=== PATIENT | male | born 1930 | race Caucasian/White ===

== ENCOUNTER 2017-07-25 11:03 | Day surgery (SDC) | payer MEDICARE, OTHER ==
[~2017-07-25] VITALS: Ht 175.3 cm; Wt 83.0 kg
[~2017-07-25 11:03] MED LIST: AGGRCAP; ALTA5CAP; ASPI1TAB PO; ATOR1TAB19 PO; AVAN8TAB3; COLA100C5 PO; CYAN1000VL IM; GLUC1000; HYDR25TA6; LIPI10TA; METF10004 PO; OFLOXACIN 0.3 % (OCUFLOX) OPTH SOL 5ML OS ONE; OMEP20CA3 PO; PHENYLEPHRINE 2.5% OPHTH SOL 2ML OS ONE; PRIL20CA; PROPARACAINE 0.5% OPHTH SOL 15ML OS ONE; TRAD5TAB PO; TROPICAMIDE 1% OPHTH SOLN 2ML OS ONE; VITA100066 PO; VITAMIN B 12; [UNRECOGNIZED DRUG - OTHER] PO
[2017-07-25] MEDS ORDERED: MIDAZOLAM INJ 2 MG/2 ML VIAL (J2250) As Ordered ONE (14:28)
[2017-07-25] MEDS ORDERED: fentaNYL 100 MCG/2 ML INJECTION (J3010) As Ordered ONE (14:28)
[2017-07-25] MEDS ORDERED: DUOVISC (0.50ML VISCOAT/0.55ML PROVISC) OPHTH KIT As Ordered ONE (14:44)
[2017-07-25] MEDS ORDERED: BALANCED SALT IRRIGATION SOLUTION 500ML BAG (FOR OR EYE MACHINE) As Ordered ONE (14:44)
[2017-07-25] MEDS ORDERED: ACETYLCHOLINE OPHTH SOLN 1% 2ML (MIOCHOL-E) As Ordered ONE (14:44)
[2017-07-25] MEDS ORDERED: CEFUROXIME 1MG/0.1ML INTRACAMERAL INJ As Ordered ONE (14:44)
[2017-07-25] MEDS ORDERED: POVIDONE-IODINE 5% OPHTH PREP SOL 30ML As Ordered ONE (14:44)
[2017-07-25] MEDS ORDERED: LIDOCAINE 0.75%/EPINEPHRINE 0.025% IN BSS 1ML SYR INTRACAMERAL (OR ONLY) As Ordered ONE (14:44)
[2017-07-25] MEDS ORDERED: LABETALOL HCL 100 MG/20 ML VIAL As Ordered ONE (14:58)
[2017-07-25 15:45] VITALS: BP 238/103
--- NOTE | 2017-07-26 13:11 | RO ---
DATE OF PROCEDURE: 07/25/2017 PREOPERATIVE DIAGNOSIS: Visually significant nuclear sclerotic cataract left eye. POSTOPERATIVE DIAGNOSIS: Visually significant nuclear sclerotic cataract left eye. PROCEDURE: Cataract extraction with use of phacoemulsification and placement of intraocular lens, AU00T0, 25 diopter, left eye. SURGEON: Arnaldo Flores DO SAMPLE HAND: ANESTHESIA: Local with monitored anesthesia care (MAC). COMPLICATIONS: None. POSTOPERATIVE CONDITION: Stable. INDICATION FOR SURGERY: Blurred vision left eye affecting patient's activities of daily living. DESCRIPTION OF PROCEDURE: The patient was seen in the preoperative area and properly identified. The correct operative eye was identified and marked. Attention was turned to that eye. The patient received topical antibiotics in the preoperative area. The patient then received topical dilating drops consisting of tropicamide and phenylephrine. The patient was then transferred to the operating room. The correct side was re-identified. The patient received topical anesthetics and antibiotics on the surface of the eye. The eye was prepped and draped in a sterile fashion. The upper and lower eyelids were isolated with Tegaderm tape, and the lids were held open with an adjustable speculum. Using a sideport blade, a paracentesis incision was made. Intraocular preservative-free lidocaine was then injected into the anterior chamber. Viscoelastic was then injected into the anterior chamber through the paracentesis. Using a 2.65 mm sharp-tipped keratome, the anterior chamber was entered via a temporal clear corneal incision. A continuous curvilinear capsulorrhexis was created with the aid of a 26-gauge cystotome and Utrata forceps. Hydrodissection was performed with balanced salt solution (BSS) on a blunt cannula until the nucleus was freely mobile. The crystalline lens was phacoemulsified and aspirated. Additional cohesive viscoelastic was placed into the capsular bag to deepen it. A AU00T0, 25 diopter lens was placed into the capsular bag and confirmed by visualizing the continuous curvilinear capsulorrhexis. Additional irrigation and aspiration was used to remove cortical material and remaining viscoelastic. The clear corneal incision was hydrated with BSS on a blunt cannula. The lens was well positioned. The incisions were then tested for leaks and found to be negative. The eye was then palpated for appropriate pressure and adjusted accordingly with BSS. The eyelid speculum was carefully removed. TobraDex ointment was placed in the eye. An eye patch and shield were then secured over the eye. The patient tolerated the procedure well and was discharged to the recovery unit in a stable condition.
== END 2017-07-25 16:10 | disposition home or self-care (01) ==
LOC: M SDC 11:03
PROVIDERS: ATTEND Ophthalmology
DX: H25.12 Age-related nuclear cataract, left eye (principal); E11.9 Type 2 diabetes mellitus without complications; Z79.82 Long term (current) use of aspirin; E78.4 Other hyperlipidemia; K21.9 Gastro-esophageal reflux disease without esophagitis; Z87.891 Personal history of nicotine dependence; Z79.899 Other long term (current) drug therapy
CPT/HCPCS: 66984; J2250; J3010; V2632

== ENCOUNTER 2017-08-01 08:48 | Day surgery (SDC) | payer MEDICARE, OTHER ==
[~2017-08-01] VITALS: Ht 175.3 cm; Wt 81.2 kg
[~2017-08-01 08:48] MED LIST changes: +OFLOXACIN 0.3 % (OCUFLOX) OPTH SOL 5ML OD ONE; -OFLOXACIN 0.3 % (OCUFLOX) OPTH SOL 5ML OS ONE; +PHENYLEPHRINE 2.5% OPHTH SOL 2ML OD ONE; -PHENYLEPHRINE 2.5% OPHTH SOL 2ML OS ONE; +PROPARACAINE 0.5% OPHTH SOL 15ML OD ONE; -PROPARACAINE 0.5% OPHTH SOL 15ML OS ONE; +TROPICAMIDE 1% OPHTH SOLN 2ML OD ONE; -TROPICAMIDE 1% OPHTH SOLN 2ML OS ONE
[2017-08-01] MEDS ORDERED: POVIDONE-IODINE 5% OPHTH PREP SOL 30ML As Ordered ONE (10:00)
[2017-08-01] MEDS ORDERED: BALANCED SALT IRRIGATION SOLUTION 500ML BAG (FOR OR EYE MACHINE) As Ordered ONE (10:00)
[2017-08-01] MEDS ORDERED: ACETYLCHOLINE OPHTH SOLN 1% 2ML (MIOCHOL-E) As Ordered ONE (10:00)
[2017-08-01] MEDS ORDERED: LIDOCAINE 0.75%/EPINEPHRINE 0.025% IN BSS 1ML SYR INTRACAMERAL (OR ONLY) As Ordered ONE (10:01)
[2017-08-01] MEDS ORDERED: DUOVISC (0.50ML VISCOAT/0.55ML PROVISC) OPHTH KIT As Ordered ONE (10:01)
[2017-08-01] MEDS ORDERED: CEFUROXIME 1MG/0.1ML INTRACAMERAL INJ As Ordered ONE (10:01)
[2017-08-01] MEDS ORDERED: fentaNYL 100 MCG/2 ML INJECTION (J3010) As Ordered ONE (10:15)
[2017-08-01] MEDS ORDERED: MIDAZOLAM INJ 2 MG/2 ML VIAL (J2250) As Ordered ONE (10:15)
[2017-08-01 11:05] VITALS: BP 181/84
--- NOTE | 2017-08-02 20:06 | RO ---
DATE OF PROCEDURE: 08/01/2017 PREOPERATIVE DIAGNOSES: 1. Visually significant nuclear sclerotic cataract right eye. 2. Small pupil right eye. POSTOPERATIVE DIAGNOSES: 1. Visually significant nuclear sclerotic cataract right eye. 2. Small pupil right eye. PROCEDURE: Complex cataract extraction with insertion of intraocular lens implant right eye with use of iRing. Implant AU00T0, 24.5D, right eye. SURGEON: Arnaldo Flores DO MANAGER CONCRETE: ANESTHESIA: Local with monitored anesthesia care (MAC) COMPLICATIONS: None. POSTOPERATIVE CONDITION: Stable. INDICATION FOR SURGERY: Blurred vision right eye affecting patient's activities of daily living. DESCRIPTION OF PROCEDURE: The patient was seen in the preoperative area and properly identified. The correct operative eye was identified and marked. Attention was turned to that eye. The patient received optical antibiotics in the preoperative area. The patient then received topical dilating drops consisting of tropicamide and phenylephrine. The patient was then transferred to the operating room. The correct side was reidentified. The patient received topical anesthetics and antibiotics on the surface of the eye. The eye was prepped and draped in a sterile fashion. The upper and lower eyelids were isolated with Tegaderm tape, and the lids were held open with an adjustable speculum. Using a sideport blade, a paracentesis incision was made. Lidocaine was then injected into the anterior chamber. Viscoelastic was then injected into the anterior chamber through the paracentesis. Using a 2.4 mm sharp-tipped keratome, the anterior chamber was entered via a temporal clear corneal incision. An iRing was used to expand the pupil. A continuous curvilinear capsulorrhexis was created with the aid of a 26-gauge cystotome and Utrata forceps. Hydrodissection was performed with BSS on a blunt cannula until the nucleus was freely mobile. The crystalline lens was phacoemulsified and aspirated. Additional cohesive viscoelastic was placed into the capsular bag to deepen it. An AU00T0, 24.5 diopters lens was placed into the capsular bag and confirmed by visualizing the anterior capsulorrhexis, the iRing was then removed. Additional irrigation and aspiration was used to remove cortical material. The Malyugin ring was removed from the eye, and irrigation and aspiration was then used removing the remaining viscoelastic. The clear corneal incision was hydrated with BSS on a blunt cannula. The lens was well positioned. The incisions were then tested for leaks and found to be negative. The eye was then palpated for appropriate pressure and adjusted accordingly with BSS. The eyelid speculum was then carefully removed. A shield was placed over the eye. The patient tolerated the procedure well and was discharged to the recovery unit in a stable condition. CLYDE
== END 2017-08-01 11:34 | disposition home or self-care (01) ==
LOC: M SDC 08:48
PROVIDERS: ATTEND Ophthalmology
DX: H25.11 Age-related nuclear cataract, right eye (principal); H57.03 Miosis; I10 Essential (primary) hypertension; E11.9 Type 2 diabetes mellitus without complications; E78.5 Hyperlipidemia, unspecified; N40.0 Benign prostatic hyperplasia without lower urinary tract symptoms; E53.8 Deficiency of other specified B group vitamins; Z79.899 Other long term (current) drug therapy; Z79.82 Long term (current) use of aspirin; Z79.84 Long term (current) use of oral hypoglycemic drugs; Z87.891 Personal history of nicotine dependence; Z86.73 Personal history of transient ischemic attack (TIA), and cerebral infarction without residual deficits
CPT/HCPCS: 66982; J2250; J3010; V2632

== ENCOUNTER → 2019-09-24 | Outpatient (CLI) | payer MEDICARE, OTHER ==
[~2019-09-24] MED LIST changes: +AGGR1CAP; -AGGRCAP; -ASPI1TAB PO; +ASPI81TA26 PO; -OFLOXACIN 0.3 % (OCUFLOX) OPTH SOL 5ML OD ONE; +OMEP1CAP73 PO; -OMEP20CA3 PO; -PHENYLEPHRINE 2.5% OPHTH SOL 2ML OD ONE; -PROPARACAINE 0.5% OPHTH SOL 15ML OD ONE; -TROPICAMIDE 1% OPHTH SOLN 2ML OD ONE
[2019-09-24 11:13] LABS: ALBUMIN 3.2 GM/DL (3.2-5.2); BILIRUBIN,TOTAL 0.6 MG/DL (0.2-1.0); CALCIUM LEVEL 8.2 MG/DL (8.8-10.2); CREATININE FOR GFR 1.92 MG/DL (0.70-1.30); GLOMERULAR FILTRATION RATE 35.5 (>35); POTASSIUM SERUM 4.5 MEQ/L (3.5-5.1); TOTAL PROTEIN 5.9 GM/DL (6.4-8.2)
[2019-09-24 11:54] LABS: HEMOGLOBIN A1c 5.6 %
== END ==
LOC: M LAB 10:04
PROVIDERS: ATTEND Internal Medicine
DX: E11.22 Type 2 diabetes mellitus with diabetic chronic kidney disease (principal); N18.9 Chronic kidney disease, unspecified

== ENCOUNTER → 2020-04-01 | Outpatient (CLI) | payer MEDICARE, OTHER ==
[~2020-04-01] MED LIST changes: +FURO40TA2 PO; +ISOS20TA PO; +ISOS30TA4 PO; +SPIR-10 PO
[2020-04-30 04:28] LABS: BASO % 0.5 % (0.0-1.0); EOS # 0.1 10^3/uL (0.0-0.5); EOS % 2.7 % (0.0-3.0); HEMATOCRIT 36.1 % (42.0-52.0); HEMOGLOBIN 11.6 g/dl (13.5-17.5); LYMPH # 0.7 10^3/uL (1.5-5.0); LYMPH % 16.2 % (24.0-44.0); MEAN CORPUSCULAR HEMOGLOBIN 30.7 pg (27.0-33.0); MEAN CORPUSCULAR HGB CONC 32.1 g/dl (32.0-36.5); MEAN CORPUSCULAR VOLUME 95.5 fl (80.0-96.0); MONO # 0.3 10^3/uL (0.0-0.8); MONO % 6.6 % (0.0-5.0); NEUTROPHILS # 3.2 10^3/uL (1.5-8.5); PLATELET COUNT, AUTOMATED 156 10^3/uL (150-450); RED BLOOD COUNT 3.78 10^6/uL (4.30-6.10); WHITE BLOOD COUNT 4.4 10^3/uL (4.0-10.0)
[2020-05-16 07:59] LABS: HEMOGLOBIN A1c 5.8 %
[2020-05-16 08:00] LABS: ALT/SGPT 21 U/L (12-78); BILIRUBIN,TOTAL 0.6 MG/DL (0.2-1.0); BLOOD UREA NITROGEN 36 MG/DL (7-18); CALCIUM LEVEL 8.2 MG/DL (8.8-10.2); CARBON DIOXIDE LEVEL 27 MEQ/L (21-32); CHLORIDE LEVEL 107 MEQ/L (98-107); CREATININE FOR GFR 2.37 MG/DL (0.70-1.30); GLOMERULAR FILTRATION RATE 27.8 (>35); GLUCOSE, FASTING 89 MG/DL (70-100); POTASSIUM SERUM 4.8 MEQ/L (3.5-5.1); SODIUM LEVEL 140 MEQ/L (136-145); TOTAL 25(OH) VITAMIN D 34.9 NG/ML (30.0-100.0)
== END ==
LOC: M LAB 09:03
PROVIDERS: ATTEND Internal Medicine
DX: E11.22 Type 2 diabetes mellitus with diabetic chronic kidney disease (principal); Z79.84 Long term (current) use of oral hypoglycemic drugs

== ENCOUNTER 2020-05-30 10:29 | Inpatient (IN) | payer MEDICARE, OTHER ==
[~2020-05-30] VITALS: Ht 172.7 cm; Wt 77.5 kg
[~2020-05-30 10:29] MED LIST changes: -FURO40TA2 PO; -ISOS20TA PO; -ISOS30TA4 PO; -SPIR-10 PO
[2020-05-30] MEDS ORDERED: ISOS30TA4 PO (10:44)
[2020-05-30] MEDS ORDERED: OMEP1CAP73 PO (11:15)
[2020-05-30 11:30] LABS: BASO % 0.6 % (0.0-1.0); EOS # 0.1 10^3/uL (0.0-0.5); EOS % 1.7 % (0.0-3.0); HEMATOCRIT 36.6 % (42.0-52.0); HEMOGLOBIN 11.5 g/dl (13.5-17.5); LYMPH # 0.6 10^3/uL (1.5-5.0); LYMPH % 18.4 % (24.0-44.0); MEAN CORPUSCULAR HEMOGLOBIN 30.2 pg (27.0-33.0); MEAN CORPUSCULAR HGB CONC 31.4 g/dl (32.0-36.5); MEAN CORPUSCULAR VOLUME 96.1 fl (80.0-96.0); MONO # 0.2 10^3/uL (0.0-0.8); MONO % 6.3 % (0.0-5.0); NEUTROPHILS # 2.5 10^3/uL (1.5-8.5); NEUTROPHILS % 72.4 % (36.0-66.0); PLATELET COUNT, AUTOMATED 150 10^3/uL (150-450); RED BLOOD COUNT 3.81 10^6/uL (4.30-6.10); WHITE BLOOD COUNT 3.5 10^3/uL (4.0-10.0)
[2020-05-30] MEDS ORDERED: LIDOCAINE 2% 5ML JELLY UROJET TOP ONE (11:30)
[2020-05-30 11:41] LABS: INR 1.15; PROTHROMBIN TIME 14.9 SECONDS (12.5-14.3)
--- NOTE | 2020-05-30 11:47 | REPVR ---
PROCEDURE INFORMATION: Exam: XR Chest, 1 View Exam date and time: 05/30/2020 11:01 AM Age: 89 years old Clinical indication: Shortness of breath; Additional info: Dyspnea/cough TECHNIQUE: Imaging protocol: XR of the chest Views: 1 view. (2 images total) COMPARISON: CR Abdomen,Flat Upright,PA CHEST 06/30/2016 8:47 AM FINDINGS: Lungs: The pulmonary vasculature is newly congested. There is bibasilar atelectasis as well. Pleural space: Very small right and small left pleural effusions have developed. Heart/Mediastinum: The cardiomediastinal silhouette is fairly stable in appearance. Bones/joints: Degenerative changes again involve the spine and shoulders. IMPRESSION: Very small right and small left pleural effusions with bibasilar atelectasis. Electronically signed by: Mike Gant On 05/30/2020 11:47:23 AM
[2020-05-30 12:18] LABS: ALBUMIN 2.9 GM/DL (3.2-5.2); BILIRUBIN,DIRECT 0.2 MG/DL (0.0-0.2); BILIRUBIN,TOTAL 0.6 MG/DL (0.2-1.0); THYROID STIMULATING HORMONE 9.79 uIU/ML (0.358-3.740); THYROXINE (T4) 3.6 UG/DL (4.5-12.0); TOTAL PROTEIN 6.1 GM/DL (6.4-8.2)
[2020-05-30] MEDS ORDERED: ACETAMINOPHEN TAB 650MG DOSE (2X325MG) PO PRN (13:00)
[2020-05-30] MEDS ORDERED: FUROSEMIDE 40MG/4ML VIAL (J1940) IV ONE ×2 (13:00→14:30)
[2020-05-30] MEDS: OMEPRAZOLE 20 MG CAP PO SCH (14:23)
[2020-05-30] MEDS: ASPIRIN 81 MG ENTERIC TAB PO SCH (14:23)
[2020-05-30] MEDS: HEPARIN SOD (PORCINE) 5000UNITS/ML 1ML VIAL/SYRINGE SC SCH (14:28)
[2020-05-30] MEDS ORDERED: DEXTROSE 50% 50 ML SYRINGE IV PRN (15:15)
[2020-05-30] MEDS ORDERED: GLUCAGON INJ 1MG VIAL SC PRN (15:15)
[2020-05-30] MEDS ORDERED: GLUCOSE 4GM CHEW TABLET PO PRN (15:15)
--- NOTE | 2020-05-30 15:42 | HPEPDOC ---
General Date of Admission May 30, 2020 at 12:58 Date of Service: May 30, 2020 Attending Physician: BRENT CUNNINGHAM MD Chief Complaint The patient is a 89-year-old male admitted with a reason for visit of Acute Renal Failure. Source: Patient Exam Limitations: No limitations Timing/Duration: Week(s) (1) Associated Symptoms: Other (LE edema) History of Present Illness 89 yo M with diet controlled DM2, HTN, HLD, GERD, CKD3 who presented from home with heaviness of his legs with severe LE edema and scrotal swelling that has gotten worse over the last 1 week with some associated TYLER and decreased exercise tolerance without any fariba chest pain, palpitations, fever, chills, cough, abdominal pain, nausea, vomiting, diarrhea or change in dietary habits. In the ED, BP was 208/100, HR 89 while he was afebrile and breathing comfortably on room air. He had LE anasarca to the lower abdomen with crackles bilaterally. Workup was notable for CXR with vascular congestion and small bilateral [place] [address], EKG with NSR and 1st degree heart block without acute ST changes, negative troponin,TSH of 9.79, free t4 3.6, LFTs wnl, WBC 3.5, hgb 11.5, platelets 150, na 139, K 4.8, BUN 41, Cr 3.4. He reports no history of congestive heart failure and his only cardiac linked chronic disease is hypertension that has been c/b intolerance to several classes of antihy pertensives which he does not remember but we have documented ACEi allergy. He is now being admitted to medicine for newly noted heart failure, hypertensive urgency and WILLIAM on CKD. Home Medications Scheduled Aspirin (Aspirin EC) 81 Mg Tab, 81 MG PO DAILY, (Reported) Cyanocobalamin (Cyanocobalamin Injection) 1,000 Mcg/1 Ml Inj, 1,000 MCG IM ASDIRECTED, (Reported) RECEIVES EVERY 10 DAYS Isosorbide Mononitrate (Isosorbide Mononitrate ER) 30 Mg Tab.er.24h, 30 MG PO QHS, (Reported) Omeprazole (Omeprazole) 20 Mg Capsule.dr, 20 MG PO DAILY, (Reported) Allergies Coded Allergies: ramipril (Verified Adverse Reaction, Mild, DIZZINESS, 05/30/20) Past Medical History Medical History diet controlled DM2 HTN HLD GERD CKD3 History of pernicious anemia Surgical History Ex-lap for SBO Appendectomy Cataract surgery Family History Significant Family History: No pertinent family hx Social History * Smoker: Denies Alcohol: Denies Drugs: denies Recent Travel/Sick Contacts: Denies: Recent travel, Recent sick contacts Psychosocial History: No pertinent psych hx A-FIB/CHADSVASC A-FIB History Current/History of A-Fib/PAF?: No Current PO Anticoag Therapy: No Age/Risk Factor Scoring CHADSVASC: CHADSVASC Response (Comments) Value Age Risk Factor Age >/= 75 years old 2 Gender Risk Factor Male 0 Hx of CHF Yes 1 Hx of HTN Yes 1 Hx of Stroke/TIA/or VTE No 0 Hx of Diabetes Yes 1 Hx of Vascular Disease No 0 Total 5 Treatment Treatment ordered: NONE Reason Anticoagulant not given: Not indicated/[id number] Review of Systems Constitutional: Reports: Fatigue; Denies: Chills, Fever, Night Sweats, Weakness, Weight Loss, Lethargy Eyes: Denies: Pain, Vision change ENT: Denies: Head Aches, Ear Pain, Dysphagia Skin: Denies: Rash, Lesions, Breakdown Pulmonary: Reports: Dyspnea (TYLER); Denies: Cough, Pleuritic Chest Pain Cardiovascular: Reports: Edema (massive LE edema to lower abdomen); Denies: Chest Pain, Palpitations, Orthopnea, Paroxysmal Noc. Dyspnea, Lt Headedness Gastrointestinal: Denies: Nausea, Vomiting, Abdominal Pain, Diarrhea Genitourinary: Denies: Dysuria, Frequency, Incontinence, Hematuria, Retention Hematologic: Denies: Bruising, Bleeding Excessively Endocrine: Denies: Polydipsia, Polyphagia, Polyuria, Heat Intolerance, Cold Intolerance, Other Endocrine Sx Musculoskeletal: Reports: Other Symptoms (Legs feel heavy); Denies: Neck Pain, Back Pain, Joint Pain, Muscle Pain, Spasms Neurological: Reports: Weakness (generalized); Denies: Incoordination, Change in speech, Confusion, Seizures Psych: Reports: Mood Normal; Denies: Depression, Memory Issues Physical Examination General Exam: Positive: Alert, No Acute Distress Eye Exam: Positive: PERRLA, Conjunctiva & lids normal, EOMI; Negative: Sclera icteric ENT Exam: Positive: Atraumatic, Mucous membr. moist/pink, Pharynx Normal Neck Exam: Positive: Supple, JVD (difficult to assess due to habitus); Negative: thyromegaly, Lymphadenopathy Chest Exam: Positive: Normal air movement, Rales (bibasilar to middle of posterior lung nath ); Negative: Rhonchi, Wheezing Heart Exam: Positive: Rate Normal, Regular Rhythm, Normal S1, Normal S2; Negative: Murmurs, Rubs Telemetry: Positive: No significant arrhythmia Abdomen Exam: Positive: Normal bowel sounds, Soft, Other (obese); Negative: Tenderness, Hepatospenomegaly Extremity Exam: Positive: Edema (LE anasarca with scrotal edema to lower abdomen), Normal pulses; Negative: Clubbing, Cyanosis, Tenderness Skin Exam: Positive: Nl turgor and temperature, Other skin issue (scattered varicosities and spider veins); Negative: Breakdown, Lesion Neuro Exam: Positive: Normal Speech, Strength at 5/5 X4 ext, Normal Tone, Sensation Intact, Cranial Nerves 3-12 NL Psych Exam: Positive: Mental status NL, Oriented x 3 Vital Signs Vital Signs Date Time Temp Pulse Resp B/P (MAP) Pulse Ox O2 Delivery O2 Flow Rate FiO2 05/30/20 12:30 79 185/92 (123) 94 Room Air 05/30/20 11:45 18 05/30/20 10:30 97.7 Laboratory Data Labs 24H Laboratory Tests 2 05/30/20 11:14: Immature Granulocyte % (Auto) 0.6, Neutrophils (%) (Auto) 72.4H, Lymphocytes (%) (Auto) 18.4L, Monocytes (%) (Auto) 6.3H, Eosinophils (%) (Auto) 1.7, Basophils (%) (Auto) 0.6, Neutrophils # (Auto) 2.5, Lymphocytes # (Auto) 0.6L, Monocytes # (Auto) 0.2, Eosinophils # (Auto) 0.1, Basophils # (Auto) 0.0, Nucleated Red Blood Cells % (auto) 0.0, Prothrombin Time 14.9H, Prothromb Time International Ratio 1.15, Total Bilirubin 0.6, Direct Bilirubin 0.2, Aspartate Amino Transf (AST/SGOT) 24, Alanine Aminotransferase (ALT/SGPT) 29, Alkaline Phosphatase 91, RU-Vqf-X-Type Natriuretic Peptide [id number], Total Protein 6.1L, Albumin 2.9L, Albumin/Globulin Ratio 0.9, Thyroid Stimulating Hormone (TSH) 9.790H, Thyroxine (T4) 3.6L CBC/BMP Laboratory Tests 05/30/20 11:14 Microbiology Microbiology 05/30/20 Blood Culture, Received Pending 05/30/20 Blood Culture, Received Pending Assessment/Plan 89 yo M with diet controlled DM2, HTN, HLD, GERD, CKD3 who is being admitted for new onset heart failure without evidence of ACS, WILLIAM on CKD and hypertensive urgency. Congestive heart failure: peripheral edema, crackles, elevated proBNP, CXR with vascular congestion. -Lasix 40mg IV Q8H -strict I/Os -2g sodium diet, with consistent carb -2L/24h fluid restriction -Had glynn placed in ED due to difficulty voiding (may have BPH as well), will keep for 24-48h for critical monitoring -TTE -EKG was NSR with 1st degree heart block -Troponin was negative -TSH was high with a low free T4, will need recheck once acute illness has resolved -Telemetry -Will need cardiology referral at discharge as this is new onset HF WILLIAM on CKD: likely congestive (last documented Cr was 2.4) -diurese as discussed above -daily BMP -urine lytes for FeNa -will hold off on renal imaging, to pursue if no improvement with diuresis HTN urgency: -diuresis with lasix (lasix naive) as noted above -continue home imdur QHS, will likely need uptitration. -Of note has had intolerance to multiple antihypertensives, patient not sure which ones, we have noted ACEi allergy DM2: -SSI AC/HS -FSBG AC/HS -hypoglycemia protocol -consistent carb diet GERD: -continue home omeprazole History of pernicious anemia -continue IM Vit B12 Q10D DVT ppx: heparic SC Q12H Dispo: PCU Plan / VTE VTE Prophylaxis Ordered?: Yes BRENT CUNNINGHAM MD May 30, 2020 15:42
[2020-05-30] MEDS ORDERED: FUROSEMIDE 40MG/4ML VIAL (J1940) IV SCH ×2 (16:00)
[2020-05-30 18:24] VITALS: BP 185/110
[2020-05-30] MEDS: HumaLOG INSULIN (NovoLOG) PER UNIT SC SCH ×2 (18:59→20:57)
[2020-05-30] MEDS ORDERED: SLF 3 ML SYR IV PRN (19:00)
--- NOTE | 2020-05-30 19:45 | ECGEPIP ---
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
[2020-05-30 20:00] VITALS: BP 169/84
[2020-05-30] MEDS ORDERED: LABETALOL 100MG/20ML VIAL IV ONE (20:00)
[2020-05-30] MEDS: ISOSORBIDE MON. (IMDUR) 30 MG XR TAB PO SCH (20:57)
[2020-05-30] MEDS: SLF 3 ML SYR IV SCH (20:58)
[2020-05-30 21:15] VITALS: BP 134/72
[2020-05-31] VITALS: BP 138/64
[2020-05-31] MEDS: HEPARIN SOD (PORCINE) 5000UNITS/ML 1ML VIAL/SYRINGE SC SCH ×2 (00:42→12:44)
[2020-05-31] MEDS: FUROSEMIDE 40MG/4ML VIAL (J1940) IV SCH ×3 (00:42→16:44)
[2020-05-31 04:00] VITALS: BP 140/84
[2020-05-31] MEDS: SLF 3 ML SYR IV SCH ×3 (05:24→21:09)
[2020-05-31 05:39] LABS: HEMATOCRIT 34.2 % (42.0-52.0); HEMOGLOBIN 10.7 g/dl (13.5-17.5); MEAN CORPUSCULAR HEMOGLOBIN 30.1 pg (27.0-33.0); MEAN CORPUSCULAR HGB CONC 31.3 g/dl (32.0-36.5); MEAN CORPUSCULAR VOLUME 96.1 fl (80.0-96.0); PLATELET COUNT, AUTOMATED 156 10^3/uL (150-450); RED BLOOD COUNT 3.56 10^6/uL (4.30-6.10); WHITE BLOOD COUNT 4.6 10^3/uL (4.0-10.0)
[2020-05-31 06:02] LABS: CALCIUM LEVEL 7.8 MG/DL (8.8-10.2); CREATININE FOR GFR 3.11 MG/DL (0.70-1.30); GLOMERULAR FILTRATION RATE 20.3 (>35); MAGNESIUM LEVEL 1.3 MG/DL (1.8-2.4); POTASSIUM SERUM 5.3 MEQ/L (3.5-5.1)
[2020-05-31 08:00] VITALS: BP 160/100
[2020-05-31] MEDS ORDERED: FLUBLOK(EGG FREE)(QUAD)INFLUENZA VACC 0.5ML SYRINGE 18YRS & OLDER IM ONE (09:00)
[2020-05-31] MEDS: ASPIRIN 81 MG ENTERIC TAB PO SCH (09:19)
[2020-05-31] MEDS: MAG SULF 1GM/100ML (MAG RUN) 1 GM in IV 1 EA IV SCH ×2 (09:20→10:46)
[2020-05-31] MEDS: OMEPRAZOLE 20 MG CAP PO SCH (09:21)
[2020-05-31] MEDS: HumaLOG INSULIN (NovoLOG) PER UNIT SC SCH ×4 (09:22→21:00)
--- NOTE | 2020-05-31 11:04 | IPNPDOC ---
Text Note Date of Service The patient was seen on 05/31/20. NOTE Subjective: Patient is a 72-year-old male with a PMHx of Diet controlled DM2, HTN, DLP, CKD, GERD who presented from home with heaviness of his legs with severe LE edema and scrotal swelling that has gotten worse over the last 1 week with some associated TYLER and decreased exercise tolerance without any fariba chest pain, palpitations, fever, chills, cough, abdominal pain, nausea, vomiting, diarrhea or change in dietary habits. Patient was admitted to the hospital service for suspected decompensated heart failure. Patient was seen and examined at the bedside. Patient reports that his breathing is doing fine. Reports that his lower stories have had some improvement. Denies any chest pain, palpitations or cough. Denies any nausea, vomiting, abdominal pain or diarrhea. Patient has been up moving with physical therapy this morning. Objective: Vitals (See below) General: Sitting up in chair, appears to be comfortable, AAOx3 HEENT: NC, AT CVS: +S1S2 Lungs: Fair air entry b/l, mild crackles noted at bases. No wheezing or rhonchi Abdomen: Soft, nondistended and nontender Extremities: 2+ pitting edema bilaterally, - Calf tenderness Assessment and plan: Decompensated CHF - Patient reports that he has experience improvement of his lower survey swelling - Physical reveals diffuse pitting edema bilaterally and mild crackles at lung bases - Troponin negative - EKG reviewed with first-degree AV block; in sinus rhythm - Strict ins/outs, daily weights, fluid restriction - patient is fully catheter present for critical care monitoring; Has remained negative fluid balance - ECHO pending - c/w Furosemide WILLIAM on CKD - likely 2/2 cardiorenal syndrome - Creatinine on admission of 3.4; has trended down this morning - Baseline creatinine of 2.3 - Will avoid nephrotoxic medications - c/w Diuretics HTN urgency - c/w diuretics - c/w Imdur with holding parameters - Patient has an allergy to diego inhibitors NIDDM2 - c/w ISS Pernicious anemia - c/w Vitamin B12 GERD - c/w omeprazole DVT prophylaxis - c/w Heparin VS,Fishbone, I+O VS, Fishbone, I+O Laboratory Tests 05/30/20 11:14 05/31/20 05:21 Vital Signs Date Time Temp Pulse Resp B/P (MAP) Pulse Ox O2 Delivery O2 Flow Rate FiO2 05/31/20 08:00 97.3 83 16 160/100 (120) 93 Room Air I&O- Last 24 Hours up to 6 AM 05/31/20 06:00 Intake Total 460 ml Output Total 3400 ml Balance -[address] MD May 31, 2020 11:04
[2020-05-31 12:00] VITALS: BP 160/70
[2020-05-31 16:00] VITALS: BP 164/78
[2020-05-31 20:00] VITALS: BP 157/83
[2020-05-31] MEDS: ISOSORBIDE MON. (IMDUR) 30 MG XR TAB PO SCH (21:09)
[2020-06-01] VITALS: BP 131/89
[2020-06-01] MEDS: FUROSEMIDE 40MG/4ML VIAL (J1940) IV SCH ×2 (01:16→08:39)
[2020-06-01] MEDS: HEPARIN SOD (PORCINE) 5000UNITS/ML 1ML VIAL/SYRINGE SC SCH ×2 (01:17→12:02)
[2020-06-01 04:00] VITALS: BP 131/83
[2020-06-01 05:38] LABS: HEMATOCRIT 32.3 % (42.0-52.0); HEMOGLOBIN 10.2 g/dl (13.5-17.5); MEAN CORPUSCULAR HEMOGLOBIN 29.4 pg (27.0-33.0); MEAN CORPUSCULAR HGB CONC 31.6 g/dl (32.0-36.5); MEAN CORPUSCULAR VOLUME 93.1 fl (80.0-96.0); PLATELET COUNT, AUTOMATED 133 10^3/uL (150-450); RED BLOOD COUNT 3.47 10^6/uL (4.30-6.10); WHITE BLOOD COUNT 4.1 10^3/uL (4.0-10.0)
[2020-06-01] MEDS: SLF 3 ML SYR IV SCH ×3 (06:06→20:14)
[2020-06-01 06:11] LABS: CALCIUM LEVEL 7.9 MG/DL (8.8-10.2); CREATININE FOR GFR 3.15 MG/DL (0.70-1.30); POTASSIUM SERUM 4.6 MEQ/L (3.5-5.1)
[2020-06-01 08:00] VITALS: BP 150/79
[2020-06-01] MEDS: OMEPRAZOLE 20 MG CAP PO SCH (08:38)
[2020-06-01] MEDS: HumaLOG INSULIN (NovoLOG) PER UNIT SC SCH ×4 (08:38→20:17)
[2020-06-01] MEDS: ASPIRIN 81 MG ENTERIC TAB PO SCH (08:38)
[2020-06-01 08:44] LABS: MAGNESIUM LEVEL 1.7 MG/DL (1.8-2.4)
[2020-06-01] MEDS ORDERED: MAG SULF 1GM/100ML (MAG RUN) 1 GM in IV 1 EA IV ONE (10:15)
[2020-06-01 12:00] VITALS: BP 160/68
--- NOTE | 2020-06-01 12:16 | IPNPDOC ---
Text Note Date of Service The patient was seen on 06/01/20. NOTE Subjective: Patient is a 72-year-old male with a PMHx of Diet controlled DM2, HTN, DLP, CKD, GERD who presented from home with heaviness of his legs with severe LE edema and scrotal swelling that has gotten worse over the last 1 week with some associated TYLER and decreased exercise tolerance without any fariba chest pain, palpitations, fever, chills, cough, abdominal pain, nausea, vomiting, diarrhea or change in dietary habits. Patient was admitted to the hospital service for suspected decompensated heart failure. Patient was seen and examined at the bedside. Currently patient is laying in bed, does not appear to be in any distress. Reports that his breathing is fine, denies a cough, chest pain or palpitations. Has not experience any nausea, vo miting, abdominal pain, diarrhea, or urinary discomfort. He does report that his lower extremity swelling has improved significantly. Objective: Vitals (See below) General: Laying in bed, does not appear to be in any distress, AAOx3 HEENT: NC, AT CVS: +S1S2 Lungs: Air entry is fair bilaterally without evidence of rhonchi, crackles or wheezing Abdomen: Abdomen remains soft without any distention or tenderness Extremities: Lower extremities reveal edema, currently at 1+ improved from yesterday, - Calf tenderness Assessment and plan: Decompensated CHF - Patient reports that his lower extremity swelling has improved - Improvement of lower extremity edema - Troponin negative - EKG reviewed with first-degree AV block; in sinus rhythm - Strict ins/outs, daily weights, fluid restriction - ECHO complete; report pending - c/w Furosemide; will adjust oral WILLIAM on CKD - likely 2/2 cardiorenal syndrome - Creatinine on admission of 3.4; has trended down and remained in the same range - Baseline creatinine of 2.3 on 03/2020 - discussed with primary care provider, no additional creatinine value since that point - Will avoid nephrotoxic medications - Will adjust diuretics today HTN urgency - c/w diuretics - c/w Imdur with holding parameters - Patient has an allergy to diego inhibitors NIDDM2 - c/w ISS Pernicious anemia - c/w Vitamin B12 GERD - c/w omeprazole DVT prophylaxis - c/w Heparin Disposition: - Anticipate discharge within the next 24 hours VS,Fishbone, I+O VS, Fishbone, I+O Laboratory Tests 06/01/20 05:25 Vital Signs Date Time Temp Pulse Resp B/P (MAP) Pulse Ox O2 Delivery O2 Flow Rate FiO2 06/01/20 08:00 97.4 90 16 150/79 (102) 92 Room Air I&O- Last 24 Hours up to 6 AM 06/01/20 06:00 Intake Total 840 ml Output Total 3575 ml Balance -[address] MD Jun 01, 2020 12:16
[2020-06-01 16:00] VITALS: BP 155/83
[2020-06-01] MEDS: FUROSEMIDE 40 MG TAB PO SCH (16:51)
[2020-06-01 20:00] VITALS: BP 156/88
[2020-06-01] MEDS: ISOSORBIDE MON. (IMDUR) 30 MG XR TAB PO SCH (20:15)
[2020-06-02] VITALS: BP 128/70
[2020-06-02] MEDS: HEPARIN SOD (PORCINE) 5000UNITS/ML 1ML VIAL/SYRINGE SC SCH (00:10)
[2020-06-02 04:00] VITALS: BP 159/74
[2020-06-02] MEDS: SLF 3 ML SYR IV SCH (04:22)
[2020-06-02 06:05] LABS: HEMATOCRIT 35.6 % (42.0-52.0); HEMOGLOBIN 11.5 g/dl (13.5-17.5); MEAN CORPUSCULAR HEMOGLOBIN 30.1 pg (27.0-33.0); MEAN CORPUSCULAR HGB CONC 32.3 g/dl (32.0-36.5); MEAN CORPUSCULAR VOLUME 93.2 fl (80.0-96.0); PLATELET COUNT, AUTOMATED 160 10^3/uL (150-450); RED BLOOD COUNT 3.82 10^6/uL (4.30-6.10); WHITE BLOOD COUNT 3.9 10^3/uL (4.0-10.0)
[2020-06-02 06:33] LABS: CALCIUM LEVEL 8.2 MG/DL (8.8-10.2); CREATININE FOR GFR 3.09 MG/DL (0.70-1.30); GLOMERULAR FILTRATION RATE 20.5 (>35); POTASSIUM SERUM 4.3 MEQ/L (3.5-5.1)
[2020-06-02] MEDS: HumaLOG INSULIN (NovoLOG) PER UNIT SC SCH (07:30)
--- NOTE | 2020-06-02 07:47 | ECHO ---
DATE OF PROCEDURE: 05/30/2020 Age: 89 Gender: Male Height: 172 cm Weight: 77 kg REFERRING PHYSICIAN: Dr. Chan INDICATION: Congestive heart failure. MEASUREMENTS: IVS 1.1 LV 5.3 LVPW 1.1 LA 3.8 Aorta 2.9 Mitral E wave velocity 56, A wave 130 E prime septal 2.8 E prime lateral 3.9 FINDINGS: The study is of rather limited technical quality. The patient is in sinus rhythm with frequent ectopic beats. Left ventricle is normal size. There is global severe hypokinesis and I estimate overall left ventricular ejection fraction (LVEF) of approximately 25%. The right ventricle appears to be normal size and systolic function. Both atria appear enlarged. The aortic valve is mildly sclerotic, but has normal mobility. Same applies for mitral valve that has degenerative abnormalities, but mobility is preserved. Tricuspid valve appears normal. Pulmonic valve was not seen. There is approximately a small to moderate size circumferential pericardial effusion without any signs of cardiac compression. Inferior vena cava was not visualized. Aortic root appears normal. Aortic arch and abdominal aorta were not well seen. Doppler interrogation reveals competent aortic valve without significant stenosis or insufficiency. There is approximately moderate mitral insufficiency with slightly eccentric MR jet. There is at least moderate tricuspid insufficiency. Calculated pulmonary artery pressure is at least in 70-75 mmHg corresponding to moderately severe to severe pulmonary hypertension. Mitral inflow pattern and tissue Doppler imaging of mitral annulus reveals grade 1 diastolic dysfunction, but tissue Doppler velocities of mitral annulus are very low indicative of advanced diastolic dysfunction. CONCLUSIONS: 1. The study is of adequate technical quality, the patient is in sinus rhythm. 2. Normal LV size with global left ventricular systolic dysfunction and overall estimated left ventricular ejection fraction (LVEF) around 25%. Grade 1 diastolic dysfunction. 3. Aortic sclerosis, but no significant stenosis. 4. Approximately moderate mitral insufficiency due to degenerative abnormalities in mitral valve. 5. Approximately moderate tricuspid insufficiency. 6. Unable to estimate central venous pressure, but at least moderately severe pulmonary hypertension. 7. Small to moderate size, but non-compressive, pericardial effusion. COMMENTS: Consider ischemic, as well as nonischemic etiology of LV dysfunction. It is possible that pulmonary hypertension is severe enough to cause pericardial effusion. MTDD
[2020-06-02 08:00] VITALS: BP 185/90
[2020-06-02] MEDS: ASPIRIN 81 MG ENTERIC TAB PO SCH (08:32)
[2020-06-02] MEDS: OMEPRAZOLE 20 MG CAP PO SCH (08:32)
[2020-06-02] MEDS: FUROSEMIDE 40 MG TAB PO SCH (08:33)
[2020-06-02] MEDS ORDERED: ISOS20TA PO (08:39)
[2020-06-02] MEDS ORDERED: FURO40TA2 PO (08:39)
[2020-06-02] MEDS ORDERED: ISOSORBIDE MONONITRATE 10MG TABLET PO SCH (09:00)
[2020-06-02] MEDS ORDERED: SPIR-10 PO (09:51)
[2020-06-02 09:52] VITALS: BP 185/90
--- NOTE | 2020-06-02 10:26 | DS.PDOC ---
Discharge Summary General Date of Admission May 30, 2020 at 12:58 Date of Discharge 06/02/2020 Discharge Summary PROCEDURES PERFORMED DURING STAY: [None]. ADMITTING DIAGNOSES / DISCHARGE DIAGNOSES: s/p Decompensated Systolic and Diastolic CHF WILLIAM on CKD - likely 2/2 cardiorenal syndrome, possibly with worsening of underlying renal function HTN urgency NIDDM2 Pernicious anemia GERD DVT prophylaxis COMPLICATIONS/CHIEF COMPLAINT: Leg swelling HISTORY OF PRESENT ILLNESS: Patient is a 72-year-old male with a PMHx of Diet controlled DM2, HTN, DLP, CKD, GERD who presented from home with heaviness of his legs with severe LE edema and scrotal swelling that has gotten worse over the last 1 week with some associated TYLER and decreased exercise tolerance without any fariba chest pain, palpitations, fever, chills, cough, abdominal pain, nausea, vomiting, diarrhea or change in dietary habits. Patient was admitted to the hospital service for suspected decompensated heart failure. HOSPITAL COURSE: s/p Decompensated Systolic and Diastolic CHF - Clinically patient reports that he feels significantly better. Physical does reveal significant improvement of lower extremity swelling - Troponin negative - EKG reviewed with first-degree AV block; in sinus rhythm - Strict ins/outs, daily weights, fluid restriction - ECHO 05/30: 1. The study is of adequate technical quality, the patient is in sinus rhythm. 2. Normal LV size with global left ventricular systolic dysfunction and overall estimated left ventricular ejection fraction (LVEF) around 25%. Grade 1 diastolic dysfunction. 3. Aortic sclerosis, but no significant stenosis. 4. Approximately moderate mitral insufficiency due to degenerative abnormalities in mitral valve. 5. Approximately moderate tricuspid insufficiency. 6. Unable to estimate central venous pressure, but at least moderately severe pulmonary hypertension. 7. Small to moderate size, but noncompressive, pericardial effusion. - c/w Furosemide at current dose - c/w Isosorbide mononitrate; adjusted to BID dosing - Will add spironolactone on discharge - Discussed ECHO results with cardiology and will have outpatient follow-up within the next 7 days WILLIAM on CKD - likely 2/2 cardiorenal syndrome, possibly with worsening of underlying renal function - Creatinine on admission of 3.4; has trended down and remained in the same range - Baseline creatinine of 2.3 on 03/2020 - discussed with primary care provider, no additional creatinine value since that point - Advised patient to avoid nephrotoxic medications - c/w current diuretics - Will have outpatient lab work (BMP) completed 06/04; results that he forwarded nephrology and primary care provider - Will have outpatient follow-up with nephrology within the next 7 days HTN urgency - c/w diuretics - c/w Imdur with holding parameters - Patient has an allergy to diego inhibitors NIDDM2 - c/w ISS Pernicious anemia - c/w Vitamin B12 GERD - c/w omeprazole DVT prophylaxis - c/w Heparin DISCHARGE MEDICATIONS: Please see below. ALLERGIES: Please see below. PHYSICAL EXAMINATION ON DISCHARGE: Vitals (See below) General: Laying in bed, does not appear to be in any distress, is awake, alert and oriented 3 HEENT: NC, AT CVS: +S1S2 Lungs: There appears to be fair air entry bilaterally without evidence of rhonchi, crackles or wheezing Abdomen: Abdomen is soft without any distention or tenderness Extremities: Lower extremities with 1+ pitting edema - improved, - Calf tenderness LABORATORY DATA: Please see below. ACTIVITY: [As tolerated]. DISCHARGE PLAN: Follow-up with Dr. Woody, Dr. Cha and Dr. Miranda within the next 7 days Remain complaint with treatment plan and medications Return to the ER if you experience any problems DISPOSITION: Home with services DISCHARGE CONDITION: [Stable]. TIME SPENT ON DISCHARGE: 35 minutes. Vital Signs/I&Os Vital Signs Date Time Temp Pulse Resp B/P (MAP) Pulse Ox O2 Delivery O2 Flow Rate FiO2 06/02/20 09:52 185/90 06/02/20 08:00 97.7 72 14 95 Room Air I&O- Last 24 Hours up to 6 AM 06/02/20 06:00 Intake Total 1380 ml Output Total 2550 ml Balance -1170 ml Laboratory Data Labs 24H Laboratory Tests 2 06/01/20 11:53: Bedside Glucose (Misc Panel) 145H 06/01/20 17:11: Bedside Glucose (Misc Panel) 59L 06/01/20 17:44: Bedside Glucose (Misc Panel) 55L 06/01/20 18:34: Bedside Glucose (Misc Panel) 97 06/01/20 20:17: Bedside Glucose (Misc Panel) 122H 06/02/20 05:44: Nucleated Red Blood Cells % (auto) 0.0, Anion Gap 7L, Glomerular Filtration Rate 20.5L, Calcium Level 8.2L CBC/BMP Laboratory Tests 06/02/20 05:44 FSBS Laboratory Tests Test 06/01/20 11:53 06/01/20 17:11 06/01/20 17:44 06/01/20 18:34 Range/Units Bedside Glucose (Misc Panel) 145 59 55 97 83-110 MG/DL Test 06/01/20 20:17 Range/Units Bedside Glucose (Misc Panel) 122 83-110 MG/DL Microbiology Microbiology 05/30/20 Blood Culture - Preliminary, Resulted No Growth after 48 hours. All Specime... 05/30/20 Blood Culture - Preliminary, Resulted No Growth after 48 hours. All Specime... Discharge Medications Scheduled Aspirin (Aspirin EC) 81 Mg Tab, 81 MG PO DAILY, (Reported) Cyanocobalamin (Cyanocobalamin Injection) 1,000 Mcg/1 Ml Inj, 1,000 MCG IM ASDIRECTED, (Reported) RECEIVES EVERY 10 DAYS Furosemide (Furosemide) 40 Mg Tablet, 40 MG PO BID@ Isosorbide Mononitrate (Isosorbide Mononitrate) 20 Mg Tablet, 20 MG PO BID Omeprazole (Omeprazole) 20 Mg Capsule.dr, 20 MG PO DAILY, (Reported) Spironolactone (Spironolactone) 25 Mg Tablet, 0.5 TAB PO DAILY Allergies Coded Allergies: ramipril (Verified Adverse Reaction, Mild, DIZZINESS, 05/30/20) BRI WAY MD Jun 02, 2020 10:26
[2020-06-02 12:00] VITALS: BP 160/80
[2020-06-07] MEDS ORDERED: CYANOCOBALAMIN 1,000MCG/ML VIAL (J3420) IM SCH (13:00)
== END 2020-06-02 12:10 | disposition home or self-care (01) | DRG 291 ==
LOC: M ED 10:29 → M ED INP 12:58 → ENRESERV 14:47 → M PCU 18:03
PROVIDERS: ADMIT Internal Medicine; ATTEND Internal Medicine
DX: I13.0 Hypertensive heart and chronic kidney disease with heart failure and stage 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, or unspecified chronic kidney disease (principal); I50.43 Acute on chronic combined systolic (congestive) and diastolic (congestive) heart failure; N17.9 Acute kidney failure, unspecified; N18.30 Chronic kidney disease, stage 3 unspecified; I16.0 Hypertensive urgency; K21.9 Gastro-esophageal reflux disease without esophagitis; E11.9 Type 2 diabetes mellitus without complications; D51.0 Vitamin B12 deficiency anemia due to intrinsic factor deficiency; Z79.899 Other long term (current) drug therapy; Z88.8 Allergy status to other drugs, medicaments and biological substances; Z79.82 Long term (current) use of aspirin

== ENCOUNTER → 2020-06-04 | Outpatient (CLI) | payer MEDICARE, OTHER ==
[~2020-06-04] MED LIST changes: +FURO40TA2 PO; +ISOS20TA PO; +ISOS30TA4 PO; +SPIR-10 PO
[2020-06-04 10:27] LABS: CREATININE FOR GFR 2.97 MG/DL (0.70-1.30); GLOMERULAR FILTRATION RATE 21.4 (>35); POTASSIUM SERUM 4.4 MEQ/L (3.5-5.1)
== END ==
LOC: M LAB 09:15
PROVIDERS: ATTEND Internal Medicine
DX: K70.31 Alcoholic cirrhosis of liver with ascites (principal)

== ENCOUNTER → 2020-06-16 | Outpatient (CLI) | payer MEDICARE, OTHER ==
[2020-06-16 09:34] LABS: BASO % 0.4 % (0.0-1.0); EOS # 0.2 10^3/uL (0.0-0.5); EOS % 4.1 % (0.0-3.0); HEMATOCRIT 37.7 % (42.0-52.0); HEMOGLOBIN 11.6 g/dl (13.5-17.5); LYMPH # 0.9 10^3/uL (1.5-5.0); LYMPH % 19.9 % (24.0-44.0); MEAN CORPUSCULAR HEMOGLOBIN 29.8 pg (27.0-33.0); MEAN CORPUSCULAR HGB CONC 30.8 g/dl (32.0-36.5); MEAN CORPUSCULAR VOLUME 96.9 fl (80.0-96.0); MONO # 0.3 10^3/uL (0.0-0.8); MONO % 6.4 % (0.0-5.0); NEUTROPHILS # 3.2 10^3/uL (1.5-8.5); NEUTROPHILS % 68.6 % (36.0-66.0); PLATELET COUNT, AUTOMATED 149 10^3/uL (150-450); RED BLOOD COUNT 3.89 10^6/uL (4.30-6.10); WHITE BLOOD COUNT 4.7 10^3/uL (4.0-10.0)
[2020-06-16 10:22] LABS: CREATININE FOR GFR 3.05 MG/DL (0.70-1.30); GLOMERULAR FILTRATION RATE 20.8 (>35); POTASSIUM SERUM 4.4 MEQ/L (3.5-5.1)
[2020-06-16 10:23] LABS: ALBUMIN 3.2 GM/DL (3.2-5.2); BILIRUBIN,TOTAL 0.4 MG/DL (0.2-1.0); CALCIUM LEVEL 8.5 MG/DL (8.8-10.2); TOTAL PROTEIN 6.5 GM/DL (6.4-8.2)
== END ==
LOC: M LAB 08:31
PROVIDERS: ATTEND Internal Medicine
DX: 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, or unspecified chronic kidney disease (principal); I50.32 Chronic diastolic (congestive) heart failure

== ENCOUNTER 2020-07-26 12:24 | Emergency (ER) | payer MEDICARE, OTHER ==
[~2020-07-26] VITALS: Ht 172.7 cm; Wt 71.1 kg
[2020-07-26] MEDS ORDERED: ASPIRIN 81 MG CHEW TABLET PO ONE (13:15)
[2020-07-26 13:23] LABS: BASO % 0.4 % (0.0-1.0); EOS # 0.1 10^3/uL (0.0-0.5); EOS % 2.7 % (0.0-3.0); HEMOGLOBIN 11.5 g/dl (13.5-17.5); LYMPH # 0.9 10^3/uL (1.5-5.0); LYMPH % 17.6 % (24.0-44.0); MEAN CORPUSCULAR HGB CONC 31.9 g/dl (32.0-36.5); MONO # 0.3 10^3/uL (0.0-0.8); MONO % 6.6 % (0.0-5.0); NEUTROPHILS # 3.5 10^3/uL (1.5-8.5); NEUTROPHILS % 72.5 % (36.0-66.0); PLATELET COUNT, AUTOMATED 170 10^3/uL (150-450); RED BLOOD COUNT 3.83 10^6/uL (4.30-6.10); WHITE BLOOD COUNT 4.8 10^3/uL (4.0-10.0)
--- NOTE | 2020-07-26 13:23 | REP ---
INDICATION: CHEST PAIN. COMPARISON: Comparison chest x-ray May 30, 2020.. TECHNIQUE: Sitting AP portable radiograph. FINDINGS: Monitoring electrodes are seen. Cardiomediastinal silhouette is unremarkable. Aeration is improved compared with the May 30, 2020 study. Right hemidiaphragm is slightly elevated. No infiltrate is seen in the lung nath. Pleural angles are sharp. Pulmonary vasculature is not increased. IMPRESSION: No active cardiopulmonary disease seen. <Electronically signed by Edmundo Cain > 07/26/20 [id number]
[2020-07-26 13:46] LABS: INR 0.96
[2020-07-26 13:47] LABS: PARTIAL THROMBOPLASTIN TIME 26.5 SECONDS (24.2-38.5)
[2020-07-26 14:04] LABS: ALBUMIN 2.9 GM/DL (3.2-5.2); BILIRUBIN,DIRECT 0.1 MG/DL (0.0-0.2); BILIRUBIN,TOTAL 0.3 MG/DL (0.2-1.0); CALCIUM LEVEL 8.2 MG/DL (8.8-10.2); CK-MB VALUE MASS 5.2 NG/ML (<3.6); CREATININE FOR GFR 3.31 MG/DL (0.70-1.30); GLOMERULAR FILTRATION RATE 18.9 (>35); MB/CK RELATIVE INDEX 3.15 (< OR =4); POTASSIUM SERUM 4.7 MEQ/L (3.5-5.1); THYROID STIMULATING HORMONE 5.18 uIU/ML (0.358-3.740); TROPONIN I 0.03 NG/ML (< 0.10)
[2020-07-26 16:52] LABS: CK-MB VALUE MASS 5.2 NG/ML (<3.6); MB/CK RELATIVE INDEX 3.11 (< OR =4); TROPONIN I 0.04 NG/ML (< 0.10)
--- NOTE | 2020-07-26 17:08 | ECGEPIP ---
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
--- NOTE | 2020-07-26 17:11 | ECGEPIP ---
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
[2020-07-26 17:30] VITALS: BP 166/90
== END 2020-07-26 17:55 | disposition home or self-care (01) ==
LOC: M ED 12:24
DX: I20.9 Angina pectoris, unspecified (principal); I44.0 Atrioventricular block, first degree; R06.02 Shortness of breath; I10 Essential (primary) hypertension; E78.5 Hyperlipidemia, unspecified; Z86.73 Personal history of transient ischemic attack (TIA), and cerebral infarction without residual deficits; N40.0 Benign prostatic hyperplasia without lower urinary tract symptoms; K21.9 Gastro-esophageal reflux disease without esophagitis; Z79.82 Long term (current) use of aspirin; Z79.899 Other long term (current) drug therapy; Z88.8 Allergy status to other drugs, medicaments and biological substances

== ENCOUNTER 2020-09-24 12:55 | Emergency (ER) | payer MEDICARE, OTHER ==
[~2020-09-24] VITALS: Ht 172.7 cm; Wt 72.7 kg
--- OUTSIDE RECORDS SUMMARY | 2020-09-24 13:00 | CCD | Continuity of Care Document ---
Author Author Jose Ramon WOODY MD Organization Unknown Address [address] [place] [address], [address] [place] [address] Phone [phone] Care Team Providers Care Production Weigher Name Role Phone Frantz Woody MD AUTM [phone] Arnaldo Flores MD AUTM Unavailable Dmitriy Umaña MD AUTM [phone] Problems Active Problems Provider Date Vertigo Onset: 03/17/2015 Dizziness Onset: 01/19/2015 Hyperlipidemia Onset: 12/08/2012 Type 2 diabetes mellitus Onset: 12/09/19 13 Note: . Hypertensive disorder Onset: 12/08/2012 Benign prostatic hyperplasia Onset: 11/24 Note: . Cobalamin deficiency Onset: 02/24/2008 Chronic kidney disease stage 3 Frantz Woody MD Onset: Social History Type Date Description Comments Sex Unknown ETOH Use Denies alcohol use Recreational Drug Use Denies Drug Use Tobacco Use Start: Unknown End: Unknown Patient is a former smoker quit in 1983 Exercise Type/Frequency Exercises regularly Allergies, Adverse Reactions, Alerts Active Allergies Reaction Severity Comments Date Ramipril Hyperkalemia made ptoassium level drop Medications Active Medications SIG Qnty Indications Ordering Provide r Date Isosorbide Mononitrate 20mg Tablet s 1 tablet by mouth twice daily 60tabs Frantz Woody MD 05/26 Cyanocobalamin 1000mcg/ML Solution Inject 1ML Intramuscularly Every 10 Days 3units Frantz Woody MD 03/24/2019 Hydrocortisone 2.5% Cream apply by topical route every day to the affected area(s) needed 60gm Frantz Woody MD 07/29/2018 SM Vitamin D3 4,000 Unit SFTGL take 1 capsule by mouth daily 30unit s Frantz Woody MD 04/16/2017 Aspirin EC 81mg Tablets DR 1 by mouth every day Frantz Woody MD 12/01/[address] Take One Capsule By Mouth Every Day 90caps Frantz Woody MD 07/06 3ML Luer-Jose Francisco Syringe 22G X 1" 22G X 1" 3 ML Misc use directed to inject intramuscular b12 9units Frantz Woody MD 10/20/2014 Onetouch Ultra Blue Strips test two times a day directed. 200units E11.22 Frantz Woody MD 01/07/2013 BD Lancet Ultrafine 33G 33G Misc test two times a day directed. 200units Frantz Woody MD 013 Spironolactone 25mg Tablets 1/2 by mouth every day 15tabs Frantz Woody MD Furosemide 40mg Tablets 1 by mouth twice a day 30tabs Frantz Woody MD Hydralazine HCL 10mg Tablets 1 tablet by mouth 3 times daily 90tabs Frantz Woody MD History Medications Isosorbide Dinitrate 20mg Tablets 1 tablet by mouth twice daily 60tabs Frantz Woody MD 06/13/2020 - 06/13/2020 Isosorbide Mononitrate ER 30mg Tablets ER 24HR 1 by mouth daily AT bed time 30tabs Frantz Woody MD 03/31/2020 - 06/13/2020 Medications Administered in Office Medication SIG Qnty Indications Ordering Provider Date Vitamin B-12 (To 1000 mcg) Injection Frantz Woody MD 09/22/2019 Therapeutic, Prophylactic Or Diagnostic Injection Subq/Im Injection Noelle Rojas 09/22/2019 Administer Pneumococcal Vaccine No Physi [place] Fee Sched Same Day Injection Frantz saini MD 07/29/2018 Administer Influenza Virus Vaccine Injection Frantz Woody MD 07/10/2017 Vitamin B-12 (To 1000 mcg) Injection Frantz Woody MD 01/24/2017 Therapeutic, Prophylactic Or Diagnostic Injection Subq/Im Injection Noelle Rojas 01/24/2017 Administer Pneumococcal Vaccine No Physi [place] Fee Sched Same Day Injection Frantz saini MD 03/14/2016 Influenza,Unspecified Injection Unknown 05/28/2014 Influenza,Unspecified Injection Unknown 06/16/2013 Vitamin B-12 (To 1000 mcg) Injection Unknown 11/29/2008 Therapeutic, Prophylactic Or Diagnostic Injection Subq/Im Injection Unknown 11/29/2008 Vitamin B-12 (To 1000 mcg) Injection Unknown 07/29/2008 Vitamin B-12 (To 1000 mcg) Injection Unknown 06/22/2008 Vitamin B-12 (To 1000 mcg) Injection Unknown 05/26/2008 Vitamin B-12 (To 1000 mcg) Injection Unknown 04/27/2008 Vitamin B-12 (To 1000 mcg) Injection Unknown 03/30/2008 Vitamin B-12 (To 1000 mcg) Injection Unknown 02/24/2008 Vitamin B-12 (To 1000 mcg) Injection Unknown 01/27/2008 Vitamin B-12 (To 1000 mcg) Injection Unknown 11/28/2007 Vitamin B-12 (To 1000 mcg) Injection Unknown 10/31/2007 Vitamin B-12 (To 1000 mcg) Injection Unknown 10/02/2007 Vitamin B-12 (To 1000 mcg) Injection Unknown 09/04/2007 Vitamin B-12 (To 1000 mcg) Injection Unknown 08/05/2007 Vitamin B-12 (To 1000 mcg) Injection Unknown 07/08/2007 Vitamin B-12 (To 1000 mcg) Injection Unknown 06/09/2007 Vitamin B-12 (To 1000 mcg) Injection Unknown 05/09/2007 Vitamin B-12 (To 1000 mcg) Injection Unknown 04/07/2007 Vitamin B-12 (To 1000 mcg) Injection Unknown 03/13/2007 Vitamin B-12 (To 1000 mcg) Injection Unknown 02/17/2007 Vitamin B-12 (To 1000 mcg) Injection Unknown 01/14/2007 Vitamin B-12 (To 1000 mcg) Injection Unknown 12/23/2006 Vitamin B-12 (To 1000 mcg) Injection Unknown 11/22/2006 Immunizations CPT Code Status Date Vaccine Lot # [id number] Given 07/29/2018 Pneumococcal (Pneumovax 23) [id number] 71064 Given 07/09/2018 Influenza Vaccin e, High Dose > 65 Years Old (Includes Medicare) 80746 Given 07/10/2017 Influenza Vaccin e, High Dose > 65 Years Old (Includes Medicare) [id number] Given 03/14/2016 Prevnar 13 [id number] 92456 Given 07/06/2015 Influenza Vaccin e, High Dose > 65 Years Old (Includes Medicare) 14701 Given 06/06/2011 Influenza Virus Vaccine, Spl [place] [address] Given 05/23/2010 Influenza Virus Vaccine, Spl [place] [address] Given 05/26/2008 Influenza Virus Vaccine, Spl [place] [address] Given 06/09/2007 Influenza Virus Vaccine, Spl it [place] [address] Given 04/23/2007 Zostavax [id number] Given 06/07/2006 Influenza Virus Vaccine, Spl it 3 Yrs AB Vital Signs Date Vital Result Comment 06/13/2020 1:01pm Weight 179.00 lb BP Systolic 146 mmHg BP Diastolic 70 mmHg Heart Rate 70 /min Body Temperature 98.2 F Body Temperature 36.8 C O2 % BldC Oximetry 98 % 03/31/2020 11:15am Height 67.00 inches 5'7" Weight 171.00 lb BMI (Body Mass Index) 26.8 kg/m2 BP Systolic 230 mmHg Manual taken in both arms, same number x3 BP Diastolic 100 mmHg Manual taken in both arms, same number x3 Heart Rate 87 /min Body Temperature 97.6 F Body Temperature 36.4 C O2 % BldC Oximetry 96 % Results Test Acquired Date Facility Test Result H/L Range Note Cardiac Marker Panel 07/26/2020 [facility] enter [address] [place] [address] [phone] CPK Creatine Phosphokinase 167 U/L Normal 39-30 8 CK-MB Value Mass 5.2 NG/ML High <3.6 MB/CK Relative Index 3.11 Normal < Or =4 1 Troponin I 0.04 NG/ML Significant change down < 0.10 2 CBC With Differential 07/26/2020 [facility] [address] [place], [place] [id number] [phone] White Blood Count 4.8 10 Normal 4.0-10.0 Red Blood Count 3.83 10 Low 4.30-6.10 Hemoglobin 11.5 g/dL Low 13.5-17.5 Hematocrit 36.0 % Low 42.0-52.0 Mean Corpuscular Volume 94.0 fl Normal 80.0-96.0 Mean Corpuscular Hemoglobin 30.0 pg Normal 27.0-33.0 Mean Corpuscular HGB Conc 31.9 g/dL Low 32.0-36.5 Red Cell Distribution Width 14.1 % Normal 11.5-14.5 Platelet Count, Automated 170 10 Normal 150-450 Neutrophils % 72.5 % High 36.0-66.0 Lymph % 17.6 % Low 24.0-44.0 [place] % 6.6 % High 0.0-5.0 Eos % 2.7 % Normal 0.0-3.0 Baso % 0.4 % Normal 0.0-1.0 Immature Granulocyte % 0.2 % Normal 0-3.0 Nucleated Red Blood Cell % 0.0 % Normal 0-0 Neutrophils # 3.5 10 Normal 1.5-8.5 Lymph # 0.9 10 Low 1.5-5.0 [place] # 0.3 10 Normal 0.0-0.8 Eos # 0.1 10 Normal 0.0-0.5 Baso # 0.0 10 Normal 0.0-0.2 Prothrombin Time/Inr 07/26/2020 [facility] enter [address] [place] [address] [phone] Prothrombin Time 13.0 seconds Normal 12.5-14.3 Inr 0.96 Normal 3 Laboratory test finding 07/26/2020 [facility] [address] [place] [address] [phone] Partial Thromboplastin Time 26.5 seconds Normal 24 .2-38.5 Cardiac Marker Panel 07/26/2020 [facility] enter [address] [place] [address] [phone] CPK Creatine Phosphokinase 165 U/L Normal 39-30 8 CK-MB Value Mass 5.2 NG/ML High <3.6 MB/CK Relative Index 3.15 Normal < Or =4 4 Troponin I 0.03 NG/ML Normal < 0.10 5 Liver Profile 07/26/2020 [facility] nter [address] [place] [address] [phone] Ast/Sgot 27 U/L Normal 7-37 Alt/SGPT 29 U/L Normal 12-78 Alkaline Phosphatase 88 U/L Normal 45-117 Bilirubin,Total 0.3 mg/dL Normal 0.2-1.0 Bilirubin,Direct 0.1 mg/dL Normal 0.0-0.2 Total Protein 6.0 GM/DL Low 6.4-8.2 Albumin 2.9 GM/DL Low 3.2-5.2 Albumin/Globulin Ratio 0.9 Normal Basic Metabolic Profile 07/26/[address] [address] [phone] Glucose, Fasting 110 mg/dL High 70-100 Blood Urea Nitrogen 61 mg/dL High 7-18 Creatinine For GFR 3.31 mg/dL High 0.70-1.30 Glomerular Filtration Rate 18.9 Low >35 6 Sodium Level 137 mEq/L Normal 136-145 Potassium Serum 4.7 mEq/L Normal 3.5-5.1 Chloride Level 106 mEq/L Normal 98-107 Carbon Dioxide Level 28 mEq/L Normal 21-32 Anion Gap 3 mEq/L Low 8-16 Calcium Level 8.2 mg/dL Low 8.8-10.2 Laboratory test finding 07/26/[address] [address] [phone] NT-Pro BNP 2213 pg/mL High <450 Lipase 158 U/L Normal 73-393 Thyroid Stimulating Hormone 5.180 uIU/ML High 0.358-3.740 CBC With Differential 06/16/[address] [address] [phone] White Blood Count 4.7 10 Normal 4.0-10.0 Red Blood Count 3.89 10 Low 4.30-6.10 Hemoglobin 11.6 g/dL Low 13.5-17.5 Hematocrit 37.7 % Low 42.0-52.0 Mean Corpuscular Volume 96.9 fl High 80.0-96.0 Mean Corpuscular Hemoglobin 29.8 pg Normal 27.0-33.0 Mean Corpuscular HGB Conc 30.8 g/dL Low 32.0-36.5 Red Cell Distribution Width 13.0 % Normal 11.5-14.5 Platelet Count, Automated 149 10 Low 150-450 Neutrophils % 68.6 % High 36.0-66.0 Lymph % 19.9 % Low 24.0-44.0 [place] % 6.4 % High 0.0-5.0 Eos % 4.1 % High 0.0-3.0 Baso % 0.4 % Normal 0.0-1.0 Immature Granulocyte % 0.6 % Normal 0-3.0 Nucleated Red Blood Cell % 0.0 % Normal 0-0 Neutrophils # 3.2 10 Normal 1.5-8.5 Lymph # 0.9 10 Low 1.5-5.0 [place] # 0.3 10 Normal 0.0-0.8 Eos # 0.2 10 Normal 0.0-0.5 Baso # 0.0 10 Normal 0.0-0.2 Comprehensive Metabolic Profil 06/16/[address] [id number] [phone] Glucose, Fasting 92 mg/dL Normal 70-100 Blood Urea Nitrogen 56 mg/dL High 7-18 Creatinine For GFR 3.05 mg/dL High 0.70-1.30 Glomerular Filtration Rate 20.8 Low >35 7 Sodium Level 138 mEq/L Normal 136-145 Potassium Serum 4.4 mEq/L Normal 3.5-5.1 Chloride Level 102 mEq/L Normal 98-107 Carbon Dioxide Level 30 mEq/L Normal 21-32 Anion Gap 6 mEq/L Low 8-16 Calcium Level 8.5 mg/dL Low 8.8-10.2 Ast/Sgot 22 U/L Normal 7-37 Alt/SGPT 26 U/L Normal 12-78 Alkaline Phosphatase 80 U/L Normal 45-117 Bilirubin,Total 0.4 mg/dL Normal 0.2-1.0 Total Protein 6.5 GM/DL Normal 6.4-8.2 Albumin 3.2 GM/DL Normal 3.2-5.2 Albumin/Globulin Ratio 1.0 Normal Laboratory test finding 06/16/[address] [id number] [phone] NT-Pro BNP 6362 pg/mL High <450 Basic Metabolic Profile 06/04/2020 [place] [address] [place] [address] [phone] Glucose, Fasting 91 mg/dL Normal 70-100 Blood Urea Nitrogen 41 mg/dL High 7-18 Creatinine For GFR 2.97 mg/dL High 0.70-1.30 Glomerular Filtration Rate 21.4 Low >35 8 Sodium Level 137 mEq/L Normal 136-145 Potassium Serum 4.4 mEq/L Normal 3.5-5.1 Chloride Level 100 mEq/L Normal 98-107 Carbon Dioxide Level 32 mEq/L Normal 21-32 Anion Gap 5 mEq/L Low 8-16 Calcium Level 8.0 mg/dL Low 8.8-10.2 CBC With Differential 04/01/2020 [facility] [address] [place] [address] [phone] White Blood Count 4.4 10 Normal 4.0-10.0 Red Blood Count 3.78 10 Low 4.30-6.10 Hemoglobin 11.6 g/dL Low 13.5-17.5 Hematocrit 36.1 % Low 42.0-52.0 Mean Corpuscular Volume 95.5 fl Normal 80.0-96.0 Mean Corpuscular Hemoglobin 30.7 pg Normal 27.0-33.0 Mean Corpuscular HGB Conc 32.1 g/dL Normal 32.0-36.5 Red Cell Distribution Width 13.5 % Normal 11.5-14.5 Platelet Count, Automated 156 10 Normal 150-450 Neutrophils % 74.0 % High 36.0-66.0 Lymph % 16.2 % Low 24.0-44.0 [place] % 6.6 % High 0.0-5.0 Eos % 2.7 % Normal 0.0-3.0 Baso % 0.5 % Normal 0.0-1.0 Immature Granulocyte % 0.0 % Normal 0-3.0 Nucleated Red Blood Cell % 0.0 % Normal 0-0 Neutrophils # 3.2 10 Normal 1.5-8.5 Lymph # 0.7 10 Low 1.5-5.0 [place] # 0.3 10 Normal 0.0-0.8 Eos # 0.1 10 Normal 0.0-0.5 Baso # 0.0 10 Normal 0.0-0.2 Hemoglobin A1c 04/01/2020 [facility] nter [address] [place] [address] [phone] Hemoglobin A1c 5.8 % Normal 9 Estimated Average Glucose 120 mg/dL High 60-110 1 DIAGNOSIS CRITERIA MMB ng/ml Relative Index (RI) NON-AMI < or = 5 N/A WALTON ZONE > 5 < or = 4 AMI > 5 > 4 2 Troponin I Reference Interva l for Siemens [place] LOCI: 99th Percentile= 0.00-0.045 ng/ml Risk Stratification: <= 0.10 ng/ml Decreased Risk for Adverse Clinical Events. 0.10-1.50 ng/ml Increased Risk for Adv erse Clinical Events. Evaluation of additional criterion and/or repeat testing in 2-6 hours is suggested to rule out myocardial damage. >= 1.50 ng/ml Indicative of Myocardial Injury. 3 THERAPUTIC HUMAN INR VALUES INDICATIONS NORMAL RANGES PROPHYLAXIS/TREATMENT OF: VENOUS THROMBOSIS 2.0-3.0 PULMONARY EMBOLISM 2.0-3.0 PREVENTION OF SYSTEMIC EMBOLISM FROM: TISSUE HEART VALVES 2.0-3.0 ACUTE MYOCARDIAL INFARCTION 2.0-3.0 VALVULAR HEART DISEASE 2.0-3.0 ATRIAL FIBRILLATION 2.0-3.0 MECHANICAL VALVES(HIGH RISK) 2.5-3.5 RECURRENT MYOCARDIAL INFARCTION 2.5-3.5 4 DIAGNOSIS CRITERIA MMB ng/ml Relative Index (RI) NON-AMI < or = 5 N/A [place] ZONE > 5 < or = 4 AMI > 5 > 4 5 Troponin I Reference Interva l for [facility] LOCI: 99th Percentile= 0.00-0.045 ng/ml Risk Stratification: <= 0.10 ng/ml Decreased Risk for Adverse Clinical Events. 0.10-1.50 ng/ml Increased Risk for Adv erse Clinical Events. Evaluation of additional criterion and/or repeat testing in 2-6 hours is suggested to rule out myocardial damage. >= 1.50 ng/ml Indicative of Myocardial Injury. 6 Units are mL/min/1.73 m2 Chronic Kidney Disease Staging per NKF: Stage I & II GFR >=60 Normal to Mildly Decreased Stage III GFR 30-59 Moderately Decreased Stage IV GFR 15-29 Severely Decreased Stage V GFR <15 Very Little GFR Left ESRD GFR <15 on CCNA 7 Units are mL/min/1.73 m2 Chronic Kidney Disease Staging per NKF: Stage I & II GFR >=60 Normal to Mildly Decreased Stage III GFR 30-59 Moderately Decreased Stage IV GFR 15-29 Severely Decreased Stage V GFR <15 Very Little GFR Left ESRD GFR <15 on CCNA 8 Units are mL/min/1.73 m2 Chronic Kidney Disease Staging per NKF: Stage I & II GFR >=60 Normal to Mildly Decreased Stage III GFR 30-59 Moderately Decreased Stage IV GFR 15-29 Severely Decreased Stage V GFR <15 Very Little GFR Left ESRD GFR <15 on CCNA 9 REFERENCE RANGES: <=5.6% NORMAL 5.7-6.4% SUGGESTS IMPAIRED GLUCOSE META BOLISM/PREDIABETIC >= 6.5% ABNORMAL Procedures Date Code Description Status 03/31/2020 33995 Electrocardiogram Complete Compl eted Medical Devices Description No Information Available Encounters Type Date Location Provider Dx Diagnosis Office Visit 06/13[facility]2020 [facility] Chronic diastolic (congestive) heart georgina lure I13.0 Hyp hrt & chr kdny dis w hrt fail and stg 1-4/unsp chr kdny E11.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 N18.9 Chronic kidney disease, unsp ecified Office Visit 03/31/2020 11:00a CMP Primary Care AT [facility] Frantz Fraire MD 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 E11.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 N18.3 Chronic kidney disease, stag e 3 (moderate) E78.5 Hyperlipidemia, unspecified D51.9 Vitamin B12 deficiency anemi a, unspecified E55.9 Vitamin D deficiency, unspec ified Z13.6 Encounter for screening for cardiovascular disorders Z79.84 long-term (current) use of o ral hypoglycemic drugs Assessments Date Code Description Provider 06/13/2020 I50.32 Chronic diastolic (congestive) h eart failure Frantz Woody MD 06/13/2020 I13.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 and stage 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, or unspecified chronic kidney disease Frantz Woody MD 06/13/2020 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 Frantz Woody MD 06/13/2020 N18.9 Chronic kidney disease, unspecif ied Frantz Woody MD 03/31/2020 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, or unspecified chronic kidney disease Frantz Woody MD 03/31/2020 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 Frantz Woody MD 03/31/2020 N18.3 Chronic kidney disease, stage 3 (moderate) Frantz Woody MD 03/31/2020 E78.5 Hyperlipidemia, unspecified Frantz Woody MD 03/31/2020 D51.9 Vitamin B12 deficiency anemia, u nspecified Frantz Woody MD 03/31/2020 E55.9 Vitamin D deficiency, unspecifie d Frantz Woody MD 03/31/2020 Z13.6 Encounter for screening for card iovascular disorders Frantz Woody MD 03/31/2020 Z79.84 long term care pharmacist (current) use of oral hypoglycemic drugs Frantz Woody MD Plan of Treatment Future Appointment(s):* 10/06/2020 11:20 am - Frantz Woody MD at [facility] Primary Care AT [place] 06/13/2020 - Frantz Woody MD* I50.32 Chronic diastolic (congestive) heart failure * Follow up:* As scheduled * I13.0 Hypertensive heart and chronic kidney disease with heart failure and stage 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, or unspecified chronic kidney disease * E11.22 Type 2 diabetes mellitus with diabetic chronic kidney diseas * N18.9 Chronic kidney disease, unspecified Functional Status Description No Information Available Mental Status Description No Information Available Referrals Description No Information Available
--- OUTSIDE RECORDS SUMMARY | 2020-09-24 13:00 | CCD ---
Continuity of Care Document (CCD) Created on: 07/03/2020 Jose Ramon Barrientos External Reference #: [id number] : [id number] Sex: Male Author Author Jose Ramon WOODY MD Organization Unknown Address [address] [place] [address], [address] [place] [address] Phone [phone] Care Team Providers Care Nozzle Operator Name Role Phone Frantz Woody MD AUTM [phone] Arnaldo Flores MD AUTM Unavailable Dimtriy Umaña MD AUTM [phone] Problems Active Problems Provider Date Vertigo Onset: [...] CPT Code Status Date Vaccine Lot # [id number] Given 07/29/2018 Pneumococcal (Pneumovax 23) [id number] 45861 Given 07/09/2018 Influenza Vaccin e, High Dose > 65 Years Old (Includes Medicare) 45560 Given 07/10/2017 Influenza Vaccin e, High Dose > 65 Years Old (Includes Medicare) [id number] 97077 Given 03/14/2016 Prevnar 13 [id number] 12459 Given 07/06/2015 Influenza Vaccin e, High Dose > 65 Years Old (Includes Medicare) 73626 Given 06/06/2011 Influenza Virus Vaccine, Spl [place] [address] [place] [address] Given 05/23/2010 Influenza Virus Vaccine, Spl [place] [address] Given 05/26/2008 Influenza Virus Vaccine, Spl [place] [address] Given 06/09/2007 Influenza Virus Vaccine, Spl it [address] [place] [address] Given 04/23/2007 Zostavax 73862 Given 06/07/2006 Influenza Virus Vaccine, Spl it [...] Date Facility Test Result H/L Range Note CBC With Differential 06/16/2020 [place] [id number] [phone] White Blood Count 4.7 10 Normal 4.0-10.0 [...] 36.0-66.0 Lymph % 19.9 % Low 24.0-44.0 [place] % 6.4 % High 0.0-5.0 Eos % 4.1 % High 0.0-3.0 Baso % 0.4 % Normal 0.0-1.0 Immature Granulocyte % 0.6 % Normal 0-3.0 Nucleated Red Blood Cell % 0.0 % Normal 0-0 Neutrophils # 3.2 10 Normal 1.5-8.5 Lymph # 0.9 10 Low 1.5-5.0 [place] # 0.3 10 Normal 0.0-0.8 Eos # 0.2 10 Normal 0.0-0.5 Baso # 0.0 10 Normal 0.0-0.2 Comprehensive Metabolic Profil 06/16/[address] [id number] [phone] Glucose, Fasting 92 mg/dL Normal 70-100 Blood Urea Nitrogen 56 mg/dL High 7-18 Creatinine For GFR 3.05 mg/dL High 0.70-1.30 Glomerular Filtration Rate 20.8 Low >35 1 Sodium Level 138 mEq/L Normal 136-145 Potassium [...] Ratio 1.0 Normal Laboratory test finding 06/16/[address] [id number] [phone] NT-Pro BNP 6362 pg/mL High <450 Basic Metabolic Profile 06/04/[address] [id number] [phone] Glucose, Fasting 91 mg/dL Normal 70-100 Blood Urea Nitrogen 41 mg/dL High 7-18 Creatinine For GFR 2.97 mg/dL High 0.70-1.30 Glomerular Filtration Rate 21.4 Low >35 2 Sodium Level 137 mEq/L Normal 136-145 Potassium Serum 4.4 mEq/L Normal 3.5-5.1 Chloride Level 100 mEq/L Normal 98-107 Carbon Dioxide Level 32 mEq/L Normal 21-32 Anion Gap 5 mEq/L Low 8-16 Calcium Level 8.0 mg/dL Low 8.8-10.2 CBC With Differential 04/01/2020 [facility] [place] [address] [place] [address] [phone] White Blood Count 4.4 10 Normal 4.0-10.0 [...] 36.0-66.0 Lymph % 16.2 % Low 24.0-44.0 [place] % 6.6 % High 0.0-5.0 Eos % 2.7 % Normal 0.0-3.0 Baso % 0.5 % Normal 0.0-1.0 Immature Granulocyte % 0.0 % Normal 0-3.0 Nucleated Red Blood Cell % 0.0 % Normal 0-0 Neutrophils # 3.2 10 Normal 1.5-8.5 Lymph # 0.7 10 Low 1.5-5.0 [place] # 0.3 10 Normal 0.0-0.8 Eos # 0.1 10 Normal 0.0-0.5 Baso # 0.0 10 Normal 0.0-0.2 Hemoglobin A1c 04/01/2020 [facility] nter [address] [place] [address] [phone] Hemoglobin A1c 5.8 % Normal 3 Estimated Average Glucose 120 mg/dL High 60-110 1 Units are mL/min/1.73 m2 Chronic Kidney Disease Staging per NKF: Stage I & II GFR >=60 Normal to Mildly Decreased Stage III GFR 30-59 Moderately Decreased Stage IV GFR 15-29 Severely Decreased Stage V GFR <15 Very Little GFR Left ESRD GFR <15 on HYPERBARIC NURSE 2 Units are mL/min/1.73 m2 Chronic Kidney Disease Staging per NKF: Stage I & II GFR >=60 Normal to Mildly Decreased Stage III GFR 30-59 Moderately Decreased Stage IV GFR 15-29 Severely Decreased Stage V GFR <15 Very Little GFR Left ESRD GFR <15 on HYPERBARIC NURSE 3 REFERENCE RANGES: <=5.6% NORMAL 5.7-6.4% SUGGESTS IMPAIRED GLUCOSE META BOLISM/PREDIABETIC >= 6.5% ABNORMAL Procedures Date Code Description Status 03/31/2020 45631 Electrocardiogram Complete Compl eted Medical Devices Description No Information Available Encounters Type Date Location Provider Dx Diagnosis Office Visit 06/13/2020 1:20p CMP Primary Care AT [place] Franzt Fraire MD I50.32 Chronic diastolic (congestive) heart georgina lure I13.0 Hyp hrt & chr kdny dis w hrt fail and stg 1-4/unsp chr kdny E11.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 N18.9 Chronic kidney disease, unsp ecified Office Visit 03/31/2020 11:00a CMP Primary Care AT [place] Frantz Fraire MD 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 E11.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 N18.3 Chronic kidney disease, stag e 3 (moderate) E78.5 Hyperlipidemia, unspecified D51.9 Vitamin B12 deficiency anemi a, unspecified E55.9 Vitamin D deficiency, unspec ified Z13.6 Encounter for screening for cardiovascular disorders Z79.84 claims vice president (current) use of o ral hypoglycemic drugs Office Visit 01/06/2020 2:20p [facility] Primary Care AT [place] Frantz Fraire MD E11.22 Type 2 diabetes mellitus w diabetic telephone collector jazmine kidney disease E78.5 Hyperlipidemia, unspecified D51.9 Vitamin B12 deficiency anemi a, unspecified N18.3 Chronic kidney disease, stag e 3 (moderate) N40.0 Benign prostatic hyperplasia without lower urinry tract symp Assessments Date Code Description Provider 06/13/2020 I50.32 Chronic diastolic (congestive) h eart failure Frantz Woody MD 06/13/2020 I13.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 and stage 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, or unspecified chronic kidney disease Frantz Wooyd MD 06/13/2020 E11.22 Type 2 diabetes mellitus [...] iovascular disorders Frantz Woody MD 03/31/2020 Z79.84 alf (current) use of oral hypoglycemic drugs Frantz Woody MD 01/06/2020 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 Frantz Woody MD 01/06/2020 E78.5 Hyperlipidemia, unspecified Frantz Woody MD 01/06/2020 D51.9 Vitamin B12 deficiency anemia, u nspecified Frantz Woody MD 01/06/2020 N18.3 Chronic kidney disease, stage 3 (moderate) Frantz Woody MD 01/06/2020 N40.0 Benign prostatic hyperplasia wit hout lower urinary tract sym Frantz Woody MD Plan of Treatment Future Appointment(s):* 10/06/2020 11:20 am - Frantz Woody MD at [facility] Primary Care AT [place] 06/13/2020 - Frantz Woody MD* I50.32 Chronic [...]
--- OUTSIDE RECORDS SUMMARY | 2020-09-24 13:00 | CCD | Continuity of Care Document ---
Author Author Jose Ramon WOODY MD Organization Unknown Address [address] [place] [address], [address] [place] [address] Phone [phone] Care Team Providers Care Skein Spooler Name Role Phone Frantz Woody MD AUTM [phone] Arnaldo Flores MD AUTM Unavailable Dmitriy Umaña MD AUTM [phone] Problems Active Problems Provider Date Vertigo Onset: [...] CPT Code Status Date Vaccine Lot # [id number] Given 07/29/2018 Pneumococcal (Pneumovax 23) [id number] 06809 Given 07/09/2018 Influenza Vaccin e, High Dose > 65 Years Old (Includes Medicare) 12590 Given 07/10/2017 Influenza Vaccin e, High Dose > 65 Years Old (Includes Medicare) [id number] 08534 Given 03/14/2016 Prevnar 13 [id number] 09827 Given 07/06/2015 Influenza Vaccin e, High Dose > 65 Years Old (Includes Medicare) 92746 Given 06/06/2011 Influenza Virus Vaccine, Spl it 3 [place] [id number] Given 05/23/2010 Influenza Virus Vaccine, Spl it 3 [place] [id number] Given 05/26/2008 Influenza Virus Vaccine, Spl it 3 [place] [address] Given 06/09/2007 Influenza Virus Vaccine, Spl it 3 [place] [address] Given 04/23/2007 Zostavax [id number] Given 06/07/2006 Influenza Virus Vaccine, Spl it [...] H/L Range Note Cardiac Marker Panel 07/26/2020 [facility] [address] [place] [address] [phone] CPK Creatine Phosphokinase 167 U/L Normal 39-30 8 CK-MB Value Mass 5.2 NG/ML High <3.6 MB/CK Relative Index 3.11 Normal < Or =4 1 Troponin I 0.04 NG/ML Significant change down < 0.10 2 CBC With Differential 07/26/2020 [facility] [address] [place], [place] [id number] [phone] White Blood Count 4.8 10 Normal 4.0-10.0 [...] 36.0-66.0 Lymph % 17.6 % Low 24.0-44.0 Crowley % 6.6 % High 0.0-5.0 Eos % 2.7 % Normal 0.0-3.0 Baso % 0.4 % Normal 0.0-1.0 Immature Granulocyte % 0.2 % Normal 0-3.0 Nucleated Red Blood Cell % 0.0 % Normal 0-0 Neutrophils # 3.5 10 Normal 1.5-8.5 Lymph # 0.9 10 Low 1.5-5.0 Crowley # 0.3 10 Normal 0.0-0.8 Eos # 0.1 10 Normal 0.0-0.5 Baso # 0.0 10 Normal 0.0-0.2 Prothrombin Time/Inr 07/26/2020 [facility] enter [address] [place] [address] [phone] Prothrombin Time 13.0 seconds Normal 12.5-14.3 Inr 0.96 Normal 3 Laboratory test finding 07/26/2020 [facility] [address] [place] [address] [phone] Partial Thromboplastin Time 26.5 seconds Normal 24 .2-38.5 Cardiac Marker Panel 07/26/2020 [facility] enter [address] [place] [address] [phone] CPK Creatine Phosphokinase 165 U/L Normal 39-30 8 CK-MB Value Mass 5.2 NG/ML High <3.6 MB/CK Relative Index 3.15 Normal < Or =4 4 Troponin I 0.03 NG/ML Normal < 0.10 5 Liver Profile 07/26/2020 [facility]ter [address] [place] [address] [phone] Ast/Sgot 27 U/L Normal 7-37 Alt/SGPT 29 U/L Normal 12-78 Alkaline Phosphatase 88 U/L Normal 45-117 Bilirubin,Total 0.3 mg/dL Normal 0.2-1.0 Bilirubin,Direct 0.1 mg/dL Normal 0.0-0.2 Total Protein 6.0 GM/DL Low 6.4-8.2 Albumin 2.9 GM/DL Low 3.2-5.2 Albumin/Globulin Ratio 0.9 Normal Basic Metabolic Profile 07/26/[address] [address] [phone] Glucose, Fasting 110 mg/dL High 70-100 Blood [...] mg/dL Low 8.8-10.2 Laboratory test finding 07/26/[address] [address] [phone] NT-Pro BNP 2213 pg/mL High <450 Lipase 158 U/L Normal 73-393 Thyroid Stimulating Hormone 5.180 uIU/ML High 0.358-3.740 CBC With Differential 06/16/[address] [address] [phone] White Blood Count 4.7 10 Normal 4.0-10.0 [...] 36.0-66.0 Lymph % 19.9 % Low 24.0-44.0 Crowley % 6.4 % High 0.0-5.0 Eos % 4.1 % High 0.0-3.0 Baso % 0.4 % Normal 0.0-1.0 Immature Granulocyte % 0.6 % Normal 0-3.0 Nucleated Red Blood Cell % 0.0 % Normal 0-0 Neutrophils # 3.2 10 Normal 1.5-8.5 Lymph # 0.9 10 Low 1.5-5.0 Crowley # 0.3 10 Normal 0.0-0.8 Eos # 0.2 10 Normal 0.0-0.5 Baso # 0.0 10 Normal 0.0-0.2 Comprehensive Metabolic Profil 06/16/[address] [id number] [phone] Glucose, Fasting 92 mg/dL Normal 70-100 Blood [...] Ratio 1.0 Normal Laboratory test finding 06/16/[address] [id number] [phone] NT-Pro BNP 6362 pg/mL High <450 Basic Metabolic Profile 06/04/2020 [address] [place] [address] [phone] Glucose, Fasting 91 mg/dL Normal 70-100 Blood [...] mg/dL Low 8.8-10.2 CBC With Differential 04/01/2020 [facility] [address] [place] [address] [phone] White Blood Count 4.4 10 Normal 4.0-10.0 [...] 36.0-66.0 Lymph % 16.2 % Low 24.0-44.0 Crowley % 6.6 % High 0.0-5.0 Eos % 2.7 % Normal 0.0-3.0 Baso % 0.5 % Normal 0.0-1.0 Immature Granulocyte % 0.0 % Normal 0-3.0 Nucleated Red Blood Cell % 0.0 % Normal 0-0 Neutrophils # 3.2 10 Normal 1.5-8.5 Lymph # 0.7 10 Low 1.5-5.0 Crowley # 0.3 10 Normal 0.0-0.8 Eos # 0.1 10 Normal 0.0-0.5 Baso # 0.0 10 Normal 0.0-0.2 Hemoglobin A1c 04/01/2020 [facility] [address]ter [address] [place] [address] [phone] Hemoglobin A1c 5.8 % Normal 9 Estimated Average Glucose 120 mg/dL High 60-110 1 DIAGNOSIS CRITERIA MMB ng/ml Relative Index (RI) NON-AMI < or = 5 N/A [place] ZONE > 5 < or = 4 AMI > 5 > 4 2 Troponin I Reference Interva l for Siemens Arjay LOCI: 99th Percentile= 0.00-0.045 ng/ml Risk Stratification: [...] 5 Troponin I Reference Interva l for Simple Star LOCI: 99th Percentile= 0.00-0.045 ng/ml Risk Stratification: [...] Little GFR Left ESRD GFR <15 on DIE STAMPING PRESS OPERATOR 7 Units are mL/min/1.73 m2 Chronic Kidney Disease Staging per NKF: Stage I & II GFR >=60 Normal to Mildly Decreased Stage III GFR 30-59 Moderately Decreased Stage IV GFR 15-29 Severely Decreased Stage V GFR <15 Very Little GFR Left ESRD GFR <15 on DIE STAMPING PRESS OPERATOR 8 Units are mL/min/1.73 m2 Chronic Kidney Disease Staging per NKF: Stage I & II GFR >=60 Normal to Mildly Decreased Stage III GFR 30-59 Moderately Decreased Stage IV GFR 15-29 Severely Decreased Stage V GFR <15 Very Little GFR Left ESRD GFR <15 on DIE STAMPING PRESS OPERATOR 9 REFERENCE RANGES: <=5.6% NORMAL 5.7-6.4% SUGGESTS IMPAIRED GLUCOSE META BOLISM/PREDIABETIC >= 6.5% ABNORMAL Procedures Date Code Description Status 03/31/2020 73295 Electrocardiogram Complete Compl eted Medical Devices Description No Information Available Encounters Type Date Location Provider Dx Diagnosis Office [facility]2020 [facility] 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
--- OUTSIDE RECORDS SUMMARY | 2020-09-24 13:01 | CCD ---
Author Author [facility] Organization [facility] Address Unknown Phone Unavailable Care Team Providers Care Stock Letterer Name Role Phone Scarlet Miranda MD Unavailable Unavailable Scarlet Miranda MD Unavailable Unavailable Scarlet Miranda MD Unavailable Unavailable Scarlet Miranda MD Unavailable Unavailable Scarlet Miranda MD Unavailable Unavailable Scarlet Miranda MD Unavailable Unavailable Scarlet Miranda MD Unavailable Unavailable Scarlet Miranda MD Unavailable Unavailable Scarlet Miranda MD Unavailable Unavailable Scarlet Miranda MD Unavailable Unavailable Scarlet Miranda MD Unavailable Unavailable Scarlet Miranda MD Unavailable Unavailable Scarlet Miranda MD Unavailable Unavailable Scarlet Miranda MD Unavailable Unavailable Scarlet Miranda MD Unavailable Unavailable Scarlet Miranda MD Unavailable Unavailable Scarlet Miranda MD Unavailable Unavailable Scarlet Miranda MD Unavailable Unavailable Scarlet Miranda MD Unavailable Unavailable Scarlet Miranda MD Unavailable Unavailable Scarlet Mirnada MD Unavailable Unavailable Scarlet Miranda MD Unavailable Unavailable Scarlet Miranda MD Unavailable Unavailable Scarlet Miranda MD Unavailable Unavailable Scarlet Miranda MD Unavailable Unavailable Scarlet Miranda MD Unavailable Unavailable Scarlet Miranda MD Unavailable Unavailable Scarlet Miranda MD Unavailable Unavailable Scarlet Miranda MD Unavailable Unavailable Scarlet Miranda MD Unavailable Unavailable SleScarlet alarcon MD Unavailable Unavailable BitakaAllantech Unavailable Unavailable Scarlet Miranda MD Unavailable Unavailable SleAllan alarcontech Unavailable Unavailable Scarlet Miranda MD Unavailable Unavailable Scarlet Miranda MD Unavailable Unavailable SleScarlet alarcon MD Unavailable Unavailable SleAllan alarcontech Unavailable Unavailable Scarlet Miranda MD Unavailable Unavailable Scarlet Miranda MD Unavailable Unavailable Scarlet Miranda MD Unavailable Unavailable Allan Mirandatech Unavailable Unavailable Allan Mirandatech Unavailable Unavailable BitakaRicojtech Unavailable Unavailable BitakaAllantech Unavailable Unavailable Allan Mirandatech Unavailable Unavailable Allan Mirandatech Unavailable Unavailable Allan Mirandatech Unavailable Unavailable Allan Mirandatech Unavailable Unavailable Allan Mirandatech Unavailable Unavailable Scarlet Miranda MD Unavailable Unavailable Scarlet Miranda MD Unavailable Unavailable Scarlet Miranda MD Unavailable Unavailable Allan Mirandatech Unavailable Unavailable Scarlet Miranda MD Unavailable Unavailable Scarlet Miranda MD Unavailable Unavailable Scarlet Miranda MD Unavailable Unavailable Scarlet Miranda MD Unavailable Unavailable Fons, M Alma BRAIDER SETTER Unavailable Unavailable Fons, M Alma BRAIDER SETTER Unavailable Unavailable Fons, M Alma BRAIDER SETTER Unavailable Unavailable Fons, M Alma BRAIDER SETTER Unavailable Unavailable Fons, M Alma BRAIDER SETTER Unavailable Unavailable Fons, M Alma BRAIDER SETTER Unavailable Unavailable Fons, M Alma BRAIDER SETTER Unavailable Unavailable Fons, M Alma BRAIDER SETTER Unavailable Unavailable Fons, M Alma BRAIDER SETTER Unavailable Unavailable Fons, M Alma BRAIDER SETTER Unavailable Unavailable Fons, M Alma BRAIDER SETTER Unavailable Unavailable Fons, M Alma BRAIDER SETTER Unavailable Unavailable Fons, M Alma BRAIDER SETTER Unavailable Unavailable Fons, M Alma BRAIDER SETTER Unavailable Unavailable Fons, M Alma BRAIDER SETTER Unavailable Unavailable Fons, M Alma BRAIDER SETTER Unavailable Unavailable Fons, M Alma BRAIDER SETTER Unavailable Unavailable Fons, M Alma BRAIDER SETTER Unavailable Unavailable Fons, M Alma BRAIDER SETTER Unavailable Unavailable Fons, M Alma BRAIDER SETTER Unavailable Unavailable Fons, M Alma BRAIDER SETTER Unavailable Unavailable Fons, M Alma BRAIDER SETTER Unavailable Unavailable Fons, M Alma BRAIDER SETTER Unavailable Unavailable Fons, M Alma BRAIDER SETTER Unavailable Unavailable Fons, M Alma BRAIDER SETTER Unavailable Unavailable Fons, M Alma BRAIDER SETTER Unavailable Unavailable Fons, M Alma BRAIDER SETTER Unavailable Unavailable Fons, M Alma BRAIDER SETTER Unavailable Unavailable Fons, M Alma BRAIDER SETTER Unavailable Unavailable Fons, M Alma BRAIDER SETTER Unavailable Unavailable Fons, M Alma BRAIDER SETTER Unavailable Unavailable Fons, M Alma BRAIDER SETTER Unavailable Unavailable Fons, M Alma BRAIDER SETTER Unavailable Unavailable Fons, M Alma BRAIDER SETTER Unavailable Unavailable Fons, M Alma BRAIDER SETTER Unavailable Unavailable Fons, M Alma BRAIDER SETTER Unavailable Unavailable Fons, M Alma BRAIDER SETTER Unavailable Unavailable Fons, M Alma BRAIDER SETTER Unavailable Unavailable Fons, M Alma BRAIDER SETTER Unavailable Unavailable Fons, M Alma BRAIDER SETTER Unavailable Unavailable Fons, M Alma BRAIDER SETTER Unavailable Unavailable Fons, M Alma BRAIDER SETTER Unavailable Unavailable Fons, M Alma BRAIDER SETTER Unavailable Unavailable Fons, M Alma BRAIDER SETTER Unavailable Unavailable Fons, M Alma BRAIDER SETTER Unavailable Unavailable Fons, M Alma BRAIDER SETTER Unavailable Unavailable Fons, M Alma BRAIDER SETTER Unavailable Unavailable Fons, M Alma BRAIDER SETTER Unavailable Unavailable Fons, M Alma BRAIDER SETTER Unavailable Unavailable Fons, M Alma BRAIDER SETTER Unavailable Unavailable Fons, M Alma BRAIDER SETTER Unavailable Unavailable Fons, M Alma BRAIDER SETTER Unavailable Unavailable Fons, M Alma BRAIDER SETTER Unavailable Unavailable Fons, M Alma BRAIDER SETTER Unavailable Unavailable Jose Martin ZARCO MD Unavailable Unavailable Jose Martin ZARCO MD Unavailable Unavailable Jose Martin ZARCO MD Unavailable Unavailable Jose Martin ZARCO MD Unavailable Unavailable Jose Martin ZARCO MD Unavailable Unavailable Jose Martin ZARCO MD Unavailable Unavailable Jose Martin ZARCO MD Unavailable Unavailable Jose Martin ZARCO MD Unavailable Unavailable Jose Martin ZARCO MD Unavailable Unavailable Jose Martin ZARCO MD Unavailable Unavailable Jose Martin ZARCO MD Unavailable Unavailable Jose Martin ZARCO MD Unavailable Unavailable Jose Martin ZARCO MD Unavailable Unavailable Jose Martin ZARCO MD Unavailable Unavailable Jose Martin ZARCO MD Unavailable Unavailable Jose Martin ZARCO MD Unavailable Unavailable Jose Martin ZARCO MD Unavailable Unavailable Jose Martin ZARCO MD Unavailable Unavailable Jose Martin ZARCO MD Unavailable Unavailable Jose Martin ZARCO MD Unavailable Unavailable Jose Martin ZARCO MD Unavailable Unavailable Jose Martin ZARCO MD Unavailable Unavailable Jose Martin ZARCO MD Unavailable Unavailable Jose Martin ZARCO MD Unavailable Unavailable Jose Martin ZARCO MD Unavailable Unavailable Jose Martin ZARCO MD Unavailable Unavailable Jose Martin ZARCO MD Unavailable Unavailable CAROLEE, R BEL MD Unavailable Unavailable CAROLEE, R BEL MD Unavailable Unavailable CAROLEE, R BEL MD Unavailable Unavailable CAROLEE, R BEL MD Unavailable Unavailable CAROLEE, R BEL MD Unavailable Unavailable CAROLEE, R BEL MD Unavailable Unavailable CAROLEE, R BEL MD Unavailable Unavailable CAROLEE, R BEL MD Unavailable Unavailable CAROLEE, R BEL MD Unavailable Unavailable CAROLEE, R BEL MD Unavailable Unavailable CAROLEE, R BEL MD Unavailable Unavailable CAROLEE, R BEL MD Unavailable Unavailable CAROLEE, R BEL MD Unavailable Unavailable CAROLEE, R BEL MD Unavailable Unavailable CAROLEE, R BEL MD Unavailable Unavailable CAROLEE, R BEL MD Unavailable Unavailable CAROLEE, R BEL MD Unavailable Unavailable CAROLEE, R BEL MD Unavailable Unavailable CAROLEE, R BEL MD Unavailable Unavailable CAROLEE, R BEL MD Unavailable Unavailable CAROLEE, R BEL MD Unavailable Unavailable CAROLEE, R BEL MD Unavailable Unavailable CAROLEE, R BEL MD Unavailable Unavailable CAROLEE, R BEL MD Unavailable Unavailable CAROLEE, R BEL MD Unavailable Unavailable CAROLEE, R BEL MD Unavailable Unavailable CAROLEE, R BEL MD Unavailable Unavailable CAROLEE, R BEL MD Unavailable Unavailable CAROLEE, R BEL MD Unavailable Unavailable CAROLEE, R BEL MD Unavailable Unavailable CAROLEE, R BEL MD Unavailable Unavailable CAROLEE, R BEL MD Unavailable Unavailable CAROLEE, R BEL MD Unavailable Unavailable CAROLEE, R BEL MD Unavailable Unavailable CAROLEE, R BEL MD Unavailable Unavailable CAROLEE, R BEL MD Unavailable Unavailable CAROLEE, R BEL MD Unavailable Unavailable CAROLEE, R BEL MD Unavailable Unavailable CAROLEE, R BEL MD Unavailable Unavailable CAROLEE, R BEL MD Unavailable Unavailable CAROLEE, R BEL MD Unavailable Unavailable CAROLEE, R BEL MD Unavailable Unavailable CAROLEE, R BEL MD Unavailable Unavailable CAROLEE, R BEL MD Unavailable Unavailable CAROLEE, R BEL MD Unavailable Unavailable CAROLEE, R BEL MD Unavailable Unavailable CAROLEE, R BEL MD Unavailable Unavailable CAROLEE, R BEL MD Unavailable Unavailable CAROLEE, R BEL MD Unavailable Unavailable CAROLEE, R BEL MD Unavailable Unavailable CAROLEE, R BEL MD Unavailable Unavailable CAROLEE, R BEL MD Unavailable Unavailable CAROLEE, R BEL MD Unavailable Unavailable CAROLEE, R BEL MD Unavailable Unavailable Re-disclosure Warning The records that you are about to access may contain information from federally-assisted alcohol or drug abuse programs. If such information is present, then the following federally mandated warning applies: This information has been disclosed to you from records protected by federal confidentiality rules (42 CFR part 2). The federal rules prohibit you from making any further disclosure of this information unless further disclosure is expressly permitted by the written consent of the person to whom it pertains or as otherwise permitted by 42 CFR part 2. A general authorization for the release of medical or other information is NOT sufficient for this purpose. The Federal rules restrict any use of the information to criminally investigate or prosecute any alcohol or drug abuse patient.The records that you are about to access may contain highly sensitive health information, the redisclosure of which is protected by Article 27-F of the [facility] Public Health law. If you continue you may have access to information: Regarding HIV / AIDS; Provided by facilities licensed or operated by the [facility] Office of Mental Health; or Provided by the [facility] Office for People With Developmental Disabilities. If such information is present, then the following [facility] mandated warning applies: This information has been disclosed to you from confidential records which are protected by state law. State law prohibits you from making any further disclosure of this information without the specific written consent of the person to whom it pertains, or as otherwise permitted by law. Any unauthorized further disclosure in violation of state law may result in a fine or intermediate sentence or both. A general authorization for the release of medical or other information is NOT sufficient authorization for further disc losure. Family History Family Member Name Family Member Gender Family Member Status Date o f Status Description Data Source(s) Unknown Male Problem [facility] ([facility]) Encounters Encounter Providers Location Date Indications Data Source(s ) Outpatient Attender: Alma Sheriff FNPReferrer: [email or web address] [email or web address] 09/01/2020 12:00:00 AM EST - 09/01/2020 02:42:19 PM [facility] Outpatient Referrer: [email or web address] [email or web address] 09/01/2020 12:00:00 AM [facility] Outpatient Attender: Alma [email or web address] 0 10:49:04 AM EST - 06/29/2020 11:46:15 AM [facility] Outpatient Attender: BEL ZARCO MD [facility] 06/13/2020 01:20:00 PM EDT [facility] ([facility]) Outpatient Attender: Scarlet Miranda MD [email or web address] 05/26 12:00:00 AM EDT - 06/07/2020 12:07:41 PM EDT [facility] Outpatient Attender: BEL ZARCO MD [facility] 03/31/2020 11:00:00 AM EDT [facility] ([facility]) Outpatient Attender: BEL ZARCO MD [facility] 01/06/2020 02:20:00 PM EDT [facility] ([facility]) Outpatient Attender: BEL ZARCO MD [facility] 12/07/2019 01:56:00 PM EDT [facility] ([facility]) Outpatient Attender: BEL ZARCO MD [facility] 11/04/2019 12:57:00 PM EDT [facility] ([facility]) Outpatient Attender: BEL ZARCO MD [facility] 10/09/2019 10:44:00 AM EST [facility] ([facility]) Outpatient Attender: BEL ZARCO MD [facility] 09/22/2019 12:20:00 PM EST [facility] ([facility]) Outpatient Attender: BEL ZARCO MD [facility] 09/04/2019 09:35:00 AM EST [facility] ([facility]) Medications Medication Brand Name Start Date Product Form Dose Route Admi nistrative Instructions Pharmacy Instructions Status Indications Reaction Description Data Source(s) Furosemide 40 MG Oral Tablet furosemide (LASIX) 40 MG tablet furosemide (LASIX) 40 MG tablet 09/01/2020 12:00:00 AM EST 40 mg Oral activ e Take 1 tablet (40 mg total) by mouth daily [facility] Hydralazine Hydrochloride 10 MG Oral Tab let hydrALAZINE (APRESOLINE) 10 MG tablet hydrALAZINE (APRESOLINE) 10 MG tablet 09/01/2020 12:00:00 AM EST 10 mg Oral active Take 1 tablet (10 mg total) by mouth 3 (three) times a day [facility] Hydralazine Hydrochloride 10 MG Oral Tab let hydrALAZINE (APRESOLINE) 10 MG tablet hydrALAZINE (APRESOLINE) 10 MG tablet 08/13/2020 12:00:00 AM EST aborted [facility] 10 mg 07/07/2020 12:00:00 AM EST tablet 90 TAKE ONE TABLET BY MOUTH THREE TIMES A DAY TAKE ONE TABLET BY MOUTH THREE TIMES A DAY SOLD: 09/05/2020 [facility] 10 mg 07/07/2020 12:00:00 AM EST tablet 90 TAKE ONE TABLET BY MOUTH THREE TIMES A DAY TAKE ONE TABLET BY MOUTH THREE TIMES A DAY SOLD: 07/18/2020 [facility] 40 mg 07/01/2020 12:00:00 AM EST tablet 30 TAKE ONE TABLET BY MOUTH TWICE A DAY TAKE ONE TABLET BY MOUTH TWICE A DAY SOLD: 07/29/2020 [facility] 25 mg 07/01/2020 12:00:00 AM EST tablet 15 TAKE 1/2 TABLET BY MOUTH EVERY DAY TAKE 1/2 TABLET BY MOUTH EVERY DAY SOLD: 09/06/2020 [facility] 20 mg 07/01/2020 12:00:00 AM EST tablet 60 TAKE ONE TABLET BY MOUTH TWICE A DAY TAKE ONE TABLET BY MOUTH TWICE A DAY SOLD: 09/05/2020 [facility] 40 mg 07/01/2020 12:00:00 AM EST tablet 30 TAKE ONE TABLET BY MOUTH TWICE A DAY TAKE ONE TABLET BY MOUTH TWICE A DAY SOLD: 07/07/2020 [facility] 20 mg 07/01/2020 12:00:00 AM EST tablet 60 TAKE ONE TABLET BY MOUTH TWICE A DAY TAKE ONE TABLET BY MOUTH TWICE A DAY SOLD: 07/07/2020 [facility] 20 mg 07/01/2020 12:00:00 AM EST tablet 60 TAKE ONE TABLET BY MOUTH TWICE A DAY TAKE ONE TABLET BY MOUTH TWICE A DAY SOLD: 08/05/2020 [facility] 25 mg 07/01/2020 12:00:00 AM EST tablet 15 TAKE 1/2 TABLET BY MOUTH EVERY DAY TAKE 1/2 TABLET BY MOUTH EVERY DAY SOLD: 08/05/2020 [facility] 25 mg 07/01/2020 12:00:00 AM EST tablet 15 TAKE 1/2 TABLET BY MOUTH EVERY DAY TAKE 1/2 TABLET BY MOUTH EVERY DAY SOLD: 07/07/2020 [facility] Isosorbide Mononitrate 20 MG Oral Tablet Isosorbide Mononitr ate 06/13/2020 12:00:00 AM EDT ORAL active M [facility] ([facility]) Isosorbide Dinitrate 20 MG Oral Tablet Isosorbide Dinitrate 06/13/2020 12:00:00 AM EDT ORAL completed [facility] ([facility]) 10 mg 06/08/2020 12:00:00 AM EDT tablet 90 TAKE ONE TABLET BY MOUTH THREE TIMES A DAY TAKE ONE TABLET BY MOUTH THREE TIMES A DAY SOLD: 06/10/2020 [facility] Hydralazine Hydrochloride 10 MG Oral Tab let hydrALAZINE (APRESOLINE) 10 MG tablet hydrALAZINE (APRESOLINE) 10 MG tablet 06/07/2020 12:00:00 AM EDT 10 mg Oral active Take 1 tablet (10 mg total) by mouth 3 (three) times a day [facility] 40 mg 06/02/2020 12:00:00 AM EDT tablet 60 TAKE 1 TABLET [40MG] BY MOUTH TWO TIMES A DAY AT 9:00AM AND 5:00PM TAKE 1 TABLET [40MG] BY MOUTH TWO TIMES A DAY AT 9:00AM AND 5:00PM SOLD: 06/03/2020 [facility] 20 mg 06/02/2020 12:00:00 AM EDT tablet 60 TAKE 1 TABLET [20MG] BY MOUTH TWO TIMES A DAY TAKE 1 TABLET [20MG] BY MOUTH TWO TIMES A DAY SOLD: 06/03/2020 [facility] Spironolactone 25 MG Oral Tablet spironolactone (ALDAC TONE) 25 MG tablet spironolactone (ALDACTONE) 25 MG tablet 06/02/2020 12:00:00 AM EDT 0.5 {tbl} Oral active Take 0.5 tablets by mouth daily [facility] Furosemide 40 MG Oral Tablet furosemide (LASIX) 40 MG tablet furosemide (LASIX) 40 MG tablet 06/02/2020 12:00:00 AM EDT 60 mg Oral activ e Take 60 mg by mouth daily [facility] 25 mg 06/02/2020 12:00:00 AM EDT tablet 15 TAKE 1/2 TABLET BY MOUTH DAILY TAKE 1/2 TABLET BY MOUTH DAILY SOLD: 06/03/2020 [facility] Vitamin B 12 1 MG/ML Injectable Solution cyanocobalami n 1000 MCG/ML injection cyanocobalamin 1000 MCG/ML injection 05/06/2020 12:00:00 AM EDT active INJECT 1ML INTRAMUSCULARLY EVERY 10 DAYS [facility] 20 mg 04/11/2020 12:00:00 AM EDT capsule,delayed release (DR/EC) 90 TAKE ONE CAPSULE BY MOUTH EVERY DAY TAKE ONE CAPSULE BY MOUTH EVERY DAY SOLD: 07/18/2020 [facility] 20 mg 04/11/2020 12:00:00 AM EDT capsule,delayed release (DR/EC) 90 TAKE ONE CAPSULE BY MOUTH EVERY DAY TAKE ONE CAPSULE BY MOUTH EVERY DAY SOLD: 04/18/2020 [facility] Omeprazole 20 MG Delayed Release Oral Ca psule omeprazole (PRILOSEC) 20 MG capsule omeprazole (PRILOSEC) 20 MG capsule 04/10/2020 12:00:00 AM EDT active [facility] 24 HR Isosorbide Mononitrate 30 MG Extended Release Or al Tablet Isosorbide Mononitrate ER 03/31/2020 12:00:00 AM EDT ORAL complete d [facility] ([facility]) 24 HR Isosorbide Mononitrate 30 MG Extended Release Or al Tablet ISOSORBIDE MONONITRATE 03/31/2020 12:00:00 AM EDT tablet extended release 24 hr 30 TAKE ONE TABLET BY MOUTH AT BEDTIME TAKE ONE TABLET BY MOUTH AT BEDTIME SOLD: 04/02/2020 [facility] 24 HR Isosorbide Mononitrate 30 MG Extended Release Or al Tablet ISOSORBIDE MONONITRATE 03/31/2020 12:00:00 AM EDT tablet extended release 24 hr 30 TAKE ONE TABLET BY MOUTH AT BEDTIME TAKE ONE TABLET BY MOUTH AT BEDTIME SOLD: 05/06/2020 [facility] 24 HR Isosorbide Mononitrate 30 MG Extended Release Or al Tablet ISOSORBIDE MONONITRATE 03/31/2020 12:00:00 AM EDT tablet extended release 24 hr 30 TAKE ONE TABLET BY MOUTH AT BEDTIME TAKE ONE TABLET BY MOUTH AT BEDTIME SOLD: 06/10/2020 [facility] 1,000 mcg/mL 03/29/2020 12:00:00 AM EDT solution 3 INJECT 1ML INTRAMUSCULARLY EVERY 10 DAYS INJECT 1ML INTRAMUSCULARLY EVERY 10 DAYS SOLD: 06/03/2020 [facility] 1,000 mcg/mL 03/29/2020 12:00:00 AM EDT solution 3 INJECT 1ML INTRAMUSCULARLY EVERY 10 DAYS INJECT 1ML INTRAMUSCULARLY EVERY 10 DAYS SOLD: 08/05/2020 [facility] 1,000 mcg/mL 03/29/2020 12:00:00 AM EDT solution 3 INJECT 1ML INTRAMUSCULARLY EVERY 10 DAYS INJECT 1ML INTRAMUSCULARLY EVERY 10 DAYS SOLD: 09/06/2020 [facility] 1,000 mcg/mL 03/29/2020 12:00:00 AM EDT solution 3 INJECT 1ML INTRAMUSCULARLY EVERY 10 DAYS INJECT 1ML INTRAMUSCULARLY EVERY 10 DAYS SOLD: 07/07/2020 [facility] 1,000 mcg/mL 03/29/2020 12:00:00 AM EDT solution 3 INJECT 1ML INTRAMUSCULARLY EVERY 10 DAYS INJECT 1ML INTRAMUSCULARLY EVERY 10 DAYS SOLD: 05/07/2020 [facility] 1,000 mcg/mL 03/29/2020 12:00:00 AM EDT solution 3 INJECT 1ML INTRAMUSCULARLY EVERY 10 DAYS INJECT 1ML INTRAMUSCULARLY EVERY 10 DAYS SOLD: 04/02/2020 [facility] 5-325 mg 09/30/2019 12:00:00 AM EST tablet 10 TAKE ONE TABLET BY MOUTH EVERY 6 HOURS NEEDED TO REDUCE PAIN MAXIMUM DAILY DOSE = 2 TABLETS TAKE ONE TABLET BY MOUTH EVERY 6 HOURS NEEDED TO REDUCE PAIN MAXIMUM DAILY DOSE = 2 TABLETS SOLD: 09/30/2019 [facility] 600 mg 09/27/2019 12:00:00 AM EST tablet 28 TAKE ONE TABLET BY MOUTH EVERY 6 HOURS NEEDED TO REDUCE PAIN TAKE ONE TABLET BY MOUTH EVERY 6 HOURS A S NEEDED TO REDUCE PAIN SOLD: 09/28/2019 [facility] 500 mg 09/27/2019 12:00:00 AM EST tablet 28 TAKE ONE TABLET BY MOUTH EVERY 6 HOURS UNTIL FINISHED TAKE ONE TABLET BY MOUTH EVERY 6 HOURS UNTIL FINISHED SOLD: 09/28/2019 [facility] 5-325 mg 09/27/2019 12:00:00 AM EST tablet 5 TAKE ONE TABLET BY MOUTH EVERY 6 HOURS NEEDED TO REDUCE PAIN MAXIMUM DAILY DOSE = 2 TABLETS TAKE ONE TABLET BY MOUTH EVERY 6 HOURS NEEDED TO REDUCE PAIN MAXIMUM DAILY DOSE = 2 TABLETS SOLD: 09/28/2019 [facility] Vitamin B-12 (To 1000 mcg) 09/22/2019 12:00:00 AM EST completed [facility] ([facility]) Medication administered onsite Therapeutic, Prophylactic Or Diagnostic Injection Subq/Im 09/22/2019 12:00:00 AM EST completed [facility] ([facility]) Medication administered onsite 1,000 mcg/mL 03/25/2019 12:00:00 AM EDT solution 3 INJECT 1ML INTRAMUSCULARLY EVERY 10 DAYS INJECT 1ML INTRAMUSCULARLY EVERY 10 DAYS SOLD: 02/04/2020 [facility] 1,000 mcg/mL 03/25/2019 12:00:00 AM EDT solution 3 INJECT 1ML INTRAMUSCULARLY EVERY 10 DAYS INJECT 1ML INTRAMUSCULARLY EVERY 10 DAYS SOLD: 09/01/2019 [facility] 1,000 mcg/mL 03/25/2019 12:00:00 AM EDT solution 3 INJECT 1ML INTRAMUSCULARLY EVERY 10 DAYS INJECT 1ML INTRAMUSCULARLY EVERY 10 DAYS SOLD: 12/05/2019 [facility] 1,000 mcg/mL 03/25/2019 12:00:00 AM EDT solution 3 INJECT 1ML INTRAMUSCULARLY EVERY 10 DAYS INJECT 1ML INTRAMUSCULARLY EVERY 10 DAYS SOLD: 11/05/2019 [facility] 1,000 mcg/mL 03/25/2019 12:00:00 AM EDT solution 3 INJECT 1ML INTRAMUSCULARLY EVERY 10 DAYS INJECT 1ML INTRAMUSCULARLY EVERY 10 DAYS SOLD: 10/14/2019 [facility] 1,000 mcg/mL 03/25/2019 12:00:00 AM EDT solution 3 INJECT 1ML INTRAMUSCULARLY EVERY 10 DAYS INJECT 1ML INTRAMUSCULARLY EVERY 10 DAYS SOLD: 01/04/2020 [facility] 1,000 mcg/mL 03/25/2019 12:00:00 AM EDT solution 3 INJECT 1ML INTRAMUSCULARLY EVERY 10 DAYS INJECT 1ML INTRAMUSCULARLY EVERY 10 DAYS SOLD: 03/05/2020 [facility] 20 mg 03/25/2019 12:00:00 AM EDT capsule,delayed release (DR/EC) 90 TAKE ONE CAPSULE BY MOUTH EVERY DAY TAKE ONE CAPSULE BY MOUTH EVERY DAY SOLD: 01/14/2020 [facility] 20 mg 03/25/2019 12:00:00 AM EDT capsule,delayed release (DR/EC) 90 TAKE ONE CAPSULE BY MOUTH EVERY DAY TAKE ONE CAPSULE BY MOUTH EVERY DAY SOLD: 10/14/2019 [facility] Isosorbide Dinitrate 20 MG Oral Tablet i sosorbide dinitrate (ISORDIL) 20 MG tablet isosorbide dinitrate (ISORDIL) 20 MG tablet 20 mg Oral active Take 20 mg by mouth 2 (two) times a day [facility] Insurance Providers Payer name Policy type / Coverage type Policy ID Covered democrat ID Covered democrat's relationship to wright Policy Wright Plan Information MEDICARE [id number] SP [id number] UNITED [employer] GE PARTB [id number] SP [id number] [facility] [id number] MEDICARE [id number] [facility] [id number] Elsa [id number] MEDICARE [id number] Elsa [id number] MEDICARE C [id number] S [id number] UNITED HEALTHCARE GE PAR O [id number] S [id number] [facility] Commercial Medigap Part B [id number] Self [id number] Medicare Railroad Medicare Primary [id number] Self [id number] Medicare Railroad Medicare Primary [id number] Self [id number] Medicare Railroad Medicare Primary [id number] Self [id number] United Healthcare Medigap Part B [id number] Self [id number] Medicare Railroad Medicare Primary [id number] Self [id number] MEDICARE [id number] SP [id number] Medicare Railroad Medicare Primary [id number] Self [id number] Medicare Railroad Medicare Primary [id number] Self [id number] UNITED HEALTHCARE GE PARTB [id number] SP [id number] [employer] MEDICARE C [id number] S A [id number] UNITED [employer]CARE GE PARTB [id number] SP [id number] United Healthcare Medigap Part B Self Medicare Railroad Medicare Primary Self [facility] INDEMNITY O [id number] S [id number] MEDICARE M [id number] S [id number] UNITED HE[employer]CARE O [id number] S [id number] MEDICARE -O/P [id number] Problems, Conditions, and Diagnoses Code Display Name Description Problem Type Effective Dates Data Source(s) I10 Essential hypertension Essential hypertension [id number] 06/07/2020 12:00:00 AM EDT [facility] 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 4 chronic kidney disease [id number] 06/07/2020 12:00:00 AM EDT 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 [id number] Chronic kidney disease stage 3 Chronic kidney disease stage 3 Problem 08/02/2019 12:00:00 AM EST [facility] ([facility]) I10 Essential (primary) hypertension Essential (primary) h ypertension Diagnosis 06/29/2020 10:49:04 AM EST [facility] N18.4 Chronic kidney disease, stage 4 (severe) Chronic kidney disease, stage 4 (severe) Diagnosis 06/29/2020 10:49:04 AM EST [facility] 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 Chronic combined systolic (congestive) a Diagnosis 06/29/2020 10:49:04 AM EST [facility] Surgeries/Procedures Procedure Description Date Indications Data Source(s) POCT AMB EKG POCT AMB EKG Routine 09/01/2020 4:39 PM EST Chronic combined systolic and diastolic congestive heart failure 09/01/2020 09:39:00 PM EST Chronic combined systolic and diastolic congestive heart failure [facility] Chronic combined systolic and diastolic congestive heart failure BLOOD COUNT COMPLETE AUTO&AUTO DIFRNTL WBC COUNT CBC AND DIFFER ENTIAL Routine 07/26/2020 07/26/2020 12:00:00 AM EST [facility] HEPATIC FUNCTION PANEL HEPATIC FUNCTION PANEL Routine 07/26/2020 07/26/2020 12:00:00 AM EST [facility] BASIC METABOLIC PANEL CALCIUM TOTAL BASIC METABOLIC PANEL Routine 07/26/2020 07/26/2020 12:00:00 AM EST [facility] BLOOD COUNT COMPLETE AUTO&AUTO DIFRNTL WBC COUNT CBC AND DIFFER ENTIAL Routine 06/16/2020 06/16/2020 12:00:00 AM EDT [facility] HEPATIC FUNCTION PANEL HEPATIC FUNCTION PANEL Routine 06/16/2020 06/16/2020 12:00:00 AM EDT [facility] BASIC METABOLIC PANEL CALCIUM TOTAL BASIC METABOLIC PANEL Routine 06/16/2020 06/16/2020 12:00:00 AM EDT [facility] Electrocardiogram Complete 03/31/2020 12:00:00 AM EDT [facility] ([facility]) Therapeutic, Prophylactic Or Diagnostic Injection Subq/Im 09/22/2019 12:00:00 AM EST [facility] Results ID Date Data Source [id number] 09/02/2020 05:29:15 PM EST [facility] Name Value Range Interpretation Code Description Data Devi rce(s) Supporting Document(s) &PDF [facility] MAASQr1uGgNCOsUr45/CATfjYPGhn9WpUBdxNQn9XZegLPZkU0ItvIfuNK1MR9ETMRhZLKtQJC2wLFAo oRX [file] AgICAgICAgICAgICAgICAgICAgICAgICAgICAgICAg ICAgICAgICAgICAgICAgICAgICAgICAgICAgICAgICAgICAgICAgICAgICAgICAgICAgICAgICAgICAg ICAgICAgICANCiAgICAgICAgICAgICAgICAgICAgICAgICAgICAgICAgICAgICAgICAgICAgICAgICAg ICAgICAgICAgICAgICAgICAgICAgICAgICAgICAgIC AgICAgICAgICAgICAgICAgICANCiAgICAgICAgICAgICAgICAgICAgICAgICAgICAgICAgICAgICAgIC AgICAgICAgICAgICAgICAgICAgICAgICAgICAgICAgICAgICAgICAgICAgICAgICAgICAgICAgICAgIC ANCiAgICAgICAgICAgICAgICAgICAgICAgICAgICAg ICAgICAgICAgICAgICAgICAgICAgICAgICAgICAgICAgICAgICAgICAgICAgICAgICAgICAgICAgICAg ICAgICAgICAgICANCiAgICAgICAgICAgICAgICAgICAgICAgICAgICAgICAgICAgICAgICAgICAgICAg ICAgICAgICAgICAgICAgICAgICAgICAgICAgICAgIC AgICAgICAgICAgICAgICAgICAgICANCiAgICAgICAgICAgICAgICAgICAgICAgICAgICAgICAgICAgIC AgICAgICAgICAgICAgICAgICAgICAgICAgICAgICAgICAgICAgICAgICAgICAgICAgICAgICAgICAgIC AgICANCiAgICAgICAgICAgICAgICAgICAgICAgICAg ICAgICAgICAgICAgICAgICAgICAgICAgICAgICAgICAgICAgICAgICAgICAgICAgICAgICAgICAgICAg ICAgICAgICAgICAgICANCiAgICAgICAgICAgICAgICAgICAgICAgICAgICAgICAgICAgICAgICAgICAg ICAgICAgICAgICAgICAgICAgICAgICAgICAgICAgIC AgICAgICAgICAgICAgICAgICAgICAgICANCiAgICAgICAgICAgICAgICAgICAgICAgICAgICAgICAgIC AgICAgICAgICAgICAgICAgICAgICAgICAgICAgICAgICAgICAgICAgICAgICAgICAgICAgICAgICAgIC AgICAgICANCiAgICAgICAgICAgICAgICAgICAgICAg ICAgICAgICAgICAgICAgICAgICAgICAgICAgICAgICAgICAgICAgICAgICAgICAgICAgICAgICAgICAg ICAgICAgICAgICAgICAgICANCjw/hMBvY5thgXZsxwJ7E8dyIe1QFc2SBF9at3XfCHUfYTwsjrCuNbcT MeHgEKAeUbwNKrd7HHgxIC6WqENrV0KgQ7KyOOmvYY 2UZAOmEBLhiXYrWRTcQRIkKhX5SMFpQPmnXH1CgRWyIIslULFzGAIpHuHkBDFvJS3TVMUlC292auXaEg 7GAq7HAhMtEW9ivt7VAsHxVPEbDroQKfv1RIezIF6QrWYnH6QquEEiq6bGYjKnY7NOOYQ6XMMcWt5INH BxUlGmWCGkUKjwKN8qHWErJVQJpLkacmV5RI4AMR1s moPfCH1YLjDjMc8pLi7QHhEwV8VzC5EdEMLoQSXKYGkdMO0YOUOoJPT4AVLvQQDpWBRIUwUzD86rDO6U Q7Ztk78kRmT5EYUuHbFjTIpdUH34kBvucmFnsHRljCgoNG6OUw9+DQplbmRvYmoNCnhyZWYNCjAgMjIN SqQpNRCjJWWaACWlYpK9AbYkCf8FUCZxJOQbHJVqXh XyZKJzFOQlVHueRJLnXXM5DrmwOSIhJIYwKC5REhNpVFIzZyU8AlIaEYUlGLHjaa3YPJCzBPEgMJF2BI AwEWZvTLBgYDjpMJCaAHHjTSQ9CQMuGSWtOW8OAcLwPWRcWCM5VERjITQnFUCqcg6TUYAzASHhJVcoBL KnFJRbRUPdASapYJEtUVH9OXQoXBBhDMQsRG3TNuHt WEKeATV4RrToWDVgNFXfzi1JLGNyQKRpAmL8HpHfEUVvUUJkEVrvBYFgOCO1WdS3ZZPgSYKqNE2GNsZy GTLhHAvbFAqfEURnRSEkfd9IADJsKBLnTVBxSFKnEDPaKBBpCZbaHYUaGHI4TOf1ZAYpCRDcRJ0TAlFh DHWbKIk2FLUzQUHuAJBtlj7RISNbGYRbDHs3TnUaMX PaHOZkYBlwPPRmLAH1LETsZRDoTNKvZN8EThYdUQKeYWS0PwRiBFUgNTZhaw9RFCPaXTWqWPD6YVUoEX LxQIUeEQwcTJFeHQN8NCwqUDCuJUIpEZ0XGvWwQIGeWlO7YfReXUQfRZKdfv2WqWZzoDdbzn1VECiROf 5FjBisXMYaVYukEp7khPTtVITyUJQNNg9WlcSzQKGf TKANKAunGKGnQPQ5MDJ9OTSjVuGnAkSsFoV7RfXdDsRaWvXyJDEvCCEjAkH0ZND0GHWhOCMrYUQfEWHk Cwy4D7QlXZZ1GcOoJFV5XWO+AX4qVLa+Xh3Vo0YnsnH3bySsKAmxTGnzOm3GJTSRM9KNXp== ID Date Data Source [id number] 07/26/2020 04:04:00 PM EST [facility] ([facility]) Name Value Range Interpretation Code Description Data Devi rce(s) Supporting Document(s) CPK Creatine Phosphokinase 167 U/L 39-308 Kailee l (applies to non-numeric results) [facility] ([facility]) CK-MB Value Mass 5.2 ng/mL Above high normal [facility]) MB/CK Relative Index 3.11 Normal (applies to non-num jerrod results) [facility] ([facility]) <content>DIAGNOSIS CRITERIA</content>
<content>MMB ng/ml Relative Index (RI)</content>
<content>NON-AMI < or = 5 N/A</content>
<content>WALTON ZONE > 5 < or = 4</content>
<content>AMI > 5 > 4</content>
<content></content> Troponin I 0.04 ng/mL Significant change down [facility]) <content>Troponin I Reference Interval f or Siemens [place] LOCI:</content>
<content></content>
<content>99th Percentile= 0.00-0.045 ng/ml</content>
<content></content>
<content>Risk Stratification:</content>
<content><= 0.10 ng/ml Decreased Risk for Adverse Clinical</content>
<content>Events.</content>
<content>0.10-1.50 ng/ml Increased Risk for Adverse Clinical</content>
<content>Events. Evaluation of additional</content>
<content>criterion and/or repeat testing in 2-6</content>
<content>hours is suggested to rule out myocardial</content>
<content>damage.</content>
<content>>= 1.50 ng/ml Indicative of Myocardial Injury.</content>
<content></content> ID Date Data Source [id number] 07/26/2020 01:12:00 PM EST [facility] ([facility]) Name Value Range Interpretation Code Description Data Devi rce(s) Supporting Document(s) Natriuretic peptide.B prohormone N-Terminal [Mass/volu me] in Serum or Plasma 2213 pg/mL Above high normal [facility] ([facility]) Lipase [Enzymatic activity/volume] in Serum or Plasma 158 U/L 73-393 Normal (applies to non-numeric results) [facility] Thyrotropin [Units/volume] in Serum or Plasma 5.180 uIU/ML 0. 358-3.740 Above high normal [facility] ([facility]) ID Date Data Source [id number] 07/26/2020 01:12:00 PM EST [facility] ([facility]) Name Value Range Interpretation Code Description Data Devi rce(s) Supporting Document(s) Glucose, Fasting 110 mg/dL 70-100 Above high normal [facility] ([facility]) Blood Urea Nitrogen 61 mg/dL 7-18 Above high normal [facility] ([facility]) Creatinine For GFR 3.31 mg/dL 0.70-1.30 Above high normal [facility] ([facility]) Glomerular Filtration Rate 18.9 Below low normal [facility] ([facility]) <content>Units are mL/min/1.73 m2</content>
<content></content>
<content>Chronic Kidney Disease Staging per NKF:</content>
<content></content>
<content>Stage I & II GFR >=60 Normal to Mildly Decreased</content>
<content>Stage III GFR 30- 59 Moderately Decreased</content>
<content>Stage IV GFR 15-29 Severely Decreased</content>
<content>Stage V GFR <15 Very Little GFR Left</content>
<content>ESRD GFR <15 on LIGHTING DESIGNER</content>
<content></content> Sodium Level 137 meq/L 136-145 Normal (applies to non-numeric res ults) [facility] ([facility]) Chloride Level 106 meq/L 98-107 Normal (applies to non-numeric r esults) [facility] ([facility]) Potassium Serum 4.7 meq/L 3.5-5.1 Normal (applies to non-numeric results) [facility] ([facility]) Carbon Dioxide Level 28 meq/L 21-32 Normal (applies to non-num jerrod results) [facility] ([facility]) Calcium Level 8.2 mg/dL 8.8-10.2 Below low normal [facility] ([facility]) Anion Gap 3 meq/L 8-16 Below low normal [facility] ([facility]) ID Date Data Source [id number] 07/26/2020 01:12:00 PM EST [facility] ([facility]) Name Value Range Interpretation Code Description Data Devi rce(s) Supporting Document(s) Ast/Sgot 27 U/L 7-37 Normal (applies to non-numeric resul ts) [facility] ([facility]) Alt/SGPT 29 U/L 12-78 Normal (applies to non-numeric resul ts) [facility] ([facility]) Alkaline Phosphatase 88 U/L 45-117 Normal (applies to non-num jerrod results) [facility] ([facility]) Bilirubin,Total 0.3 mg/dL 0.2-1.0 Normal (applies to non-numeric results) [facility] ([facility]) Bilirubin,Direct 0.1 mg/dL 0.0-0.2 Normal (applies to non-numeric results) [facility]) Albumin 2.9 GM/DL 3.2-5.2 Below low normal [facility] ([facility]) Albumin/Globulin Ratio 0.9 Normal (applies to non-n umeric results) [facility] ([facility]) Total Protein 6.0 GM/DL 6.4-8.2 Below low normal [facility] ([facility]) ID Date Data Source [id number] 07/26/2020 01:12:00 PM EST [facility] ([facility]) Name Value Range Interpretation Code Description Data Devi rce(s) Supporting Document(s) CPK Creatine Phosphokinase 165 U/L 39-308 Kailee l (applies to non-numeric results) [facility] ([facility]) CK-MB Value Mass 5.2 ng/mL Above high normal [facility] MB/CK Relative Index 3.15 Normal (applies to non-num jerrod results) [facility]) <content>DIAGNOSIS CRITERIA</content>
<content>MMB ng/ml Relative Index (RI)</content>
<content>NON-AMI < or = 5 N/A</content>
<content>WALTON ZONE > 5 < or = 4</content>
<content>AMI > 5 > 4</content>
<content></content> Troponin I 0.03 ng/mL Normal (applies to non-numeric resul ts) [facility]) <content>Troponin I Reference Interval f or Siemens [place] LOCI:</content>
<content></content>
<content>99th Percentile= 0.00-0.045 ng/ml</content>
<content></content>
<content>Risk Stratification:</content>
<content><= 0.10 ng/ml Decreased Risk for Adverse Clinical</content>
<content>Events.</content>
<content>0.10-1.50 ng/ml Increased Risk for Adverse Clinical</content>
<content>Events. Evaluation of additional</content>
<content>criterion and/or repeat testing in 2-6</content>
<content>hours is suggested to rule out myocardial</content>
<content>damage.</content>
<content>>= 1.50 ng/ml Indicative of Myocardial Injury.</content>
<content></content> ID Date Data Source [id number] 07/26/2020 01:12:00 PM EST [facility] ([facility]) Name Value Range Interpretation Code Description Data Devi rce(s) Supporting Document(s) aPTT in Platelet poor plasma by Coagulation assay 26.5 s 24.2-38.5 Normal (applies to non-numeric results) [facility] ID Date Data Source [id number] 07/26/2020 01:12:00 PM EST [facility] ([facility]) Name Value Range Interpretation Code Description Data Devi rce(s) Supporting Document(s) Prothrombin Time 13.0 s 12.5-14.3 Normal (applies to non-numeric results) [facility] ([facility]) Inr 0.96 Normal (applies to non-numeric resul ts) [facility] ([facility]) THERAPUTIC HUMAN INR VALUES INDICATIONS NORMAL RANGES PROPHYLAXIS/TREATMENT OF: VENOUS THROMBOSIS 2.0-3.0 PULMONARY EMBOLISM 2.0-3.0 PREVENTION OF SYSTEMIC EMBOLISM FROM: TISSUE HEART VALVES 2.0-3.0 ACUTE MYOCARDIAL INFARCTION 2.0-3.0 VALVULAR HEART DISEASE 2.0-3.0 ATRIAL FIBRILLATION 2.0-3.0 MECHANICAL VALVES(HIGH RISK) 2.5-3.5 RECURRENT MYOCARDIAL INFARCTION 2.5-3.5 ID Date Data Source [id number] 07/26/2020 01:12:00 PM EST [facility] ([facility]) Name Value Range Interpretation Code Description Data Devi rce(s) Supporting Document(s) White Blood Count 4.8 10 4.0-10.0 Normal (applies to non-numeri c results) [facility] ([facility]) Red Blood Count 3.83 10 4.30-6.10 Below low normal [facility] ([facility]) Hemoglobin 11.5 g/dL 13.5-17.5 Below low normal [facility] ( [facility]) Hematocrit 36.0 % 42.0-52.0 Below low normal [facility] ([facility]) Mean Corpuscular Volume 94.0 fl 80.0-96.0 Normal ( applies to non-numeric results) [facility] ([facility]) Mean Corpuscular HGB Conc 31.9 g/dL 32.0-36.5 Below low normal [facility] ([facility]) Mean Corpuscular Hemoglobin 30.0 pg 27.0-33.0 Norm al (applies to non-numeric results) [facility] ([facility]) Red Cell Distribution Width 14.1 % 11.5-14.5 Norm al (applies to non-numeric results) [facility] ([facility]) Platelet Count, Automated 170 10 150-450 Normal (applies to non-numeric results) [facility] ([facility]) Neutrophils % 72.5 % 36.0-66.0 Above high normal [facility] ([facility]) Pepin % 6.6 % 0.0-5.0 Above high normal [facility] ([facility]) Lymph % 17.6 % 24.0-44.0 Below low normal [facility] ([facility]) Eos % 2.7 % 0.0-3.0 Normal (applies to non-numeric resul ts) [facility] ([facility]) Baso % 0.4 % 0.0-1.0 Normal (applies to non-numeric resul ts) [facility] ([facility]) Immature Granulocyte % 0.2 % 0-3.0 Normal (applies to non-n umeric results) [facility] ([facility]) Nucleated Red Blood Cell % 0.0 % 0-0 Normal (applies to n on-numeric results) [facility] ([facility]) Neutrophils # 3.5 10 1.5-8.5 Normal (applies to non-numeric re sults) [facility] ([facility]) Pepin # 0.3 10 0.0-0.8 Normal (applies to non-numeric resul ts) [facility] ([facility]) Lymph # 0.9 10 1.5-5.0 Below low normal [facility] ([facility]) Eos # 0.1 10 0.0-0.5 Normal (applies to non-numeric resul ts) [facility] ([facility]) Baso # 0.0 10 0.0-0.2 Normal (applies to non-numeric resul ts) [facility] ([facility]) ID Date Data Source [id number] 06/16/2020 08:41:00 AM EDT [facility] ([facility]) Name Value Range Interpretation Code Description Data Devi rce(s) Supporting Document(s) Glucose, Fasting 92 mg/dL 70-100 Normal (applies to non-numeric results) [facility] ([facility]) Blood Urea Nitrogen 56 mg/dL 7-18 Above high normal [facility] ([facility]) Glomerular Filtration Rate 20.8 Below low normal [facility] ([facility]) <content>Units are mL/min/1.73 m2</content>
<content></content>
<content>Chronic Kidney Disease Staging per NKF:</content>
<content></content>
<content>Stage I & II GFR >=60 Normal to Mildly Decreased</content>
<content>Stage III GFR 30- 59 Moderately Decreased</content>
<content>Stage IV GFR 15-29 Severely Decreased</content>
<content>Stage V GFR <15 Very Little GFR Left</content>
<content>ESRD GFR <15 on LIGHTING DESIGNER</content>
<content></content> Creatinine For GFR 3.05 mg/dL 0.70-1.30 Above high normal [facility] ([facility]) Sodium Level 138 meq/L 136-145 Normal (applies to non-numeric res ults) [facility] ([facility]) Chloride Level 102 meq/L 98-107 Normal (applies to non-numeric r esults) [facility] ([facility]) Potassium Serum 4.4 meq/L 3.5-5.1 Normal (applies to non-numeric results) [facility] ([facility]) Carbon Dioxide Level 30 meq/L 21-32 Normal (applies to non-num jerrdo results) [facility] ([facility]) Anion Gap 6 meq/L 8-16 Below low normal [facility] ([facility]) Ast/Sgot 22 U/L 7-37 Normal (applies to non-numeric resul ts) [facility] ([facility]) Calcium Level 8.5 mg/dL 8.8-10.2 Below low normal [facility] ([facility]) Alkaline Phosphatase 80 U/L 45-117 Normal (applies to non-num jerrod results) [facility] ([facility]) Alt/SGPT 26 U/L 12-78 Normal (applies to non-numeric resul ts) [facility] ([facility]) Bilirubin,Total 0.4 mg/dL 0.2-1.0 Normal (applies to non-numeric results) [facility] ([facility]) Total Protein 6.5 GM/DL 6.4-8.2 Normal (applies to non-numeric re sults) [facility] ([facility]) Albumin 3.2 GM/DL 3.2-5.2 Normal (applies to non-numeric resul ts) [facility] ([facility]) Albumin/Globulin Ratio 1.0 Normal (applies to non-n umeric results) [facility] ([facility]) ID Date Data Source [id number] 06/16/2020 08:41:00 AM EDT [facility] ([facility]) Name Value Range Interpretation Code Description Data Devi rce(s) Supporting Document(s) White Blood Count 4.7 10 4.0-10.0 Normal (applies to non-numeri c results) [facility] ([facility]) Red Blood Count 3.89 10 4.30-6.10 Below low normal [facility] ([facility]) Hemoglobin 11.6 g/dL 13.5-17.5 Below low normal [facility] ( [facility]) Hematocrit 37.7 % 42.0-52.0 Below low normal [facility] Mean Corpuscular Volume 96.9 fl 80.0-96.0 Above high normal [facility] ([facility]) Mean Corpuscular Hemoglobin 29.8 pg 27.0-33.0 Norm al (applies to non-numeric results) [facility] ([facility]) Mean Corpuscular HGB Conc 30.8 g/dL 32.0-36.5 Below low normal [facility] ([facility]) Red Cell Distribution Width 13.0 % 11.5-14.5 Norm al (applies to non-numeric results) [facility] ([facility]) Neutrophils % 68.6 % 36.0-66.0 Above high normal [facility] ([facility]) Platelet Count, Automated 149 10 150-450 Below low normal [facility] ([facility]) Pepin % 6.4 % 0.0-5.0 Above high normal [facility] ([facility]) Lymph % 19.9 % 24.0-44.0 Below low normal [facility] Eos % 4.1 % 0.0-3.0 Above high normal [facility] ([facility]) Baso % 0.4 % 0.0-1.0 Normal (applies to non-numeric resul ts) [facility] ([facility]) Immature Granulocyte % 0.6 % 0-3.0 Normal (applies to non-n umeric results) [facility] ([facility]) Nucleated Red Blood Cell % 0.0 % 0-0 Normal (applies to n on-numeric results) [facility] ([facility]) Neutrophils # 3.2 10 1.5-8.5 Normal (applies to non-numeric re sults) [facility] ([facility]) Lymph # 0.9 10 1.5-5.0 Below low normal [facility] ([facility]) Pepin # 0.3 10 0.0-0.8 Normal (applies to non-numeric resul ts) [facility] ([facility]) Eos # 0.2 10 0.0-0.5 Normal (applies to non-numeric resul ts) [facility] ([facility]) Baso # 0.0 10 0.0-0.2 Normal (applies to non-numeric resul ts) [facility] ([facility]) ID Date Data Source [id number] 06/16/2020 08:41:00 AM EDT [facility] ([facility]) Name Value Range Interpretation Code Description Data Devi rce(s) Supporting Document(s) Natriuretic peptide.B prohormone N-Terminal [Mass/volu me] in Serum or Plasma 6362 pg/mL Above high normal [facility] ([facility]) ID Date Data Source [id number] 06/04/2020 09:26:00 AM EDT [facility] Name Value Range Interpretation Code Description Data Devi rce(s) Supporting Document(s) Blood Urea Nitrogen 41 mg/dL 7-18 Above high normal [facility] ([facility]) Glucose, Fasting 91 mg/dL 70-100 Normal (applies to non-numeric results) [facility] ([facility]) Glomerular Filtration Rate 21.4 Below low normal [facility] ([facility]) <content>Units are mL/min/1.73 m2</content>
<content></content>
<content>Chronic Kidney Disease Staging per NKF:</content>
<content></content>
<content>Stage I & II GFR >=60 Normal to Mildly Decreased</content>
<content>Stage III GFR 30- 59 Moderately Decreased</content>
<content>Stage IV GFR 15-29 Severely Decreased</content>
<content>Stage V GFR <15 Very Little GFR Left</content>
<content>ESRD GFR <15 on LIGHTING DESIGNER</content>
<content></content> Creatinine For GFR 2.97 mg/dL 0.70-1.30 Above high normal [facility] ([facility]) Sodium Level 137 meq/L 136-145 Normal (applies to non-numeric res ults) [facility] ([facility]) Potassium Serum 4.4 meq/L 3.5-5.1 Normal (applies to non-numeric results) [facility] ([facility]) Chloride Level 100 meq/L 98-107 Normal (applies to non-numeric r esults) [facility] ([facility]) Anion Gap 5 meq/L 8-16 Below low normal [facility] ([facility]) Carbon Dioxide Level 32 meq/L 21-32 Normal (applies to non-num jerrod results) [facility] ([facility]) Calcium Level 8.0 mg/dL 8.8-10.2 Below low normal [facility] ([facility]) ID Date Data Source [id number] 04/01/2020 09:00:00 AM EDT [facility] ([facility]) Name Value Range Interpretation Code Description Data Devi rce(s) Supporting Document(s) Estimated Average Glucose 120 mg/dL 60-110 Above high normal [facility] ([facility]) Hemoglobin A1c 5.8 % Normal (applies to non-numeric r esults) [facility] ([facility]) <content>REFERENCE RANGES:</content><br/ ><content></content>
<content><=5.6% NORMAL</content>
<content>5.7-6.4% SUGGESTS IMPAIRED GLUCOSE METABOLISM/PREDIABETIC</content>
<content>>= 6.5% ABNORMAL</content>
<content></content> ID Date Data Source [id number] 04/01/2020 09:00:00 AM EDT [facility] ([facility]) Name Value Range Interpretation Code Description Data Devi rce(s) Supporting Document(s) White Blood Count 4.4 10 4.0-10.0 Normal (applies to non-numeri c results) [facility] ([facility]) Red Blood Count 3.78 10 4.30-6.10 Below low normal MED [facility] ([facility]) Hemoglobin 11.6 g/dL 13.5-17.5 Below low normal [facility] ( [facility]) Hematocrit 36.1 % 42.0-52.0 Below low normal [facility] ([facility]) Mean Corpuscular Volume 95.5 fl 80.0-96.0 Normal ( applies to non-numeric results) [facility] ([facility]) Mean Corpuscular HGB Conc 32.1 g/dL 32.0-36.5 Normal (applies to non-numeric results) [facility] ([facility]) Mean Corpuscular Hemoglobin 30.7 pg 27.0-33.0 Norm al (applies to non-numeric results) [facility] ([facility]) Red Cell Distribution Width 13.5 % 11.5-14.5 Norm al (applies to non-numeric results) [facility] ([facility]) Platelet Count, Automated 156 10 150-450 Normal (applies to non-numeric results) [facility] ([facility]) Neutrophils % 74.0 % 36.0-66.0 Above high normal MEDE NT ([facility]) Pepin % 6.6 % 0.0-5.0 Above high normal [facility] ([facility]) Lymph % 16.2 % 24.0-44.0 Below low normal [facility] ([facility]) Eos % 2.7 % 0.0-3.0 Normal (applies to non-numeric resul ts) [facility] ([facility]) Baso % 0.5 % 0.0-1.0 Normal (applies to non-numeric resul ts) [facility] ([facility]) Immature Granulocyte % 0.0 % 0-3.0 Normal (applies to non-n umeric results) [facility] ([facility]) Nucleated Red Blood Cell % 0.0 % 0-0 Normal (applies to n on-numeric results) [facility] ([facility]) Neutrophils # 3.2 10 1.5-8.5 Normal (applies to non-numeric re sults) [facility] ([facility]) Lymph # 0.7 10 1.5-5.0 Below low normal [facility] ([facility]) Pepin # 0.3 10 0.0-0.8 Normal (applies to non-numeric resul ts) [facility] ([facility]) Eos # 0.1 10 0.0-0.5 Normal (applies to non-numeric resul ts) [facility] ([facility]) Baso # 0.0 10 0.0-0.2 Normal (applies to non-numeric resul ts) [facility] ([facility]) ID Date Data Source [id number] 09/24/2019 10:19:00 AM EST [facility] ([facility]) Name Value Range Interpretation Code Description Data Devi rce(s) Supporting Document(s) Hemoglobin A1c 5.6 % Normal (applies to non-numeric r esults) [facility] ([facility]) REFERENCE RANGES: 4.5-5.6% NORMAL 5.7-6.4% SUGGESTS IMPAIRED GLUCOSE META BOLISM >= 6.5% ABNORMAL Estimated Average Glucose 114 mg/dL 60-110 Above high normal [facility] ([facility]) ID Date Data Source [id number] 09/24/2019 10:19:00 AM EST [facility] ([facility]) Name Value Range Interpretation Code Description Data Devi rce(s) Supporting Document(s) Creatinine For GFR 1.92 mg/dL 0.70-1.30 Above high normal [facility] ([facility]) Glucose, Fasting 92 mg/dL 70-100 Normal (applies to non-numeric results) [facility] ([facility]) Blood Urea Nitrogen 28 mg/dL 7-18 Above high normal [facility] Sodium Level 140 meq/L 136-145 Normal (applies to non-numeric res ults) [facility] ([facility]) Potassium Serum 4.5 meq/L 3.5-5.1 Normal (applies to non-numeric results) [facility] ([facility]) Glomerular Filtration Rate 35.5 Normal (applies to n on-numeric results) [facility]) <content>Units are mL/min/1.73 m2</content>
<content></content>
<content>Chronic Kidney Disease Staging per NKF:</content>
<content></content>
<content>Stage I & II GFR >=60 Normal to Mildly Decreased</content>
<content>Stage III GFR 30- 59 Moderately Decreased</content>
<content>Stage IV GFR 15-29 Severely Decreased</content>
<content>Stage V GFR <15 Very Little GFR Left</content>
<content>ESRD GFR <15 on LIGHTING DESIGNER</content>
<content></content> Carbon Dioxide Level 29 meq/L 21-32 Normal (applies to non-num jerrod results) [facility] ([facility]) Chloride Level 108 meq/L 98-107 Above high normal [facility] ([facility]) Calcium Level 8.2 mg/dL 8.8-10.2 Below low normal [facility] T ([facility]) Anion Gap 3 meq/L 8-16 Below low normal [facility] ([facility]) Ast/Sgot 17 U/L 7-37 Normal (applies to non-numeric resul ts) [facility] ([facility]) Alkaline Phosphatase 110 U/L 45-117 Normal (applies to non-num jerrod results) [facility] ([facility]) Alt/SGPT 22 U/L 12-78 Normal (applies to non-numeric resul ts) [facility] ([facility]) Bilirubin,Total 0.6 mg/dL 0.2-1.0 Normal (applies to non-numeric results) [facility] ([facility]) Albumin/Globulin Ratio 1.19 1.00-1.93 Normal (applies to non-numeric results) [facility] ([facility]) Albumin 3.2 GM/DL 3.2-5.2 Normal (applies to non-numeric resul ts) [facility] ([facility]) Total Protein 5.9 GM/DL 6.4-8.2 Below low normal [facility] ([facility]) Procedure Social History Code Duration Value Status Description Data Source(s ) Alcohol intake 09/01/2020 12:00:00 AM EST Yes completed [facility] Smoking 09/01/2020 12:00:00 AM EST Former smoker completed Former smoker [facility] Alcohol intake 06/07/2020 12:00:00 AM EDT Yes completed [facility] Smoking 06/07/2020 12:00:00 AM EDT Former smoker completed Former smoker [facility] Vital Signs ID Date Data Source UNK Name Value Range Interpretation Code Description Data Source(s) Oxygen saturation in Arterial blood by Pulse oximetry 98 % 98 % [facility] Body mass index (BMI) [Ratio] 24.33 kg/m2 24.33 kg/m2 [facility] Body weight 72.576 kg 72.576 kg [facility] Body height 172.7 cm 172.7 cm [facility] Heart rate 80 /min 80 /min [facility] Diastolic blood pressure 70 mm[Hg] 70 mm[Hg] [facility] Systolic blood pressure 162 mm[Hg] 162 mm[Hg] [facility] Oxygen saturation in Arterial blood by Pulse oximetry 99 % 99 % [facility] Body mass index (BMI) [Ratio] 23.57 kg/m2 23.57 kg/m2 [facility] Body weight 70.308 kg 70.308 kg [facility] Body height 172.7 cm 172.7 cm [facility] Heart rate 83 /min 83 /min [facility] Diastolic blood pressure 88 mm[Hg] 88 mm[Hg] [facility] Systolic blood pressure 128 mm[Hg] 128 mm[Hg] [facility] Oxygen saturation in Arterial blood by Pulse oximetry 98 % 98 % [facility] ([facility]) Body temperature 36.8 Kemi 36.8 Kemi [facility] ( [facility]) Body temperature 98.2 [degF] 98.2 [degF] [facility] ([facility]) Heart rate 70 /min 70 /min [facility] ([facility]) Diastolic blood pressure 70 mm[Hg] 70 mm[Hg] [facility] ([facility]) Systolic blood pressure 146 mm[Hg] 146 mm[Hg] [facility] ([facility]) Body weight 179.00 [lb_av] 179.00 [lb_av] [facility] ([facility]) Oxygen saturation in Arterial blood by Pulse oximetry 96 % 96 % [facility] ([facility]) Body temperature 36.4 Kemi 36.4 Kemi [facility] ( [facility]) Body temperature 97.6 [degF] 97.6 [degF] [facility] ([facility]) Heart rate 87 /min 87 /min [facility] ([facility]) Diastolic blood pressure 100 mm[Hg] 100 mm[Hg] [facility] ([facility]) Manual taken in both arms, same number x 3 Systolic blood pressure 230 mm[Hg] 230 mm[Hg] [facility] ([facility]) Manual taken in both arms, same number x 3 Body mass index (BMI) [Ratio] 26.8 kg/m2 26.8 k g/m2 [facility] ([facility]) Body weight 171.00 [lb_av] 171.00 [lb_av] [facility] ([facility]) Body height 67.00 [in_i] 67.00 [in_i] [facility] 5'7" Body temperature 36.3 Kemi 36.3 Kemi [facility] ( [facility]) Body temperature 97.4 [degF] 97.4 [degF] [facility] ([facility]) Heart rate 80 /min 80 /min [facility] ([facility]) Diastolic blood pressure 102 mm[Hg] 102 mm[Hg] [facility] ([facility]) Systolic blood pressure 168 mm[Hg] 168 mm[Hg] [facility] ([facility]) Body mass index (BMI) [Ratio] 24.7 kg/m2 24.7 k g/m2 [facility] ([facility]) Body weight 158.00 [lb_av] 158.00 [lb_av] [facility] ([facility]) Body height 67 [in_i] 67 [in_i] [facility] 5'7" Body temperature 97.4 [degF] 97.4 [degF] [facility] ([facility]) Heart rate 80 /min 80 /min [facility] ([facility]) Diastolic blood pressure 102 mm[Hg] 102 mm[Hg] [facility] ([facility]) Systolic blood pressure 168 mm[Hg] 168 mm[Hg] [facility] ([facility]) Body mass index (BMI) [Ratio] 24.7 kg/m2 24.7 k g/m2 [facility] ([facility]) Body weight 158.00 [lb_av] 158.00 [lb_av] [facility] ([facility]) Patient Treatment Plan of Care Planned Activity Planned Date Details Description Data Source (s) Furosemide 40 MG Oral Tablet 09/01/2020 12:00:00 AM [facility] Hydralazine Hydrochloride 10 MG Oral Tablet 09/01/2020 12:00:00 AM EST [facility] Hydralazine Hydrochloride 10 MG Oral Tablet 08/13/2020 12:00:00 AM EST [facility] Hydralazine Hydrochloride 10 MG Oral Tablet 06/07/2020 12:00:00 AM EDT [facility] Spironolactone 25 MG Oral Tablet 06/02/2020 12:00:00 AM EDT [facility] Furosemide 40 MG Oral Tablet 06/02/2020 12:00:00 AM EDT [facility] Vitamin B 12 1 MG/ML Injectable Solution 05/06/2020 12:00:00 AM EDT [facility] Omeprazole 20 MG Delayed Release Oral Capsule 04/10/2020 12:00:00 A M EDT [facility] Isosorbide Dinitrate 20 MG Oral Tablet [facility]
[2020-09-24 13:50] LABS: BASO % 0.3 % (0.0-1.0); EOS # 0.1 10^3/uL (0.0-0.5); HEMATOCRIT 31.9 % (42.0-52.0); HEMOGLOBIN 9.9 g/dl (13.5-17.5); LYMPH # 0.6 10^3/uL (1.5-5.0); LYMPH % 10.4 % (24.0-44.0); MEAN CORPUSCULAR HEMOGLOBIN 30.8 pg (27.0-33.0); MEAN CORPUSCULAR VOLUME 99.4 fl (80.0-96.0); MONO # 0.2 10^3/uL (0.0-0.8); MONO % 3.4 % (0.0-5.0); NEUTROPHILS # 4.9 10^3/uL (1.5-8.5); NEUTROPHILS % 84.6 % (36.0-66.0); PLATELET COUNT, AUTOMATED 158 10^3/uL (150-450); RED BLOOD COUNT 3.21 10^6/uL (4.30-6.10); WHITE BLOOD COUNT 5.9 10^3/uL (4.0-10.0)
--- NOTE | 2020-09-24 14:04 | REP ---
INDICATION: Syncope/near-syncope. COMPARISON: Comparison chest x-ray 26 July 2020. TECHNIQUE: Portable upright AP chest radiograph. FINDINGS: Monitoring electrodes are seen. Interstitial markings are mildly prominent. No focal infiltrate is seen. Right hemidiaphragm remains slightly elevated. Borderline heart size. Pulmonary vasculature is cephalized.. IMPRESSION: Borderline heart size. Cephalization of pulmonary vasculature. Slightly prominent interstitial markings.. <Electronically signed by Edmundo Cain > 09/24/20 1400
--- OUTSIDE RECORDS SUMMARY | 2020-09-24 14:12 | CCD ---
Author Author [facility] Organization [facility] Address Unknown Phone Unavailable Care Team Providers Care Internet Sales Consultant Name Role Phone Scarlet Miranda MD Unavailable [...] Unavailable Unavailable Scarlet Miranda MD Unavailable Unavailable Scralet Miranda MD Unavailable Unavailable Scarlet Miranda MD [...] Miranda MD Unavailable Unavailable Fons, M Alma TUBE LANCER Unavailable Unavailable Fons, M Alam TUBE LANCER Unavailable Unavailable Fons, M Alma TUBE LANCER Unavailable Unavailable Fons, M Alma TUBE LANCER Unavailable Unavailable Fons, M Alma TUBE LANCER Unavailable Unavailable Fons, M Alma TUBE LANCER Unavailable Unavailable Fons, M Alma TUBE LANCER Unavailable Unavailable Fons, M Alma TUBE LANCER Unavailable Unavailable Fons, M Alma TUBE LANCER Unavailable Unavailable Fons, M Alma TUBE LANCER Unavailable Unavailable Fons, M Alma TUBE LANCER Unavailable Unavailable Fons, M Alma TUBE LANCER Unavailable Unavailable Fons, M Alma TUBE LANCER Unavailable Unavailable Fons, M Alma TUBE LANCER Unavailable Unavailable Fons, M Alma TUBE LANCER Unavailable Unavailable Fons, M Alma TUBE LANCER Unavailable Unavailable Fons, M Alma TUBE LANCER Unavailable Unavailable Fons, M Alma TUBE LANCER Unavailable Unavailable Fons, M Alma TUBE LANCER Unavailable Unavailable Fons, M Alma TUBE LANCER Unavailable Unavailable Fons, M Alma TUBE LANCER Unavailable Unavailable Fons, M Alma TUBE LANCER Unavailable Unavailable Fons, M Alma TUBE LANCER Unavailable Unavailable Fons, M Alma TUBE LANCER Unavailable Unavailable Fons, M Alma TUBE LANCER Unavailable Unavailable Fons, M Alma TUBE LANCER Unavailable Unavailable Fons, M Alma TUBE LANCER Unavailable Unavailable Fons, M Alma TUBE LANCER Unavailable Unavailable Fons, M Alma TUBE LANCER Unavailable Unavailable Fons, M Alma TUBE LANCER Unavailable Unavailable Fons, M Alma TUBE LANCER Unavailable Unavailable Fons, M Alma TUBE LANCER Unavailable Unavailable Fons, M Alma TUBE LANCER Unavailable Unavailable Fons, M Alma TUBE LANCER Unavailable Unavailable Fons, M Alma TUBE LANCER Unavailable Unavailable Fons, M Alma TUBE LANCER Unavailable Unavailable Fons, M Alma TUBE LANCER Unavailable Unavailable Fons, M Alma TUBE LANCER Unavailable Unavailable Fons, M Alma TUBE LANCER Unavailable Unavailable Fons, M Alma TUBE LANCER Unavailable Unavailable Fons, M Alma TUBE LANCER Unavailable Unavailable Fons, M Alma TUBE LANCER Unavailable Unavailable Fons, M Alma TUBE LANCER Unavailable Unavailable Fons, M Alma TUBE LANCER Unavailable Unavailable Fons, M Alma TUBE LANCER Unavailable Unavailable Fons, M Alma TUBE LANCER Unavailable Unavailable Fons, M Alma TUBE LANCER Unavailable Unavailable Fons, M Alma TUBE LANCER Unavailable Unavailable Fons, M Alma TUBE LANCER Unavailable Unavailable Fons, M Alma TUBE LANCER Unavailable Unavailable Fons, M Alma TUBE LANCER Unavailable Unavailable Fons, M Alma TUBE LANCER Unavailable Unavailable Fons, M Alma TUBE LANCER Unavailable Unavailable Fons, M Alma TUBE LANCER Unavailable Unavailable Jose Martin ZARCO MD Unavailable [...] is protected by Article 27-F of the [facility] Public Health law. If you continue you may have access to information: Regarding HIV / AIDS; Provided by facilities licensed or operated by the [facility] Office of Mental Health; or Provided by the [facility] Office for People With Developmental Disabilities. If such information is present, then the following [facility] mandated warning applies: This information has [...] law may result in a fine or fci sentence or both. A general authorization for the release of medical or other information is NOT sufficient authorization for further disc losure. Family History Family Member Name Family Member Gender Family Member Status Date o f Status Description Data Source(s) Unknown Male Problem [facility] ([facility]) Encounters Encounter Providers Location Date Indications Data Source(s ) Outpatient Attender: Alma Sheriff FNPReferrer: Alma [email or web address] 09/01/2020 12:00:00 AM EST - 09/01/2020 02:42:[address] [facility] Outpatient Referrer: Alma [email or web address] 09/01/2020 12:00:[address] [facility] Outpatient Attender: Alma [email or web address] 0 10:49:04 AM EST - 06/29/2020 11:46:15 AM [facility] Outpatient Attender: BEL ZARCO MD [facility] Internal Med at [facility] 06/13/2020 01:20:00 PM EDT [facility] Outpatient Attender: Scarlet Miranda MD [email or web address] 05/26 12:00:00 AM EDT - 06/07/2020 12:07:41 PM EDT [facility] Outpatient Attender: BEL ZARCO MD CMP Internal Med at [facility] 03/31/2020 11:00:00 AM EDT [facility] Outpatient Attender: BEL ZARCO MD CMP Internal Med at [facility] 01/06/2020 02:20:00 PM EDT [facility]) Outpatient Attender: BEL ZARCO MD CMP Internal Med at [facility] 12/07/2019 01:56:00 PM EDT [facility] Outpatient Attender: BEL ZARCO MD CMP Internal Med at [facility] 11/04/2019 12:57:00 PM EDT [facility] Outpatient Attender: BEL ZARCO MD CMP Internal Med at [facility] 10/09/2019 10:44:00 AM EST [facility] Outpatient Attender: BEL ZARCO MD CMP Internal Med at [facility] 09/22/2019 12:20:00 PM EST [facility] Outpatient Attender: BEL ZARCO MD CMP Internal Med at [facility] 09/04/2019 09:35:00 AM EST [facility]) Medications Medication Brand Name Start Date Product Form Dose Route Admi nistrative Instructions Pharmacy Instructions Status Indications Reaction Description Data Source(s) Furosemide 40 MG Oral Tablet furosemide (LASIX) 40 MG tablet furosemide (LASIX) 40 MG tablet 09/01/2020 12:00:00 AM EST 40 mg Oral activ e Take 1 tablet (40 mg total) by mouth daily [facility] Hydralazine Hydrochloride 10 MG Oral Tab let hydrALAZINE (APRESOLINE) 10 MG tablet hydrALAZINE (APRESOLINE) 10 MG tablet 09/01/2020 12:00:00 AM EST 10 mg Oral active Take 1 tablet (10 mg total) by mouth 3 (three) times a day [facility] Hydralazine Hydrochloride 10 MG Oral Tab let hydrALAZINE (APRESOLINE) 10 MG tablet hydrALAZINE (APRESOLINE) 10 MG tablet 08/13/2020 12:00:[address] [facility] 10 mg 07/07/2020 12:00:00 AM EST tablet [...] 12:00:00 AM EDT ORAL active M [facility]) Isosorbide Dinitrate 20 MG Oral Tablet Isosorbide Dinitrate 06/13/2020 12:00:00 AM EDT ORAL completed [facility] 10 mg 06/08/2020 12:00:00 AM EDT tablet 90 TAKE ONE TABLET BY MOUTH THREE TIMES A DAY TAKE ONE TABLET BY MOUTH THREE TIMES A DAY SOLD: 06/10/2020 [facility] Hydralazine Hydrochloride 10 MG Oral Tab let hydrALAZINE (APRESOLINE) 10 MG tablet hydrALAZINE (APRESOLINE) 10 MG tablet 06/07/2020 12:00:00 AM EDT 10 mg Oral active Take 1 tablet (10 mg total) by mouth 3 (three) times a day [facility] 40 mg 06/02/2020 12:00:00 AM EDT tablet 60 TAKE 1 TABLET [40MG] BY MOUTH TWO TIMES A DAY AT 9:00AM AND 5:00PM TAKE 1 TABLET [40MG] BY MOUTH TWO TIMES A DAY AT 9:00AM AND 5:00PM SOLD: 06/03/2020 [facility] 20 mg 06/02/2020 12:00:00 AM EDT tablet 60 TAKE 1 TABLET [20MG] BY MOUTH TWO TIMES A DAY TAKE 1 TABLET [20MG] BY MOUTH TWO TIMES A DAY SOLD: 06/03/2020 [facility] Spironolactone 25 MG Oral Tablet spironolactone (ALDAC TONE) 25 MG tablet spironolactone (ALDACTONE) 25 MG tablet 06/02/2020 12:00:00 AM EDT 0.5 {tbl} Oral active Take 0.5 tablets by mouth daily [facility] Furosemide 40 MG Oral Tablet furosemide (LASIX) 40 MG tablet furosemide (LASIX) 40 MG tablet 06/02/2020 12:00:00 AM EDT 60 mg Oral activ e Take 60 mg by mouth daily [facility] 25 mg 06/02/2020 12:00:00 AM EDT tablet 15 TAKE 1/2 TABLET BY MOUTH DAILY TAKE 1/2 TABLET BY MOUTH DAILY SOLD: 06/03/2020 [facility] Vitamin B 12 1 MG/ML Injectable Solution cyanocobalami n 1000 MCG/ML injection cyanocobalamin 1000 MCG/ML injection 05/06/2020 12:00:00 AM EDT active INJECT 1ML INTRAMUSCULARLY EVERY 10 DAYS [facility] 20 mg 04/11/2020 12:00:00 AM EDT capsule,delayed [...] MG capsule 04/10/2020 12:00:[address] [facility] 24 HR Isosorbide Mononitrate 30 MG Extended Release Or al Tablet Isosorbide Mononitrate ER 03/31/2020 12:00:00 AM EDT ORAL complete d [facility] ([facility]) 24 HR Isosorbide Mononitrate 30 [...] 1000 mcg) 09/22/2019 12:00:[address] [facility] ([facility]) Medication administered onsite Therapeutic, Prophylactic Or Diagnostic Injection Subq/Im 09/22/2019 12:00:00 AM EST completed [facility] ([facility]) Medication administered onsite 1,000 mcg/mL 03/25/2019 [...] by mouth 2 (two) times a day [facility] Insurance Providers Payer name Policy type / Coverage type Policy ID Covered constitution party ID Covered constitution party's relationship to wright Policy Wright Plan Information MEDICARE [id number] SP [id number] [employer] GE PARTB [id number] SP [id number] [facility] [id number] MEDICARE [id number] [facility] [id number] Elsa [id number] MEDICARE [id number] Elsa [id number] MEDICARE C [id number] S [id number] UNITED HE[employer]CARE GE PAR O [id number] S [id number] [facility] Commercial Medigap Part B [id number] Self [id number] Medicare Railroad Medicare Primary [id number] Self [id number] Medicare Railroad Medicare Primary [id number] Self [id number] Medicare Railroad Medicare Primary [id number] Self [id number] United [employer] Medigap Part B [id number] Self [id number] Medicare Railroad Medicare Primary [id number] Self [id number] MEDICARE [id number] SP [id number] Medicare [address] Medicare Primary [id number] Self [id number] Medicare Railroad Medicare Primary [id number] Self [id number] UNITED [employer] GE PARTB [id number] SP [id number] [place] MEDICARE C [id number] S [id number] UNITED [employer]CARE GE PARTB [id number] SP [id number] United Healthcare Medigap Part B Self Medicare Railroad Medicare Primary Self [facility] INDEMNITY O [id number] S [id number] MEDICARE M [id number] S [id number] [employer] O [id number] S [id number] MEDICARE -O/P [id number] Problems, Conditions, and Diagnoses Code Display Name Description Problem Type Effective Dates Data Source(s) I10 Essential hypertension Essential hypertension [id number] 06/07/2020 12:00:00 AM EDT [facility] 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 4 chronic kidney disease [id number] 06/07/2020 12:00:00 AM EDT [facility] 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 [id number] 06/07/2020 12:00:00 AM EDT [facility] [id number] Chronic kidney disease stage 3 Chronic kidney disease stage 3 Problem 08/02/2019 12:00:00 AM EST [facility] ([facility]) I10 Essential (primary) hypertension Essential (primary) h ypertension Diagnosis 06/29/2020 10:49:04 AM EST [facility] N18.4 Chronic kidney disease, stage 4 (severe) Chronic kidney disease, stage 4 (severe) Diagnosis 06/29/2020 10:49:04 AM EST [facility] 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 Chronic combined systolic (congestive) a Diagnosis 06/29/2020 10:49:04 AM EST [facility] Surgeries/Procedures Procedure Description Date Indications Data Source(s) POCT AMB EKG POCT AMB EKG Routine 09/01/2020 4:39 PM EST Chronic combined systolic and diastolic congestive heart failure 09/01/2020 09:39:00 PM EST Chronic combined systolic and diastolic congestive heart failure [facility] Chronic combined systolic and diastolic congestive heart failure BLOOD COUNT COMPLETE AUTO&AUTO DIFRNTL WBC COUNT CBC AND DIFFER ENTIAL Routine 07/26/2020 07/26/2020 12:00:[address] [facility] HEPATIC FUNCTION PANEL HEPATIC FUNCTION PANEL Routine 07/26/2020 07/26/2020 12:00:00 AM EST [facility] BASIC METABOLIC PANEL CALCIUM TOTAL BASIC METABOLIC PANEL Routine 07/26/2020 07/26/2020 12:00:00 AM EST [facility] BLOOD COUNT COMPLETE AUTO&AUTO DIFRNTL WBC COUNT CBC AND DIFFER ENTIAL Routine 06/16/2020 06/16/2020 12:00:[address] [facility] HEPATIC FUNCTION PANEL HEPATIC FUNCTION PANEL Routine 06/16/2020 06/16/2020 12:00:00 AM EDT [facility] BASIC METABOLIC PANEL CALCIUM TOTAL BASIC METABOLIC PANEL Routine 06/16/2020 06/16/2020 12:00:00 AM EDT [facility] Electrocardiogram Complete 03/31/2020 12:00:00 AM EDT [facility] ([facility]) Therapeutic, Prophylactic Or Diagnostic Injection Subq/Im 09/22/2019 12:00:00 AM EST [facility]) Results ID Date Data Source [id number] 09/02/2020 05:29:15 PM EST [facility] Name Value Range Interpretation Code Description Data Devi rce(s) Supporting Document(s) &PDF [facility] [id number]/[id number] oRX [file] AgICAgICAgICAgICAgICAgICAgICAgICAgICAgICAg ICAgICAgICAgICAgICAgICAgICAgICAgICAgICAgICAgICAgICAgICAgICAgICAgICAgICAgICAgICAg ICAgICAgICANCiAgICAgICAgICAgICAgICAgICAgICAgICAgICAgICAgICAgICAgICAgICAgICAgICAg ICAgICAgICAgICAgICAgICAgICAgICAgICAgICAgIC AgICAgICAgICAgICAgICAgICANCiAgICAgICAgICAgICAgICAgICAgICAgICAgICAgICAgICAgICAgIC AgICAgICAgICAgICAgICAgICAgICAgICAgICAgICAgICAgICAgICAgICAgICAgICAgICAgICAgICAgIC ANCiAgICAgICAgICAgICAgICAgICAgICAgICAgICAg ICAgICAgICAgICAgICAgICAgICAgICAgICAgICAgICAgICAgICAgICAgICAgICAgICAgICAgICAgICAg ICAgICAgICAgICANCiAgICAgICAgICAgICAgICAgICAgICAgICAgICAgICAgICAgICAgICAgICAgICAg ICAgICAgICAgICAgICAgICAgICAgICAgICAgICAgIC AgICAgICAgICAgICAgICAgICAgICANCiAgICAgICAgICAgICAgICAgICAgICAgICAgICAgICAgICAgIC AgICAgICAgICAgICAgICAgICAgICAgICAgICAgICAgICAgICAgICAgICAgICAgICAgICAgICAgICAgIC AgICANCiAgICAgICAgICAgICAgICAgICAgICAgICAg ICAgICAgICAgICAgICAgICAgICAgICAgICAgICAgICAgICAgICAgICAgICAgICAgICAgICAgICAgICAg ICAgICAgICAgICAgICANCiAgICAgICAgICAgICAgICAgICAgICAgICAgICAgICAgICAgICAgICAgICAg ICAgICAgICAgICAgICAgICAgICAgICAgICAgICAgIC AgICAgICAgICAgICAgICAgICAgICAgICANCiAgICAgICAgICAgICAgICAgICAgICAgICAgICAgICAgIC AgICAgICAgICAgICAgICAgICAgICAgICAgICAgICAgICAgICAgICAgICAgICAgICAgICAgICAgICAgIC AgICAgICANCiAgICAgICAgICAgICAgICAgICAgICAg ICAgICAgICAgICAgICAgICAgICAgICAgICAgICAgICAgICAgICAgICAgICAgICAgICAgICAgICAgICAg ICAgICAgICAgICAgICAgICANCjw/fBSqS0tnnSQxotN8L0ytRp8WOk4VWY1ej2IzTLLhHIocopMeDqhB YmPdTMUcRrqINxx1UEixAQ6KxCAcF5FjG7VpHSgcRY 9AUQHzXXHhgZEsOEPrHKVnDqO1YJFrNPkvWZ8WwIUpQRirZOIwMDGdUvItVTMjHE3RZNGwE573whYyBo 1KYv4HFuWwHJ1hhe7KRqFtHXJmNchJNbs2LRxkDM5YpMBaW0DvkCDkk0iPStXxE4FVGUZ2MBUwUb0SUK GnQiRbUPIhOFtvED3vDSKeYXHTsLhjwrH1HR5XNF7w ozBmIW3QGjUbKk9sRy8QEeNhN5XwF2LrXDQcAFSQQBslCM3PDTOwSXR0HSTfWTOpXPOBRjLyT73gDU0W M8Lwa29mZvD0AFUxMzKfWBcxEX51wFotjjSrkDAgdUzgAZ0VCn7+DQplbmRvYmoNCnhyZWYNCjAgMjIN GrNqXJHpNCOlWNRmIiJ7GpKgCm8WZFSpGASjUZChPp OgHODpCXOvSAvmQBNkXTO5JrzwREEcVIKhPJ8GWuSxECPwTyY2MrHsALPvSWMaab1KZZZyOSHtEXD0IR VaILIqCZCfNOvqJMIhALKkPPW2WTJqRTYxOI3TKtTjXSTyDKN2BYStXVGoTJYxhw1DKKPqOLGmCHttRF YdLYGuYVTbKIcdVZJnFRZ8CSHxAPFyLPQfGN7LZiYa RZCpMUZ4YqUzHGGiEAPmzq9HVCXrUHUxTzM6CqApFEJjQRTbXSebEEWuPQP1YkO8PWAaUMZmQY8AWqAi WJZvBKhwFZpbKLVxLOQqzm5IFCJrRVHaNHXgMTLhBEMuZSCeVFcwTPYtJFK2HKi8UCKlDQFfSJ1KWxAv IJEnNBp6VZPmEVBuHFDiau5YVVIgBLDmMNo2WxVhLC UlTVWuDWguPAXqTBX5WSZdFLOfZUXmRW9RWuPqPKHmECY9WwKnPUApIWNetk9NWPRsOUIlZJA8KKGiMD AiUMYiFFszUHAhVND9ENglELCzDLIkIV7JMsVdRMGuMaN0YtUkRLDtWAEpin9UeFElkPookc5FROzUOd 9YjLsaNMNpCZnkZc6zsBJfSLFlEOQDPq4FbqGlFFGh CUUADCryPRWxBHZ2DSG3RDYsWmJjFpKeUmH2UvLjUwSsFdTbGLFuEBAuPyY9DRM8NZLdWQWnCDNtVZEz Mzz3G1UjZYO7SvLyHEQ5LIO+UC8kFMb+As3Cb6NtwrX0cgWfXObmNZhsCy7JPHPMK2LPNe== ID Date Data Source [id number] 07/26/2020 04:04:00 PM EST [facility] Name Value Range Interpretation Code Description Data Devi rce(s) Supporting Document(s) CPK Creatine Phosphokinase 167 U/L 39-308 Kailee l (applies to non-numeric results) [facility] ([facility]) CK-MB Value Mass 5.2 ng/mL Above high normal [facility] MB/CK Relative Index 3.11 Normal (applies to non-num jerrod results) [facility] ([facility]) <content>DIAGNOSIS CRITERIA</content>
<content>MMB ng/ml Relative Index (RI)</content>
<content>NON-AMI < or = 5 N/A</content>
<content>[place]ONE > 5 < or = 4</content>
<content>AMI > 5 > 4</content>
<content></content> Troponin I 0.04 ng/mL [facility] <content>Troponin I Reference Interval f or Siemens [place] LOCI:</content>
<content></content>
<content>99th Percentile= 0.00-0.045 ng/ml</content>
<content></content>
<content>Risk Stratification:</content>
<content><= 0.10 ng/ml Decreased Risk for Adverse Clinical</content>
<content>Events.</content>
<content>0.10-1.50 ng/ml Increased Risk for Adverse Clinical</content>
<content>Events. Evaluation of additional</content>
<content>criterion and/or repeat testing in 2-6</content>
<content>hours is suggested to rule out myocardial</content>
<content>damage.</content>
<content>>= 1.50 ng/ml Indicative of Myocardial Injury.</content>
<content></content> ID Date Data Source [id number] 07/26/2020 01:12:00 PM EST [facility] ([facility]) Name Value Range Interpretation Code Description Data Devi rce(s) Supporting Document(s) Natriuretic peptide.B prohormone N-Terminal [Mass/volu me] in Serum or Plasma 2213 pg/mL Above high normal [facility] ([facility]) Lipase [Enzymatic activity/volume] in Serum or Plasma 158 U/L 73-393 Normal (applies to non-numeric results) [facility] Thyrotropin [Units/volume] in Serum or Plasma 5.180 uIU/ML 0. 358-3.740 Above high normal [facility] ([facility]) ID Date Data Source [id number] 07/26/2020 01:12:00 PM EST [facility] ([facility]) Name Value Range Interpretation Code Description Data Devi rce(s) Supporting Document(s) Glucose, Fasting 110 mg/dL 70-100 Above high normal [facility] ([facility]) Blood Urea Nitrogen 61 mg/dL 7-18 Above high normal [facility] ([facility]) Creatinine For GFR 3.31 mg/dL 0.70-1.30 Above high normal [facility] ([facility]) Glomerular Filtration Rate 18.9 Below low normal [facility] ([facility]) <content>Units are mL/min/1.73 m2</content>
<content></content>
<content>Chronic Kidney Disease Staging per NKF:</content>
<content></content>
<content>Stage I & II GFR >=60 Normal to Mildly Decreased</content>
<content>Stage III GFR 30- 59 Moderately Decreased</content>
<content>Stage IV GFR 15-29 Severely Decreased</content>
<content>Stage V GFR <15 Very Little GFR Left</content>
<content>ESRD GFR <15 on BICYCLE REPAIRER</content>
<content></content> Sodium Level 137 meq/L 136-145 Normal (applies to non-numeric res ults) [facility] ([facility]) Chloride Level 106 meq/L 98-107 Normal (applies to non-numeric r esults) [facility] ([facility]) Potassium Serum 4.7 meq/L 3.5-5.1 Normal (applies to non-numeric results) [facility] ([facility]) Carbon Dioxide Level 28 meq/L 21-32 Normal (applies to non-num jerrod results) [facility] ([facility]) Calcium Level 8.2 mg/dL 8.8-10.2 Below low normal [facility] ([facility]) Anion Gap 3 meq/L 8-16 Below low normal [facility] ([facility] ID Date Data Source [id number] 07/26/2020 01:12:00 PM EST [facility] ([facility]) Name Value Range Interpretation Code Description Data Devi rce(s) Supporting Document(s) Ast/Sgot 27 U/L 7-37 Normal (applies to non-numeric resul ts) [facility] ([facility]) Alt/SGPT 29 U/L 12-78 Normal (applies to non-numeric resul ts) [facility] ([facility]) Alkaline Phosphatase 88 U/L 45-117 Normal (applies to non-num jerrod results) [facility] ([facility]) Bilirubin,Total 0.3 mg/dL 0.2-1.0 Normal (applies to non-numeric results) [facility] ([facility]) Bilirubin,Direct 0.1 mg/dL 0.0-0.2 Normal (applies to non-numeric results) [facility]) Albumin 2.9 GM/DL 3.2-5.[address] [facility] ([facility]) Albumin/Globulin Ratio 0.9 Normal (applies to non-n umeric results) [facility] ([facility]) Total Protein 6.0 GM/DL 6.4-8.2 Below low normal [facility] ([facility]) ID Date Data Source [id number] 07/26/2020 01:12:[address] [facility] ([facility]) Name Value Range Interpretation Code Description Data Devi rce(s) Supporting Document(s) CPK Creatine Phosphokinase 165 U/L 39-308 Kailee l (applies to non-numeric results) [facility] ([facility]) CK-MB Value Mass 5.2 ng/mL Above high normal [facility] MB/CK Relative Index 3.15 Normal (applies to non-num jerrod results) [facility]) <content>DIAGNOSIS CRITERIA</content>
<content>MMB ng/ml Relative Index (RI)</content>
<content>NON-AMI < or = 5 N/A</content>
<content>[place]ONE > 5 < or = 4</content>
<content>AMI > 5 > 4</content>
<content></content> Troponin I 0.03 ng/mL Normal (applies to non-numeric resul ts) [facility]) <content>Troponin I Reference Interval f or Siemens [place] LOCI:</content>
<content></content>
<content>99th Percentile= 0.00-0.045 ng/ml</content>
<content></content>
<content>Risk Stratification:</content>
<content><= 0.10 ng/ml Decreased Risk for Adverse Clinical</content>
<content>Events.</content>
<content>0.10-1.50 ng/ml Increased Risk for Adverse Clinical</content>
<content>Events. Evaluation of additional</content>
<content>criterion and/or repeat testing in 2-6</content>
<content>hours is suggested to rule out myocardial</content>
<content>damage.</content>
<content>>= 1.50 ng/ml Indicative of Myocardial Injury.</content>
<content></content> ID Date Data Source [id number] 07/26/2020 01:12:00 PM EST [facility] ([facility]) Name Value Range Interpretation Code Description Data Devi rce(s) Supporting Document(s) aPTT in Platelet poor plasma by Coagulation assay 26.5 s 24.2-38.5 Normal (applies to non-numeric results) [facility] ID Date Data Source [id number] 07/26/2020 01:12:00 PM EST [facility] ([facility]) Name Value Range Interpretation Code Description Data Devi rce(s) Supporting Document(s) Prothrombin Time 13.0 s 12.5-14.3 Normal (applies to non-numeric results) [facility] ([facility]) Inr 0.96 Normal (applies to non-numeric resul ts) [facility] ([facility]) THERAPUTIC HUMAN INR VALUES INDICATIONS NORMAL RANGES PROPHYLAXIS/TREATMENT OF: VENOUS THROMBOSIS 2.0-3.0 PULMONARY EMBOLISM 2.0-3.0 PREVENTION OF SYSTEMIC EMBOLISM FROM: TISSUE HEART VALVES 2.0-3.0 ACUTE MYOCARDIAL INFARCTION 2.0-3.0 VALVULAR HEART DISEASE 2.0-3.0 ATRIAL FIBRILLATION 2.0-3.0 MECHANICAL VALVES(HIGH RISK) 2.5-3.5 RECURRENT MYOCARDIAL INFARCTION 2.5-3.5 ID Date Data Source [id number] 07/26/2020 01:12:00 PM EST [facility] ([facility]) Name Value Range Interpretation Code Description Data Devi rce(s) Supporting Document(s) White Blood Count 4.8 10 4.0-10.0 Normal (applies to non-numeri c results) [facility] ([facility]) Red Blood Count 3.83 10 4.30-6.10 Below low normal [facility] E[facility] ([facility]) Hemoglobin 11.5 g/dL 13.5-17.5 Below low normal [facility] ( [facility]) Hematocrit 36.0 % 42.0-52.0 Below low normal [facility] ([facility]) Mean Corpuscular Volume 94.0 fl 80.0-96.0 Normal ( applies to non-numeric results) [facility] ([facility]) Mean Corpuscular HGB Conc 31.9 g/dL 32.0-36.5 Below low normal [facility] ([facility]) Mean Corpuscular Hemoglobin 30.0 pg 27.0-33.0 Norm al (applies to non-numeric results) [facility] ([facility]) Red Cell Distribution Width 14.1 % 11.5-14.5 Norm al (applies to non-numeric results) [facility] ([facility]) Platelet Count, Automated 170 10 150-450 Normal (applies to non-numeric results) [facility] ([facility]) Neutrophils % 72.5 % 36.0-66.0 Above high normal MEDE NT ([facility]) [place] % 6.6 % 0.0-5.0 Above high normal [facility] ([facility]) Lymph % 17.6 % 24.0-44.0 Below low normal [facility] ([facility]) Eos % 2.7 % 0.0-3.0 Normal (applies to non-numeric resul ts) [facility] ([facility]) Baso % 0.4 % 0.0-1.0 Normal (applies to non-numeric resul ts) [facility] ([facility]) Immature Granulocyte % 0.2 % 0-3.0 Normal (applies to non-n umeric results) [facility] ([facility]) Nucleated Red Blood Cell % 0.0 % 0-0 Normal (applies to n on-numeric results) [facility] ([facility]) Neutrophils # 3.5 10 1.5-8.5 Normal (applies to non-numeric re sults) [facility] ([facility]) [place] # 0.3 10 0.0-0.8 Normal (applies to non-numeric resul ts) [facility] ([facility]) Lymph # 0.9 10 1.5-5.0 Below low normal [facility] ([facility]) Eos # 0.1 10 0.0-0.5 Normal (applies to non-numeric resul ts) [facility] Baso # 0.0 10 0.0-0.2 Normal (applies to non-numeric resul ts) [facility] ([facility]) ID Date Data Source [id number] 06/16/2020 08:41:[address] [facility] ([facility]) Name Value Range Interpretation Code Description Data Devi rce(s) Supporting Document(s) Glucose, Fasting 92 mg/dL 70-100 Normal (applies to non-numeric results) [facility] ([facility]) Blood Urea Nitrogen 56 mg/dL 7-[address] [facility] ([facility]) Glomerular Filtration Rate 20.[address] [facility] ([facility]) <content>Units are mL/min/1.73 m2</content>
<content></content>
<content>Chronic Kidney Disease Staging per NKF:</content>
<content></content>
<content>Stage I & II GFR >=60 Normal to Mildly Decreased</content>
<content>Stage III GFR 30- 59 Moderately Decreased</content>
<content>Stage IV GFR 15-29 Severely Decreased</content>
<content>Stage V GFR <15 Very Little GFR Left</content>
<content>ESRD GFR <15 on BICYCLE REPAIRER</content>
<content></content> Creatinine For GFR 3.05 mg/dL 0.70-1.[address] [facility] ([facility]) Sodium Level 138 meq/L 136-145 Normal (applies to non-numeric res ults) [facility] ([facility]) Chloride Level 102 meq/L 98-107 Normal (applies to non-numeric r esults) [facility] ([facility]) Potassium Serum 4.4 meq/L 3.5-5.1 Normal (applies to non-numeric results) [facility] ([facility]) Carbon Dioxide Level 30 meq/L 21-32 Normal (applies to non-num jerrod results) [facility] ([facility]) Anion Gap 6 meq/L 8-[address] [facility] ([facility]) Ast/Sgot 22 U/L 7-37 Normal (applies to non-numeric resul ts) [facility] ([facility]) Calcium Level 8.5 mg/dL 8.8-10.2 Below low normal [facility] T ([facility]) Alkaline Phosphatase 80 U/L 45-117 Normal (applies to non-num jerrod results) [facility] ([facility]) Alt/SGPT 26 U/L 12-78 Normal (applies to non-numeric resul ts) [facility] ([facility]) Bilirubin,Total 0.4 mg/dL 0.2-1.0 Normal (applies to non-numeric results) [facility] ([facility]) Total Protein 6.5 GM/DL 6.4-8.2 Normal (applies to non-numeric re sults) [facility]) Albumin 3.2 GM/DL 3.2-5.2 Normal (applies to non-numeric resul ts) [facility] ([facility]) Albumin/Globulin Ratio 1.0 Normal (applies to non-n umeric results) [facility] ([facility]) ID Date Data Source [id number] 06/16/2020 08:41:[address] [facility] ([facility]) Name Value Range Interpretation Code Description Data Devi rce(s) Supporting Document(s) White Blood Count 4.7 10 4.0-10.0 Normal (applies to non-numeri c results) [facility]) Red Blood Count 3.89 10 4.30-6.10 Below low normal [facility] ([facility]) Hemoglobin 11.6 g/dL 13.5-17.5 Below low normal [facility] ( [facility]) Hematocrit 37.7 % 42.0-52.0 Below low normal [facility] Mean Corpuscular Volume 96.9 fl 80.0-96.0 Above high normal [facility] ([facility]) Mean Corpuscular Hemoglobin 29.8 pg 27.0-33.0 Norm al (applies to non-numeric results) [facility] ([facility]) Mean Corpuscular HGB Conc 30.8 g/dL 32.0-36.5 Below low normal [facility] ([facility]) Red Cell Distribution Width 13.0 % 11.5-14.5 Norm al (applies to non-numeric results) [facility] ([facility]) Neutrophils % 68.6 % 36.0-66.0 Above high normal [facility] NT ([facility]) Platelet Count, Automated 149 10 150-450 Below low normal [facility] ([facility]) [place] % 6.4 % 0.0-5.0 Above high normal [facility] ([facility]) Lymph % 19.9 % 24.0-44.0 Below low normal [facility] ([facility]) Eos % 4.1 % 0.0-3.0 Above high normal [facility] ([facility]) Baso % 0.4 % 0.0-1.0 Normal (applies to non-numeric resul ts) [facility] ([facility]) Immature Granulocyte % 0.6 % 0-3.0 Normal (applies to non-n umeric results) [facility] ([facility]) Nucleated Red Blood Cell % 0.0 % 0-0 Normal (applies to n on-numeric results) [facility] ([facility]) Neutrophils # 3.2 10 1.5-8.5 Normal (applies to non-numeric re sults) [facility] ([facility]) Lymph # 0.9 10 1.5-5.0 Below low normal [facility] ([facility]) [place] # 0.3 10 0.0-0.8 Normal (applies to non-numeric resul ts) [facility] ([facility]) Eos # 0.2 10 0.0-0.5 Normal (applies to non-numeric resul ts) [facility] ([facility]) Baso # 0.0 10 0.0-0.2 Normal (applies to non-numeric resul ts) [facility] ([facility]) ID Date Data Source [id number] 06/16/2020 08:41:00 AM EDT [facility] ([facility]) Name Value Range Interpretation Code Description Data Devi rce(s) Supporting Document(s) Natriuretic peptide.B prohormone N-Terminal [Mass/volu me] in Serum or Plasma 6362 pg/mL Above high normal [facility] ([facility]) ID Date Data Source [id number] 06/04/2020 09:26:00 AM EDT [facility] ([facility]) Name Value Range Interpretation Code Description Data Devi rce(s) Supporting Document(s) Blood Urea Nitrogen 41 mg/dL 7-18 Above high normal [facility] ([facility]) Glucose, Fasting 91 mg/dL 70-100 Normal (applies to non-numeric results) [facility] ([facility]) Glomerular Filtration Rate 21.4 Below low normal [facility] ([facility]) <content>Units are mL/min/1.73 m2</content>
<content></content>
<content>Chronic Kidney Disease Staging per NKF:</content>
<content></content>
<content>Stage I & II GFR >=60 Normal to Mildly Decreased</content>
<content>Stage III GFR 30- 59 Moderately Decreased</content>
<content>Stage IV GFR 15-29 Severely Decreased</content>
<content>Stage V GFR <15 Very Little GFR Left</content>
<content>ESRD GFR <15 on BICYCLE REPAIRER</content>
<content></content> Creatinine For GFR 2.97 mg/dL 0.70-1.30 Above high normal [facility] ([facility]) Sodium Level 137 meq/L 136-145 Normal (applies to non-numeric res ults) [facility]) Potassium Serum 4.4 meq/L 3.5-5.1 Normal (applies to non-numeric results) [facility] ([facility]) Chloride Level 100 meq/L 98-107 Normal (applies to non-numeric r esults) [facility] ([facility]) Anion Gap 5 meq/L 8-16 Below low normal [facility] ([facility]) Carbon Dioxide Level 32 meq/L 21-32 Normal (applies to non-num jerrod results) [facility] ([facility]) Calcium Level 8.0 mg/dL 8.8-10.2 Below low normal [facility] T ([facility]) ID Date Data Source [id number] 04/01/2020 09:00:00 AM EDT [facility] Name Value Range Interpretation Code Description Data Devi rce(s) Supporting Document(s) Estimated Average Glucose 120 mg/dL 60-110 Above high normal [facility] ([facility]) Hemoglobin A1c 5.8 % Normal (applies to non-numeric r esults) [facility] ([facility]) <content>REFERENCE RANGES:</content><br/ ><content></content>
<content><=5.6% NORMAL</content>
<content>5.7-6.4% SUGGESTS IMPAIRED GLUCOSE METABOLISM/PREDIABETIC</content>
<content>>= 6.5% ABNORMAL</content>
<content></content> ID Date Data Source [id number] 04/01/2020 09:00:00 AM EDT [facility] ([facility]) Name Value Range Interpretation Code Description Data Devi rce(s) Supporting Document(s) White Blood Count 4.4 10 4.0-10.0 Normal (applies to non-numeri c results) [facility] ([facility]) Red Blood Count 3.78 10 4.30-6.10 Below low normal [facility] ([facility]) Hemoglobin 11.6 g/dL 13.5-17.5 Below low normal [facility] ( [facility]) Hematocrit 36.1 % 42.0-52.0 Below low normal [facility] ([facility]) Mean Corpuscular Volume 95.5 fl 80.0-96.0 Normal ( applies to non-numeric results) [facility]) Mean Corpuscular HGB Conc 32.1 g/dL 32.0-36.5 Normal (applies to non-numeric results) [facility] ([facility]) Mean Corpuscular Hemoglobin 30.7 pg 27.0-33.0 Norm al (applies to non-numeric results) [facility] ([facility]) Red Cell Distribution Width 13.5 % 11.5-14.5 Norm al (applies to non-numeric results) [facility] ([facility]) Platelet Count, Automated 156 10 150-450 Normal (applies to non-numeric results) [facility] ([facility]) Neutrophils % 74.0 % 36.0-66.0 Above high normal [facility] NT ([facility]) [place] % 6.6 % 0.0-5.0 Above high normal [facility]) Lymph % 16.2 % 24.0-44.0 Below low normal [facility] ([facility]) Eos % 2.7 % 0.0-3.0 Normal (applies to non-numeric resul ts) [facility] ([facility]) Baso % 0.5 % 0.0-1.0 Normal (applies to non-numeric resul ts) [facility] ([facility]) Immature Granulocyte % 0.0 % 0-3.0 Normal (applies to non-n umeric results) [facility] ([facility]) Nucleated Red Blood Cell % 0.0 % 0-0 Normal (applies to n on-numeric results) [facility] ([facility]) Neutrophils # 3.2 10 1.5-8.5 Normal (applies to non-numeric re sults) [facility] ([facility]) Lymph # 0.7 10 1.5-5.0 Below low normal [facility] [place] # 0.3 10 0.0-0.8 Normal (applies to non-numeric resul ts) [facility] ([facility]) Eos # 0.1 10 0.0-0.5 Normal (applies to non-numeric resul ts) [facility] ([facility]) Baso # 0.0 10 0.0-0.2 Normal (applies to non-numeric resul ts) [facility] ([facility]) ID Date Data Source [id number] 09/24/2019 10:19:00 AM EST [facility] ([facility]) Name Value Range Interpretation Code Description Data Devi rce(s) Supporting Document(s) Hemoglobin A1c 5.6 % Normal (applies to non-numeric r esults) [facility] ([facility]) REFERENCE RANGES: 4.5-5.6% NORMAL 5.7-6.4% SUGGESTS IMPAIRED GLUCOSE META BOLISM >= 6.5% ABNORMAL Estimated Average Glucose 114 mg/dL 60-110 Above high normal [facility] ([facility]) ID Date Data Source [id number] 09/24/2019 10:19:00 AM EST [facility] ([facility]) Name Value Range Interpretation Code Description Data Devi rce(s) Supporting Document(s) Creatinine For GFR 1.92 mg/dL 0.70-1.30 Above high normal [facility] ([facility]) Glucose, Fasting 92 mg/dL 70-100 Normal (applies to non-numeric results) [facility] ([facility]) Blood Urea Nitrogen 28 mg/dL 7-18 [facility] Sodium Level 140 meq/L 136-145 Normal (applies to non-numeric res ults) [facility] ([facility]) Potassium Serum 4.5 meq/L 3.5-5.1 Normal (applies to non-numeric results) [facility] ([facility]) Glomerular Filtration Rate 35.5 Normal (applies to n on-numeric results) [facility]) <content>Units are mL/min/1.73 m2</content>
<content></content>
<content>Chronic Kidney Disease Staging per NKF:</content>
<content></content>
<content>Stage I & II GFR >=60 Normal to Mildly Decreased</content>
<content>Stage III GFR 30- 59 Moderately Decreased</content>
<content>Stage IV GFR 15-29 Severely Decreased</content>
<content>Stage V GFR <15 Very Little GFR Left</content>
<content>ESRD GFR <15 on BICYCLE REPAIRER</content>
<content></content> Carbon Dioxide Level 29 meq/L 21-32 Normal (applies to non-num jerrod results) [facility] ([facility]) Chloride Level 108 meq/L 98-107 Above high normal [facility] ([facility]) Calcium Level 8.2 mg/dL 8.8-10.2 Below low normal [facility] ([facility]) Anion Gap 3 meq/L 8-[address] [facility] ([facility]) Ast/Sgot 17 U/L 7-37 Normal (applies to non-numeric resul ts) [facility] ([facility]) Alkaline Phosphatase 110 U/L 45-117 Normal (applies to non-num jerrod results) [facility] ([facility]) Alt/SGPT 22 U/L 12-78 Normal (applies to non-numeric resul ts) [facility] ([facility]) Bilirubin,Total 0.6 mg/dL 0.2-1.0 Normal (applies to non-numeric results) [facility] ([facility]) Albumin/Globulin Ratio 1.19 1.00-1.93 Normal (applies to non-numeric results) [facility] ([facility]) Albumin 3.2 GM/DL 3.2-5.2 Normal (applies to non-numeric resul ts) [facility] ([facility]) Total Protein 5.9 GM/DL 6.4-8.2 Below low normal [facility] ([facility]) Procedure Social History Code Duration Value Status Description Data Source(s ) Alcohol intake 09/01/2020 12:00:00 AM EST Yes completed [facility] Smoking 09/01/2020 12:00:00 AM EST Former smoker completed Former smoker [facility] Alcohol intake 06/07/2020 12:00:00 AM EDT Yes completed [facility] Smoking 06/07/2020 12:00:00 AM EDT Former smoker completed Former smoker [facility] Vital Signs ID Date Data Source [id number] Name Value Range Interpretation Code Description Data Source(s) Oxygen saturation in Arterial blood by Pulse oximetry 98 % 98 % [facility] Body mass index (BMI) [Ratio] 24.33 kg/m2 24.33 kg/m2 [facility] Body weight 72.576 kg 72.576 kg [facility] Body height 172.7 cm 172.7 cm [facility] Heart rate 80 /min 80 /min [facility] Diastolic blood pressure 70 mm[Hg] 70 mm[Hg] [facility] Systolic blood pressure 162 mm[Hg] 162 mm[Hg] [facility] Oxygen saturation in Arterial blood by Pulse oximetry 99 % 99 % [facility] Body mass index (BMI) [Ratio] 23.57 kg/m2 23.57 kg/m2 [facility] Body weight 70.308 kg 70.308 kg [facility] Body height 172.7 cm 172.7 cm [facility] Heart rate 83 /min 83 /min [facility] Diastolic blood pressure 88 mm[Hg] 88 mm[Hg] [facility] Systolic blood pressure 128 mm[Hg] 128 mm[Hg] [facility] Oxygen saturation in Arterial blood by Pulse [...] blood pressure 146 mm[Hg] 146 mm[Hg] [facility] ([facility]) Body weight 179.00 [lb_av] 179.00 [lb_av] [facility] ([facility]) Oxygen saturation in Arterial blood by Pulse oximetry 96 % 96 % [facility] ([facility]) Body temperature 36.4 Kemi 36.4 Kemi [facility] ( [facility]) Body temperature 97.6 [degF] 97.6 [degF] [facility] ([facility]) Heart rate 87 /min 87 /min [facility] ([facility]) Diastolic blood pressure 100 mm[Hg] 100 mm[Hg] [facility] ([facility]) Manual taken in both arms, same number x 3 Systolic blood pressure 230 mm[Hg] 230 mm[Hg] [facility] ([facility]) Manual taken in both arms, same number x 3 Body mass index (BMI) [Ratio] 26.8 kg/m2 26.8 k g/m2 [facility] ([facility]) Body weight 171.00 [lb_av] 171.00 [lb_av] [facility] ([facility]) Body height 67.00 [in_i] 67.00 [in_i] [facility] 5'7" Body temperature 36.3 Kemi 36.3 Kemi [facility] ( [facility]) Body temperature 97.4 [degF] 97.4 [degF] [facility] ([facility]) Heart rate 80 /min 80 /min [facility] ([facility]) Diastolic blood pressure 102 mm[Hg] 102 mm[Hg] [facility] ([facility]) Systolic blood pressure 168 mm[Hg] 168 mm[Hg] [facility] ([facility]) Body mass index (BMI) [Ratio] 24.7 kg/m2 24.7 k g/m2 [facility] ([facility]) Body weight 158.00 [lb_av] 158.00 [lb_av] [facility] ([facility]) Body height 67 [in_i] 67 [in_i] [facility] 5'7" Body temperature 97.4 [degF] 97.4 [degF] [facility] ([facility]) Heart rate 80 /min 80 /min [facility]) Diastolic blood pressure 102 mm[Hg] 102 mm[Hg] [facility] ([facility]) Systolic blood pressure 168 mm[Hg] 168 mm[Hg] [facility]) Body mass index (BMI) [Ratio] 24.7 kg/m2 24.7 k g/m2 [facility] Body weight 158.00 [lb_av] 158.00 [lb_av] [facility] ([facility]) Patient Treatment Plan of Care Planned Activity Planned Date Details Description Data Source (s) Furosemide 40 MG Oral Tablet 09/01/2020 12:00:[address] [facility] Hydralazine Hydrochloride 10 MG Oral Tablet 09/01/2020 12:00:00 AM EST [facility] Hydralazine Hydrochloride 10 MG Oral Tablet 08/13/2020 12:00:00 AM EST [facility] Hydralazine Hydrochloride 10 MG Oral Tablet 06/07/2020 12:00:00 AM EDT [facility] Spironolactone 25 MG Oral Tablet 06/02/2020 12:00:00 AM EDT [facility] Furosemide 40 MG Oral Tablet 06/02/2020 12:00:00 AM EDT [facility] Vitamin B 12 1 MG/ML Injectable Solution 05/06/2020 12:00:00 AM EDT [facility] Omeprazole 20 MG Delayed Release Oral Capsule 04/10/2020 12:00:00 A M EDT [facility] Isosorbide Dinitrate 20 MG Oral Tablet [facility]
[2020-09-24] MEDS ORDERED: HYDR10TAB PO (14:15)
[2020-09-24 14:27] LABS: CALCIUM LEVEL 8.2 MG/DL (8.8-10.2); CREATININE FOR GFR 3.16 MG/DL (0.70-1.30); GLOMERULAR FILTRATION RATE 19.9 (>35); MAGNESIUM LEVEL 1.3 MG/DL (1.8-2.4); MB/CK RELATIVE INDEX 3.35 (< OR =4); POTASSIUM SERUM 6.1 MEQ/L (3.5-5.1); THYROID STIMULATING HORMONE 5.91 uIU/ML (0.358-3.740); TROPONIN I 0.03 NG/ML (< 0.10)
[2020-09-24] MEDS ORDERED: SODIUM BICARBONATE 8.4% INJ 50 ML SYRINGE IV STA (14:28)
[2020-09-24] MEDS ORDERED: CALCIUM GLUCONATE 1,000 MG in D5W MINI-BAG PLUS 100 ML IV ONE (14:30)
[2020-09-24] MEDS ORDERED: DEXTROSE 50% 50 ML SYRINGE IV STA (14:35)
[2020-09-24 14:41] LABS: RSV AMPLIFICATION NEGATIVE (NEGATIVE)
[2020-09-24] MEDS ORDERED: HumuLIN R (REGULAR) INSULIN (NovoLIN R) **100U/ML** PER UNIT IV ONE (14:45)
[2020-09-24 14:55] LABS: INR 1.07; PROTHROMBIN TIME 14.1 SECONDS (12.5-14.3)
[2020-09-24 14:56] LABS: PARTIAL THROMBOPLASTIN TIME 25.9 SECONDS (24.2-38.5)
[2020-09-24] MEDS ORDERED: DOPamine HCL 400 MG in IV 1 EA IV SCH (15:00)
[2020-09-24 15:27] VITALS: BP 199/85
--- NOTE | 2020-09-24 16:44 | ECGEPIP ---
[facility] - ED Test Date: 2020-09-24 Pat Name: LILIAN GARNER Department: Room: - Gender: Male Credit Checker: : [id number] Requested By: ONEAL LOPEZ Order Number: [id number] Reading MD: Marcia Murphy Measurements Intervals [place] Rate: 45 P: -17 W[place]: 334 QRS: 21 QRSD: 141 T: 9 QT: 526 QTc: 458 Interpretive Statements HIGH GRADE AV BLOCK, CLINICAL CORRELATION INDETERMINATE AXIS RIGHT BUNDLE BRANCH BLOCK, new 07/26/20 SEPTAL MYOCARDIAL INFARCTION, OF INDETERMINATE AGE Electronically Signed on 09-24-2020 16:44:24 EST by Marcia Murphy
== END 2020-09-24 15:39 | disposition short-term general hospital (02) ==
LOC: M ED 12:55
DX: R00.1 Bradycardia, unspecified (principal); I44.39 Other atrioventricular block; I45.10 Unspecified right bundle-branch block; I50.9 Heart failure, unspecified; E11.9 Type 2 diabetes mellitus without complications; E78.5 Hyperlipidemia, unspecified; I10 Essential (primary) hypertension; N18.4 Chronic kidney disease, stage 4 (severe); Z79.899 Other long term (current) drug therapy; Z79.82 Long term (current) use of aspirin; Z88.8 Allergy status to other drugs, medicaments and biological substances
CPT/HCPCS: 36415; 71045; 80048; 82550; 82553; 83735; 83880; 84443; 84484; 85025; 85610; 85730; 87631; 93005; 93041; 94760; 96365; 96368; 96375; 99285; J0610; J1265

== ENCOUNTER → 2020-10-09 | Outpatient (CLI) | payer MEDICARE, OTHER ==
[~2020-10-09] MED LIST changes: +HYDR10TAB PO; +ISOS1TAB35 PO; -ISOS30TA4 PO
[2020-10-09 09:48] LABS: BASO % 0.3 % (0.0-1.0); EOS # 0.2 10^3/uL (0.0-0.5); EOS % 3.6 % (0.0-3.0); HEMATOCRIT 28.2 % (42.0-52.0); HEMOGLOBIN 8.8 g/dl (13.5-17.5); LYMPH # 0.8 10^3/uL (1.5-5.0); LYMPH % 12.6 % (24.0-44.0); MEAN CORPUSCULAR HEMOGLOBIN 31.3 pg (27.0-33.0); MEAN CORPUSCULAR HGB CONC 31.2 g/dl (32.0-36.5); MEAN CORPUSCULAR VOLUME 100.4 fl (80.0-96.0); MONO # 0.3 10^3/uL (0.0-0.8); MONO % 3.9 % (2.0-8.0); NEUTROPHILS # 5.1 10^3/uL (1.5-8.5); NEUTROPHILS % 79.3 % (36.0-66.0); PLATELET COUNT, AUTOMATED 233 10^3/uL (150-450); RED BLOOD COUNT 2.81 10^6/uL (4.30-6.10); WHITE BLOOD COUNT 6.5 10^3/uL (4.0-10.0)
[2020-10-09 10:17] LABS: ALBUMIN 2.7 GM/DL (3.2-5.2); BILIRUBIN,TOTAL 0.4 MG/DL (0.2-1.0); CALCIUM LEVEL 7.6 MG/DL (8.8-10.2); CREATININE FOR GFR 3.95 MG/DL (0.70-1.30); GLOMERULAR FILTRATION RATE 15.4 (>35); POTASSIUM SERUM 4.7 MEQ/L (3.5-5.1); TOTAL PROTEIN 5.6 GM/DL (6.4-8.2)
== END ==
LOC: M LAB 09:21
PROVIDERS: ATTEND Internal Medicine
DX: 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, or unspecified chronic kidney disease (principal); I50.32 Chronic diastolic (congestive) heart failure

== ENCOUNTER → 2020-10-30 | Outpatient (CLI) | payer MEDICARE, OTHER ==
[2020-10-30 12:23] LABS: HEMATOCRIT 30.4 % (42.0-52.0); HEMOGLOBIN 9.2 g/dl (13.5-17.5); MEAN CORPUSCULAR HGB CONC 30.3 g/dl (32.0-36.5); MEAN CORPUSCULAR VOLUME 102.4 fl (80.0-96.0); PLATELET COUNT, AUTOMATED 163 10^3/uL (150-450); RED BLOOD COUNT 2.97 10^6/uL (4.30-6.10); WHITE BLOOD COUNT 3.4 10^3/uL (4.0-10.0)
[2020-10-30 12:47] LABS: CALCIUM LEVEL 8.5 MG/DL (8.8-10.2); CREATININE FOR GFR 3.47 MG/DL (0.70-1.30); GLOMERULAR FILTRATION RATE 17.9 (>35); POTASSIUM SERUM 5.3 MEQ/L (3.5-5.1); THYROID STIMULATING HORMONE 8.36 uIU/ML (0.358-3.740)
== END ==
LOC: M LAB 11:25
PROVIDERS: ATTEND Physician Assistant
DX: R79.89 Other specified abnormal findings of blood chemistry (principal); E03.9 Hypothyroidism, unspecified; T81.49XA Infection following a procedure, other surgical site, initial encounter; N18.4 Chronic kidney disease, stage 4 (severe)

== ENCOUNTER → 2021-02-03 | Outpatient (REF) | payer MEDICARE, OTHER ==
[2021-02-03 17:58] LABS: PERCENT SATURATION 23.6 % (19.7-50.0)
== END ==
LOC: M LAB REF 16:44
PROVIDERS: ATTEND Internal Medicine Nephrology
DX: N18.9 Chronic kidney disease, unspecified (principal); D63.1 Anemia in chronic kidney disease

== ENCOUNTER → 2021-02-10 | Outpatient (CLI) | payer MEDICARE, OTHER ==
--- NOTE | 2021-02-10 11:57 | REP ---
INDICATION: CKD 4. COMPARISON: None. TECHNIQUE: Real-time sonographic evaluation of the kidneys is performed. FINDINGS: Renal cortical echogenicity pattern is normal bilaterally and contours are smooth. There is no hydronephrosis bilaterally. There is an extrarenal pelvis on the left. There is a simple anechoic cyst in the lower pole the right kidney 2.2 x 1.6 x 1.8 cm. There is a simple cyst in the upper pole of the left kidney 1.9 cm in maximum diameter and in the mid aspect 2.0 cm in maximum diameter. The right kidney measures 9.0 x 4.0 x 4.9 cm. Left renal dimensions are 9.6 x 4.6 x 5.0 cm. The bladder wall is trabeculated. With Doppler color evaluation a left ureteral jet is visualized, a right ureteral jet is not seen. Prostate measures 4.1 x 3.7 x 3.0 cm, total volume 24 cc. IMPRESSION: No hydronephrosis. Benign bilateral renal cysts. <Electronically signed by Esteban Owen > 02/10/21 [id number]
== END ==
LOC: M RAD 11:06
PROVIDERS: ATTEND Internal Medicine Nephrology
DX: N18.4 Chronic kidney disease, stage 4 (severe) (principal); N28.1 Cyst of kidney, acquired

== ENCOUNTER 2021-04-04 15:08 | Inpatient (IN) | payer MEDICARE, OTHER ==
[~2021-04-04] VITALS: Ht 172.7 cm; Wt 63.1 kg
--- NOTE | 2021-04-04 17:01 | REP ---
INDICATION: SOB; diarrhea. COMPARISON: None. TECHNIQUE: PA view the chest and two views of the abdomen were obtained. FINDINGS: Chest: The lungs are clear. The heart is not enlarged there is no failure. Dual pacing leads are in place. Abdomen: No free intraperitoneal air. Multiple air-fluid levels in the small bowel consistent with partial obstruction or ileus. Normal distribution of gas in the colon. Postoperative changes after right hemicolectomy. No organomegaly. Calcification superimposed over the upper pole of the left kidney could represent a left renal calculus. IMPRESSION: Multiple air-fluid levels in small bowel loops consistent with partial obstruction or ileus. Ileus is most likely. No free intraperitoneal air. Negative chest x-ray. <Electronically signed by Tano Hemphill > 04/04/21 [id number]
[2021-04-04 17:23] LABS: HEMATOCRIT 37.4 % (42.0-52.0); HEMOGLOBIN 12.3 g/dl (13.5-17.5); LYMPH # 0.4 10^3/uL (1.5-5.0); MEAN CORPUSCULAR HEMOGLOBIN 30.1 pg (27.0-33.0); MEAN CORPUSCULAR HGB CONC 32.9 g/dl (32.0-36.5); MEAN CORPUSCULAR VOLUME 91.4 fl (80.0-96.0); MONO # 0.4 10^3/uL (0.0-0.8); MONO % 7.9 % (2.0-8.0); NEUTROPHILS # 3.8 10^3/uL (1.5-8.5); NEUTROPHILS % 82.9 % (36.0-66.0); PLATELET COUNT, AUTOMATED 207 10^3/uL (150-450); RED BLOOD COUNT 4.09 10^6/uL (4.30-6.10); WHITE BLOOD COUNT 4.5 10^3/uL (4.0-10.0)
[2021-04-04 18:02] LABS: ALBUMIN 2.8 GM/DL (3.2-5.2); ALT/SGPT 18 U/L (12-78); BILIRUBIN,DIRECT 0.1 MG/DL (0.0-0.2); BILIRUBIN,TOTAL 0.3 MG/DL (0.2-1.0); BLOOD UREA NITROGEN 130 MG/DL (7-18); CALCIUM LEVEL 8.3 MG/DL (8.8-10.2); CARBON DIOXIDE LEVEL 20 MEQ/L (21-32); CHLORIDE LEVEL 105 MEQ/L (98-107); CK-MB VALUE MASS 3.3 NG/ML (<3.6); CPK CREATINE PHOSPHOKINASE 95 U/L (39-308); GLOMERULAR FILTRATION RATE 6.4 (>35); GLUCOSE, FASTING 95 MG/DL (70-100); MAGNESIUM LEVEL 1.5 MG/DL (1.8-2.4); MB/CK RELATIVE INDEX 3.47 (< OR =4); NT-PRO BNP 8105 PG/ML (<450); POTASSIUM SERUM 4.5 MEQ/L (3.5-5.1); SODIUM LEVEL 135 MEQ/L (136-145); TROPONIN I 0.03 NG/ML (< 0.10)
[2021-04-04] MEDS ORDERED: NS 1,000 ML IV ONE (18:25)
[2021-04-04 20:20] LABS: RSV AMPLIFICATION NEGATIVE (NEGATIVE)
[2021-04-04] MEDS ORDERED: METO1TAB32 PO (20:22)
[2021-04-04] MEDS ORDERED: CALC1CAP31 PO (20:22)
[2021-04-04] MEDS ORDERED: LOKE5PAK PO (20:22)
[2021-04-04] MEDS ORDERED: TORS100T PO (20:22)
[2021-04-04] MEDS ORDERED: HOME MED LIST COMPLETE! XX SCH (20:25)
[2021-04-04] MEDS ORDERED: NS 1,000 ML IV SCH (20:30)
[2021-04-04 21:07] LABS: SALICYLATE LEVEL < 1.7 MG/DL (5.0-30.0)
[2021-04-04] MEDS: metroNIDAZOLE 500 MG in IV 1 EA IV SCH (22:00)
--- NOTE | 2021-04-04 22:09 | HPEPDOC ---
General Date of Admission 04/04/21 Date of Service: Apr 04, 2021 Chief Complaint Shortness Of Breath. Source: Patient Exam Limitations: Hard of hearing Timing/Duration: Day(s) Severity: Moderate Associated Symptoms: Weakness, Mechanical fall History of Present Illness Jose Ramon Barrientos is an 89-year-old male with significant history of cataracts, TIA, migraines, pacemaker, CKD, CHF and pernicious anemia who presents with frequent diarrhea and generalized weakness. Patient oriented x3 but somewhat poor historian and hard of hearing. Patient reports that he started feeling "rotten" Saturday night and it progressed to worsening today. He describes initially having some straining with bowel movements over the weekend and he started taking some ibuprofen for the cramping sensation that he felt which helped the pain, but then he began having some frequent BMs "all the time". He is unable to give a set number, but he reports that he had some urgency and accidents which caused him to go through pack of depends in 3 days. He also endorses associated symptoms of poor p.o. intake, fatigue and weakness. With his description of weakness he then endorses a fall 2 days ago in which he felt his legs were weak and and he slid to the left where he reports that he may have hit his ribs. He denies hitting head, loss of consciousness or dizziness. Patient reports that he does have dry mouth and is requesting something to drink. He denies any abdominal pain or tenderness. Pt denies collazo, sinus congestion, sore throat, productive cough, sob, palpitations, chest pain, n/v, sensory changes or syncope. Of note, patient GI panel + C. difficile, KUB SBO versus ileus. Home Medications Scheduled Aspirin (Aspirin EC) 81 Mg Tab, 81 MG PO DAILY, (Reported) Calcitriol (Calcitriol) 0.25 Mcg Capsule, 0.25 MCG PO 3XW, (Reported) MON, WED, SAT Metoprolol Succinate (Metoprolol Succinate) 25 Mg Tab.er.24h, 25 MG PO DAILY, (Reported) Omeprazole (Omeprazole) 20 Mg Capsule.dr, 20 MG PO DAILY, (Reported) Sodium Zirconium Cyclosilicate (Lokelma) 5 Gm Powd.pack, 5 GM PO QWEEK, (Reported) SUNDAYS Torsemide (Torsemide) 100 Mg Tablet, 50 MG PO DAILY, (Reported) Allergies Coded Allergies: ramipril (Verified Adverse Reaction, Mild, DIZZINESS, 05/30/20) Past Medical History Medical History Cataracts, TIA, migraines, pernicious anemia, CKD, CHF Surgical History Pacemaker, appendectomy at age 16, bowel resection due to small bowel obstruction related to scar tissue adhesions at 76 Family History Significant Family History: Cancer (Colorectal) Social History * Smoker: former Smoker Alcohol: occationally (Monthly 1-2 beers) Drugs: denies Recent Travel/Sick Contacts: Denies: Recent travel, Recent sick contacts Psychosocial History: No pertinent psych hx Patient lives at home with 2 sons; A-FIB/CHADSVASC A-FIB History Current/History of A-Fib/PAF?: No Current PO Anticoag Therapy: No Review of Systems Constitutional: Reports: Weakness, Fatigue; Denies: Chills, Fever, Night Sweats Eyes: Denies: Pain, Vision change ENT: Denies: Head Aches, Ear Pain, Dysphagia Skin: Denies: Rash, Lesions, Breakdown Pulmonary: Denies: Dyspnea, Cough Cardiovascular: Denies: Chest Pain, Palpitations, Orthopnea, Paroxysmal Noc. Dyspnea, Lt Headedness Gastrointestinal: Reports: Diarrhea, Constipation; Denies: Nausea, Vomiting, Abdominal Pain Genitourinary: Denies: Dysuria, Frequency, Incontinence, Retention Hematologic: Denies: Bruising, Bleeding Excessively Musculoskeletal: Denies: Neck Pain, Back Pain, Joint Pain, Muscle Pain, Spasms Neurological: Denies: Weakness, Numbness, Change in speech, Confusion Psych: Reports: Mood Normal; Denies: Depression, Memory Issues Physical Examination General Exam: Positive: Alert, Cooperative, No Acute Distress, Other (10) Eye Exam: Positive: PERRLA, Conjunctiva & lids normal, EOMI; Negative: Sclera icteric ENT Exam: Positive: Atraumatic, Mucous membr. moist/pink, Pharynx Normal, Other ENT (Hard of hearing) Neck Exam: Positive: Supple; Negative: JVD, thyromegaly Chest Exam: Positive: Clear to auscultation, Normal air movement Heart Exam: Positive: Rate Normal, Normal S1, Normal S2, Other (Extrasystoles); Negative: Murmurs, Rubs Telemetry: Positive: No significant arrhythmia Abdomen Exam: Positive: BS Hyperactive, Soft, Other (Notable scar tissue umbilical region); Negative: Tenderness, Hepatospenomegaly Extremity Exam: Positive: Normal pulses; Negative: Clubbing, Cyanosis, Edema Skin Exam: Positive: Other skin issue (Skin tenting); Negative: Breakdown, Lesion Neuro Exam: Positive: Normal Gait, Normal Speech, Cranial Nerves 3-12 NL, Reflexes 2+ Psych Exam: Positive: Mental status NL, Mood NL, Oriented x 3 Vital Signs Vital Signs Date Time Temp Pulse Resp B/P (MAP) Pulse Ox O2 Delivery O2 Flow Rate FiO2 04/04/21 17:13 74 156/79 (104) 130 128/72 (90) 98 140/63 (88) 04/04/21 16:38 98 04/04/21 15:49 Room Air 04/04/21 15:29 96.6 16 Laboratory Data Labs 24H Laboratory Tests 2 04/04/21 17:11: Immature Granulocyte % (Auto) 0.2, Neutrophils (%) (Auto) 82.9H, Lymphocytes (%) (Auto) 9.0L, Monocytes (%) (Auto) 7.9, Eosinophils (%) (Auto) 0.0, Basophils (%) (Auto) 0.0, Neutrophils # (Auto) 3.8, Lymphocytes # (Auto) 0.4L, Monocytes # (Auto) 0.4, Eosinophils # (Auto) 0.0, Basophils # (Auto) 0.0, Nucleated Red Blood Cells % (auto) 0.0, Anion Gap 10, Glomerular Filtration Rate 6.4L, Calcium Level 8.3L, Magnesium Level 1.5L, Total Bilirubin 0.3, Direct Bilirubin 0.1, Aspartate Amino Transf (AST/SGOT) 10, Alanine Aminotransferase (ALT/SGPT) 18, Alkaline Phosphatase 100, Total Creatine Kinase 95, Creatine Kinase MB 3.3, Creatine Kinase MB Relative Index 3.47, Troponin I 0.03, UT-Ree-A-Type Natriuretic Peptide 8105H, Total Protein 6.0L, Albumin 2.8L, Albumin/Globulin Ratio 0.9, Thyroid Stimulating Hormone (TSH) 3.550 04/04/21 19:29: Coronavirus (COVID-19)(PCR) NEGATIVE, Influenza Type A (RT-PCR) NEGATIVE, Influenza Type B (RT-PCR) NEGATIVE, Respiratory Syncytial Virus (PCR) NEGATIVE CBC/BMP Laboratory Tests 04/04/21 17:11 Microbiology Microbiology 04/04/21 Gastrointestinal Tract Panel (PCR), Received Pending Assessment/Plan 1. Diarrhea secondary to C. difficile colitis: No reported recent antibiotic use. No reported history of C. difficile. Concern for ileus versus small bowel given KUB read; Fulminant C. difficile coverage. Monitor patient, monitor for signs of worsening infection. NPO. Hydration. Vanco p.o. and Flagyl. Repeat KUB in a.m. for measurement and pending read consider GI versus ID consult or general surgery consult. A.m. lab work -monitor electrolytes and repletion per protocol 2. WILLIAM on CKD: In setting of GI losses, diuretic and ibuprofen use. Monitor patient, hydration. Nephrology consulted in ED and recommendations made for patient tonight given patient with K4.5 and CO2 20. A.m. lab work. Appreciate further nephrology recommendations in a.m. 3. Chronic Systolic CHF without exacerbation: Echo 2019 reports LVEF 25%. Patient dry in exam. Home diuretics on hold. Plan to monitor patient closely given WILLIAM on CKD and dehydration -will be hydrating patient, but given cardiac functioning high risk for overload appreciate nephrology with fluid balance. 4. Deconditioning and generalized weakness in frail elder: Patient with recent fall prior to admission. Will be obtaining chest x-ray given his reported rib displacement Monitor patient, fall precautions, up with assistance to bedside commode. Plan for PT for therapeutic purposes pending clinical course. DVT: SCDs, hep SQ CODE STATUS: Full code Dispo: Home with sons pending clinical course/patient response. Patient reports that typically he is able to walk without any assistance and carry on such as driving himself to appointments and perform his own ADLs at baseline prior to admission. Plan / VTE VTE Prophylaxis Ordered?: Yes LATRICIA MCKAY NP Apr 04, 2021 20:50 CLARISSA HYLTON MD Apr 09, 2021 03:03
[2021-04-04 22:47] VITALS: BP 159/85
[2021-04-05] MEDS: VANCOMYCIN ORAL SOL 250MG/5ML ORAL SYRINGE PO SCH ×4 (01:53→17:19)
[2021-04-05] MEDS: NS 1,000 ML IV SCH ×2 (01:54→06:34)
[2021-04-05 06:00] VITALS: BP_SYST 121; BP_SYST 132; BP_SYST 139; BP_DIAS 64; BP_DIAS 69; BP_DIAS 71
[2021-04-05 06:20] LABS: BASO % 0.3 % (0.0-1.0); EOS % 0.9 % (0.0-3.0); HEMATOCRIT 36.8 % (42.0-52.0); HEMOGLOBIN 12.2 g/dl (13.5-17.5); LYMPH # 0.4 10^3/uL (1.5-5.0); LYMPH % 10.2 % (24.0-44.0); MEAN CORPUSCULAR HEMOGLOBIN 30.7 pg (27.0-33.0); MEAN CORPUSCULAR HGB CONC 33.2 g/dl (32.0-36.5); MEAN CORPUSCULAR VOLUME 92.5 fl (80.0-96.0); MONO # 0.3 10^3/uL (0.0-0.8); MONO % 9.6 % (2.0-8.0); NEUTROPHILS # 2.7 10^3/uL (1.5-8.5); NEUTROPHILS % 78.7 % (36.0-66.0); PLATELET COUNT, AUTOMATED 161 10^3/uL (150-450); RED BLOOD COUNT 3.98 10^6/uL (4.30-6.10); WHITE BLOOD COUNT 3.4 10^3/uL (4.0-10.0)
[2021-04-05] MEDS: metroNIDAZOLE 500 MG in IV 1 EA IV SCH ×3 (06:33→21:32)
[2021-04-05 06:45] LABS: BLOOD UREA NITROGEN 127 MG/DL (7-18); CALCIUM LEVEL 7.8 MG/DL (8.8-10.2); CARBON DIOXIDE LEVEL 17 MEQ/L (21-32); CHLORIDE LEVEL 110 MEQ/L (98-107); CREATININE FOR GFR 7.97 MG/DL (0.70-1.30); GLOMERULAR FILTRATION RATE 6.8 (>35); GLUCOSE, FASTING 72 MG/DL (70-100); POTASSIUM SERUM 4.5 MEQ/L (3.5-5.1); SODIUM LEVEL 137 MEQ/L (136-145)
--- NOTE | 2021-04-05 07:15 | ECGEPIP ---
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
[2021-04-05] MEDS ORDERED: D5W/0.45% SODIUM CHLORIDE 1,000 ML IV SCH (08:30)
[2021-04-05] MEDS ORDERED: SODIUM BICARBONATE 75 MEQ in NS 0.45% 1,000 ML IV SCH (09:00)
[2021-04-05 09:12] LABS: VITAMIN B12 LEVEL > 2000 PG/ML (247-911)
--- NOTE | 2021-04-05 09:39 | REP ---
INDICATION: pt w c.diff r/o megacolon / query diameter of colon. COMPARISON: 04/04/2021 supine and upright views of the abdomen. TECHNIQUE: Single AP view of the abdomen with the patient supine. FINDINGS: The mildly dilated small bowel loops identified on the comparison supine view of the abdomen have decreased in size. There is no upright view on the current study to evaluate air-fluid levels. There are surgical staple lines in the abdomen on the right than the left, unchanged. The colon is not distended. There is a large bridging osteophyte along the left lateral margin of the L2-3 vertebra, unchanged. IMPRESSION: The mildly distended small bowel loops have decreased in size. The colon is not distended. There are surgical staple lines in the abdomen bilaterally. <Electronically signed by Esteban Elise > 04/05/21 0924
--- NOTE | 2021-04-05 10:10 | REP ---
INDICATION: WILLIAM. COMPARISON: Renal ultrasound dated 02/10/2021. TECHNIQUE: Multiple ultrasonographic images of the kidneys. FINDINGS: The right kidney measures 9.8 x 6.0 x 4.6 cm. The left kidney measures 8.8 x 4.6 x 4.6 cm. The right kidney is in the low normal size range. The left kidney is in the atrophic size range. There is no hydronephrosis on the right or the left. There are no renal calculi. There are no solid renal masses. There is a Bosniak type 1 1.7 cm cortical cyst at the lower pole of the right kidney. There is a 1.7 cm Bosniak type 1 cyst at the upper/midpole of the left kidney. There is a 2.2 cm Bosniak type 1 cyst at the lower pole of the left kidney. Bladder: The bladder is distended. No bladder wall masses or cysts are identified. There is a Boogie catheter, however the tip of the Boogie catheter is in the prostate. The prostate is normal size measuring 3.7 x 3.1 x 4.4 cm for a volume of 25 cc. IMPRESSION: There are benign Bosniak type 1 cysts bilaterally as described. There are no solid renal masses. There is no hydronephrosis. There are no renal calculi. There are no renal solid masses. The Boogie catheter tip is in the prostate. The bladder is distended. <Electronically signed by Esteban Elise > 04/05/21 [id number]
[2021-04-05] MEDS: HEPARIN SOD (PORCINE) 5000UNITS/ML 1ML VIAL/SYRINGE SQ SCH ×2 (10:13→21:32)
[2021-04-05] MEDS: METOPROLOL SUCC *XL* 25MG TAB (TopROL *XL*) PO SCH (10:13)
[2021-04-05 10:55] VITALS: BP 147/67
[2021-04-05] MEDS: SODIUM BICARBONATE 75 MEQ in D5W/0.45% SODIUM CHLORIDE 1,000 ML IV SCH (15:05)
[2021-04-05 16:40] VITALS: BP 143/67
--- NOTE | 2021-04-05 17:13 | IPNPDOC ---
Text Note Date of Service The patient was seen on 04/05/21. NOTE Subjective: Patient reported 2 bowel movements with liquid stool all night. He told me he is hungry and wants to eat Objective: GENERAL APPEARANCE: NAD HEENT: no scleral icterus, no JVD, EOMI CARDIOVASCULAR: S1S2 LUNGS: CTA ABDOMEN: soft & mildly tender w palpation, mildly distended MUSCULOSKELETAL: no cyanosis, no swelling INTEGUMENT: no generalized pallor NEUROLOGICAL: cranial nerve function from 2-12 intact, follows commands, speech not dysarthric Assessment and plan Patient is 89 years old male with past medical history of TIA, migraines, CKD, pacemaker, CHF, pernicious anemia presented to hospital with diarrhea and generalized weakness. Patient was found to have C. difficile colitis Fulminant C. difficile colitis Continue vancomycin p.o. with metronidazole IV Abdominal x-ray showed some improvement:The mildly distended small bowel loops have decreased in size.The colon is not distended Appreciate/agree with surgical consult Acute on chronic CKD/nonanion gap metabolic acidosis Nephrology team on board Continue bicarb as per nephrology team recommendation Continue to monitor Systolic CHF Diuretics on hold due to WILLIAM We will repeat echo. Echo 2019 reports LVEF 25%. Continue beta-andrey Deconditioning PT/OT Pernicious anemia B12 within normal limit VS,Angie, I+O VS, Eileene, I+O Laboratory Tests 04/04/21 17:11 04/05/21 06:04 Vital Signs Date Time Temp Pulse Resp B/P (MAP) Pulse Ox O2 Delivery O2 Flow Rate FiO2 04/05/21 16:40 96.7 60 16 143/67 (92) 99 Room Air I&O- Last 24 Hours up to 6 AM 04/05/21 06:00 Intake Total 1750 ml Output Total 150 ml Balance 1600 ml MED MORTENSEN DO Apr 05, 2021 17:13
[2021-04-05 20:00] VITALS: BP 159/69
--- NOTE | 2021-04-05 21:10 | CR ---
CONSULTATION DATE: 04/05/2021 REASON FOR CONSULTATION: C-diff colitis with possible ileus. BRIEF HISTORY OF PRESENT ILLNESS: The patient is a 89-year-old male who has end-stage renal disease, cataracts, migraines, congestive heart failure, anemia, who presents with frequent diarrhea, generalized weakness and orthostatic hypotension. Essentially he presented, was worked up, and found to have C-diff positive stools. This was on 04/04 and over the last 24 hours they had done an x-ray because of some crampy abdominal pain and diarrhea and abdominal distention and this showed an ileus. I am asked to see the patient for recommendations concerning this. He still has had some bowel movements today. He was started on antibiotics and is feeling much better today with no complaints of abdominal pain. PAST MEDICAL HISTORY: The patient's past medical history is significant for: 1. History of pacemaker. 2. Pacemaker. 3. Appendectomy. 4. Bowel resection. 5. Cataracts. 6. TIA. 7. Migraines. 8. Pernicious anemia. 9. Chronic kidney disease. 10. Congestive heart failure. MEDICATIONS: 1. Aspirin. 2. Calcitriol. 3. Metoprolol. 4. Omeprazole. 5. Lokelma. 6. Torsemide. PHYSICAL EXAMINATION: GENERAL APPEARANCE: An 89-year-old male who looks stated age. HEENT: Unremarkable. NECK: Supple without adenopathy. LUNGS: Clear. HEART: Regular. ABDOMEN: Softly distended, nontender. No guarding, no rebound, no peritoneal signs are appreciated. IMPRESSION AND PLAN: The patient has evidence of C-diff colitis and at this point he seems to be stable from a medical standpoint, slowly improving from a fluid status, but more importantly, he is not feeling hypotensive. His lactic acid has not been elevated and he has not had any tenderness or abdominal pain today, thus he was started on a clear liquid diet as tolerated. Thus, I do feel that tomorrow morning you can start him on a regular diet. If he does not tolerate this, please contact us, and then he would probably need to go slower with his progression of his diet. But I anticipate at this time, given his improvement over a very short time period, that it is most likely that he will be able to tolerate a diet tomorrow.
[2021-04-06] VITALS: BP 162/68
[2021-04-06] MEDS: VANCOMYCIN ORAL SOL 250MG/5ML ORAL SYRINGE PO SCH ×4 (00:17→18:14)
[2021-04-06] MEDS: SODIUM BICARBONATE 75 MEQ in D5W/0.45% SODIUM CHLORIDE 1,000 ML IV SCH (02:26)
[2021-04-06 04:00] VITALS: BP 114/57
[2021-04-06] MEDS: metroNIDAZOLE 500 MG in IV 1 EA IV SCH ×3 (05:13→21:01)
[2021-04-06 05:50] LABS: EOS % 0.4 % (0.0-3.0); HEMATOCRIT 31.6 % (42.0-52.0); HEMOGLOBIN 10.5 g/dl (13.5-17.5); LYMPH # 0.3 10^3/uL (1.5-5.0); LYMPH % 6.1 % (24.0-44.0); MEAN CORPUSCULAR HEMOGLOBIN 30.6 pg (27.0-33.0); MEAN CORPUSCULAR HGB CONC 33.2 g/dl (32.0-36.5); MEAN CORPUSCULAR VOLUME 92.1 fl (80.0-96.0); MONO # 0.5 10^3/uL (0.0-0.8); MONO % 8.5 % (2.0-8.0); NEUTROPHILS # 4.7 10^3/uL (1.5-8.5); NEUTROPHILS % 84.6 % (36.0-66.0); PLATELET COUNT, AUTOMATED 146 10^3/uL (150-450); RED BLOOD COUNT 3.43 10^6/uL (4.30-6.10); WHITE BLOOD COUNT 5.6 10^3/uL (4.0-10.0)
[2021-04-06 06:21] LABS: CALCIUM LEVEL 7.7 MG/DL (8.8-10.2); CREATININE FOR GFR 6.97 MG/DL (0.70-1.30); POTASSIUM SERUM 3.6 MEQ/L (3.5-5.1)
[2021-04-06 08:00] VITALS: BP 135/68
[2021-04-06] MEDS ORDERED: CARVedilol 3.125 MG TAB PO SCH (09:00)
[2021-04-06] MEDS: METOPROLOL SUCC *XL* 25MG TAB (TopROL *XL*) PO SCH (09:42)
[2021-04-06] MEDS: HEPARIN SOD (PORCINE) 5000UNITS/ML 1ML VIAL/SYRINGE SQ SCH ×2 (09:42→21:01)
--- NOTE | 2021-04-06 10:42 | CR ---
CONSULTATION DATE: 04/05/2021 REQUESTING PHYSICIAN: Giovanny Dewitt MD CONSULTING PHYSICIAN: Ajith Blank MD REASON FOR CONSULTATION: Management of acute renal failure superimposed on chronic kidney disease. CHIEF COMPLAINT: The patient presented to the hospital yesterday with progressive weakness and fall. HISTORY OF PRESENT ILLNESS: Jose Ramon Barrientos is an 89-year-old male with past medical history of hypertension, chronic combined systolic and diastolic congestive heart failure, history of AV block, status post pacemaker, baseline chronic kidney disease stage IV, past baseline creatinine of around 3.4 as of January 2011 when he was seen for the first time in nephrology office, multiple other comorbidities as mentioned below. He presented to the hospital yesterday after feeling very weak, tired and fatigued and he was having frequent diarrhea and loose stools at home. He was also having abdominal cramping and he was taking ibuprofen for the cramping. He had decreased appetite and he also fell at home two days ago because his legs gave out. The patient was admitted under the hospitalist service. He was found to have positive Clostridium difficile on the gastrointestinal (GI) panel. X-ray, KUB showed small-bowel obstruction versus ileus. Hospitalist service is in care of him at this time with IV fluid hydration, He was found to have renal failure on top of his chronic kidney disease stage IV. His creatinine was 8.5 on arrival. I saw and evaluated the patient today morning at the bedtime. He was getting ready to be transferred to the progressive care unit when I saw him. He reports that he is feeling hungry now and he was requesting his diet to be changed to regular diet. He reports his diarrhea is slightly better. PAST MEDICAL HISTORY: Past medical history of chronic systolic and diastolic congestive heart failure, transient ischemic attacks (TIAs), pernicious anemia, chronic kidney disease stage IV, baseline creatinine of 3.4, AV block. PAST SURGICAL HISTORY: Status post pacemaker, status post appendectomy at age [age] years old and he had adhesions and he needed bowel surgery when he was 76 years old. ALLERGIES: He is allergic to RAMIPRIL. FAMILY HISTORY: No significant family history of end-stage renal disease requiring hemodialysis. SOCIAL HISTORY: The patient is a ex-smoker. He occasionally drinks alcohol. Denies any drug abuse. He lives at home with is two sons and he is a . CONTINUATION REVIEW OF SYSTEMS: CONSTITUTIONAL: He reports feeling weak and tired and fatigued. EYES: He denies any blurry vision or double vision. ENT: Denies any dysphagia or odynophagia. CARDIOVASCULAR: Denies any chest pain or palpitations. RESPIRATORY: Denies any shortness of breath or cough. GI: Reports persistent diarrhea. GENITOURINARY: He reports decreased urine output. MUSCULOSKELETAL: Denies any muscles aches and pains but he does report muscle weakness and fall at home. SKIN: Denies any rashes or ulcers. HEMATOLOGICAL/ONCOLOGICAL: Denies any easy bleeding or bruising. 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 All other review of systems are negative. PHYSICAL EXAMINATION: GENERAL: Patient is awake, alert and oriented x3 sitting up in the wheelchair. VITAL SIGNS: Temperature is 96.8 and 96.7 degrees Fahrenheit, blood pressure is 143/67, pulse is 60, respiratory rate is 16, saturating 99% on room air. HEAD AND NECK: Extraocular muscles intact. Pupils equally round and reactive to light. Mucous membranes are moist. NECK: Supple. There is no JVD. CARDIOVASCULAR: S1 and S2, regular rate. No significant edema of the bilateral lower extremities. RESPIRATORY: Chest is clear to auscultation bilaterally. There is equal air entry. No rales or rhonchi. ABDOMEN: Soft, slightly distended, decreased bowel sounds and mild tenderness to deep palpation. MUSCULOSKELETAL: No clubbing or cyanosis. Pulses are 2+. RENT[employer]MENT: No focal deficit. Power is 5/5 in all extremities. LABORATORY DATA: CBC showed a WBC of 3.4, hemoglobin 12.2, platelets are 161,000. Urinalysis done today showed 1+ protein, and 1+ blood, 2+ leukocyte esterase, WBC count is 30. BMP done on arrival showed sodium 135, potassium 4.5, chloride 105, bicarbonate 20, BUN 130, creatinine 8.5. Calcium is 8.3, magnesium is 1.5. B12 is more than 2000. TSH is 3.5. Repeat BMP today done in the morning showed a sodium of 137, potassium 4.5, chloride 110, bicarbonate 17, BUN 127, creatinine is 7.9. Lactic acid 1.1. Microbiology: C. Diff toxin is positive. Urine culture is pending. Imaging: A renal ultrasound was done which showed benign Bosniak 1 cyst bilaterally. No solid masses. No hydronephrosis. No renal calculi or solid renal masses. Kidneys are mildly atrophic with right kidney 9.8 cm and left kidney 8.8 cm. CURRENT INPATIENT MEDICATIONS: Patient is getting sodium chloride, I changed IV fluid to D5-1/2 Normal Saline with sodium bicarbonate 75 mEq at 120 ml an hour for a total of 2 liters. He is on IV Flagyl. He was getting Coreg which has been stopped. He is on Heparin sub q. q. hourly, metoprolol XL 25 mg p.o. daily and Vancomycin 500 mg p.o. q. 6 hourly. ASSESSMENT AND PLAN: 1. Acute renal failure superimposed on chronic kidney disease Stage IV, most likely secondary to dehydration, volume depletion and use of Ibuprofen at home. I would try to hydrate the patient first with bicarbonate containing fluids. If renal function does not improve back to baseline, the patient might have to start hemodialysis. 2. Hyperchloremic metabolic acidosis, it is secondary to a combination of diarrhea and renal failure. I have started the patient on D5-1/2 Normal Saline with 75 mEq of bicarbonate, IV Normal Saline has been stopped. 3. Hypomagnesemia, patient will be given IV magnesium today. 4. C. Diff colitis diarrhea, patient is currently on IV Flagyl and oral Vancomycin, the rest of the management is as per the medical team. 5. Secondary hyperparathyroidism and chronic kidney disease. Patient's Calcitriol is on hold at this time because of possible ileus. 6. History of hypertension, blood pressure is acceptable. Metoprolol is on hold. Thank you for involving me in the care of this patient. I shall be happy to follow the patient along with you tomorrow morning.
--- NOTE | 2021-04-06 13:40 | IPN ---
PROGRESS NOTE DATE: 04/06/2021 SUBJECTIVE: Patient was seen and examined at the bedside today morning. He was getting his echocardiogram when I saw him. He reports that he is still having loose stools, but frequency is getting better. He continues to be on bicarb containing I.V. fluid. There is slight improvement in his creatinine from 7.9 to 6.9 today. OBJECTIVE: VITAL SIGNS: Temperature 97.3 degrees Fahrenheit, blood pressure 135/68, pulse 71, respiratory rate 17, saturating 98% on room air. INTAKE/OUTPUT: Urine output is not recorded because he has incontinent voids. Weight in the bed scale is 62.3 kg. PHYSICAL EXAMINATION: GENERAL: Patient is awake, alert and oriented x3, lying in bed, hard of hearing. HEAD/NECK: Extraocular muscles intact. Pupils equally round and reactive to light. Mucous membranes are moist. Neck is supple. There is no JVD. CVS: S1, S2, regular rate. No edema of the bilateral lower extremities. RESPIRATORY: Chest is clear to auscultation bilateral. Bilateral equal air entry. No rales or rhonchi. ABDOMEN: Soft. He has tenderness to deep palpation in the left lower quadrant and right lower quadrant. Old abdominal surgical scar is noted. MUSCULOSKELETAL: No clubbing or cyanosis. Pulses are 2+. 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 LABORATORY REVIEW: CBC showed WBC 5.6, hemoglobin 10.5, platelets 146,000. BMP done today morning showed sodium 140, potassium 3.6, chloride 115, bicarb 17, BUN 110, creatinine 6.9, glucose 126, calcium 7.7. CURRENT INPATIENT MEDICATIONS: Patient's medications were all reviewed by myself. His original bicarbonate fluid has stopped. I have ordered a new bicarb D5W with 100 mEq of bicarb with 20 mEq of KCl at 70 cc an hour for a total of 2 liters. He continues to be on I.V. Flagyl and oral Vancomycin. Coreg has been stopped and he is currently on Metoprolol XL 25 mg p.o. daily. ASSESSMENT AND PLAN: 1. Acute renal failure superimposed on chronic kidney disease stage 4: Patient is being gently hydrated because of C. diff colitis. Creatinine is slightly better today. Although it appears patient has azotemia, however, he does not have any signs or symptoms of uremia. There is no urgent need of hemodialysis at this time. I will continue to monitor him for renal recovery back to his baseline with a GFR between 15 to 20. 2. Normal anion gap metabolic acidosis: Patient is in renal failure and he is having diarrhea. He is getting bicarb containing fluids and fluids were changed as mentioned above in the medication section. 3. Anemia and chronic kidney disease: Hemoglobin level is more than 10; no need of Aranesp administration at this time. 4. C. diff colitis: Patient is on Flagyl and Vancomycin. The rest of the management is as per medical team. 5. Chronic systolic congestive heart failure: Patient was getting echocardiogram. Previous echocardiogram done about a year ago showed an LV ejection fraction of 25%. He continues to be on low-dose beta-andrey, diuretics are on hold, and he is actually getting I.V. fluids because of C. diff colitis and possible ileus associated with colitis.
[2021-04-06 14:00] VITALS: BP 141/57
--- NOTE | 2021-04-06 15:28 | IPNPDOC ---
Text Note Date of Service The patient was seen on 04/06/21. NOTE Subjective: Patient stated that he feels better today. He reported a few bowel movements with liquid stool. Objective: GENERAL APPEARANCE: NAD HEENT: no scleral icterus, no JVD, EOMI CARDIOVASCULAR: S1S2 LUNGS: CTA ABDOMEN: soft & mildly tender w palpation, mildly distended MUSCULOSKELETAL: no cyanosis, no swelling INTEGUMENT: no generalized pallor NEUROLOGICAL: cranial nerve function from 2-12 intact, follows commands, speech not dysarthric Assessment and plan Patient is 89 years old male with past medical history of TIA, migraines, CKD, pacemaker, CHF, pernicious anemia presented to hospital with diarrhea and generalized weakness. Patient was found to have C. difficile colitis Fulminant C. difficile colitis Continue vancomycin p.o. with metronidazole IV Abdominal x-ray showed some improvement:The mildly distended small bowel loops have decreased in size.The colon is not distended surgical team recommended to upgrade his diet due to clinical improvement Acute on chronic CKD/nonanion gap metabolic acidosis Nephrology team on board Creatinine slightly better today Systolic CHF Diuretics on hold due to WILLIAM We will repeat echo. Echo 2019 reports LVEF 25%. Continue beta-andrey Deconditioning PT/OT Pernicious anemia B12 within normal limit VS,Fishbone, I+O VS, Fishbone, I+O Laboratory Tests 04/06/21 05:33 Vital Signs Date Time Temp Pulse Resp B/P (MAP) Pulse Ox O2 Delivery O2 Flow Rate FiO2 04/06/21 14:00 98.0 60 18 141/57 (85) 99 Room Air I&O- Last 24 Hours up to 6 AM 04/06/21 06:00 Intake Total 100 ml Output Total 250 ml Balance -150 ml MED MORTENSEN DO Apr 06, 2021 15:28
[2021-04-06] MEDS: SODIUM BICARBONATE 100 MEQ in KCL 20MEQ IN D5W 1000ML 1,000 ML IV SCH ×2 (15:56)
[2021-04-06 18:00] VITALS: BP 129/58
--- NOTE | 2021-04-06 20:02 | ECHO ---
ECHOCARDIOGRAM DATE OF PROCEDURE: 04/06/2021 Age: Gender: Male Height: 173 cm Weight: 61 kg REFERRING PHYSICIAN: Jana Srinivasan M.D. INDICATION: Congestive heart failure. MEASUREMENTS: IVS 1.1 LV 3.7 LVPW 1.2 LA 3.2 Aorta 3.7 Mitral E wave velocity 71 A wave 101 E prime septal 3.7 E prime lateral 7.0 FINDINGS: This study is of acceptable technical quality. There is underlying sinus rhythm with wide QRS complex and ectopic beats. Left ventricle is normal size. Mild left ventricular hypertrophy is noted. Overall normal left ventricular (LV) systolic function with estimated left ventricular ejection fraction (LVEF) of 60-65%. Normal right ventricular (RV) size and systolic function. Grossly normal atria for patient's age. Aortic valve is sclerotic, but it has three cusps and preserved mobility. Mitral valve exhibits degenerative abnormalities with mild thickening of leaflets and mitral annular calcifications, but mobility is preserved. Tricuspid valve appears normal. Pulmonic valve was not seen. No pericardial effusion is noted. Inferior vena cava was not visualized. Aortic root is normal. Aortic arch and abdominal aorta were not well seen. Doppler interrogation of aortic valve reveals no significant stenosis or insufficiency. There is trace mitral and trace tricuspid insufficiency. Quality of TR jet was not sufficient to estimate pulmonary artery pressure. Mitral inflow pattern and tissue Doppler imaging of mitral annulus revealed grade 1 diastolic dysfunction. CONCLUSIONS: 1. Study is of fair technical quality. Underlying sinus rhythm with wide QRS complex and frequent ectopic beats. 2. Normal left ventricular (LV) size with mild left ventricular hypertrophy (LVH). Preserved LV systolic function and grade 1 diastolic dysfunction. 3. Sclerotic abnormalities of aortic and mitral valves but without significant functional impairment. 4. Unable to estimate central venous pressure and pulmonary artery pressure.
[2021-04-06 22:00] VITALS: BP 158/65
[2021-04-07] MEDS: VANCOMYCIN ORAL SOL 250MG/5ML ORAL SYRINGE PO SCH ×4 (00:44→18:37)
[2021-04-07] MEDS: metroNIDAZOLE 500 MG in IV 1 EA IV SCH ×3 (05:28→21:36)
[2021-04-07 06:00] VITALS: BP 118/62
[2021-04-07 06:04] LABS: BASO % 0.2 % (0.0-1.0); EOS % 0.4 % (0.0-3.0); HEMATOCRIT 28.4 % (42.0-52.0); HEMOGLOBIN 9.7 g/dl (13.5-17.5); LYMPH # 0.5 10^3/uL (1.5-5.0); LYMPH % 8.8 % (24.0-44.0); MEAN CORPUSCULAR HEMOGLOBIN 30.2 pg (27.0-33.0); MEAN CORPUSCULAR HGB CONC 34.2 g/dl (32.0-36.5); MEAN CORPUSCULAR VOLUME 88.5 fl (80.0-96.0); MONO # 0.4 10^3/uL (0.0-0.8); MONO % 6.7 % (2.0-8.0); NEUTROPHILS # 4.8 10^3/uL (1.5-8.5); NEUTROPHILS % 83.4 % (36.0-66.0); PLATELET COUNT, AUTOMATED 128 10^3/uL (150-450); RED BLOOD COUNT 3.21 10^6/uL (4.30-6.10); WHITE BLOOD COUNT 5.7 10^3/uL (4.0-10.0)
[2021-04-07 06:37] LABS: CALCIUM LEVEL 7.2 MG/DL (8.8-10.2); GLOMERULAR FILTRATION RATE 9.5 (>35); POTASSIUM SERUM 3.7 MEQ/L (3.5-5.1)
[2021-04-07] MEDS: HEPARIN SOD (PORCINE) 5000UNITS/ML 1ML VIAL/SYRINGE SQ SCH ×2 (08:47→21:36)
[2021-04-07] MEDS: SODIUM BICARBONATE 100 MEQ in KCL 20MEQ IN D5W 1000ML 1,000 ML IV SCH ×2 (08:47)
[2021-04-07] MEDS: METOPROLOL SUCC *XL* 25MG TAB (TopROL *XL*) PO SCH (08:59)
[2021-04-07 14:00] VITALS: BP 126/53
--- NOTE | 2021-04-07 17:34 | IPNPDOC ---
Text Note Date of Service The patient was seen on 04/07/21. NOTE Subjective: No fever or chills overnight patient reported up to 3 bowel movem ents with liquid stool overnight Objective: GENERAL APPEARANCE: NAD HEENT: no scleral icterus, no JVD, EOMI CARDIOVASCULAR: S1S2 LUNGS: CTA ABDOMEN: soft & mildly tender w palpation, mildly distended MUSCULOSKELETAL: no cyanosis, no swelling INTEGUMENT: no generalized pallor NEUROLOGICAL: cranial nerve function from 2-12 intact, follows commands, speech not dysarthric Assessment and plan Patient is 89 years old male with past medical history of TIA, migraines, CKD, pacemaker, CHF, pernicious anemia presented to hospital with diarrhea and generalized weakness. Patient was found to have C. difficile colitis Fulminant C. difficile colitis Continue vancomycin p.o. with metronidazole IV Abdominal x-ray showed some improvement:The mildly distended small bowel loops have decreased in size.The colon is not distended surgical team recommended to upgrade his diet due to clinical improvement Patient has positive dynamic clinically Acute on chronic CKD/nonanion gap metabolic acidosis Nephrology team on board Creatinine continues to improve. Diastolic CHF Diuretics on hold due to WILLIAM Echo 2019 reports LVEF 25%. Repeated echo showed Normal left ventricular (LV) size with ejection fraction of 60 to 65% with mild left ventricular hypertrophy (LVH). Preserved LV systolic function and grade 1 diastolic dysfunction Continue beta-andrey Deconditioning PT/OT Pernicious anemia B12 within normal limit Asymptomatic bacteriuria UA was positive for pyuria with Klebsiella species However patient did not have symptoms of dysuria Will not treat it with antibiotics especially in the light of C. difficile infection VS,Fishbone, I+O VS, Fishbone, I+O Laboratory Tests 04/07/21 05:45 Vital Signs Date Time Temp Pulse Resp B/P (MAP) Pulse Ox O2 Delivery O2 Flow Rate FiO2 04/07/21 14:00 98.0 60 17 126/53 (77) 99 Room Air I&O- Last 24 Hours up to 6 AM 04/07/21 06:00 Intake Total 2460 ml Output Total 200 ml Balance 2260 ml MED MORTENSEN DO Apr 07, 2021 17:34
[2021-04-07 22:00] VITALS: BP 152/63
--- NOTE | 2021-04-07 23:56 | IPN ---
NEPHROLOGY PROGRESS NOTE DATE: 04/07/2021 SUBJECTIVE: The patient was seen and examined at the bedside today morning. He continues to be on IV fluid hydration. There is slight improvement in the creatinine from 6.9 to 6 today. He still continues to have loose bowel movements. Echocardiogram done yesterday showed preserved left ventricular ejection fraction with grade 1 diastolic dysfunction. Apart from abdominal pain and diarrhea, the patient does not have any active complaints. OBJECTIVE: VITAL SIGNS: Temperature is 98 degrees Fahrenheit, blood pressure 126/53, pulse is 60, respiratory rate of 17, saturating 99% on room air. INTAKE AND OUTPUT: Urine output is not recorded. He has incontinent voids. He has had five bowel movements so far today since overnight. Weight in the bed scale was 63.1 kg yesterday. PHYSICAL EXAMINATION: GENERAL APPEARANCE: The patient is awake, alert, oriented x3, laying in bed in no apparent distress. HEAD AND NECK: Extraocular muscles intact. Pupils are equally round and reactive to light. Mucous membranes are moist. Neck is supple. There is no jugular venous distention. CARDIOVASCULAR: S1, S2, regular rate. EXTREMITIES: No significant edema of the bilateral lower extremities. RESPIRATORY: Chest is clear to auscultation bilaterally. Bilaterally currently no rales or rhonchi. ABDOMEN: Soft, positive bowel sounds. Old surgical scar in the abdomen. Mildly tender to deep palpation in the left lower quadrant and right lower quadrant. MUSCULOSKELETAL: No clubbing, no cyanosis. Pulses are 2+. ENTERPRISE MOBILITY ARCHITECT: No focal deficits. Power is 5/5 in all extremities. LAB REVIEW: CBC showed a WBC of 5.7, hemoglobin 9.7, platelet count 128. BMP showed of 140, potassium 3.7, chloride 110, bicarbonate 22, BUN 96, creatinine is 6. Calcium 7.2. Microbiology urine culture grew Klebsiella oxytoca and ESBL. CURRENT INPATIENT MEDICATIONS: The patient's medications were all reviewed by myself. He continues to be on IV bicarbonate fluids. He is on IV Flagyl and p.o. Vancomycin. No other significant change in the medications today. ASSESSMENT AND PLAN: 1. 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 His renal function is slightly getting better. No urgent need of dialysis. I am hopeful that his renal function should improve back to his baseline. If it does not get better, then the patient will need initiate hemodialysis. 2. Non anion gap metabolic acidosis - The patient is getting bicarbonate in the IV fluid. Bicarbonate level is getting better. 3. C-diff colitis - This patient is on Flagyl and Vancomycin. He continues to have diarrhea. If diarrhea does not get better, he might need to get Dificid. 4. Congestive heart failure - The patient has preserved left ventricular ejection fraction of around 60-65% with grade 1 diastolic dysfunction on the latest echocardiogram. Continue current dose of Metoprolol at this time.
[2021-04-08] MEDS: VANCOMYCIN ORAL SOL 250MG/5ML ORAL SYRINGE PO SCH ×2 (00:22→05:12)
[2021-04-08] MEDS: SODIUM BICARBONATE 100 MEQ in KCL 20MEQ IN D5W 1000ML 1,000 ML IV SCH ×2 (00:23)
[2021-04-08] MEDS: metroNIDAZOLE 500 MG in IV 1 EA IV SCH (05:12)
[2021-04-08 06:00] VITALS: BP_SYST 123; BP_SYST 146; BP_DIAS 64; BP_DIAS 76
[2021-04-08 07:09] LABS: BASO % 0.2 % (0.0-1.0); EOS % 0.5 % (0.0-3.0); HEMATOCRIT 29.8 % (42.0-52.0); HEMOGLOBIN 10.1 g/dl (13.5-17.5); LYMPH # 0.5 10^3/uL (1.5-5.0); LYMPH % 8.8 % (24.0-44.0); MEAN CORPUSCULAR HEMOGLOBIN 30.2 pg (27.0-33.0); MEAN CORPUSCULAR HGB CONC 33.9 g/dl (32.0-36.5); MEAN CORPUSCULAR VOLUME 89.2 fl (80.0-96.0); MONO # 0.3 10^3/uL (0.0-0.8); MONO % 5.4 % (2.0-8.0); NEUTROPHILS # 4.9 10^3/uL (1.5-8.5); NEUTROPHILS % 84.8 % (36.0-66.0); PLATELET COUNT, AUTOMATED 153 10^3/uL (150-450); RED BLOOD COUNT 3.34 10^6/uL (4.30-6.10); WHITE BLOOD COUNT 5.8 10^3/uL (4.0-10.0)
[2021-04-08 07:29] LABS: CALCIUM LEVEL 7.4 MG/DL (8.8-10.2); CREATININE FOR GFR 5.28 MG/DL (0.70-1.30); POTASSIUM SERUM 3.7 MEQ/L (3.5-5.1)
[2021-04-08] MEDS: FIDAXOMICIN 200 MG TAB (DIFICID) PO SCH ×2 (09:31→20:24)
[2021-04-08] MEDS: METOPROLOL SUCC *XL* 25MG TAB (TopROL *XL*) PO SCH (09:32)
[2021-04-08] MEDS: HEPARIN SOD (PORCINE) 5000UNITS/ML 1ML VIAL/SYRINGE SQ SCH ×2 (09:32→20:24)
[2021-04-08] MEDS: SODIUM BICARBONATE 50 MEQ in KCL 20MEQ IN D5W 1000ML 1,000 ML IV SCH ×2 (09:41)
--- NOTE | 2021-04-08 13:28 | IPN ---
PROGRESS NOTE DATE: 04/06/2021 SUBJECTIVE: The patient was seen and examined at the bedside today morning. He continues to be on IV bicarb containing fluids. Renal function is very gradually improving, however, he continues to have abdominal pain and diarrhea so his oral antibiotic has been changed to Dificid now for C. Diff colitis. OBJECTIVE: VITAL SIGNS: Temperature is 97.5 degrees Fahrenheit, blood pressure is 146/64, pulse is 67, respiratory rate is 17, saturating 98% on room air. INTAKE AND OUTPUT: The urine output is not recorded. He has about one void so far since overnight. He has had eight bowel movements since yesterday. Weight on the bed scale is not available. GENERAL: Patient is awake, alert and oriented x3, laying in bed in no apparent distress. HEAD AND NECK: Extraocular muscles intact. Pupils equally round and reactive to light. Mucous membranes are moist. Neck is supple. There is no JVD. CARDIOVASCULAR: S1 and S2, regular rate. No edema of the bilateral lower extremities. RESPIRATORY: Chest is clear to auscultation bilaterally. Bilateral equal air entry. No rales or rhonchi. ABDOMEN: Soft, mildly tender to deep palpation in the left lower quadrant. GRINDER HARDBOARD: No focal deficit. Power is 5/5 in all extremities. LABORATORY DATA: CBC showed a WBC of 5.8, hemoglobin 10.1, platelets are 153,000. BMP showed a sodium of 137, potassium 3.7, chloride 107, bicarbonate 25, BUN 83, creatinine is 5.2, it was 6 yesterday. CURRENT INPATIENT MEDICATIONS: Patient's medications were all reviewed by myself. I changed his IV fluid to KCl to 20 mEq and D5W with 50 mEq of bicarb at 70 ml/hour. His Flagyl and Vancomycin have been stopped and he has been started on oral Dificid 200 mg p.o. twice a day. ASSESSMENT AND PLAN: 1. Acute renal failure superimposed on chronic kidney disease Stage IV. Patient is getting gentle IV fluid hydration. Renal function is gradually improving. No urgent need of hemodialysis at this time. 2. Normal anion gap metabolic acidosis. It is secondary to diarrhea. Patient is getting bicarb in the IV fluids, bicarb level is improved, within the normal range now. 3. C. Diff colitis, did not respond to Flagyl and Vancomycin, he has been started on Dificid now. 4. History of congestive heart failure with preserved ejection fraction and Grade 1 diastolic dysfunction. Patient continues to be on metoprolol, however, diuretics were stopped because of acute renal failure. 5. Positive urine cultures. Patient has Klebsiella Oxytoca in the urine cultures, however he is asymptomatic at this time. He is being treated for C. Diff so no antibiotics are being given at this time.
--- NOTE | 2021-04-08 13:56 | IPNPDOC ---
Text Note Date of Service The patient was seen on 04/08/21. NOTE Subjective: No fever or chills overnight. Patient had 8 bowel movements for past 24 hours Objective: GENERAL APPEARANCE: NAD HEENT: no scleral icterus, no JVD, EOMI CARDIOVASCULAR: S1S2 LUNGS: CTA ABDOMEN: soft & mildly tender w palpation, mildly distended MUSCULOSKELETAL: no cyanosis, no swelling INTEGUMENT: no generalized pallor NEUROLOGICAL: cranial nerve function from 2-12 intact, follows commands, speech not dysarthric Assessment and plan Patient is 89 years old male with past medical history of TIA, migraines, CKD, pacemaker, CHF, pernicious anemia presented to hospital with diarrhea and generalized weakness. Patient was found to have C. difficile colitis Fulminant C. difficile colitis Abdominal x-ray showed some improvement:The mildly distended small bowel loops have decreased in size.The colon is not distended surgical team recommended to upgrade his diet due to clinical improvement Vancomycin and metronidazole have been changed to fidaxomicin due to continuous multiple bowel movements Acute on chronic CKD/nonanion gap metabolic acidosis Nephrology team on board Creatinine continues to improve. Diastolic CHF Diuretics on hold due to WILLIAM Echo 2019 reports LVEF 25%. Repeated echo showed Normal left ventricular (LV) size with ejection fraction of 60 to 65% with mild left ventricular hypertrophy (LVH). Preserved LV systolic function and grade 1 diastolic dysfunction Continue beta-andrey Deconditioning PT/OT Pernicious anemia B12 within normal limit Asymptomatic bacteriuria UA was positive for pyuria with Klebsiella species However patient did not have symptoms of dysuria Will not treat it with antibiotics especially in the light of C. difficile infection VS,Joebone, I+O VS, Fishbone, I+O Laboratory Tests 04/08/21 06:41 Vital Signs Date Time Temp Pulse Resp B/P (MAP) Pulse Ox O2 Delivery O2 Flow Rate FiO2 04/08/21 09:32 68 145/65 04/08/21 06:00 97.5 17 98 Room Air I&O- Last 24 Hours up to 6 AM 04/08/21 06:00 Intake Total 3160 ml Balance 3160 ml MED MORTENSEN DO Apr 08, 2021 13:56
[2021-04-08 14:00] VITALS: BP 139/64
[2021-04-08 22:00] VITALS: BP 149/69
[2021-04-09] MEDS: SODIUM BICARBONATE 50 MEQ in KCL 20MEQ IN D5W 1000ML 1,000 ML IV SCH ×4 (00:35→16:50)
[2021-04-09 05:55] LABS: EOS % 0.4 % (0.0-3.0); HEMATOCRIT 27.9 % (42.0-52.0); HEMOGLOBIN 9.7 g/dl (13.5-17.5); LYMPH # 0.5 10^3/uL (1.5-5.0); LYMPH % 6.7 % (24.0-44.0); MEAN CORPUSCULAR HGB CONC 34.8 g/dl (32.0-36.5); MEAN CORPUSCULAR VOLUME 89.1 fl (80.0-96.0); MONO # 0.4 10^3/uL (0.0-0.8); MONO % 5.2 % (2.0-8.0); NEUTROPHILS # 5.9 10^3/uL (1.5-8.5); NEUTROPHILS % 87.3 % (36.0-66.0); PLATELET COUNT, AUTOMATED 150 10^3/uL (150-450); RED BLOOD COUNT 3.13 10^6/uL (4.30-6.10); WHITE BLOOD COUNT 6.7 10^3/uL (4.0-10.0)
[2021-04-09 06:00] VITALS: BP 146/71
[2021-04-09 06:22] LABS: CALCIUM LEVEL 6.7 MG/DL (8.8-10.2); CREATININE FOR GFR 4.56 MG/DL (0.70-1.30); POTASSIUM SERUM 3.5 MEQ/L (3.5-5.1)
[2021-04-09] MEDS: FIDAXOMICIN 200 MG TAB (DIFICID) PO SCH ×2 (08:16→20:23)
[2021-04-09] MEDS: METOPROLOL SUCC *XL* 25MG TAB (TopROL *XL*) PO SCH (08:17)
[2021-04-09] MEDS: HEPARIN SOD (PORCINE) 5000UNITS/ML 1ML VIAL/SYRINGE SQ SCH ×2 (08:17→20:26)
[2021-04-09] MEDS: ASPIRIN 81MG ENTERIC TABLET PO SCH (10:16)
[2021-04-09 14:00] VITALS: BP_SYST 139; BP_SYST 154; BP_DIAS 66; BP_DIAS 71
--- NOTE | 2021-04-09 14:14 | IPNPDOC ---
Text Note Date of Service The patient was seen on 04/09/21. NOTE Subjective: No fever or chills overnight. No bowel movements overnight Objective: GENERAL APPEARANCE: NAD HEENT: no scleral icterus, no JVD, EOMI CARDIOVASCULAR: S1S2 LUNGS: CTA ABDOMEN: soft & mildly tender w palpation, mildly distended MUSCULOSKELETAL: no cyanosis, no swelling INTEGUMENT: no generalized pallor NEUROLOGICAL: cranial nerve function from 2-12 intact, follows commands, speech not dysarthric Assessment and plan Patient is 89 years old male with past medical history of TIA, migraines, CKD, pacemaker, CHF, pernicious anemia presented to hospital with diarrhea and generalized weakness. Patient was found to have C. difficile colitis Fulminant C. difficile colitis Abdominal x-ray showed some improvement:The mildly distended small bowel loops have decreased in size.The colon is not distended surgical team recommended to upgrade his diet due to clinical improvement Vancomycin and metronidazole have been changed to fidaxomicin due to continuous multiple bowel movements. Patient has improvement in bowel movements today Acute on chronic CKD/nonanion gap metabolic acidosis Nephrology team on board Creatinine continues to improve. Diastolic CHF Diuretics on hold due to WILLIAM Echo 2019 reports LVEF 25%. Repeated echo showed Normal left ventricular (LV) size with ejection fraction of 60 to 65% with mild left ventricular hypertrophy (LVH). Preserved LV systolic function and grade 1 diastolic dysfunction Continue beta-andrey Deconditioning PT/OT Pernicious anemia B12 within normal limit Asymptomatic bacteriuria UA was positive for pyuria with Klebsiella species However patient did not have symptoms of dysuria Will not treat it with antibiotics especially in the light of C. difficile infection Hypertension Blood pressure elevated in the morning Norvasc 10 mg added to medical regimen VS,Fishbone, I+O VS, Fishbone, I+O Laboratory Tests 04/09/21 05:40 Vital Signs Date Time Temp Pulse Resp B/P (MAP) Pulse Ox O2 Delivery O2 Flow Rate FiO2 04/09/21 10:16 77 170/76 04/09/21 06:00 97.3 18 97 Room Air I&O- Last 24 Hours up to 6 AM 04/09/21 05:59 Intake Total 2470 ml Balance 2470 ml MED MORTENSEN DO Apr 09, 2021 14:14
--- NOTE | 2021-04-09 20:13 | IPN ---
PROGRESS NOTE DATE: 04/09/2021 SUBJECTIVE: The patient was seen and examined at the bedside today morning. He is afebrile, hemodynamically stable. He reports his diarrhea is getting better. Stools are more formed now. He is on Dificid. He continues to get IV fluid hydration and renal function is very gradually improving. OBJECTIVE: Vital signs: Temperature is 97.6 degrees Fahrenheit, blood pressure 154/66, pulse is 65, respiratory rate of 18, saturating 98% on room air. Intake and output: Urine output is not recorded. However, he has had three voids so far and he has had two bowel movements since overnight. Says his diarrhea is slowing down. Weight in the bed scale is not available. PHYSICAL EXAMINATION: General: The patient is awake, alert, oriented x 3, lying in bed in no apparent distress. Head and neck examination: Extraocular muscles are intact. Pupils equally round and reactive to light. Mucous membranes are moist. Neck is supple. There is no jugular venous distention (JVD). Cardiovascular: S1, S2 regular. No significant edema of the bilateral lower extremities. Respiratory: Chest is clear to auscultation bilaterally. Bilateral equal air entry. No rales or rhonchi. Abdomen is soft. Very mildly tender to deep palpation in left lower quadrant. BURLAP ROLL COVERER: No focal deficits. Power is 5/5 in all extremities. LABORATORY DATA: Complete blood count (CBC) showed a WBC of 6.7, hemoglobin 9.7, platelets are 150. Basic metabolic panel (BMP) showed sodium 135, potassium 3.5, chloride 105, bicarbonate 24, BUN 80, creatinine is 4.5, it was 5.2 yesterday. CURRENT INPATIENT MEDICATIONS: The patient's medications were all reviewed by myself. He continues to be on IV fluids containing potassium chloride and sodium bicarbonate. I see that he has been started on amlodipine for high blood pressure. He continues to be on Dificid for Clostridium difficile colitis. ASSESSMENT: 1. Acute renal failure superimposed on chronic kidney disease stage IV. The patient's renal function is gradually improving. His electrolytes are getting better. There is no urgent need for hemodialysis at this time. Continue IV fluid hydration. 2. Normal anion gap metabolic acidosis. The patient's diarrhea is resolving. Acidosis is also resolving. The patient is getting last bag of IV fluid containing bicarbonate. 3. Clostridium difficile colitis. He is responding to Dificid now. 4. Congestive heart failure with preserved ejection fraction with grade 1 diastolic dysfunction. The patient is on metoprolol. He has been started on amlodipine for high blood pressure and as mentioned above, fluids will be stopped after he finishes the last bag of bicarbonate fluid. 5. Positive urine cultures. The patient is not being treated at this time because of active Clostridium difficile colitis.
[2021-04-09 22:00] VITALS: BP 138/78
[2021-04-10 06:00] VITALS: BP 148/72
[2021-04-10 06:36] LABS: BASO % 0.1 % (0.0-1.0); EOS % 0.2 % (0.0-3.0); HEMATOCRIT 32.8 % (42.0-52.0); HEMOGLOBIN 11.2 g/dl (13.5-17.5); LYMPH # 0.7 10^3/uL (1.5-5.0); LYMPH % 7.9 % (24.0-44.0); MEAN CORPUSCULAR HEMOGLOBIN 30.9 pg (27.0-33.0); MEAN CORPUSCULAR HGB CONC 34.1 g/dl (32.0-36.5); MEAN CORPUSCULAR VOLUME 90.4 fl (80.0-96.0); MONO # 0.4 10^3/uL (0.0-0.8); MONO % 4.9 % (2.0-8.0); NEUTROPHILS # 7.1 10^3/uL (1.5-8.5); NEUTROPHILS % 86.5 % (36.0-66.0); PLATELET COUNT, AUTOMATED 188 10^3/uL (150-450); RED BLOOD COUNT 3.63 10^6/uL (4.30-6.10); WHITE BLOOD COUNT 8.2 10^3/uL (4.0-10.0)
[2021-04-10 06:52] LABS: CALCIUM LEVEL 7.3 MG/DL (8.8-10.2); CREATININE FOR GFR 4.22 MG/DL (0.70-1.30); GLOMERULAR FILTRATION RATE 14.3 (>35); POTASSIUM SERUM 4.1 MEQ/L (3.5-5.1)
[2021-04-10] MEDS: ASPIRIN 81MG ENTERIC TABLET PO SCH (09:52)
[2021-04-10] MEDS: FIDAXOMICIN 200 MG TAB (DIFICID) PO SCH (09:52)
[2021-04-10 09:53] VITALS: BP 142/69
[2021-04-10] MEDS: HEPARIN SOD (PORCINE) 5000UNITS/ML 1ML VIAL/SYRINGE SQ SCH (09:53)
[2021-04-10] MEDS: METOPROLOL SUCC *XL* 25MG TAB (TopROL *XL*) PO SCH (09:53)
[2021-04-10] MEDS ORDERED: DIFI200T PO (11:34)
--- NOTE | 2021-04-10 13:11 | IPN ---
PROGRESS NOTE DATE: 04/10/2021 SUBJECTIVE: Mr. Barrientos was seen and examined this morning at the bedside. He feels well. He denies any diarrhea. He denies any shortness of breath. He reports he was lightheaded when he first arrived to the hospital and this has completely resolved as well. He is off of IV fluids. He reports his bowel movements have formed. He wants to go home. He inquires about the discharge planning. His renal function improves daily, but is not yet back to baseline. OBJECTIVE: Vital signs: Temperature 97.2, pulse 71, respiratory rate 17, blood pressure 148/72, saturating 99% on room air. Intake yesterday was 1.9 liters. Weight in the bed scale today is not recorded. General: The patient is seen, awake, alert, oriented, lying in bed comfortable, elderly male in no distress. Extraocular muscles are intact. Tongue is moist. Neck is supple. Jugular veins are not elevated. Heart sounds are regular. There is systolic murmur. There is no peripheral edema. Lungs show symmetric air entry. He is comfortable on room air. There is no crackle or rale. Abdomen is soft and nontender. Neurologic: He is oriented x3, interactive and conversational and cooperative with physical examination. Extremities: There is no clubbing or cyanosis or edema. LABORATORY STUDIES: Show white count 8.2, hemoglobin 11.2, platelets 188, sodium 133, potassium 4.1, bicarbonate 27, BUN 68, creatinine 4.2, glucose 94. INPATIENT MEDICATIONS: He is on IV fluid. He is on amlodipine, aspirin, Dificid, metoprolol and heparin subcutaneous tissues. PROBLEMS: 1. Acute kidney injury superimposed on chronic kidney disease (CKD), stage IV. The patient's baseline glomerular filtration rate (GFR) is about 15 to 20 ml per minute with a baseline creatinine of around 3.5. He had an acute kidney injury in the setting of Clostridium difficile colitis. He has done well with IV fluid. His renal function has improved, but not yet back to baseline. There is no indication for dialysis at this time. His Clostridium difficile has also clinically improved and he is now off of IV fluid. His electrolytes and volume status are acceptable. His blood urea nitrogen has come down from 130 down to 68. 2. \Clostridium difficile colitis. The patient is receiving Dificid with good improvement. He reports bowel movements are formed. He is off of IV fluids. He is tolerating oral intake. 3. Hypertension. Systolic is mostly 130s to 150s and the patient is continued on amlodipine and metoprolol. 4. Chronic diastolic congestive heart failure (CHF). Echocardiogram on this admission noted with grade 1 diastolic dysfunction. There is no need for any diuretic at this time. He is also now off of IV fluids. His volume status is acceptable. 5. Normal anion gap metabolic acidosis. It was secondary to Clostridium difficile diarrhea and it has improved. He is off of bicarbonate containing fluids.
[2021-04-10] MEDS ORDERED: RANI15TA PO (13:55)
[2021-04-10 14:00] VITALS: BP 100/68
--- NOTE | 2021-04-10 17:58 | DS.PDOC ---
Discharge Summary General Date of Admission Apr 04, 2021 at 20:28 Date of Discharge 04/10/21 Discharge Summary PROCEDURES PERFORMED DURING STAY: [None]. ADMITTING DIAGNOSES: Fulminant C. difficile colitis Acute on chronic CKD/nonanion gap metabolic acidosis Diastolic CHF Deconditioning Pernicious anemia Asymptomatic bacteriuria Hypertension DISCHARGE DIAGNOSES: Fulminant C. difficile colitis Acute on chronic CKD/nonanion gap metabolic acidosis Diastolic CHF Deconditioning Pernicious anemia Asymptomatic bacteriuria Hypertension COMPLICATIONS/CHIEF COMPLAINT: Shane (Acute Kidney Injury). HISTORY OF PRESENT ILLNESS: Patient is 89 years old male with past medical history of TIA, migraines, CKD, pacemaker, CHF, pernicious anemia presented to hospital with diarrhea and generalized weakness. Patient was found to have C. difficile colitis HOSPITAL COURSE: Fulminant C. difficile colitis Abdominal x-ray showed some improvement:The mildly distended small bowel loops have decreased in size.The colon is not distended surgical team recommended to upgrade his diet due to clinical improvement Vancomycin and metronidazole have been changed to fidaxomicin due to continuous multiple bowel movements. Patient has improvement in bowel movements today Acute on chronic CKD/nonanion gap metabolic acidosis Nephrology team on board Creatinine continues to improve. Diastolic CHF Diuretics on hold due to SHANE Echo 2019 reports LVEF 25%. Repeated echo showed Normal left ventricular (LV) size with ejection fraction of 60 to 65% with mild left ventricular hypertrophy (LVH). Preserved LV systolic function and grade 1 diastolic dysfunction Continue beta-andrey Deconditioning PT/OT Pernicious anemia B12 within normal limit Asymptomatic bacteriuria UA was positive for pyuria with Klebsiella species However patient did not have symptoms of dysuria Will not treat it with antibiotics especially in the light of C. difficile infection Hypertension Blood pressure elevated in the morning Norvasc 10 mg added to medical regimen DISCHARGE MEDICATIONS: Please see below. ALLERGIES: Please see below. PHYSICAL EXAMINATION ON DISCHARGE: VITAL SIGNS: Please see below. GENERAL APPEARANCE: NAD HEENT: no scleral icterus, no JVD, EOMI CARDIOVASCULAR: S1S2 LUNGS: CTA ABDOMEN: soft & mildly tender w palpation, mildly distended MUSCULOSKELETAL: no cyanosis, no swelling INTEGUMENT: no generalized pallor NEUROLOGICAL: cranial nerve function from 2-12 intact, follows commands, speech not dysarthric LABORATORY DATA: Please see below. IMAGING: See above PROGNOSIS: Fair ACTIVITY: [As tolerated]. DIET: Renal DISPOSITION: Home, Self-Care. ITEMS TO FOLLOWUP ON ON OUTPATIENT: Follow-up with PCP Stop taking torsemide until discussion with PCP and finished treatment with fida xomicin DISCHARGE CONDITION: [Stable]. TIME SPENT ON DISCHARGE: 40minutes. Vital Signs/I&Os Vital Signs Date Time Temp Pulse Resp B/P (MAP) Pulse Ox O2 Delivery O2 Flow Rate FiO2 04/10/21 14:00 97.2 74 18 100/68 (79) 97 Room Air I&O- Last 24 Hours up to 6 AM 04/10/21 06:00 Intake Total 2510 ml Output Total 0 ml Balance 2510 ml Laboratory Data Labs 24H Laboratory Tests 2 04/10/21 05:52: Immature Granulocyte % (Auto) 0.4, Neutrophils (%) (Auto) 86.5H, Lymphocytes (%) (Auto) 7.9L, Monocytes (%) (Auto) 4.9, Eosinophils (%) (Auto) 0.2, Basophils (%) (Auto) 0.1, Neutrophils # (Auto) 7.1, Lymphocytes # (Auto) 0.7L, Monocytes # (Auto) 0.4, Eosinophils # (Auto) 0.0, Basophils # (Auto) 0.0, Nucleated Red Blood Cells % (auto) 0.0, Anion Gap 4L, Glomerular Filtration Rate 14.3L, Calcium Level 7.3L CBC/BMP Laboratory Tests 04/10/21 05:52 Microbiology Microbiology 04/05/21 Urine Culture - Final, Complete Klebsiella Oxytoca 04/04/21 Gastrointestinal Tract Panel (PCR) - Final, Complete Clostridium Difficile A/B Discharge Medications Scheduled Aspirin (Aspirin EC) 81 Mg Tab, 81 MG PO DAILY, (Reported) Calcitriol (Calcitriol) 0.25 Mcg Capsule, 0.25 MCG PO 3XW, (Reported) MON, WED, SAT Fidaxomicin (Dificid) 200 Mg Tablet, 200 MG PO BID Metoprolol Succinate (Metoprolol Succinate) 25 Mg Tab.er.24h, 25 MG PO DAILY, (Reported) Ranitidine Hcl (Ranitidine HCl) 150 Mg Tablet, 1 TAB PO BID Sodium Zirconium Cyclosilicate (Lokelma) 5 Gm Powd.pack, 5 GM PO QWEEK, (Reported) SUNDAYS Torsemide (Torsemide) 100 Mg Tablet, 50 MG PO DAILY, (Reported) Allergies Coded Allergies: ramipril (Verified Adverse Reaction, Mild, DIZZINESS, 05/30/20) MED MORTENSEN DO Apr 10, 2021 17:58
== END 2021-04-10 16:25 | disposition home health service (06) | DRG 372 ==
LOC: EDBD 15:08 → M ED 15:08 → M ED INP 20:28 → ENRESERV 21:38 → M MSPAV 22:49 → M PCU 04-05 10:55 → M MSPAV 04-06 13:19
PROVIDERS: ADMIT Internal Medicine; ATTEND Internal Medicine
DX: 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, not specified as recurrent (principal); N17.9 Acute kidney failure, unspecified; K56.7 Ileus, unspecified; E87.2 Acidosis; I50.32 Chronic diastolic (congestive) heart failure; N18.4 Chronic kidney disease, stage 4 (severe); N25.81 Secondary hyperparathyroidism of renal origin; I13.0 Hypertensive heart and chronic kidney disease with heart failure and stage 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, or unspecified chronic kidney disease; E83.42 Hypomagnesemia; D51.0 Vitamin B12 deficiency anemia due to intrinsic factor deficiency; Z86.73 Personal history of transient ischemic attack (TIA), and cerebral infarction without residual deficits; Z95.0 Presence of cardiac pacemaker; Z79.82 Long term (current) use of aspirin; Z79.899 Other long term (current) drug therapy; Z88.8 Allergy status to other drugs, medicaments and biological substances; G43.909 Migraine, unspecified, not intractable, without status migrainosus; Z87.891 Personal history of nicotine dependence

== ENCOUNTER 2021-05-11 10:17 | Inpatient (IN) | payer MEDICARE, OTHER ==
[~2021-05-11] VITALS: Ht 172.7 cm; Wt 59.4 kg
[~2021-05-11 10:17] MED LIST changes: +CALC1CAP31 PO; +DIFI200T PO; +LOKE5PAK PO; +METO1TAB32 PO; +RANI15TA PO; +TORS100T PO
[2021-05-11] MEDS: NS 1,000 ML IV SCH ×2 (11:27→18:53)
[2021-05-11 11:41] LABS: BASO % 0.1 % (0.0-1.0); EOS % 0.1 % (0.0-3.0); HEMATOCRIT 32.8 % (42.0-52.0); HEMOGLOBIN 10.6 g/dl (13.5-17.5); LYMPH # 0.4 10^3/uL (1.5-5.0); MEAN CORPUSCULAR HEMOGLOBIN 30.2 pg (27.0-33.0); MEAN CORPUSCULAR HGB CONC 32.3 g/dl (32.0-36.5); MEAN CORPUSCULAR VOLUME 93.4 fl (80.0-96.0); MONO # 0.5 10^3/uL (0.0-0.8); MONO % 6.4 % (2.0-8.0); NEUTROPHILS # 6.4 10^3/uL (1.5-8.5); PLATELET COUNT, AUTOMATED 296 10^3/uL (150-450); RED BLOOD COUNT 3.51 10^6/uL (4.30-6.10); WHITE BLOOD COUNT 7.4 10^3/uL (4.0-10.0)
[2021-05-11 12:28] LABS: ALBUMIN 2.5 GM/DL (3.2-5.2); BILIRUBIN,DIRECT 0.1 MG/DL (0.0-0.2); BILIRUBIN,TOTAL 0.3 MG/DL (0.2-1.0); MAGNESIUM LEVEL 1.6 MG/DL (1.8-2.4); PHOSPHORUS LEVEL 2.9 MG/DL (2.5-4.9)
[2021-05-11 12:44] LABS: RSV AMPLIFICATION NEGATIVE (NEGATIVE)
--- NOTE | 2021-05-11 13:12 | REP ---
INDICATION: abd pain COMPARISON: 06/27/2016. TECHNIQUE: CT Scan of the abdomen and pelvis was performed without intravenous contrast. Sagittal and coronal reconstruction images performed. FINDINGS: Lung bases: Mild fibrotic changes. Liver: Grossly unremarkable. Gallbladder: Unremarkable. Spleen: There is a subtle 5 cm hypodensity medially in the spleen which appears unchanged compared to the prior study. Adrenals: Normal. Pancreas: Grossly unremarkable.. Kidneys: There is mild right hydronephrosis and hydroureter. There is a calculus in the right renal pelvis which does not appear to be obstructive, measuring approximately 7 mm in diameter. There is a 2 cm cyst in the lower pole of the right kidney. There is moderate left hydroureteronephrosis. No other renal or ureteral calculus is seen bilaterally. Small and large bowel: There is diffuse colonic diverticulosis without evidence for diverticulitis. There is questionable thickening of the proximal duodenum which raises the possibility of duodenitis.. Free fluid: There is a tiny amount of perihepatic ascites. Abdominal aorta: No aneurysm. Adenopathy: None. Appendix: Not inflamed. Osseous structures: Unremarkable. Pelvis: No mass. No bladder calculus seen. There is diffuse thickening of the bladder wall. IMPRESSION: Mild right hydronephrosis and hydroureter, with a 7 mm nonobstructive calculus in the right renal pelvis. There is moderate left hydroureteronephrosis. No other evidence of renal or ureteral calculus bilaterally. There is diffuse bladder wall thickening. This could indicate cystitis. Diffuse colonic diverticulosis without evidence for diverticulitis. There is questionable thickening of the proximal duodenum which may indicate duodenitis. There is a tiny amount of perihepatic free fluid. <Electronically signed by Esteban Owen > 05/11/21 [id number]
[2021-05-11] MEDS ORDERED: TORS100T PO (14:42)
[2021-05-11] MEDS ORDERED: CYAN1000VL IM (14:42)
[2021-05-11] MEDS ORDERED: DIFI200T PO (14:42)
[2021-05-11] MEDS ORDERED: HOME MED LIST COMPLETE! XX SCH (14:45)
--- NOTE | 2021-05-11 16:08 | HPEPDOC ---
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 difficile colitis, ileus and acute renal failure presents to the ER with a 3-day history of recurrent copious diarrhea with approximately 10 watery bowel movements. Patient was last discharged from hospital on 04/10/2021 completed 17-day course of Dificid. He states he felt an improvement until 3 days ago when he has been having copious diarrhea with reduced oral intake of food and water. Patient lives with her 2 sons 1 of whom is blind. He lost his . He has a history of falls most recently 3 weeks ago. He endorses chronic weakness of the right lower extremity after his initial admission in September for AV blockade and transferred to [facility]. He denies any chest pain palpitations shortness of breath nausea vomiting or headaches. He is complaining of subjective fevers and chills. In the ER patient found to have a positive C. difficile on GI panel. His creatinine is 5.5 elevated from baseline of approximately 3.5. PAST MEDICAL HISTORY: AV block s/p pacemaker in 09/2020 at [facility] HFpEF LVEF 60-65 on recent echo 04/05/21. CKD Migraines TIA Type 2 DM, diet controlled. GERD PAST SURGICAL HISTORY: Pacemaker in 09/2020. Small bowel resection 2/2 SBO Appendectomy age 16. SOCIAL HISTORY: Former smoker Seldom drinks etoh, 1-2 beer per month Denies illicit drug use FAMILY HISTORY: Reviewed with patient, states a history of colon cancer in the family unable to specify. ALLERGIES: Please see below. REVIEW OF SYSTEMS: 10 point ROS conducted, relevant findings noted in HPI. HOME MEDICATIONS: Please see below. PHYSICAL EXAMINATION: VITAL SIGNS: please see below General: Older frail ill-appearing male HEENT: PERRLA, EOMI, sclerae clear Neck: supple, normal ROM, no JVD Respiratory: lungs CTAB, no wheeze, no rales, no crackles CVS: RRR, normal S1, S2, no murmurs Abdo: soft, no masses, no hepatosplenomegaly, BS+, no rebound tenderness Extremities: no edema, pulses 2+ MSK: no joint deformities, normal ROM Neuro: no focal neuro deficits, moving all 4 extremities, CN2-12 intact. Strength 5/5 in all 4 extremities. No nystagmus. Psych: calm, cooperative, AAO x 3 LABORATORY DATA: See below. IMAGING: CT abdo pelvis wo contrast (05/11/21): IMPRESSION: Mild right hydronephrosis and hydroureter, with a 7 mm nonobstructive calculus in the right renal pelvis. There is moderate left hydroureteronephrosis. No other evidence of renal or ureteral calculus bilaterally. There is diffuse bladder wall thickening. This could indicate cystitis. Diffuse colonic diverticulosis without evidence for diverticulitis. There is questionable thickening of the proximal duodenum which may indicate duodenitis. There is a tiny amount of perihepatic free fluid. MICROBIOLOGY: Please see below. ASSESSMENT: 89-year-old male with a past medical history of AV block status post pacemaker heart failure with reduced ejection fraction, CKD, migraines, TIA, recent C. difficile infection presented to the ER with 3-day history of copious watery diarrhea. Tested positive for C. difficile in the ER. To have an elevated creatinine as well as BUN in the ER. Will be admitted to hospitalist service for management of C. difficile colitis along with acute renal failure. Dr. Cha from nephrology has been consulted. Dr. Santiago from urology has been consulted given findings of bilateral hydronephrosis on CT imaging. . PLAN: C diff infection: 1st recurrence. S/p 17 days dificid. Resume dificid 200 mg BID. IV NS at 125 cc/hr. Zofran prn for nausea. Acute renal failure on CKD: possibly 2/2 c diff infection, dehydration vs component of hydronephrosis. Started on IV NS 150 cc/hr, c/w 125 cc/hr. inserte glynn. Monitor I and Os. UA ordered. Dr. Cha has been consulted. CT abdo pelvis reviewed. Bilateral hydronephrosis. See below Bilateral hydronephrosis: CT abdo pelvis reviewed. Mild R hydronephrosis and hydoureter, 7 mm non obstructing stone in R renal pelvis. Moderate L hydroureteronephrosis. Dr. Santiago from urology consulted. Recommendations are greatly appreciated. HFpEF: last echo 04/05/21. LVEF 60-65%. G1DD. Aortic and mitral sclerosis w/o functional impairment. Appears dehydrated. Will hold torsemide in setting of renal failure (takes 50 mg daily). Will c/w metoprolol XL 25 mg daily. AV block s/p pacemaker: rate appropriate. c/w Metoprolol as home med. HLD: c/w statin Type 2 DM: not on medication, diet controlled. ISS AC and HS. FSBS AC and HS. Dispo: pending clinical improvement. Vital Signs Vital Signs Date Time Temp Pulse Resp B/P (MAP) Pulse Ox O2 Delivery O2 Flow Rate FiO2 05/11/21 14:18 97.3 69 20 146/73 (97) 99 Room Air Laboratory Data Labs 24H Laboratory Tests 2 05/11/21 10:55: Immature Granulocyte % (Auto) 0.4, Neutrophils (%) (Auto) 87.0H, Lymphocytes (%) (Auto) 6.0L, Monocytes (%) (Auto) 6.4, Eosinophils (%) (Auto) 0.1, Basophils (%) (Auto) 0.1, Neutrophils # (Auto) 6.4, Lymphocytes # (Auto) 0.4L, Monocytes # (Auto) 0.5, Eosinophils # (Auto) 0.0, Basophils # (Auto) 0.0, Nucleated Red Blood Cells % (auto) 0.0, Phosphorus Level 2.9, Magnesium Level 1.6L, Total Bilirubin 0.3, Direct Bilirubin 0.1, Aspartate Amino Transf (AST/SGOT) 16, Alanine Aminotransferase (ALT/SGPT) 19, Alkaline Phosphatase 86, Total Protein 6.0L, Albumin 2.5L, Albumin/Globulin Ratio 0.7 05/11/21 10:56: POC Glucose (Misc Panel) 157H, POC Sodium (Misc Panel) 128L, POC Potassium (Misc Panel) 4.7, POC Chloride (Misc Panel) 89L, POC Total CO2 (Misc Panel) 26.0, POC Blood Urea Nitrogen (Misc Panel 129H, POC Ionized Calcium (Misc Panel) 4.4L, POC Creatinine (Misc Panel) 5.8H, POC Hematocrit (Misc Panel) 33.0L 05/11/21 11:19: Coronavirus (COVID-19)(PCR) NEGATIVE, Influenza Type A (RT-PCR) NEGATIVE, Influenza Type B (RT-PCR) NEGATIVE, Respiratory Syncytial Virus (PCR) NEGATIVE CBC/BMP Laboratory Tests 05/11/21 10:55 Microbiology Microbiology 05/11/21 Gastrointestinal Tract Panel (PCR) - Final, Complete Clostridium Difficile A/B Home Medications Scheduled Aspirin (Aspirin EC) 81 Mg Tab, 81 MG PO DAILY Calcitriol (Calcitriol) 0.25 Mcg Capsule, 0.25 MCG PO 3XW MON, WED, SAT Cyanocobalamin (Cyanocobalamin Injection) 1,000 Mcg/1 Ml Vial, 1,000 MCG IM ASDIRECTED EVERY 10 DAYS Fidaxomicin (Dificid) 200 Mg Tablet, 200 MG PO BID Metoprolol Succinate (Metoprolol Succinate) 25 Mg Tab.er.24h, 25 MG PO DAILY Sodium Zirconium Cyclosilicate (Lokelma) 5 Gm Powd.pack, 5 GM PO QWEEK SUNDAYS Torsemide (Torsemide) 100 Mg Tablet, 50 MG PO DAILY Allergies Coded Allergies: ramipril (Verified Adverse Reaction, Mild, DIZZINESS, 05/30/20) A-FIB/CHADSVASC A-FIB History Current/History of A-Fib/PAF?: No WILLIS ROGER MD May 11, 2021 16:08
[2021-05-11 16:13] LABS: ABG BASE EXCESS 0.3 (-2.0-2.0); ABG HCO3 24.3 MEQ/L (22.0-26.0); ABG PARTIAL PRESSURE CO2 36.5 mmHg (35.0-45.0); ABG PARTIAL PRESSURE O2 104.6 mmHg (75.0-100.0); ABG STANDARD HCO3 24.8 MEQ/L (22.0-26.0); ABG TOTAL CO2 25.4 MEQ/L (23.0-31.0); ABG pH (ARTERIAL) 7.441 UNITS (7.350-7.450)
--- NOTE | 2021-05-11 16:40 | SMCUROLCON ---
Urology Consultation General Date of Consultation 05/11/21 Reason For Consultation asked to see re bl hydroureteronephrosis and right renal stone in setting of elevated creatinine History of Present Illness 89yo fellow admitted with C diff colitis. Was recently in the hospital for the same. When discharged, creatinine was 4.22. Came in with creatinine of 8.5 on 04/04/21. Creatinine was 3.05 in 06/14. Creatinine 5.[address] without iv contrast today shows bl hydroureteronephrosis, left greater than right. Left is mild and right is less than that. Stone in renal pelvis on right but nonobstructing. U/s last month showed no hydronephrosis, by report. I reviewed today's ct. In addition to above, thickened bladder wall. Positive urine cx 04/05/21 Klebsiella. Wasn't treated, as per discharge summary, because of no symptoms. Medications Current Medications Current Medications Medications (Trade) Dose Ordered Sig/Rylan Route PRN Reason Start Time Stop Time Status Last Admin Dose Admin Acetaminophen (Tylenol Tab) 650 mg Q4H PRN PO MILD PAIN or TEMP > 101 05/11/21 15:15 Aspirin (Ecotrin) 81 mg DAILY PO 05/12/21 09:00 Cyanocobalamin (Vitamin B12 Injection) 1,000 mcg Q10D IM 05/14/21 09:00 Fidaxomicin (Dificid) 200 mg BID PO 05/11/21 21:00 Heparin Sodium (Porcine) (Heparin) 5,000 units Q8H SC 05/11/21 22:00 Home Med (Home Med List Complete!) ASDIRECTED XX 05/11/21 14:45 05/11/21 14:45 DC Metoprolol Succinate (TopROL XL) 25 mg DAILY PO 05/11/21 09:00 Sodium Chloride 1,000 ml @ 150 mls/hr Q6H40M IV 05/11/21 11:05 05/11/21 11:27 Allergies Allergies: Coded Allergies: ramipril (Verified Adverse Reaction, Mild, DIZZINESS, 05/30/20) Vital Signs/I&O Vital Signs Date Time Temp Pulse Resp B/P (MAP) Pulse Ox O2 Delivery O2 Flow Rate FiO2 05/11/21 14:18 97.3 69 20 146/73 (97) 99 Room Air Laboratory Data 24H Labs Laboratory Tests 2 05/11/21 10:55: Immature Granulocyte % (Auto) 0.4, Neutrophils (%) (Auto) 87.0H, Lymphocytes (%) (Auto) 6.0L, Monocytes (%) (Auto) 6.4, Eosinophils (%) (Auto) 0.1, Basophils (%) (Auto) 0.1, Neutrophils # (Auto) 6.4, Lymphocytes # (Auto) 0.4L, Monocytes # (Auto) 0.5, Eosinophils # (Auto) 0.0, Basophils # (Auto) 0.0, Nucleated Red Blood Cells % (auto) 0.0, Phosphorus Level 2.9, Magnesium Level 1.6L, Total Bilirubin 0.3, Direct Bilirubin 0.1, Aspartate Amino Transf (AST/SGOT) 16, Alanine Aminotransferase (ALT/SGPT) 19, Alkaline Phosphatase 86, Total Protein 6.0L, Albumin 2.5L, Albumin/Globulin Ratio 0.7 05/11/21 10:56: POC Glucose (Misc Panel) 157H, POC Sodium (Misc Panel) 128L, POC Potassium (Misc Panel) 4.7, POC Chloride (Misc Panel) 89L, POC Total CO2 (Misc Panel) 26.0, POC Blood Urea Nitrogen (Misc Panel 129H, POC Ionized Calcium (Misc Panel) 4.4L, POC Creatinine (Misc Panel) 5.8H, POC Hematocrit (Misc Panel) 33.0L 05/11/21 11:19: Coronavirus (COVID-19)(PCR) NEGATIVE, Influenza Type A (RT-PCR) NEGATIVE, Influenza Type B (RT-PCR) NEGATIVE, Respiratory Syncytial Virus (PCR) NEGATIVE 05/11/21 15:54: Blood Gas Bicarbonate Standard 24.8, Arterial Blood pH 7.441, Arterial Blood Partial Pressure CO2 36.5, Arterial Blood Partial Pressure O2 104.6H, Arterial Blood Total CO2 25.4, Arterial Blood HCO3 24.3, Arterial Blood Base Excess 0.3, Arterial Blood Oxygen Saturation 97.0 CBC/BMP Laboratory Tests 05/11/21 10:55 Microbiology Microbiology 05/11/21 Gastrointestinal Tract Panel (PCR) - Final, Complete Clostridium Difficile A/B Assessment Doubt pt's bl hydroureteronephrosis is contributing much to pt's elevated creatinine. Stone in right kidney is nonobstructing. Dilatation down to bladder on both sides suggests obstruction at level of uvj's. Thickened, trabeculated bladder wall can cause obstruction at uvj's. Bladder not terribly distended on ct. Bladder wall thickening is likely chronic though worsening by acute cystitis is a possibility. Plan Stone requires no intervention. Consider urethral catheter to r/o retention as cause of bl hydroureteronephrosis and elevation of creatinine. Would send urine for ua and cx. Will see pt tomorrow am. Thank you. [phone] ROLF HERNANDEZ MD May 11, 2021 16:40
[2021-05-11] MEDS: METOPROLOL SUCC *XL* 25MG TAB (TopROL *XL*) PO SCH (17:21)
[2021-05-11 18:00] VITALS: BP 153/67
[2021-05-11 19:56] LABS: CALCIUM LEVEL 8.2 MG/DL (8.8-10.2); CREATININE FOR GFR 4.96 MG/DL (0.70-1.30); GLOMERULAR FILTRATION RATE 11.8 (>35); PHOSPHORUS LEVEL 2.8 MG/DL (2.5-4.9); POTASSIUM SERUM 4.7 MEQ/L (3.5-5.1)
[2021-05-11 21:00] VITALS: BP 153/68
[2021-05-11] MEDS: FIDAXOMICIN 200 MG TAB (DIFICID) PO SCH (21:26)
[2021-05-11] MEDS: ACETAMINOPHEN TAB 650MG DOSE (2X325MG) PO PRN (21:26)
[2021-05-11] MEDS: HEPARIN SOD (PORCINE) 5000UNITS/ML 1ML VIAL/SYRINGE SC SCH (21:26)
[2021-05-12] MEDS: NS 1,000 ML IV SCH ×4 (01:33→22:53)
[2021-05-12] MEDS: HEPARIN SOD (PORCINE) 5000UNITS/ML 1ML VIAL/SYRINGE SC SCH ×3 (05:20→21:24)
[2021-05-12 06:00] VITALS: BP 148/62
[2021-05-12] MEDS ORDERED: FLUBLOK(EGG FREE)(QUAD)INFLUENZA VACC 0.5ML SYRINGE 18YRS & OLDER IM ONE (09:00)
[2021-05-12 09:40] LABS: BASO % 0.2 % (0.0-1.0); EOS % 0.2 % (0.0-3.0); HEMATOCRIT 29.1 % (42.0-52.0); HEMOGLOBIN 9.1 g/dl (13.5-17.5); LYMPH # 0.3 10^3/uL (1.5-5.0); LYMPH % 4.7 % (24.0-44.0); MEAN CORPUSCULAR HEMOGLOBIN 30.3 pg (27.0-33.0); MEAN CORPUSCULAR HGB CONC 31.3 g/dl (32.0-36.5); MONO # 0.3 10^3/uL (0.0-0.8); MONO % 5.5 % (2.0-8.0); NEUTROPHILS # 5.3 10^3/uL (1.5-8.5); NEUTROPHILS % 88.9 % (36.0-66.0); PLATELET COUNT, AUTOMATED 271 10^3/uL (150-450)
[2021-05-12 09:57] LABS: BILIRUBIN,TOTAL 0.4 MG/DL (0.2-1.0); CREATININE FOR GFR 4.62 MG/DL (0.70-1.30); GLOMERULAR FILTRATION RATE 12.8 (>35); MAGNESIUM LEVEL 1.5 MG/DL (1.8-2.4); PHOSPHORUS LEVEL 2.9 MG/DL (2.5-4.9); POTASSIUM SERUM 4.4 MEQ/L (3.5-5.1); TOTAL PROTEIN 5.3 GM/DL (6.4-8.2)
--- NOTE | 2021-05-12 10:00 | CR ---
CONSULTATION DATE: 05/11/2021 REQUESTING PHYSICIAN: Torres Carbone MD REASON FOR CONSULTATION: Acute renal failure superimposed on chronic kidney disease. HISTORY OF PRESENT ILLNESS: Mr. Barrientos is an 89-year-old gentleman with known history of chronic kidney disease, history of prior transient ischemic attack (TIA) and migraine headaches, history of AV block, status post pacemaker placement, history of diastolic congestive heart failure and recent hospitalization for Clostridium difficile colitis. The patient was treated and discharged to home. However, he reports that he continue to have loose stools; and over the last three days, he had copious amounts of diarrhea due to which he became very weak and presented to emergency room today. He was noted to have creatinine above 4 and BUN above 100. A nephrology consultation was requested and the patient is seen in the emergency room. MEDICAL HISTORY: Significant for: 1. History of chronic kidney disease. 2. History of diastolic congestive heart failure. 3. History of atrioventricular (AV) block status post pacemaker placement. 4. History of transient ischemic attack (TIA). 5. History of migraine headaches. 6. Type 2 diabetes, diet controlled. 7. History of Clostridium difficile colitis. 8. History of gastroesophageal reflux disease. SURGICAL HISTORY: Significant for pacemaker placement, small bowel resection and appendectomy. PERSONAL AND SOCIAL HISTORY: The patient is a former smoker, seldom drinks a beer or two. Denies any drug use. FAMILY HISTORY: Negative for any history of end-stage renal disease. There is no history of Clostridium difficile colitis in his family. MEDICATIONS: His home medications include aspirin 81 mg daily, calcitriol 0.25 mcg three times a week, vitamin B12 1000 mcg daily, Dificid 200 mg twice a day, metoprolol 25 mg daily, Lokelma 5 gm once a week and torsemide 50 mg daily. ALLERGIES: He has allergy to RAMIPRIL. REVIEW OF SYSTEMS: The patient denies any fevers or chills. He has been feeling very weak and reports copious amounts of diarrhea particularly for the last three days. Ears, nose and throat are unremarkable. Cardiovascular system is significant for diastolic congestive heart failure. He denies any leg edema. He has history of AV block and has a pacemaker in place. Respiratory system is negative for cough or hemoptysis. Gastrointestinal (GI) system as per history of present illness. History of Clostridium difficile colitis and reports to have diarrhea, but no vomiting. Genitourinary () system is negative for dysuria or hematuria. He reports decreased urine output. Endocrine system is significant for type 2 diabetes and secondary hyperparathyroidism. Hematological system significant for anemia and no exterminator helper termite anticoagulation. Psychosocial system: Negative for depression and anxiety. Neurological system is significant for prior transient ischemic attack (TIA) and bilateral lower extremity weakness. Skin is negative for rashes or ulcers. PHYSICAL EXAMINATION: Elderly gentleman lying in the stretcher in the emergency room without any acute distress. Temperature 97 degrees Fahrenheit, heart rate 62 per minute and respiratory rate 20 per minute. Blood pressure 144/68 mmHg. Oxygen saturation 98% on room air. Head is atraumatic. Neck supple and without jugular venous distention (JVD) or thyroid enlargement. Oral mucosa is somewhat dry and there is no thrush or ulcers. Pupils equal and reactive to light and sclerae anicteric. Heart sounds are regular and lungs clear to auscultation. Abdomen soft and nontender. Bowel sounds are normal. Extremities without any cyanosis or clubbing. Skin has no rash or ulcers. Neurologically, he is awake and without any focal deficit. LABORATORY DATA: His labs today showed a pH of 7.44 on the blood gas with pCO2 36.5, pO2 104.6 and bicarbonate 24.8. WBC count 7.4, hemoglobin 10.6 and hematocrit 33. Magnesium was 1.6, total protein 6.0 and albumin 2.5. Glucose 157, sodium 128, potassium 4.7, Co2 26, BUN 129 and creatinine 5.8. PROBLEMS: 1. Acute renal failure superimposed on chronic kidney disease. The patient has known history of stage III to stage IV chronic kidney disease at baseline. He is fairly dehydrated due to ongoing diarrhea over the last several days. I would recommend aggressive hydration with IV normal saline. He does not seem to have any significant metabolic acidosis, so at this point, bicarbonate infusion is not indicated. His renal profile will be repeated in a few hours and further adjustment made if needed. 2. Hyponatremia. Initial sodium level was slightly low; however, repeat sodium just came back 132. I would recommend to continue with IV normal saline. 3. Clostridium difficile colitis with diarrhea. The patient has been on Dificid and have failed. I would recommend infectious disease consultation as the patient is elderly and immunocompromised. He should probably get fecal transplant. 4. Anemia. His hemoglobin was 10.6 on admission while he is very dehydrated. With IV fluid hydration, his anemia is likely to get worse. At this point, there is no emergent need for a transfusion. 5. Protein calorie malnutrition. This is related to ongoing diarrhea. Will have to monitor him closely. Once his diarrhea improves, then he can probably increase his protein intake. 6. Congestive heart failure. Unfortunately, the patient was on diuretic at home and now he is very dehydrated. I agree to stop his diuretic for now. He is being hydrated with IV fluids due to dehydration. Thank you for involving me in the care of Mr. Barrientos. I will follow him along with you.
--- NOTE | 2021-05-12 10:12 | REP ---
INDICATION: vomiting. COMPARISON: CT 05/11/2021. TECHNIQUE: Portable AP supine view abdomen and pelvis. FINDINGS: Mildly dilated small bowel loops is seen in the upper abdomen. Mild scattered air and fecal material seen throughout the colon. There are scattered vascular calcifications. Surgical sutures are seen on the right. There are degenerative changes of the spine. IMPRESSION: Mildly dilated small bowel loops in the abdomen may indicate ileus versus is partial/early small bowel obstruction. Clinical correlation and follow-up recommended. <Electronically signed by Esteban Owen > 05/12/21 [id number]
[2021-05-12] MEDS: METOPROLOL SUCC *XL* 25MG TAB (TopROL *XL*) PO SCH (10:18)
[2021-05-12] MEDS: ASPIRIN 81MG ENTERIC TABLET PO SCH (10:18)
[2021-05-12] MEDS: FIDAXOMICIN 200 MG TAB (DIFICID) PO SCH ×2 (10:18→20:00)
[2021-05-12] MEDS: ACETAMINOPHEN TAB 650MG DOSE (2X325MG) PO PRN (10:20)
--- NOTE | 2021-05-12 11:50 | IPNPDOC ---
Date Seen The patient was seen on 05/12/21. Progress Note SUBJECTIVE: Patient was seen at bedside. Doing well overnight no acute events. He has refused Glynn insertion. RN tells me patient has phimosis and will be have difficult time placing Glynn. Currently has condom cath. Patient states that his diarrhea has improved he had about 3-4 bowel movement since admission versus 10+ bowel movements at home. Denies any chest pain palpitation shortness of breath nausea vomit diarrhea. Produced 550 cc UOP for past 24 hors. OBJECTIVE PHYSICAL EXAMINATION: VITAL SIGNS: please see below General: NAD, comfortable HEENT: PERRLA, EOMI, sclerae clear Neck: supple, normal ROM, no JVD Respiratory: lungs CTAB, no wheeze, no rales, no crackles CVS: RRR, normal S1, S2, no murmurs Abdo: soft, no masses, no hepatosplenomegaly, BS+, no rebound tenderness Extremities: no edema, pulses 2+ MSK: no joint deformities, normal ROM Neuro: no focal neuro deficits, moving all 4 extremities, CN2-12 intact. Strength 5/5 in all 4 extremities. No nystagmus. Psych: calm, cooperative, AAO x 3 LABORATORY DATA, IMAGING STUDIES, MICROBIOLOGY: Please see below. 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 difficile infection presented to the ER with 3-day history of copious watery diarrhea. Tested positive for C. difficile in the ER. To have an elevated creatinine as well as BUN in the ER. Will be admitted to hospitalist service for management of C. difficile colitis along with acute renal failure. Dr. Cha from nephrology has been consulted. Dr. Santiago from urology has been consulted given findings of bilateral hydronephrosis on CT imaging. . PLAN: C diff infection: 1st recurrence. S/p 17 days dificid. Resume dificid 200 mg BID. IV NS at 125 cc/hr. Zofran prn for nausea. Discussed with Dr. Cruz, to continue with dificid. Will need zinplava infusion on discharge. ID consult placed. Acute renal failure on CKD: possibly 2/2 c diff infection, dehydration vs component of hydronephrosis. Started on IV NS 150 cc/hr, c/w 125 cc/hr. Patient declined glynn, presently using condom catheter. Monitor I and Os. UA ordered. Dr. Cha has been consulted. CT abdo pelvis reviewed. Bilateral hy dronephrosis. UA+ LE, asymptomatic. Will hold off on treatment. Has prior hx of asymptomatic bacteruria. Bilateral hydronephrosis: CT abdo pelvis reviewed. Mild R hydronephrosis and hydoureter, 7 mm non obstructing stone in R renal pelvis. Moderate L hydroureteronephrosis. Dr. Santiago from urology consulted, does not recommend surgical intervention for bl hydronephrosis and R renal stone. Recommends to repeat renal US next week. Likely hydronephrosis due to thickened bladder wall. HFpEF: last echo 04/05/21. LVEF 60-65%. G1DD. Aortic and mitral sclerosis w/o functional impairment. Appears dehydrated. Will hold torsemide in setting of renal failure (takes 50 mg daily). Will c/w metoprolol XL 25 mg daily. AV block s/p pacemaker: rate appropriate. c/w Metoprolol as home med. HLD: c/w statin Type 2 DM: not on medication, diet controlled. ISS AC and HS. FSBS AC and HS. Dispo: pending clinical improvement. VS, I&O, 24H, [facility] Vital Signs/I&O Vital Signs Date Time Temp Pulse Resp B/P (MAP) Pulse Ox O2 Delivery O2 Flow Rate FiO2 05/12/21 10:18 62 155/65 05/12/21 06:00 97.9 16 98 Room Air I&O- Last 24 Hours up to 6 AM 05/12/21 06:00 Intake Total 1120 ml Output Total 725 ml Balance 395 ml Laboratory Data 24H LABS Laboratory Tests 2 05/11/21 15:54: Blood Gas Bicarbonate Standard 24.8, Arterial Blood pH 7.441, Arterial Blood Partial Pressure CO2 36.5, Arterial Blood Partial Pressure O2 104.6H, Arterial Blood Total CO2 25.4, Arterial Blood HCO3 24.3, Arterial Blood Base Excess 0.3, Arterial Blood Oxygen Saturation 97.0 05/11/21 17:28: Influenza A Immunofluorescence NEGATIVE, Influenza B Immunofluorescence NEGATIVE, SARS Antigen (LFIA) NEGATIVE 05/11/21 17:31: POC Group A Strep Rapid Screen NEGATIVE 05/11/21 19:17: Anion Gap 5L, Glomerular Filtration Rate 11.8L, Calcium Level 8.2L, Phosphorus Level 2.8, Albumin 2.0L 05/12/21 08:53: Immature Granulocyte % (Auto) 0.5, Neutrophils (%) (Auto) 88.9H, Lymphocytes (%) (Auto) 4.7L, Monocytes (%) (Auto) 5.5, Eosinophils (%) (Auto) 0.2, Basophils (%) (Auto) 0.2, Neutrophils # (Auto) 5.3, Lymphocytes # (Auto) 0.3L, Monocytes # (Auto) 0.3, Eosinophils # (Auto) 0.0, Basophils # (Auto) 0.0, Nucleated Red Blood Cells % (auto) 0.0, Anion Gap 6L, Glomerular Filtration Rate 12.8L, Calcium Level 8.0L, Phosphorus Level 2.9, Magnesium Level 1.5L, Total Bilirubin 0.4, Aspartate Amino Transf (AST/SGOT) 15, Alanine Aminotransferase (ALT/SGPT) 17, Alkaline Phosphatase 76, Total Protein 5.3L, Albumin 2.0L, Albumin/Globulin Ratio 0.6 05/12/21 10:27: Urine Color YELLOW, Urine Appearance CLOUDYH, Urine pH 6.0, Urine Specific [place] 1.009, Urine Protein 1+H, Urine Glucose (UA) NEGATIVE, Urine Ketones NEGATIVE, Urine Blood NEGATIVE, Urine Nitrite NEGATIVE, Urine Bilirubin NEGATIVE, Urine Urobilinogen 0.2, Urine Leukocyte Esterase 3+H, Urine WBC (Auto) TNTCH, Urine RBC (Auto) 7H, Urine Hyaline Casts (Auto) 0, Urine Bacteria (Auto) 1+H, Urine Squamous Epithelial Cells 1, Urine Mucus (Auto) SMALL, Urine Sperm (Auto) CBC/BMP Laboratory Tests 05/11/21 19:17 05/12/21 08:53 Microbiology Microbiology 05/12/21 Urine Culture, Received Pending 05/11/21 Gastrointestinal Tract Panel (PCR) - Final, Complete Clostridium Difficile A/B WILLIS ROGER MD May 12, 2021 11:50
--- NOTE | 2021-05-12 11:50 | IPNPDOC ---
Date Seen The patient was seen on 05/12/21. Progress Note pt seen and examined and chart reviewed avss 550 urine output yesterday creatinine still in 4's no leukocytosis pt using condom catheter no intervention needed for bl hydronephrosis and right renal stone at this time renal u/s next week d/w pt thank you [phone] VS, I&O, 24H, Fishbone Vital Signs/I&O Vital Signs Date Time Temp Pulse Resp B/P (MAP) Pulse Ox O2 Delivery O2 Flow Rate FiO2 05/12/21 10:18 62 155/65 05/12/21 06:00 97.9 16 98 Room Air I&O- Last 24 Hours up to 6 AM 05/12/21 05:59 Intake Total 1060 ml Output Total 600 ml Balance 460 ml Laboratory Data 24H LABS Laboratory Tests 2 05/11/21 15:54: Blood Gas Bicarbonate Standard 24.8, Arterial Blood pH 7.441, Arterial Blood Partial Pressure CO2 36.5, Arterial Blood Partial Pressure O2 104.6H, Arterial Blood Total CO2 25.4, Arterial Blood HCO3 24.3, Arterial Blood Base Excess 0.3, Arterial Blood Oxygen Saturation 97.0 05/11/21 17:28: Influenza A Immunofluorescence NEGATIVE, Influenza B Immunofluorescence NEGATIVE, SARS Antigen (LFIA) NEGATIVE 05/11/21 17:31: POC Group A Strep Rapid Screen NEGATIVE 05/11/21 19:17: Anion Gap 5L, Glomerular Filtration Rate 11.8L, Calcium Level 8.2L, Phosphorus Level 2.8, Albumin 2.0L 05/12/21 08:53: Immature Granulocyte % (Auto) 0.5, Neutrophils (%) (Auto) 88.9H, Lymphocytes (%) (Auto) 4.7L, Monocytes (%) (Auto) 5.5, Eosinophils (%) (Auto) 0.2, Basophils (%) (Auto) 0.2, Neutrophils # (Auto) 5.3, Lymphocytes # (Auto) 0.3L, Monocytes # (Auto) 0.3, Eosinophils # (Auto) 0.0, Basophils # (Auto) 0.0, Nucleated Red Blood Cells % (auto) 0.0, Anion Gap 6L, Glomerular Filtration Rate 12.8L, Calcium Level 8.0L, Phosphorus Level 2.9, Magnesium Level 1.5L, Total Bilirubin 0.4, Aspartate Amino Transf (AST/SGOT) 15, Alanine Aminotransferase (ALT/SGPT) 17, Alkaline Phosphatase 76, Total Protein 5.3L, Albumin 2.0L, Albumin/Globulin Ratio 0.6 05/12/21 10:27: Urine Color YELLOW, Urine Appearance CLOUDYH, Urine pH 6.0, Urine Specific [place] 1.009, Urine Protein 1+H, Urine Glucose (UA) NEGATIVE, Urine Ketones NEGATIVE, Urine Blood NEGATIVE, Urine Nitrite NEGATIVE, Urine Bilirubin NEGATIVE, Urine Urobilinogen 0.2, Urine Leukocyte Esterase 3+H, Urine WBC (Auto) TNTCH, Urine RBC (Auto) 7H, Urine Hyaline Casts (Auto) 0, Urine Bacteria (Auto) 1+H, Urine Squamous Epithelial Cells 1, Urine Mucus (Auto) SMALL, Urine Sperm (Auto) CBC/BMP Laboratory Tests 05/11/21 19:17 05/12/21 08:53 Microbiology Microbiology 05/12/21 Urine Culture, Received Pending 05/11/21 Gastrointestinal Tract Panel (PCR) - Final, Complete Clostridium Difficile A/B ROLF HERNANDEZ MD May 12, 2021 11:50
[2021-05-12 14:00] VITALS: BP 144/63
--- NOTE | 2021-05-12 17:08 | IPN ---
PROGRESS NOTE DATE: 05/12/2021 Mr. Barrientos is seen this morning on his bedside. He is feeling about the same. He now has a Boogie catheter, which is draining clear urine; however, there is only a small amount of urine in the bag. Patient reports that his diarrhea is better compared to last few days, however, still not resolved. He is now on Dificid, which he was taking even at home. He remains on intravenous (IV) fluid at 125 mL per hour. PHYSICAL EXAMINATION: Temperature 97.9 degrees Fahrenheit, heart rate 64 per minute, respiratory rate 16 per minute, blood pressure 148/62 mmHg, and oxygen saturation 98% on room air. Head is atraumatic. Neck supple and without jugular venous distention (JVD) or thyroid enlargement. There is no oral thrush or ulcers. Heart sounds are regular and lungs sound clear to auscultation. Abdomen has tenderness in the right abdomen, and bowel sounds are present. There is no palpable organomegaly. Extremities without any cyanosis or clubbing. Neurologically he is at his baseline mentation. Today's labs show urine with too numerous to count WBC and 7 RBC. He has 3+ leukocyte esterase. Sodium is 138, potassium 4.4, CO2 of 28, BUN 118, and creatinine 4.62. Glucose 103 and calcium 8.0. Total protein 5.3 and albumin 2.0. Hemoglobin 9.1 and hematocrit 29.1. PROBLEMS: 1. Acute kidney injury superimposed chronic kidney disease. Patient was quite dehydrated due to severe diarrhea for several days. He remains on intravenous (IV) normal saline at 125 mL per hour. Kidney function is slightly improved compared with yesterday. Now his urine output seems to be increasing, and I will recommend to continue with current IV fluid and also encourage oral intake of fluids. 2. Recurrent Clostridium (C) difficile colitis. Patient remains on Dificid as per recommendation from infectious disease. His diarrhea is improving. 3. Anemia. At present, anemia is slightly worse, as expected, with IV fluid hydration. We will continue to monitor and recheck his complete blood count (CBC) tomorrow. We will also check his iron studies. 4. Urinary tract infection (UTI). Patient does have urinalysis consistent with UTI. Urine culture is pending. We will wait for the culture report before considering antibiotic recommendation.
[2021-05-12 17:14] LABS: PERCENT SATURATION 24.5 % (19.7-50.0)
[2021-05-12] MEDS: LACTOBACILLUS ACIDOPHILUS CAP (BACID) PO SCH (17:56)
[2021-05-12] MEDS ORDERED: cefTRIAXone SOD 1 GM in D5W MINI-BAG PLUS 50 ML IV SCH (18:00)
[2021-05-12] MEDS: MAG SULF 1GM/100ML (MAG RUN) 1 GM in IV 1 EA IV SCH ×2 (20:00→21:24)
[2021-05-12 22:00] VITALS: BP 168/74
[2021-05-13] MEDS: HEPARIN SOD (PORCINE) 5000UNITS/ML 1ML VIAL/SYRINGE SC SCH ×3 (05:12→21:15)
[2021-05-13] MEDS: NS 1,000 ML IV SCH ×3 (05:21→21:16)
[2021-05-13 06:00] VITALS: BP 157/60
--- NOTE | 2021-05-13 08:53 | IPNPDOC ---
Subjective Review oF Systems Chief Complaint The patient is a 89-year-old male admitted with a reason for visit of Shane, Clostridium Difficile Diarrhea, Diarrhea. Events since Last Encounter Chart reviewed stool is less liquid. No complaints. Objective Physical Examination ABDOMEN EXAM: Normal bowel sounds, Soft; No: BS Hyperactive, BS Hypoactive, Tenderness, Hepatospenomegaly, Mass, Hernia, Other Vital Signs/I&O Vital Signs Date Time Temp Pulse Resp B/P (MAP) Pulse Ox O2 Delivery O2 Flow Rate FiO2 05/13/21 06:00 98.5 76 18 157/60 (92) 98 Room Air I&O- Last 24 Hours up to 6 AM 05/13/21 06:00 Intake Total 1760 ml Output Total 225 ml Balance 1535 ml Laboratory Data Labs 24H Laboratory Tests 2 05/12/21 08:53: Immature Granulocyte % (Auto) 0.5, Neutrophils (%) (Auto) 88.9H, Lymphocytes (%) (Auto) 4.7L, Monocytes (%) (Auto) 5.5, Eosinophils (%) (Auto) 0.2, Basophils (%) (Auto) 0.2, Neutrophils # (Auto) 5.3, Lymphocytes # (Auto) 0.3L, Monocytes # (Auto) 0.3, Eosinophils # (Auto) 0.0, Basophils # (Auto) 0.0, Nucleated Red Bl ood Cells % (auto) 0.0, Anion Gap 6L, Glomerular Filtration Rate 12.8L, Calcium Level 8.0L, Phosphorus Level 2.9, Magnesium Level 1.5L, Iron Level 48L, Total Iron Binding Capacity 196L, Transferrin % Saturation 24.5, Total Bilirubin 0.4, Aspartate Amino Transf (AST/SGOT) 15, Alanine Aminotransferase (ALT/SGPT) 17, Alkaline Phosphatase 76, Total Protein 5.3L, Albumin 2.0L, Albumin/Globulin Ratio 0.6 05/12/21 10:27: Urine Color YELLOW, Urine Appearance CLOUDYH, Urine pH 6.0, Urine Specific [place] 1.009, Urine Protein 1+H, Urine Glucose (UA) NEGATIVE, Urine Ketones NEGATIVE, Urine Blood NEGATIVE, Urine Nitrite NEGATIVE, Urine Bilirubin NEGATIVE, Urine Urobilinogen 0.2, Urine Leukocyte Esterase 3+H, Urine WBC (Auto) TNTCH, Urine RBC (Auto) 7H, Urine Hyaline Casts (Auto) 0, Urine Bacteria (Auto) 1+H, Urine Squamous Epithelial Cells 1, Urine Mucus (Auto) SMALL, Urine Sperm (Auto) CBC/BMP Laboratory Tests 05/12/21 08:53 Microbiology Microbiology 05/12/21 Urine Culture, Received Pending 05/11/21 Gastrointestinal Tract Panel (PCR) - Final, Complete Clostridium Difficile A/B Assessment/Plan Date Seen The patient was seen on 05/13/21. Patient Summary Pt is taking diet without complications. Plan/VTE VTE Prophylaxis Ordered?: Yes VTE Exclusion Mechanical Proph: Low Risk for VTE Plan Per service CLEO HEIN MD May 13, 2021 08:53
[2021-05-13 09:18] LABS: CALCIUM LEVEL 7.5 MG/DL (8.8-10.2); CREATININE FOR GFR 4.23 MG/DL (0.70-1.30); GLOMERULAR FILTRATION RATE 14.2 (>35); POTASSIUM SERUM 4.7 MEQ/L (3.5-5.1)
[2021-05-13] MEDS: LACTOBACILLUS ACIDOPHILUS CAP (BACID) PO SCH ×2 (10:13→18:05)
[2021-05-13] MEDS: ASPIRIN 81MG ENTERIC TABLET PO SCH (10:13)
[2021-05-13] MEDS: METOPROLOL SUCC *XL* 25MG TAB (TopROL *XL*) PO SCH (10:13)
[2021-05-13] MEDS: FIDAXOMICIN 200 MG TAB (DIFICID) PO SCH ×2 (10:13→21:15)
--- NOTE | 2021-05-13 11:19 | IPNPDOC ---
Date Seen The patient was seen on 05/13/21. Progress Note SUBJECTIVE: Patient was seen at bedside. Patient is sitting upright in bed tolerating full liquid diet. States he is having loose bowel movements but to lower frequency than prior to admission. Denies chest pain palpitations from diarrhea. With increased congestion continues to complain of mild right CVA tenderness. Passing gas and having bowel movements. No abdominal discomfort. Wants to advance diet. OBJECTIVE PHYSICAL EXAMINATION: VITAL SIGNS: please see below General: NAD, comfortable HEENT: PERRLA, EOMI, sclerae clear Neck: supple, normal ROM, no JVD Respiratory: lungs CTAB, no wheeze, no rales, no crackles CVS: RRR, normal S1, S2, no murmurs Abdo: soft, no masses, no hepatosplenomegaly, BS+, no rebound tenderness Extremities: no edema, pulses 2+ MSK: no joint deformities, normal ROM Neuro: no focal neuro deficits, moving all 4 extremities, CN2-12 intact. Strength 5/5 in all 4 extremities. No nystagmus. Psych: calm, cooperative, AAO x 3 LABORATORY DATA, IMAGING STUDIES, MICROBIOLOGY: Please see below. 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 difficile infection presented to the ER with 3-day his tory of copious watery diarrhea. Tested positive for C. difficile in the ER. To have an elevated creatinine as well as BUN in the ER. Will be admitted to hospitalist service for management of C. difficile colitis along with acute renal failure. Dr. Cha from nephrology has been consulted. Dr. Santiago from urology has been consulted given findings of bilateral hydronephrosis on CT imaging. . PLAN: C diff infection: 1st recurrence. S/p 17 days dificid. Resume dificid 200 mg BID. IV NS at 125 cc/hr. Zofran prn for nausea. Discussed with Dr. Cruz, to continue with dificid (day 2). Will need zinplava infusion on discharge. ID consult placed. Acute renal failure on CKD: possibly 2/2 c diff infection, dehydration vs component of hydronephrosis. Started on IV NS 150 cc/hr, c/w 125 cc/hr. Patient declined glynn, presently using condom catheter. Monitor I and Os. UA ordered. Dr. Cha has been consulted. CT abdo pelvis reviewed. Bilateral hydronephrosis. Bilateral hydronephrosis: CT abdo pelvis reviewed. Mild R hydronephrosis and hydoureter, 7 mm non obstructing stone in R renal pelvis. Moderate L hydroureteronephrosis. Dr. Santiago from urology consulted, does not recommend surgical intervention for bl hydronephrosis and R renal stone. Recommends to repeat renal US next week. Likely hydronephrosis due to thickened bladder wall. HFpEF: last echo 04/05/21. LVEF 60-65%. G1DD. Aortic and mitral sclerosis w/o functional impairment. Appears dehydrated. Will hold torsemide in setting of renal failure (takes 50 mg daily). Will c/w metoprolol XL 25 mg daily. Urinary tract infection: Last culture positive for Klebsiella 04/05/2021. UA now positive. Culture pending. Complaining of right CVA tenderness. Sensitive to fluoroquinolones. Will start on ciprofloxacin. Has received 1 day of ceftriaxone. Questionable ileus: Patient is passing gas having bowel movements no vomiting no nausea. He is tolerating for liquid diet. Would like us to advance diet. Will advance to regular diet. AV block s/p pacemaker: rate appropriate. c/w Metoprolol as home med. HLD: c/w statin Type 2 DM: not on medication, diet controlled. ISS AC and HS. FSBS AC and HS. Dispo: pending clinical improvement. VS, I&O, 24H, Fishbone Vital Signs/I&O Vital Signs Date Time Temp Pulse Resp B/P (MAP) Pulse Ox O2 Delivery O2 Flow Rate FiO2 05/13/21 10:13 69 121/49 05/13/21 06:00 98.5 18 98 Room Air I&O- Last 24 Hours up to 6 AM 05/13/21 06:00 Intake Total 1760 ml Output Total 225 ml Balance 1535 ml Laboratory Data 24H LABS Laboratory Tests 2 05/13/21 08:35: Anion Gap 7L, Glomerular Filtration Rate 14.2L, Calcium Level 7.5L CBC/BMP Laboratory Tests 05/13/21 08:35 Microbiology Microbiology 05/12/21 Urine Culture, Received Pending 9/16/21 Gastrointestinal Tract Panel (PCR) - Final, Complete Clostridium Difficile A/B WILLIS ROGER MD May 13, 2021 11:19
--- NOTE | 2021-05-13 11:29 | CR ---
CONSULTATION DATE: 05/13/2021 REASON FOR CONSULTATION: I was asked to consult by Torres Carbone MD for recurrent C. difficile colitis. HISTORY OF PRESENT ILLNESS: Mr. Barrientos is an 89-year-old gentleman with a history of C. difficile colitis diagnosed on April 04 with fulminant C. difficile treated with p.o. vancomycin 500 mg every six hours and IV Flagyl until 04/08. The patient was then switched to fidaxomicin and discharged home to finish the course of Dificid. The patient was treated for a total of 14 days for his first course of C. difficile with improvement of his symptoms. Three days prior to admission, he is feeling much worse with worsening diarrhea, decreased oral intake, severe weakness from diarrhea every hour. He had anorexia but no nausea or vomiting. The patient complained of subjective fever and chills. He denied any chest pain, palpitation. PAST MEDICAL HISTORY: 1. Chronic kidney disease stage 4. Creatinine on admission last admission was 8.5 on 04/04 and on discharge was 4.22. 2. Heart failure with preserved ejection fraction of 60-65%. 3. Chronic kidney disease. 4. Migraine. 5. TIA. 6. Type 2 diabetes, diet controlled. 7. Gastroesophageal reflux disease. His omeprazole had been on hold. PAST SURGICAL HISTORY: 1. Pacemaker, 10/15/20. 2. Small bowel resection due to adhesion. 3. Appendectomy at age 16. SOCIAL HISTORY: Former smoker, drinks occasionally 1-2 beers per month. Denies any illicit drug use. He lives with his two sons, one of whom is blind. He is a . FAMILY HISTORY: Colon cancer. ALLERGIES: RAMIPRIL. MEDICATIONS: 1. Rocephin 1 gm every 4 hours. 2. Metoprolol 25 mg p.o. daily. 3. Aspirin 81 mg p.o. daily. 4. Dificid 200 mg p.o. b.i.d. 5. Probiotic one tablet p.o. b.i.d. 6. Vitamin B12 1000 mcg IM every month. LABORATORY DATA: White count 6, hemoglobin 9.1, hematocrit 29.1, platelets 271, 89% neutrophils, 5% lymphocytes, 5% monocytes. Sodium 138, potassium 4.4, chloride 104, bicarb 28, BUN 118, creatinine 4.62, glucose 103, calcium 8, phosphorus 2.9, magnesium 1.5, iron 48, UIBC 196, iron saturation 24%, AST 15, ALT 15, alk phos 76, albumin 2. C. diff was positive initially on 04/04 and 05/11, C. diff positive on a GI panel here and culture on 04/05 was positive for Klebsiella oxytoca resistant to ampicillin, cefazolin, Unasyn and Zosyn. Urine culture this hospitalization is pending. CT, abdomen and pelvis done on 05/11 without IV contrast showed bilateral hydronephrosis, trabeculated bladder suggestive of cystitis, diffuse colonic diverticulosis without evidence of diverticulitis and possible duodenitis. There is also a 7 mm nonobstructive calculus in the right renal pelvis. PHYSICAL EXAMINATION: Vital Signs: Temperature is 98, pulse 76, respirations 18, blood pressure 144/63, O2 sat 98% on room air. Heart: Normal S1, S2, no murmurs, rubs or gallops appreciated. Left upper chest with pacemaker, nontender to touch. Head and ENT: Neck is supple, no JVD, no bruits, no carotid bruits and no thyroid enlargement, no thrush, dry mucosa. Lungs: Clear. No wheezes, rales or rhonchi. Abdomen: Soft, mildly tender in the right upper quadrant. Scar around the umbilical cord from adhesions, well healed. Extremities: No clubbing, cyanosis or edema. Neurologic: Alert and oriented x3. The patient is a good historian. He is slightly hard of hearing. Reviewed Dr. Cha's consultation who was questioning the need for stool transplantation. Due to the fact that he had bilateral hydronephrosis and cystitis, another urine culture has been ordered and the patient has been on IV Rocephin by the hospitalist team. He was also seen by urology in consultation for hydronephrosis and kidney stone. They recommended a Boogie catheter and no intervention for the renal stone. Renal ultrasound was reviewed from 04/05 which did not show any hydronephrosis and no renal calculi. IMPRESSION: This is an 89-year-old gentleman with a history of C. difficile colitis a month ago, treated with a combination of vancomycin, IV Flagyl followed by fidaxomicin for a total of 10 days who improved until three days prior to admission when his diarrhea recurred. The patient is admitted with severe dehydration, BUN over 100, weakness. He does not have any urinary symptoms except for the fact that he does have bilateral hydronephrosis which may be new compared to a renal ultrasound that was done a month ago where there was no evidence of hydronephrosis. The concern is that maybe the trabeculation and cystitis of the bladder may be the cause of his hydronephrosis. The patient's previous urine culture in March was positive for Klebsiella oxytoca and patient now receiving antibiotics as he was asymptomatic which is also the case this admission. He does not have any hematuria, dysuria or urinary symptoms. The patient has a Boogie catheter and doing well. PLAN: Continue Dificid 200 mg p.o. b.i.d. The patient will be treated for a total of 14 day course followed by a tapering schedule of daily for a week, every other day and then every third day. He will receive an infusion of IV bezlotoxumab upon discharge at a dose of 10 mg per kilogram, a total of 600 mg infusion. The patient has a history of heart failure with preserved ejection fraction. She was monitored for side effect of congestive heart failure with infusion. At this point, I would not stool transplantation. This is his first recurrence and stool transplants are not indicated until they fail second or third treatments. I am reluctant about treating for his urinary tract infection as he really does not have symptoms but there is a concern of the bilateral hydronephrosis and we will discuss with nephrology/urology repeating the renal ultrasound. Wait for result of urine culture and if we do treat his urinary tract infection, we will treat for a three day total at most and with the narrowest spectrum of antibiotic.
--- NOTE | 2021-05-13 13:02 | IPN ---
PROGRESS NOTE DATE: 05/13/2021 Mr. Barrientos is seen this morning on his bedside. He is feeling much better and reports that his diarrhea has improved. He denies any nausea or vomiting. He has no dyspnea or chest pain and remains on intravenous (IV) fluid. PHYSICAL EXAMINATION: Temperature 98.5 degrees Fahrenheit, heart rate 76 per minute, respiratory rate 18 per minute, blood pressure 121/49 mmHg, and oxygen saturation 98% on room air. Head is atraumatic. Neck supple and without jugular venous distention (JVD) or thyroid enlargement. Heart sounds are regular and lungs clear to auscultation. Abdomen soft with some tenderness in the right lower quadrant area. Bowel sounds are normal. Extremities without any cyanosis or clubbing. He still has no peripheral edema. Neurologically he is awake, alert, and oriented times three. Today's labs show sodium 137, potassium 4.7, CO2 of 25, BUN 105, and creatinine 4.23. Glucose 141 and calcium 7.5. PROBLEMS: 1. Acute kidney injury superimposed on chronic kidney disease. Patient had worsening kidney function due to dehydration. Now he is being hydrated with IV fluid, and kidney function is improving. At this point I will recommend to continue with current rate of IV fluid of 125 mL per hour. 2. Clostridium (C) difficile colitis. Patient is now being followed by Dr. Cruz, and diarrhea has already improved. 3. Anemia. Patient did have anemia with borderline iron studies. He has received a dose of iron. Anemia can be followed as an outpatient. 4. Urinary tract infection (UTI). Patient remains on ceftriaxone and is being followed by Dr. Cruz. He did have hydronephrosis on his ultrasound and CT scan. I am going to order a nuclear renal scan for Saturday in order to see if there is any obstruction and at what level.
[2021-05-13] MEDS: CIPROFLOXACIN 500MG TABLET PO SCH (13:05)
[2021-05-13 14:00] VITALS: BP 148/71
[2021-05-13 14:45] LABS: CALCIUM LEVEL 7.7 MG/DL (8.8-10.2); CREATININE FOR GFR 4.22 MG/DL (0.70-1.30); GLOMERULAR FILTRATION RATE 14.3 (>35); POTASSIUM SERUM 5.4 MEQ/L (3.5-5.1)
[2021-05-13 22:00] VITALS: BP 150/64
[2021-05-13 22:40] LABS: CALCIUM LEVEL 7.2 MG/DL (8.8-10.2); CREATININE FOR GFR 4.21 MG/DL (0.70-1.30); GLOMERULAR FILTRATION RATE 14.3 (>35); POTASSIUM SERUM 5.1 MEQ/L (3.5-5.1)
[2021-05-14 01:54] LABS: CREATININE FOR GFR 4.16 MG/DL (0.70-1.30); GLOMERULAR FILTRATION RATE 14.5 (>35); POTASSIUM SERUM 4.8 MEQ/L (3.5-5.1)
[2021-05-14] MEDS: HEPARIN SOD (PORCINE) 5000UNITS/ML 1ML VIAL/SYRINGE SC SCH ×3 (05:18→21:05)
[2021-05-14] MEDS: NS 1,000 ML IV SCH (05:18)
[2021-05-14 06:00] VITALS: BP 150/68
[2021-05-14 06:33] LABS: BASO % 0.2 % (0.0-1.0); EOS % 0.2 % (0.0-3.0); HEMATOCRIT 24.8 % (42.0-52.0); HEMOGLOBIN 7.7 g/dl (13.5-17.5); LYMPH # 0.3 10^3/uL (1.5-5.0); LYMPH % 5.2 % (24.0-44.0); MEAN CORPUSCULAR HEMOGLOBIN 30.4 pg (27.0-33.0); MONO # 0.3 10^3/uL (0.0-0.8); MONO % 4.7 % (2.0-8.0); NEUTROPHILS # 5.3 10^3/uL (1.5-8.5); NEUTROPHILS % 89.2 % (36.0-66.0); PLATELET COUNT, AUTOMATED 220 10^3/uL (150-450); RED BLOOD COUNT 2.53 10^6/uL (4.30-6.10)
[2021-05-14 07:09] LABS: CALCIUM LEVEL 7.2 MG/DL (8.8-10.2); CREATININE FOR GFR 4.09 MG/DL (0.70-1.30); GLOMERULAR FILTRATION RATE 14.8 (>35); MAGNESIUM LEVEL 1.7 MG/DL (1.8-2.4); POTASSIUM SERUM 4.8 MEQ/L (3.5-5.1); TROPONIN I 0.02 NG/ML (< 0.10)
[2021-05-14] MEDS ORDERED: CYANOCOBALAMIN 1,000MCG/ML VIAL (J3420) IM SCH (09:00)
[2021-05-14] MEDS: FIDAXOMICIN 200 MG TAB (DIFICID) PO SCH ×2 (09:34→21:04)
[2021-05-14] MEDS: LACTOBACILLUS ACIDOPHILUS CAP (BACID) PO SCH ×2 (09:34→17:33)
[2021-05-14] MEDS: ASPIRIN 81MG ENTERIC TABLET PO SCH (09:34)
[2021-05-14] MEDS: METOPROLOL SUCC *XL* 25MG TAB (TopROL *XL*) PO SCH (09:35)
[2021-05-14] MEDS ORDERED: NS 1,000 ML IV SCH (10:00)
[2021-05-14] MEDS: CIPROFLOXACIN 500MG TABLET PO SCH (11:13)
[2021-05-14] MEDS: MAG SULF 1GM/100ML (MAG RUN) 1 GM in IV 1 EA IV SCH ×2 (11:13→12:22)
--- NOTE | 2021-05-14 11:21 | IPNPDOC ---
Subjective Review oF Systems Chief Complaint The patient is a 89-year-old male admitted with a reason for visit of Shane, Clostridium Difficile Diarrhea, Diarrhea. Events since Last Encounter Patient stable throughout the last 24 hours. Voiding frequently and incontinent. General: Denies: ROS Unobtainable, Chills, Night Sweats, Fatigue, Malaise, Normal Appetite, Other Symptoms Gastrointestinal: Denies: Nausea, Vomiting, Abdominal Pain, Diarrhea, Constipation, Melena, Hematochezia, Other Symptoms Genitourinary: Reports: Dysuria, Frequency, Incontinence, Hematuria, Retention, Other Symptoms Objective Physical Examination General Exam: Alert, Cooperative, No Acute Distress, Mild Distress, Moderate Distress, Severe Distress, Other ABDOMEN EXAM: Normal bowel sounds, Soft; No: Tenderness, Hepatospenomegaly Vital Signs/I&O Vital Signs Date Time Temp Pulse Resp B/P (MAP) Pulse Ox O2 Delivery O2 Flow Rate FiO2 05/14/21 09:35 72 164/79 05/14/21 06:00 98.2 18 99 Room Air I&O- Last 24 Hours up to 6 AM 05/14/21 06:00 Intake Total 2740 ml Output Total 975 ml Balance 1765 ml Laboratory Data Labs 24H Laboratory Tests 2 05/13/21 13:38: Anion Gap 5L, Glomerular Filtration Rate 14.3L, Calcium Level 7.7L 05/13/21 21:58: Anion Gap 7L, Glomerular Filtration Rate 14.3L, Calcium Level 7.2L 05/14/21 01:16: Anion Gap 7L, Glomerular Filtration Rate 14.5L, Calcium Level 7.0L 05/14/21 06:19: Anion Gap 7L, Glomerular Filtration Rate 14.8L, Calcium Level 7.2L, Immature Granulocyte % (Auto) 0.5, Neutrophils (%) (Auto) 89.2H, Lymphocytes (%) (Auto) 5.2L, Monocytes (%) (Auto) 4.7, Eosinophils (%) (Auto) 0.2, Basophils (%) (Auto) 0.2, Neutrophils # (Auto) 5.3, Lymphocytes # (Auto) 0.3L, Monocytes # (Auto) 0.3, Eosinophils # (Auto) 0.0, Basophils # (Auto) 0.0, Nucleated Red Blood Cells % (auto) 0.0, Magnesium Level 1.7L, Troponin I 0.02 CBC/BMP Laboratory Tests 05/13/21 13:38 05/13/21 21:58 05/14/21 01:16 05/14/21 06:19 Microbiology Microbiology 05/12/21 Urine Culture - Final, Complete Klebsiella Oxytoca 05/11/21 Gastrointestinal Tract Panel (PCR) - Final, Complete Clostridium Difficile A/B Assessment/Plan Date Seen The patient was seen on 05/14/21. Patient Summary Pt. stable with incontinence. he has a hx of mild LUTS but have increased while in the hospital with IV 100cc/hr. Plan/VTE VTE Prophylaxis Ordered?: Yes VTE Exclusion Mechanical Proph: Low Risk for VTE Plan Re: Incontinence: Boogie cath placement may be of benefit but will colonize the urine with bacteria and may confuse the picture. However it has the potential of resolving issue of whether the bilat hydro is secondary to bladder outlet obstruction. Continue present care. CLEO HEIN MD May 14, 2021 11:21
[2021-05-14] MEDS ORDERED: LIDOCAINE 2% 5ML JELLY UROJET TOP ONE (12:30)
--- NOTE | 2021-05-14 12:43 | REP ---
INDICATION: sob, chest pain. COMPARISON: PA chest, 04/04/2021. TECHNIQUE: Upright AP portable chest image was obtained. FINDINGS: There is cardiomegaly, pulmonary venous hypertension and minimal pulmonary interstitial edema consistent with congestive heart failure. There is chronic elevation of the right hemidiaphragm. There are no significant pleural effusions identified. There is a dual lead pacemaker. IMPRESSION: Mild congestive heart failure. Dual lead pacemaker. <Electronically signed by Sukhi Corona > 05/14/21 [id number]
[2021-05-14 12:58] LABS: TROPONIN I 0.03 NG/ML (< 0.10)
[2021-05-14 13:54] LABS: CREATININE FOR GFR 3.83 MG/DL (0.70-1.30); GLOMERULAR FILTRATION RATE 15.9 (>35); POTASSIUM SERUM 5.1 MEQ/L (3.5-5.1)
--- NOTE | 2021-05-14 14:05 | IPN ---
NEPHROLOGY PROGRESS NOTE DATE: 05/11/2021 SUBJECTIVE: Mr. Barrientos is seen this morning on his bedside. He is not feeling well and reports that he has to get up frequently to urinate. Apparently, Boogie catheter could not be placed, as his foreskin has been very tight. Patient reports that his diarrhea has improved and he only has small stools with four bowel movements yesterday. He denies any nausea or vomiting. He is being treated for Clostridium (C) difficile colitis and urinary tract infection (UTI) at the same time. PHYSICAL EXAMINATION: VITAL SIGNS: Temperature 98.2 degrees Fahrenheit, heart rate 72 per minute, respiratory rate 18 per minute, blood pressure 150/68 mmHg, oxygen saturation 99% on room air. HEAD: Atraumatic. NECK: Supple and jugular venous distention (JVD) is now 7 cm above sternal angle. HEART SOUNDS: Regular. LUNGS: With a few basilar rales. ABDOMEN: Soft and mild tenderness. Bowel sounds are normal. EXTREMITIES: Without any cyanosis or clubbing. He does have 1+ edema on lower extremities, which is new. NEUROLOGIC: He is awake, alert and oriented times three. LABORATORY DATA: Today's labs show WBC 6.0, hemoglobin 7.7, hematocrit 24.8, platelets 220. Sodium 139, potassium 4.8, CO2 23, BUN 86, creatinine 4.09, glucose 95, calcium 7.2. A BNP level has just come back at 41,281. PROBLEMS: 1. Acute kidney injury superimposed on chronic kidney disease. Kidney function has improved since admission with aggressive intravenous (IV) fluid hydration. Patient seems to have significant underlying chronic kidney disease. His electrolytes are stable. 2. Congestive heart failure. Patient seems to be somewhat volume overloaded now due to IV fluids being given since admission. I am going to stop his IV fluids now and get a chest x-ray today. 3. Urinary retention and frequency. Patient reports frequent urination. We did a bladder scan at the bedside, which showed more than 400 mL postvoid residual. Patient will benefit from a catheter placement. I have been told by nursing staff that his foreskin was very tight and he could not get the catheter placed. I will defer to the hospitalist service for getting urology involved. 4. Anemia. His anemia is most likely multifactorial. He was very dehydrated on admission and has been aggressively hydrated and seems to now be overhydrated. I would recommend to hold off on transfusion at this point until he gets a Boogie catheter placed and gets rid of some of the fluid. 5. Clostridium (C) difficile. Patient remains on Dificid and is improving. 6. Urinary tract infection (UTI). Most likely, this is complicated with chronic urinary retention and he is likely to benefit from Boogie catheter placement. He has been on ceftriaxone and is being followed by infectious disease.
[2021-05-14] MEDS ORDERED: NEOSPORIN TOP OINT 15GM TOP ONE (14:15)
[2021-05-14] MEDS ORDERED: LIDOCAINE W/EPINEPHRINE 1% 20ML VIAL SC ONE (14:15)
--- NOTE | 2021-05-14 15:09 | ECGEPIP ---
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
--- NOTE | 2021-05-14 15:58 | ROOPDOC ---
[facility] Report Of Operation Report of Operation DATE OF PROCEDURE: 05/14/21 PREPROCEDURE DIAGNOSES: complete Phimosis and urinary retention. POSTPROCEDURE DIAGNOSES: Same . PROCEDURE PERFORMED: Bed side Dorsal slit and Boogie cath placement. SURGEON: Ulises Hein MD SKIFF OPERATOR: Kim Roy RN ANESTHESIA: Local (lidocaine with epi. ESTIMATED BLOOD LOSS: Approximately minimal. COMPLICATIONS: none. REMARKS: FINDINGS: SPECIMENS REMOVED: None PROCEDURE NOTE: . DESCRIPTION OF PROCEDURE: Procedure was discussed with the patient including risk and benefits. The options were provided to perform at bedside or in the operating room. Patient elected to have procedure performed at the bedside. Consent form was signed. Bedside time out was performed prior to procedure. Patient was prepped and draped in the standard sterile fashion. Sterile precaution were utilized throughout the procedure. after injecting 1% lidocaine with epi into the foreskin an attempt was made release the phimosis with a clamp. This was unsuccessful. Care was taken to protect the penile glans and urethra from injury throughout the procedure. After additional lido injection for a total of 10cc. A clamp was use on the dorsal aspect of the foreskin to provide pressure and to reduce bleeding risk. The clamp was released. The scissors were used to cut the foreskin along the clamp pressured area. This was repeated until the skin could be retracted and the penis was accessible for cath placement. Additional Betadine was placed on the penis. A Boogie cath was placed through the meatus of the penis and into the bladder. Cloudy urine drained and approx a 300 cc of urine was drained. The skin posterior and anterior layers of foreskin was reapproximated using a 3-0 chromic suture. Triple antibiotic ointment was placed on the suture. A running locked suture technique was used to reduce bleeding risk. This was perform on the right and left sides of slit. At the end of the case the penis was inspected and no injuries were noted to the penis or surrounding area. Patient was washed off after the dressing was removed. Boogie cath was draining and no bleeding at the edges of the incision were noted. ULISES HEIN MD May 14, 2021 15:58
--- NOTE | 2021-05-14 17:02 | IPNPDOC ---
Date Seen The patient was seen on 05/14/21. Progress Note SUBJECTIVE: Patient was seen at bedside. Patient is frustrated and is not feeling well. He states his diarrhea is improving. However he states that he has to get up frequently in order to urinate and has troubles with stream. Patient denies any nausea vomiting. He is having no chest pain. Reports mild shortness of breath which is new. OBJECTIVE PHYSICAL EXAMINATION: VITAL SIGNS: please see below General: NAD, comfortable HEENT: PERRLA, EOMI, sclerae clear Neck: supple, normal ROM, no JVD Respiratory: lungs CTAB, no wheeze, no rales, no crackles CVS: RRR, normal S1, S2, no murmurs Abdo: soft, no masses, no hepatosplenomegaly, BS+, no rebound tenderness Extremities: New 1+ pitting edema bilaterally, pulses 2+ MSK: no joint deformities, normal ROM Neuro: no focal neuro deficits, moving all 4 extremities, CN2-12 intact. Strength 5/5 in all 4 extremities. No nystagmus. Psych: calm, cooperative, AAO x 3 LABORATORY DATA, IMAGING STUDIES, MICROBIOLOGY: Please see below. 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 difficile infection presented to the ER with 3-day history of copious watery diarrhea. Tested positive for C. difficile in the ER. To have an elevated creatinine as well as BUN in the ER. Will be admitted to hospitalist service for management of C. difficile colitis along with acute renal failure. Dr. Cha from nephrology has been consulted. Dr. Santiago from urology has been consulted given findings of bilateral hydronephrosis on CT imaging. . PLAN: C diff infection: 1st recurrence. S/p 17 days dificid. Resume dificid 200 mg BID. IV NS at 125 cc/hr. Zofran prn for nausea. Discussed with Dr. Cruz, to continue with dificid (day 3). Will need zinplava infusion on discharge. ID consult placed. Acute renal failure on CKD: possibly 2/2 c diff infection, dehydration vs component of hydronephrosis.Dr. Cha has been consulted. Stopped IVF today is over hydrated. Due to urinary retention this morning Dr. Larson placed 18F coude cath, after a dorsal slit with sutures due to phimosis. We will repeat ultrasound to evaluate for hydronephrosis improvement Bilateral hydronephrosis: CT abdo pelvis reviewed. Mild R hydronephrosis and hydoureter, 7 mm non obstructing stone in R renal pelvis. Moderate L hydroureteronephrosis. Dr. Santiago from urology consulted, does not recommend surgical intervention for bl hydronephrosis and R renal stone. Repeat renal US next week. Discussed with Dr. Larson today. Patient has been having urinary retention likely from outlet obstruction. Boogie was inserted today. Performed a dorsal slit with sutures and a coud catheter was inserted. Urinary retention: Patient retaining over 4 and 50 cc of urine. Boogie catheter was inserted by Dr. Larson. HFpEF: last echo 04/05/21. LVEF 60-65%. G1DD. Aortic and mitral sclerosis w/o functional impairment. Appears dehydrated. Will hold torsemide in setting of renal failure (takes 50 mg daily). Will c/w metoprolol XL 25 mg daily. Urinary tract infection: Last culture positive for Klebsiella 04/05/2021. UA now positive. Culture pending. Complaining of right CVA tenderness. Sensitive to fluoroquinolones. Status post 1 day of ceftriaxone. Ordered 3D max doses of ciprofloxacin per Dr. Cruz. Questionable ileus: Tolerating diet. No evidence for obstruction or ileus. AV block s/p pacemaker: rate appropriate. c/w Metoprolol as home med. HLD: c/w statin Type 2 DM: not on medication, diet controlled. ISS AC and HS. FSBS AC and HS. Dispo: pending clinical improvement. VS, I&O, 24H, Fishbone Vital Signs/I&O Vital Signs Date Time Temp Pulse Resp B/P (MAP) Pulse Ox O2 Delivery O2 Flow Rate FiO2 05/14/21 09:35 72 164/79 05/14/21 06:00 98.2 18 99 Room Air I&O- Last 24 Hours up to 6 AM 05/14/21 06:00 Intake Total 2740 ml Output Total 975 ml Balance 1765 ml Laboratory Data 24H LABS Laboratory Tests 2 05/13/21 21:58: Anion Gap 7L, Glomerular Filtration Rate 14.3L, Calcium Level 7.2L 05/14/21 01:16: Anion Gap 7L, Glomerular Filtration Rate 14.5L, Calcium Level 7.0L 05/14/21 06:19: Anion Gap 7L, Glomerular Filtration Rate 14.8L, Calcium Level 7.2L, Immature Granulocyte % (Auto) 0.5, Neutrophils (%) (Auto) 89.2H, Lymphocytes (%) (Auto) 5.2L, Monocytes (%) (Auto) 4.7, Eosinophils (%) (Auto) 0.2, Basophils (%) (Auto) 0.2, Neutrophils # (Auto) 5.3, Lymphocytes # (Auto) 0.3L, Monocytes # (Auto) 0.3, Eosinophils # (Auto) 0.0, Basophils # (Auto) 0.0, Nucleated Red Blood Cells % (auto) 0.0, Magnesium Level 1.7L, Troponin I 0.02 05/14/21 11:55: Troponin I 0.03#, [id number]-Type Natriuretic Peptide [id number] 05/14/21 13:17: Anion Gap 7L, Glomerular Filtration Rate 15.9L, Calcium Level 7.0L CBC/BMP Laboratory Tests 05/13/21 21:58 05/14/21 01:16 05/14/21 06:19 05/14/21 13:17 Microbiology Microbiology 05/12/21 Urine Culture - Final, Complete Klebsiella Oxytoca 05/11/21 Gastrointestinal Tract Panel (PCR) - Final, Complete Clostridium Difficile A/B WILLIS ROGER MD May 14, 2021 17:02
[2021-05-14 20:30] LABS: CALCIUM LEVEL 7.2 MG/DL (8.8-10.2); CREATININE FOR GFR 3.69 MG/DL (0.70-1.30); GLOMERULAR FILTRATION RATE 16.6 (>35)
[2021-05-14] MEDS: TAMSULOSIN 0.4 MG CAP PO SCH (21:04)
[2021-05-14] MEDS: FINASTERIDE 5 MG TAB PO SCH (21:05)
[2021-05-14 22:00] VITALS: BP 148/71
[2021-05-15] VITALS (11 sets, daily range): BP systolic 118–162; BP diastolic 63–75
[2021-05-15 02:14] LABS: CALCIUM LEVEL 7.3 MG/DL (8.8-10.2); CREATININE FOR GFR 3.67 MG/DL (0.70-1.30); GLOMERULAR FILTRATION RATE 16.7 (>35); POTASSIUM SERUM 5.6 MEQ/L (3.5-5.1)
[2021-05-15] MEDS: HEPARIN SOD (PORCINE) 5000UNITS/ML 1ML VIAL/SYRINGE SC SCH ×3 (05:06→23:16)
[2021-05-15 06:16] LABS: EOS # 0.1 10^3/uL (0.0-0.5); EOS % 0.8 % (0.0-3.0); HEMATOCRIT 22.6 % (42.0-52.0); LYMPH # 0.4 10^3/uL (1.5-5.0); LYMPH % 5.8 % (24.0-44.0); MEAN CORPUSCULAR HEMOGLOBIN 30.3 pg (27.0-33.0); MEAN CORPUSCULAR VOLUME 97.8 fl (80.0-96.0); MONO # 0.2 10^3/uL (0.0-0.8); NEUTROPHILS # 5.4 10^3/uL (1.5-8.5); NEUTROPHILS % 88.9 % (36.0-66.0); PLATELET COUNT, AUTOMATED 213 10^3/uL (150-450); RED BLOOD COUNT 2.31 10^6/uL (4.30-6.10); WHITE BLOOD COUNT 6.1 10^3/uL (4.0-10.0)
--- NOTE | 2021-05-15 07:12 | REPVR ---
PROCEDURE INFORMATION: Exam: US Retroperitoneal Limited, Kidneys Exam date and time: 05/15/2021 6:39 AM Age: 89 years old Clinical indication: Abnormal findings; Abnormal radiologic finding of the abdomen; Radiologic exam and body structure: CT; Additional info: [place] TECHNIQUE: Imaging protocol: Real-time ultrasound of the retroperitoneum with image documentation. Examination was focused on the kidneys. COMPARISON: CT ABD PELVIS W/O CONTRAST 05/11/2021 12:20 PM FINDINGS: Limitations: Visibility of the kidneys is limited, related to body habitus. Right kidney: The right kidney parenchyma appears thinned and the echogenicity is increased. The right kidney measures 10.4 cm in length. There is relative prominence of the renal sinus fat. No hydronephrosis is seen. No gross masses or stones are identified. Left kidney: The left kidney parenchyma appears thinned and the echogenicity is increased. The left kidney measures 11.3 cm in length. There is relative prominence of the renal sinus fat. No hydronephrosis is seen. An extrarenal pelvis is present. No gross masses or stones are identified. Bladder: There is a Boogie catheter in the bladder. The bladder is collapsed, limiting assessment. IMPRESSION: 1. Limited visibility of the kidneys. Echogenic kidneys with thinning of the renal parenchyma bilaterally. No hydronephrosis. 2. Collapsed bladder with a Boogie catheter in the bladder. Electronically signed by: Judy Perez On 05/15/2021 07:12:06 AM
[2021-05-15] MEDS ORDERED: FUROSEMIDE 20MG/2ML VIAL (J1940) IV ONE (08:05)
[2021-05-15] MEDS: METOPROLOL SUCC *XL* 25MG TAB (TopROL *XL*) PO SCH (08:50)
[2021-05-15] MEDS: ASPIRIN 81MG ENTERIC TABLET PO SCH (08:50)
[2021-05-15] MEDS: FIDAXOMICIN 200 MG TAB (DIFICID) PO SCH ×2 (08:50→20:14)
[2021-05-15] MEDS: LACTOBACILLUS ACIDOPHILUS CAP (BACID) PO SCH ×2 (08:50→16:59)
[2021-05-15] MEDS ORDERED: PATIROMER SORBITEX CALCIUM 8.4 GM POWDER PACKET (VELTASSA) PO ONE (09:00)
[2021-05-15] MEDS ORDERED: NEOSPORIN TOP OINT 15GM TOP SCH (09:00)
--- NOTE | 2021-05-15 09:17 | IPNPDOC ---
Date Seen The patient was seen on 05/15/21. Progress Note pt seen and examined lying in be eating breakfast "feels good" avss bleeding from dorsal slit procedure creatinine down just a bit u/s shows no hydro catheter in uti Klebsiella on Cipro, tamsulosin, finasteride will put in 1 or 2 stitches to stop dorsal slit bleeding catheter to remain for now uti being treated continue bph meds thank you [phone] VS, I&O, 24H, Fishbone Vital Signs/I&O Vital Signs Date Time Temp Pulse Resp B/P (MAP) Pulse Ox O2 Delivery O2 Flow Rate FiO2 05/15/21 08:50 87 130/62 05/15/21 06:00 98.0 18 98 Room Air I&O- Last 24 Hours up to 6 AM 05/15/21 06:00 Intake Total 1665 ml Output Total 750 ml Balance 915 ml Laboratory Data 24H LABS Laboratory Tests 2 05/14/21 11:55: Troponin I 0.03#, TP-Gev-[id number]-Type Natriuretic Peptide [id number] 05/14/21 13:17: Anion Gap 7L, Glomerular Filtration Rate 15.9L, Calcium Level 7.0L 05/14/21 19:37: Anion Gap 6L, Glomerular Filtration Rate 16.6L, Calcium Level 7.2L 05/15/21 01:11: Anion Gap 5L, Glomerular Filtration Rate 16.7L, Calcium Level 7.3L 05/15/21 05:53: Immature Granulocyte % (Auto) 0.5, Neutrophils (%) (Auto) 88.9H, Lymphocytes (%) (Auto) 5.8L, Monocytes (%) (Auto) 4.0, Eosinophils (%) (Auto) 0.8, Basophils (%) (Auto) 0.0, Neutrophils # (Auto) 5.4, Lymphocytes # (Auto) 0.4L, Monocytes # (Auto) 0.2, Eosinophils # (Auto) 0.1, Basophils # (Auto) 0.0, Nucleated Red Blood Cells % (auto) 0.0, Magnesium Level 2.3 CBC/BMP Laboratory Tests 05/14/21 13:17 05/14/21 19:37 05/15/21 01:11 05/15/21 05:53 Microbiology Microbiology 05/12/21 Urine Culture - Final, Complete Klebsiella Oxytoca 05/11/21 Gastrointestinal Tract Panel (PCR) - Final, Complete Clostridium Difficile A/B ROLF HERNANDEZ MD May 15, 2021 09:17
[2021-05-15] MEDS ORDERED: LIDOCAINE 1% MDV 20ML VIAL As Ordered ONE (09:30)
[2021-05-15] MEDS ORDERED: LIDOCAINE 1% MDV 20ML VIAL SC ONE (09:35)
[2021-05-15 09:57] LABS: ALBUMIN 1.6 GM/DL (3.2-5.2); BILIRUBIN,TOTAL 0.2 MG/DL (0.2-1.0); CALCIUM LEVEL 7.6 MG/DL (8.8-10.2); CREATININE FOR GFR 3.77 MG/DL (0.70-1.30); GLOMERULAR FILTRATION RATE 16.2 (>35); MAGNESIUM LEVEL 2.1 MG/DL (1.8-2.4); POTASSIUM SERUM 4.9 MEQ/L (3.5-5.1); TOTAL PROTEIN 4.4 GM/DL (6.4-8.2)
--- NOTE | 2021-05-15 10:14 | IPNPDOC ---
Date Seen The patient was seen on 05/15/21. Progress Note few chromic stitches placed to stop oozing from dorsal slit anastamosis using sterile technique and local 2% lidocaine without epi no complications VS, I&O, 24H, Fishbone Vital Signs/I&O Vital Signs Date Time Temp Pulse Resp B/P (MAP) Pulse Ox O2 Delivery O2 Flow Rate FiO2 05/15/21 08:50 87 130/62 05/15/21 06:00 98.0 18 98 Room Air I&O- Last 24 Hours up to 6 AM 05/15/21 06:00 Intake Total 1665 ml Output Total 750 ml Balance 915 ml Laboratory Data 24H LABS Laboratory Tests 2 05/14/21 11:55: Troponin I 0.03#, VZ-Kzw-[id number]-Type Natriuretic Peptide [id number] 05/14/21 13:17: Anion Gap 7L, Glomerular Filtration Rate 15.9L, Calcium Level 7.0L 05/14/21 19:37: Anion Gap 6L, Glomerular Filtration Rate 16.6L, Calcium Level 7.2L 05/15/21 01:11: Anion Gap 5L, Glomerular Filtration Rate 16.7L, Calcium Level 7.3L 05/15/21 05:53: Immature Granulocyte % (Auto) 0.5, Neutrophils (%) (Auto) 88.9H, Lymphocytes (%) (Auto) 5.8L, Monocytes (%) (Auto) 4.0, Eosinophils (%) (Auto) 0.8, Basophils (%) (Auto) 0.0, Neutrophils # (Auto) 5.4, Lymphocytes # (Auto) 0.4L, Monocytes # (Auto) 0.2, Eosinophils # (Auto) 0.1, Basophils # (Auto) 0.0, Nucleated Red Blood Cells % (auto) 0.0, Magnesium Level 2.3 05/15/21 09:02: Magnesium Level 2.1, Anion Gap 5L, Glomerular Filtration Rate 16.2L, Calcium Level 7.6L, Total Bilirubin 0.2, Aspartate Amino Transf (AST/SGOT) 12, Alanine Aminotransferase (ALT/SGPT) 12, Alkaline Phosphatase 63, Total Protein 4.4L, Albumin 1.6L, Albumin/Globulin Ratio 0.6 CBC/BMP Laboratory Tests 05/14/21 13:17 05/14/21 19:37 05/15/21 01:11 05/15/21 05:53 05/15/21 09:02 Microbiology Microbiology 05/12/21 Urine Culture - Final, Complete Klebsiella Oxytoca 05/11/21 Gastrointestinal Tract Panel (PCR) - Final, Complete Clostridium Difficile A/B ROLF HERNANDEZ MD May 15, 2021 10:14
[2021-05-15] MEDS ORDERED: FUROSEMIDE 40MG/4ML VIAL (J1940) IV ONE (14:00)
[2021-05-15] MEDS: NEOSPORIN TOP OINT 15GM TOP SCH (16:56)
[2021-05-15] MEDS: TAMSULOSIN 0.4 MG CAP PO SCH (20:14)
[2021-05-15] MEDS: FINASTERIDE 5 MG TAB PO SCH (20:14)
--- NOTE | 2021-05-15 20:20 | IPNPDOC ---
Date Seen The patient was seen on 05/15/21. Progress Note SUBJECTIVE: Patient was seen at bedside. Overnight, bleeding from dorsal penile sutures. Hgb 7.0. Denies CP, SOB, n/v/d. Diarrhea improving. OBJECTIVE PHYSICAL EXAMINATION: VITAL SIGNS: please see below General: NAD, comfortable HEENT: PERRLA, EOMI, sclerae clear Neck: supple, normal ROM, no JVD Respiratory: lungs CTAB, no wheeze, no rales, no crackles CVS: RRR, normal S1, S2, no murmurs Abdo: soft, no masses, no hepatosplenomegaly, BS+, no rebound tenderness : bleeding from penile dorsal slit sutures. Extremities: New 1+ pitting edema bilaterally, pulses 2+ MSK: no joint deformities, normal ROM Neuro: no focal neuro deficits, moving all 4 extremities, CN2-12 intact. Strength 5/5 in all 4 extremities. No nystagmus. Psych: calm, cooperative, AAO x 3 LABORATORY DATA, IMAGING STUDIES, MICROBIOLOGY: Please see below. Renal US (05/15/21): IMPRESSION: 1. Limited visibility of the kidneys. Echogenic kidneys with thinning of the renal parenchyma bilaterally. No hydronephrosis. 2. Collapsed bladder with a Boogie catheter in the bladder DVT prophylaxis ordered?: Yes ASSESSMENT AND PLAN: 89-year-old male with a past medical history of AV block status post pacemaker heart failure with reduced ejection fraction, CKD, migraines, TIA, recent C. difficile infection presented to the ER with 3-day history of copious watery diarrhea. Tested positive for C. difficile in the ER. To have an elevated creatinine as well as BUN in the ER. Will be admitted to spitalist service for management of C. difficile colitis along with acute renal failure. Dr. Cha from nephrology has been consulted. Dr. Santiago from urology has been consulted given findings of bilateral hydronephrosis on CT imaging. Boogie cath inserted by Dr. Larson, due to phimosis. Required dorsal slit procedure. . PLAN: C diff infection: 1st recurrence. S/p 17 days dificid. Resume dificid 200 mg BID. IV NS at 125 cc/hr. Zofran prn for nausea. Discussed with Dr. Cruz, to continue with dificid (day 4). Will need zinplava infusion on discharge. ID consult placed. Acute renal failure on CKD: possibly 2/2 c diff infection, dehydration vs component of hydronephrosis.Dr. Cha has been consulted. Stopped IVF today is over hydrated. Due to urinary retention this morning Dr. Larson placed 18F coude cath, after a dorsal slit with sutures due to phimosis. Renal US 05/15 no hydro. Bleeding from foreskin s/p dorsal slit procedure: Dr. Santiago placed additional sutures. Bleeding controlled. Acute anemia: poss dilutional effect, worsened by bleeding from foreskin. Hgb 7.0. Transfuse 2 units pRBC. Bilateral hydronephrosis: CT abdo pelvis reviewed. Mild R hydronephrosis and hydoureter, 7 mm non obstructing stone in R renal pelvis. Moderate L hydroureteronephrosis. Urology consulted, likely hydro from outlet obstruction. Performed a dorsal slit with sutures and a coud catheter was inserted. renal US 05/15 hydro resolved. Urinary retention: Patient retaining over 450 cc of urine. Boogie catheter was inserted by Dr. Larson. HFpEF: last echo 04/05/21. LVEF 60-65%. G1DD. Aortic and mitral sclerosis w/o functional impairment. Appears dehydrated. Will hold torsemide in setting of renal failure (takes 50 mg daily). Will c/w metoprolol XL 25 mg daily. Urinary tract infection: Last culture positive for Klebsiella 04/05/2021. UA now positive. Culture pending. Complaining of right CVA tenderness. Sensitive to fluoroquinolones. Status post 1 day of ceftriaxone. Ordered 3 alexis max doses of ciprofloxacin per Dr. Cruz. Questionable ileus: Tolerating diet. No evidence for obstruction or ileus. AV block s/p pacemaker: rate appropriate. c/w Metoprolol as home med. HLD: c/w statin Type 2 DM: not on medication, diet controlled. ISS AC and HS. FSBS AC and HS. Dispo: pending clinical improvement. VS, I&O, 24H, Fishbone Vital Signs/I&O Vital Signs Date Time Temp Pulse Resp B/P (MAP) Pulse Ox O2 Delivery O2 Flow Rate FiO2 05/15/21 18:50 97.3 70 18 160/75 100 Room Air I&O- Last 24 Hours up to 6 AM 05/15/21 06:00 Intake Total 1665 ml Output Total 750 ml Balance 915 ml Laboratory Data 24H LABS Laboratory Tests 2 05/15/21 01:11: Anion Gap 5L, Glomerular Filtration Rate 16.7L, Calcium Level 7.3L 05/15/21 05:53: Immature Granulocyte % (Auto) 0.5, Neutrophils (%) (Auto) 88.9H, Lymphocytes (%) (Auto) 5.8L, Monocytes (%) (Auto) 4.0, Eosinophils (%) (Auto) 0.8, Basophils (%) (Auto) 0.0, Neutrophils # (Auto) 5.4, Lymphocytes # (Auto) 0.4L, Monocytes # (Auto) 0.2, Eosinophils # (Auto) 0.1, Basophils # (Auto) 0.0, Nucleated Red Blood Cells % (auto) 0.0, Magnesium Level 2.3 05/15/21 09:02: Anion Gap 5L, Glomerular Filtration Rate 16.2L, Calcium Level 7.6L, Magnesium Level 2.1, Total Bilirubin 0.2, Aspartate Amino Transf (AST/SGOT) 12, Alanine Aminotransferase (ALT/SGPT) 12, Alkaline Phosphatase 63, Total Protein 4.4L, Albumin 1.6L, Albumin/Globulin Ratio 0.6 CBC/BMP Laboratory Tests 05/15/21 01:11 05/15/21 05:53 05/15/21 09:02 Microbiology Microbiology 05/12/21 Urine Culture - Final, Complete Klebsiella Oxytoca 05/11/21 Gastrointestinal Tract Panel (PCR) - Final, Complete Clostridium Difficile A/B WILLIS ROGER MD May 15, 2021 20:20
--- NOTE | 2021-05-15 20:59 | IPNPDOC ---
Subjective CC/HPI The patient is a 89-year-old male admitted with a reason for visit of Shane, Clostridium Difficile Diarrhea, Diarrhea. Events since last encounter Pt reports bleeding from penile foreskin. Going to get 2 unit PRBC now. Hyperka lemia noted today. CHF on CXR yesterday. IVF were stopped. Renal function is stable General: Denies: ROS Unobtainable, Chills, Night Sweats, Fatigue, Malaise, Normal Appetite, Other Symptoms Constitutional: Denies: Chills, Fever, Malaise, Night Sweats, Weakness, Fatigue, Weight Loss, Lethargy, Other Eyes: Denies: Pain, Vision change, Conjunctivae inflammation, Eyelid inflammation, Redness, Other ENT: Denies: Head Aches, Ear Pain, Dysphagia, Sinus Congestion, Post Nasal Drip, Sore Throat, Epistaxis, Other Symptoms Skin: Denies: Rash, Lesions, Jaundice, Bruising, Itching, Dry, Breakdown, Nail Changes, Other Pulmonary: Denies: Dyspnea, Cough, Pleuritic Chest Pain, Other Symptoms Cardiovascular: Reports: Orthopnea; Denies: Chest Pain Gastrointestinal: Denies: Nausea, Vomiting, Abdominal Pain, Diarrhea, Constipation, Melena, Hematochezia, Other Symptoms Genitourinary: Reports: Other Symptoms (Urinary retention requiring Boogie and bleeing from foreskin) Hematologic: Denies: Bruising Endocrine: Denies: Polydipsia, Polyphagia, Polyuria, Heat Intolerance, Cold Intolerance, Other Endocrine Sx Musculoskeletal: Denies: Neck Pain, Back Pain, Shoulder Pain, Arm Pain, Hand Pain, Leg Pain, Foot Pain, Joint Pain, Muscle Pain, Spasms, Other Symptoms Neurological: Reports: Weakness Psych: Reports: Mood Normal Objective Physical Examination General Exam: Alert, No Acute Distress EYE EXAM: PERRLA, EOMI ENT EXAM: Atraumatic, Mucous membr. moist/pink Neck Exam: Supple; No: JVD Chest Exam: Clear to auscultation, Normal air movement Heart Exam: Rate Normal, Normal S1, Normal S2 ABDOMEN EXAM: Normal bowel sounds, Soft; No: Tenderness Male Exam: Discharge (bleeding from foreskin. New stitches noted, Indwelling Boogie.) Extremity Exam: No: Clubbing, Cyanosis Skin Exam: Nl turgor and temperature; No: Rash Neuro Exam: Normal Speech, Strength at 5/5 X4 ext Psych Exam: Mental status NL, Mood NL Vital Signs/I&O Vital Signs Date Time Temp Pulse Resp B/P (MAP) Pulse Ox O2 Delivery O2 Flow Rate FiO2 05/15/21 18:50 97.3 70 18 160/75 100 Room Air I&O- Last 24 Hours up to 6 AM 05/15/21 06:00 Intake Total 1665 ml Output Total 750 ml Balance 915 ml Laboratory Data Labs 24H Laboratory Tests 2 05/15/21 01:11: Anion Gap 5L, Glomerular Filtration Rate 16.7L, Calcium Level 7.3L 05/15/21 05:53: Immature Granulocyte % (Auto) 0.5, Neutrophils (%) (Auto) 88.9H, Lymphocytes (%) (Auto) 5.8L, Monocytes (%) (Auto) 4.0, Eosinophils (%) (Auto) 0.8, Basophils (%) (Auto) 0.0, Neutrophils # (Auto) 5.4, Lymphocytes # (Auto) 0.4L, Monocytes # (Auto) 0.2, Eosinophils # (Auto) 0.1, Basophils # (Auto) 0.0, Nucleated Red Blood Cells % (auto) 0.0, Magnesium Level 2.3 05/15/21 09:02: Anion Gap 5L, Glomerular Filtration Rate 16.2L, Calcium Level 7.6L, Magnesium Level 2.1, Total Bilirubin 0.2, Aspartate Amino Transf (AST/SGOT) 12, Alanine Aminotransferase (ALT/SGPT) 12, Alkaline Phosphatase 63, Total Protein 4.4L, Albumin 1.6L, Albumin/Globulin Ratio 0.6 05/15/21 20:32: CBC/BMP Laboratory Tests 05/15/21 01:11 05/15/21 05:53 05/15/21 09:02 Current Medications Current Medications Medications (Trade) Dose Ordered Sig/Rylan Route PRN Reason Start Time Stop Time Status Last Admin Dose Admin Acetaminophen (Tylenol Tab) 650 mg Q4H PRN PO MILD PAIN or TEMP > 101 05/11/21 15:15 05/12/21 10:20 Aspirin (Ecotrin) 81 mg DAILY PO 05/12/21 09:00 05/15/21 08:50 Ceftriaxone Sodium 1 gm/ Dextrose 50 ml @ 100 mls/hr Q24H IV 05/12/21 18:00 05/13/21 11:12 DC 05/12/21 17:56 Ciprofloxacin (Cipro) 500 mg Q24H PO 05/13/21 12:00 05/15/21 11:59 DC 05/14/21 11:13 Cyanocobalamin (Vitamin B12 Injection) 1,000 mcg Q10D IM 05/14/21 09:00 05/14/21 09:35 Fidaxomicin (Dificid) 200 mg BID PO 05/11/21 21:00 05/15/21 20:14 Finasteride (Proscar) 5 mg QHS PO 05/14/21 21:00 05/15/21 20:14 Heparin Sodium (Porcine) (Heparin) 5,000 units Q8H SC 05/11/21 22:00 05/15/21 16:56 Home Med (Home Med List Complete!) ASDIRECTED XX 05/11/21 14:45 05/11/21 14:45 DC Lactobacillus Acidophilus (Bacid) 1 ea BIDWM PO 05/12/21 18:00 05/15/21 16:59 Magnesium Sulfate/ Dextrose 1 gm/IV Miscellaneous Supplies 100 ml @ 100 mls/hr 1900,2000 IV 05/12/21 19:00 05/12/21 20:59 DC 05/12/21 21:24 Magnesium Sulfate/ Dextrose 1 gm/IV Miscellaneous Supplies 100 ml @ 100 mls/hr Q1H IV 05/14/21 11:00 05/14/21 12:59 DC 05/14/21 12:22 Metoprolol Succinate (TopROL XL) 25 mg DAILY PO 05/11/21 09:00 05/15/21 08:50 Neomycin/ Polymyxin/ Bacitracin (Neosporin) 1 dose DAILY TOP 05/15/21 09:00 05/15/21 16:56 Neomycin/ Polymyxin/ Bacitracin (Neosporin) apply to incision on penis DAILY TOP 05/15/21 09:00 05/14/21 15:39 DC Sodium Chloride 1,000 ml @ 100 mls/hr Q10H IV 05/14/21 10:00 05/14/21 11:30 DC 05/14/21 09:35 Sodium Chloride 1,000 ml @ 125 mls/hr Q8H IV 05/11/21 11:05 05/14/21 08:10 DC 05/13/21 21:16 Tamsulosin HCl (Flomax) 0.4 mg QHS PO 05/14/21 21:00 05/15/21 20:14 Allergies Coded Allergies: ramipril (Verified Adverse Reaction, Mild, DIZZINESS, 05/30/20) Assessment/Plan Date Seen The patient was seen on 05/15/21 at 20:53. Plan / VTE VTE Prophylaxis Ordered?: Yes VTE Exclusion Mechanical Proph: Low Risk for VTE Plan Orders past 48 Hours Orders Electrocardiogram Adult (05/14/21 06:45) Ns (Nacl 0.9%) (05/14/21 10:00) Mag Sulf 1gm/100ml (Mag Run) (Mag Sulf 1 (05/14/21 11:00) Bladder Scan (05/14/21 11:30) Tamsulosin Hcl (Flomax) (05/14/21 21:00) Finasteride (Proscar) (05/14/21 21:00) Troponin (05/14/21 11:39) Nt-Probnp (05/14/21 11:39) Portable Chest X-Ray (05/14/21 11:41) Lidocaine 2% Urojet (Lidocaine 2% Urojet (05/14/21 12:30) Urinary Catheter DOCUMENT BID (05/14/21 12:06) Lidocaine 1%/Epinephrine (Lidocaine 1%/E (05/14/21 14:15) Neomycin/Polymyx/Bacitr (Neosporin) (05/14/21 14:15) * Nursing Order * (05/14/21 13:58) Neomycin/Polymyx/Bacitr (Neosporin) (05/15/21 09:00) Neomycin/Polymyx/Bacitr (Neosporin) (05/15/21 09:00) Renal Us (05/15/21 06:00) Packed Cells (05/15/21 08:01) Transfuse Packed Cells (05/15/21 08:01) Type & Screen (05/15/21 08:01) Furosemide Injection (Lasix Injection) (05/15/21 08:05) Complete Comphrensive Metaboli (05/15/21 08:03) Magnesium Level (05/15/21 08:03) Lidocaine 1% Mdv 20ml (Lidocaine 1% Mdv (05/15/21 09:35) Furosemide Injection (Lasix Injection) (05/15/21 14:00) * Nursing Order * (05/15/21 12:47) Cbc With Differential (05/15/21 20:14) Plan Text Acute Renal Failure Klebsiella UTI C Diff colitis Anemia sec to bleeding Urinary Retention CHF Hyperkalemia IVF held. Lasix 40 mg between 2 unit PRBC. Foreskin bleed site stitched by urology. IV Abx finished. Dificid for C diff. Cont Boogie for now. K should improve with diuresis. Renal function gradually improving. DENILSON REED MD May 15, 2021 20:58
[2021-05-15 21:32] LABS: BASO % 0.2 % (0.0-1.0); EOS # 0.1 10^3/uL (0.0-0.5); HEMATOCRIT 33.8 % (42.0-52.0); LYMPH # 0.5 10^3/uL (1.5-5.0); LYMPH % 6.5 % (24.0-44.0); MEAN CORPUSCULAR HGB CONC 33.1 g/dl (32.0-36.5); MEAN CORPUSCULAR VOLUME 93.6 fl (80.0-96.0); MONO # 0.4 10^3/uL (0.0-0.8); MONO % 4.9 % (2.0-8.0); NEUTROPHILS % 86.8 % (36.0-66.0); PLATELET COUNT, AUTOMATED 184 10^3/uL (150-450); RED BLOOD COUNT 3.61 10^6/uL (4.30-6.10); WHITE BLOOD COUNT 8.1 10^3/uL (4.0-10.0)
[2021-05-15 21:51] LABS: HEMOGLOBIN 11.2 g/dl (13.5-17.5)
[2021-05-16 06:00] VITALS: BP 160/77
[2021-05-16 06:29] LABS: BASO % 0.3 % (0.0-1.0); EOS # 0.1 10^3/uL (0.0-0.5); EOS % 1.2 % (0.0-3.0); HEMATOCRIT 26.2 % (42.0-52.0); LYMPH # 0.4 10^3/uL (1.5-5.0); LYMPH % 6.3 % (24.0-44.0); MEAN CORPUSCULAR HEMOGLOBIN 30.7 pg (27.0-33.0); MEAN CORPUSCULAR HGB CONC 33.2 g/dl (32.0-36.5); MEAN CORPUSCULAR VOLUME 92.6 fl (80.0-96.0); MONO # 0.3 10^3/uL (0.0-0.8); MONO % 3.8 % (2.0-8.0); PLATELET COUNT, AUTOMATED 186 10^3/uL (150-450); RED BLOOD COUNT 2.83 10^6/uL (4.30-6.10); WHITE BLOOD COUNT 6.8 10^3/uL (4.0-10.0)
[2021-05-16 06:30] LABS: HEMOGLOBIN 8.7 g/dl (13.5-17.5)
[2021-05-16] MEDS: HEPARIN SOD (PORCINE) 5000UNITS/ML 1ML VIAL/SYRINGE SC SCH ×3 (07:00→21:09)
[2021-05-16] MEDS: LACTOBACILLUS ACIDOPHILUS CAP (BACID) PO SCH ×2 (09:14→18:16)
[2021-05-16] MEDS: ASPIRIN 81MG ENTERIC TABLET PO SCH (09:14)
[2021-05-16] MEDS: FIDAXOMICIN 200 MG TAB (DIFICID) PO SCH ×2 (09:14→21:09)
[2021-05-16] MEDS: NEOSPORIN TOP OINT 15GM TOP SCH (09:15)
[2021-05-16] MEDS: METOPROLOL SUCC *XL* 25MG TAB (TopROL *XL*) PO SCH (09:15)
[2021-05-16] MEDS ORDERED: FINA5TAB2 PO (10:46)
[2021-05-16] MEDS ORDERED: RISATAB3 PO (10:46)
[2021-05-16] MEDS ORDERED: FLOM0.4C39 PO (10:46)
--- NOTE | 2021-05-16 10:49 | IPN ---
PROGRESS NOTE DATE: 05/15/2021 SUBJECTIVE: Mr. Barrientos seems to be doing very well. He denies any fever or chills, no nausea, vomiting or diarrhea. No abdominal pain. He states he did not have a bowel movement today. He was getting a blood transfusion for hemoglobin 7 and hematocrit 22.6. White count 6.1. Platelets 213. Sodium 140, potassium 4.9, chloride 112, bicarb 23, BUN 78, creatinine 3.77, glucose 128, calcium 7.6. AST 12, ALT 12, alk phos 53. Urine culture was positive for Klebsiella oxytoca, resistant to Ampicillin, Cephazolin and Zosyn. The patient was treated with three days of combination IV Rocephin and Ciprofloxacin. He has a Boogie catheter draining clear urine. OBJECTIVE: HEART: Normal S1, S2. LUNGS: Clear, no wheezes, rhonchi or rales. ABDOMEN: Soft, nontender, no hepatosplenomegaly. EXTREMITIES; +1 pitting edema bilaterally. : Boogie catheter. IMPRESSION: 1. C. difficile colitis, first recurrence, status post Fidaxomicin treatment. The patient will continue with Fidaxomicin which has helped this time but the patient will be treated with tapering schedule over 6 weeks. This will be arranged through my office. He will be discharged also with IV Zinplava 10 mg per kg on the day of discharge to prevent risk of recurrence. The patient should be encouraged to eat Yogurt and take probiotics. 2. Urinary tract infection with urinary retention. The patient was treated with three days of appropriate antibiotics. Renal ultrasound showed no evidence of hydronephrosis on 05/15. Reviewed the note from Dr. Santiago. The patient had a dorsal procedure for phimosis and urinary retention at the bedside done by Dr. Larson. The catheter will remain in place until urology decides to give him a trial of voiding. PLAN: 1. Continue Fidaxomicin 200 mg PO twice daily, currently day #4 out of 14. Follow by daily regimen for one week, every other day for one week and then every third day for a couple of weeks. 2. Continue with probiotics with meals. 3. Consult PFS for IV infusion of Zinplava when patient ready for discharge.
[2021-05-16] MEDS ORDERED: TORS10TA3 PO (11:32)
--- NOTE | 2021-05-16 11:51 | DS.PDOC ---
Discharge Summary General Date of Admission May 11, 2021 at 15:12 Date of Discharge 05/17/21 - Patient remained inpatient for an additional day to help ensure that he has the support at home to assist with this Boogie catheter management Discharge Summary PROCEDURES PERFORMED DURING STAY: Surgical correction of Phimosis with Urology on 05/14 ADMITTING DIAGNOSES / DISCHARGE DIAGNOSES: Diarrhea - likely 2/2 C. diff (1st recurrence) WILLIAM on CKD3 - likely 2/2 pre-renal 2/2 Diarrhea, possibly component of hyd ronephrosis s/p Phimosis s/p Acute blood loss - 2/2 bleeding from foreskin Bilateral hydronephrosis - likely 2/2 outlet obstruction Urinary retention HFpEF Urinary tract infection Questionable ileus AV block s/p pacemaker DLP DM2 DVT prophylaxis COMPLICATIONS/CHIEF COMPLAINT: WILLIAM / Diarrhea HISTORY OF PRESENT ILLNESS: Patient is an 89-year-old male with a PMHx of AV block (s/p PM), Systolic CHF, CKD3, Migraines, Hx of TIA, Recent C. diff (on Dificid) who presented to the emergency room with 3 days of watery diarrhea. Patient was admitted to the hospital service for further evaluation and treatment. He was noted to have significant elevation of his creatinine compared to his baseline. Nephrology and infectious disease were called on consultation. Patient was seen and examined at the bedside. Currently denies any nausea, vomiting, chest pain, shortness breath, palpitations. Has not experience any pain. Reports that his diarrhea is doing better. Patient is a Boogie catheter in place with no further bleeding episodes noted around catheter. HOSPITAL COURSE: Diarrhea - likely 2/2 C. diff (1st recurrence) - Clinically patient has had improvement of his diarrhea - Patient remains hemodynamically stable and afebrile - No leukocytosis - c/w Dificid (Day #5) - will complete antibiotic course as an outpatient / Plan for Zinplava infusion on discharge - ID on consultation; appreciate their input WILLIAM on CKD3 - likely 2/2 pre-renal 2/2 Diarrhea, possibly component of hydr onephrosis - Continue the patient has been slowly improving - s/p IV fluids - s/p Boogie catheter placement and dorsal slit with sutures for phimosis - c/w Low dose torsemide for now - Nephrology and Urology on consultation; appreciate their input; will have outpatient follow-up within the next 7 days s/p Phimosis - s/p Surgical correction with Urology on 05/14 s/p Acute blood loss - 2/2 bleeding from foreskin - No further episodes of bleeding noted - s/p 2 units PRBC - Hg improved - Will ensure stability prior to discharge Bilateral hydronephrosis - likely 2/2 outlet obstruction - Imaging noted below - s/p Boogie and Phimosis correction - Urology on consultation; will discharge home with Boogie catheter and instructions to follow-up with urology within the next 7 days Urinary retention - s/p Boogie HFpEF - ECHO 04/05/21. LVEF 60-65%. G1DD. Aortic and mitral sclerosis w/o functional impairment - c/w Metoprolol and adjusted dose of Torsemide on discharge Urinary tract infection - Urine culture: Positive for Klebsiella 04/05/2021 - s/p Antibiotic therapy for UTI - ID on consultation; appreciate their input Questionable ileus - Tolerating oral diet - No evidence for obstruction or ileus= AV block s/p pacemaker - Remains asymptomatic - c/w Metoprolol DLP - c/w Statin DM2 - Diet controlled as an outpatient DVT prophylaxis - c/w TEDs/Sequentials (re: Acute blood loss anemia) DISCHARGE MEDICATIONS: Please see below. ALLERGIES: Please see below. PHYSICAL EXAMINATION ON DISCHARGE: Vitals (See below) General: Lying in bed, appears comfortable, AAOx3 HEENT: NC, AT CVS: +S1S2 Lungs: Fair air entry b/l, -w/r/r Abdomen: Soft, ND, NT Extremities: Trace to 1+ pitting edema, - Calf tenderness LABORATORY DATA: Please see below. IMAGING: CT abdomen / pelvis 05/11: Mild right hydronephrosis and hydroureter, with a 7 mm nonobstructive calculus in the right renal pelvis. There is moderate left hydroureteronephrosis. No other evidence of renal or ureteral calculus bilaterally. There is diffuse bladder wall thickening. This could indicate cystitis. Diffuse colonic diverticulosis without evidence for diverticulitis. There is questionable thickening of the proximal duodenum which may indicate duodenitis. There is a tiny amount of perihepatic free fluid. XR abdomen 05/12: Mildly dilated small bowel loops in the abdomen may indicate ileus versus is partial/early small bowel obstruction. Clinical correlation and follow-up recommended. CXR 05/14: Mild congestive heart failure. Dual lead pacemaker. Renal US (05/15/21): 1. Limited visibility of the kidneys. Echogenic kidneys with thinning of the renal parenchyma bilaterally. No hydronephrosis. 2. Collapsed bladder with a Boogie catheter in the bladder ACTIVITY: [As tolerated]. DISCHARGE PLAN: Follow-up with primary care provider, nephrology and urology within the next 7 days Remain compliant with treatment plan and medications Return to the ER if you experience any problems DISPOSITION: Home with services DISCHARGE CONDITION: [Stable]. TIME SPENT ON DISCHARGE: 35 minutes. Vital Signs/I&Os Vital Signs Date Time Temp Pulse Resp B/P (MAP) Pulse Ox O2 Delivery O2 Flow Rate FiO2 05/16/21 09:15 89 152/73 05/16/21 06:00 98.6 18 97 Room Air I&O- Last 24 Hours up to 6 AM 05/16/21 06:00 Intake Total 1470 ml Output Total 900 ml Balance 570 ml Laboratory Data Labs 24H Laboratory Tests 2 05/15/21 20:32: Immature Granulocyte % (Auto) 0.6, Neutrophils (%) (Auto) 86.8H, Lymphocytes (%) (Auto) 6.5L, Monocytes (%) (Auto) 4.9, Eosinophils (%) (Auto) 1.0, Basophils (%) (Auto) 0.2, Neutrophils # (Auto) 7.0, Lymphocytes # (Auto) 0.5L, Monocytes # (Auto) 0.4, Eosinophils # (Auto) 0.1, Basophils # (Auto) 0.0, Nucleated Red Blood Cells % (auto) 0.0 05/16/21 05:47: Immature Granulocyte % (Auto) 0.4, Neutrophils (%) (Auto) 88.0H, Lymphocytes (%) (Auto) 6.3L, Monocytes (%) (Auto) 3.8, Eosinophils (%) (Auto) 1.2, Basophils (%) (Auto) 0.3, Neutrophils # (Auto) 6.0, Lymphocytes # (Auto) 0.4L, Monocytes # (Auto) 0.3, Eosinophils # (Auto) 0.1, Basophils # (Auto) 0.0, Nucleated Red Blood Cells % (auto) 0.0, Magnesium Level 2.0 CBC/BMP Laboratory Tests 05/15/21 20:32 05/16/21 05:47 Microbiology Microbiology 05/12/21 Urine Culture - Final, Complete Klebsiella Oxytoca 05/11/21 Gastrointestinal Tract Panel (PCR) - Final, Complete Clostridium Difficile A/B Discharge Medications Scheduled Aspirin (Aspirin EC) 81 Mg Tab, 81 MG PO DAILY, (Reported) Calcitriol (Calcitriol) 0.25 Mcg Capsule, 0.25 MCG PO 3XW, (Reported) MON, SAT, SAT Cyanocobalamin (Cyanocobalamin Injection) 1,000 Mcg/1 Ml Vial, 1,000 MCG IM ASDIRECTED, (Reported) EVERY 10 DAYS Fidaxomicin (Dificid) 200 Mg Tablet, 200 MG PO BID, (Reported) Finasteride (Finasteride) 5 Mg Tablet, 5 MG PO QHS L.acidoph/L.bulg/B.bif/S.therm (Vilma-Bid Caplet) 1 Each Tablet, 1 EA PO BIDWM Metoprolol Succinate (Metoprolol Succinate) 25 Mg Tab.er.24h, 25 MG PO DAILY, (Reported) Sodium Zirconium Cyclosilicate (Lokelma) 5 Gm Powd.pack, 5 GM PO QWEEK, (Reported) SUNDAYS Tamsulosin HCl (Flomax) 0.4 Mg Capsule, 0.4 MG PO QHS Torsemide (Torsemide) 10 Mg Tablet, 10 MG PO DAILY Allergies Coded Allergies: ramipril (Verified Adverse Reaction, Mild, DIZZINESS, 05/30/20) BRI WAY MD May 16, 2021 11:51
--- NOTE | 2021-05-16 12:02 | IPNPDOC ---
Subjective CC/HPI The patient is a 89-year-old male admitted with a reason for visit of Shane, Clostridium Difficile Diarrhea, Diarrhea. Events since last encounter He feels better, no more bleed from Foreskin, Still indwelling Boogie. Renal fun ction is stable. s/p 2 unit PRBC yesterday. General: Reports: ROS Unobtainable; Denies: Chills, Night Sweats, Fatigue, Malaise, Normal Appetite, Other Symptoms Constitutional: Denies: Chills, Fever, Malaise, Night Sweats, Weakness, Fatigue, Weight Loss, Lethargy, Other Eyes: Denies: Pain, Vision change, Conjunctivae inflammation, Eyelid inflammation, Redness, Other ENT: Denies: Head Aches, Ear Pain, Dysphagia, Sinus Congestion, Post Nasal Drip, Sore Throat, Epistaxis, Other Symptoms Skin: Denies: Rash, Lesions, Jaundice, Bruising, Itching, Dry, Breakdown, Nail Changes, Other Pulmonary: Denies: Dyspnea, Cough, Pleuritic Chest Pain, Other Symptoms Cardiovascular: Denies: Chest Pain, Palpitations, Orthopnea, Paroxysmal Noc. Dyspnea, Edema, Lt Headedness, Other Symptoms Gastrointestinal: Denies: Nausea, Vomiting, Abdominal Pain, Diarrhea, Constipation, Melena, Hematochezia, Other Symptoms Genitourinary: Reports: Other Symptoms (Retention) Hematologic: Denies: Bruising, Bleeding Excessively, Petecchia, Purpura, Enlarged Lymph Nodes, Other Hematologic Endocrine: Denies: Polydipsia, Polyphagia, Polyuria, Heat Intolerance, Cold Intolerance, Other Endocrine Sx Musculoskeletal: Denies: Neck Pain, Back Pain, Shoulder Pain, Arm Pain, Hand Pain, Leg Pain, Foot Pain, Joint Pain, Muscle Pain, Spasms, Other Symptoms Neurological: Denies: Weakness, Numbness, Incoordination, Change in speech, Confusion, Seizures, Other Symptoms Psych: Reports: Mood Normal Objective Physical Examination General Exam: Alert, No Acute Distress EYE EXAM: PERRLA, EOMI ENT EXAM: Atraumatic, Mucous membr. moist/pink Neck Exam: Supple; No: JVD Chest Exam: Clear to auscultation, Normal air movement Heart Exam: Rate Normal, Normal S1, Normal S2 ABDOMEN EXAM: Normal bowel sounds, Soft; No: Tenderness Male Exam: Discharge (Indwelling Boogie.) Extremity Exam: Edema (1+ in ankles); No: Clubbing, Cyanosis Skin Exam: Nl turgor and temperature; No: Rash Neuro Exam: Normal Speech, Strength at 5/5 X4 ext Psych Exam: Mental status NL, Mood NL Vital Signs/I&O Vital Signs Date Time Temp Pulse Resp B/P (MAP) Pulse Ox O2 Delivery O2 Flow Rate FiO2 05/16/21 09:15 89 152/73 05/16/21 06:00 98.6 18 97 Room Air I&O- Last 24 Hours up to 6 AM 05/16/21 06:00 Intake Total 1470 ml Output Total 900 ml Balance 570 ml Laboratory Data Labs 24H Laboratory Tests 2 05/15/21 20:32: Immature Granulocyte % (Auto) 0.6, Neutrophils (%) (Auto) 86.8H, Lymphocytes (%) (Auto) 6.5L, Monocytes (%) (Auto) 4.9, Eosinophils (%) (Auto) 1.0, Basophils (%) (Auto) 0.2, Neutrophils # (Auto) 7.0, Lymphocytes # (Auto) 0.5L, Monocytes # (Auto) 0.4, Eosinophils # (Auto) 0.1, Basophils # (Auto) 0.0, Nucleated Red Blood Cells % (auto) 0.0 05/16/21 05:47: Immature Granulocyte % (Auto) 0.4, Neutrophils (%) (Auto) 88.0H, Lymphocytes (%) (Auto) 6.3L, Monocytes (%) (Auto) 3.8, Eosinophils (%) (Auto) 1.2, Basophils (%) (Auto) 0.3, Neutrophils # (Auto) 6.0, Lymphocytes # (Auto) 0.4L, Monocytes # (Auto) 0.3, Eosinophils # (Auto) 0.1, Basophils # (Auto) 0.0, Nucleated Red Blood Cells % (auto) 0.0, Magnesium Level 2.0 CBC/BMP Laboratory Tests 05/15/21 20:32 05/16/21 05:47 Current Medications Current Medications Medications (Trade) Dose Ordered Sig/Rylan Route PRN Reason Start Time Stop Time Status Last Admin Dose Admin Acetaminophen (Tylenol Tab) 650 mg Q4H PRN PO MILD PAIN or TEMP > 101 05/11/21 15:15 05/12/21 10:20 Aspirin (Ecotrin) 81 mg DAILY PO 05/12/21 09:00 05/16/21 09:14 Ceftriaxone Sodium 1 gm/ Dextrose 50 ml @ 100 mls/hr Q24H IV 05/12/21 18:00 05/13/21 11:12 DC 05/12/21 17:56 Ciprofloxacin (Cipro) 500 mg Q24H PO 05/13/21 12:00 05/15/21 11:59 DC 05/14/21 11:13 Cyanocobalamin (Vitamin B12 Injection) 1,000 mcg Q10D IM 05/14/21 09:00 05/14/21 09:35 Fidaxomicin (Dificid) 200 mg BID PO 05/11/21 21:00 05/16/21 09:14 Finasteride (Proscar) 5 mg QHS PO 05/14/21 21:00 05/15/21 20:14 Heparin Sodium (Porcine) (Heparin) 5,000 units Q8H SC 05/11/21 22:00 05/16/21 07:00 Home Med (Home Med List Complete!) ASDIRECTED XX 05/11/21 14:45 05/11/21 14:45 DC Lactobacillus Acidophilus (Bacid) 1 ea BIDWM PO 05/12/21 18:00 05/16/21 09:14 Magnesium Sulfate/ Dextrose 1 gm/IV Miscellaneous Supplies 100 ml @ 100 mls/hr 1900,1999 IV 05/12/21 19:00 05/12/21 20:59 DC 05/12/21 21:24 Magnesium Sulfate/ Dextrose 1 gm/IV Miscellaneous Supplies 100 ml @ 100 mls/hr Q1H IV 05/14/21 11:00 05/14/21 12:59 DC 05/14/21 12:22 Metoprolol Succinate (TopROL XL) 25 mg DAILY PO 05/11/21 09:00 05/16/21 09:15 Neomycin/ Polymyxin/ Bacitracin (Neosporin) 1 dose DAILY TOP 05/15/21 09:00 05/16/21 09:15 Neomycin/ Polymyxin/ Bacitracin (Neosporin) apply to incision on penis DAILY TOP 05/15/21 09:00 05/14/21 15:39 DC Sodium Chloride 1,000 ml @ 100 mls/hr Q10H IV 05/14/21 10:00 05/14/21 11:30 DC 05/14/21 09:35 Sodium Chloride 1,000 ml @ 125 mls/hr Q8H IV 05/11/21 11:05 05/14/21 08:10 DC 05/13/21 21:16 Tamsulosin HCl (Flomax) 0.4 mg QHS PO 05/14/21 21:00 05/15/21 20:14 Torsemide (Demadex) 10 mg DAILY PO 05/16/21 11:30 Allergies Coded Allergies: ramipril (Verified Adverse Reaction, Mild, DIZZINESS, 05/30/20) Assessment/Plan Date Seen The patient was seen on 05/16/21 at 12:00. Plan / VTE VTE Prophylaxis Ordered?: Yes VTE Exclusion Mechanical Proph: Low Risk for VTE Plan Orders past 48 Hours Orders Lidocaine 2% Urojet (Lidocaine 2% Urojet (05/14/21 12:30) Urinary Catheter DOCUMENT BID (05/14/21 12:06) Lidocaine 1%/Epinephrine (Lidocaine 1%/E (05/14/21 14:15) Neomycin/Polymyx/Bacitr (Neosporin) (05/14/21 14:15) * Nursing Order * (05/14/21 13:58) Neomycin/Polymyx/Bacitr (Neosporin) (05/15/21 09:00) Neomycin/Polymyx/Bacitr (Neosporin) (05/15/21 09:00) Renal Us (05/15/21 06:00) Packed Cells (05/15/21 08:01) Transfuse Packed Cells (05/15/21 08:01) Type & Screen (05/15/21 08:01) Furosemide Injection (Lasix Injection) (05/15/21 08:05) Complete Comphrensive Metaboli (05/15/21 08:03) Magnesium Level (05/15/21 08:03) Lidocaine 1% Mdv 20ml (Lidocaine 1% Mdv (05/15/21 09:35) Furosemide Injection (Lasix Injection) (05/15/21 14:00) * Nursing Order * (05/15/21 12:47) Cbc With Differential (05/15/21 20:14) Hemoglobin & Hematocrit (05/16/21 12:00) Discharge/Transfer Order (05/16/21 10:47) Patient Discharge Instruction (05/16/21 10:47) Torsemide (Demadex) (05/16/21 11:30) Transfer To Alc Status (05/16/21 11:32) Plan Text Acute Renal Failure C Diff colitis Anemia sec to bleeding Urinary Retention CHF s/p 2 unit PRBC.Hb better. IV Abx finished. Dificid for C diff.Patriciava as outpatient as per ID. Brendan Boogie for now. Renal function gradually improving. start torsemide 10 mg daily for edema DENILSON REED MD May 16, 2021 12:02
[2021-05-16] MEDS: TORSEMIDE 10 MG TABLET PO SCH (12:14)
[2021-05-16 13:54] LABS: HEMATOCRIT 25.1 % (42.0-52.0); HEMOGLOBIN 8.3 g/dl (13.5-17.5)
[2021-05-16 14:00] VITALS: BP 142/66
--- NOTE | 2021-05-16 14:00 | IPNPDOC ---
Date Seen The patient was seen on 05/16/21. Progress Note Patient seen and examined Lying comfortably in bed Afebrile vital signs stable I's and O's and labs noted It may be that creatinine has plateaued No more bleeding from the dorsal slit Patient transfused yesterday Catheter in place Catheter to remain for now Stay on tamsulosin and finasteride Local cystoscopy at some point VS, I&O, 24H, Fishbone Vital Signs/I&O Vital Signs Date Time Temp Pulse Resp B/P (MAP) Pulse Ox O2 Delivery O2 Flow Rate FiO2 05/16/21 09:15 89 152/73 05/16/21 06:00 98.6 18 97 Room Air I&O- Last 24 Hours up to 6 AM 05/16/21 05:59 Intake Total 1520 ml Output Total 950 ml Balance 570 ml Laboratory Data 24H LABS Laboratory Tests 2 05/15/21 20:32: Immature Granulocyte % (Auto) 0.6, Neutrophils (%) (Auto) 86.8H, Lymphocytes (%) (Auto) 6.5L, Monocytes (%) (Auto) 4.9, Eosinophils (%) (Auto) 1.0, Basophils (%) (Auto) 0.2, Neutrophils # (Auto) 7.0, Lymphocytes # (Auto) 0.5L, Monocytes # (Auto) 0.4, Eosinophils # (Auto) 0.1, Basophils # (Auto) 0.0, Nucleated Red Blood Cells % (auto) 0.0 05/16/21 05:47: Immature Granulocyte % (Auto) 0.4, Neutrophils (%) (Auto) 88.0H, Lymphocytes (%) (Auto) 6.3L, Monocytes (%) (Auto) 3.8, Eosinophils (%) (Auto) 1.2, Basophils (%) (Auto) 0.3, Neutrophils # (Auto) 6.0, Lymphocytes # (Auto) 0.4L, Monocytes # (Auto) 0.3, Eosinophils # (Auto) 0.1, Basophils # (Auto) 0.0, Nucleated Red Blood Cells % (auto) 0.0, Magnesium Level 2.0 CBC/BMP Laboratory Tests 05/15/21 20:32 05/16/21 05:47 05/16/21 13:40 Microbiology Microbiology 05/12/21 Urine Culture - Final, Complete Klebsiella Oxytoca 05/11/21 Gastrointestinal Tract Panel (PCR) - Final, Complete Clostridium Difficile A/B ROLF HERNANDEZ MD May 16, 2021 14:00
--- NOTE | 2021-05-16 19:45 | IPN ---
INFECTIOUS DISEASE PROGRESS NOTE DATE: 05/16/2021 SUBJECTIVE: Mr. Barrientos is doing very well. He wants to go home tomorrow. He has had no diarrhea. He has been seen by Urology, who recommended to keep the catheter in place until he is seen as an outpatient. He is on Tamsulosin and Finasteride. No bowel movements today. Yesterday he had two bowel movements. LABORATORY STUDIES: White count 6.8, hemoglobin 8.7, hematocrit 26.2, platelet count 186. Sodium 140, potassium 4.9, chloride 112, bicarbonate 23, BUN 78, creatinine 3.7, glucose 128, calcium 7.6, magnesium 2, AST 12, ALT 12, alkaline phosphatase 63. IMPRESSION: 1. Recurrent C-difficile colitis, on Fidaxomicin 200 mg p.o. twice daily, to be discharged with 28 tablets at home to be taken twice daily until May 25 and then daily until June 01 every other day until June 08 and then every 3rd day until June 22. The patient needs IV Zinplava on discharge, 600 mg dose will be written for tomorrow to be given at the infusion unit. 2. Urinary tract infection with Klebsiella - The patient was treated with 3 days of antibiotics and a Boogie catheter was placed. The patient did not have symptoms of a urinary tract infection except for urinary retention which was probably related to the phimosis. PLAN: 1. The patient is to follow up in my office in 2 weeks for C-difficile. 2. Recommend also probiotics.
[2021-05-16] MEDS: TAMSULOSIN 0.4 MG CAP PO SCH (21:09)
[2021-05-16] MEDS: FINASTERIDE 5 MG TAB PO SCH (21:09)
[2021-05-16 22:00] VITALS: BP 143/67
[2021-05-17 06:19] VITALS: BP_SYST 112; BP_SYST 140; BP_DIAS 64; BP_DIAS 65
[2021-05-17] MEDS: HEPARIN SOD (PORCINE) 5000UNITS/ML 1ML VIAL/SYRINGE SC SCH (06:20)
[2021-05-17 06:27] LABS: EOS # 0.1 10^3/uL (0.0-0.5); EOS % 1.3 % (0.0-3.0); HEMATOCRIT 25.3 % (42.0-52.0); HEMOGLOBIN 8.3 g/dl (13.5-17.5); LYMPH # 0.4 10^3/uL (1.5-5.0); LYMPH % 6.8 % (24.0-44.0); MEAN CORPUSCULAR HEMOGLOBIN 30.9 pg (27.0-33.0); MEAN CORPUSCULAR HGB CONC 32.8 g/dl (32.0-36.5); MEAN CORPUSCULAR VOLUME 94.1 fl (80.0-96.0); MONO # 0.3 10^3/uL (0.0-0.8); MONO % 4.4 % (2.0-8.0); NEUTROPHILS # 5.4 10^3/uL (1.5-8.5); NEUTROPHILS % 87.2 % (36.0-66.0); PLATELET COUNT, AUTOMATED 184 10^3/uL (150-450); RED BLOOD COUNT 2.69 10^6/uL (4.30-6.10); WHITE BLOOD COUNT 6.2 10^3/uL (4.0-10.0)
[2021-05-17 06:45] LABS: ALBUMIN 1.6 GM/DL (3.2-5.2); CALCIUM LEVEL 7.6 MG/DL (8.8-10.2); CREATININE FOR GFR 3.45 MG/DL (0.70-1.30); PHOSPHORUS LEVEL 2.3 MG/DL (2.5-4.9); POTASSIUM SERUM 5.3 MEQ/L (3.5-5.1)
[2021-05-17 06:47] LABS: CALCIUM LEVEL 7.7 MG/DL (8.8-10.2); CREATININE FOR GFR 3.59 MG/DL (0.70-1.30); GLOMERULAR FILTRATION RATE 17.2 (>35); MAGNESIUM LEVEL 1.9 MG/DL (1.8-2.4); POTASSIUM SERUM 5.2 MEQ/L (3.5-5.1)
[2021-05-17] MEDS ORDERED: FUROSEMIDE 20MG/2ML VIAL (J1940) As Ordered ONE (07:40)
[2021-05-17] MEDS: LACTOBACILLUS ACIDOPHILUS CAP (BACID) PO SCH (09:36)
[2021-05-17] MEDS: ASPIRIN 81MG ENTERIC TABLET PO SCH (09:36)
[2021-05-17] MEDS: TORSEMIDE 10 MG TABLET PO SCH (09:36)
[2021-05-17 09:37] VITALS: BP 123/70
[2021-05-17] MEDS: FIDAXOMICIN 200 MG TAB (DIFICID) PO SCH (09:37)
[2021-05-17] MEDS: NEOSPORIN TOP OINT 15GM TOP SCH (09:37)
[2021-05-17] MEDS: METOPROLOL SUCC *XL* 25MG TAB (TopROL *XL*) PO SCH (09:37)
--- NOTE | 2021-05-17 09:48 | IPNPDOC ---
Text Note Date of Service The patient was seen on 05/17/21. NOTE Subjective: Patient is an 89-year-old male with a PMHx of AV block (s/p PM), Systolic CHF, CKD3, Migraines, Hx of TIA, Recent C. diff (on Dificid) who pr esented to the emergency room with 3 days of watery diarrhea. Patient was admitted to the hospital service for further evaluation and treatment. He was noted to have significant elevation of his creatinine compared to his baseline. Nephrology and infectious disease were called on consultation. Patient was seen and examined at the bedside. Currently patient has no new complaints. Denies any nausea, vomiting or abdominal pain. Denies any chest pain, shortness of breath, palpitations. Patient has cleared physical therapy and occupational therapy. Patient's frequency of bowel movements has improved significantly. Patient has a Boogie catheter in place. Patient remained in the hospital for an additional day to help ensure that he has the support at home required to assist with his Boogie catheter management. Objective: Vitals (See below) General: Patient is sitting up at the edge of bed, appears to be compromised in any acute distress, is awake, alert, oriented HEENT: NC, AT CVS: +S1S2 Lungs: Fair air entry b/l, auscultation does not reveal any evidence of wheez ing, crackles, rhonchi Abdomen: Soft, nondistended and nontender Extremities: Lower tremors reveal 1+ pitting edema Assessment: Diarrhea - likely 2/2 C. diff (1st recurrence) WILLIAM on CKD3 - likely 2/2 pre-renal 2/2 Diarrhea, possibly component of hydronephrosis s/p Phimosis s/p Acute blood loss - 2/2 bleeding from foreskin Bilateral hydronephrosis - likely 2/2 outlet obstruction Urinary retention HFpEF Urinary tract infection Questionable ileus AV block s/p pacemaker DLP DM2 DVT prophylaxis Plan: - Patient and cleared physical therapy and occupational therapy yesterday for discharge home with services - Patient was medically cleared for discharge yesterday - However, patient's family required clarification about Boogie catheter management while at home; this was confirmed today - Discussed with PFS; will establish Zimplava infusion on discharge - Please see addendum to discharge summary VS,Eileene, I+O VS, Joebone, I+O Laboratory Tests 05/16/21 13:40 05/17/21 06:14 Vital Signs Date Time Temp Pulse Resp B/P (MAP) Pulse Ox O2 Delivery O2 Flow Rate FiO2 05/17/21 09:37 103 123/70 05/17/21 06:19 98.4 16 99 Room Air I&O- Last 24 Hours up to 6 AM 05/17/21 05:59 Intake Total 1600 ml Output Total 950 ml Balance [address] MD May 17, 2021 09:48
--- NOTE | 2021-05-17 12:29 | REP ---
INDICATION: ARF, Hydronephrosis.. COMPARISON: None. TECHNIQUE/RADIOTRACER AND DOSE: After the intravenous administration of 8.7 mCi of technetium 99 M Mag 3 a renal flow in scan was obtained. FINDINGS: The flow portion of the examination shows markedly delayed visualization of the kidneys. The renal function scintigraphic images show poor nearly absent washout characteristics of each kidney. The pre and post Lasix scintiscans shows no significant change in the renal excretion activity. Evaluation of the functional renogram curves shows the time to peak activity for the left kidney of less than 1 minute and for the right kidney 3 minutes. The T 1/2 value for each kidney is non calculable as it is in excess of 30 minutes. The split differential analysis shows 45.3% of the counts coming from the left kidney and 54.7% of the counts from the right IMPRESSION: Abnormal bilateral renal flow and scan consistent with renal failure. Since the flow portion of the examination shows markedly delayed visualization of each kidney a renovascular component of renal disease cannot be ruled out. <Electronically signed by Gagandeep Davila > 05/17/21 [id number]
--- NOTE | 2021-05-17 13:01 | IPNPDOC ---
Subjective CC/HPI The patient is a 89-year-old male admitted with a reason for visit of Shane, Clostridium Difficile Diarrhea, Diarrhea. Events since last encounter Feels much better, No more bleeding from penile foreskin.Cr improving and he was started on torsemide.He is anxious to go home today. General: Denies: ROS Unobtainable, Chills, Night Sweats, Fatigue, Malaise, Normal Appetite, Other Symptoms Constitutional: Denies: Chills, Fever, Malaise, Night Sweats, Weakness, Fatigue, Weight Loss, Lethargy, Other Eyes: Denies: Pain, Vision change, Conjunctivae inflammation, Eyelid inflammation, Redness, Other ENT: Denies: Head Aches, Ear Pain, Dysphagia, Sinus Congestion, Post Nasal Drip, Sore Throat, Epistaxis, Other Symptoms Skin: Denies: Rash, Lesions, Jaundice, Bruising, Itching, Dry, Breakdown, Nail Changes, Other Pulmonary: Denies: Dyspnea, Cough, Pleuritic Chest Pain, Other Symptoms Cardiovascular: Denies: Chest Pain, Palpitations, Orthopnea, Paroxysmal Noc. Dyspnea, Edema, Lt Headedness, Other Symptoms Gastrointestinal: Denies: Nausea, Vomiting, Abdominal Pain, Diarrhea, Constipation, Melena, Hematochezia, Other Symptoms Genitourinary: Reports: Other Symptoms (Boogie catheter) Hematologic: Denies: Bruising, Bleeding Excessively, Petecchia, Purpura, Enlarged Lymph Nodes, Other Hematologic Musculoskeletal: Denies: Neck Pain, Back Pain, Shoulder Pain, Arm Pain, Hand Pain, Leg Pain, Foot Pain, Joint Pain, Muscle Pain, Spasms, Other Symptoms Neurological: Reports: Weakness Psych: Reports: Mood Normal Objective Physical Examination General Exam: Alert, No Acute Distress EYE EXAM: PERRLA, EOMI ENT EXAM: Atraumatic, Mucous membr. moist/pink Neck Exam: Supple; No: JVD Chest Exam: Clear to auscultation, Normal air movement Heart Exam: Rate Normal, Normal S1, Normal S2 ABDOMEN EXAM: Normal bowel sounds, Soft; No: Tenderness Male Exam: Normal Genital Exam (Indwelling Boogie) Extremity Exam: Edema (1+ in ankles); No: Clubbing, Cyanosis Skin Exam: Nl turgor and temperature; No: Rash Neuro Exam: Normal Speech, Strength at 5/5 X4 ext Psych Exam: Mental status NL, Mood NL Vital Signs/I&O Vital Signs Date Time Temp Pulse Resp B/P (MAP) Pulse Ox O2 Delivery O2 Flow Rate FiO2 05/17/21 09:37 103 123/70 05/17/21 06:19 98.4 16 99 Room Air I&O- Last 24 Hours up to 6 AM 05/17/21 06:00 Intake Total 1500 ml Output Total 650 ml Balance 850 ml Laboratory Data Labs 24H Laboratory Tests 2 05/17/21 06:14: Immature Granulocyte % (Auto) 0.3, Neutrophils (%) (Auto) 87.2H, Lymphocytes (%) (Auto) 6.8L, Monocytes (%) (Auto) 4.4, Eosinophils (%) (Auto) 1.3, Basophils (%) (Auto) 0.0, Neutrophils # (Auto) 5.4, Lymphocytes # (Auto) 0.4L, Monocytes # (Auto) 0.3, Eosinophils # (Auto) 0.1, Basophils # (Auto) 0.0, Nucleated Red Blood Cells % (auto) 0.0, Anion Gap 5L, Glomerular Filtration Rate 18.0L, Calcium Level 7.6L, Phosphorus Level 2.3L, Magnesium Level 1.9, Albumin 1.6L CBC/BMP Laboratory Tests 05/16/21 13:40 05/17/21 06:14 Current Medications Current Medications Medications (Trade) Dose Ordered Sig/Rylan Route PRN Reason Start Time Stop Time Status Last Admin Dose Admin Acetaminophen (Tylenol Tab) 650 mg Q4H PRN PO MILD PAIN or TEMP > 101 05/11/21 15:15 05/12/21 10:20 Aspirin (Ecotrin) 81 mg DAILY PO 05/12/21 09:00 05/17/21 09:36 Ceftriaxone Sodium 1 gm/ Dextrose 50 ml @ 100 mls/hr Q24H IV 05/12/21 18:00 05/13/21 11:12 DC 05/12/21 17:56 Ciprofloxacin (Cipro) 500 mg Q24H PO 05/13/21 12:00 05/15/21 11:59 DC 05/14/21 11:13 Cyanocobalamin (Vitamin B12 Injection) 1,000 mcg Q10D IM 05/14/21 09:00 05/14/21 09:35 Fidaxomicin (Dificid) 200 mg BID PO 05/11/21 21:00 05/17/21 09:37 Finasteride (Proscar) 5 mg QHS PO 05/14/21 21:00 05/16/21 21:09 Heparin Sodium (Porcine) (Heparin) 5,000 units Q8H SC 05/11/21 22:00 05/17/21 06:20 Home Med (Home Med List Complete!) ASDIRECTED XX 05/11/21 14:45 05/11/21 14:45 DC Lactobacillus Acidophilus (Bacid) 1 ea BIDWM PO 05/12/21 18:00 05/17/21 09:36 Magnesium Sulfate/ Dextrose 1 gm/IV Miscellaneous Supplies 100 ml @ 100 mls/hr 1900,2000 IV 05/12/21 19:00 05/12/21 20:59 DC 05/12/21 21:24 Magnesium Sulfate/ Dextrose 1 gm/IV Miscellaneous Supplies 100 ml @ 100 mls/hr Q1H IV 05/14/21 11:00 05/14/21 12:59 DC 05/14/21 12:22 Metoprolol Succinate (TopROL XL) 25 mg DAILY PO 05/11/21 09:00 05/17/21 09:37 Neomycin/ Polymyxin/ Bacitracin (Neosporin) 1 dose DAILY TOP 05/15/21 09:00 05/17/21 09:37 Neomycin/ Polymyxin/ Bacitracin (Neosporin) apply to incision on penis DAILY TOP 05/15/21 09:00 05/14/21 15:39 DC Sodium Chloride 1,000 ml @ 100 mls/hr Q10H IV 05/14/21 10:00 05/14/21 11:30 DC 05/14/21 09:35 Sodium Chloride 1,000 ml @ 125 mls/hr Q8H IV 05/11/21 11:05 05/14/21 08:10 DC 05/13/21 21:16 Tamsulosin HCl (Flomax) 0.4 mg QHS PO 05/14/21 21:00 05/16/21 21:09 Torsemide (Demadex) 10 mg DAILY PO 05/16/21 11:30 05/17/21 09:36 Allergies Coded Allergies: ramipril (Verified Adverse Reaction, Mild, DIZZINESS, 05/30/20) Assessment/Plan Date Seen The patient was seen on 05/17/21 at 12:58. Plan / VTE VTE Prophylaxis Ordered?: Yes VTE Exclusion Mechanical Proph: Low Risk for VTE Plan Orders past 48 Hours Orders Cbc With Differential (05/15/21 20:14) Hemoglobin & Hematocrit (05/16/21 12:00) Discharge/Transfer Order (05/16/21 10:47) Torsemide (Demadex) (05/16/21 11:30) Transfer To Alc Status (05/16/21 11:32) * Nursing Order * (05/16/21 13:07) Social Service Consult (05/16/21 16:41) Basic Metabolic Profile (05/18/21 06:00) Basic Metabolic Profile (05/19/21 06:00) Basic Metabolic Profile (05/20/21 06:00) Basic Metabolic Profile (05/17/21 06:00) Renal Profile (05/17/21 06:00) Patient Discharge Instruction (05/17/21 11:58) Plan Text Acute Renal Failure, Non oliguric. C Diff colitis Anemia sec to bleeding Urinary Retention CHF, leg edema Dificid for C diff. Coco as outpatient as per ID. Brendan Boogie for now. Renal function gradually improving. continue torsemide 10 mg daily on discharge. Follow up with Nephrology after DC DENILSON REED MD May 17, 2021 13:01
== END 2021-05-17 15:36 | disposition home health service (06) | DRG 372 ==
LOC: M ED 10:17 → EDBD 10:17 → M ED INP 15:12 → ENRESERV 17:16 → M MSPAV 18:07
PROVIDERS: ADMIT Family Medicine; ATTEND Internal Medicine
DX: A04.71 Enterocolitis due to Clostridium difficile, recurrent (principal); N17.9 Acute kidney failure, unspecified; N13.30 Unspecified hydronephrosis; I50.32 Chronic diastolic (congestive) heart failure; E87.1 Hypo-osmolality and hyponatremia; N39.0 Urinary tract infection, site not specified; K56.7 Ileus, unspecified; N18.30 Chronic kidney disease, stage 3 unspecified; Z95.0 Presence of cardiac pacemaker; E78.5 Hyperlipidemia, unspecified; E11.9 Type 2 diabetes mellitus without complications; Z20.822 Contact with and (suspected) exposure to COVID-19; Z86.73 Personal history of transient ischemic attack (TIA), and cerebral infarction without residual deficits; G43.909 Migraine, unspecified, not intractable, without status migrainosus; K21.9 Gastro-esophageal reflux disease without esophagitis; Z90.49 Acquired absence of other specified parts of digestive tract; Z87.891 Personal history of nicotine dependence; Z79.82 Long term (current) use of aspirin; Z79.899 Other long term (current) drug therapy; Z88.8 Allergy status to other drugs, medicaments and biological substances; D63.1 Anemia in chronic kidney disease; N47.1 Phimosis; B96.1 Klebsiella pneumoniae [K. pneumoniae] as the cause of diseases classified elsewhere; R33.9 Retention of urine, unspecified; R58 Hemorrhage, not elsewhere classified

== ENCOUNTER 2021-05-18 15:48 | Outpatient (CLI) | payer MEDICARE, OTHER ==
[~2021-05-18] VITALS: Ht 177.8 cm; Wt 59.4 kg
[~2021-05-18 15:48] MED LIST changes: +FINA5TAB2 PO; +FLOM0.4C39 PO; +RISATAB3 PO; +TORS10TA3 PO
[2021-05-18 15:55] VITALS: BP 172/77
[2021-05-18] MEDS ORDERED: BEZLOTOXUMAB 600 MG in NS 100 ML IV ONE (16:15)
[2021-05-18 17:54] VITALS: BP 158/86
== END 2021-05-18 18:00 | disposition home or self-care (01) ==
LOC: M INFU 15:48
PROVIDERS: ATTEND Internal Medicine
DX: A04.71 Enterocolitis due to Clostridium difficile, recurrent (principal); Z88.8 Allergy status to other drugs, medicaments and biological substances
CPT/HCPCS: 96365; J0565

== ENCOUNTER 2021-05-24 14:21 | Emergency (ER) | payer MEDICARE, OTHER ==
[~2021-05-24] VITALS: Ht 172.7 cm; Wt 61.4 kg
[2021-05-24 18:53] LABS: BASO % 0.3 % (0.0-1.0); EOS # 0.1 10^3/uL (0.0-0.5); EOS % 0.7 % (0.0-3.0); HEMATOCRIT 25.1 % (42.0-52.0); HEMOGLOBIN 8.1 g/dl (13.5-17.5); LYMPH # 0.5 10^3/uL (1.5-5.0); LYMPH % 7.1 % (24.0-44.0); MEAN CORPUSCULAR HEMOGLOBIN 31.6 pg (27.0-33.0); MEAN CORPUSCULAR HGB CONC 32.3 g/dl (32.0-36.5); MONO # 0.3 10^3/uL (0.0-0.8); MONO % 4.7 % (2.0-8.0); NEUTROPHILS # 6.1 10^3/uL (1.5-8.5); NEUTROPHILS % 86.6 % (36.0-66.0); PLATELET COUNT, AUTOMATED 226 10^3/uL (150-450); RED BLOOD COUNT 2.56 10^6/uL (4.30-6.10)
[2021-05-24 19:08] LABS: ALBUMIN 2.2 GM/DL (3.2-5.2); BILIRUBIN,TOTAL 0.3 MG/DL (0.2-1.0); CALCIUM LEVEL 7.5 MG/DL (8.8-10.2); CREATININE FOR GFR 3.87 MG/DL (0.70-1.30); GLOMERULAR FILTRATION RATE 15.7 (>35); TOTAL PROTEIN 5.6 GM/DL (6.4-8.2)
[2021-05-24 20:25] VITALS: BP 154/71
== END 2021-05-24 20:47 | disposition home or self-care (01) ==
LOC: M ED 14:21
DX: N48.9 Disorder of penis, unspecified (principal); T81.9XXA Unspecified complication of procedure, initial encounter; Z96.0 Presence of urogenital implants; N18.6 End stage renal disease; Z95.0 Presence of cardiac pacemaker; Z90.49 Acquired absence of other specified parts of digestive tract; Z79.82 Long term (current) use of aspirin; Z79.899 Other long term (current) drug therapy; Z88.8 Allergy status to other drugs, medicaments and biological substances

== ENCOUNTER → 2021-06-01 | Outpatient (REF) | payer MEDICARE, OTHER | LOC: M LAB REF 17:08 | PROVIDERS: ATTEND Internal Medicine Nephrology | DX: E83.42 Hypomagnesemia (principal) ==

== ENCOUNTER → 2021-06-02 | Outpatient (REF) | payer MEDICARE, OTHER | LOC: M LAB REF 11:52 | PROVIDERS: ATTEND Internal Medicine | DX: A49.9 Bacterial infection, unspecified (principal) ==

== ENCOUNTER → 2021-06-04 | Outpatient (CLI) | payer MEDICARE, OTHER | LOC: M LAB 08:10 | PROVIDERS: ATTEND Internal Medicine Nephrology | DX: D64.9 Anemia, unspecified (principal) ==

== ENCOUNTER 2021-06-05 12:01 | Outpatient (CLI) | payer MEDICARE, OTHER ==
[~2021-06-05] VITALS: Ht 172.7 cm; Wt 70.5 kg
[2021-06-05 12:10] VITALS: BP 165/77
[2021-06-05 12:50] VITALS: BP 169/72
[2021-06-05 13:35] VITALS: BP 180/78
[2021-06-05 14:30] VITALS: BP 148/78
[2021-06-05 15:10] VITALS: BP 142/68
== END 2021-06-05 13:10 | disposition home or self-care (01) ==
LOC: M INFU 12:01
PROVIDERS: ATTEND Internal Medicine Nephrology
DX: D64.9 Anemia, unspecified (principal); Z88.8 Allergy status to other drugs, medicaments and biological substances
CPT/HCPCS: 36430; P9016

== ENCOUNTER 2021-06-07 10:00 | Emergency (ER) | payer MEDICARE, OTHER ==
[2021-06-07 11:14] LABS: BASO % 0.2 % (0.0-1.0); EOS % 0.4 % (0.0-3.0); HEMATOCRIT 27.4 % (42.0-52.0); HEMOGLOBIN 8.7 g/dl (13.5-17.5); LYMPH # 0.3 10^3/uL (1.5-5.0); LYMPH % 7.1 % (24.0-44.0); MEAN CORPUSCULAR HGB CONC 31.8 g/dl (32.0-36.5); MEAN CORPUSCULAR VOLUME 97.5 fl (80.0-96.0); MONO # 0.5 10^3/uL (0.0-0.8); MONO % 9.4 % (2.0-8.0); NEUTROPHILS # 3.9 10^3/uL (1.5-8.5); NEUTROPHILS % 82.7 % (36.0-66.0); PLATELET COUNT, AUTOMATED 208 10^3/uL (150-450); RED BLOOD COUNT 2.81 10^6/uL (4.30-6.10); WHITE BLOOD COUNT 4.8 10^3/uL (4.0-10.0)
--- OUTSIDE RECORDS SUMMARY | 2021-06-07 11:26 | CCD | Continuity of Care Document ---
Author Author Jose Ramon Kim Organization Unknown Address [address] [place] [address] Phone [phone] Care Team Providers Care [employer]ified [employer] Specialist Name Role Phone Frantz Woody MD AUTM [phone] [facility]nal[facility] Dmitriy Umaña MD AUTM [phone] [facility] AUTM [phone] [facility] Service - Public Health, Stat e or Local AUTM [phone] Problems Active Problems Provider Date Vertigo Onset: [...] quit in 1983 Exercise Type/Frequency Exercises regularly Allergies and adverse reactions Active Allergies Criticality Reaction | Severity Comments Date Ramipril Unable to assess criticality Hyperkalemia made ptoassi um level drop 05/23/2010 Medications Active Medications SIG Qnty Indications Ordering Provide r Date Torsemide 10mg Tablets 1 tablet by mouth daily 90tabs Frantz Woody MD 05/30/2021 Calcitriol 0.25mcg Capsules 1 by mouth every day 90caps Frantz Woody MD 05/30/2021 Lokelma 5gm Packet 1 packet d aily Frantz Woody MD 05/30/2021 Acidophilus Probiotic Capsules 1 by mouth daily Frantz Woody MD 05/30/2021 Cyanocobalamin 1000mcg/ML Solution Inject 1ML Intramuscularly Every 10 Days 3units Frantz Woody MD 03/24/2019 Aspirin EC 81mg Tablets DR 1 by [...] day directed. 200units Frantz Woody MD 013 Metoprolol Succinate ER 25mg Tablets ER 24HR 1 by mouth every day Unknown 000 Finasteride 5mg Tablets 1 by mouth daily Unknown Tamsulosin HCL 0.4mg Capsules take 1 capsule by mouth one time daily 1/2 hour following the same meal each day Unknown Medications Administered in Office Medication SIG Qnty [...] CPT Code Status Date Vaccine Lot # [id number] Given 05/30/2021 Influenza High Dose 65>,Flua d Quadrivalent [id number] 70383 Given 11/28/2020 Moderna Covid-19 Sars-Cov-2, mRNA, LNP-S, PF, 100 mcg/ 0.5 mL 06477 Given 10/28/2020 Moderna Covid-19 Sars-Cov-2, mRNA, LNP-S, PF, 100 mcg/ 0.5 mL 23463 Given 07/17/2019 Influenza Vaccin e, High Dose > 65 Years Old (Includes Medicare) 84853 Given 07/29/2018 Pneumococcal (Pneumovax 23) [id number] 70834 Given 07/09/2018 Influenza Vaccin e, High Dose > 65 Years Old (Includes Medicare) 13708 Given 07/10/2017 Influenza Vaccin e, High Dose > 65 Years Old (Includes Medicare) [id number] 99522 Given 03/14/2016 Prevnar 13 [id number] 26239 Given 07/06/2015 Influenza Vaccin e, High Dose > 65 Years Old (Includes Medicare) 12652 Given 06/06/2011 Influenza Virus Vaccine, [place] 3 [place] [address] Given 05/23/2010 Influenza Virus Vaccine, Spl [place] 3 [place] [address] Given 05/26/2008 Influenza Virus Vaccine, Spl [place] [address] Given 06/09/2007 Influenza Virus Vaccine, Spl [place] [address] Given 04/23/2007 Zostavax 63327 Given 06/07/2006 Influenza Virus Vaccine, Spl [place] [address] Given 09/24/2003 Tdap Vital Signs Date Vital Result Comment 05/30/2021 10:47am Height 68.00 inches 5'8" Weight 157.12 lb BMI (Body Mass Index) 23.9 kg/m2 BP Systolic 120 mmHg BP Diastolic 70 mmHg Heart Rate 60 /min Body Temperature 98.6 F Body Temperature 37.0 C O2 % BldC Oximetry 99 % 04/19/2021 3:45pm Height 68.00 inches 5'8" BP Systolic 120 mmHg BP Diastolic 78 mmHg Heart Rate 78 /min Body Temperature 98.6 F Body Temperature 37.0 C O2 % BldC Oximetry 97 % Results Test Acquired Date Facility Test Result H/L Range Note Wound Culture 06/02/2021 [facility] nter [address] [place] [address] [phone] Wound Culture FULL REPORT IN L <SEE NOTE> Normal 1 Cbcadp 05/30/2021 [facility] [address] [place] [address] [phone] WBC. 3.80 x10E3/uL Low 4.2-12.0 RBC 2.64 x10E6/uL Low 4.4-6.0 HGB 8.3 g/dL Low 13.8-18.0 HCT 26.9 % Low 39-52 MCV 102.0 fL High 80-98 MCH 31.5 pg 27-33 MCHC 30.9 g/dL Low 32-36 RDW 16.5 % High 11.2-15.2 PLT 283 x10E3/uL 135-420 MPV 8.9 fL 7.0-12.3 % Indra 79.8 % 41.0-80.0 %Lym 15.4 % 10.0-45.2 %Grant 3.6 % 2.0-13.0 %Eos 1.0 % 0.0-8.0 %Baso 0.2 % 0.0-3.0 Neut 3.0 x10E3/uL 2.0-8.1 Lymp 0.6 x10E3/uL 0.6-3.1 Grant 0.1 x10E3/uL 0.0-1.0 Eos 0.0 x10E3/uL 0.0-0.6 Baso 0.0 x10E3/uL 0.0-0.2 Laboratory test finding 05/30/2021 [facility] [address] [place], [place] [id number] [phone] B12 8765 pg/mL High 211-911 2 CMP-Male 05/30/2021 [facility] [address] [place], [place] [id number] [phone] Glucose 102 mg/dL 74-106 3 BUN 78 mg/dL 6-20 4 Creatinine 4.6 mg/dL High 0.5-1.3 Sodium 137 mmol/L 136-145 Potassium 4.5 mmol/L 3.5-5.3 Chloride 108 mmol/L High 98-107 Co2 18 mEq/L Low 20-31 Anion Gap 11 mmol/L 7-16 eGFR-male 12 mL/m/1.73m - eGFR-Aa male 15 mL/m/1.73m - 5 Alk. Phos. 64 U/L 46-116 Alt 16 U/L 4-36 6 Ast 16 U/L 8-33 Total Bilirubin 0.2 mg/dL Low 0.3-1.2 Total Protein 5.9 g/dL Low 6.4-8.3 7 Albumin 3.6 g/dL 3.6-5.1 A/G Ratio 1.6 Ratio 1.0-2.0 Globulin 2.3 g/dL 1.9-3.7 Calcium 8.0 mg/dL Low 8.9-10.5 LPPM 05/30/2021 [facility] [address] [place] [address] [phone] Cholesterol 154 mg/dL 0-200 Triglycerides 58 mg/dL 0-249 8 HDL 68 mg/dL High 40-60 LDL-Calculated 74 mg/dL 0-130 VLDL 12 mg/dL 0-28 Cardiac Risk 2.26 Ratio Low 3.7-5.3 Laboratory test finding 05/30/2021 [facility] [address] [place] [address] [phone] Hgb A1c 5.7 % 3.6-6.9 9 TSH3 9.514 mIU/ml High 0.350-5.500 10 Uric Acid 10.7 mg/dL High 2.6-7.2 11 Vitamin D, 25(Oh). 23.68 ng/ml Low 30-100 12 Est. Average Glucose 117 mg/dL - 13 Venipuncture DONE - 14 CBC With Differential 05/24/[address] [address] [phone] White Blood Count 7.0 10 Normal 4.0-10.0 Red Blood Count 2.56 10 Low 4.30-6.10 Hemoglobin 8.1 g/dL Low 13.5-17.5 Hematocrit 25.1 % Low 42.0-52.0 Mean Corpuscular Volume 98.0 fl High 80.0-96.0 Mean Corpuscular Hemoglobin 31.6 pg Normal 27.0-33.0 Mean Corpuscular HGB Conc 32.3 g/dL Normal 32.0-36.5 Red Cell Distribution Width 15.8 % High 11.5-14.5 Platelet Count, Automated 226 10 Normal 150-450 Neutrophils % 86.6 % High 36.0-66.0 Lymph % 7.1 % Low 24.0-44.0 Grant % 4.7 % Normal 2.0-8.0 Eos % 0.7 % Normal 0.0-3.0 Baso % 0.3 % Normal 0.0-1.0 Immature Granulocyte % 0.6 % Normal 0-3.0 Nucleated Red Blood Cell % 0.0 % Normal 0-0 Neutrophils # 6.1 10 Normal 1.5-8.5 Lymph # 0.5 10 Low 1.5-5.0 Grant # 0.3 10 Normal 0.0-0.8 Eos # 0.1 10 Normal 0.0-0.5 Baso # 0.0 10 Normal 0.0-0.2 Comprehensive Metabolic Profil 05/24/[address] [id number] [phone] Glucose, Fasting 89 mg/dL Normal 70-100 Blood Urea Nitrogen 63 mg/dL High 7-18 Creatinine For GFR 3.87 mg/dL High 0.70-1.30 Glomerular Filtration Rate 15.7 Low >35 1 5 Sodium Level 139 mEq/L Normal 136-145 Potassium Serum 5.0 mEq/L Normal 3.5-5.1 Chloride Level 110 mEq/L High 98-107 Carbon Dioxide Level 19 mEq/L Low 21-32 Anion Gap 10 mEq/L Normal 8-16 Calcium Level 7.5 mg/dL Low 8.8-10.2 Ast/Sgot 14 U/L Normal 7-37 Alt/SGPT 19 U/L Normal 12-78 Alkaline Phosphatase 74 U/L Normal 45-117 Bilirubin,Total 0.3 mg/dL Normal 0.2-1.0 Total Protein 5.6 GM/DL Low 6.4-8.2 Albumin 2.2 GM/DL Low 3.2-5.2 Albumin/Globulin Ratio 0.6 Normal Laboratory test finding 04/19/2021 [facility] [address] [place] [address] [phone] Venipuncture DONE - Manual Diff 04/19/2021 [facility] [address] [place] [address] [phone] Segs 89 % High 40-60 Band 0 % Low 3-5 Lymph 8 % Low 21-45 Monos 2 % Low 6-12 Eosinophils 0 % Low 1-5 Basophils 0 % Low 1-3 Atyp Lymph 1 % - Laboratory test finding 04/19/2021 [facility] [address] [place] [address] [phone] BNP 1015.8 pg/mL High 0-100 Cbcadp 04/19/2021 [facility] [address] [place] [address] [phone] WBC. 8.30 x10E3/uL 4.2-12.0 RBC 3.61 x10E6/uL Low 4.4-6.0 16 HGB 11.0 g/dL Low 13.8-18.0 HCT 34.8 % Low 39-52 MCV 96.4 fL 80-98 MCH 30.6 pg 27-33 MCHC 31.7 g/dL Low 32-36 RDW 14.8 % 11.2-15.2 PLT 247 x10E3/uL 135-420 MPV 8.1 fL 7.0-12.3 % Indra 93.0 % High 41.0-80.0 %Lym 4.6 % Low 10.0-45.2 %Grant 2.1 % 2.0-13.0 %Eos 0.1 % 0.0-8.0 %Baso 0.1 % 0.0-3.0 Neut 7.7 x10E3/uL 2.0-8.1 Lymp 0.4 x10E3/uL Low 0.6-3.1 Grant 0.2 x10E3/uL 0.0-1.0 Eos 0.0 x10E3/uL 0.0-0.6 Baso 0.0 x10E3/uL 0.0-0.2 CMP-Male 04/19/2021 [facility] [address] [place] [address] [phone] Glucose 94 mg/dL 74-106 17 BUN 85 mg/dL 6-20 18 Creatinine 5.6 mg/dL 0.5-1.3 19 Sodium 132 mmol/L Low 136-145 20 Potassium 3.6 mmol/L 3.5-5.3 Chloride 96 mmol/L Low 98-107 Co2 23 mEq/L 20-31 Anion Gap 13 mmol/L 7-16 eGFR-male 10 mL/m/1.73m - eGFR-Aa male 12 mL/m/1.73m - 21 Alk. Phos. 74 U/L 46-116 Alt 19 U/L 4-36 22 Ast 26 U/L 8-33 Total Bilirubin 0.3 mg/dL 0.3-1.2 Total Protein 5.4 g/dL Low 6.4-8.3 23 Albumin 3.0 g/dL Low 3.6-5.1 A/G Ratio 1.3 Ratio 1.0-2.0 Globulin 2.4 g/dL 1.9-3.7 Calcium 7.8 mg/dL Low 8.9-10.5 Influenza A/B RSV Covid Amp 04/04/2021 [facility] [address] [place] [address] [phone] Influenza A Amplification NEGATIVE Normal Negati ve 24 Influenza B Amplification NEGATIVE Normal Negative 25 RSV Amplification NEGATIVE Normal Negative 26 Sars Covid-19 Amplification NEGATIVE Normal Negative 27 CBC With Differential 04/04/[address] [address] [phone] White Blood Count 4.5 10 Normal 4.0-10.0 Red Blood Count 4.09 10 Low 4.30-6.10 Hemoglobin 12.3 g/dL Low 13.5-17.5 Hematocrit 37.4 % Low 42.0-52.0 Mean Corpuscular Volume 91.4 fl Normal 80.0-96.0 Mean Corpuscular Hemoglobin 30.1 pg Normal 27.0-33.0 Mean Corpuscular HGB Conc 32.9 g/dL Normal 32.0-36.5 Red Cell Distribution Width 14.7 % High 11.5-14.5 Platelet Count, Automated 207 10 Normal 150-450 Neutrophils % 82.9 % High 36.0-66.0 Lymph % 9.0 % Low 24.0-44.0 Grant % 7.9 % Normal 2.0-8.0 Eos % 0.0 % Normal 0.0-3.0 Baso % 0.0 % Normal 0.0-1.0 Immature Granulocyte % 0.2 % Normal 0-3.0 Nucleated Red Blood Cell % 0.0 % Normal 0-0 Neutrophils # 3.8 10 Normal 1.5-8.5 Lymph # 0.4 10 Low 1.5-5.0 Grant # 0.4 10 Normal 0.0-0.8 Eos # 0.0 10 Normal 0.0-0.5 Baso # 0.0 10 Normal 0.0-0.2 Cardiac Marker Panel 04/04/2021 [facility] enter [address] [place] [address] [phone] CPK Creatine Phosphokinase 95 U/L Normal 39-30 8 CK-MB Value Mass 3.3 NG/ML Normal <3.6 MB/CK Relative Index 3.47 Normal < Or =4 28 Troponin I 0.03 NG/ML Normal < 0.10 29 Liver Profile 04/04/2021 [facility] nter [address] [place] [address] [phone] Ast/Sgot 10 U/L Normal 7-37 Alt/SGPT 18 U/L Normal 12-78 Alkaline Phosphatase 100 U/L Normal 45-117 Bilirubin,Total 0.3 mg/dL Normal 0.2-1.0 Bilirubin,Direct 0.1 mg/dL Normal 0.0-0.2 Total Protein 6.0 GM/DL Low 6.4-8.2 Albumin 2.8 GM/DL Low 3.2-5.2 Albumin/Globulin Ratio 0.9 Normal Basic Metabolic Profile 04/04/2021 [facility] [address] [place] [address] [phone] Glucose, Fasting 95 mg/dL Normal 70-100 Blood Urea Nitrogen 130 mg/dL High 7-18 Creatinine For GFR 8.50 mg/dL Critical high 0.70-1.30 Glomerular Filtration Rate 6.4 Low >35 3 0 Sodium Level 135 mEq/L Low 136-145 Potassium Serum 4.5 mEq/L Normal 3.5-5.1 Chloride Level 105 mEq/L Normal 98-107 Carbon Dioxide Level 20 mEq/L Low 21-32 Anion Gap 10 mEq/L Normal 8-16 Calcium Level 8.3 mg/dL Low 8.8-10.2 Laboratory test finding 04/04/2021 [facility] [address] [place] [address] [phone] Magnesium Level 1.5 mg/dL Low 1.8-2.4 NT-Pro BNP 8105 pg/mL High <450 Thyroid Stimulating Hormone 3.550 uIU/ML Normal 0.358-3.740 Cbcadp 12/19/2020 [facility] [address] [place], [place] [address] [phone] WBC. 5.30 x10E3/uL 4.2-12.0 RBC 3.94 x10E6/uL Low 4.4-6.0 HGB 12.1 g/dL Low 13.8-18.0 HCT 38.7 % Low 39-52 MCV 98.0 fL 80-98 MCH 30.7 pg 27-33 MCHC 31.3 g/dL Low 32-36 RDW 13.7 % 11.2-15.2 PLT 162 x10E3/uL 135-420 MPV 9.0 fL 7.0-12.3 % Indra 73.6 % 41.0-80.0 %Lym 19.7 % 10.0-45.2 %Grant 4.2 % 2.0-13.0 %Eos 2.1 % 0.0-8.0 %Baso 0.4 % 0.0-3.0 Neut 3.9 x10E3/uL 2.0-8.1 Lymp 1.0 x10E3/uL 0.6-3.1 Grant 0.2 x10E3/uL 0.0-1.0 Eos 0.1 x10E3/uL 0.0-0.6 Baso 0.0 x10E3/uL 0.0-0.2 Iron Panel Office 12/19/2020 [facility] [address] [place] [address] [phone] Iron 77 g/dL 50-175 31 Tibc 379 g/dL 250-450 32 Ferritin 19 ng/ml Low 22.0-322.0 33 % Saturation 20 % 13-48 34 Laboratory test finding 12/19/2020 [facility] [address] [place] [address] [phone] B12 5251 pg/mL High 211-911 35 CMP-Male 12/19/2020 [facility] [address] [place] [address] [phone] Glucose 110 mg/dL High 74-106 36 BUN 86 mg/dL 6-20 37 Creatinine 3.4 mg/dL High 0.5-1.3 Sodium 138 mmol/L 136-145 Potassium 4.8 mmol/L 3.5-5.3 Chloride 103 mmol/L 98-107 Co2 26 mEq/L 20-31 Anion Gap 9 mmol/L 7-16 eGFR-male 17 mL/m/1.73m - eGFR-Aa male 21 mL/m/1.73m - 38 Alk. Phos. 81 U/L 46-116 Alt 18 U/L 4-36 39 Ast 27 U/L 8-33 Total Bilirubin 0.4 mg/dL 0.3-1.2 Total Protein 6.6 g/dL 6.4-8.3 40 Albumin 4.5 g/dL 3.6-5.1 A/G Ratio 2.1 Ratio High 1.0-2.0 Globulin 2.1 g/dL 1.9-3.7 Calcium 9.0 mg/dL 8.9-10.5 LPPM 12/19/2020 [facility] [address] [place] [address] [phone] Cholesterol 146 mg/dL 0-200 Triglycerides 84 mg/dL 0-249 41 HDL 59 mg/dL 40-60 LDL-Calculated 70 mg/dL 0-130 VLDL 17 mg/dL 0-28 Cardiac Risk 2.47 Ratio Low 3.7-5.3 Laboratory test finding 12/19/2020 [facility] [address] [place] [address] [phone] Venipuncture DONE - 42 1 FULL REPORT IN LAB NOTES (eC W and [facility]). ORGANISM 1: KLEBSIELLA OXYTOCA QUANTITY OF GROWTH MODERATE ORGANISM 2: STREP AGALACTIAE GROUP B QUANTITY OF GROWTH MODERATE ORGANISM 1: KLEBSIELLA OXYTOCA ORGANISM 2: STREP AGALACTIAE GROUP B KLEBSIELLA OXYTOCA: REACTION TRIMETHOPRIM/SULFAMETHOXAZOLE IV 160mg TMP & 800mg SMXq6h <=20 S TRIMETHOPRIM/SULFAMETHOXAZOLE PO Bactrim DS Bid <=20 S AMPICILLIN IV 500mg q6h >=32 R AMPICILLIN PO 500mg q6h fasting >=32 R GENTAMICIN IV 80mg q8h <=1 S CEFAZOLIN IV 1gm q8h >=64 R LEVOFLOXACIN IV 500mg qd <=0.12 S LEVOFLOXACIN PO 250mg qd <=0.12 S LEVOFLOXACIN PO 500mg qd <=0.12 S TOBRAMYCIN IV 80mg q8h <=1 S CEFTRIAXONE IV 1gm q24h 8 S CEFTAZIDIME IV 1gm q8h <=1 S AMPICILLIN/SULBACTAM IV 1.5g q6h >=32 R PIPERACILLIN/TAZOBACTAM IV 2.25 gm q6h >=128 R AZTREONAM IV 1gm q8h 16 I ERTAPENEM IV 1gm qd <=0.5 S MEROPENEM IV 1 gm q8h <=0.25 S MEROPENEM IV 500 mg q8h <=0.25 S TIGECYCLINE IV 50mg q12h <=0.5 S CEFEPIME IV 1 gm q12h <=1 S CEFEPIME IV 2 gm q12h <=1 S EXTD BRD SPCTRM BETA LACTAMASE IV NEGATIVE FOR ESBL 2 Results Confirmed on Dilutio n. 3 [place] Diabetes [employer] n (ADA) Recommended Range is 65-99 mg/dL 4 Results Confirmed by Repeat Analysis. Tried to call no answer 0861 lori Consistent with previous results [facility] and transmitted 1217 lori 05/30/2021 5 Normal Kidney Function or Mi ld Disease GFR >59 mL/min/1.73m2 Chronic Kidney Disease GFR 15-59 mL/min/1.73m2 Renal Failure GFR <15 mL/min/1.73m2 6 Effective 02/23/2017: [employer] has indicated interference with the drugs sulfasalazine and sulfapyridine. They suggest collection should occur prior to drug administration due to falsely depressed results. 7 Results may reflect a potent ial interference in Total Protein results in patients receiving dextran as blood volume expanders. 8 National Cholesterol Educati on Program (NCEP) Guidelines: Recommended Range <150 mg/dL 9 Hgb A1c Interpretation: <5.8% - Non-diabetic >6.5% - Diabetic <7.0% - ADA diabetic treatment goal 10 not fasting 11 not fasting 12 Recommended Levels for Circu lating 25-hydroxy Vitamin D: Vitamin D Status 25-OH Vitamin D Test Result Deficient <10ng/mL Insufficient 10-29ng/mL Sufficient 30-100ng/mL Potential Intoxication >100ng/mL A pediatric reference range has not been established using this method. 13 The Estimated Average Glucos e is a calculation of the average glucose over the last 120 days including non-fasting as well as fasting levels. 14 not fasting 15 Units are mL/min/1.73 m2 Chronic Kidney Disease Staging per NKF: Stage I & II GFR >=60 Normal to Mildly Decreased Stage III GFR 30-59 Moderately Decreased Stage IV GFR 15-29 Severely Decreased Stage V GFR <15 Very Little GFR Left ESRD GFR <15 on DIRECTOR STAGE 16 1+ Ovalocytes 2+ Anisocytosis 1+ Hypochromasia 17 [place] Diabetes Associ[employer] n (ADA) Recommended Range is 65-99 mg/dL 18 Results Confirmed by Repeat Analysis. Results faxed at 1053 04/20/21 kk Called to Lauren at 1053 04/20/21 kk 19 Results Confirmed by Repeat Analysis. Results faxed at 1053 04/20/ kk Called to Lauren at 1053 04/20/21 kk 20 Results Confirmed by Repeat Analysis. 21 Normal Kidney Function or Mi ld Disease GFR >59 mL/min/1.73m2 Chronic Kidney Disease GFR 15-59 mL/min/1.73m2 Renal Failure GFR <15 mL/min/1.73m2 22 Effective 02/23/2017: [employer] has indicated interference with the drugs sulfasalazine and sulfapyridine. They suggest collection should occur prior to drug administration due to falsely depressed results. 23 Results may reflect a potent ial interference in Total Protein results in patients receiving dextran as blood volume expanders. 24 Negative results do not prec lude influenza or RSV virus infection and should not be used as the sole basis for treatment or other patient management decisions. 25 Negative results do not prec lude influenza or RSV virus infection and should not be used as the sole basis for treatment or other patient management decisions. 26 Negative results do not prec lude influenza or RSV virus infection and should not be used as the sole basis for treatment or other patient management decisions. 27 A false negative result may occur if a specimen is improperly collected, transported or handled. False negative results may also occur if inadequate numbers of organisms are present in the specimen. As with any molecular test, mutations within the target regions of Xpert Xpress SARS-CoV-2 could affect primer and/or probe binding resulting in failure to detect the presence of virus. This test cannot rule out diseases caused by other bacterial or viral pathogens. DISCLAIMER: Testing was performed using the [employer] SARS-CoV-2 test. This test was developed and its performance characteristics determined by [employer]. This test has not been FDA cleared or approved. This test has been authorized by FDA under an Emergency Use Authorization (EUA). This test is only authorized for the duration of time the declaration that circumstances exist justifying the authorization of the emergency use of in vitro diagnostic tests for detection of SARS-CoV-2 virus and/or diagnosis of COVID-19 infection under section 564(b)(1) of the Act, 21 U.S.C. 360bbb-3(b)(1), unless the authorization is terminated or revoked sooner. 28 DIAGNOSIS CRITERIA MMB ng/ml Relative Index (RI) NON-AMI < or = 5 N/A WALTON ZONE > 5 < or = 4 AMI > 5 > 4 29 Troponin I Reference Interva l for L4 Mobile LOCI: 99th Percentile= 0.00-0.045 ng/ml Risk Stratification: <= 0.10 ng/ml Decreased Risk for Adverse Clinical Events. 0.10-1.50 ng/ml Increased Risk for Adv erse Clinical Events. Evaluation of additional criterion and/or repeat testing in 2-6 hours is suggested to rule out myocardial damage. >= 1.50 ng/ml Indicative of Myocardial Injury. 30 Units are mL/min/1.73 m2 Chronic Kidney Disease Staging per NKF: Stage I & II GFR >=60 Normal to Mildly Decreased Stage III GFR 30-59 Moderately Decreased Stage IV GFR 15-29 Severely Decreased Stage V GFR <15 Very Little GFR Left ESRD GFR <15 on DIRECTOR STAGE 31 not fasting 32 not fasting 33 not fasting 34 not fasting 35 Results Confirmed on Dilutio n. 36 [place] Diabetes Associ[employer] n (ADA) Recommended Range is 65-99 mg/dL 37 Results Confirmed by Repeat Analysis. Results faxed at 437 12/19/20 kk Called to Lauren at 437 12/19/20 kk 38 Normal Kidney Function or Mi ld Disease GFR >59 mL/min/1.73m2 Chronic Kidney Disease GFR 15-59 mL/min/1.73m2 Renal Failure GFR <15 mL/min/1.73m2 39 Effective 02/23/2017: [employer] has indicated interference with the drugs sulfasalazine and sulfapyridine. They suggest collection should occur prior to drug administration due to falsely depressed results. 40 Results may reflect a potent ial interference in Total Protein results in patients receiving dextran as blood volume expanders. 41 National Cholesterol Educati on Program (NCEP) Guidelines: Recommended Range <150 mg/dL 42 not fasting Procedures Date Code Description Status 04/19/2021 55683 TCM-Mod Completed 12/19/2020 41669 Office/Outpatient Established Mo d MDM 30-39 Min Completed Medical Devices Description No Information Available Encounters Type Date Location Provider Dx Diagnosis Office Visit 04/19/2021 4:00p CMP Primary Care AT Stephen Fraire MD N18.9 Chronic kidney disease, unspecified A04.72 Enterocolitis d/t Clostridiu m difficile, not spcf recur I50.32 Chronic diastolic (congestiv e) heart failure S41.112A Laceration w/o foreign body of left upper arm, init encntr Office Visit 12/19/2020 1:20p CMP Primary Care AT Stephen Fraire MD N18.9 Chronic kidney disease, unspecified I12.9 Hypertensive chronic kidney disease w stg 1-4/unsp chr kdny E78.5 Hyperlipidemia, unspecified D51.9 Vitamin B12 deficiency anemi a, unspecified D64.9 Anemia, unspecified Z00.00 Encntr for general adult med ical exam w/o abnormal findings Z13.31 Encounter for screening for depression Assessments Date Code Description Provider 05/30/2021 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, 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 Frantz Woody MD 05/30/2021 N39.0 Urinary tract infection, site no t specified Frantz Woody MD 05/30/2021 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 retention of urine Frantz Fraire MD 05/30/2021 N18.9 Chronic kidney disease, unspecif ied Frantz Woody MD 05/30/2021 E78.5 Hyperlipidemia, unspecified Frantz Woody MD 05/30/2021 D51.9 Vitamin B12 deficiency anemia, u nspecified Frantz Woody MD 05/30/2021 D64.9 Anemia, unspecified Frantz Woody MD 05/30/2021 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 Frantz Wooyd MD 05/30/2021 E55.9 Vitamin D deficiency, unspecifie d Frantz Woody MD 05/30/2021 Z23 Encounter for immunization Frantz Wooyd MD 05/30/2021 D51.9 Vitamin B12 deficiency anemia, u nspecified [facility] 05/30/2021 D64.9 Anemia, unspecified [facility] 05/30/2021 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 [facility] 05/30/2021 E55.9 Vitamin D deficiency, unspecifie d [facility] 05/30/2021 E78.5 Hyperlipidemia, unspecified [facility] 05/30/2021 N18.9 Chronic kidney disease, unspecif ied [facility] 05/30/2021 D51.9 Vitamin B12 deficiency anemia, u nspecified [facility] 05/30/2021 D64.9 Anemia, unspecified [facility] 05/30/2021 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 [facility] 05/30/2021 E55.9 Vitamin D deficiency, unspecifie d [facility] 05/30/2021 E78.5 Hyperlipidemia, unspecified [facility] 05/30/2021 N18.9 Chronic kidney disease, unspecif ied [facility] 04/19/2021 N18.9 Chronic kidney disease, unspecif ied Frantz Woody MD 04/19/2021 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, 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 Frantz Woody MD 04/19/2021 I50.32 Chronic diastolic (congestive) h eart failure Frantz Woody MD 04/19/2021 S41.112A Laceration without f oreign body of left upper arm, initial encounter Frantz Woody MD 04/19/2021 I50.32 Chronic diastolic (congestive) h eart failure [facility] 04/19/2021 N18.9 Chronic kidney disease, unspecif ied [facility] 12/19/2020 N18.9 Chronic kidney disease, unspecif ied Frantz Woody MD 12/19/2020 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, or unspecified chronic kidney disease Frantz Woody MD 12/19/2020 E78.5 Hyperlipidemia, unspecified Frantz Woody MD 12/19/2020 D51.9 Vitamin B12 deficiency anemia, u nspecified Frantz Woody MD 12/19/2020 D64.9 Anemia, unspecified Frantz Woody MD 12/19/2020 Z00.00 Encounter for genera l adult medical examination without abnormal findings Frantz Woody MD 12/19/2020 Z13.31 Encounter for screening for depr ession Frantz Woody MD 12/19/2020 D51.9 Vitamin B12 deficiency anemia, u nspecified [facility] 12/19/2020 D64.9 Anemia, unspecified [facility] 12/19/2020 E78.5 Hyperlipidemia, unspecified [facility] 12/19/2020 N18.9 Chronic kidney disease, unspecif ied [facility] Plan of Treatment Future Appointment(s):* 12/05/2021 12:20 pm - Frantz Woody MD at [facility] Primary Care AT [place] 05/30/2021 - Frantz Woody MD* 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, 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
--- OUTSIDE RECORDS SUMMARY | 2021-06-07 11:26 | CCD | Continuity of Care Document ---
Author Author Jose Ramon Kim Organization Unknown Address [address] [place] [address] Phone [phone] Care Team Providers Care Distribution Lead Name Role Phone Frantz Woody MD [facility] [phone] [facility] Dmitriy Umaña MD [facility] [phone] [facility] [phone] [facility] Service - Public Health, Stat e or Local AUTM [phone] Problems Active Problems Provider Date Vertigo Onset: [...] 07/29/2018 Administer Influenza Virus Vaccine Injection Frantz Wooyd MD 07/10/2017 Vitamin B-12 (To 1000 mcg) [...] CPT Code Status Date Vaccine Lot # [id number] Given 05/30/2021 Influenza High Dose 65>,Flua d Quadrivalent [id number] 41866 Given 11/28/2020 Moderna Covid-19 Sars-Cov-2, mRNA, LNP-S, PF, 100 mcg/ 0.5 mL 36023 Given 10/28/2020 Moderna Covid-19 Sars-Cov-2, mRNA, LNP-S, PF, 100 mcg/ 0.5 mL 53278 Given 07/17/2019 Influenza Vaccin e, High Dose > 65 Years Old (Includes Medicare) 96563 Given 07/29/2018 Pneumococcal (Pneumovax 23) [id number] 06019 Given 07/09/2018 Influenza Vaccin e, High Dose > 65 Years Old (Includes Medicare) 71930 Given 07/10/2017 Influenza Vaccin e, High Dose > 65 Years Old (Includes Medicare) [id number] 42415 Given 03/14/2016 Prevnar 13 [id number] 07575 Given 07/06/2015 Influenza Vaccin e, High Dose > 65 Years Old (Includes Medicare) 20945 Given 06/06/2011 Influenza Virus Vaccine, Spl [place] 3 [place] [address] Given 05/23/2010 Influenza Virus Vaccine, Spl [place] [address] Given 05/26/2008 Influenza Virus Vaccine, Spl [place] [address] Given 06/09/2007 Influenza Virus Vaccine, Spl [place] [address] Given 04/23/2007 Zostavax 20009 Given 06/07/2006 Influenza Virus Vaccine, Spl it [address] [place] [address] Given 09/24/2003 Tdap Vital Signs Date Vital [...] Result H/L Range Note Wound Culture 06/02/2021 [facility] [address]ter [address] [place] [address] [phone] Wound Culture FULL REPORT IN L <SEE NOTE> Normal 1 Cbcadp 05/30/2021 [facility] [address] [place] [address] [phone] WBC. 3.80 x10E3/uL Low 4.2-12.0 RBC 2.64 x10E6/uL Low 4.4-6.0 HGB 8.3 g/dL Low 13.8-18.0 HCT 26.9 % Low 39-52 MCV 102.0 fL High 80-98 MCH 31.5 pg 27-33 MCHC 30.9 g/dL Low 32-36 RDW 16.5 % High 11.2-15.2 PLT 283 x10E3/uL 135-420 MPV 8.9 fL 7.0-12.3 % Indra 79.8 % 41.0-80.0 %Lym 15.4 % 10.0-45.2 %[place] 3.6 % 2.0-13.0 %Eos 1.0 % 0.0-8.0 %Baso 0.2 % 0.0-3.0 Neut 3.0 x10E3/uL 2.0-8.1 Lymp 0.6 x10E3/uL 0.6-3.1 [place] 0.1 x10E3/uL 0.0-1.0 Eos 0.0 x10E3/uL 0.0-0.6 Baso 0.0 x10E3/uL 0.0-0.2 Laboratory test finding 05/30/2021 [facility] [address] [place], [place] [id number] [phone] B12 8765 pg/mL High 211-911 2 CMP-Male 05/30/2021 [facility] [address] [place], [place] [id number] [phone] Glucose 102 mg/dL 74-106 3 BUN 78 [...] Calcium 8.0 mg/dL Low 8.9-10.5 LPPM 05/30/2021 [facility] [address] [place] [address] [phone] Cholesterol 154 mg/dL 0-200 Triglycerides 58 mg/dL 0-249 8 HDL 68 mg/dL High 40-60 LDL-Calculated 74 mg/dL 0-130 VLDL 12 mg/dL 0-28 Cardiac Risk 2.26 Ratio Low 3.7-5.3 Laboratory test finding 05/30/2021 [facility] [address] [place] [address] [phone] Hgb A1c 5.7 % 3.6-6.9 9 TSH3 9.514 mIU/ml High 0.350-5.500 10 Uric Acid 10.7 mg/dL High 2.6-7.2 11 Vitamin D, 25(Oh). 23.68 ng/ml Low 30-100 12 Est. Average Glucose 117 mg/dL - 13 Venipuncture DONE - 14 CBC With Differential 05/24/[address] [address] [phone] White Blood Count 7.0 10 Normal 4.0-10.0 [...] 36.0-66.0 Lymph % 7.1 % Low 24.0-44.0 [place] % 4.7 % Normal 2.0-8.0 Eos % 0.7 % Normal 0.0-3.0 Baso % 0.3 % Normal 0.0-1.0 Immature Granulocyte % 0.6 % Normal 0-3.0 Nucleated Red Blood Cell % 0.0 % Normal 0-0 Neutrophils # 6.1 10 Normal 1.5-8.5 Lymph # 0.5 10 Low 1.5-5.0 [place] # 0.3 10 Normal 0.0-0.8 Eos # 0.1 10 Normal 0.0-0.5 Baso # 0.0 10 Normal 0.0-0.2 Comprehensive Metabolic Profil 05/24/[address] [address]255 [phone] Glucose, Fasting 89 mg/dL Normal 70-100 Blood [...] Ratio 0.6 Normal Laboratory test finding 04/19/2021 [facility] [address] [place] [address] [phone] Venipuncture DONE - Manual Diff 04/19/2021 [facility] [address] [place] [address] [phone] Segs 89 % High 40-60 Band 0 % Low 3-5 Lymph 8 % Low 21-45 Monos 2 % Low 6-12 Eosinophils 0 % Low 1-5 Basophils 0 % Low 1-3 Atyp Lymph 1 % - Laboratory test finding 04/19/2021 [facility] [address] [place] [address] [phone] BNP 1015.8 pg/mL High 0-100 Cbcadp 04/19/2021 [facility] [address] [place] [address] [phone] WBC. 8.30 x10E3/uL 4.2-12.0 RBC 3.61 x10E6/uL Low 4.4-6.0 16 HGB 11.0 g/dL Low 13.8-18.0 HCT 34.8 % Low 39-52 MCV 96.4 fL 80-98 MCH 30.6 pg 27-33 MCHC 31.7 g/dL Low 32-36 RDW 14.8 % 11.2-15.2 PLT 247 x10E3/uL 135-420 MPV 8.1 fL 7.0-12.3 % Indra 93.0 % High 41.0-80.0 %Lym 4.6 % Low 10.0-45.2 %B[place] 2.1 % 2.0-13.0 %Eos 0.1 % 0.0-8.0 %Baso 0.1 % 0.0-3.0 Neut 7.7 x10E3/uL 2.0-8.1 Lymp 0.4 x10E3/uL Low 0.6-3.1 [place] 0.2 x10E3/uL 0.0-1.0 Eos 0.0 x10E3/uL 0.0-0.6 Baso 0.0 x10E3/uL 0.0-0.2 CMP-Male 04/19/2021 [facility] [address] [place] [address] [phone] Glucose 94 mg/dL 74-106 17 BUN 85 [...] 8.9-10.5 Influenza A/B RSV Covid Amp 04/04/2021 [facility] [address] [place] [address] [phone] Influenza A Amplification NEGATIVE Normal Negati ve 24 Influenza B Amplification NEGATIVE Normal Negative 25 RSV Amplification NEGATIVE Normal Negative 26 Sars Covid-19 Amplification NEGATIVE Normal Negative 27 CBC With Differential 04/04/[address] [address] [phone] White Blood Count 4.5 10 Normal 4.0-10.0 [...] 36.0-66.0 Lymph % 9.0 % Low 24.0-44.0 [place] % 7.9 % Normal 2.0-8.0 Eos % 0.0 % Normal 0.0-3.0 Baso % 0.0 % Normal 0.0-1.0 Immature Granulocyte % 0.2 % Normal 0-3.0 Nucleated Red Blood Cell % 0.0 % Normal 0-0 Neutrophils # 3.8 10 Normal 1.5-8.5 Lymph # 0.4 10 Low 1.5-5.0 [place] # 0.4 10 Normal 0.0-0.8 Eos # 0.0 10 Normal 0.0-0.5 Baso # 0.0 10 Normal 0.0-0.2 Cardiac Marker Panel 04/04/2021 [facility] enter [address] [place] [address] [phone] CPK Creatine Phosphokinase 95 U/L Normal 39-30 8 CK-MB Value Mass 3.3 NG/ML Normal <3.6 MB/CK Relative Index 3.47 Normal < Or =4 28 Troponin I 0.03 NG/ML Normal < 0.10 29 Liver Profile 04/04/2021 [facility] nter [address] [place] [address] [phone] Ast/Sgot 10 U/L Normal 7-37 Alt/SGPT 18 U/L Normal 12-78 Alkaline Phosphatase 100 U/L Normal 45-117 Bilirubin,Total 0.3 mg/dL Normal 0.2-1.0 Bilirubin,Direct 0.1 mg/dL Normal 0.0-0.2 Total Protein 6.0 GM/DL Low 6.4-8.2 Albumin 2.8 GM/DL Low 3.2-5.2 Albumin/Globulin Ratio 0.9 Normal Basic Metabolic Profile 04/04/2021 [facility] [address] [place] [address] [phone] Glucose, Fasting 95 mg/dL Normal 70-100 Blood [...] mg/dL Low 8.8-10.2 Laboratory test finding 04/04/2021 [facility] [address] [place] [address] [phone] Magnesium Level 1.5 mg/dL Low 1.8-2.4 NT-Pro BNP 8105 pg/mL High <450 Thyroid Stimulating Hormone 3.550 uIU/ML Normal 0.358-3.740 Cbcadp 12/19/2020 [facility] [address] [place], [place] [address] [phone] WBC. 5.30 x10E3/uL 4.2-12.0 RBC 3.94 x10E6/uL Low 4.4-6.0 HGB 12.1 g/dL Low 13.8-18.0 HCT 38.7 % Low 39-52 MCV 98.0 fL 80-98 MCH 30.7 pg 27-33 MCHC 31.3 g/dL Low 32-36 RDW 13.7 % 11.2-15.2 PLT 162 x10E3/uL 135-420 MPV 9.0 fL 7.0-12.3 % Indra 73.6 % 41.0-80.0 %Lym 19.7 % 10.0-45.2 %B[place] 4.2 % 2.0-13.0 %Eos 2.1 % 0.0-8.0 %Baso 0.4 % 0.0-3.0 Neut 3.9 x10E3/uL 2.0-8.1 Lymp 1.0 x10E3/uL 0.6-3.1 [place] 0.2 x10E3/uL 0.0-1.0 Eos 0.1 x10E3/uL 0.0-0.6 Baso 0.0 x10E3/uL 0.0-0.2 Iron Panel Office 12/19/2020 [facility] [address] [place] [address] [phone] Iron 77 g/dL 50-175 31 Tibc 379 g/dL 250-450 32 Ferritin 19 ng/ml Low 22.0-322.0 33 % Saturation 20 % 13-48 34 Laboratory test finding 12/19/2020 [facility] [address] [place] [address] [phone] B12 5251 pg/mL High 211-911 35 CMP-Male 12/19/2020 [facility] [address] [place] [address] [phone] Glucose 110 mg/dL High 74-106 36 BUN [...] 1.9-3.7 Calcium 9.0 mg/dL 8.9-10.5 LPPM 12/19/2020 [facility] [address] [place] [address] [phone] Cholesterol 146 mg/dL 0-200 Triglycerides 84 mg/dL 0-249 41 HDL 59 mg/dL 40-60 LDL-Calculated 70 mg/dL 0-130 VLDL 17 mg/dL 0-28 Cardiac Risk 2.47 Ratio Low 3.7-5.3 Laboratory test finding 12/19/2020 [facility] [address] [place] [address] [phone] Venipuncture DONE - 42 1 FULL REPORT [...] 2 Results Confirmed on Dilutio n. 3 [place] [employer] n (ADA) Recommended Range is 65-99 mg/dL 4 Results Confirmed by Repeat Analysis. Tried to call no answer 0669 lori Consistent with previous results [facility] and transmitted 1955 lori 05/30/2021 5 Normal Kidney Function or Mi ld Disease GFR >59 mL/min/1.73m2 Chronic Kidney Disease GFR 15-59 mL/min/1.73m2 Renal Failure GFR <15 mL/min/1.73m2 6 Effective 02/23/2017: [employer] has indicated interference with the drugs sulfasalazine [...] Little GFR Left ESRD GFR <15 on CHICKEN CATCHER 16 1+ Ovalocytes 2+ Anisocytosis 1+ Hypochromasia 17 [place] Diabetes [employer] n (ADA) Recommended Range is [...] Failure GFR <15 mL/min/1.73m2 22 Effective 02/23/2017: [employer] has indicated interference with the drugs sulfasalazine [...] pathogens. DISCLAIMER: Testing was performed using the [employer] SARS-CoV-2 test. This test was developed and its performance characteristics determined by [employer]. This test has not been FDA cleared [...] 29 Troponin I Reference Interva l for [facility] LOCI: 99th Percentile= 0.00-0.045 ng/ml Risk Stratification: [...] Little GFR Left ESRD GFR <15 on CHICKEN CATCHER 31 not fasting 32 not fasting 33 not fasting 34 not fasting 35 Results Confirmed on Dilutio n. 36 [place] Diabetes [employer] n (ADA) Recommended Range is 65-99 mg/dL 37 Results Confirmed by Repeat Analysis. Results faxed at 437 12/19/20 kk Called to Lauren at 437 12/19/20 kk 38 Normal Kidney Function or Mi ld Disease GFR >59 mL/min/1.73m2 Chronic Kidney Disease GFR 15-59 mL/min/1.73m2 Renal Failure GFR <15 mL/min/1.73m2 39 Effective 02/23/2017: [employer] has indicated interference with the drugs sulfasalazine [...] fasting Procedures Date Code Description Status 04/19/2021 64270 TCM-Mod Completed 12/19/2020 08052 Office/Outpatient Established Mo d MDM 30-39 Min [...] abetic chronic kidney diseas Frantz Woody MD 05/30/2021 E55.9 Vitamin D deficiency, unspecifie d Frantz Woody MD 05/30/2021 Z23 Encounter for immunization Frantz Woody MD 05/30/2021 D51.9 Vitamin B12 [...] 12:20 pm - Frantz Woody MD at [facility] Primary Care AT [place] 05/30/2021 - Frantz Woody MD* A04.72 Enterocolitis [...]
--- OUTSIDE RECORDS SUMMARY | 2021-06-07 11:27 | CCD | Continuity of Care Document ---
Author Author Jose Ramon WOODY MD Organization Unknown Address [address] [place] [address], [address] [place] [address] Phone [phone] Care Team Providers Care Last Puller Name Role Phone Frantz Woody MD AUTM [phone] Arnaldo Flores MD AUTM [facility] Dmitriy Umaña MD AUTM [phone] [facility] AUTM [phone] [facility] Service - Public Health, Stat e or Local AUTM [phone] Problems Active Problems Provider Date Vertigo Onset: [...] 05/30/2021 Lokelma 5gm Packet 1 packet d collin Woody MD 05/30/2021 Acidophilus Probiotic Capsules 1 [...] CPT Code Status Date Vaccine Lot # [id number] Given 05/30/2021 Influenza High Dose 67>,Flua d Quadrivalent [id number] 43868 Given 11/28/2020 Moderna Covid-19 Sars-Cov-2, mRNA, LNP-S, PF, 100 mcg/ 0.5 mL 23673 Given 10/28/2020 Moderna Covid-19 Sars-Cov-2, mRNA, LNP-S, PF, 100 mcg/ 0.5 mL 16244 Given 07/17/2019 Influenza Vaccin e, High Dose > 65 Years Old (Includes Medicare) 19479 Given 07/29/2018 Pneumococcal (Pneumovax 23) [id number] 05352 Given 07/09/2018 Influenza Vaccin e, High Dose > 65 Years Old (Includes Medicare) 66694 Given 07/10/2017 Influenza Vaccin e, High Dose > 65 Years Old (Includes Medicare) [id number] 88853 Given 03/14/2016 Prevnar 13 [id number] 70450 Given 07/06/2015 Influenza Vaccin e, High Dose > 65 Years Old (Includes Medicare) 16075 Given 06/06/2011 Influenza Virus Vaccine, Spl it 3 [place] [address] Given 05/23/2010 Influenza Virus Vaccine, Spl it [place] [address] Given 05/26/2008 Influenza Virus Vaccine, Spl [place] [address] Given 06/09/2007 Influenza Virus Vaccine, Spl it [address] [place] [address] Given 04/23/2007 Zostavax 30127 Given 06/07/2006 Influenza Virus Vaccine, Spl it [address] [place] [address] Given 09/24/2003 Tdap Vital Signs Date Vital [...] Date Facility Test Result H/L Range Note Laboratory test finding 05/30/2021 [facility] [address] [place] [address] [phone] B12 8765 pg/mL High 211-911 1 CMP-Male 05/30/2021 [facility] [address] [place] [address] [phone] Glucose 102 mg/dL 74-106 2 BUN 78 mg/dL 6-20 3 Creatinine 4.6 mg/dL High 0.5-1.3 Sodium 137 mmol/L 136-145 Potassium 4.5 mmol/L 3.5-5.3 Chloride 108 mmol/L High 98-107 Co2 18 mEq/L Low 20-31 Anion Gap 11 mmol/L 7-16 eGFR-male 12 mL/m/1.73m - eGFR-Aa male 15 mL/m/1.73m - 4 Alk. Phos. 64 U/L 46-116 Alt 16 U/L 4-36 5 Ast 16 U/L 8-33 Total Bilirubin 0.2 mg/dL Low 0.3-1.2 Total Protein 5.9 g/dL Low 6.4-8.3 6 Albumin 3.6 g/dL 3.6-5.1 A/G Ratio 1.6 Ratio 1.0-2.0 Globulin 2.3 g/dL 1.9-3.7 Calcium 8.0 mg/dL Low 8.9-10.5 LPPM 05/30/2021 [facility] [address] [place] [address] [phone] Cholesterol 154 mg/dL 0-200 Triglycerides 58 mg/dL 0-249 7 HDL 68 mg/dL High 40-60 LDL-Calculated 74 mg/dL 0-130 VLDL 12 mg/dL 0-28 Cardiac Risk 2.26 Ratio Low 3.7-5.3 Laboratory test finding 05/30/2021 [facility] [address] [place] [address] [phone] HGB A1c <pending> TSH3 9.514 mIU/ml High 0.350-5.500 8 Uric Acid 10.7 mg/dL High 2.6-7.2 9 Vitamin D, 25(Oh). 23.68 ng/ml Low 30-100 10 CBC With Differential 05/24/[address] [id number] [phone] White Blood Count 7.0 10 Normal 4.0-10.0 [...] 36.0-66.0 Lymph % 7.1 % Low 24.0-44.0 [place] % 4.7 % Normal 2.0-8.0 Eos % 0.7 % Normal 0.0-3.0 Baso % 0.3 % Normal 0.0-1.0 Immature Granulocyte % 0.6 % Normal 0-3.0 Nucleated Red Blood Cell % 0.0 % Normal 0-0 Neutrophils # 6.1 10 Normal 1.5-8.5 Lymph # 0.5 10 Low 1.5-5.0 [place] # 0.3 10 Normal 0.0-0.8 Eos # 0.1 10 Normal 0.0-0.5 Baso # 0.0 10 Normal 0.0-0.2 Comprehensive Metabolic Profil 05/24/[address] [id number] [phone] Glucose, Fasting 89 mg/dL Normal 70-100 Blood Urea Nitrogen 63 mg/dL High 7-18 Creatinine For GFR 3.87 mg/dL High 0.70-1.30 Glomerular Filtration Rate 15.7 Low >35 1 1 Sodium Level 139 mEq/L Normal 136-145 Potassium [...] GM/DL Low 3.2-5.2 Albumin/Globulin Ratio 0.6 Normal CMP-Male 04/19/2021 [facility] [address] [place], [place] [address] [phone] Glucose 94 mg/dL 74-106 12 BUN 85 mg/dL 6-20 13 Creatinine 5.6 mg/dL 0.5-1.3 14 Sodium 132 mmol/L Low 136-145 15 Potassium 3.6 mmol/L 3.5-5.3 Chloride 96 mmol/L Low 98-107 Co2 23 mEq/L 20-31 Anion Gap 13 mmol/L 7-16 eGFR-male 10 mL/m/1.73m - eGFR-Aa male 12 mL/m/1.73m - 16 Alk. Phos. 74 U/L 46-116 Alt 19 U/L 4-36 17 Ast 26 U/L 8-33 Total Bilirubin 0.3 mg/dL 0.3-1.2 Total Protein 5.4 g/dL Low 6.4-8.3 18 Albumin 3.0 g/dL Low 3.6-5.1 A/G Ratio 1.3 Ratio 1.0-2.0 Globulin 2.4 g/dL 1.9-3.7 Calcium 7.8 mg/dL Low 8.9-10.5 Cbcadp 04/19/2021 [facility] [address] [place] [id number] [phone] WBC. 8.30 x10E3/uL 4.2-12.0 RBC 3.61 x10E6/uL Low 4.4-6.0 19 HGB 11.0 g/dL Low 13.8-18.0 HCT 34.8 % Low 39-52 MCV 96.4 fL 80-98 MCH 30.6 pg 27-33 MCHC 31.7 g/dL Low 32-36 RDW 14.8 % 11.2-15.2 PLT 247 x10E3/uL 135-420 MPV 8.1 fL 7.0-12.3 % Indra 93.0 % High 41.0-80.0 %Lym 4.6 % Low 10.0-45.2 %[place] 2.1 % 2.0-13.0 %Eos 0.1 % 0.0-8.0 %Baso 0.1 % 0.0-3.0 Neut 7.7 x10E3/uL 2.0-8.1 Lymp 0.4 x10E3/uL Low 0.6-3.1 [place] 0.2 x10E3/uL 0.0-1.0 Eos 0.0 x10E3/uL 0.0-0.6 Baso 0.0 x10E3/uL 0.0-0.2 Laboratory test finding 04/19/2021 [facility] [address] [place] [address] [phone] BNP 1015.8 pg/mL High 0-100 Manual Diff 04/19/2021 [facility] [address] [place] [address] [phone] Segs 89 % High 40-60 Band 0 % Low 3-5 Lymph 8 % Low 21-45 Monos 2 % Low 6-12 Eosinophils 0 % Low 1-5 Basophils 0 % Low 1-3 Atyp Lymph 1 % - Laboratory test finding 04/19/2021 [facility] [address] [place] [address] [phone] Venipuncture DONE - Influenza A/B RSV Covid Amp 04/04/[address] [address] [phone] Influenza A Amplification NEGATIVE Normal Negati ve 20 Influenza B Amplification NEGATIVE Normal Negative 21 RSV Amplification NEGATIVE Normal Negative 22 Sars Covid-19 Amplification NEGATIVE Normal Negative 23 Laboratory test finding 04/04/[address] [address] [phone] Magnesium Level 1.5 mg/dL Low 1.8-2.4 NT-Pro BNP 8105 pg/mL High <450 Thyroid Stimulating Hormone 3.550 uIU/ML Normal 0.358-3.740 Basic Metabolic Profile 04/04/[address] [address] [phone] Glucose, Fasting 95 mg/dL Normal 70-100 Blood Urea Nitrogen 130 mg/dL High 7-18 Creatinine For GFR 8.50 mg/dL Critical high 0.70-1.30 Glomerular Filtration Rate 6.4 Low >35 2 4 Sodium Level 135 mEq/L Low 136-145 Potassium Serum 4.5 mEq/L Normal 3.5-5.1 Chloride Level 105 mEq/L Normal 98-107 Carbon Dioxide Level 20 mEq/L Low 21-32 Anion Gap 10 mEq/L Normal 8-16 Calcium Level 8.3 mg/dL Low 8.8-10.2 Liver Profile 04/04/2021 [facility] nter [address] [place] [address] [phone] Ast/Sgot 10 U/L Normal 7-37 Alt/SGPT 18 U/L Normal 12-78 Alkaline Phosphatase 100 U/L Normal 45-117 Bilirubin,Total 0.3 mg/dL Normal 0.2-1.0 Bilirubin,Direct 0.1 mg/dL Normal 0.0-0.2 Total Protein 6.0 GM/DL Low 6.4-8.2 Albumin 2.8 GM/DL Low 3.2-5.2 Albumin/Globulin Ratio 0.9 Normal Cardiac Marker Panel 04/04/2021 [facility] [address] [place] [address] [phone] CPK Creatine Phosphokinase 95 U/L Normal 39-30 8 CK-MB Value Mass 3.3 NG/ML Normal <3.6 MB/CK Relative Index 3.47 Normal < Or =4 25 Troponin I 0.03 NG/ML Normal < 0.10 26 CBC With Differential 04/04/2021 [facility] [address] [place] [address] [phone] White Blood Count 4.5 10 Normal 4.0-10.0 [...] 36.0-66.0 Lymph % 9.0 % Low 24.0-44.0 [place] % 7.9 % Normal 2.0-8.0 Eos % 0.0 % Normal 0.0-3.0 Baso % 0.0 % Normal 0.0-1.0 Immature Granulocyte % 0.2 % Normal 0-3.0 Nucleated Red Blood Cell % 0.0 % Normal 0-0 Neutrophils # 3.8 10 Normal 1.5-8.5 Lymph # 0.4 10 Low 1.5-5.0 [place] # 0.4 10 Normal 0.0-0.8 Eos # 0.0 10 Normal 0.0-0.5 Baso # 0.0 10 Normal 0.0-0.2 Cbcadp 12/19/2020 [facility] [address] [facility] [address] [phone] WBC. 5.30 x10E3/uL 4.2-12.0 RBC 3.94 x10E6/uL Low 4.4-6.0 HGB 12.1 g/dL Low 13.8-18.0 HCT 38.7 % Low 39-52 MCV 98.0 fL 80-98 MCH 30.7 pg 27-33 MCHC 31.3 g/dL Low 32-36 RDW 13.7 % 11.2-15.2 PLT 162 x10E3/uL 135-420 MPV 9.0 fL 7.0-12.3 % Indra 73.6 % 41.0-80.0 %Lym 19.7 % 10.0-45.2 %[place] 4.2 % 2.0-13.0 %Eos 2.1 % 0.0-8.0 %Baso 0.4 % 0.0-3.0 Neut 3.9 x10E3/uL 2.0-8.1 Lymp 1.0 x10E3/uL 0.6-3.1 [place] 0.2 x10E3/uL 0.0-1.0 Eos 0.1 x10E3/uL 0.0-0.6 Baso 0.0 x10E3/uL 0.0-0.2 Iron Panel Office 12/19/2020 [facility] [address] [place] [address] [phone] Iron 77 g/dL 50-175 27 Tibc 379 g/dL 250-450 28 Ferritin 19 ng/ml Low 22.0-322.0 29 % Saturation 20 % 13-48 30 Laboratory test finding 12/19/2020 [facility] [address] [place] [address] [phone] B12 5251 pg/mL High 211-911 31 CMP-Male 12/19/2020 [facility] [address] [place] [address] [phone] Glucose 110 mg/dL High 74-106 32 BUN 86 mg/dL 6-20 33 Creatinine 3.4 mg/dL High 0.5-1.3 Sodium 138 mmol/L 136-145 Potassium 4.8 mmol/L 3.5-5.3 Chloride 103 mmol/L 98-107 Co2 26 mEq/L 20-31 Anion Gap 9 mmol/L 7-16 eGFR-male 17 mL/m/1.73m - eGFR-Aa male 21 mL/m/1.73m - 34 Alk. Phos. 81 U/L 46-116 Alt 18 U/L 4-36 35 Ast 27 U/L 8-33 Total Bilirubin 0.4 mg/dL 0.3-1.2 Total Protein 6.6 g/dL 6.4-8.3 36 Albumin 4.5 g/dL 3.6-5.1 A/G Ratio 2.1 Ratio High 1.0-2.0 Globulin 2.1 g/dL 1.9-3.7 Calcium 9.0 mg/dL 8.9-10.5 LPPM 12/19/2020 [facility] [address] [place] [address] [phone] Cholesterol 146 mg/dL 0-200 Triglycerides 84 mg/dL 0-249 37 HDL 59 mg/dL 40-60 LDL-Calculated 70 mg/dL 0-130 VLDL 17 mg/dL 0-28 Cardiac Risk 2.47 Ratio Low 3.7-5.3 Laboratory test finding 12/19/2020 [facility] [address] [place] [address] [phone] Venipuncture DONE - 38 1 Results Confirmed on Dilutio n. 2 [place] Diabetes Associatio n (ADA) Recommended Range is 65-99 mg/dL 3 Results Confirmed by Repeat Analysis. Tried to call no answer 1913 lori Consistent with previous results [facility] and transmitted [id number] lori 05/30/2021 4 Normal Kidney Function or Mi ld Disease GFR >59 mL/min/1.73m2 Chronic Kidney Disease GFR 15-59 mL/min/1.73m2 Renal Failure GFR <15 mL/min/1.73m2 5 Effective 02/23/2017: [employer] has indicated interference with the drugs sulfasalazine and sulfapyridine. They suggest collection should occur prior to drug administration due to falsely depressed results. 6 Results may reflect a potent ial interference in Total Protein results in patients receiving dextran as blood volume expanders. 7 National Cholesterol Educati on Program (NCEP) Guidelines: Recommended Range <150 mg/dL 8 not fasting 9 not fasting 10 Recommended Levels for Circu lating 25-hydroxy Vitamin D: Vitamin D Status 25-OH Vitamin D Test Result Deficient <10ng/mL Insufficient 10-29ng/mL Sufficient 30-100ng/mL Potential Intoxication >100ng/mL A pediatric reference range has not been established using this method. 11 Units are mL/min/1.73 m2 Chronic Kidney Disease Staging per NKF: Stage I & II GFR >=60 Normal to Mildly Decreased Stage III GFR 30-59 Moderately Decreased Stage IV GFR 15-29 Severely Decreased Stage V GFR <15 Very Little GFR Left ESRD GFR <15 on [employer]ICAL 12 [place] Diabetes Associatio n (ADA) Recommended Range is 65-99 mg/dL 13 Results Confirmed by Repeat Analysis. Results faxed at 1053 04/20/21 kk Called to Lauren at [phone] kk 14 Results Confirmed by Repeat Analysis. Results faxed at 1053 8/ kk Called to Lauren at 1053 04/20/21 kk 15 Results Confirmed by Repeat Analysis. 16 Normal Kidney Function or Mi ld Disease GFR >59 mL/min/1.73m2 Chronic Kidney Disease GFR 15-59 mL/min/1.73m2 Renal Failure GFR <15 mL/min/1.73m2 17 Effective 02/23/2017: [employer] has indicated interference with the drugs sulfasalazine and sulfapyridine. They suggest collection should occur prior to drug administration due to falsely depressed results. 18 Results may reflect a potent ial interference in Total Protein results in patients receiving dextran as blood volume expanders. 19 1+ Ovalocytes 2+ Anisocytosis 1+ Hypochromasia 20 Negative results do not prec lude influenza or RSV virus infection and should not be used as the sole basis for treatment or other patient management decisions. 21 Negative results do not prec lude influenza or RSV virus infection and should not be used as the sole basis for treatment or other patient management decisions. 22 Negative results do not prec lude influenza or RSV virus infection and should not be used as the sole basis for treatment or other patient management decisions. 23 A false negative result may occur if [...] pathogens. DISCLAIMER: Testing was performed using the [employer] SARS-CoV-2 test. This test was developed and its performance characteristics determined by [employer]. This test has not been FDA cleared [...] the authorization is terminated or revoked sooner. 24 Units are mL/min/1.73 m2 Chronic Kidney Disease Staging per NKF: Stage I & II GFR >=60 Normal to Mildly Decreased Stage III GFR 30-59 Moderately Decreased Stage IV GFR 15-29 Severely Decreased Stage V GFR <15 Very Little GFR Left ESRD GFR <15 on [employer] 25 DIAGNOSIS CRITERIA MMB ng/ml Relative Index (RI) NON-AMI < or = 5 N/A [place]ONE > 5 < or = 4 AMI > 5 > 4 26 Troponin I Reference Interva l for THE MELT LOCI: 99th Percentile= 0.00-0.045 ng/ml Risk Stratification: <= 0.10 ng/ml Decreased Risk for Adverse Clinical Events. 0.10-1.50 ng/ml Increased Risk for Adv erse Clinical Events. Evaluation of additional criterion and/or repeat testing in 2-6 hours is suggested to rule out myocardial damage. >= 1.50 ng/ml Indicative of Myocardial Injury. 27 not fasting 28 not fasting 29 not fasting 30 not fasting 31 Results Confirmed on Dilutio n. 32 [place] Diabetes Associatio n (ADA) Recommended Range is 65-99 mg/dL 33 Results Confirmed by Repeat Analysis. Results faxed at 437 12/19/20 kk Called to Lauren at 437 12/19/20 kk 34 Normal Kidney Function or Mi ld Disease GFR >59 mL/min/1.73m2 Chronic Kidney Disease GFR 15-59 mL/min/1.73m2 Renal Failure GFR <15 mL/min/1.73m2 35 Effective 02/23/2017: [employer] has indicated interference with the drugs sulfasalazine and sulfapyridine. They suggest collection should occur prior to drug administration due to falsely depressed results. 36 Results may reflect a potent ial interference in Total Protein results in patients receiving dextran as blood volume expanders. 37 National Cholesterol Educati on Program (NCEP) Guidelines: Recommended Range <150 mg/dL 38 not fasting Procedures Date Code Description Status 04/19/2021 03418 TCM-Mod Completed 12/19/2020 95271 Office/Outpatient Established Mo d MDM 30-39 Min [...] I50.32 Chronic diastolic (congestive) h eart failure [facility] 04/19/2021 N18.9 Chronic kidney disease, [...] 12:20 pm - Frantz Woody MD at [facility] [place] 05/30/2021 - Frantz Woody MD* A04.72 Enterocolitis [...]
--- OUTSIDE RECORDS SUMMARY | 2021-06-07 11:27 | CCD | Continuity of Care Document ---
Author Author Jose Ramon WOODY MD Organization Unknown Address [address] [place] [address], [address] [place] [address] Phone [phone] Care Team Providers Care Single End Sewer Name Role Phone Frantz Woody MD AUTM [phone] Arnaldo Flores MD AUTM [facility] Dmitriy Umaña MD AUTM [phone] [facility] AUTM [phone] [facility] Service - Public Health, Stat e or Local AUTM [phone] Problems Active Problems Provider Date Vertigo Onset: [...] CPT Code Status Date Vaccine Lot # [id number] Given 05/30/2021 Influenza High Dose 67>,Flua d Quadrivalent [id number] 24243 Given 11/28/2020 Moderna Covid-19 Sars-Cov-2, mRNA, LNP-S, PF, 100 mcg/ 0.5 mL 11696 Given 10/28/2020 Moderna Covid-19 Sars-Cov-2, mRNA, LNP-S, PF, 100 mcg/ 0.5 mL 60715 Given 07/17/2019 Influenza Vaccin e, High Dose > 65 Years Old (Includes Medicare) 11467 Given 07/29/2018 Pneumococcal (Pneumovax 23) [id number] 88663 Given 07/09/2018 Influenza Vaccin e, High Dose > 65 Years Old (Includes Medicare) 81739 Given 07/10/2017 Influenza Vaccin e, High Dose > 65 Years Old (Includes Medicare) [id number] 03728 Given 03/14/2016 Prevnar 13 [id number] 38922 Given 07/06/2015 Influenza Vaccin e, High Dose > 65 Years Old (Includes Medicare) 01448 Given 06/06/2011 Influenza Virus Vaccine, Spl [place] 3 [place] [address] Given 05/23/2010 Influenza Virus Vaccine, Spl [place] 3 [place] [address] Given 05/26/2008 Influenza Virus Vaccine, Spl it [place] [address] Given 06/09/2007 Influenza Virus Vaccine, Spl [place] [address] Given 04/23/2007 Zostavax 37968 Given 06/07/2006 Influenza Virus Vaccine, Spl it 3 [place] [address] Given 09/24/2003 Tdap Vital Signs Date Vital [...] H/L Range Note Laboratory test finding 05/30/2021 [facility] [address] [place] [address] [phone] B12 8765 pg/mL High 211-911 1 CMP-Male 05/30/2021 [facility] [address] [place] [address] [phone] Glucose 102 mg/dL 74-106 2 BUN 78 [...] Calcium 8.0 mg/dL Low 8.9-10.5 LPPM 05/30/2021 [facility] [address] [place] [address] [phone] Cholesterol 154 mg/dL 0-200 Triglycerides 58 mg/dL 0-249 7 HDL 68 mg/dL High 40-60 LDL-Calculated 74 mg/dL 0-130 VLDL 12 mg/dL 0-28 Cardiac Risk 2.26 Ratio Low 3.7-5.3 Laboratory test finding 05/30/2021 [facility] [address] [place] [address] [phone] HGB A1c <pending> TSH3 9.514 mIU/ml High 0.350-5.500 8 Uric Acid 10.7 mg/dL High 2.6-7.2 9 Vitamin D, 25(Oh). 23.68 ng/ml Low 30-100 10 CBC With Differential 05/24/[address] [id number] [phone] White Blood Count 7.0 10 Normal 4.0-10.0 [...] 36.0-66.0 Lymph % 7.1 % Low 24.0-44.0 [place] % 4.7 % Normal 2.0-8.0 Eos % 0.7 % Normal 0.0-3.0 Baso % 0.3 % Normal 0.0-1.0 Immature Granulocyte % 0.6 % Normal 0-3.0 Nucleated Red Blood Cell % 0.0 % Normal 0-0 Neutrophils # 6.1 10 Normal 1.5-8.5 Lymph # 0.5 10 Low 1.5-5.0 [facility] # 0.3 10 Normal 0.0-0.8 Eos # 0.1 10 Normal 0.0-0.5 Baso # 0.0 10 Normal 0.0-0.2 Comprehensive Metabolic Profil 05/24/[address] [id number] [phone] Glucose, Fasting 89 mg/dL Normal 70-100 Blood [...] 3.2-5.2 Albumin/Globulin Ratio 0.6 Normal CMP-Male 04/19/2021 [facility] [address] [place], [place] [id number] [phone] Glucose 94 mg/dL 74-106 12 BUN 85 [...] Calcium 7.8 mg/dL Low 8.9-10.5 Cbcadp 04/19/2021 [facility] [address] [place] [address] [phone] WBC. 8.30 x10E3/uL 4.2-12.0 RBC 3.61 x10E6/uL Low 4.4-6.0 19 HGB 11.0 g/dL Low 13.8-18.0 HCT 34.8 % Low 39-52 MCV 96.4 fL 80-98 MCH 30.6 pg 27-33 MCHC 31.7 g/dL Low 32-36 RDW 14.8 % 11.2-15.2 PLT 247 x10E3/uL 135-420 MPV 8.1 fL 7.0-12.3 % Indra 93.0 % High 41.0-80.0 %Lym 4.6 % Low 10.0-45.2 %[place] 2.1 % 2.0-13.0 %Eos 0.1 % 0.0-8.0 %Baso 0.1 % 0.0-3.0 Neut 7.7 x10E3/uL 2.0-8.1 Lymp 0.4 x10E3/uL Low 0.6-3.1 [facility] 0.2 x10E3/uL 0.0-1.0 Eos 0.0 x10E3/uL 0.0-0.6 Baso 0.0 x10E3/uL 0.0-0.2 Laboratory test finding 04/19/2021 [facility] [address] [place] [address] [phone] BNP 1015.8 pg/mL High 0-100 Manual Diff 04/19/2021 [facility] [address] [place] [address] [phone] Segs 89 % High 40-60 Band 0 % Low 3-5 Lymph 8 % Low 21-45 Monos 2 % Low 6-12 Eosinophils 0 % Low 1-5 Basophils 0 % Low 1-3 Atyp Lymph 1 % - Laboratory test finding 04/19/2021 [facility] [address] [place] [address] [phone] Venipuncture DONE - Influenza A/B RSV Covid Amp 04/04/[address] [address] [phone] Influenza A Amplification NEGATIVE Normal Negati ve 20 Influenza B Amplification NEGATIVE Normal Negative 21 RSV Amplification NEGATIVE Normal Negative 22 Sars Covid-19 Amplification NEGATIVE Normal Negative 23 Laboratory test finding 04/04/[address] [address] [phone] Magnesium Level 1.5 mg/dL Low 1.8-2.4 NT-Pro BNP 8105 pg/mL High <450 Thyroid Stimulating Hormone 3.550 uIU/ML Normal 0.358-3.740 Basic Metabolic Profile 04/04/[address] [address] [phone] Glucose, Fasting 95 mg/dL Normal 70-100 Blood [...] 8.3 mg/dL Low 8.8-10.2 Liver Profile 04/04/2021 [facility] [address] [place] [address] [phone] Ast/Sgot 10 U/L Normal 7-37 Alt/SGPT 18 U/L Normal 12-78 Alkaline Phosphatase 100 U/L Normal 45-117 Bilirubin,Total 0.3 mg/dL Normal 0.2-1.0 Bilirubin,Direct 0.1 mg/dL Normal 0.0-0.2 Total Protein 6.0 GM/DL Low 6.4-8.2 Albumin 2.8 GM/DL Low 3.2-5.2 Albumin/Globulin Ratio 0.9 Normal Cardiac Marker Panel 04/04/2021 [facility] enter [address] [place] [address] [phone] CPK Creatine Phosphokinase 95 U/L Normal 39-30 8 CK-MB Value Mass 3.3 NG/ML Normal <3.6 MB/CK Relative Index 3.47 Normal < Or =4 25 Troponin I 0.03 NG/ML Normal < 0.10 26 CBC With Differential 04/04/2021 [facility] [address] [place] [address] [phone] White Blood Count 4.5 10 Normal 4.0-10.0 [...] 36.0-66.0 Lymph % 9.0 % Low 24.0-44.0 [place] % 7.9 % Normal 2.0-8.0 Eos % 0.0 % Normal 0.0-3.0 Baso % 0.0 % Normal 0.0-1.0 Immature Granulocyte % 0.2 % Normal 0-3.0 Nucleated Red Blood Cell % 0.0 % Normal 0-0 Neutrophils # 3.8 10 Normal 1.5-8.5 Lymph # 0.4 10 Low 1.5-5.0 [place] # 0.4 10 Normal 0.0-0.8 Eos # 0.0 10 Normal 0.0-0.5 Baso # 0.0 10 Normal 0.0-0.2 Cbcadp 12/19/2020 [facility] [address] [facility] [place] [address] [phone] WBC. 5.30 x10E3/uL 4.2-12.0 RBC 3.94 x10E6/uL Low 4.4-6.0 HGB 12.1 g/dL Low 13.8-18.0 HCT 38.7 % Low 39-52 MCV 98.0 fL 80-98 MCH 30.7 pg 27-33 MCHC 31.3 g/dL Low 32-36 RDW 13.7 % 11.2-15.2 PLT 162 x10E3/uL 135-420 MPV 9.0 fL 7.0-12.3 % Indra 73.6 % 41.0-80.0 %Lym 19.7 % 10.0-45.2 %[place] 4.2 % 2.0-13.0 %Eos 2.1 % 0.0-8.0 %Baso 0.4 % 0.0-3.0 Neut 3.9 x10E3/uL 2.0-8.1 Lymp 1.0 x10E3/uL 0.6-3.1 [facility] 0.2 x10E3/uL 0.0-1.0 Eos 0.1 x10E3/uL 0.0-0.6 Baso 0.0 x10E3/uL 0.0-0.2 Iron Panel Office 12/19/2020 [facility] [address] [place] [address] [phone] Iron 77 g/dL 50-175 27 Tibc 379 g/dL 250-450 28 Ferritin 19 ng/ml Low 22.0-322.0 29 % Saturation 20 % 13-48 30 Laboratory test finding 12/19/2020 [facility] [address] [place] [address] [phone] B12 5251 pg/mL High 211-911 31 CMP-Male 12/19/2020 [facility] [address] [place] [address] [phone] Glucose 110 mg/dL High 74-106 32 BUN [...] 1.9-3.7 Calcium 9.0 mg/dL 8.9-10.5 LPPM 12/19/2020 [facility] [address] [place] [address] [phone] Cholesterol 146 mg/dL 0-200 Triglycerides 84 mg/dL 0-249 37 HDL 59 mg/dL 40-60 LDL-Calculated 70 mg/dL 0-130 VLDL 17 mg/dL 0-28 Cardiac Risk 2.47 Ratio Low 3.7-5.3 Laboratory test finding 12/19/2020 [facility] [address] [place] [address] [phone] Venipuncture DONE - 38 1 Results Confirmed on Dilutio n. 2 [place] Diabetes Associ[place] n (ADA) Recommended Range is 65-99 mg/dL 3 Results Confirmed by Repeat Analysis. Tried to call no answer 8467 lori Consistent with previous results [facility] and transmitted 0912 lori 05/30/2021 4 Normal Kidney Function or Mi ld Disease GFR >59 mL/min/1.73m2 Chronic Kidney Disease GFR 15-59 mL/min/1.73m2 Renal Failure GFR <15 mL/min/1.73m2 5 Effective 02/23/2017: [facility] has indicated interference with the drugs sulfasalazine [...] Little GFR Left ESRD GFR <15 on MANAGER FILE 12 [place] Diabetes Associatio n (ADA) Recommended Range is [...] Failure GFR <15 mL/min/1.73m2 17 Effective 02/23/2017: [facility] has indicated interference with the drugs sulfasalazine [...] pathogens. DISCLAIMER: Testing was performed using the [employer] SARS-CoV-2 test. This test was developed and its performance characteristics determined by [employer]. This test has not been FDA cleared [...] Little GFR Left ESRD GFR <15 on MANAGER FILE 25 DIAGNOSIS CRITERIA MMB ng/ml Relative Index (RI) NON-AMI < or = 5 N/A [place] ZONE > 5 < or = 4 AMI > 5 > 4 26 Troponin I Reference Interva l for Disability Care Givers LOCI: 99th Percentile= 0.00-0.045 ng/ml Risk Stratification: [...] 31 Results Confirmed on Dilutio n. 32 [place] Diabetes Associatio n (ADA) Recommended Range is 65-99 mg/dL 33 Results Confirmed by Repeat Analysis. Results faxed at 437 12/19/20 kk Called to Lauren at 437 12/19/20 kk 34 Normal Kidney Function or Mi ld Disease GFR >59 mL/min/1.73m2 Chronic Kidney Disease GFR 15-59 mL/min/1.73m2 Renal Failure GFR <15 mL/min/1.73m2 35 Effective 02/23/2017: [facility] has indicated interference with the drugs sulfasalazine [...] fasting Procedures Date Code Description Status 04/19/2021 88778 TCM-Mod Completed 12/19/2020 85247 Office/Outpatient Established Mo d MDM 30-39 Min [...] 12:20 pm - Frantz Woody MD at [facility] [place] 05/30/2021 - Frantz Woody MD* A04.72 Enterocolitis [...]
--- OUTSIDE RECORDS SUMMARY | 2021-06-07 11:27 | CCD | Continuity of Care Document ---
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) 10-Apr-2021 Status: Active Personal history of nicotine dependence (Z87.891) 16-Apr-2021 Status: Active Personal history of transient ischemic attack (TIA), 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) 16-Apr-2021 Status: Active care home (current) use of aspirin (Z79.82) 16-Apr-2021 Status: Active History of falling (Z91.81) 16-Apr-2021 Status: Active 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) 16-Apr-2021 Status: Active Migraine, unspecifi ed, not intractable, without status migrainosus (G43.909) 16-Apr-2021 Status: Active 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) 16-Apr-2021 Status: Active 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) 16-Apr-2021 Status: Active Acute kidney failur e, unspecified (N17.9) 16-Apr-2021 Status: Active Acidosis ( E87.2) 16-Apr-2021 Status: Active Chronic kidney dise ase, 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) 16-Apr-2021 Status: Active 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) 16-Apr-2021 Status: Active Hypertensive heart and chronic kidney disease with heart failure and stage 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, or unspecified chronic kidney disease (I13.0) 16-Apr-2021 Status: Active Dehydration (E86.0) 16-Apr-2021 Status: Active Acquired absence of other specified parts of digestive tract (Z90.49) 16-Apr-2021 Status: Active Medications Name Dates Details Tylenol Extra Strength 500 MG take PRN for pain 3/10 or greater, MDD 6 tablets Frantz Woody Active Torsemide 100 MG Frantz Woody* Start : 17-Apr-2021 End : 17-Apr-2021 Inactive Torsemide 100 MG Frantz Woody* Start : 16-Apr-2021 Active Dificid 200 MG Frantz Woody* Start : 16-Apr-2021 End : 17-Apr-2021 Inactive raNITIdine HCl 150 MG Frantz Woody* Start : 16-Apr-2021 Active Aspirin 81 81 MG Frantz Woody* Start : 16-Apr-2021 Active Calcitriol 0.25 MCG Take Saturday, Saturday, Saturday Frantz Woody* Start : 16-Apr-2021 Active Metoprolol Succinate ER 25 MG Frantz Woody* Start : 16-Apr-2021 Active Lokelma 5 GM Mix in 1/3 cup water and take once a week on Sundays Frantz Woody* Start : 16-Apr-2021 Active Allergies and Adverse Reactions Name Dates Details Ramipril (Allergy) Onset: 16-Apr-2021 Status: Active Results Date Description Value Details No Known Results Plan of Care Name Dates Details Instructions Diet:Regular Diet Ins truction Type: Nutrition education Payers * Medicare - [facility] * [facility]
--- OUTSIDE RECORDS SUMMARY | 2021-06-07 11:27 | CCD ---
Author Author [facility] Organization [facility] Address Unknown Phone Unavailable Care Team Providers Care Real Estate Analyst Name Role Phone Oh Santiago Unavailable PROBLEMS No Information ALLERGIES No Known Allergies ENCOUNTERS from 1930 to 2021-06-03 Encounter Location Date Provider Diagnosis [facility] [address] [phone] [place] [address] May, Oh Santiago Hydronephrosis, unspecified hydronephros is type N13.30 IMMUNIZATIONS No Information SOCIAL HISTORY Tobacco Use: Social History Observation Description Date Details (start date - stop date) Former Smoker Sex Assigned At : Social History Observation Description Sex Assigned At Unknown Language: Question Answer Notes Languages spoken: Lao Catholic: Question Answer Notes Catholic No orthodoxy beliefs that would impact health care. Alcohol Screening: Question Answer Notes Did you have a drink containing alcohol in the past year? No Points 0 Interpretation Negative Tobacco Use: Question Answer Notes Are you a: former smoker quit 1983 REASON FOR REFERRAL No Information VITAL SIGNS Weight 157 lbs May, Height 68 in May, BMI 23.87 kg/m2 May, Heart Rate 120 /min May, Respiratory Rate 18 /min May, Temperature 96.6 degrees Fahrenheit May, Oximetry 84 May, Blood pressure systolic 136 mm Hg May, Blood pressure diastolic 78 mm Hg May, MEDICATIONS Medication SIG (Take, Route, Frequency, Duration) Notes Start Da te End Date Status Tamsulosin HCl 0.4 MG 1 capsule 30 minutes after t he same meal each day Orally Once a day for 30 day(s) Active Acidophilus 500 MG as directed Orally Active Metoprolol Succinate 25 MG 1 capsule Orally Once a day for 30 day(s) Active Calcitriol 0.25 MCG 1 capsule Orally Once a day for 30 day(s) Active Finasteride 5 MG 1 tablet Orally Once a day for 30 day(s) Active Sodium Zirconium Cyclosilicate 5 GM 1 packet dissolved in water Orally for 30 day(s) Active Torsemide 10 MG 1 tablet Orally Once a day for 30 day(s) Active Aspirin 81 81 MG 1 tablet Orally Once a day for 30 day(s) Active Fidaxomicin 200 MG 1 tablet Orally Twice a day for 10 day(s) Active Cyanocobalamin 1000 MCG as directed Orally Active PROCEDURES from 1932 to 2021-06-03 Procedure Date Ordered Result Body Site Med: Lidocaine Jelly 2% 6ml Intravesically (Glydo) 2021-05-31 N/A RESULTS No Results REASON FOR VISIT cystoscopy, penile infection? MEDICAL (GENERAL) HISTORY Type Description Date Medical History small bowel obstruction Medical History CHF Medical History Acute renal failure Medical History stable angina Medical History brdycardia Medical History high degree atrioventricular block Medical History dehydration Medical History diarrhea Medical History WILLIAM Medical History hydronephrosis Medical History c-diff Medical History penile abnormality Medical History anemia Medical History CKD Medical History heart attacks Medical History pacemaker Surgical History colonoscopy Surgical History appendectomy Surgical History partial intestine removed Surgical History pacemaker Surgical History cysto 05/31/21 Surgical History colostomy Hospitalization History surgery related Goals Section No Information Health Concerns No Information MEDICAL EQUIPMENT No Information MENTAL STATUS No Information FUNCTIONAL STATUS No Information ASSESSMENTS Encounter Date Diagnosis Assessment Notes Treatment Notes Treatm ent Clinical Notes May, Hydronephrosis, unspecified hydronephros is type (ICD-10 - N13.30) PLAN OF TREATMENT Treatment Notes Test Name Order Date [facility] RENAL US 2021-05-31 Next Appt Details 4 to 6 weeks with kidney ultrasound Reas on:Bilateral hydro- Provider Name:Oh Santiago, 2021-06-26 7 09:15:00 AM, [address], , [place], [address], Follow Up:4 to 6 weeks with kidney ultrasoundBilateral hydro- Insurance Providers Payer Name Payer Address Payer Phone Insured Name Patient Relati onship to Insured Coverage Start Date Coverage End Date [facility] RR RETIRED RAILROAD [address] [address] [facility] [id number] LILIAN GARNER self MEDICARE RR [address] [address] [facility] [id number] LILIAN GARNER self
--- OUTSIDE RECORDS SUMMARY | 2021-06-07 11:27 | CCD | Continuity of Care Document ---
Author Author Jose Ramon WOODY MD Organization Unknown Address [address] [place] [address], [address] [place] [address] Phone [phone] Care Team Providers Care [employer] Sports Coach Name Role Phone Frantz Woody MD AUTM [phone] Arnaldo Flores MD AUTM [facility] Dmitriy Umaña MD AUTM [phone] [facility] AUTM [phone] [facility] Service - Public Health, Stat e or Local AUTM [phone] Problems Active Problems Provider Date Vertigo Onset: [...] CPT Code Status Date Vaccine Lot # [id number] Given 05/30/2021 Influenza High Dose 67>,Flua d Quadrivalent [id number] 50916 Given 11/28/2020 Moderna Covid-19 Sars-Cov-2, mRNA, LNP-S, PF, 100 mcg/ 0.5 mL 04347 Given 10/28/2020 Moderna Covid-19 Sars-Cov-2, mRNA, LNP-S, PF, 100 mcg/ 0.5 mL 27712 Given 07/17/2019 Influenza Vaccin e, High Dose > 65 Years Old (Includes Medicare) 02450 Given 07/29/2018 Pneumococcal (Pneumovax 23) [id number] 74667 Given 07/09/2018 Influenza Vaccin e, High Dose > 65 Years Old (Includes Medicare) 07042 Given 07/10/2017 Influenza Vaccin e, High Dose > 65 Years Old (Includes Medicare) [id number] 30928 Given 03/14/2016 Prevnar 13 [id number] 66136 Given 07/06/2015 Influenza Vaccin e, High Dose > 65 Years Old (Includes Medicare) 00472 Given 06/06/2011 Influenza Virus Vaccine, Spl [place] 3 [place] [address] Given 05/23/2010 Influenza Virus Vaccine, Spl [place] 3 [place] [address] Given 05/26/2008 Influenza Virus Vaccine, Spl [place] [address] Given 06/09/2007 Influenza Virus Vaccine, Spl [place] [address] Given 04/23/2007 Zostavax 53613 Given 06/07/2006 Influenza Virus Vaccine, Spl it [address] [place] [address] Given 09/24/2003 Tdap Vital Signs Date Vital [...] H/L Range Note Laboratory test finding 05/30/2021 [facility] [address] [place] [address] [phone] B12 8765 pg/mL High 211-911 1 CMP-Male 05/30/2021 [facility] [address] [place] [address] [phone] Glucose 102 mg/dL 74-106 2 BUN 78 [...] Calcium 8.0 mg/dL Low 8.9-10.5 LPPM 05/30/2021 [facility] [address] [place] [address] [phone] Cholesterol 154 mg/dL 0-200 Triglycerides 58 mg/dL 0-249 7 HDL 68 mg/dL High 40-60 LDL-Calculated 74 mg/dL 0-130 VLDL 12 mg/dL 0-28 Cardiac Risk 2.26 Ratio Low 3.7-5.3 Laboratory test finding 05/30/2021 [facility] [address] [place] [address] [phone] HGB A1c <pending> TSH3 9.514 mIU/ml High 0.350-5.500 8 Uric Acid 10.7 mg/dL High 2.6-7.2 9 Vitamin D, 25(Oh). 23.68 ng/ml Low 30-100 10 CBC With Differential 05/24/[address] [id number] [phone] White Blood Count 7.0 10 Normal 4.0-10.0 [...] 36.0-66.0 Lymph % 7.1 % Low 24.0-44.0 [place] % 4.7 % Normal 2.0-8.0 Eos % 0.7 % Normal 0.0-3.0 Baso % 0.3 % Normal 0.0-1.0 Immature Granulocyte % 0.6 % Normal 0-3.0 Nucleated Red Blood Cell % 0.0 % Normal 0-0 Neutrophils # 6.1 10 Normal 1.5-8.5 Lymph # 0.5 10 Low 1.5-5.0 [place] # 0.3 10 Normal 0.0-0.8 Eos # 0.1 10 Normal 0.0-0.5 Baso # 0.0 10 Normal 0.0-0.2 Comprehensive Metabolic Profil 05/24/[address] [id number] [phone] Glucose, Fasting 89 mg/dL Normal 70-100 Blood [...] 3.2-5.2 Albumin/Globulin Ratio 0.6 Normal CMP-Male 04/19/2021 [facility] [address] [place], [place] [id number] [phone] Glucose 94 mg/dL 74-106 12 BUN 85 [...] Calcium 7.8 mg/dL Low 8.9-10.5 Cbcadp 04/19/2021 [facility] [address] [place] [address] [phone] WBC. 8.30 x10E3/uL 4.2-12.0 RBC 3.61 x10E6/uL Low 4.4-6.0 19 HGB 11.0 g/dL Low 13.8-18.0 HCT 34.8 % Low 39-52 MCV 96.4 fL 80-98 MCH 30.6 pg 27-33 MCHC 31.7 g/dL Low 32-36 RDW 14.8 % 11.2-15.2 PLT 247 x10E3/uL 135-420 MPV 8.1 fL 7.0-12.3 % Indra 93.0 % High 41.0-80.0 %Lym 4.6 % Low 10.0-45.2 %[place] 2.1 % 2.0-13.0 %Eos 0.1 % 0.0-8.0 %Baso 0.1 % 0.0-3.0 Neut 7.7 x10E3/uL 2.0-8.1 Lymp 0.4 x10E3/uL Low 0.6-3.1 [place] 0.2 x10E3/uL 0.0-1.0 Eos 0.0 x10E3/uL 0.0-0.6 Baso 0.0 x10E3/uL 0.0-0.2 Laboratory test finding 04/19/2021 [facility] [address] [place] [address] [phone] BNP 1015.8 pg/mL High 0-100 Manual Diff 04/19/2021 [facility] [address] [place] [address] [phone] Segs 89 % High 40-60 Band 0 % Low 3-5 Lymph 8 % Low 21-45 Monos 2 % Low 6-12 Eosinophils 0 % Low 1-5 Basophils 0 % Low 1-3 Atyp Lymph 1 % - Laboratory test finding 04/19/2021 [facility] [address] [place] [address] [phone] Venipuncture DONE - Influenza A/B RSV Covid Amp 04/04/[address] [address] [phone] Influenza A Amplification NEGATIVE Normal Negati ve 20 Influenza B Amplification NEGATIVE Normal Negative 21 RSV Amplification NEGATIVE Normal Negative 22 Sars Covid-19 Amplification NEGATIVE Normal Negative 23 Laboratory test finding 04/04/[address] [address] [phone] Magnesium Level 1.5 mg/dL Low 1.8-2.4 NT-Pro BNP 8105 pg/mL High <450 Thyroid Stimulating Hormone 3.550 uIU/ML Normal 0.358-3.740 Basic Metabolic Profile 04/04/[address] [address] [phone] Glucose, Fasting 95 mg/dL Normal 70-100 Blood [...] 8.3 mg/dL Low 8.8-10.2 Liver Profile 04/04/2021 [facility] [address] [place] [address] [phone] Ast/Sgot 10 U/L Normal 7-37 Alt/SGPT 18 U/L Normal 12-78 Alkaline Phosphatase 100 U/L Normal 45-117 Bilirubin,Total 0.3 mg/dL Normal 0.2-1.0 Bilirubin,Direct 0.1 mg/dL Normal 0.0-0.2 Total Protein 6.0 GM/DL Low 6.4-8.2 Albumin 2.8 GM/DL Low 3.2-5.2 Albumin/Globulin Ratio 0.9 Normal Cardiac Marker Panel 04/04/2021 [facility] enter [address] [place] [address] [phone] CPK Creatine Phosphokinase 95 U/L Normal 39-30 8 CK-MB Value Mass 3.3 NG/ML Normal <3.6 MB/CK Relative Index 3.47 Normal < Or =4 25 Troponin I 0.03 NG/ML Normal < 0.10 26 CBC With Differential 04/04/2021 [facility] [address] [place] [address] [phone] White Blood Count 4.5 10 Normal 4.0-10.0 [...] 36.0-66.0 Lymph % 9.0 % Low 24.0-44.0 [place] % 7.9 % Normal 2.0-8.0 Eos % 0.0 % Normal 0.0-3.0 Baso % 0.0 % Normal 0.0-1.0 Immature Granulocyte % 0.2 % Normal 0-3.0 Nucleated Red Blood Cell % 0.0 % Normal 0-0 Neutrophils # 3.8 10 Normal 1.5-8.5 Lymph # 0.4 10 Low 1.5-5.0 [place] # 0.4 10 Normal 0.0-0.8 Eos # 0.0 10 Normal 0.0-0.5 Baso # 0.0 10 Normal 0.0-0.2 Cbcadp 12/19/2020 [facility] [address] [facility] [place] [address] [phone] WBC. 5.30 x10E3/uL 4.2-12.0 RBC 3.94 x10E6/uL Low 4.4-6.0 HGB 12.1 g/dL Low 13.8-18.0 HCT 38.7 % Low 39-52 MCV 98.0 fL 80-98 MCH 30.7 pg 27-33 MCHC 31.3 g/dL Low 32-36 RDW 13.7 % 11.2-15.2 PLT 162 x10E3/uL 135-420 MPV 9.0 fL 7.0-12.3 % Indra 73.6 % 41.0-80.0 %Lym 19.7 % 10.0-45.2 %[place] 4.2 % 2.0-13.0 %Eos 2.1 % 0.0-8.0 %Baso 0.4 % 0.0-3.0 Neut 3.9 x10E3/uL 2.0-8.1 Lymp 1.0 x10E3/uL 0.6-3.1 [place] 0.2 x10E3/uL 0.0-1.0 Eos 0.1 x10E3/uL 0.0-0.6 Baso 0.0 x10E3/uL 0.0-0.2 Iron Panel Office 12/19/2020 [facility] [address] [place] [address] [phone] Iron 77 g/dL 50-175 27 Tibc 379 g/dL 250-450 28 Ferritin 19 ng/ml Low 22.0-322.0 29 % Saturation 20 % 13-48 30 Laboratory test finding 12/19/2020 [facility] [address] [place] [address] [phone] B12 5251 pg/mL High 211-911 31 CMP-Male 12/19/2020 [facility] [address] [place] [address] [phone] Glucose 110 mg/dL High 74-106 32 BUN [...] 1.9-3.7 Calcium 9.0 mg/dL 8.9-10.5 LPPM 12/19/2020 [facility] [address] [place] [address] [phone] Cholesterol 146 mg/dL 0-200 Triglycerides 84 mg/dL 0-249 37 HDL 59 mg/dL 40-60 LDL-Calculated 70 mg/dL 0-130 VLDL 17 mg/dL 0-28 Cardiac Risk 2.47 Ratio Low 3.7-5.3 Laboratory test finding 12/19/2020 [facility] [address] [place] [address] [phone] Venipuncture DONE - 38 1 Results Confirmed on Dilutio n. 2 [place] Diabetes Associatio n (ADA) Recommended Range is 65-99 mg/dL 3 Results Confirmed by Repeat Analysis. Tried to call no answer 5446 lori Consistent with previous results Labprint and transmitted 9848 lori 05/30/2021 4 Normal Kidney Function or Mi ld Disease GFR >59 mL/min/1.73m2 Chronic Kidney Disease GFR 15-59 mL/min/1.73m2 Renal Failure GFR <15 mL/min/1.73m2 5 Effective 02/23/2017: [employer] has indicated interference with the drugs sulfasalazine [...] Little GFR Left ESRD GFR <15 on REPAIRER HELPER 12 [place] Diabetes Associatio n (ADA) Recommended Range is [...] Failure GFR <15 mL/min/1.73m2 17 Effective 02/23/2017: [employer] has indicated interference with the drugs sulfasalazine [...] pathogens. DISCLAIMER: Testing was performed using the [employer] SARS-CoV-2 test. This test was developed and its performance characteristics determined by [employer]. This test has not been FDA cleared [...] Little GFR Left ESRD GFR <15 on REPAIRER HELPER 25 DIAGNOSIS CRITERIA MMB ng/ml Relative Index (RI) NON-AMI < or = 5 N/A WALTON ZONE > 5 < or = 4 AMI > 5 > 4 26 Troponin I Reference Interva l for [employer] LOCI: 99th Percentile= 0.00-0.045 ng/ml Risk Stratification: [...] 31 Results Confirmed on Dilutio n. 32 [place] Diabetes Associatio n (ADA) Recommended Range is 65-99 mg/dL 33 Results Confirmed by Repeat Analysis. Results faxed at 437 12/19/20 kk Called to Lauren at 437 12/19/20 kk 34 Normal Kidney Function or Mi ld Disease GFR >59 mL/min/1.73m2 Chronic Kidney Disease GFR 15-59 mL/min/1.73m2 Renal Failure GFR <15 mL/min/1.73m2 35 Effective 02/23/2017: [employer] has indicated interference with the drugs sulfasalazine [...] fasting Procedures Date Code Description Status 04/19/2021 95479 TCM-Mod Completed 12/19/2020 60869 Office/Outpatient Established Mo d MDM 30-39 Min [...] 12:20 pm - Frantz Woody MD at [facility] Primary Care AT [place] 05/30/2021 - Frantz Woody MD* A04.72 Enterocolitis [...]
--- OUTSIDE RECORDS SUMMARY | 2021-06-07 11:27 | CCD ---
Author Author [facility] Organization [facility] Address Unknown Phone Unavailable Care Team Providers Care Town Planner Name Role Phone ArlinehenryOh Unavailable PROBLEMS No Information ALLERGIES No Known Allergies ENCOUNTERS from 1930 to 2021-06-01 Encounter Location Date Provider Diagnosis [facility] [address] [phone] [place] [address] May, Oh Santiago IMMUNIZATIONS No Information SOCIAL HISTORY Tobacco Use: Social History Observation Description Date Details (start date - stop date) Former Smoker Sex Assigned At : Social History Observation Description Sex Assigned At Unknown Language: Question Answer Notes Languages spoken: Vietnamese Judaism: Question Answer Notes Judaism No alevism beliefs that would impact health care. Alcohol Screening: Question Answer Notes Did you have a drink containing alcohol in the past year? No Points 0 Interpretation Negative Tobacco Use: Question Answer Notes Are you a: former smoker quit 1983 REASON FOR REFERRAL No Information VITAL SIGNS No information MEDICATIONS Medication SIG (Take, Route, Frequency, Duration) [...] 1000 MCG as directed Orally Active PROCEDURES No Information RESULTS No Results REASON FOR VISIT No Information MEDICAL (GENERAL) HISTORY Type Description Date Medical [...] No Information FUNCTIONAL STATUS No Information ASSESSMENTS No Information PLAN OF TREATMENT Next Appt Details Provider Name:Oh Santiago, 2020-11-1 7 09:15:00 AM, [address], , [place], [address], Insurance Providers Payer Name Payer Address Payer Phone Insured Name Patient Relati onship to Insured Coverage Start Date Coverage End Date [facility] RET RR RETIRED RAILROAD [address] [address] [facility] [id number] LILIAN GARNER self MEDICARE RR [address] [address] [facility] [id number] LILIAN GARNER self
--- OUTSIDE RECORDS SUMMARY | 2021-06-07 11:27 | CCD | Continuity of Care Document ---
Author Author Jose Ramon WOODY MD Organization Unknown Address [address] [place] [address], [address] [place] [address] Phone [phone] Care Team Providers Care Women Nurse Name Role Phone Frantz Woody MD AUTM [phone] Arnaldo Flores MD AUTM [facility] Dmitriy Umaña MD AUTM [phone] [facility] AUTM [phone] [facility] Service - Public Health, Stat e or Local AUTM [phone] Problems Active Problems Provider Date Vertigo Onset: [...] CPT Code Status Date Vaccine Lot # [id number] Given 05/30/2021 Influenza High Dose 67>,Flua d Quadrivalent [id number] 12317 Given 11/28/2020 Moderna Covid-19 Sars-Cov-2, mRNA, LNP-S, PF, 100 mcg/ 0.5 mL 29950 Given 10/28/2020 Moderna Covid-19 Sars-Cov-2, mRNA, LNP-S, PF, 100 mcg/ 0.5 mL 81782 Given 07/17/2019 Influenza Vaccin e, High Dose > 65 Years Old (Includes Medicare) 65334 Given 07/29/2018 Pneumococcal (Pneumovax 23) [id number] 27993 Given 07/09/2018 Influenza Vaccin e, High Dose > 65 Years Old (Includes Medicare) 55473 Given 07/10/2017 Influenza Vaccin e, High Dose > 65 Years Old (Includes Medicare) [id number] 86419 Given 03/14/2016 Prevnar 13 [id number] 61977 Given 07/06/2015 Influenza Vaccin e, High Dose > 65 Years Old (Includes Medicare) 19456 Given 06/06/2011 Influenza Virus Vaccine, Spl it 3 [place] [address] Given 05/23/2010 Influenza Virus Vaccine, Spl [place] [address] Given 05/26/2008 Influenza Virus Vaccine, Spl [place] [address] Given 06/09/2007 Influenza Virus Vaccine, Spl [place] [address] Given 04/23/2007 Zostavax 52774 Given 06/07/2006 Influenza Virus Vaccine, Spl it [address] [place] [address] Given 09/24/2003 Tdap Vital Signs Date Vital [...] H/L Range Note Laboratory test finding 05/30/[address] [facility] [address] [place] [address] [phone] B12 8765 pg/mL High 211-911 1 CMP-Male 05/30/[address] [facility] [address] [place] [address] [phone] Glucose 102 mg/dL 74-106 2 BUN 78 [...] Calcium 8.0 mg/dL Low 8.9-10.5 LPPM 05/30/[address] [facility] [address] [place] [address] [phone] Cholesterol 154 mg/dL 0-200 Triglycerides 58 mg/dL 0-249 7 HDL 68 mg/dL High 40-60 LDL-Calculated 74 mg/dL 0-130 VLDL 12 mg/dL 0-28 Cardiac Risk 2.26 Ratio Low 3.7-5.3 Laboratory test finding 05/30/[address] [facility] [address] [place] [address] [phone] HGB A1c <pending> TSH3 9.514 mIU/ml High 0.350-5.500 8 Uric Acid 10.7 mg/dL High 2.6-7.2 9 Vitamin D, 25(Oh). 23.68 ng/ml Low 30-100 10 CBC With Differential 05/24/[address] [id number] [phone] White Blood Count 7.0 10 Normal 4.0-10.0 [...] 36.0-66.0 Lymph % 7.1 % Low 24.0-44.0 [place] % 4.7 % Normal 2.0-8.0 Eos % 0.7 % Normal 0.0-3.0 Baso % 0.3 % Normal 0.0-1.0 Immature Granulocyte % 0.6 % Normal 0-3.0 Nucleated Red Blood Cell % 0.0 % Normal 0-0 Neutrophils # 6.1 10 Normal 1.5-8.5 Lymph # 0.5 10 Low 1.5-5.0 [place] # 0.3 10 Normal 0.0-0.8 Eos # 0.1 10 Normal 0.0-0.5 Baso # 0.0 10 Normal 0.0-0.2 Comprehensive Metabolic Profil 05/24/[address] 2890168 [phone] Glucose, Fasting 89 mg/dL Normal 70-100 Blood [...] 3.2-5.2 Albumin/Globulin Ratio 0.6 Normal CMP-Male 04/19/[address] [facility] [address] [place], [place] 3[address]279 [phone] Glucose 94 mg/dL 74-106 12 BUN 85 [...] Calcium 7.8 mg/dL Low 8.9-10.5 Cbcadp 04/19/[address] [facility] [address] [place] [address] [phone] WBC. 8.30 x10E3/uL 4.2-12.0 RBC 3.61 x10E6/uL Low 4.4-6.0 19 HGB 11.0 g/dL Low 13.8-18.0 HCT 34.8 % Low 39-52 MCV 96.4 fL 80-98 MCH 30.6 pg 27-33 MCHC 31.7 g/dL Low 32-36 RDW 14.8 % 11.2-15.2 PLT 247 x10E3/uL 135-420 MPV 8.1 fL 7.0-12.3 % Indra 93.0 % High 41.0-80.0 %Lym 4.6 % Low 10.0-45.2 %[place] 2.1 % 2.0-13.0 %Eos 0.1 % 0.0-8.0 %Baso 0.1 % 0.0-3.0 Neut 7.7 x10E3/uL 2.0-8.1 Lymp 0.4 x10E3/uL Low 0.6-3.1 [place] 0.2 x10E3/uL 0.0-1.0 Eos 0.0 x10E3/uL 0.0-0.6 Baso 0.0 x10E3/uL 0.0-0.2 Laboratory test finding 04/19/[address] [facility] [address] [place] [address] [phone] BNP 1015.8 pg/mL High 0-100 Manual Diff 04/19/[address] [facility] [address] [place] [address] [phone] Segs 89 % High 40-60 Band 0 % Low 3-5 Lymph 8 % Low 21-45 Monos 2 % Low 6-12 Eosinophils 0 % Low 1-5 Basophils 0 % Low 1-3 Atyp Lymph 1 % - Laboratory test finding 04/19/[address] [facility] [address] [place] [address] [phone] Venipuncture DONE - Influenza A/B RSV Covid Amp 04/04/[address] [address] [phone] Influenza A Amplification NEGATIVE Normal Negati ve 20 Influenza B Amplification NEGATIVE Normal Negative 21 RSV Amplification NEGATIVE Normal Negative 22 Sars Covid-19 Amplification NEGATIVE Normal Negative 23 Laboratory test finding 04/04/[address] [address] [phone] Magnesium Level 1.5 mg/dL Low 1.8-2.4 NT-Pro BNP 8105 pg/mL High <450 Thyroid Stimulating Hormone 3.550 uIU/ML Normal 0.358-3.740 Basic Metabolic Profile 04/04/[address] [address] [phone] Glucose, Fasting 95 mg/dL Normal 70-100 Blood [...] 8.3 mg/dL Low 8.8-10.2 Liver Profile 04/04/2021 [facility] nter [address] [place] [address] [phone] Ast/Sgot 10 U/L Normal 7-37 Alt/SGPT 18 U/L Normal 12-78 Alkaline Phosphatase 100 U/L Normal 45-117 Bilirubin,Total 0.3 mg/dL Normal 0.2-1.0 Bilirubin,Direct 0.1 mg/dL Normal 0.0-0.2 Total Protein 6.0 GM/DL Low 6.4-8.2 Albumin 2.8 GM/DL Low 3.2-5.2 Albumin/Globulin Ratio 0.9 Normal Cardiac Marker Panel 04/04/2021 [facility] enter [address] [place] [address] [phone] CPK Creatine Phosphokinase 95 U/L Normal 39-30 8 CK-MB Value Mass 3.3 NG/ML Normal <3.6 MB/CK Relative Index 3.47 Normal < Or =4 25 Troponin I 0.03 NG/ML Normal < 0.10 26 CBC With Differential 04/04/2021 [facility] [address] [place] [address] [phone] White Blood Count 4.5 10 Normal 4.0-10.0 [...] 36.0-66.0 Lymph % 9.0 % Low 24.0-44.0 [place] % 7.9 % Normal 2.0-8.0 Eos % 0.0 % Normal 0.0-3.0 Baso % 0.0 % Normal 0.0-1.0 Immature Granulocyte % 0.2 % Normal 0-3.0 Nucleated Red Blood Cell % 0.0 % Normal 0-0 Neutrophils # 3.8 10 Normal 1.5-8.5 Lymph # 0.4 10 Low 1.5-5.0 [place] # 0.4 10 Normal 0.0-0.8 Eos # 0.0 10 Normal 0.0-0.5 Baso # 0.0 10 Normal 0.0-0.2 Cbcadp 12/19/[address] [facility] [address] [facility] [place] [address] [phone] WBC. 5.30 x10E3/uL 4.2-12.0 RBC 3.94 x10E6/uL Low 4.4-6.0 HGB 12.1 g/dL Low 13.8-18.0 HCT 38.7 % Low 39-52 MCV 98.0 fL 80-98 MCH 30.7 pg 27-33 MCHC 31.3 g/dL Low 32-36 RDW 13.7 % 11.2-15.2 PLT 162 x10E3/uL 135-420 MPV 9.0 fL 7.0-12.3 % Indra 73.6 % 41.0-80.0 %Lym 19.7 % 10.0-45.2 %[place] 4.2 % 2.0-13.0 %Eos 2.1 % 0.0-8.0 %Baso 0.4 % 0.0-3.0 Neut 3.9 x10E3/uL 2.0-8.1 Lymp 1.0 x10E3/uL 0.6-3.1 [place] 0.2 x10E3/uL 0.0-1.0 Eos 0.1 x10E3/uL 0.0-0.6 Baso 0.0 x10E3/uL 0.0-0.2 Iron Panel Office 12/19/[address] [facility] [address] [place] [address] [phone] Iron 77 g/dL 50-175 27 Tibc 379 g/dL 250-450 28 Ferritin 19 ng/ml Low 22.0-322.0 29 % Saturation 20 % 13-48 30 Laboratory test finding 12/19/[address] [facility] [address] [place] [address] [phone] B12 5251 pg/mL High 211-911 31 CMP-Male 12/19/[address] [facility] [address] [place] [address] [phone] Glucose 110 mg/dL High 74-106 32 BUN [...] 1.9-3.7 Calcium 9.0 mg/dL 8.9-10.5 LPPM 12/19/[address] [facility] [address] [place] [address] [phone] Cholesterol 146 mg/dL 0-200 Triglycerides 84 mg/dL 0-249 37 HDL 59 mg/dL 40-60 LDL-Calculated 70 mg/dL 0-130 VLDL 17 mg/dL 0-28 Cardiac Risk 2.47 Ratio Low 3.7-5.3 Laboratory test finding 12/19/[address] [facility] [address] [place] [address] [phone] Venipuncture DONE - 38 1 Results Confirmed on Dilutio n. 2 [place] Diabetes Associatio n (ADA) Recommended Range is 65-99 mg/dL 3 Results Confirmed by Repeat Analysis. Tried to call no answer 7104 lori Consistent with previous results Labprint and transmitted 0332 lori 05/30/2021 4 Normal Kidney Function or Mi ld Disease GFR >59 mL/min/1.73m2 Chronic Kidney Disease GFR 15-59 mL/min/1.73m2 Renal Failure GFR <15 mL/min/1.73m2 5 Effective 02/23/2017: [employer] has indicated interference with the drugs sulfasalazine [...] Little GFR Left ESRD GFR <15 on CHIEF ENGINEER'S HELPER 12 [place] Diabetes Associatio n (ADA) Recommended Range is [...] Failure GFR <15 mL/min/1.73m2 17 Effective 02/23/2017: [employer] has indicated interference with the drugs sulfasalazine [...] pathogens. DISCLAIMER: Testing was performed using the [employer] SARS-CoV-2 test. This test was developed and its performance characteristics determined by [employer]. This test has not been FDA cleared [...] Little GFR Left ESRD GFR <15 on CHIEF ENGINEER'S HELPER 25 DIAGNOSIS CRITERIA MMB ng/ml Relative Index (RI) NON-AMI < or = 5 N/A WALTON ZONE > 5 < or = 4 AMI > 5 > 4 26 Troponin I Reference Interva l for [employer] LOCI: 99th Percentile= 0.00-0.045 ng/ml Risk Stratification: [...] 31 Results Confirmed on Dilutio n. 32 [place] Diabetes Associatio n (ADA) Recommended Range is 65-99 mg/dL 33 Results Confirmed by Repeat Analysis. Results faxed at 437 12/19/20 kk Called to Lauren at 437 12/19/20 kk 34 Normal Kidney Function or Mi ld Disease GFR >59 mL/min/1.73m2 Chronic Kidney Disease GFR 15-59 mL/min/1.73m2 Renal Failure GFR <15 mL/min/1.73m2 35 Effective 02/23/2017: [employer] has indicated interference with the drugs sulfasalazine [...] fasting Procedures Date Code Description Status 04/19/2021 06540 TCM-Mod Completed 12/19/2020 66904 Office/Outpatient Established Mo d MDM 30-39 Min [...] Woody MD 12/19/2020 E78.5 Hyperlipidemia, unspecified Frantz Wooyd MD 12/19/2020 D51.9 Vitamin B12 deficiency anemia, [...] 12:20 pm - Frantz Woody MD at [facility] Primary Care AT [place] 05/30/2021 - Frantz Woody MD* A04.72 Enterocolitis [...]
--- OUTSIDE RECORDS SUMMARY | 2021-06-07 11:28 | CCD | Continuity of Care Document ---
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) 10-Apr-2021 Status: Active Medications Name Dates Details Torsemide 100 MG Frantz Woody Active Lokelma 5 GM Mix in 1/3 cup water and take once a week on Sundays Frantz Woody* Start : 16-Apr-2021 Active Metoprolol Succinate ER 25 MG Frantz Woody* Start : 16-Apr-2021 Active Calcitriol 0.25 MCG Take Saturday, Saturday, Saturday Frantz Woody* Start : 16-Apr-2021 Active Aspirin 81 81 MG Frantz Woody* Start : 16-Apr-2021 Active raNITIdine HCl 150 MG Frantz Woody* Start : 16-Apr-2021 Active Dificid 200 MG Frantz Woody* Start : 16-Apr-2021 End : 17-Apr-2021 Inactive Allergies and Adverse Reactions Name Dates Details Ramipril (Allergy) Onset: 16-Apr-2021 Status: Active Results Date Description Value Details No Known Results Plan of Care Name Dates Details Instructions Diet:Regular Diet Ins truction Type: Nutrition education Payers * Medicare - [facility] * [facility]
--- OUTSIDE RECORDS SUMMARY | 2021-06-07 11:28 | CCD | Continuity of Care Document ---
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) 10-Apr-2021 Status: Active Personal history of nicotine dependence (Z87.891) 16-Apr-2021 Status: Active Personal history of transient ischemic attack (TIA), 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) 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) 16-Apr-2021 Status: [...] Status: Active Dehydration (E86.0) 16-Apr-2021 Status: Active Medications Name Dates Details Torsemide 100 MG Frantz Woody Inactive Lokelma 5 GM Mix in 1/3 cup [...] Start : 16-Apr-2021 End : 17-Apr-2021 Inactive Torsemide 100 MG Frantz Woody* Start : 16-Apr-2021 Active Allergies and Adverse Reactions Name Dates Details Ramipril (Allergy) Onset: 16-Apr-2021 Status: Active Results Date Description Value Details No Known Results Plan of Care Name Dates Details Instructions Diet:Regular Diet Ins truction Type: Nutrition education Payers * Medicare - [facility] * [facility]
--- OUTSIDE RECORDS SUMMARY | 2021-06-07 11:28 | CCD | Continuity of Care Document ---
Author Author Jose Ramon May Automated Organization Unknown Address Unknown Phone Unavailable Care Team Providers Care Teacher Preschool Name Role Phone Frantz Woody Unavailable Unavailable Unavailable [facility] Unavailable Unavailable Unavailable Magjorge Angella Unavailable IbanezShyann Unavailable Tanya Valadez Unavailable [...] Type: Nutrition education Payers * Medicare - [facility] * [facility]
--- OUTSIDE RECORDS SUMMARY | 2021-06-07 11:28 | CCD | Continuity of Care Document ---
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
--- OUTSIDE RECORDS SUMMARY | 2021-06-07 11:28 | CCD | Continuity of Care Document ---
Author Author Jose Ramon WOODY MD Organization Unknown Address [address] [place] [address], [address] [place] [address] Phone [phone] Care Team Providers Care Outside Sales Consultant Name Role Phone Frantz Woody MD AUTM [phone] Arnaldo Flores [facility] Dmitriy Umaña MD AUTM [phone] [facility] AUT [phone] Problems Active Problems Provider Date Vertigo Onset: [...] regularly Allergies, Adverse Reactions, Alerts Active Allergies Criticality Reaction | Severity Comments Date Ramipril Unable to assess criticality Hyperkalemia made ptoassi um level drop 05/23/2010 Medications Active Medications SIG Qnty Indications Ordering Provide r Date Cyanocobalamin 1000mcg/ML Solution Inject 1ML Intramuscularly Every [...] day directed. 200units Frantz Woody MD 013 Torsemide 100mg Tablets 1/2 tablet by mouth daily Unknown Metoprolol Succinate ER 25mg Tablets ER 24HR 1 by mouth every day Unknown /0 000 Medications Administered in Office Medication SIG Qnty [...] CPT Code Status Date Vaccine Lot # [id number] Given 11/28/2020 Moderna Covid-19 Sars-Cov-2, mRNA, LNP-S, PF, 100 mcg/ 0.5 mL 63474 Given 10/28/2020 Moderna Covid-19 Sars-Cov-2, mRNA, LNP-S, PF, 100 mcg/ 0.5 mL 58945 Given 07/17/2019 Influenza Vaccin e, High Dose > 65 Years Old (Includes Medicare) 41030 Given 07/29/2018 Pneumococcal (Pneumovax 23) [id number] 50051 Given 07/09/2018 Influenza Vaccin e, High Dose > 65 Years Old (Includes Medicare) 63363 Given 07/10/2017 Influenza Vaccin e, High Dose > 65 Years Old (Includes Medicare) [id number] 32544 Given 03/14/2016 Prevnar 13 [id number] 27639 Given 07/06/2015 Influenza Vaccin e, High Dose > 65 Years Old (Includes Medicare) 02312 Given 06/06/2011 Influenza Virus Vaccine, Spl it 3 [place] [address] Given 05/23/2010 Influenza Virus Vaccine, [place] 3 [place] [address] Given 05/26/2008 Influenza Virus Vaccine, Spl [place] 3 [place] [address] Given 06/09/2007 Influenza Virus Vaccine, Spl it 3 [place] [address] Given 04/23/2007 Zostavax 65659 Given 06/07/2006 Influenza Virus Vaccine, Spl it 3 Yrs AB Vital Signs Date Vital Result Comment 04/19/2021 3:45pm Height 68.00 inches 5'8" BP Systolic 120 mmHg BP Diastolic 78 mmHg Heart Rate 78 /min Body Temperature 98.6 F Body Temperature 37.0 C O2 % BldC Oximetry 97 % 12/19/2020 1:17pm Height 68.00 inches 5'8" Weight 154.50 lb BMI (Body Mass Index) 23.5 kg/m2 BP Systolic 130 mmHg BP Diastolic 70 mmHg Heart Rate 66 /min Body Temperature 97.8 F Body Temperature 36.6 C O2 % BldC Oximetry 98 % Results Test Acquired Date Facility Test Result H/L Range Note Cbcadp 04/19/2021 [facility] [address] [place] [address] [phone] WBC. 8.30 x10E3/uL 4.2-12.0 RBC 3.61 x10E6/uL Low 4.4-6.0 1 HGB 11.0 g/dL Low 13.8-18.0 HCT 34.8 % Low 39-52 MCV 96.4 fL 80-98 MCH 30.6 pg 27-33 MCHC 31.7 g/dL Low 32-36 RDW 14.8 % 11.2-15.2 PLT 247 x10E3/uL 135-420 MPV 8.1 fL 7.0-12.3 % Indra 93.0 % High 41.0-80.0 %Lym 4.6 % Low 10.0-45.2 %[place] 2.1 % 2.0-13.0 %Eos 0.1 % 0.0-8.0 %Baso 0.1 % 0.0-3.0 Neut 7.7 x10E3/uL 2.0-8.1 Lymp 0.4 x10E3/uL Low 0.6-3.1 [place] 0.2 x10E3/uL 0.0-1.0 Eos 0.0 x10E3/uL 0.0-0.6 Baso 0.0 x10E3/uL 0.0-0.2 Laboratory test finding 04/19/2021 [facility] [address] [place] [address] [phone] BNP 1015.8 pg/mL High 0-100 Manual Diff 04/19/2021 [facility] [address] [place] [address] [phone] Segs 89 % High 40-60 Band 0 % Low 3-5 Lymph 8 % Low 21-45 Monos 2 % Low 6-12 Eosinophils 0 % Low 1-5 Basophils 0 % Low 1-3 Atyp Lymph 1 % - Laboratory test finding 04/19/2021 [facility] [address] [place] [address] [phone] Venipuncture DONE - CMP-Male 04/19/2021 [facility] [address] [place] [address] [phone] Glucose 94 mg/dL 74-106 2 BUN 85 mg/dL 6-20 3 Creatinine 5.6 mg/dL 0.5-1.3 4 Sodium 132 mmol/L Low 136-145 5 Potassium 3.6 mmol/L 3.5-5.3 Chloride 96 mmol/L Low 98-107 Co2 23 mEq/L 20-31 Anion Gap 13 mmol/L 7-16 eGFR-male 10 mL/m/1.73m - eGFR-Aa male 12 mL/m/1.73m - 6 Alk. Phos. 74 U/L 46-116 Alt 19 U/L 4-36 7 Ast 26 U/L 8-33 Total Bilirubin 0.3 mg/dL 0.3-1.2 Total Protein 5.4 g/dL Low 6.4-8.3 8 Albumin 3.0 g/dL Low 3.6-5.1 A/G Ratio 1.3 Ratio 1.0-2.0 Globulin 2.4 g/dL 1.9-3.7 Calcium 7.8 mg/dL Low 8.9-10.5 Laboratory test finding 04/04/2021 [facility] [address] [place] [address] [phone] Magnesium Level 1.5 mg/dL Low 1.8-2.4 NT-Pro BNP 8105 pg/mL High <450 Thyroid Stimulating Hormone 3.550 uIU/ML Normal 0.358-3.740 Basic Metabolic Profile 04/04/2021 [facility] [address] [place] [address] [phone] Glucose, Fasting 95 mg/dL Normal 70-100 Blood Urea Nitrogen 130 mg/dL High 7-18 Creatinine For GFR 8.50 mg/dL Critical high 0.70-1.30 Glomerular Filtration Rate 6.4 Low >35 9 Sodium Level 135 mEq/L Low 136-145 Potassium Serum 4.5 mEq/L Normal 3.5-5.1 Chloride Level 105 mEq/L Normal 98-107 Carbon Dioxide Level 20 mEq/L Low 21-32 Anion Gap 10 mEq/L Normal 8-16 Calcium Level 8.3 mg/dL Low 8.8-10.2 Liver Profile 04/04/2021 [facility] [address] [place] [address] [phone] Ast/Sgot 10 U/L Normal 7-37 Alt/SGPT 18 U/L Normal 12-78 Alkaline Phosphatase 100 U/L Normal 45-117 Bilirubin,Total 0.3 mg/dL Normal 0.2-1.0 Bilirubin,Direct 0.1 mg/dL Normal 0.0-0.2 Total Protein 6.0 GM/DL Low 6.4-8.2 Albumin 2.8 GM/DL Low 3.2-5.2 Albumin/Globulin Ratio 0.9 Normal Cardiac Marker Panel 04/04/2021 [facility] enter [address] [place] [address] [phone] CPK Creatine Phosphokinase 95 U/L Normal 39-30 8 CK-MB Value Mass 3.3 NG/ML Normal <3.6 MB/CK Relative Index 3.47 Normal < Or =4 10 Troponin I 0.03 NG/ML Normal < 0.10 11 CBC With Differential 04/04/[address] [address] [phone] White Blood Count 4.5 10 Normal 4.0-10.0 [...] 36.0-66.0 Lymph % 9.0 % Low 24.0-44.0 [place] % 7.9 % Normal 2.0-8.0 Eos % 0.0 % Normal 0.0-3.0 Baso % 0.0 % Normal 0.0-1.0 Immature Granulocyte % 0.2 % Normal 0-3.0 Nucleated Red Blood Cell % 0.0 % Normal 0-0 Neutrophils # 3.8 10 Normal 1.5-8.5 Lymph # 0.4 10 Low 1.5-5.0 [place] # 0.4 10 Normal 0.0-0.8 Eos # 0.0 10 Normal 0.0-0.5 Baso # 0.0 10 Normal 0.0-0.2 Influenza A/B RSV Covid Amp 04/04/2021 [facility] [address] [place] [address] [phone] Influenza A Amplification NEGATIVE Normal Negati ve 12 Influenza B Amplification NEGATIVE Normal Negative 13 RSV Amplification NEGATIVE Normal Negative 14 Sars Covid-19 Amplification NEGATIVE Normal Negative 15 Cbcadp 12/19/2020 [facility] [address] [place] [address] [phone] WBC. 5.30 x10E3/uL 4.2-12.0 RBC 3.94 x10E6/uL Low 4.4-6.0 HGB 12.1 g/dL Low 13.8-18.0 HCT 38.7 % Low 39-52 MCV 98.0 fL 80-98 MCH 30.7 pg 27-33 MCHC 31.3 g/dL Low 32-36 RDW 13.7 % 11.2-15.2 PLT 162 x10E3/uL 135-420 MPV 9.0 fL 7.0-12.3 % Indra 73.6 % 41.0-80.0 %Lym 19.7 % 10.0-45.2 %[place] 4.2 % 2.0-13.0 %Eos 2.1 % 0.0-8.0 %Baso 0.4 % 0.0-3.0 Neut 3.9 x10E3/uL 2.0-8.1 Lymp 1.0 x10E3/uL 0.6-3.1 [place] 0.2 x10E3/uL 0.0-1.0 Eos 0.1 x10E3/uL 0.0-0.6 Baso 0.0 x10E3/uL 0.0-0.2 Iron Panel Office 12/19/2020 [facility] [address] [place], [place] [address] [phone] Iron 77 g/dL 50-175 16 Tibc 379 g/dL 250-450 17 Ferritin 19 ng/ml Low 22.0-322.0 18 % Saturation 20 % 13-48 19 Laboratory test finding 12/19/2020 [facility] [address] [place], [place] [address] [phone] B12 5251 pg/mL High 211-911 20 CMP-Male 12/19/2020 [facility] [address] [place], [place] [address] [phone] Glucose 110 mg/dL High 74-106 21 BUN 86 mg/dL 6-20 22 Creatinine 3.4 mg/dL High 0.5-1.3 Sodium 138 mmol/L 136-145 Potassium 4.8 mmol/L 3.5-5.3 Chloride 103 mmol/L 98-107 Co2 26 mEq/L 20-31 Anion Gap 9 mmol/L 7-16 eGFR-male 17 mL/m/1.73m - eGFR-Aa male 21 mL/m/1.73m - 23 Alk. Phos. 81 U/L 46-116 Alt 18 U/L 4-36 24 Ast 27 U/L 8-33 Total Bilirubin 0.4 mg/dL 0.3-1.2 Total Protein 6.6 g/dL 6.4-8.3 25 Albumin 4.5 g/dL 3.6-5.1 A/G Ratio 2.1 Ratio High 1.0-2.0 Globulin 2.1 g/dL 1.9-3.7 Calcium 9.0 mg/dL 8.9-10.5 LPPM 12/19/2020 [facility] [address] [place] [address] [phone] Cholesterol 146 mg/dL 0-200 Triglycerides 84 mg/dL 0-249 26 HDL 59 mg/dL 40-60 LDL-Calculated 70 mg/dL 0-130 VLDL 17 mg/dL 0-28 Cardiac Risk 2.47 Ratio Low 3.7-5.3 Laboratory test finding 12/19/2020 [facility] [address] [place] [address] [phone] Venipuncture DONE - 27 Complete Blood Count 10/30/[address] [address] [phone] White Blood Count 3.4 10 Low 4.0-10.0 Red Blood Count 2.97 10 Low 4.30-6.10 Hemoglobin 9.2 g/dL Low 13.5-17.5 Hematocrit 30.4 % Low 42.0-52.0 Mean Corpuscular Volume 102.4 fl High 80.0-96.0 Mean Corpuscular Hemoglobin 31.0 pg Normal 27.0-33.0 Mean Corpuscular HGB Conc 30.3 g/dL Low 32.0-36.5 Red Cell Distribution Width 13.7 % Normal 11.5-14.5 Platelet Count, Automated 163 10 Normal 150-450 Nucleated Red Blood Cell % 0.0 % Normal 0-0 Basic Metabolic Profile 10/30/2020 [facility] [address] [place] [address] [phone] Glucose, Fasting 91 mg/dL Normal 70-100 Blood Urea Nitrogen 71 mg/dL High 7-18 Creatinine For GFR 3.47 mg/dL High 0.70-1.30 Glomerular Filtration Rate 17.9 Low >35 2 8 Sodium Level 140 mEq/L Normal 136-145 Potassium Serum 5.3 mEq/L High 3.5-5.1 Chloride Level 107 mEq/L Normal 98-107 Carbon Dioxide Level 28 mEq/L Normal 21-32 Anion Gap 5 mEq/L Low 8-16 Calcium Level 8.5 mg/dL Low 8.8-10.2 Laboratory test finding 10/30/2020 [facility] [address] [place] [address] [phone] Thyroid Stimulating Hormone 8.360 uIU/ML High 0. 358-3.740 Free T4 By Dialysis Direct 0.90 ng/dL Normal . 2 9 1 1+ Ovalocytes 2+ Anisocytosis 1+ Hypochromasia 2 [place] Diabetes Associ[employer] n (ADA) Recommended Range is 65-99 mg/dL 3 Results Confirmed by Repeat Analysis. Results faxed at 1053 04/20/21 kk Called to Lauren at 1053 04/20/21 kk 4 Results Confirmed by Repeat Analysis. Results faxed at 1053 04/20/21 kk Called to Lauren at 1053 04/20/21 kk 5 Results Confirmed by Repeat Analysis. 6 Normal Kidney Function or Mi ld Disease GFR >59 mL/min/1.73m2 Chronic Kidney Disease GFR 15-59 mL/min/1.73m2 Renal Failure GFR <15 mL/min/1.73m2 7 Effective 02/23/2017: [employer] has indicated interference with the drugs sulfasalazine and sulfapyridine. They suggest collection should occur prior to drug administration due to falsely depressed results. 8 Results may reflect a potent ial interference in Total Protein results in patients receiving dextran as blood volume expanders. 9 Units are mL/min/1.73 m2 Chronic Kidney Disease Staging per NKF: Stage I & II GFR >=60 Normal to Mildly Decreased Stage III GFR 30-59 Moderately Decreased Stage IV GFR 15-29 Severely Decreased Stage V GFR <15 Very Little GFR Left ESRD GFR <15 on SEASONAL RETAIL MERCHANDISER 10 DIAGNOSIS CRITERIA MMB ng/ml Relative Index (RI) NON-AMI < or = 5 N/A WALTON ZONE > 5 < or = 4 AMI > 5 > 4 11 Troponin I Reference Interva l for Siemens Egr Renovation LOCI: 99th Percentile= 0.00-0.045 ng/ml Risk Stratification: <= 0.10 ng/ml Decreased Risk for Adverse Clinical Events. 0.10-1.50 ng/ml Increased Risk for Adv erse Clinical Events. Evaluation of additional criterion and/or repeat testing in 2-6 hours is suggested to rule out myocardial damage. >= 1.50 ng/ml Indicative of Myocardial Injury. 12 Negative results do not prec lude influenza or RSV virus infection and should not be used as the sole basis for treatment or other patient management decisions. 13 Negative results do not prec lude influenza or RSV virus infection and should not be used as the sole basis for treatment or other patient management decisions. 14 Negative results do not prec lude influenza or RSV virus infection and should not be used as the sole basis for treatment or other patient management decisions. 15 A false negative result may occur if [...] pathogens. DISCLAIMER: Testing was performed using the [employer] SARS-CoV-2 test. This test was developed and its performance characteristics determined by [employer]. This test has not been FDA cleared [...] the authorization is terminated or revoked sooner. 16 not fasting 17 not fasting 18 not fasting 19 not fasting 20 Results Confirmed on Dilutio n. 21 [place] Diabetes Associ[employer] n (ADA) Recommended Range is 65-99 mg/dL 22 Results Confirmed by Repeat Analysis. Results faxed at 437 12/19/20 kk Called to Lauren at 437 12/19/20 kk 23 Normal Kidney Function or Mi ld Disease GFR >59 mL/min/1.73m2 Chronic Kidney Disease GFR 15-59 mL/min/1.73m2 Renal Failure GFR <15 mL/min/1.73m2 24 Effective 02/23/2017: [employer] has indicated interference with the drugs sulfasalazine and sulfapyridine. They suggest collection should occur prior to drug administration due to falsely depressed results. 25 Results may reflect a potent ial interference in Total Protein results in patients receiving dextran as blood volume expanders. 26 National Cholesterol Educati on Program (NCEP) Guidelines: Recommended Range <150 mg/dL 27 not fasting 28 Units are mL/min/1.73 m2 Chronic Kidney Disease Staging per NKF: Stage I & II GFR >=60 Normal to Mildly Decreased Stage III GFR 30-59 Moderately Decreased Stage IV GFR 15-29 Severely Decreased Stage V GFR <15 Very Little GFR Left ESRD GFR <15 on SEASONAL RETAIL MERCHANDISER 29 This test was developed and its performance characteristics determined by [facility]. It has not been cleared or approved by the Food and Drug Administration. Reference Range: Pubertal Children and Adults: 0.8 - 1.7 Performed at: [facility] [address] [place] [address] [id number] Development Mgr: Dmitriy Swenson MD, Phone: [phone] Procedures Date Code Description Status 04/19/2021 48340 TCM-Mod Completed 12/19/2020 65025 Office/Outpatient Established Mo d MDM 30-39 Min [...] for depression Assessments Date Code Description Provider 04/19/2021 N18.9 Chronic kidney disease, unspecif ied [...] Clinical Labs Plan of Treatment Future Appointment(s):* 05/30/2021 10:40 am - Frantz Woody MD at [facility] [place] 04/19/2021 - Frantz Woody MD* N18.9 Chronic kidney disease, unspecified * 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
--- OUTSIDE RECORDS SUMMARY | 2021-06-07 11:28 | CCD | Continuity of Care Document ---
Author Author Jose Ramon May Automated Organization Unknown Address Unknown Phone Unavailable Care Team Providers Care Veterinary Receptionist Name Role Phone Frantz Woody Unavailable Unavailable Unavailable [facility] Unavailable Unavailable Unavailable Magjorge Angella Unavailable IabnezShyann Unavailable Tanya Valadez Unavailable Unavailable Sherry Gustafson [...] 16-Apr-2021 Active Aspirin 81 81 MG Frantz Wodoy* Start : 16-Apr-2021 Active raNITIdine HCl 150 MG Frantz Woody* Start : 16-Apr-2021 Active Dificid 200 MG Frantz Woody* Start : 16-Apr-2021 End : 17-Apr-2021 Inactive Allergies and Adverse Reactions Name Dates Details Ramipril (Allergy) Onset: 16-Apr-2021 Status: Active Results Date Description Value Details No Known Results Plan of Care Name Dates Details Instructions Diet: Ins truction Type: Nutrition education Payers * Medicare - [facility] * [facility]
--- OUTSIDE RECORDS SUMMARY | 2021-06-07 11:28 | CCD | Continuity of Care Document ---
Author Author Britni Clinical Jose Ramon Martinez Organization Unknown Address [address] [place] [address] Phone [phone] Care Team Providers Care Starcher And Tenter Range Feeder Name Role Phone Frantz Woody MD [facility] [phone] [facility]naldo Flores [facility] Dmitriy Umaña MD AUTM [phone] [facility] AUT [phone] Problems Active Problems Provider Date Vertigo Onset: [...] 24HR 1 by mouth every day Unknown 0 000 Medications Administered in Office Medication SIG [...] CPT Code Status Date Vaccine Lot # [id number] Given 11/28/2020 Moderna Covid-19 Sars-Cov-2, mRNA, LNP-S, PF, 100 mcg/ 0.5 mL 04793 Given 10/28/2020 Moderna Covid-19 Sars-Cov-2, mRNA, LNP-S, PF, 100 mcg/ 0.5 mL 45565 Given 07/17/2019 Influenza Vaccin e, High Dose > 65 Years Old (Includes Medicare) 62029 Given 07/29/2018 Pneumococcal (Pneumovax 23) [id number] 23584 Given 07/09/2018 Influenza Vaccin e, High Dose > 65 Years Old (Includes Medicare) 25054 Given 07/10/2017 Influenza Vaccin e, High Dose > 65 Years Old (Includes Medicare) [id number] 60281 Given 03/14/2016 Prevnar 13 [id number] 26331 Given 07/06/2015 Influenza Vaccin e, High Dose > 65 Years Old (Includes Medicare) 99229 Given 06/06/2011 Influenza Virus Vaccine, Spl it 3 [place] [address] Given 05/23/2010 Influenza Virus Vaccine, Spl it 3 [place] [address] Given 05/26/2008 Influenza Virus Vaccine, Spl it [place] [address] Given 06/09/2007 Influenza Virus Vaccine, Spl it [place] [address] Given 04/23/2007 Zostavax 63673 Given 06/07/2006 Influenza Virus Vaccine, Spl it [...] Test Result H/L Range Note Cbcadp 04/19/2021 [facility] [address] [place] [address] [phone] WBC. 8.30 x10E3/uL 4.2-12.0 RBC 3.61 x10E6/uL Low 4.4-6.0 1 HGB 11.0 g/dL Low 13.8-18.0 HCT 34.8 % Low 39-52 MCV 96.4 fL 80-98 MCH 30.6 pg 27-33 MCHC 31.7 g/dL Low 32-36 RDW 14.8 % 11.2-15.2 PLT 247 x10E3/uL 135-420 MPV 8.1 fL 7.0-12.3 % Indra 93.0 % High 41.0-80.0 %Lym 4.6 % Low 10.0-45.2 %Lamoure 2.1 % 2.0-13.0 %Eos 0.1 % 0.0-8.0 %Baso 0.1 % 0.0-3.0 Neut 7.7 x10E3/uL 2.0-8.1 Lymp 0.4 x10E3/uL Low 0.6-3.1 [place]oure 0.2 x10E3/uL 0.0-1.0 Eos 0.0 x10E3/uL 0.0-0.6 Baso 0.0 x10E3/uL 0.0-0.2 Laboratory test finding 04/19/2021 [facility] [address] [place] [address] [phone] BNP 1015.8 pg/mL High 0-100 Manual Diff 04/19/2021 [facility] [address] [place] [address] [phone] Segs 89 % High 40-60 Band 0 % Low 3-5 Lymph 8 % Low 21-45 Monos 2 % Low 6-12 Eosinophils 0 % Low 1-5 Basophils 0 % Low 1-3 Atyp Lymph 1 % - Laboratory test finding 04/19/2021 [facility] [address] [facility] [place] [address] [phone] Venipuncture DONE - CMP-Male 04/19/2021 [facility] [address] [place] [address] [phone] Glucose 94 mg/dL 74-106 2 BUN 85 [...] mg/dL Low 8.9-10.5 Laboratory test finding 04/04/[address] [address] [phone] Magnesium Level 1.5 mg/dL Low 1.8-2.4 NT-Pro BNP 8105 pg/mL High <450 Thyroid Stimulating Hormone 3.550 uIU/ML Normal 0.358-3.740 Basic Metabolic Profile 04/04/[address] [place] [address] [phone] Glucose, Fasting 95 mg/dL Normal 70-100 Blood [...] 8.3 mg/dL Low 8.8-10.2 Liver Profile 04/04/2021 [facility] nter [address] [place] [address] [phone] Ast/Sgot 10 U/L Normal 7-37 Alt/SGPT 18 U/L Normal 12-78 Alkaline Phosphatase 100 U/L Normal 45-117 Bilirubin,Total 0.3 mg/dL Normal 0.2-1.0 Bilirubin,Direct 0.1 mg/dL Normal 0.0-0.2 Total Protein 6.0 GM/DL Low 6.4-8.2 Albumin 2.8 GM/DL Low 3.2-5.2 Albumin/Globulin Ratio 0.9 Normal Cardiac Marker Panel 04/04/2021 [facility] enter [address] [place] [address] [phone] CPK Creatine Phosphokinase 95 U/L Normal 39-30 8 CK-MB Value Mass 3.3 NG/ML Normal <3.6 MB/CK Relative Index 3.47 Normal < Or =4 10 Troponin I 0.03 NG/ML Normal < 0.10 11 CBC With Differential 04/04/[address] [address] [phone] White Blood Count 4.5 10 Normal 4.0-10.0 [...] 36.0-66.0 Lymph % 9.0 % Low 24.0-44.0 Lamoure % 7.9 % Normal 2.0-8.0 Eos % 0.0 % Normal 0.0-3.0 Baso % 0.0 % Normal 0.0-1.0 Immature Granulocyte % 0.2 % Normal 0-3.0 Nucleated Red Blood Cell % 0.0 % Normal 0-0 Neutrophils # 3.8 10 Normal 1.5-8.5 Lymph # 0.4 10 Low 1.5-5.0 Lamoure # 0.4 10 Normal 0.0-0.8 Eos # 0.0 10 Normal 0.0-0.5 Baso # 0.0 10 Normal 0.0-0.2 Influenza A/B RSV Covid Amp 04/04/[address] [address] [phone] Influenza A Amplification NEGATIVE Normal Negati ve 12 Influenza B Amplification NEGATIVE Normal Negative 13 RSV Amplification NEGATIVE Normal Negative 14 Sars Covid-19 Amplification NEGATIVE Normal Negative 15 Cbcadp 12/19/2020 [facility] [address] [place] [address] [phone] WBC. 5.30 x10E3/uL 4.2-12.0 RBC 3.94 x10E6/uL Low 4.4-6.0 HGB 12.1 g/dL Low 13.8-18.0 HCT 38.7 % Low 39-52 MCV 98.0 fL 80-98 MCH 30.7 pg 27-33 MCHC 31.3 g/dL Low 32-36 RDW 13.7 % 11.2-15.2 PLT 162 x10E3/uL 135-420 MPV 9.0 fL 7.0-12.3 % Indra 73.6 % 41.0-80.0 %Lym 19.7 % 10.0-45.2 %Lamoure 4.2 % 2.0-13.0 %Eos 2.1 % 0.0-8.0 %Baso 0.4 % 0.0-3.0 Neut 3.9 x10E3/uL 2.0-8.1 Lymp 1.0 x10E3/uL 0.6-3.1 Lamoure 0.2 x10E3/uL 0.0-1.0 Eos 0.1 x10E3/uL 0.0-0.6 Baso 0.0 x10E3/uL 0.0-0.2 Iron Panel Office 12/19/2020 [facility] [address] [place] [address] [phone] Iron 77 g/dL 50-175 16 Tibc 379 g/dL 250-450 17 Ferritin 19 ng/ml Low 22.0-322.0 18 % Saturation 20 % 13-48 19 Laboratory test finding 12/19/2020 [facility] [address] [place] [address] [phone] B12 5251 pg/mL High 211-911 20 CMP-Male 12/19/2020 [facility] [address] [place], [place] [id number] [phone] Glucose 110 mg/dL High 74-106 21 BUN [...] 1.9-3.7 Calcium 9.0 mg/dL 8.9-10.5 LPPM 12/19/2020 [facility] [address] [place] [address] [phone] Cholesterol 146 mg/dL 0-200 Triglycerides 84 mg/dL 0-249 26 HDL 59 mg/dL 40-60 LDL-Calculated 70 mg/dL 0-130 VLDL 17 mg/dL 0-28 Cardiac Risk 2.47 Ratio Low 3.7-5.3 Laboratory test finding 12/19/2020 [facility] [address] [place] [address] [phone] Venipuncture DONE - 27 Complete Blood Count 10/30/2020 [facility] enter [address] [place] [address] [phone] White Blood Count 3.4 10 Low 4.0-10.0 [...] % Normal 0-0 Basic Metabolic Profile 10/30/[address] [address] [phone] Glucose, Fasting 91 mg/dL Normal 70-100 Blood [...] mg/dL Low 8.8-10.2 Laboratory test finding 10/30/2020 [facility] [address] [place] [address] [phone] Thyroid Stimulating Hormone 8.360 uIU/ML High 0. 358-3.740 Free T4 By Dialysis Direct 0.90 ng/dL Normal . 2 9 1 1+ Ovalocytes 2+ Anisocytosis 1+ Hypochromasia 2 [place] [employer] n (ADA) Recommended Range is [...] Failure GFR <15 mL/min/1.73m2 7 Effective 02/23/2017: [employer]4 [employer] has indicated interference with the drugs sulfasalazine [...] Little GFR Left ESRD GFR <15 on SQUAD BOSS 10 DIAGNOSIS CRITERIA MMB ng/ml Relative Index (RI) NON-AMI < or = 5 N/A W[place] ZONE > 5 < or = 4 AMI > 5 > 4 11 Troponin I Reference Interva l for Siemens [place] LOCI: 99th Percentile= 0.00-0.045 ng/ml Risk Stratification: [...] pathogens. DISCLAIMER: Testing was performed using the [employer] SARS-CoV-2 test. This test was developed and its performance characteristics determined by [facility]. This test has not been FDA cleared [...] 20 Results Confirmed on Dilutio n. 21 [place] Diabetes [employer] n (ADA) Recommended Range is 65-99 mg/dL 22 Results Confirmed by Repeat Analysis. Results faxed at 437 12/19/20 kk Called to Lauren at 437 12/19/20 kk 23 Normal Kidney Function or Mi ld Disease GFR >59 mL/min/1.73m2 Chronic Kidney Disease GFR 15-59 mL/min/1.73m2 Renal Failure GFR <15 mL/min/1.73m2 24 Effective 02/23/2017: L4 [employer] has indicated interference with the drugs sulfasalazine [...] Little GFR Left ESRD GFR <15 on SQUAD BOSS 29 This test was developed and its performance characteristics determined by [facility]. It has not been cleared or approved by the Food and Drug Administration. 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
--- OUTSIDE RECORDS SUMMARY | 2021-06-07 11:28 | CCD | Continuity of Care Document ---
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
--- OUTSIDE RECORDS SUMMARY | 2021-06-07 11:28 | CCD | Continuity of Care Document ---
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
--- OUTSIDE RECORDS SUMMARY | 2021-06-07 11:28 | CCD | Continuity of Care Document ---
Author Author Jose Ramon May Automated Organization Unknown Address Unknown Phone Unavailable Care Team Providers Care Segment Producer Name Role Phone Frantz Woody Unavailable Unavailable Unavailable [facility] Unavailable Unavailable Unavailable Magjorge Angella Unavailable IbanezShyann [...] Nutrition education Payers * Medicare - [facility] * [facility]
--- OUTSIDE RECORDS SUMMARY | 2021-06-07 11:30 | CCD ---
Author Author [facility] Organization [facility] Address Unknown Phone Unavailable Care Team Providers Care Central Sterile Technician Name Role Phone Jose Martin ZARCO MD Unavailable Unavailable Jose [...] R BEL MD Unavailable Unavailable CAROLEE, R BLE MD Unavailable Unavailable CAROLEE, R BEL MD [...] BEL MD Unavailable Unavailable CAROLEE, R BEL OSHEA Unavailable Unavailable CAROLEE, R BEL OSHEA Unavailable Unavailable CAROLEE, R BEL OSHEA Unavailable Unavailable CAROLEE, R BEL MD Unavailable Unavailable CAROLEE, R BEL MD Unavailable Unavailable CAROLEE, R BEL MD Unavailable Unavailable CAROLEE, R BEL Unavailable Unavailable CAROLEE, R BEL OSHEA Unavailable Unavailable JENNIE WANG MD Unavailable Unavailable JENNIE WANG MD Unavailable Unavailable JENNIE WANG MD Unavailable Unavailable JENNIE WANG MD Unavailable Unavailable Velazquez, L Nikki PA Unavailable Unavailable Velazquez, L Nikki PA Unavailable Unavailable Velazquez, L Nikki PA Unavailable Unavailable Velazquez, L Nikki PA Unavailable Unavailable Velazquez, L Nikki PA Unavailable Unavailable Velazquez, L Nikki PA Unavailable Unavailable Velazquez, L Nikki PA Unavailable Unavailable Velazquez, L Nikki PA Unavailable Unavailable Velazquez, L Nikki PA Unavailable Unavailable Velazquez, L Nikki PA Unavailable Unavailable Velazquez, L Nikki PA Unavailable Unavailable Velazquez, L Nikki PA Unavailable Unavailable Velazquez, L Nikki PA Unavailable Unavailable Velazquez, L Nikki PA Unavailable Unavailable Velazquez, L Nikki PA Unavailable Unavailable Velazquez, L Nikki PA Unavailable Unavailable Velazquez, L Nikki PA Unavailable Unavailable Velazquez, L Nikki PA Unavailable Unavailable Velazquez, L Nikki PA Unavailable Unavailable Velazquez, L Nikki PA Unavailable Unavailable Velazquez, L Nikki PA Unavailable Unavailable Velazquez, L Nikki PA Unavailable Unavailable Velazquez, L Nikki PA Unavailable Unavailable Velazquez, L Nikki PA Unavailable Unavailable Velazquez, L Nikki PA Unavailable Unavailable Velazquez, L Nikki PA Unavailable Unavailable Velazquez, L Nikki PA Unavailable Unavailable Velazquez, L Nikki PA Unavailable Unavailable Velazquez, L Nikki PA Unavailable Unavailable Velazquez, L Nikki PA Unavailable Unavailable Velazquez, L Nikki PA Unavailable Unavailable Velazquez, L Nikki PA Unavailable Unavailable Velazquez, L Nikki PA Unavailable Unavailable Velazquez, L Nikki PA Unavailable Unavailable Velazquez, L Nikki PA Unavailable Unavailable Velazquez, L Nikki PA Unavailable Unavailable Velazquez, L Nikki PA Unavailable Unavailable Velazquez, L Nikki PA Unavailable Unavailable Velazquez, L Nikki PA Unavailable Unavailable Whitehall, V DADA PA-C Unavailable Unavailable [place]hall, V DADA PA-C Unavailable Unavailable Candice, V DADA PA-C Unavailable Unavailable Candice, V DADA PA-C Unavailable Unavailable Candice, V DADA PA-C Unavailable Unavailable [place]hall, V DADA PA-C Unavailable Unavailable Candice, V DADA PA-C Unavailable Unavailable [place]hall, V DADA PA-C Unavailable Unavailable [place], V DADA PA-C Unavailable Unavailable [place], V DADA PA-C Unavailable Unavailable Candice, V DADA PA-C Unavailable Unavailable [place]hall, V DADA PA-C Unavailable Unavailable Candice, V DADA PA-C Unavailable Unavailable [place]hall, V DADA PA-C Unavailable Unavailable Fons, M Alma BACK OFFICE MEDICAL ASSISTANT Unavailable Unavailable Fons, M Alma BACK OFFICE MEDICAL ASSISTANT Unavailable Unavailable Fons, M Alma BACK OFFICE MEDICAL ASSISTANT Unavailable Unavailable Fons, M Alma BACK OFFICE MEDICAL ASSISTANT Unavailable Unavailable Fons, M Alma BACK OFFICE MEDICAL ASSISTANT Unavailable Unavailable Fons, M Alma BACK OFFICE MEDICAL ASSISTANT Unavailable Unavailable Fons, M Alma BACK OFFICE MEDICAL ASSISTANT Unavailable Unavailable Fons, M Alma BACK OFFICE MEDICAL ASSISTANT Unavailable Unavailable Fons, M Alma BACK OFFICE MEDICAL ASSISTANT Unavailable Unavailable Fons, M Alma BACK OFFICE MEDICAL ASSISTANT Unavailable Unavailable Fons, M Alma BACK OFFICE MEDICAL ASSISTANT Unavailable Unavailable Fons, M Alma BACK OFFICE MEDICAL ASSISTANT Unavailable Unavailable Fons, M Alma BACK OFFICE MEDICAL ASSISTANT Unavailable Unavailable Fons, M Alma BACK OFFICE MEDICAL ASSISTANT Unavailable Unavailable Fons, M Alma BACK OFFICE MEDICAL ASSISTANT Unavailable Unavailable Fons, M Alma BACK OFFICE MEDICAL ASSISTANT Unavailable Unavailable Fons, M Alma BACK OFFICE MEDICAL ASSISTANT Unavailable Unavailable Fons, M Alma BACK OFFICE MEDICAL ASSISTANT Unavailable Unavailable Fons, M Alma BACK OFFICE MEDICAL ASSISTANT Unavailable Unavailable Fons, M Alma BACK OFFICE MEDICAL ASSISTANT Unavailable Unavailable Fons, M Alma BACK OFFICE MEDICAL ASSISTANT Unavailable Unavailable Fons, M Alma BACK OFFICE MEDICAL ASSISTANT Unavailable Unavailable Fons, M Alma BACK OFFICE MEDICAL ASSISTANT Unavailable Unavailable Fons, M Alma BACK OFFICE MEDICAL ASSISTANT Unavailable Unavailable Fons, M Alma BACK OFFICE MEDICAL ASSISTANT Unavailable Unavailable Fons, M Alma BACK OFFICE MEDICAL ASSISTANT Unavailable Unavailable Fons, M Alma BACK OFFICE MEDICAL ASSISTANT Unavailable Unavailable Fons, M Alma BACK OFFICE MEDICAL ASSISTANT Unavailable Unavailable Fons, M Alma BACK OFFICE MEDICAL ASSISTANT Unavailable Unavailable Fons, M Alma BACK OFFICE MEDICAL ASSISTANT Unavailable Unavailable Fons, M Alma BACK OFFICE MEDICAL ASSISTANT Unavailable Unavailable Fons, M Alma BACK OFFICE MEDICAL ASSISTANT Unavailable Unavailable Fons, M Alma BACK OFFICE MEDICAL ASSISTANT Unavailable Unavailable Fons, M Alma BACK OFFICE MEDICAL ASSISTANT Unavailable Unavailable Fons, M Alma BACK OFFICE MEDICAL ASSISTANT Unavailable Unavailable Fons, M Alma BACK OFFICE MEDICAL ASSISTANT Unavailable Unavailable Fons, M Alma BACK OFFICE MEDICAL ASSISTANT Unavailable Unavailable Fons, M Alma BACK OFFICE MEDICAL ASSISTANT Unavailable Unavailable Fons, M Alma BACK OFFICE MEDICAL ASSISTANT Unavailable Unavailable Fons, M Alma BACK OFFICE MEDICAL ASSISTANT Unavailable Unavailable Fons, M Alma BACK OFFICE MEDICAL ASSISTANT Unavailable Unavailable Fons, M Alma BACK OFFICE MEDICAL ASSISTANT Unavailable Unavailable Fons, M Alma BACK OFFICE MEDICAL ASSISTANT Unavailable Unavailable Fons, M Alma BACK OFFICE MEDICAL ASSISTANT Unavailable Unavailable Fons, M Alma BACK OFFICE MEDICAL ASSISTANT Unavailable Unavailable Fons, M Alma BACK OFFICE MEDICAL ASSISTANT Unavailable Unavailable Fons, M Alma BACK OFFICE MEDICAL ASSISTANT Unavailable Unavailable Fons, M Alma BACK OFFICE MEDICAL ASSISTANT Unavailable Unavailable Fons, M Alma BACK OFFICE MEDICAL ASSISTANT Unavailable Unavailable Fons, M Alma BACK OFFICE MEDICAL ASSISTANT Unavailable Unavailable Fons, M Alma BACK OFFICE MEDICAL ASSISTANT Unavailable Unavailable Fons, M Alma BACK OFFICE MEDICAL ASSISTANT Unavailable Unavailable Fons, M Alma BACK OFFICE MEDICAL ASSISTANT Unavailable Unavailable GARCIA, COLTEN MBBS Unavailable Unavailable GARCIA, COLTEN MBBS Unavailable Unavailable GARCIA, COLTEN MBBS Unavailable Unavailable GARCIA, COLTEN MBBS Unavailable Unavailable GARCIA, COLTEN MBBS Unavailable Unavailable GARCIA, COLTEN MBBS Unavailable Unavailable GARCIA, COLTEN MBBS Unavailable Unavailable GARCIA, COLTEN MBBS Unavailable Unavailable GARCIA, COLTEN MBBS Unavailable Unavailable GARCIA, COLTEN MBBS Unavailable Unavailable GARCIA, COLTEN MBBS Unavailable Unavailable GARCIA, COLTEN MBBS Unavailable Unavailable GARCIA, COLTEN MBBS Unavailable Unavailable GARCIA, COLTEN MBBS Unavailable Unavailable GARCIA, COLTEN MBBS Unavailable Unavailable GARCIA, COLTEN MBBS Unavailable Unavailable GARCIA, COLTEN MBBS Unavailable Unavailable GARCIA, COLTEN MBBS Unavailable Unavailable GARCIA, COLTEN MBBS Unavailable Unavailable GARCIA, COLTEN MBBS Unavailable Unavailable GARCIA, COLTEN MBBS Unavailable Unavailable GARCIA, COLTEN MBBS Unavailable Unavailable GARCIA, COLTEN MBBS Unavailable Unavailable GARCIA, COLTEN MBBS Unavailable Unavailable GARCIA, COLTEN MBBS Unavailable Unavailable GARCIA, COLTEN MBBS Unavailable Unavailable GARCIA, COLTEN MBBS Unavailable Unavailable GARCIA, COLTEN MBBS Unavailable Unavailable GARCIA, COLTEN MBBS Unavailable Unavailable GARCIA, COLTEN MBBS Unavailable Unavailable GARCIA, COLTEN MBBS Unavailable Unavailable GARCIA, COLTEN MBBS Unavailable Unavailable GARCIA, COLTEN MBBS Unavailable Unavailable GARCIA, COLTEN MBBS Unavailable Unavailable GARCIA, COLTEN MBBS Unavailable Unavailable GARCIA, COLTEN MBBS Unavailable Unavailable GARCIA, COLTEN MBBS Unavailable Unavailable GARCIA, COLTEN MBBS Unavailable Unavailable Rico Mirandajtech Unavailable Unavailable Rico Mirandajtech Unavailable Unavailable Rico Mirandajtech Unavailable Unavailable Rico Mirandajtech Unavailable Unavailable Rico Mirandajtech Unavailable Unavailable Rico Mirandajtech Unavailable Unavailable Rico Mirandajtech Unavailable Unavailable Rico Mirandajtech Unavailable Unavailable Rico Mirandajtech Unavailable Unavailable Rico Mirandajtech Unavailable Unavailable Rico Mirandajtech Unavailable Unavailable Rico Mirandajtech Unavailable Unavailable SleRico alarconjtech Unavailable Unavailable Rico Mirandajtech Unavailable Unavailable Rico Mirandajtech Unavailable Unavailable Rico Mirandacisco OSHEA Unavailable Unavailable Slezka Vojtech Unavailable Unavailable SlezkaRicojtech Unavailable Unavailable SlezkaRicojtech Unavailable Unavailable Slezka Vojtech Unavailable Unavailable Slezka, Vojtech Unavailable Unavailable SlezkaRicojtech Unavailable Unavailable SlezkaRicojtech Unavailable Unavailable Slezka Vojtech Unavailable Unavailable SlezkaRicojtech Unavailable Unavailable SlezkaRicojtech Unavailable Unavailable SlezkaRicojtech Unavailable Unavailable SlezkaRicojtech Unavailable Unavailable SlezkaRicojtech Unavailable Unavailable SlezkaRicojtech Unavailable Unavailable Slezka, Vojtech Unavailable Unavailable Slezka, Vojtech Unavailable Unavailable Slezka, Ricojtech Unavailable Unavailable Slezka, Ricojtech Unavailable Unavailable Slezka, Ricojtech Unavailable Unavailable SlezkaRicojtech Unavailable Unavailable SlezkaRicojtech Unavailable Unavailable SlezkaRicojtech Unavailable Unavailable SlezkaRicojtech Unavailable Unavailable SlezkaRicojtech Unavailable Unavailable SlezkaRicojtech Unavailable Unavailable SlezkaRicojtech Unavailable Unavailable SlezkaRicojtech Unavailable Unavailable SlezkaRicojtech Unavailable Unavailable SlezkaRicojtech Unavailable Unavailable SlezkaRicojtech Unavailable Unavailable SlezkaRicojtech Unavailable Unavailable SlezkaRicojtech Unavailable Unavailable SlezkaRicojtech Unavailable Unavailable SlezkaRicojtech Unavailable Unavailable SlezkaRicojtech Unavailable Unavailable SlezkaRicojtech Unavailable Unavailable SlezkaRicojtech Unavailable Unavailable Slezka Vojtech Unavailable Unavailable SlezkaRicojtech Unavailable Unavailable SlezkaRicojtech Unavailable Unavailable SlezkaRicojtech Unavailable Unavailable Slezka Vojtech Unavailable Unavailable Re-disclosure Warning The records that [...] is protected by Article 27-F of the [facility] Public Health law. If you continue you may have access to information: Regarding HIV / AIDS; Provided by facilities licensed or operated by the [facility] Office of Mental Health; or Provided by the [facility] Office for People With Developmental Disabilities. If such information is present, then the following [facility] mandated warning applies: This information [...] law may result in a fine or assisted sentence or both. A general authorization for the release of medical or other information is NOT sufficient authorization for further disc losure. Allergies and Adverse Reactions Type Description Substance Reaction Status Data Source(s ) Ramipril Ramipril Ramipril active NETSMART ([facility]) Propensity to adverse reactions NO KNOWN ALLERGIES NO KNOWN ALLERGIES [facility] Family History Family Member Name Family Member Gender Family Member Status Date o f Status Description Data Source(s) Unknown Male Problem [facility] ([facility]) Encounters Encounter Providers Location Date Indications Data Source(s ) Unknown [address] [facility] [id number] 06/01/2021 12:00:00 AM EDT eCW1 ([facility]) (Cysto1) Urology [address] [place] [address] 05/31/2021 12:00:00 AM EDT eCW1 ([facility]) Outpatient [email or web address]-[email or web address].CHERISE 05/11/2021 10:14:09 AM EDT [facility] Outpatient Attender: BEL ZARCO MD [facility] Internal Med at [facility] 04/19/2021 04:00:00 PM EDT [facility] 04/16/2021 01:00:00 AM EDT - 04:16:16 PM [facility] Outpatient SJPBertoCT-SJP.SYR 02/02/2021 11:11:26 AM EDT [facility] Outpatient Attender: DADA ALANISCHUN-SJP 07/2021 12:00:00 AM EDT - 01/04/2021 12:09:03 PM EDT [facility] Outpatient Attender: BEL ZARCO MD [facility] Internal Med at [facility] 12/19/2020 01:20:00 PM EDT [facility] Outpatient Attender: Nikki ALANISCHUN-PHAMP.CHUN 02/2021 10:11:54 AM EDT - 11/30/2020 11:14:25 AM EDT [facility] Outpatient CHUN-PHAMP 10/28/2020 03:32:20 PM EST [facility] Outpatient Attender: Nikki VANG-ANT.CHUN 11/2020 12:00:00 AM EST - 10/27/2020 04:07:13 PM EST [facility] Outpatient CHUN-ANT.CHUN 10/27/2020 12:00:00 AM EST [facility] Outpatient Attender: Nikki VANG-ANT.CHUN 12:00:00 AM EST - 10/20/2020 10:04:52 AM EST [facility] Outpatient Attender: Nikki VANG-CHUN 12:00:00 AM EST - 10/14/2020 11:38:34 AM EST [facility] Outpatient Attender: DADA ALANISCHUN-PHAMPBertoCHUN 12:00:00 AM EST - 10/10/2020 10:58:07 AM EST [facility] Outpatient Attender: Alma VANG-SJP.CHUN 12:00:00 AM EST - 10/06/2020 09:27:49 AM [facility] Inpatient Attender: COLTEN MISHRAA ttender: JENNIE LOCONYSilver MDAdmitter: JENNIE WANG MDReferrer: JENNIE WANG MDConsultant: COLTEN MISHRA [id number] 09/24/2020 12:00:00 AM EST - 09/28/2020 02:10:00 PM EST Atrioventricular block, complete [facility] Atrioventricular block, complete Patient discharged. Outpatient Attender: Alma Sheriff FNPReferrer: Alma CLARK-SJP.CHUN 09/01/2020 12:00:00 AM EST - 09/01/2020 02:42:19 PM EST [facility] Outpatient Referrer: Alma VANG-SJP.CHUN 09/01/2020 12:00:00 AM [facility] Outpatient Attender: Alma VANG-SJP.CHUN 10:49:04 AM EST - 06/29/2020 11:46:15 AM EST [facility] Outpatient Attender: BEL ZARCO MD [facility] Internal Med at [facility] 06/13/2020 01:20:00 PM EDT [facility] ([facility]) Outpatient Attender: Scarlet ALANISCHUN-SJP.CHUN 05/26 12:00:00 AM EDT - 06/07/2020 12:07:41 PM EDT [facility] Immunizations Vaccine Date Status Description Data Source(s) Influenza High Dose 65>,Fluad Quadrivalent 05/30/2021 11:44:00 A M EDT completed [facility] ([facility]) Moderna Covid-19 Sars-Cov-2, mRNA, LNP-S, PF, 100 mcg/ 0.5 mL 11/28/2020 12:00:00 AM EDT completed [facility] ([facility]) COVID-19 VACCINE Moderna 11/28/2020 12:00:00 AM EDT completed [facility] Vaccine Series Complete: YESThis Data wa s Submitted to [facility]. COVID-19 VACCINE, MRNA-1273, LNP-S (MODERNA)/PF 11/28/2020 1 2:00:00 AM EDT completed [facility] COVID-19 VACCINE Moderna 10/28/2020 12:00:00 AM EST completed [facility] Vaccine Series Complete: NOThis Data was Submitted to [facility]. COVID-19 VACCINE, MRNA-1273, LNP-S (MODERNA)/PF 10/28/2020 1 2:00:00 AM EST completed [facility] Moderna Covid-19 Sars-Cov-2, mRNA, LNP-S, PF, 100 mcg/ 0.5 mL 10/27/2020 11:00:00 PM EST completed [facility] ([facility]) Medications Medication Brand Name Start Date Product Form Dose Route Admi nistrative Instructions Pharmacy Instructions Status Indications Reaction Description Data Source(s) 400 mg (241.3 mg magnesium) 06/02/2021 12:00:00 AM EDT table t 90 TAKE ONE TABLET BY MOUTH EVERY DAY TAKE ONE TABLET BY MOUTH EVERY DAY SOLD: 06/04/2021 [facility] Calcitriol 0.01548 MG Oral Capsule Calcitriol 05/30/2021 12:00:00 AM EDT ORAL active [facility] torsemide 10 MG Oral Tablet Torsemide 05/30/2021 12:00:00 AM EDT ORAL active [facility] ([facility]) Lactobacillus acidophilus [id number] UNT Oral Tablet Acidoph ilus Probiotic 05/30/2021 12:00:00 AM EDT ORAL active [facility] ([facility]) Lokelma Lokelma 05/30/2021 12:00:00 AM EDT active [facility] ([facility]) Finasteride 5 MG Oral Tablet FINASTERIDE 05/16/2021 12:00:00 AM EDT ta blet 30 TAKE ONE TABLET BY MOUTH DAILY AT BEDTIME TAKE ONE TABLET BY MOUTH DAILY AT BEDTIME SOLD: 05/17/2021 [facility] 10 mg 05/16/2021 12:00:00 AM EDT tablet 30 TAKE 1 TABLET [10MG] BY MOUTH DAILY TAKE 1 TABLET [10MG] BY MOUTH DAILY SOLD: 05/17/2021 [facility] 1 billion cell- 250 mg 05/16/2021 12:00:00 AM EDT tablet 60 TAKE ONE TABLET BY MOUTH TWICE A DAY WITH MEALS TAKE ONE TABLET BY MOUTH TWICE A DAY WITH MEALS SOLD: 05/17/2021 [facility] 0.4 mg 05/16/2021 12:00:00 AM EDT capsule 30 TAKE ONE CAPSULE BY MOUTH DAILY AT BEDTIME TAKE ONE CAPSULE BY MOUTH DAILY AT BEDTIME SOLD: 05/17/2021 [facility] 25 mg 05/11/2021 12:00:00 AM EDT tablet extended release 24 hr 30 TAKE ONE TABLET BY MOUTH EVERY DAY TAKE ONE TABLET BY MOUTH EVERY DAY SOLD: 05/17/2021 [facility] Tylenol Extra Strength 500 MG Tylenol Extra Strength 04/25/2021 01:00:00 AM EDT completed NETSMA RT ([facility]) Torsemide 100 MG Torsemide 04/17/2021 01:00:00 AM EDT completed NETSMART ([facility]) Calcitriol 0.25 MCG Calcitriol 04/16/2021 01:00:00 AM EDT completed NETSMART ([facility]) Metoprolol Succinate ER 25 MG Metoprolol Succinate ER 2020 01:00:00 AM EDT completed NETSMAR T ([facility]) Lokelma 5 GM Lokelma 04/16/2021 01:00:00 AM EDT co mpleted NETSMART ([facility]) Dificid 200 MG Dificid 04/16/2021 01:00:00 AM EDT completed [facility] ([facility]) raNITIdine HCl 150 MG raNITIdine HCl 04/16/2021 01:00:00 AM EDT completed NETSMART ([facility]) Aspirin 81 81 MG Aspirin 81 04/16/2021 01:00:00 AM EDT completed NETSMART ([facility] ) Torsemide 100 MG Torsemide 04/16/2021 01:00:00 AM EDT 50.0 {mg} completed NETSMART ([facility]) 200 mg 04/10/2021 12:00:00 AM EDT tablet 8 TAKE 1 TABLET [200MG] BY MOUTH TWO TIMES A DAY TAKE 1 TABLET [200MG] BY MOUTH TWO TIMES A DAY SOLD: [facility] 1,000 mcg/mL 04/03/2021 12:00:00 AM EDT solution 3 INJECT 1ML INTRAMUSCULARLY EVERY 10 DAYS INJECT 1ML INTRAMUSCULARLY EVERY 10 DAYS SOLD: 05/09/2021 [facility] 1,000 mcg/mL 04/03/2021 12:00:00 AM EDT solution 3 INJECT 1ML INTRAMUSCULARLY EVERY 10 DAYS INJECT 1ML INTRAMUSCULARLY EVERY 10 DAYS SOLD: 04/03/2021 [facility] 20 mg 03/25/2021 12:00:00 AM EDT capsule,delayed release (DR/EC) 90 TAKE ONE CAPSULE BY MOUTH EVERY DAY TAKE ONE CAPSULE BY MOUTH EVERY DAY SOLD: 03/30/2021 [facility] 25 mg 02/07/2021 12:00:00 AM EDT tablet extended release 24 hr 30 TAKE ONE TABLET BY MOUTH EVERY DAY TAKE ONE TABLET BY MOUTH EVERY DAY SOLD: 03/30/2021 [facility] 25 mg 02/07/2021 12:00:00 AM EDT tablet extended release 24 hr 30 TAKE ONE TABLET BY MOUTH EVERY DAY TAKE ONE TABLET BY MOUTH EVERY DAY SOLD: 02/21/2021 [facility] sodium zirconium cyclosilicate 5000 MG Powder for Oral Suspension [Lokelma] SODIUM ZIRCONIUM CYCLOSILICATE 02/04/2021 12:00:00 AM EDT powder in packet 11 DISSOLVE 1 PACKET IN 1/3 CUP OF WATER, TAKE ON SUNDAYS DISSOLVE 1 PACKET IN 1/3 CUP OF WATER, TAKE ON SUNDAYS SOLD: 06/05/2021 [facility] 0.25 mcg 02/04/2021 12:00:00 AM EDT capsule 30 TAKE ONE CAPSULE BY MOUTH 3 TIMES A WEEK (SATURDAY, SATURDAY, SATURDAY) TAKE ONE CAPSULE BY MOUTH 3 TIMES A WEEK (SATURDAY, SATURDAY, SATURDAY) SOLD: 02/06/2021 [facility] Calcitriol 0.94981 MG Oral Capsule 0.25 mcg CALCITRIOL 02/04/2021 12:00:00 AM EDT capsule 30 TAKE ONE CAPSULE BY MOUTH 3 TIMES A WEEK (SATURDAY, SATURDAY, SATURDAY) TAKE ONE CAPSULE BY MOUTH 3 TIMES A WEEK (SATURDAY, , SATURDAY) SOLD: 04/22/2021 [facility] sodium zirconium cyclosilicate 5000 MG Powder for Oral Suspension [Lokelma] SODIUM ZIRCONIUM CYCLOSILICATE 02/04/2021 12:00:00 AM EDT powder in packet 11 DISSOLVE 1 PACKET IN 1/3 CUP OF WATER, TAKE ON SUNDAYS DISSOLVE 1 PACKET IN 1/3 CUP OF WATER, TAKE ON SUNDAYS SOLD: 02/06/2021 [facility] 100 mg 01/30/2021 12:00:00 AM EDT tablet 45 TAKE ONE-HALF TABLET(50MG) BY MOUTH EVERY DAY TAKE ONE-HALF TABLET(50MG) BY MOUTH EVERY DAY SOLD: 02/02/20 21 [facility] 100 mg 01/30/2021 12:00:00 AM EDT tablet 45 TAKE ONE-HALF TABLET(50MG) BY MOUTH EVERY DAY TAKE ONE-HALF TABLET(50MG) BY MOUTH EVERY DAY SOLD: 05/09/20 21 [facility] torsemide 100 MG Oral Tablet torsemide (DEMADEX) 100 M G tablet torsemide (DEMADEX) 100 MG tablet 01/04/2021 12:00:00 AM EDT 50 mg Oral active Take 0.5 tablets (50 mg total) by mouth daily [facility] 24 HR metoprolol succinate 25 MG Extende d Release Oral Tablet metoprolol succinate (TOPROL-XL) 25 MG 24 hr tablet metoprolol succinate (TOPROL-XL) 25 MG 24 hr tablet 01/04/2021 12:00:00 AM EDT 25 mg Oral active Chronic combined systolic and diastolic congestive heart failure Take 1 tablet (25 mg total) by mouth daily [facility] Chronic combined systolic and diastolic congestive heart failure 25 mg 12/01/2020 12:00:00 AM EDT tablet extended release 24 hr 30 TAKE ONE TABLET BY MOUTH EVERY DAY TAKE ONE TABLET BY MOUTH EVERY DAY SOLD: 12/02/2020 [facility] 25 mg 12/01/2020 12:00:00 AM EDT tablet extended release 24 hr 30 TAKE ONE TABLET BY MOUTH EVERY DAY TAKE ONE TABLET BY MOUTH EVERY DAY SOLD: 01/09/2021 [facility] 24 HR metoprolol succinate 25 MG Extende d Release Oral Tablet metoprolol succinate (TOPROL-XL) 25 MG 24 hr tablet metoprolol succinate (TOPROL-XL) 25 MG 24 hr tablet 11/30/2020 12:00:00 AM EDT 25 mg Oral aborted Chronic combined systolic and diastolic congestive heart failure Take 1 tablet (25 mg total) by mouth daily [facility] Chronic combined systolic and diastolic congestive heart failure 100 mg 11/05/2020 12:00:00 AM EST tablet 45 TAEK 1/2 TABLET BY MOUTH ONCE DAILY TAEK 1/2 TABLET BY MOUTH ONCE DAILY SOLD: 11/06/2020 [email or web address] 20 mg 11/05/2020 12:00:00 AM EST tablet 180 TAKE ONE TABLET BY MOUTH THREE TIMES A DAY TAKE ONE TABLET BY MOUTH THREE TIMES A DAY SOLD: 11/06/2020 [email or web address] carvedilol 6.25 MG Oral Tablet CARVEDILOL 11/05/2020 12:00:00 AM EST tablet 180 TAKE ONE TABLET BY MOUTH TWICE A DAY TAKE ONE TABLET BY MOUT H TWICE A DAY SOLD: 11/06/2020 [email or web address] carvedilol 6.25 MG Oral Tablet carvedilol (COREG) 6.25 MG tablet carvedilol (COREG) 6.25 MG tablet 11/04/2020 12:00:00 AM EST 6.25 mg Oral aborted Take 1 tablet (6.25 mg total) by mouth 2 (two) times a day [facility] torsemide 100 MG Oral Tablet torsemide (DEMADEX) 100 M G tablet torsemide (DEMADEX) 100 MG tablet 11/04/2020 12:00:00 AM EST 50 mg Oral aborted Take 0.5 tablets (50 mg total) by mouth daily [facility] Isosorbide Dinitrate 20 MG Oral Tablet i sosorbide dinitrate (ISORDIL) 20 MG tablet isosorbide dinitrate (ISORDIL) 20 MG tablet 11/04/2020 12:00:00 AM EST 20 mg Oral aborted Take 1 tab let (20 mg total) by mouth 3 (three) times a day [facility] Hydralazine Hydrochloride 50 MG Oral Tablet HYDRALAZINE HCL 10/15/2020 12:00:00 AM EST tablet 270 TAKE ONE TABLET BY MOUTH THR EE TIMES A DAY TAKE ONE TABLET BY MOUTH THREE TIMES A DAY SOLD: 10/15/2020 [facility] Hydralazine Hydrochloride 50 MG Oral Tab let hydrALAZINE (APRESOLINE) 50 MG tablet hydrALAZINE (APRESOLINE) 50 MG tablet 10/14/2020 12:00:00 AM EST 50 mg Oral aborted Chronic combined systolic and diastolic congestive heart failure Take 1 tablet (50 mg total) by mouth 3 ( three) times a day [facility] Chronic combined systolic and diastolic congestive heart failure 325 mg 10/07/2020 12:00:00 AM EST tablet 30 TAKE TWO TABLETS BY MOUTH EVERY 6 HOURS NEEDED FOR PAIN TAKE TWO TABLETS BY MOUTH EVERY 6 HOURS NEEDED FOR PAIN SOLD: 10/15/2020 [facility] Acetaminophen 325 MG Oral Tablet acetaminophen (TYLENO L) 325 MG tablet acetaminophen (TYLENOL) 325 MG tablet 10/07/2020 12:00:00 AM EST 65 0 mg Oral active Take 2 tablets (650 mg total) by mouth every 6 (six) hours as needed for pain [facility] 100 mg 10/06/2020 12:00:00 AM EST tablet 30 TAKE ONE TABLET BY MOUTH EVERY DAY TAKE ONE TABLET BY MOUTH EVERY DAY SOLD: 10/06/2020 [facility] torsemide 100 MG Oral Tablet torsemide (DEMADEX) 100 M G tablet torsemide (DEMADEX) 100 MG tablet 10/06/2020 12:00:00 AM EST 100 mg Oral aborted Take 1 tablet (100 mg total) by mouth daily [facility] Cephalexin 500 MG Oral Capsule cephalexin (KEFLEX) 500 MG capsule cephalexin (KEFLEX) 500 MG capsule 10/06/2020 12:00:00 AM EST 500 mg Oral active Take 1 capsule (500 mg total) by mouth 2 (two) times a day for 10 days [facility] Cephalexin 500 MG Oral Capsule CEPHALEXIN 10/06/2020 12:00:00 AM EST capsule 20 TAKE ONE CAPSULE BY MOUTH TWICE A DAY FOR 10 DAYS TAKE ONE CAPSULE BY MOUTH TWICE A DAY FOR 10 DAYS SOLD: 10/06/2020 [facility] [employer] [facility] Limited magnesium sulfate in dextrose 5 % infusion (premix) 1 g [id number] [phone] 09/28/2020 08:00:00 AM EST 1 g Intravenous completed 1 g, Intravenous, Administer over 60 Minutes, Every 1 hour, First dose on Sat09/28/20 at 0800, For 2 doses [facility] Medication administered onsite Furosemide 40 MG Oral Tablet Furosemide 40 MG Oral Tab let (LASIX) Furosemide 40 MG Oral Tablet (LASIX) 09/28/2020 12:00:00 AM EST 20 mg Oral active Take 0.5 tablets by mouth daily [facility] Acetaminophen 325 MG Oral Tablet acetaminophen (TYLENO L) tablet 650 mg acetaminophen (TYLENOL) tablet 650 mg 09/27/2020 08:15:00 PM EST 65 0 mg Oral completed 650 mg, Oral, O nce, Sat09/27/20 at 2015, For 1 dose
Maximum daily dose of acetaminophen is 3,000 mg from all sources in 24 hours.
[facility] Medication administered onsite magnesium sulfate in dextrose 5 % infusion (premix) 1 g [id number] [phone] 09/27/2020 06:15:00 AM EST 1 g Intravenous completed 1 g, Intravenous, Administer over 60 Minutes, Once, Sat09/27/20 at 0615, For 1 dose [facility] Medication administered onsite Magnesium Oxide 400 MG Oral Tablet Magnesium Oxide (MA G-OX) tablet 400 mg Magnesium Oxide (MAG-OX) tablet 400 mg 09/27/2020 12:45:00 AM EST 4 00 mg Oral completed 400 mg, Oral, Once, Sat at 0045, For 1 dose [facility] Medication administered onsite Acetaminophen 325 MG Oral Tablet Acetaminophen 325 MG Oral T ablet 09/27/2020 12:00:00 AM EST 650 mg Oral active Take 2 tablets by mouth every 6 (six) hours as needed for up to 10 days [facility] carvedilol 6.25 MG Oral Tablet Carvedilol 6.25 MG Oral Tablet (COREG) Carvedilol 6.25 MG Oral Tablet (COREG) 09/27/2020 12:00:00 AM EST 6.25 mg Oral active Take 1 tablet by mouth Two Times Daily [facility] Hydralazine Hydrochloride 25 MG Oral Tab let hydrALAZINE HCl 25 MG Oral Tablet (APRESOLINE) hydrALAZINE HCl 25 MG Oral Tablet (APRESOLINE) 02/02/2 021 12:00:00 AM EST 25 mg Oral active Take 1 tablet by mouth every 8 (eight) hours [facility] Isosorbide Dinitrate 20 MG Oral Tablet I sosorbide Dinitrate 20 MG Oral Tablet (ISORDIL) Isosorbide Dinitrate 20 MG Oral Tablet (ISORDIL) 09/27 12:00:00 AM EST 20 mg Oral active Take 1 tablet by mouth Three times daily [facility] Furosemide 40 MG Oral Tablet Furosemide 40 MG Oral Tab let (LASIX) Furosemide 40 MG Oral Tablet (LASIX) 09/27/2020 12:00:00 AM EST 40 mg Oral aborted Take 1 tablet by mouth daily [facility] Hydralazine Hydrochloride 25 MG Oral Tab let hydrALAZINE (APRESOLINE) 25 MG tablet hydrALAZINE (APRESOLINE) 25 MG tablet 09/27/2020 12:00:00 AM EST 25 mg Oral active Take 25 mg by mouth 3 (three) times a day [facility] Isosorbide Dinitrate 20 MG Oral Tablet i sosorbide dinitrate (ISORDIL) 20 MG tablet isosorbide dinitrate (ISORDIL) 20 MG tablet 09/27/2020 12:00:00 AM EST 20 mg Oral active Take 20 mg by mouth 3 (t hree) times a day [facility] carvedilol 6.25 MG Oral Tablet carvedilol (COREG) 6.25 MG tablet carvedilol (COREG) 6.25 MG tablet 09/27/2020 12:00:00 AM EST 6.25 mg Oral active Take 6.25 mg by mouth 2 (two) times a day [facility] carvedilol 6.25 MG Oral Tablet carvedilol (COREG) 6.25 MG tablet carvedilol (COREG) 6.25 MG tablet 09/27/2020 12:00:00 AM EST 1 {tbl} Oral aborted Take 1 tablet by mouth 2 (two) times a day [facility] Isosorbide Dinitrate 20 MG Oral Tablet i sosorbide dinitrate (ISORDIL) 20 MG tablet isosorbide dinitrate (ISORDIL) 20 MG tablet 09/27/2020 12:00:00 AM EST 1 {tbl} Oral aborted Take 1 tablet by mouth 3 (three) times a day [facility] sodium polystyrene (KAYEXALATE) powder 15 g [id number] 09/26/2020 11:45:00 PM EST 15 g Oral completed 15 g, Oral, Once, Sat09/26/20 at 2345, For 1 dose
Mix with 60 mL water and shake well.
[facility] Medication administered onsite carvedilol 6.25 MG Oral Tablet carvedilol (COREG) tabl et 6.25 mg carvedilol (COREG) tablet 6.25 mg 09/26/2020 09:00:00 PM EST 6.25 mg Oral active 6.25 mg, Oral, 2 Times Daily, First dose on Sat09/26/20 at 2100, For 30 days
Check vital signs before administering
[facility] Medication administered onsite Acetaminophen 325 MG Oral Tablet acetaminophen (TYLENO L) tablet 650 mg acetaminophen (TYLENOL) tablet 650 mg 09/26/2020 06:29:55 PM EST 65 0 mg Oral active 650 mg, Oral, E very 6 hours PRN, Mild Pain (Pain Scale Score 1- 3), Moderate Pain (Pain Scale Score 4-6), Starting Sat09/26/20 at 1829, For 30 days
Maximum daily dose of acetaminophen is 3,000 mg from all sources in 24 hours.
[facility] Medication administered onsite Hydralazine Hydrochloride 25 MG Oral Tab let hydrALAZINE (APRESOLINE) tablet 25 mg hydrALAZINE (APRESOLINE) tablet 25 mg 09/26/2020 05:00:00 PM EST 25 mg Oral active 25 mg, Oral, E very 8 hours Standard (3 times per day), First dose on Sat09/26/20 at 1700, For 30 days
Check vital signs before administering
[facility] Medication administered onsite Magnesium Oxide 400 MG Oral Tablet Magnesium Oxide (MA G-OX) tablet 400 mg Magnesium Oxide (MAG-OX) tablet 400 mg 09/26/2020 04:15:00 AM EST 4 00 mg Oral completed 400 mg, Oral, Once, Sat at 0415, For 1 dose [facility] Medication administered onsite Isosorbide Dinitrate 20 MG Oral Tablet i sosorbide dinitrate (ISORDIL) tablet 20 mg isosorbide dinitrate (ISORDIL) tablet 20 mg 09/25/2020 05:00:00 PM EST 20 mg Oral active 20 mg, Ora l, Three Times Daily Standard, First dose on 09/25/20 at 1700, For 30 days
Hazardous pharmaceutical waste - Black bin disposal.
[facility] Medication administered onsite Hydralazine Hydrochloride 20 MG/ML Injec table Solution hydrALAZINE (APRESOLINE) injection 10 mg hydrALAZINE (APRESOLINE) injection 10 mg 09/25/2020 01 :15:00 PM EST 10 mg Intravenous completed 10 mg, Intravenous, Once, 09/25/20 at 1315, For 1 dose
Dilute in 25-50 ml normal saline. Administer over 30 minutes.
[facility] Medication administered onsite Aspirin 81 MG Chewable Tablet aspirin chewable tablet 81 mg aspirin chewable tablet 81 mg 09/25/2020 09:00:00 AM EST 81 mg Oral activ e 81 mg, Oral, Daily Standard, First dose on 09/25/20 at 0900, For 30 days
Chew tablet before swallowing.
[facility] Medication administered onsite 10 ML Atropine Sulfate 0.1 MG/ML Prefilled Syringe atr opine injection 0.5 mg atropine injection 0.5 mg 09/25/2020 02:30:00 AM EST 0.5 mg Intrave nous completed 0.5 mg, Intravenous, Once, Sun at 0230, For 1 dose [facility] Medication administered onsite furosemide (LASIX) injection 20 mg [id number] 09/25/2020 02:30:00 AM EST 20 mg Intravenous completed 20 mg, I ntravenous, Once, 09/25/20 at 0230, For 1 dose
Notify provider if systolic blood pressure less than: 90 [facility] Medication administered onsite 10 ML Atropine Sulfate 0.1 MG/ML Prefilled Syringe atr opine 1 MG/10ML injection atropine 1 MG/10ML injection 09/25/2020 01:45:43 AM EST completed Starting 09/25/20 at 0145, For 1 dose
Esteban Page: cabinet override
[facility] Medication administered onsite Albuterol 1 MG/ML Inhalant Solution albu terol (PROVENTIL) CONCENTRATED 0.5 % nebulizer solution 20 mg albuterol (PROVENTIL) CONCENTRATED 0 .5 % nebulizer solution 20 mg 09/25/2020 01:30:00 AM EST 20 mg Nebulization completed 20 mg, Nebulization, Once, 09/25/20 at 0130, For 1 dose [facility] Medication administered onsite furosemide (LASIX) injection 20 mg [id number] 09/25/2020 01:30:00 AM EST 20 mg Intravenous completed 20 mg, I ntravenous, Once, 09/25/20 at 0130, For 1 dose
Notify provider if systolic blood pressure less than: 90 [facility] Medication administered onsite sodium phosphate infusion 6 mmol/100 mL (premix) 09/25 01:30:00 AM EST 6 mmol Intravenous completed 6 mmol, Intravenous, at 25 mL/hr, Once, 09/25/20 at 0130, For 1 dose
Slower infusion rate (e.g. over 4 to 6 hours) are recommended in patients with renal impairment and/or less severe hypophosp hatemia.
[facility] Medication administered onsite sennosides, INTERMEDIATE 8.6 MG Oral Tablet senna tablet 2 tablet sen na tablet 2 tablet 09/25/2020 01:30:00 AM EST 2 {tbl} Oral completed 2 tablet, Oral, Once, 09/25/20 at 0130, For 1 dose [facility] Medication administered onsite magnesium sulfate in dextrose 5 % infusion (premix) 1 g 0409 -6727-23 09/25/2020 01:30:00 AM EST 1 g Intravenous completed 1 g, Intravenous, Administer over 60 Minutes, Once, 09/25/20 at 0130, For 1 dose [facility] Medication administered onsite sodium polystyrene (KAYEXALATE) powder 15 g [id number] 09/25/2020 01:30:00 AM EST 15 g Oral completed 15 g, Oral, Once, 09/25/20 at 0130, For 1 dose
Mix with 60 mL water and shake well.
[facility] Medication administered onsite heparin (porcine) 5000 UNIT/ML injection 5,000 Units [id number] 09/24/2020 09:00:00 PM EST 5000 U Subcutaneous active 5,000 Units, Subcutaneous, 2 Times Daily, First dose on 09/24/20 at 2100, For 30 days [facility] Medication administered onsite 50 ML Magnesium Sulfate 40 MG/ML Injecti on magnesium sulfate infusion 2 g/50 mL (premix) magnesium sulfate infusion 2 g/50 mL (premix) 09/24/19 08:30:00 PM EST 2 g Intravenous completed 2 g, Intravenous, Administer over 60 Minutes, Once, 09/24/20 at 2030, For 1 dose [facility] Medication administered onsite sodium polystyrene (KAYEXALATE) powder 15 g [id number] 09/24/2020 08:15:00 PM EST 15 g Oral completed 15 g, Oral, Once, 09/24/20 at 2015, For 1 dose
Mix with 60 mL water and shake well.
[facility] Medication administered onsite Hydralazine Hydrochloride 10 MG Oral Tab let hydrALAZINE (APRESOLINE) tablet 10 mg hydrALAZINE (APRESOLINE) tablet 10 mg 09/24/2020 06:30:00 PM EST 10 mg Oral aborted 10 mg, Oral, E very 8 hours, First dose (after last modification) on 09/24/20 at 1830, For 30 days
Check vital signs before administering
[facility] Medication administered onsite furosemide (LASIX) injection 20 mg [id number] 09/24/2020 06:30:00 PM EST 20 mg Intravenous completed 20 mg, I ntravenous, Daily Standard, First dose on 09/24/20 at 1830, For 5 days
Notify provider if systolic blood pressure less than: 90 [facility] Medication administered onsite insulin lispro (HumaLOG) injection LOW DOSE EATING INS ULIN patients 1-8 Units [id number] 09/24/2020 06:15:00 PM EST U Subcutaneous aborted 1-8 Units, Subcutaneous, Three Times Daily-With Meals, First dose on 09/24/20 at 1815, For 30 days
Nursing MUST open the 'SQ Insulin Dosing Charts' Sidebar Report, or, the Patient Summary or Summary Report within the ED.
[facility] Medication administered onsite Glucose 0.417 MG/MG Oral Gel glucose (GLUTOSE) 40 % or al gel 15 g glucose (GLUTOSE) 40 % oral gel 15 g 09/24/2020 05:54:12 PM EST 15 g Oral active 15 g, Oral, PRN, Low blood s ugar, for gluose 55-69 mg/dl and able to take PO, Starting 09/24/20 at 1754, For 30 days [facility] Medication administered onsite Glucagon 1 MG Injection glucagon (human recombinant) ( GLUCAGEN) injection 1 mg glucagon (human recombinant) (GLUCAGEN) injection 1 mg 09/24/2020 05:54:12 PM EST 1 mg Intramuscular active 1 mg, Intramuscular, PRN, for glucose <55 without IV access, Starting 09/24/20 at 1754, For 30 days [facility] Medication administered onsite isoproterenol (ISUPREL) 1 mg in dextrose 5 % 250 mL (0.004 m g/mL) infusion 09/24/2020 05:45:00 PM EST 2 ug/min Intravenous aborted 2 mcg/min (30 mL/hr), Intravenous, at 30 mL/hr, Continuous, Starting 09/24/20 at 1745, For 30 days
Starting dose = 2 mcg/min Titrate to maintain HR > 60 Increase by 1-2 mcg/min Max Dose = 10 mcg/min
[facility] Medication administered onsite Hydralazine Hydrochloride 10 MG Oral Tab let hydrALAZINE (APRESOLINE) 10 MG tablet hydrALAZINE (APRESOLINE) 10 MG tablet 09/01/2020 12:00:00 AM EST 10 mg Oral active Take 1 tablet (10 mg total) by mouth 3 (three) times a day [facility] Furosemide 40 MG Oral Tablet furosemide (LASIX) 40 MG tablet furosemide (LASIX) 40 MG tablet 09/01/2020 12:00:00 AM EST 40 mg Oral activ e Take 1 tablet (40 mg total) by mouth daily [facility] Hydralazine Hydrochloride 10 MG Oral Tab let hydrALAZINE (APRESOLINE) 10 MG tablet hydrALAZINE (APRESOLINE) 10 MG tablet 08/13/2020 12:00:00 AM EST aborted [facility] 10 mg 07/07/2020 12:00:00 AM EST tablet 90 TAKE ONE TABLET BY MOUTH THREE TIMES A DAY TAKE ONE TABLET BY MOUTH THREE TIMES A DAY SOLD: 07/18/2020 [facility] 10 mg 07/07/2020 12:00:00 AM EST tablet 90 TAKE ONE TABLET BY MOUTH THREE TIMES A DAY TAKE ONE TABLET BY MOUTH THREE TIMES A DAY SOLD: 09/05/2020 [facility] 40 mg 07/01/2020 12:00:00 AM EST tablet 30 TAKE ONE TABLET BY MOUTH TWICE A DAY TAKE ONE TABLET BY MOUTH TWICE A DAY SOLD: 07/29/2020 [facility] 20 mg 07/01/2020 12:00:00 AM EST tablet 60 TAKE ONE TABLET BY MOUTH TWICE A DAY TAKE ONE TABLET BY MOUTH TWICE A DAY SOLD: 07/07/2020 [facility] 25 mg 07/01/2020 12:00:00 AM EST tablet 15 TAKE 1/2 TABLET BY MOUTH EVERY DAY TAKE 1/2 TABLET BY MOUTH EVERY DAY SOLD: 07/07/2020 [facility] 40 mg 07/01/2020 12:00:00 AM EST tablet 30 TAKE ONE TABLET BY MOUTH TWICE A DAY TAKE ONE TABLET BY MOUTH TWICE A DAY SOLD: 07/07/2020 [facility] 25 mg 07/01/2020 12:00:00 AM EST tablet 15 TAKE 1/2 TABLET BY MOUTH EVERY DAY TAKE 1/2 TABLET BY MOUTH EVERY DAY SOLD: 08/05/2020 [facility] 20 mg 07/01/2020 12:00:00 AM EST tablet 60 TAKE ONE TABLET BY MOUTH TWICE A DAY TAKE ONE TABLET BY MOUTH TWICE A DAY SOLD: 09/05/2020 [facility] 25 mg 07/01/2020 12:00:00 AM EST tablet 15 TAKE 1/2 TABLET BY MOUTH EVERY DAY TAKE 1/2 TABLET BY MOUTH EVERY DAY SOLD: 11/06/2020 [facility] 25 mg 07/01/2020 12:00:00 AM EST tablet 15 TAKE 1/2 TABLET BY MOUTH EVERY DAY TAKE 1/2 TABLET BY MOUTH EVERY DAY SOLD: 10/05/2020 [facility] 20 mg 07/01/2020 12:00:00 AM EST tablet 60 TAKE ONE TABLET BY MOUTH TWICE A DAY TAKE ONE TABLET BY MOUTH TWICE A DAY SOLD: 08/05/2020 [facility] 25 mg 07/01/2020 12:00:00 AM EST tablet 15 TAKE 1/2 TABLET BY MOUTH EVERY DAY TAKE 1/2 TABLET BY MOUTH EVERY DAY SOLD: 09/06/2020 [facility] Isosorbide Dinitrate 20 MG Oral Tablet Isosorbide Dinitrate 06/13/2020 12:00:00 AM EDT ORAL completed [facility] ([facility]) Isosorbide Mononitrate 20 MG Oral Tablet Isosorbide Mononitr ate 06/13/2020 12:00:00 AM EDT ORAL active M [facility] ([facility]) 10 mg 06/08/2020 12:00:00 AM EDT tablet 90 TAKE ONE TABLET BY MOUTH THREE TIMES A DAY TAKE ONE TABLET BY MOUTH THREE TIMES A DAY SOLD: 06/10/2020 [facility] Hydralazine Hydrochloride 10 MG Oral Tab let hydrALAZINE (APRESOLINE) 10 MG tablet hydrALAZINE (APRESOLINE) 10 MG tablet 06/07/2020 12:00:00 AM EDT 10 mg Oral active Take 1 tablet (10 mg total) by mouth 3 (three) times a day [facility] 40 mg 06/02/2020 12:00:00 AM EDT tablet 60 TAKE 1 TABLET [40MG] BY MOUTH TWO TIMES A DAY AT 9:00AM AND 5:00PM TAKE 1 TABLET [40MG] BY MOUTH TWO TIMES A DAY AT 9:00AM AND 5:00PM SOLD: 06/03/2020 [facility] 20 mg 06/02/2020 12:00:00 AM EDT tablet 60 TAKE 1 TABLET [20MG] BY MOUTH TWO TIMES A DAY TAKE 1 TABLET [20MG] BY MOUTH TWO TIMES A DAY SOLD: 06/03/2020 [facility] Spironolactone 25 MG Oral Tablet spironolactone (ALDAC TONE) 25 MG tablet spironolactone (ALDACTONE) 25 MG tablet 06/02/2020 12:00:00 AM EDT 0.5 {tbl} Oral active Take 0.5 tablets by mouth daily [facility] Furosemide 40 MG Oral Tablet furosemide (LASIX) 40 MG tablet furosemide (LASIX) 40 MG tablet 06/02/2020 12:00:00 AM EDT 60 mg Oral activ e Take 60 mg by mouth daily [facility] 25 mg 06/02/2020 12:00:00 AM EDT tablet 15 TAKE 1/2 TABLET BY MOUTH DAILY TAKE 1/2 TABLET BY MOUTH DAILY SOLD: 06/03/2020 [facility] Vitamin B 12 1 MG/ML Injectable Solution cyanocobalami n 1000 MCG/ML injection cyanocobalamin 1000 MCG/ML injection 05/06/2020 12:00:00 AM EDT active INJECT 1ML INTRAMUSCULARLY EVERY 10 DAYS [facility] 20 mg 04/11/2020 12:00:00 AM EDT capsule,delayed release (DR/EC) 90 TAKE ONE CAPSULE BY MOUTH EVERY DAY TAKE ONE CAPSULE BY MOUTH EVERY DAY SOLD: 04/18/2020 [facility] 20 mg 04/11/2020 12:00:00 AM EDT capsule,delayed release (DR/EC) 90 TAKE ONE CAPSULE BY MOUTH EVERY DAY TAKE ONE CAPSULE BY MOUTH EVERY DAY SOLD: 10/15/2020 [facility] 20 mg 04/11/2020 12:00:00 AM EDT capsule,delayed release (DR/EC) 90 TAKE ONE CAPSULE BY MOUTH EVERY DAY TAKE ONE CAPSULE BY MOUTH EVERY DAY SOLD: 07/18/2020 [facility] 20 mg 04/11/2020 12:00:00 AM EDT capsule,delayed release (DR/EC) 90 TAKE ONE CAPSULE BY MOUTH EVERY DAY TAKE ONE CAPSULE BY MOUTH EVERY DAY SOLD: 12/28/2020 [facility] Omeprazole 20 MG Delayed Release Oral Ca psule omeprazole (PRILOSEC) 20 MG capsule omeprazole (PRILOSEC) 20 MG capsule 04/10/2020 12:00:00 AM EDT active as needed [facility] 24 HR Isosorbide Mononitrate 30 MG Extended Release Or al Tablet ISOSORBIDE MONONITRATE 03/31/2020 12:00:00 AM EDT tablet extended release 24 hr 30 TAKE ONE TABLET BY MOUTH AT BEDTIME TAKE ONE TABLET BY MOUTH AT BEDTIME SOLD: 06/10/2020 [facility] 24 HR Isosorbide Mononitrate 30 MG Extended Release Or al Tablet Isosorbide Mononitrate ER 03/31/2020 12:00:00 AM EDT ORAL complete d [facility] ([facility]) 24 HR Isosorbide Mononitrate 30 MG Extended Release Or al Tablet ISOSORBIDE MONONITRATE 03/31/2020 12:00:00 AM EDT tablet extended release 24 hr 30 TAKE ONE TABLET BY MOUTH AT BEDTIME TAKE ONE TABLET BY MOUTH AT BEDTIME SOLD: 05/06/2020 [facility] 1,000 mcg/mL 03/29/2020 12:00:00 AM EDT solution 3 INJECT 1ML INTRAMUSCULARLY EVERY 10 DAYS INJECT 1ML INTRAMUSCULARLY EVERY 10 DAYS SOLD: 03/04/2021 [facility] 1,000 mcg/mL 03/29/2020 12:00:00 AM EDT solution 3 INJECT 1ML INTRAMUSCULARLY EVERY 10 DAYS INJECT 1ML INTRAMUSCULARLY EVERY 10 DAYS SOLD: 11/07/2020 [facility] 1,000 mcg/mL 03/29/2020 12:00:00 AM EDT solution 3 INJECT 1ML INTRAMUSCULARLY EVERY 10 DAYS INJECT 1ML INTRAMUSCULARLY EVERY 10 DAYS SOLD: 08/05/2020 [facility] 1,000 mcg/mL 03/29/2020 12:00:00 AM EDT solution 3 INJECT 1ML INTRAMUSCULARLY EVERY 10 DAYS INJECT 1ML INTRAMUSCULARLY EVERY 10 DAYS SOLD: 12/02/2020 [facility] 1,000 mcg/mL 03/29/2020 12:00:00 AM [...] INJECT 1ML INTRAMUSCULARLY EVERY 10 DAYS SOLD: 12/28/2020 [facility] 1,000 mcg/mL 03/29/2020 12:00:00 AM EDT solution 3 INJECT 1ML INTRAMUSCULARLY EVERY 10 DAYS INJECT 1ML INTRAMUSCULARLY EVERY 10 DAYS SOLD: 09/06/2020 [facility] 1,000 mcg/mL 03/29/2020 12:00:00 AM EDT solution 3 INJECT 1ML INTRAMUSCULARLY EVERY 10 DAYS INJECT 1ML INTRAMUSCULARLY EVERY 10 DAYS SOLD: 02/01/2021 [facility] 1,000 mcg/mL 03/29/2020 12:00:00 AM EDT solution 3 INJECT 1ML INTRAMUSCULARLY EVERY 10 DAYS INJECT 1ML INTRAMUSCULARLY EVERY 10 DAYS SOLD: 09/30/2020 [facility] 1,000 mcg/mL 03/29/2020 12:00:00 AM EDT solution 3 INJECT 1ML INTRAMUSCULARLY EVERY 10 DAYS INJECT 1ML INTRAMUSCULARLY EVERY 10 DAYS SOLD: 05/07/2020 [facility] Isosorbide Dinitrate 20 MG Oral Tablet i sosorbide dinitrate (ISORDIL) 20 MG tablet isosorbide dinitrate (ISORDIL) 20 MG tablet 20 mg Oral active Take 20 mg by mouth 2 (two) times a day [facility] Spironolactone 25 MG Oral Tablet Spironolactone 25 MG Oral Tablet (ALDACTONE) Spironolactone 25 MG Oral Tablet (ALDACTONE) 12.5 mg Oral aborted Take 12.5 mg by mouth daily [facility] Isosorbide Mononitrate 20 MG Oral Tablet Isosorbide Mononitrate 20 MG Oral Tablet (ISMO) Isosorbide Mononitrate 20 MG Oral Tablet (ISMO) 20 mg Oral aborted Take 20 mg by mouth Two Time s Daily [facility] Insurance Providers Payer name Policy type / Coverage type Policy ID Covered libertarian ID Covered libertarian's relationship to mejia Policy Mejia Plan Information MEDICARE [id number] xxxxxxxxxxx [id number] MEDICARE [id number] SP [id number] Medicare Primary [id number] Self [id number] MEDICARE [id number] SP [id number] MEDICARE [id number] SP [id number] MEDICARE [id number] S [id number] [employer] Medicare Primary [id number] Self [id number] Medicare [employer] Medicare Primary [id number] Self [id number] Medicare [employer] Medicare Primary [id number] Self [id number] MEDICARE A [id number] Self [id number] MEDICARE [id number] Elsa [id number] [facility] GE PARTB [id number] SP [id number] [facility] [id number] xxxxxxxxx [id number] [facility] [id number] Elsa [id number] [facility] U [id number] Self [id number] [facility] Medigap Part B [id number] Self Medicare [address] Medicare Primary [id number] Self [facility] INDEMNITY O [id number] S [id number] [employer] O [id number] S [id number] MEDICARE -O/P [id number] [employer] RET RR [id number] SP [id number] MEDICARE [id number] SP [id number] [employer] RET RR [id number] SP [id number] MEDICARE [id number] SP [id number] [employer] RET RR [id number] SP [id number] [employer] MEDICARE C [id number] S [id number] [facility] GE PAR O [id number] S [id number] MEDICARE C [id number] S [id number] [facility] Commercial Medigap Part B [id number] Self [id number] Medicare [employer] Medicare Primary [id number] Self [id number] [facility] Medigap Part B [id number] Self [id number] Medicare [employer] Medicare Primary [id number] Self [id number] [facility] GE PARTB [id number] SP [id number] [employer] MEDICARE C [id number] S [id number] [facility] GE PARTB [id number] SP [id number] Problems, Conditions, and Diagnoses Code Display Name Description Problem Type Effective Dates Data Source(s) 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 Chronic combined systolic (congestive) a Diagnosis 01/04/2021 10:54:41 AM EDT [facility] R79.89 Other specified abnormal findings of blo od chemistry Other specified abnormal findings of blo Diagnosis 11/30/2020 10:11:54 AM EDT [facility] T81.49XA Infection following a proced ure, other surgical site, initial encounter Infection following a procedure, other s Diagnosis 021 10:11:54 AM EDT [facility] R07.89 Other chest pain Other chest pain Diagnosis 11/30/2020 10 :11:54 AM EDT [facility] Z95.0 Presence of cardiac pacemaker Presence of cardiac pace maker Diagnosis 11/30/2020 10:11:54 AM EDT [facility] N18.4 Chronic kidney disease, stage 4 (severe) Chronic kidney disease, stage 4 (severe) Diagnosis 11/30/2020 10:11:54 AM EDT [facility] I44.2 Atrioventricular block, complete Atrioventricula r block, complete Diagnosis 11/30/2020 10:11:54 AM EDT [facility] [place] E03.9 Hypothyroidism, unspecified Hypothyroidism, unspecifie d Diagnosis 10/27/2020 02:16:53 PM EST [facility] R94.6 Abnormal results of thyroid function [place] dies Abnormal results of thyroid function [place] Diagnosis 10/20/2020 08:35:06 AM [facility] R06.00 Dyspnea, unspecified Dyspnea, unspecified Diagnosis 10/06/2020 08:25:42 AM [facility] I10 Essential (primary) hypertension Essential (primary) h ypertension Diagnosis 10/06/2020 08:25:42 AM [facility] D64.9 Anemia, unspecified Anemia, unspecified Diagnosis 0 10/06/2020 08:25:42 AM [facility] I44.2 Atrioventricular block, complete Atrioventricula r block, complete Diagnosis 09/24/2020 06:36:49 PM [facility] 3rd degree AV block, 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, needs biventricular pacer placed Diagnosis 09/24/2020 05:25:00 PM [facility] 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 Acquired absence of other specified parts of digestive tract Problem 01:00:00 AM EDT [facility] ([facility] ) E86.0 Dehydration Dehydration Problem 04/16/2021 01:00:00 AM EDT [facility] ([facility]) 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, or unspecified chronic kidney disease Hypertensive heart and chronic kidney di sease with heart failure and stage 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, or unspecified chronic kidney disease Problem 04/16/2021 01:00:00 AM EDT [facility] ([facility]) I50.22 Chronic systolic (congestive) heart fail ure Chronic systolic (congestive) heart failure Problem 04/16/2021 01:00:00 AM EDT [facility] ([facility]) N18.4 Chronic kidney disease, stage 4 (severe) Chronic kidney disease, stage 4 (severe) Problem 04/16/2021 01:00:00 AM EDT [facility] ([facility]) E87.2 Acidosis Acidosis Problem 04/16/2021 01:00:00 AM ED T [facility] ([facility]) N17.9 Acute kidney failure, unspecified Acute kidney f ailure, unspecified Problem 04/16/2021 01:00:00 AM EDT [facility] ([facility]) D51.0 Vitamin B12 deficiency anemia due to int rinsic factor deficiency Vitamin B12 deficiency anemia due to intrinsic factor deficiency Problem 04/16/2021 01:00:00 AM EDT [facility] ([facility] ) 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 myocardial infarction Pr oblem 04/16/2021 01:00:00 AM EDT [facility] ([facility] ) G43.909 Migraine, unspecified, not intractable, without status migrainosus Migraine, unspecified, not intractable, without status migrainosus Problem 04/16/2021 01:00:00 AM EDT [facility] ([facility] ) Z95.0 Presence of cardiac pacemaker Presence of cardiac pace maker Problem 04/16/2021 01:00:00 AM EDT [facility] ([facility] ) Z91.81 History of falling History of falling Problem 01:00:00 AM EDT [facility] ([facility]) Z79.82 skilled nursing (current) use of aspirin skilled nursing (cu rrent) use of aspirin Problem 04/16/2021 01:00:00 AM EDT [facility] ([facility]) 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), 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 transient ischemic attack (TIA), and cerebral infarction without residual deficits Problem 04/16/2021 01:00:00 AM EDT [facility] ([facility] ) Z87.891 Personal history of nicotine dependence Personal history of nicotine dependence Problem 04/16/2021 01:00:00 AM EDT [facility] ([facility]) 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, 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, recurrent Problem 04/10/2021 01:00:00 AM E DT [facility] ([facility]) R79.89 Abnormal thyroid blood test Abnormal thyroid blood lalita t [id number] 10/20/2020 12:00:00 AM [facility] R07.89 Other chest pain Other chest pain [id number] 10/14/2020 12 :00:00 AM [facility] R06.00 TYLER (dyspnea on exertion) TYLER (dyspnea on exertion) 64 [id number] 10/06/2020 12:00:00 AM [facility] T81.49XA Incisional infection Incisional infection [id number] 10/06/2020 12:00:00 AM EST [facility] Z95.0 Pacemaker Pacemaker [id number] 10/06/2020 12:00:00 AM ES T [facility] 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 Third degree AV block [id number] 10/06/2020 12:00:00 AM EST [facility] I10 Essential hypertension Essential hypertension [id number] 06/07/2020 12:00:00 AM EDT [facility] 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 4 chronic kidney disease [id number] 06/07/2020 12:00:00 AM EDT [facility] 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 [id number] 06/07/2020 12:00:00 AM EDT [facility] Surgeries/Procedures Procedure Description Date Indications Data Source(s) Med: Lidocaine Jelly 2% 6ml Intravesically (Glydo) 05/31/2021 12:00:00 AM EDT [facility] ([facility]) TCM-Mod 04/19/2021 12:00:00 AM EDT Noelle KRAUS ([facility]) OFFICE OUTPATIENT VISIT 25 MINUTES 12/19/2020 12:00:00 AM EDT [place] ([facility]) ECG ROUTINE ECG W/LEAST 12 LDS W/I&R <td>POCT AMB EKG</td><td>Routine</td><td>10/20/2020 11:27 AM EST</td><td> Other chest pain</td><td> </td> 10/20/2020 04:27:00 PM EST Other chest pain [facility] Other chest pain BLOOD COUNT COMPLETE AUTO&AUTO DIFRNTL WBC COUNT <td>C BC AND DIFFERENTIAL</td><td>Routine</td><td>10/09/2020</td><td></td><td> </td> 10/09/2020 12:00:00 AM EST [facility] HEPATIC FUNCTION PANEL <td>HEPATIC FUNCTION PANEL</td><td>Routine</td><td>10/09/2020</td><td></td><td> </td> 10/09/2020 12:00:00 AM EST [facility] BASIC METABOLIC PANEL CALCIUM TOTAL <td>BASIC METABOLI C PANEL</td><td>Routine</td><td>10/09/2020</td><td></td><td> </td> 10/09/2020 12:00:00 AM EST [facility] POCT GLUCOSE, DOCKED <td>POCT GLUCOSE, DOCKED</td ><td>Routine</td><td>09/28/2020 11:33 AM EST</td><td></td><td> </td> 09/28/2020 11:33:00 AM [facility] POCT GLUCOSE, DOCKED <td>POCT GLUCOSE, DOCKED</td ><td>Routine</td><td>09/28/2020 7:50 AM EST</td><td></td><td> </td> 09/28/2020 07:50:00 AM [facility] BLOOD COUNT COMPLETE AUTOMATED <td>CBC</td><td>Routine </td><td>09/28/2020 5:18 AM EST</td><td></td><td> </td> 09/28/2020 05:18:00 AM [facility] PHOSPHORUS INORGANIC <td>PHOSPHORUS LEVEL</td><td >Routine</td><td>09/28/2020 5:18 AM EST</td><td></td><td> </td> 09/28/2020 05:18:00 AM [facility] MAGNESIUM <td>MAGNESIUM LEVEL</td><td> Routine</td><td>09/28/2020 5:18 AM EST</td><td></td><td> </td> 09/28/2020 05:18:00 AM [facility] BASIC METABOLIC PANEL CALCIUM TOTAL <td>BASIC METABOLI C PANEL</td><td>Routine</td><td>09/28/2020 5:18 AM EST</td><td></td><td> </td> 09/28/2020 05:18:00 AM [facility] XR CHEST FRONTAL ONLY [id number] <td>XR CHEST FRONTAL ONLY [id number]</td><td>Routine</td><td>09/27/2020 10:46 PM EST</td><td></td><td> </td> 09/27/2020 10:46:50 PM [facility] GLUCOSE QUANTITATIVE BLOOD XCPT REAGENT STRIP <td>POCT GLUCOSE, DOCKED</td><td>Routine</td><td>09/27/2020 9:53 PM EST</td><td></td><td> </td> 09/27/2020 09:53:00 PM [facility] TROPONIN QUANTITATIVE <td>TROPONIN T</td><td>Routi ne</td><td>09/27/2020 8:36 PM EST</td><td></td><td> </td> 09/27/2020 08:36:00 PM [facility] EKG 12-LEAD - [facility] REPORT <td>EKG 12-LEAD - CMAXX REPORT</td><td></td><td>09/27/2020 7:38 PM EST</td><td></td><td></td> 09/27/2020 07:38:26 PM [facility] EKG 12-LEAD - CMAXX REPORT <td>EKG 12-LEAD - CMAXX REPORT</td><td></td><td>09/27/2020 7:38 PM EST</td><td></td><td></td> 09/27/2020 07:38:26 PM [facility] EKG 12-LEAD <td>EKG 12-LEAD</td><td>Rout ine</td><td>09/27/2020 7:38 PM EST</td><td></td><td></td> 09/27/2020 07:38:26 PM EST [facility] EKG 12-LEAD <td>EKG 12-LEAD</td><td>Rout ine</td><td>09/27/2020 7:38 PM EST</td><td></td><td> </td> 09/27/2020 07:38:26 PM [facility] GLUCOSE QUANTITATIVE BLOOD XCPT REAGENT STRIP <td>POCT GLUCOSE, DOCKED</td><td>Routine</td><td>09/27/2020 5:05 PM EST</td><td></td><td> </td> 09/27/2020 05:05:00 PM [facility] CARDIAC DEVICE (IMPLANT) CHECK <td>CARDIAC DEVICE (IMP LANT) CHECK</td><td>Routine</td><td>09/27/2020 12:33 PM EST</td><td></td><td></td> 09/27/2020 12:33:11 PM [facility] GLUCOSE QUANTITATIVE BLOOD XCPT REAGENT STRIP <td>POCT GLUCOSE, DOCKED</td><td>Routine</td><td>09/27/2020 12:15 PM EST</td><td></td><td> </td> 09/27/2020 12:15:00 PM [facility] RADIOLOGY REPORT <td>RADIOLOGY REPORT</td><td ></td><td>09/27/2020 10:53 AM EST</td><td></td><td></td> 09/27/2020 10:53:55 AM [facility] CARDIAC REPORT <td>CARDIAC REPORT</td><td>< /td><td>09/27/2020 10:53 AM EST</td><td></td><td></td> 09/27/2020 10:53:54 AM [facility] CARDIAC REPORT <td>CARDIAC REPORT</td><td>< /td><td>09/27/2020 10:53 AM EST</td><td></td><td></td> 09/27/2020 10:53:54 AM [facility] CARDIAC REPORT <td>CARDIAC REPORT</td><td>< /td><td>09/27/2020 10:53 AM EST</td><td></td><td></td> 09/27/2020 10:53:53 AM [facility] GLUCOSE QUANTITATIVE BLOOD XCPT REAGENT STRIP <td>POCT GLUCOSE, DOCKED</td><td>Routine</td><td>09/27/2020 8:52 AM EST</td><td></td><td> </td> 09/27/2020 08:52:00 AM [facility] BLOOD COUNT COMPLETE AUTOMATED <td>CBC</td><td>Routine </td><td>09/27/2020 5:01 AM EST</td><td></td><td> </td> 09/27/2020 05:01:00 AM [facility] PHOSPHORUS INORGANIC <td>PHOSPHORUS LEVEL</td><td >Routine</td><td>09/27/2020 5:01 AM EST</td><td></td><td> </td> 09/27/2020 05:01:00 AM [facility] MAGNESIUM <td>MAGNESIUM LEVEL</td><td> Routine</td><td>09/27/2020 5:01 AM EST</td><td></td><td> </td> 09/27/2020 05:01:00 AM [facility] BASIC METABOLIC PANEL CALCIUM TOTAL <td>BASIC METABOLI C PANEL</td><td>Routine</td><td>09/27/2020 5:01 AM EST</td><td></td><td> </td> 09/27/2020 05:01:00 AM [facility] EKG 12-LEAD - CMAXX REPORT <td>EKG 12-LEAD - CMAXX REPORT</td><td></td><td>09/27/2020 12:29 AM EST</td><td></td><td></td> 09/27/2020 12:29:01 AM [facility] EKG 12-LEAD - CMAXX REPORT <td>EKG 12-LEAD - CMAXX REPORT</td><td></td><td>09/27/2020 12:29 AM EST</td><td></td><td></td> 09/27/2020 12:29:01 AM [facility] EKG 12-LEAD <td>EKG 12-LEAD</td><td>Rout ine</td><td>09/27/2020 12:29 AM EST</td><td></td><td> </td> 09/27/2020 12:29:01 AM [facility] MAGNESIUM <td>MAGNESIUM LEVEL</td><td> Routine</td><td>09/26/2020 10:03 PM EST</td><td></td><td> </td> 09/26/2020 10:03:00 PM [facility] BASIC METABOLIC PANEL CALCIUM TOTAL <td>BASIC METABOLI C PANEL</td><td>Routine</td><td>09/26/2020 10:03 PM EST</td><td></td><td> </td> 09/26/2020 10:03:00 PM [facility] GLUCOSE QUANTITATIVE BLOOD XCPT REAGENT STRIP <td>POCT GLUCOSE, DOCKED</td><td>Routine</td><td>09/26/2020 8:30 PM EST</td><td></td><td> </td> 09/26/2020 08:30:00 PM [facility] PHOSPHORUS INORGANIC <td>PHOSPHORUS LEVEL</td><td >Routine</td><td>09/26/2020 8:30 PM EST</td><td></td><td> </td> 09/26/2020 08:30:00 PM [facility] MAGNESIUM <td>MAGNESIUM LEVEL</td><td> Routine</td><td>09/26/2020 8:30 PM EST</td><td></td><td> </td> 09/26/2020 08:30:00 PM [facility] BASIC METABOLIC PANEL CALCIUM TOTAL <td>BASIC METABOLI C PANEL</td><td>Routine</td><td>09/26/2020 8:30 PM EST</td><td></td><td> </td> 09/26/2020 08:30:00 PM [facility] GLUCOSE QUANTITATIVE BLOOD XCPT REAGENT STRIP <td>POCT GLUCOSE, DOCKED</td><td>Routine</td><td>09/26/2020 5:19 PM EST</td><td></td><td> </td> 09/26/2020 05:19:00 PM [facility] XR CHEST FRONTAL ONLY [id number] <td>XR CHEST FRONTAL ONLY [id number]</td><td>STAT</td><td>09/26/2020 2:47 PM EST</td><td></td><td> </td> 09/26/2020 02:47:00 PM EST [facility] INSERTION/REPLACEMENT, PERMANENT PACEMAK ER W/TRANSVENOUS ELECTRODE(S) ATRIAL AND VENTRICULAR <td>INSERTION/REPLACEMENT, PERMANENT PAC EMAKER W/TRANSVENOUS ELECTRODE(S) ATRIAL AND VENTRICULAR</td><td></td><td>09/26/2020 12:10 PM EST</td><td> CHB (complete heart block)</td><td></td> 09/26/2020 12:10:00 PM EST - 09/26/2020 02:36:00 PM EST CHB (complete heart block) [facility] CHB (complete heart block) TCAT INSJ/RPL PERM LEADLESS PACEMAKER RV W/IMG <td>TCA T INSJ/RPL PERM LEADLESS PACEMAKER RV W/IMG</td><td></td><td>09/26/2020 12:10 PM EST</td><td> CHB (complete heart block)</td><td></td> 09/26/2020 12:10:00 PM EST - 09/26/2020 02:36:00 PM EST CHB (complete heart block) [facility] CHB (complete heart block) EP LAB PROCEDURE LOG <td>EP LAB PROCEDURE LOG</td ><td></td><td>09/26/2020 11:24 AM EST</td><td></td><td></td> 09/26/2020 11:24:40 AM EST [facility] EP LAB PROCEDURE <td>EP LAB PROCEDURE</td><td >Routine</td><td>09/26/2020 11:24 AM EST</td><td></td><td></td> 09/26/2020 11:24:15 AM EST [facility] ECHO TTHRC R-T 2D W/WOM-MODE COMPL SPEC&COLR DOP <td>E CHOCARDIOGRAM 2D COMPLETE</td><td>Routine</td><td>09/26/2020 9:54 AM EST</td><td></td><td> </td> 09/26/2020 09:54:35 AM [facility] GLUCOSE QUANTITATIVE BLOOD XCPT REAGENT STRIP <td>POCT GLUCOSE, DOCKED</td><td>Routine</td><td>09/26/2020 6:06 AM EST</td><td></td><td> </td> 09/26/2020 06:06:00 AM [facility] BLOOD COUNT COMPLETE AUTOMATED <td>CBC</td><td>Routine </td><td>09/26/2020 3:18 AM EST</td><td></td><td> </td> 09/26/2020 03:18:00 AM [facility] PHOSPHORUS INORGANIC <td>PHOSPHORUS LEVEL</td><td >Routine</td><td>09/26/2020 3:18 AM EST</td><td></td><td> </td> 09/26/2020 03:18:00 AM [facility] MAGNESIUM <td>MAGNESIUM LEVEL</td><td> Routine</td><td>09/26/2020 3:18 AM EST</td><td></td><td> </td> 09/26/2020 03:18:00 AM [facility] BASIC METABOLIC PANEL CALCIUM TOTAL <td>BASIC METABOLI C PANEL</td><td>Routine</td><td>09/26/2020 3:18 AM EST</td><td></td><td> </td> 09/26/2020 03:18:00 AM [facility] GLUCOSE QUANTITATIVE BLOOD XCPT REAGENT STRIP <td>POCT GLUCOSE, DOCKED</td><td>Routine</td><td>09/25/2020 9:57 PM EST</td><td></td><td> </td> 09/25/2020 09:57:00 PM [facility] GLUCOSE QUANTITATIVE BLOOD XCPT REAGENT STRIP <td>POCT GLUCOSE, DOCKED</td><td>Routine</td><td>09/25/2020 6:14 PM EST</td><td></td><td> </td> 09/25/2020 06:14:00 PM [facility] GLUCOSE QUANTITATIVE BLOOD XCPT REAGENT STRIP <td>POCT GLUCOSE, DOCKED</td><td>Routine</td><td>09/25/2020 5:33 PM EST</td><td></td><td> </td> 09/25/2020 05:33:00 PM [facility] GLUCOSE QUANTITATIVE BLOOD XCPT REAGENT STRIP <td>POCT GLUCOSE, DOCKED</td><td>Routine</td><td>09/25/2020 5:11 PM EST</td><td></td><td> </td> 09/25/2020 05:11:00 PM [facility] GLUCOSE QUANTITATIVE BLOOD XCPT REAGENT STRIP <td>POCT GLUCOSE, DOCKED</td><td>Routine</td><td>09/25/2020 5:08 PM EST</td><td></td><td> </td> 09/25/2020 05:08:00 PM [facility] TROPONIN QUANTITATIVE <td>TROPONIN T</td><td>Routi ne</td><td>09/25/2020 3:29 PM EST</td><td></td><td> </td> 09/25/2020 03:29:00 PM [facility] GLUCOSE QUANTITATIVE BLOOD XCPT REAGENT STRIP <td>POCT GLUCOSE, DOCKED</td><td>Routine</td><td>09/25/2020 12:26 PM EST</td><td></td><td> </td> 09/25/2020 12:26:00 PM [facility] GLUCOSE QUANTITATIVE BLOOD XCPT REAGENT STRIP <td>POCT GLUCOSE, DOCKED</td><td>Routine</td><td>09/25/2020 8:39 AM EST</td><td></td><td> </td> 09/25/2020 08:39:00 AM [facility] GLUCOSE QUANTITATIVE BLOOD XCPT REAGENT STRIP <td>POCT GLUCOSE, DOCKED</td><td>Routine</td><td>09/25/2020 5:20 AM EST</td><td></td><td> </td> 09/25/2020 05:20:00 AM [facility] BLOOD COUNT COMPLETE AUTOMATED <td>CBC</td><td>Routine </td><td>09/25/2020 5:20 AM EST</td><td></td><td> </td> 09/25/2020 05:20:00 AM [facility] PHOSPHORUS INORGANIC <td>PHOSPHORUS LEVEL</td><td >Routine</td><td>09/25/2020 5:20 AM EST</td><td></td><td> </td> 09/25/2020 05:20:00 AM [facility] MAGNESIUM <td>MAGNESIUM LEVEL</td><td> Routine</td><td>09/25/2020 5:20 AM EST</td><td></td><td> </td> 09/25/2020 05:20:00 AM [facility] BASIC METABOLIC PANEL CALCIUM TOTAL <td>BASIC METABOLI C PANEL</td><td>Routine</td><td>09/25/2020 5:20 AM EST</td><td></td><td> </td> 09/25/2020 05:20:00 AM [facility] GLUCOSE QUANTITATIVE BLOOD XCPT REAGENT STRIP <td>POCT GLUCOSE, DOCKED</td><td>Routine</td><td>09/25/2020 4:27 AM EST</td><td></td><td> </td> 09/25/2020 04:27:00 AM [facility] GLUCOSE QUANTITATIVE BLOOD XCPT REAGENT STRIP <td>POCT GLUCOSE, DOCKED</td><td>Routine</td><td>09/25/2020 3:48 AM EST</td><td></td><td> </td> 09/25/2020 03:48:00 AM [facility] GLUCOSE QUANTITATIVE BLOOD XCPT REAGENT STRIP <td>POCT GLUCOSE, DOCKED</td><td>Routine</td><td>09/25/2020 3:17 AM EST</td><td></td><td> </td> 09/25/2020 03:17:00 AM [facility] GLUCOSE QUANTITATIVE BLOOD XCPT REAGENT STRIP <td>POCT GLUCOSE, DOCKED</td><td>Routine</td><td>09/25/2020 2:56 AM EST</td><td></td><td> </td> 09/25/2020 02:56:00 AM [facility] EKG 12-LEAD - CMAXX REPORT <td>EKG 12-LEAD - CMAXX REPORT</td><td></td><td>09/25/2020 2:00 AM EST</td><td></td><td></td> 09/25/2020 02:00:09 AM [facility] EKG 12-LEAD - CMAXX REPORT <td>EKG 12-LEAD - CMAXX REPORT</td><td></td><td>09/25/2020 2:00 AM EST</td><td></td><td></td> 09/25/2020 02:00:09 AM [facility] EKG 12-LEAD <td>EKG 12-LEAD</td><td>Rout ine</td><td>09/25/2020 2:00 AM EST</td><td></td><td> </td> 09/25/2020 02:00:09 AM [facility] BLOOD COUNT COMPLETE AUTOMATED <td>CBC</td><td>Routine </td><td>09/25/2020 12:35 AM EST</td><td></td><td> </td> 09/25/2020 12:35:00 AM [facility] PHOSPHORUS INORGANIC <td>PHOSPHORUS LEVEL</td><td >Routine</td><td>09/25/2020 12:35 AM EST</td><td></td><td> </td> 09/25/2020 12:35:00 AM [facility] MAGNESIUM <td>MAGNESIUM LEVEL</td><td> Routine</td><td>09/25/2020 12:35 AM EST</td><td></td><td> </td> 09/25/2020 12:35:00 AM [facility] BASIC METABOLIC PANEL CALCIUM TOTAL <td>BASIC METABOLI C PANEL</td><td>Routine</td><td>09/25/2020 12:35 AM EST</td><td></td><td> </td> 09/25/2020 12:35:00 AM [facility] GLUCOSE QUANTITATIVE BLOOD XCPT REAGENT STRIP <td>POCT GLUCOSE, DOCKED</td><td>Routine</td><td>09/25/2020 12:29 AM EST</td><td></td><td> </td> 09/25/2020 12:29:00 AM [facility] GLUCOSE QUANTITATIVE BLOOD XCPT REAGENT STRIP <td>POCT GLUCOSE, DOCKED</td><td>Routine</td><td>09/24/2020 11:12 PM EST</td><td></td><td> </td> 09/24/2020 11:12:00 PM [facility] COVID-19 PCR <td>COVID-19 PCR</td><td>Rou natanael</td><td>09/24/2020 10:27 PM EST</td><td></td><td> </td> 09/24/2020 10:27:00 PM [facility] GLUCOSE QUANTITATIVE BLOOD XCPT REAGENT STRIP <td>POCT GLUCOSE, DOCKED</td><td>Routine</td><td>09/24/2020 10:24 PM EST</td><td></td><td> </td> 09/24/2020 10:24:00 PM [facility] GLUCOSE QUANTITATIVE BLOOD XCPT REAGENT STRIP <td>POCT GLUCOSE, DOCKED</td><td>Routine</td><td>09/24/2020 9:49 PM EST</td><td></td><td> </td> 09/24/2020 09:49:00 PM [facility] GLUCOSE QUANTITATIVE BLOOD XCPT REAGENT STRIP <td>POCT GLUCOSE, DOCKED</td><td>Routine</td><td>09/24/2020 9:05 PM EST</td><td></td><td> </td> 09/24/2020 09:05:00 PM [facility] GLUCOSE QUANTITATIVE BLOOD XCPT REAGENT STRIP <td>POCT GLUCOSE, DOCKED</td><td>Routine</td><td>09/24/2020 8:26 PM EST</td><td></td><td> </td> 09/24/2020 08:26:00 PM [facility] NATRIURETIC PEPTIDE <td>PROBNP</td><td>Routine</ td><td>09/24/2020 7:02 PM EST</td><td></td><td> </td> 09/24/2020 07:02:00 PM [facility] BLOOD COUNT COMPLETE AUTOMATED <td>CBC</td><td>Routine </td><td>09/24/2020 7:02 PM EST</td><td></td><td> </td> 09/24/2020 07:02:00 PM [facility] TRIIODOTHYRONINE T3 FREE <td>T3, FREE</td><td>Routine </td><td>09/24/2020 7:02 PM EST</td><td></td><td> </td> 09/24/2020 07:02:00 PM [facility] THYROXINE FREE <td>T4, FREE</td><td>Routine </td><td>09/24/2020 7:02 PM EST</td><td></td><td> </td> 09/24/2020 07:02:00 PM [facility] PHOSPHORUS INORGANIC <td>PHOSPHORUS LEVEL</td><td >Routine</td><td>09/24/2020 7:02 PM EST</td><td></td><td> </td> 09/24/2020 07:02:00 PM [facility] MAGNESIUM <td>MAGNESIUM LEVEL</td><td> Routine</td><td>09/24/2020 7:02 PM EST</td><td></td><td> </td> 09/24/2020 07:02:00 PM [facility] HEMOGLOBIN GLYCOSYLATED A1C <td>HEMOGLOBIN A1C</td><td>Routine</td><td>09/24/2020 7:02 PM EST</td><td></td><td> </td> 09/24/2020 07:02:00 PM [facility] BASIC METABOLIC PANEL CALCIUM TOTAL <td>BASIC METABOLI C PANEL</td><td>Routine</td><td>09/24/2020 7:02 PM EST</td><td></td><td> </td> 09/24/2020 07:02:00 PM [facility] GLUCOSE QUANTITATIVE BLOOD XCPT REAGENT STRIP <td>POCT GLUCOSE, DOCKED</td><td>Routine</td><td>09/24/2020 6:49 PM EST</td><td></td><td> </td> 09/24/2020 06:49:00 PM [facility] EKG 12-LEAD - [facility]MA[facility] REPORT <td>EKG 12-LEAD - CMAXX REPORT</td><td></td><td>09/24/2020 5:55 PM EST</td><td></td><td></td> 09/24/2020 05:55:51 PM [facility] EKG 12-LEAD - CMAXX REPORT <td>EKG 12-LEAD - CMAXX REPORT</td><td></td><td>09/24/2020 5:55 PM EST</td><td></td><td></td> 09/24/2020 05:55:51 PM [facility] EKG 12-LEAD <td>EKG 12-LEAD</td><td>Rout ine</td><td>09/24/2020 5:55 PM EST</td><td></td><td> </td> 09/24/2020 05:55:51 PM [facility] POCT AMB EKG <td>POCT AMB EKG</td><td>[place] nat[place]el</td><td>09/01/2020 4:39 PM EST</td><td> Chronic combined systolic and diastolic congestive heart failure</td><td> </td> 09/01/2020 09:39:00 PM EST Chronic combined systolic and diastolic congestive hea rt failure [facility] Chronic combined systolic and diastolic congestive heart failure BLOOD COUNT COMPLETE AUTO&AUTO DIFRNTL WBC COUNT <td>C BC AND DIFFERENTIAL</td><td>Routine</td><td>07/26/2020</td><td></td><td> </td> 07/26/2020 12:00:00 AM EST [facility] HEPATIC FUNCTION PANEL <td>HEPATIC FUNCTION PANEL</td><td>Routine</td><td>07/26/2020</td><td></td><td> </td> 07/26/2020 12:00:00 AM EST [facility] BASIC METABOLIC PANEL CALCIUM TOTAL <td>BASIC METABOLI C PANEL</td><td>Routine</td><td>07/26/2020</td><td></td><td> </td> 07/26/2020 12:00:00 AM EST [facility] BLOOD COUNT COMPLETE AUTO&AUTO DIFRNTL WBC COUNT <td>C BC AND DIFFERENTIAL</td><td>Routine</td><td>06/16/2020</td><td></td><td> </td> 06/16/2020 12:00:00 AM EDT [facility] HEPATIC FUNCTION PANEL <td>HEPATIC FUNCTION PANEL</td><td>Routine</td><td>06/16/2020</td><td></td><td> </td> 06/16/2020 12:00:00 AM EDT [facility] BASIC METABOLIC PANEL CALCIUM TOTAL <td>BASIC METABOLI C PANEL</td><td>Routine</td><td>06/16/2020</td><td></td><td> </td> 06/16/2020 12:00:00 AM EDT [facility] Results ID Date Data Source [id number] 06/02/2021 11:22:00 AM EDT [facility] Name Value Range Interpretation Code Description Data Devi rce(s) Supporting Document(s) Laboratory test finding (navigational concept) Laboratory test r esult Normal (applies to non-numeric results) [facility] <content>FULL REPORT IN LAB NOTES ([facility]).</content>
<content></content>
<content>ORGANISM 1: KLEBSIELLA OXYTOCA</content>
<content></content>
<content>QUANTITY OF GROWTH MODERATE</content>
<content></content>
<content>ORGANISM 2: STREP AGALACTIAE GROUP B</content>
<content></content>
<content>QUANTITY OF GROWTH MODERATE</content>
<content></content>
<content></content>
<content> ORGANISM 1: KLEBSIELLA OXYTOCA</content>
<content>ORGANISM 2: STREP AGALACTIAE GROUP B</content>
<content></content>
<content>KLEBSIELLA OXYTOCA: REACTION</content>
<content> TRIMETHOPRIM/SULFAMETHOXAZOLE IV 160mg TMP & 800mg SMXq6h <=20 S</content>
<content>TRIMETHOPRIM/SULFAMETHOXAZOLE PO Bactrim DS Bid <=20 S</content>
<content>AMPICILLIN IV 500mg q6h >=32 R</content>
<content>AMPICILLIN PO 500mg q6h fasting >=32 R</content>
<content> GENTAMICIN IV 80mg q8h <=1 S</content>
<content>CEFAZOLIN IV 1gm q8h >=64 R</content>
<content>LEVOFLOXACIN IV 500mg qd <=0.12 S</content>
<content>LEVOFLOXACIN PO 250mg qd <=0.12 S</content>
<content>LEVOFLOXACIN PO 500mg qd <=0.12 S</content>
<content>TOBRAMYCIN IV 80mg q8h <=1 S</content>
<content>CEFTRIAXONE IV 1gm q24h 8 S</content>
<content>CEFTAZIDIME IV 1gm q8h <=1 S</content>
<content>AMPICILLIN/SULBACTAM IV 1.5g q6h >=32 R</content>
<content>PIPERACILLIN/TAZOBACTAM IV 2.25 gm q6h >=128 R</content>
<content>AZTREONAM IV 1gm q8h 16 I</content>
<content>ERTAPENEM IV 1gm qd <=0.5 S</content>
<content>MEROPENEM IV 1 gm q8h <=0.25 S</content>
<content>MEROPENEM IV 500 mg q8h <=0.25 S</content>
<content>TIGECYCLINE IV 50mg q12h <=0.5 S</content>
<content>CEFEPIME IV 1 gm q12h <=1 S</content>
<content>CEFEPIME IV 2 gm q12h <=1 S</content>
<content>EXTD BRD SPCTRM BETA LACTAMASE IV NEGATIVE FOR ESBL</content>
<content></content> ID Date Data Source [id number] 05/30/2021 12:01:00 PM EDT [facility]) Name Value Range Interpretation Code Description Data Devi rce(s) Supporting Document(s) Hemoglobin A1c/Hemoglobin.total in Blood 5.7 % 3.6-6.9 [facility] ([facility]) <content>Hgb A1c Interpretation:</conten t>
<content><5.8% - Non- diabetic</content>
<content>>6.5% - Diabetic</content>
<content><7.0% - ADA diabetic treatment goal</content>
<content></content> Thyrotropin [Units/volume] in Serum or Plasma 9.514 mIU/ml 0. 350-5.500 Above high normal [facility] ([facility]) not fasting Urate [Mass/volume] in Serum or Plasma 10.7 mg/dL 2.6-7.2 Above hi gh normal [facility] ([facility]) not fasting Venipuncture Laboratory test result [facility] ([facility]) not fasting Glucose mean value [Mass/volume] in Blood Estimated fr om glycated hemoglobin 117 mg/dL [facility]) The Estimated Average Glucose is a calcu lation of the average glucose over the last 120 days including non-fasting as well as fasting levels. Vitamin D+Metabolites [Mass/volume] in Serum or Plasma 23.68 ng/ mL 30-100 Below low normal [facility] ([facility]) <content>Recommended Levels for Circulat ing 25-hydroxy Vitamin D:</content>
<content>Vitamin D Status 25-OH Vitamin D Test Result</content>
<content>Deficient <10ng/mL</content>
<content>Insufficient 10- 29ng/mL</content>
<content>Sufficient 30-100ng/mL</content>
<content>Potential Intoxication >100ng/mL</content>
<content>A pediatric reference range has not been established using this method.</content>
<content></content> ID Date Data Source [id number] 05/30/2021 12:01:00 PM EDT [facility] ([facility]) Name Value Range Interpretation Code Description Data Devi rce(s) Supporting Document(s) Cholesterol [Mass/volume] in Serum or Plasma 154 mg/dL 0-200 [facility] ([facility]) Cholesterol in HDL [Mass/volume] in Serum or Plasma 68 mg/dL 40-60 Above high normal [facility] ([facility]) Triglyceride [Mass/volume] in Serum or Plasma 58 mg/dL 0-249 [facility] ([facility]) <content>National Cholesterol Education Program (NCEP) Guidelines:</content>
<content>Recommended Range <150 mg/dL</content>
<content></content> Cholesterol in LDL [Mass/volume] in Serum or Plasma by calcu lation 74 mg/dL 0-130 [facility] ([facility]) VLDL 12 mg/dL 0-28 [facility] Cardiac Risk 2.26 Ratio 3.7-5.3 Below low normal [facility] ([facility]) ID Date Data Source [id number] 05/30/2021 12:01:00 PM EDT [facility]) Name Value Range Interpretation Code Description Data Devi rce(s) Supporting Document(s) Urea nitrogen [Moles/volume] in Serum or Plasma 78 mg/dL 6-20 Record coming over is a correction and thus replaces a final result [facility] NT ([facility]) Results Confirmed by Repeat Analysis. Tried to call no answer [phone] lori Consistent with previous results [facility] and transmitted [id number] lori 05/30/2021 Glucose [Mass/volume] in Serum or Plasma 102 mg/dL 74-106 [facility] ([facility]) [place] [employer] (ADA) Recommended Range is 65-99 mg/dL Sodium [Moles/volume] in Serum or Plasma 137 mmol/L 136-145 [facility] ([facility]) Potassium [Moles/volume] in Serum or Plasma 4.5 mmol/L 3.5-5.3 [facility] ([facility]) Creatinine [Mass/volume] in Serum or Plasma 4.6 mg/dL 0.5-1.3 Above high normal [facility] ([facility]) Carbon dioxide, total [Moles/volume] in Serum or Plasma 18 meq/L 20-31 Below low normal [facility] ([facility]) Chloride [Moles/volume] in Serum or Plasma 108 mmol/L 98-107 Above high normal [facility] ([facility]) eGFR-male 12 mL/m/1.73m [facility]) Anion Gap 11 mmol/L 7-16 [facility]) eGFR-Aa male 15 mL/m/1.73m [facility] <content>Normal Kidney Function or Mild Disease GFR >59 mL/min/1.73m2</content>
<content>Chronic Kidney Disease GFR 15-59 mL/min/1.73m2</content>
<content>Renal Failure GFR <15 mL/min/1.73m2</content>
<content></content> Alkaline phosphatase [Enzymatic activity/volume] in Serum or Plasma 64 U/L 46-116 [facility] ([facility]) Alanine aminotransferase [Enzymatic activity/volume] in Seru m or Plasma 16 U/L 4-36 [facility] ([facility]) Effective 02/23/2017: [employer] has indicated interference with the drugs sulfasalazine and sulfapyridine. They suggest collection should occur prior to drug administration due to falsely depressed results. Aspartate aminotransferase [Enzymatic activity/volume] in Serum or Plasma 16 U/L 8-33 [facility]) Albumin [Mass/volume] in Serum or Plasma 3.6 g/dL 3.6-5.1 [facility] ([facility]) Bilirubin.total [Mass/volume] in Serum or Plasma 0.2 mg/dL 0.3-1.2 Below low normal [facility] ([facility]) Protein [Mass/volume] in Serum or Plasma 5.9 g/dL 6.4-8.3 Below low normal [facility] ([facility]) Results may reflect a potential interfer ence in Total Protein results in patients receiving dextran as blood volume expanders. Albumin/Globulin [Mass Ratio] in Serum or Plasma 1.6 Ratio 1.0-2.0 [facility] ([facility]) Globulin [Mass/volume] in Serum by calculation 2.3 g/dL 1.9-3.7 [facility] ([facility]) Calcium [Mass/volume] in Serum or Plasma 8.0 mg/dL 8.9-10.5 Below low normal [facility] ([facility]) ID Date Data Source [id number] 05/30/2021 12:01:00 PM EDT [facility] ([facility]) Name Value Range Interpretation Code Description Data Devi rce(s) Supporting Document(s) Cobalamin (Vitamin B12) [Mass/volume] in Serum or Plasma 8765 pg /mL 211-911 Above high normal [facility] ([facility]) Results Confirmed on Dilution. ID Date Data Source [id number] 05/30/2021 12:01:00 PM EDT [facility] ([facility]) Name Value Range Interpretation Code Description Data Devi rce(s) Supporting Document(s) WBC. 3.80 x10E3/uL 4.2-12.0 Below low normal [facility]) Erythrocytes [#/volume] in Blood by Automated count 2.64 x10E6/u L 4.4-6.0 Below low normal [facility] ([facility]) Hemoglobin [Mass/volume] in Blood 8.3 g/dL 13.8-18.0 Below low nor mal [facility] ([facility]) MCH 31.5 pg 27-33 [facility]) Hematocrit [Volume Fraction] of Blood by Automated count 26.9 % 39-52 Below low normal [facility] ([facility]) MCV 102.0 fL 80-98 Above high normal [facility]) Platelets [#/volume] in Blood by Automated count 283 x10E3/uL 135-420 [facility] ([facility]) MCHC 30.9 g/dL 32-36 Below low normal [facility] ([facility]) RDW 16.5 % 11.2-15.2 Above high normal [facility]) % Indra 79.8 % 41.0-80.0 [facility] %Lym 15.4 % 10.0-45.2 [facility]) MPV 8.9 fL 7.0-12.3 [facility] Eosinophils [#/volume] in Blood by Automated count 1.0 % 0.0-8.0 [facility] ([facility]) %Luna 3.6 % 2.0-13.0 [facility] %Baso 0.2 % 0.0-3.0 [facility]) Luna 0.1 x10E3/uL 0.0-1.0 [facility] Neut 3.0 x10E3/uL 2.0-8.1 [facility] Lymp 0.6 x10E3/uL 0.6-3.1 [facility] Baso 0.0 x10E3/uL 0.0-0.2 [facility] Eos 0.0 x10E3/uL 0.0-0.6 [facility] ID Date Data Source [id number] 05/24/2021 06:24:00 PM EDT [facility] ([facility]) Name Value Range Interpretation Code Description Data Devi rce(s) Supporting Document(s) Blood Urea Nitrogen 63 mg/dL 7-18 Above high normal [facility] ([facility]) Glucose, Fasting 89 mg/dL 70-100 Normal (applies to non-numeric results) [facility] ([facility]) Creatinine For GFR 3.87 mg/dL 0.70-1.30 Above high normal [facility] ([facility]) Glomerular Filtration Rate 15.7 Below low normal [facility] ([facility]) <content>Units are mL/min/1.73 m2</content>
<content></content>
<content>Chronic Kidney Disease Staging per NKF:</content>
<content></content>
<content>Stage I & II GFR >=60 Normal to Mildly Decreased</content>
<content>Stage III GFR 30- 59 Moderately Decreased</content>
<content>Stage IV GFR 15-29 Severely Decreased</content>
<content>Stage V GFR <15 Very Little GFR Left</content>
<content>ESRD GFR <15 on GREETING CARD EDITOR</content>
<content></content> Potassium Serum 5.0 meq/L 3.5-5.1 Normal (applies to non-numeric results) [facility] ([facility]) Chloride Level 110 meq/L 98-107 Above high normal [facility] ([facility]) Sodium Level 139 meq/L 136-145 Normal (applies to non-numeric res ults) [facility] ([facility]) Anion Gap 10 meq/L 8-16 Normal (applies to non-numeric resul ts) [facility] ([facility]) Calcium Level 7.5 mg/dL 8.8-10.2 Below low normal [facility] T ([facility]) Carbon Dioxide Level 19 meq/L 21-32 Below low normal [facility] ([facility]) Alt/SGPT 19 U/L 12-78 Normal (applies to non-numeric resul ts) [facility] ([facility]) Alkaline Phosphatase 74 U/L 45-117 Normal (applies to non-num jerrod results) [facility] ([facility]) Ast/Sgot 14 U/L 7-37 Normal (applies to non-numeric resul ts) [facility] ([facility]) Albumin 2.2 GM/DL 3.2-5.2 Below low normal [facility] Total Protein 5.6 GM/DL 6.4-8.2 Below low normal [facility] T ([facility]) Bilirubin,Total 0.3 mg/dL 0.2-1.0 Normal (applies to non-numeric results) [facility] ([facility]) Albumin/Globulin Ratio 0.6 Normal (applies to non-n umeric results) [facility] ([facility]) ID Date Data Source [id number] 05/24/2021 06:24:00 PM EDT [facility] ([facility]) Name Value Range Interpretation Code Description Data Devi rce(s) Supporting Document(s) White Blood Count 7.0 10 4.0-10.0 Normal (applies to non-numeri c results) [facility] ([facility]) Red Blood Count 2.56 10 4.30-6.10 Below low normal [facility] ([facility]) Hematocrit 25.1 % 42.0-52.0 Below low normal [facility] Hemoglobin 8.1 g/dL 13.5-17.5 Below low normal [facility] ( [facility]) Mean Corpuscular Hemoglobin 31.6 pg 27.0-33.0 Norm al (applies to non-numeric results) [facility] ([facility]) Mean Corpuscular HGB Conc 32.3 g/dL 32.0-36.5 Normal (applies to non-numeric results) [facility] ([facility]) Mean Corpuscular Volume 98.0 fl 80.0-96.0 Above high normal [facility] ([facility]) Neutrophils % 86.6 % 36.0-66.0 Above high normal [facility] NT ([facility]) Platelet Count, Automated 226 10 150-450 Normal (applies to non-numeric results) [facility] ([facility]) Red Cell Distribution Width 15.8 % 11.5-14.5 Above high normal [facility] ([facility]) Lymph % 7.1 % 24.0-44.0 Below low normal [facility] Luna % 4.7 % 2.0-8.0 Normal (applies to non-numeric resul ts) [facility] ([facility]) Eos % 0.7 % 0.0-3.0 Normal (applies to non-numeric resul ts) [facility] ([facility]) Immature Granulocyte % 0.6 % 0-3.0 Normal (applies to non-n umeric results) [facility] ([facility]) Baso % 0.3 % 0.0-1.0 Normal (applies to non-numeric resul ts) [facility] ([facility]) Nucleated Red Blood Cell % 0.0 % 0-0 Normal (applies to n on-numeric results) [facility] ([facility]) Lymph # 0.5 10 1.5-5.0 Below low normal [facility] Neutrophils # 6.1 10 1.5-8.5 Normal (applies to non-numeric re sults) [facility] ([facility]) Luna # 0.3 10 0.0-0.8 Normal (applies to non-numeric resul ts) [facility] ([facility]) Eos # 0.1 10 0.0-0.5 Normal (applies to non-numeric resul ts) [facility] ([facility]) Baso # 0.0 10 0.0-0.2 Normal (applies to non-numeric resul ts) [facility] ([facility]) ID Date Data Source [id number] 05/11/2021 05:28:00 PM EDT [facility] Name Value Range Interpretation Code Description Data Devi rce(s) Supporting Document(s) SARS COVID ANTIGEN NEGATIVE [facility] This lab was ordered by [facility] a nd reported by [facility]. ID Date Data Source [id number] 05/11/2021 11:19:00 AM EDT [facility] Name Value Range Interpretation Code Description Data Devi rce(s) Supporting Document(s) SARS coronavirus 2 RNA [Presence] in Res piratory specimen by BEKA with probe detection NEGATIVE [facility] This lab was ordered by [facility] a nd reported by [facility]. ID Date Data Source [id number] 04/19/2021 04:35:00 PM EDT [facility] ([facility]) Name Value Range Interpretation Code Description Data Devi rce(s) Supporting Document(s) Urea nitrogen [Moles/volume] in Serum or Plasma 85 mg/dL 6-20 Record coming over is a correction and thus replaces a final result [facility] ([facility]) Results Confirmed by Repeat Analysis. Results faxed at 1053 04/20/21 kk Called to Lauren at 1053 04/20/21 kk Glucose [Mass/volume] in Serum or Plasma 94 mg/dL 74-106 [facility] ([facility]) [place] [employer] (ADA) Recommended Range is 65-99 mg/dL Creatinine [Mass/volume] in Serum or Plasma 5.6 mg/dL 0.5- 1.3 Record coming over is a correction and thus replaces a final result [facility] ([facility]) Results Confirmed by Repeat Analysis. Results faxed at 1053 04/20/21 kk Called to Lauren at 1053 04/20/21 kk Potassium [Moles/volume] in Serum or Plasma 3.6 mmol/L 3.5-5.3 [facility] ([facility]) Sodium [Moles/volume] in Serum or Plasma 132 mmol/L 136-145 Below low normal [facility] ([facility]) Results Confirmed by Repeat Analysis. Carbon dioxide, total [Moles/volume] in Serum or Plasma 23 meq/L 20 -31 [facility] ([facility]) Anion Gap 13 mmol/L 7-16 [facility] Chloride [Moles/volume] in Serum or Plasma 96 mmol/L 98-107 [place] w low normal [facility] ([facility]) Alkaline phosphatase [Enzymatic activity/volume] in Serum or Plasma 74 U/L 46-116 [facility] ([facility]) eGFR-male 10 mL/m/1.73m [facility] ([facility]) eGFR-Aa male 12 mL/m/1.73m [facility] ([facility]) <content>Normal Kidney Function or Mild Disease GFR >59 mL/min/1.73m2</content>
<content>Chronic Kidney Disease GFR 15-59 mL/min/1.73m2</content>
<content>Renal Failure GFR <15 mL/min/1.73m2</content>
<content></content> Alanine aminotransferase [Enzymatic activity/volume] in Seru m or Plasma 19 U/L 4-36 [facility] ([facility]) Effective 02/23/2017: [employer] has indicated interference with the drugs sulfasalazine and sulfapyridine. They suggest collection should occur prior to drug administration due to falsely depressed results. Aspartate aminotransferase [Enzymatic activity/volume] in Serum or Plasma 26 U/L 8-33 [facility] Bilirubin.total [Mass/volume] in Serum or Plasma 0.3 mg/dL 0.3-1.2 [facility] ([facility]) Protein [Mass/volume] in Serum or Plasma 5.4 g/dL 6.4-8.3 Below low normal [facility] ([facility]) Results may reflect a potential interfer ence in Total Protein results in patients receiving dextran as blood volume expanders. Albumin [Mass/volume] in Serum or Plasma 3.0 g/dL 3.6-5.1 Below low normal [facility] ([facility]) Globulin [Mass/volume] in Serum by calculation 2.4 g/dL 1.9-3.7 [facility] ([facility]) Albumin/Globulin [Mass Ratio] in Serum or Plasma 1.3 Ratio 1.0-2.0 [facility] ([facility]) Calcium [Mass/volume] in Serum or Plasma 7.8 mg/dL 8.9-10.5 Below low normal [facility] ([facility]) ID Date Data Source [id number] 04/19/2021 04:35:00 PM EDT [facility] ([facility] Name Value Range Interpretation Code Description Data Devi rce(s) Supporting Document(s) Hemoglobin [Mass/volume] in Blood 11.0 g/dL 13.8-18.0 Below low nor mal [facility] ([facility]) WBC. 8.30 x10E3/uL 4.2-12.0 [facility] Erythrocytes [#/volume] in Blood by Automated count 3.61 x10E6/u L 4.4-6.0 Below low normal [facility] ([facility]) 1+ Ovalocytes 2+ Anisocytosis 1+ Hypochromasia Hematocrit [Volume Fraction] of Blood by Automated count 34.8 % 39-52 Below low normal [facility] ([facility]) MCV 96.4 fL 80-98 [facility] MCH 30.6 pg 27-33 [facility]) Platelets [#/volume] in Blood by Automated count 247 x10E3/uL 135-420 [facility] ([facility]) RDW 14.8 % 11.2-15.2 [facility] MCHC 31.7 g/dL 32-36 Below low normal [facility] ([facility]) MPV 8.1 fL 7.0-12.3 [facility]) %Lym 4.6 % 10.0-45.2 Below low normal [facility] ([facility]) % Indra 93.0 % 41.0-80.0 Above high normal [facility]) %Luna 2.1 % 2.0-13.0 [facility] Eosinophils [#/volume] in Blood by Automated count 0.1 % 0.0-8.0 [facility] ([facility]) %Baso 0.1 % 0.0-3.0 [facility]) Neut 7.7 x10E3/uL 2.0-8.1 [facility] Luna 0.2 x10E3/uL 0.0-1.0 [facility] Lymp 0.4 x10E3/uL 0.6-3.1 Below low normal [facility]) Baso 0.0 x10E3/uL 0.0-0.2 [facility] Eos 0.0 x10E3/uL 0.0-0.6 [facility] ID Date Data Source [id number] 04/19/2021 04:35:00 PM EDT [facility]) Name Value Range Interpretation Code Description Data Devi rce(s) Supporting Document(s) Natriuretic peptide B [Mass/volume] in Serum or Plasma 1015.8 pg /mL 0-100 Above high normal [facility] ([facility]) ID Date Data Source [id number] 04/19/2021 04:35:00 PM EDT [facility]) Name Value Range Interpretation Code Description Data Devi rce(s) Supporting Document(s) Band 0 % 3-5 Below low normal [facility] ([facility]) Segs 89 % 40-60 Above high normal [facility] Monos 2 % 6-12 Below low normal [facility] ([facility]) Lymph 8 % 21-45 Below low normal [facility]) Eosinophils 0 % 1-5 Below low normal [facility] Basophils 0 % 1-3 Below low normal [facility] ([facility]) Atyp Lymph 1 % [facility] ID Date Data Source [id number] 04/19/2021 04:35:00 PM EDT [facility] Name Value Range Interpretation Code Description Data Devi rce(s) Supporting Document(s) Venipuncture Laboratory test result [facility] ([facility]) ID Date Data Source [id number] 04/04/2021 07:29:00 PM EDT [facility] Name Value Range Interpretation Code Description Data Devi rce(s) Supporting Document(s) Laboratory test finding (navigational concept) Laboratory test r esult Normal (applies to non-numeric results) [facility] Negative results do not preclude influen za or RSV virus infection and should not be used as the sole basis for treatment or other patient management decisions. Laboratory test finding (navigational concept) Laboratory test r esult Normal (applies to non-numeric results) [facility] Negative results do not preclude influen za or RSV virus infection and should not be used as the sole basis for treatment or other patient management decisions. Laboratory test finding (navigational concept) Laboratory test r esult Normal (applies to non-numeric results) [facility] Negative results do not preclude influen za or RSV virus infection and should not be used as the sole basis for treatment or other patient management decisions. Laboratory test finding (navigational concept) Laboratory test r esult Normal (applies to non-numeric results) [facility] A false negative result may occur if a s pecimen is improperly collected, transported or handled. False [...] pathogens. DISCLAIMER: Testing was performed using the VEASYT SARS-CoV-2 test. This test was developed and its performance characteristics determined by VEASYT. This test has not been FDA cleared [...] the authorization is terminated or revoked sooner. ID Date Data Source [id number] 04/04/2021 07:29:00 PM EDT [facility] Name Value Range Interpretation Code Description Data Devi rce(s) Supporting Document(s) SARS coronavirus 2 RNA [Presence] in Res piratory specimen by BEKA with probe detection NEGATIVE [facility] This lab was ordered by [facility] a nd reported by [facility]. ID Date Data Source [id number] 04/04/2021 05:11:00 PM EDT [facility] ([facility]) Name Value Range Interpretation Code Description Data Devi rce(s) Supporting Document(s) Magnesium [Mass/volume] in Serum or Plasma 1.5 mg/dL 1.8-2.4 Belo w low normal [facility] ([facility]) Natriuretic peptide.B prohormone N-Terminal [Mass/volu me] in Serum or Plasma 8105 pg/mL Above high normal [facility] ([facility]) Thyrotropin [Units/volume] in Serum or Plasma 3.550 uIU/ML 0. 358-3.740 Normal (applies to non-numeric results) [facility] ID Date Data Source [id number] 04/04/2021 05:11:00 PM EDT [facility] ([facility]) Name Value Range Interpretation Code Description Data Dvei rce(s) Supporting Document(s) Glucose, Fasting 95 mg/dL 70-100 Normal (applies to non-numeric results) [facility] ([facility]) Blood Urea Nitrogen 130 mg/dL 7-18 Above high normal [facility] ([facility]) Creatinine For GFR 8.50 mg/dL 0.70-1.30 Above upper panic limits [facility] ([facility]) Glomerular Filtration Rate 6.4 Below low normal [facility] ([facility]) <content>Units are mL/min/1.73 m2</content>
<content></content>
<content>Chronic Kidney Disease Staging per NKF:</content>
<content></content>
<content>Stage I & II GFR >=60 Normal to Mildly Decreased</content>
<content>Stage III GFR 30- 59 Moderately Decreased</content>
<content>Stage IV GFR 15-29 Severely Decreased</content>
<content>Stage V GFR <15 Very Little GFR Left</content>
<content>ESRD GFR <15 on GREETING CARD EDITOR</content>
<content></content> Potassium Serum 4.5 meq/L 3.5-5.1 Normal (applies to non-numeric results) [facility] ([facility]) Sodium Level 135 meq/L 136-145 Below low normal [facility] ([facility]) Anion Gap 10 meq/L 8-16 Normal (applies to non-numeric resul ts) [facility] ([facility]) Carbon Dioxide Level 20 meq/L 21-32 Below low normal [facility] ([facility]) Chloride Level 105 meq/L 98-107 Normal (applies to non-numeric r esults) [facility] ([facility]) Calcium Level 8.3 mg/dL 8.8-10.2 Below low normal [facility] ([facility]) ID Date Data Source [id number] 04/04/2021 05:11:00 PM EDT [facility] ([facility]) Name Value Range Interpretation Code Description Data Devi rce(s) Supporting Document(s) Alt/SGPT 18 U/L 12-78 Normal (applies to non-numeric resul ts) [facility] ([facility]) Ast/Sgot 10 U/L 7-37 Normal (applies to non-numeric resul ts) [facility] ([facility]) Alkaline Phosphatase 100 U/L 45-117 Normal (applies to non-num jerrod results) [facility]) Bilirubin,Total 0.3 mg/dL 0.2-1.0 Normal (applies to non-numeric results) [facility] ([facility]) Bilirubin,Direct 0.1 mg/dL 0.0-0.2 Normal (applies to non-numeric results) [facility]) Albumin 2.8 GM/DL 3.2-5.2 Below low normal [facility] ([facility]) Total Protein 6.0 GM/DL 6.4-8.2 Below low normal [facility] Albumin/Globulin Ratio 0.9 Normal (applies to non-n umeric results) [facility]) ID Date Data Source [id number] 04/04/2021 05:11:00 PM EDT [facility] ([facility]) Name Value Range Interpretation Code Description Data Devi rce(s) Supporting Document(s) CPK Creatine Phosphokinase 95 U/L 39-308 Kailee l (applies to non-numeric results) [facility] ([facility]) CK-MB Value Mass 3.3 ng/mL Normal (applies to non-numeric results) [facility] ([facility]) MB/CK Relative Index 3.47 Normal (applies to non-num jerrod results) [facility] ([facility]) <content>DIAGNOSIS CRITERIA</content>
<content>MMB ng/ml Relative Index (RI)</content>
<content>NON-AMI < or = 5 N/A</content>
<content>WAL[place] ZONE > 5 < or = 4</content>
<content>AMI > 5 > 4</content>
<content></content> Troponin I 0.03 ng/mL Normal (applies to non-numeric resul ts) [facility] ([facility]) <content>Troponin I Reference Interval f or Siemens [place] LOCI:</content>
<content></content>
<content>99th Percentile= 0.00-0.045 ng/ml</content>
<content></content>
<content>Risk Stratification:</content>
<content><= 0.10 ng/ml Decreased Risk for Adverse Clinical</content>
<content>Events.</content>
<content>0.10-1.50 ng/ml Increased Risk for Adverse Clinical</content>
<content>Events. Evaluation of additional</content>
<content>criterion and/or repeat testing in 2-6</content>
<content>hours is suggested to rule out myocardial</content>
<content>damage.</content>
<content>>= 1.50 ng/ml Indicative of Myocardial Injury.</content>
<content></content> ID Date Data Source [id number] 04/04/2021 05:11:00 PM EDT [facility] ([facility]) Name Value Range Interpretation Code Description Data Devi rce(s) Supporting Document(s) Red Blood Count 4.09 10 4.30-6.10 Below low normal [facility] ([facility]) White Blood Count 4.5 10 4.0-10.0 Normal (applies to non-numeri c results) [facility]) Hemoglobin 12.3 g/dL 13.5-17.5 Below low normal [facility] ( [facility]) Mean Corpuscular Volume 91.4 fl 80.0-96.0 Normal ( applies to non-numeric results) [facility] ([facility]) Hematocrit 37.4 % 42.0-52.0 Below low normal [facility] ([facility]) Mean Corpuscular HGB Conc 32.9 g/dL 32.0-36.5 Normal (applies to non-numeric results) [facility] ([facility]) Mean Corpuscular Hemoglobin 30.1 pg 27.0-33.0 Norm al (applies to non-numeric results) [facility] ([facility]) Red Cell Distribution Width 14.7 % 11.5-14.5 Above high normal [facility] ([facility]) Neutrophils % 82.9 % 36.0-66.0 Above high normal [facility] ([facility]) Platelet Count, Automated 207 10 150-450 Normal (applies to non-numeric results) [facility] ([facility]) Lymph % 9.0 % 24.0-44.0 Below low normal [facility] Luna % 7.9 % 2.0-8.0 Normal (applies to non-numeric resul ts) [facility] ([facility]) Baso % 0.0 % 0.0-1.0 Normal (applies to non-numeric resul ts) [facility] ([facility]) Immature Granulocyte % 0.2 % 0-3.0 Normal (applies to non-n umeric results) [facility] ([facility]) Eos % 0.0 % 0.0-3.0 Normal (applies to non-numeric resul ts) [facility] ([facility]) Neutrophils # 3.8 10 1.5-8.5 Normal (applies to non-numeric re sults) [facility] ([facility]) Nucleated Red Blood Cell % 0.0 % 0-0 Normal (applies to n on-numeric results) [facility] ([facility]) Luna # 0.4 10 0.0-0.8 Normal (applies to non-numeric resul ts) [facility] ([facility]) Lymph # 0.4 10 1.5-5.0 Below low normal [facility] Eos # 0.0 10 0.0-0.5 Normal (applies to non-numeric resul ts) [facility] ([facility]) Baso # 0.0 10 0.0-0.2 Normal (applies to non-numeric resul ts) [facility] ([facility]) ID Date Data Source [id number] 01/10/2021 10:36:54 AM EDT [facility] INFORMATIONPatient MRN Name Date of Age Gend*PT [id number] Lilian Garner 1930 89 years M ---PT Location Admission Date/Time Visit ID Attending Provider --- --- --- --- EPI ID CSN Admitting Provider [id number] ---Addended by: DADA SULLIVAN on: 01/10/2021 10:36 AM Modules accepted: Level of Service Name Value Range Interpretation Code Description Data Devi rce(s) Supporting Document(s) ID Date Data Source [id number] 12/19/2020 02:04:00 PM EDT [facility] ([facility]) Name Value Range Interpretation Code Description Data Devi rce(s) Supporting Document(s) Venipuncture Laboratory test result [facility] ([facility]) not fasting ID Date Data Source [id number] 12/19/2020 02:04:00 PM EDT [facility] ([facility]) Name Value Range Interpretation Code Description Data Devi rce(s) Supporting Document(s) Cholesterol [Mass/volume] in Serum or Plasma 146 mg/dL 0-200 [facility] ([facility]) Cholesterol in LDL [Mass/volume] in Serum or Plasma by calcu lation 70 mg/dL 0-130 [facility] ([facility]) Cholesterol in HDL [Mass/volume] in Serum or Plasma 59 mg/dL 40-60 [facility] ([facility]) Triglyceride [Mass/volume] in Serum or Plasma 84 mg/dL 0-249 [facility] ([facility]) <content>National Cholesterol Education Program (NCEP) Guidelines:</content>
<content>Recommended Range <150 mg/dL</content>
<content></content> Cardiac Risk 2.47 Ratio 3.7-5.3 Below low normal [facility] ([facility]) VLDL 17 mg/dL 0-28 [facility] ID Date Data Source [id number] 12/19/2020 02:04:00 PM EDT [facility] ([facility]) Name Value Range Interpretation Code Description Data Devi rce(s) Supporting Document(s) Glucose [Mass/volume] in Serum or Plasma 110 mg/dL 74-106 Above high normal [facility] ([facility]) [place] Diabetes Association (ADA) Recommended Range is 65-99 mg/dL Urea nitrogen [Moles/volume] in Serum or Plasma 86 mg/dL 6-20 Record coming over is a correction and thus replaces a final result [facility] ([facility]) Results Confirmed by Repeat Analysis. Results faxed at 437 12/19/20 kk Called to Lauren at 437 12/19/20 kk Potassium [Moles/volume] in Serum or Plasma 4.8 mmol/L 3.5-5.3 [facility] ([facility]) Creatinine [Mass/volume] in Serum or Plasma 3.4 mg/dL 0.5-1.3 Above high normal [facility] ([facility]) Sodium [Moles/volume] in Serum or Plasma 138 mmol/L 136-145 [facility] ([facility]) Anion Gap 9 mmol/L 7-16 [facility] Carbon dioxide, total [Moles/volume] in Serum or Plasma 26 meq/L 20 -31 [facility] ([facility]) Chloride [Moles/volume] in Serum or Plasma 103 mmol/L 98-107 [facility] ([facility]) eGFR-male 17 mL/m/1.73m [facility] eGFR-Aa male 21 mL/m/1.73m [facility] ([facility]) <content>Normal Kidney Function or Mild Disease GFR >59 mL/min/1.73m2</content>
<content>Chronic Kidney Disease GFR 15-59 mL/min/1.73m2</content>
<content>Renal Failure GFR <15 mL/min/1.73m2</content>
<content></content> Alkaline phosphatase [Enzymatic activity/volume] in Serum or Plasma 81 U/L 46-116 [facility] ([facility]) Bilirubin.total [Mass/volume] in Serum or Plasma 0.4 mg/dL 0.3-1.2 [facility] ([facility]) Alanine aminotransferase [Enzymatic activity/volume] in Seru m or Plasma 18 U/L 4-36 [facility] ([facility]) Effective 02/23/2017: [employer] has indicated interference with the drugs sulfasalazine and sulfapyridine. They suggest collection should occur prior to drug administration due to falsely depressed results. Aspartate aminotransferase [Enzymatic activity/volume] in Serum or Plasma 27 U/L 8-33 [facility] Albumin/Globulin [Mass Ratio] in Serum or Plasma 2.1 Ratio 1.0-2.0 Above high normal [facility] ([facility]) Albumin [Mass/volume] in Serum or Plasma 4.5 g/dL 3.6-5.1 [facility] ([facility]) Protein [Mass/volume] in Serum or Plasma 6.6 g/dL 6.4-8.3 [facility] ([facility]) Results may reflect a potential interfer ence in Total Protein results in patients receiving dextran as blood volume expanders. Globulin [Mass/volume] in Serum by calculation 2.1 g/dL 1.9-3.7 [facility] ([facility]) Calcium [Mass/volume] in Serum or Plasma 9.0 mg/dL 8.9-10.5 [facility] ([facility]) ID Date Data Source [id number] 12/19/2020 02:04:00 PM EDT [facility] ([facility]) Name Value Range Interpretation Code Description Data Devi rce(s) Supporting Document(s) Cobalamin (Vitamin B12) [Mass/volume] in Serum or Plasma 5251 pg /mL 211-911 Above high normal [facility] ([facility]) Results Confirmed on Dilution. ID Date Data Source [id number] 12/19/2020 02:04:00 PM EDT [facility] ([facility]) Name Value Range Interpretation Code Description Data Devi rce(s) Supporting Document(s) Iron [Mass/volume] in Serum or Plasma 77 ug/dL 50-175 [facility] ([facility]) not fasting Iron binding capacity [Mass/volume] in Serum or Plasma 379 ug/dL 250 -450 [facility] ([facility]) not fasting % Saturation 20 % 13-48 [facility] not fasting Ferritin [Mass/volume] in Serum or Plasma 19 ng/mL 22.0-322.0 Below low normal [facility] ([facility]) not fasting ID Date Data Source [id number] 12/19/2020 02:04:00 PM EDT [facility] ([facility]) Name Value Range Interpretation Code Description Data Devi rce(s) Supporting Document(s) Hemoglobin [Mass/volume] in Blood 12.1 g/dL 13.8-18.0 Below low nor mal [facility] ([facility]) WBC. 5.30 x10E3/uL 4.2-12.0 [facility] Erythrocytes [#/volume] in Blood by Automated count 3.94 x10E6/u L 4.4-6.0 Below low normal [facility] ([facility]) MCV 98.0 fL 80-98 [facility] MCH 30.7 pg 27-33 [facility]) Hematocrit [Volume Fraction] of Blood by Automated count 38.7 % 39-52 Below low normal [facility] ([facility]) RDW 13.7 % 11.2-15.2 [facility]) MCHC 31.3 g/dL 32-36 Below low normal [facility] ([facility]) Platelets [#/volume] in Blood by Automated count 162 x10E3/uL 135-420 [facility] ([facility]) MPV 9.0 fL 7.0-12.3 [facility]) % Indra 73.6 % 41.0-80.0 [facility]) %Lym 19.7 % 10.0-45.2 [facility] ([facility]) Eosinophils [#/volume] in Blood by Automated count 2.1 % 0.0-8.0 [facility] ([facility]) %Baso 0.4 % 0.0-3.0 [facility]) %Luna 4.2 % 2.0-13.0 [facility]) Lymp 1.0 x10E3/uL 0.6-3.1 [facility]) Luna 0.2 x10E3/uL 0.0-1.0 [facility] Neut 3.9 x10E3/uL 2.0-8.1 [facility] Baso 0.0 x10E3/uL 0.0-0.2 [facility]) Eos 0.1 x10E3/uL 0.0-0.6 [facility] ID Date Data Source [id number] 10/30/2020 11:39:00 AM EST [facility] ([facility]) Name Value Range Interpretation Code Description Data Devi rce(s) Supporting Document(s) Thyroxine (T4) free [Mass/volume] in Serum or Plasma by Dialysis 0.90 ng/dL Normal (applies to non-numeric results) [facility] ([facility]) This test was developed and its performa nce characteristics determined by [facility]. It has not been cleared or approved by the Food and Drug Administration. Reference Range: Pubertal Children and Adults: 0.8 - 1.7 Performed at: [facility] [address] [place] [address] [id number] Microbiology Lab Assistant: Dmitriy Swenson MD, Phone: [phone] Thyrotropin [Units/volume] in Serum or Plasma 8.360 uIU/ML 0. 358-3.740 Above high normal [facility] ([facility]) ID Date Data Source [id number] 10/30/2020 11:39:00 AM EST [facility] ([facility]) Name Value Range Interpretation Code Description Data Devi rce(s) Supporting Document(s) Glucose, Fasting 91 mg/dL 70-100 Normal (applies to non-numeric results) [facility] ([facility]) Blood Urea Nitrogen 71 mg/dL 7-18 Above high normal [facility] ([facility]) Creatinine For GFR 3.47 mg/dL 0.70-1.30 Above high normal [facility] ([facility]) Glomerular Filtration Rate 17.9 Below low normal [facility] ([facility]) <content>Units are mL/min/1.73 m2</content>
<content></content>
<content>Chronic Kidney Disease Staging per NKF:</content>
<content></content>
<content>Stage I & II GFR >=60 Normal to Mildly Decreased</content>
<content>Stage III GFR 30- 59 Moderately Decreased</content>
<content>Stage IV GFR 15-29 Severely Decreased</content>
<content>Stage V GFR <15 Very Little GFR Left</content>
<content>ESRD GFR <15 on GREETING CARD EDITOR</content>
<content></content> Sodium Level 140 meq/L 136-145 Normal (applies to non-numeric res ults) [facility] ([facility]) Chloride Level 107 meq/L 98-107 Normal (applies to non-numeric r esults) [facility] ([facility]) Potassium Serum 5.3 meq/L 3.5-5.1 Above high normal [facility] ([facility]) Carbon Dioxide Level 28 meq/L 21-32 Normal (applies to non-num jerrod results) [facility] ([facility]) Anion Gap 5 meq/L 8-16 Below low normal [facility] ([facility]) Calcium Level 8.5 mg/dL 8.8-10.2 Below low normal [facility] T ([facility]) ID Date Data Source [id number] 10/30/2020 11:39:00 AM EST [facility] Name Value Range Interpretation Code Description Data Devi rce(s) Supporting Document(s) White Blood Count 3.4 10 4.0-10.0 Below low normal [facility] ([facility]) Red Blood Count 2.97 10 4.30-6.10 Below low normal [facility] ([facility]) Hemoglobin 9.2 g/dL 13.5-17.5 Below low normal [facility] ( [facility]) Hematocrit 30.4 % 42.0-52.0 Below low normal [facility]) Mean Corpuscular Hemoglobin 31.0 pg 27.0-33.0 Norm al (applies to non-numeric results) [facility] ([facility]) Mean Corpuscular Volume 102.4 fl 80.0-96.0 Above high normal [facility] ([facility]) Mean Corpuscular HGB Conc 30.3 g/dL 32.0-36.5 Below low normal [facility] ([facility]) Red Cell Distribution Width 13.7 % 11.5-14.5 Norm al (applies to non-numeric results) [facility] ([facility]) Nucleated Red Blood Cell % 0.0 % 0-0 Normal (applies to n on-numeric results) [facility] ([facility]) Platelet Count, Automated 163 10 150-450 Normal (applies to non-numeric results) [facility] ([facility]) ID Date Data Source [id number] 10/28/2020 03:30:30 PM EST [facility] Name Value Range Interpretation Code Description Data Devi rce(s) Supporting Document(s) &PDF [facility] KJTOZq6wIaTSNsWx54/QKWayPYQmu0JdRYujVQi1WMfoRQHjU3KwzRauJC6EU5UPTBdFZXbXPX6eOPQk oRX [file] [facility]+dEV3UcPPTPStqWXkBUrKA/87V959+ZnI7akvV uo4st4Lcy39/e0OyH5uPGQKKr/fH2rF/ayvRvwl9pdA6qGsG8Annel5/Fl3/3mlaKfwgosIkuFOdq29j HG3fFFHilF3Qeh7Z7cR2AsRV/W5ngpw41+HyooMl14kGtKMMCnF/PDOr0BZN6nrjY740xR+O3VO8LpyN p+x3E+HI2n5+Ly4vrD+IL3kB5HkK5Bz3ycR1KQ8Nn9 ocxBR1Gyhi0Ls8R55tXmCeEgMeoi9wxE3wZ+QthnWmqsq8/sE4NB7DzCwhQldSzyKS1MfwGPef0x4lAa bbgbiwkB55F0+GP/YVEMTy/ykfijvzsritnkTf/k+tVwIk8Qu9NtUjT/cPW2KP/c7JjZ8NWhwpR5f4/W /E2ZUxRdQmQmGh2QRT/vmQdHIO2xqaKDj2BG+yCmPo S7RRVBz0rYRpS9N3susmfYKN0ALWmjY5yFLcHoc2Vlf1mqccoyw3e7Qp1wIXWyVomTE5K/1bW6sCAEEN KTYF2QVbMIoT/P+P5D+uFdbD0WwAnGQHu8sZzzUM5HBrEMqubYRgiGUMA4T9UEzdB44pGRRlE7qHhpIg 6FMh+gXf6pN7HJeoRtQF1YWjZ3kHkZYe5Pl3kb3sI8 KlVZlyzY+8IP5dt1hcw5xKrfhQQEkOa8Esj0457X9VEs+qu/3dyntW/ltSsyrORcKjDlVGID12CBLdw0 Z9WDzV3siTtteqDI0xBr7SX1R2UfpU1nXQOvukTCZjAA/4u3/cPVUusl+nSjgQ8MGA4MFI7hs3NtOZIg DQplbmRvYmoNCjUgMCBvYmoNCiAgPDwNCiAgICAvVH [file] G3lNDwRd7DATy9FiTBCcBcQM9VUOc= ID Date Data Source [id number] 10/13/2020 11:11:53 PM EST [facility] Name Value Range Interpretation Code Description Data Devi rce(s) Supporting Document(s) Discharge Summary [facility] NJPKMf7dAwCXJuYq21/NSSmiLFAvc7NxFStgTNb4ACsyFOBqB7HqRNA6qI0mUAU8JAcJIaDvHmAyGvQ5 lbm [file] ICAgICAgICAgICAgICAgICAgICAgICAgICAgICAgICAgICAgICAgICAgICAgICAgICAgICAgICAgICAg ICAgICAgICAgICAgICAgICAgICAgICAgICAgICAgICAgICANCiAgICAgICAgICAgICAgICAgICAgICAg ICAgICAgICAgICAgICAgICAgICAgICAgICAgICAgIC AgICAgICAgICAgICAgICAgICAgICAgICAgICAgICAgICAgICAgICAgICAgICANCiAgICAgICAgICAgIC AgICAgICAgICAgICAgICAgICAgICAgICAgICAgICAgICAgICAgICAgICAgICAgICAgICAgICAgICAgIC AgICAgICAgICAgICAgICAgICAgICAgICAgICANCiAg ICAgICAgICAgICAgICAgICAgICAgICAgICAgICAgICAgICAgICAgICAgICAgICAgICAgICAgICAgICAg ICAgICAgICAgICAgICAgICAgICAgICAgICAgICAgICAgICAgICANCiAgICAgICAgICAgICAgICAgICAg ICAgICAgICAgICAgICAgICAgICAgICAgICAgICAgIC AgICAgICAgICAgICAgICAgICAgICAgICAgICAgICAgICAgICAgICAgICAgICAgICANCiAgICAgICAgIC AgICAgICAgICAgICAgICAgICAgICAgICAgICAgICAgICAgICAgICAgICAgICAgICAgICAgICAgICAgIC AgICAgICAgICAgICAgICAgICAgICAgICAgICAgICAN CiAgICAgICAgICAgICAgICAgICAgICAgICAgICAgICAgICAgICAgICAgICAgICAgICAgICAgICAgICAg ICAgICAgICAgICAgICAgICAgICAgICAgICAgICAgICAgICAgICAgICANCiAgICAgICAgICAgICAgICAg ICAgICAgICAgICAgICAgICAgICAgICAgICAgICAgIC AgICAgICAgICAgICAgICAgICAgICAgICAgICAgICAgICAgICAgICAgICAgICAgICAgICANCiAgICAgIC AgICAgICAgICAgICAgICAgICAgICAgICAgICAgICAgICAgICAgICAgICAgICAgICAgICAgICAgICAgIC AgICAgICAgICAgICAgICAgICAgICAgICAgICAgICAg ICANCiAgICAgICAgICAgICAgICAgICAgICAgICAgICAgICAgICAgICAgICAgICAgICAgICAgICAgICAg ICAgICAgICAgICAgICAgICAgICAgICAgICAgICAgICAgICAgICAgICAgICANCjw/gUIuA5rgkERhovL5 E0pjNc6TYp2EWI7mn0AcWVRqZTetswRlKxtJAlQmGZ AvBkoATia6MCucQD3GpHAqW5QzL2VcPXlmQE9LZCNeHFBgaTTeAJSpGCVmCiE8PSIuRZcwCD5TvDFhDL qePOOxVAUsZgGmTEFvFYKaKAYjKOVfYJVIIW1FLxJsX4AnqE08LGVQLf9+DQplbmRvYmoNCjMxIDAgb2 FzOZx3PB0BRYJmMwtzg0YmIfSrSZDVNBvcJX9PHTM8 WLTfWORqHs3MCVYfE205moZnXN3CEz1ZFoYyFN2diq0ATaTjMZRcFioRQjd7BPaxSJ3PqZWtORkKnIGi rBMoE1ShJ7MoeBStwAFggNBEUWViaHQSMKS7rIckzehwECExPKLaCb3qMiGdKnTbHHW2UGCqQL1zINsr KY3NBTA3IOsqWQGqBVCqH1gRYdZdUWXvAjGgzBxpIP 7FRiOkG0CafuEzsAXqZPPtMPXGSc0+LJhxkzBrIjzXIwRoZAEny8KyXWa7DX8TIPUmKTrtKQ7TXRMhaU 8cPYlaYD3KWoXnEXVpXDBREbEgQ06hvSXgPPm6R7RuCoRnLALbInsnVEYsSMojNqTbTTHcTzMpOHhhBH 4+ID4+FEvlLY5DQHfefvImNBGgIe6MORUdHMNcVK2s FPNrKZGkT8G5bIvhELITPiUgY2thioeeRF3gWZPnL979vMbtugLhWROmJKFaIj6RDMDlWYQ2EGHoiJUd HySnFYHRRQbxPE3PcUUjFAT9bK2eTVdzLTBgWYNfH5cJNzZmhSssMU00xPytivLnbLUgHUw+Mx3SYG1c h7TsULz3myEnOXruGEU3WYstOSEfTNUiECOyNNX2SW K8RAIABaDjMHTvFQThOGmlOOBmMANtqd7TTAQnSUZeWTL9YHJuMNLxSKQvVIleKNRuJNN3IoF5HZBrFN DsOK6DTiKmQGMdQTXlFNqtCRCzOZLfcx2HGURcJWTvAYF9JsJvHXLfTOTsZQppIDHhKSI9IexdHGObZG GwTK1HWjGgEWFsMAj8DBGhBLMoYNOwbx3FPMBeBVWb KCOcXDKsJZEyPVTzUAagNHHoJLPiYOSiCYRmDOWwHZ7AHkRlXHYfTTS6RYScDAFbOOIqed6DNSWvTBJg KdT6WRWuRYXrACKzELpkGQRpMYDpSbx4WIWsPWBzWX7XKcMeARNhTPKdUlerUGMdZYIqkh9RHTGbJBRp QOFeNTVbMVSbBBOjCRavRWCxTCE6YsW2UZDwTXAuPM 8MYbXbDWWwWMD6WrDdQVJzXOSypn7RPYFoJARqVGb7HQTvDPWrCXZdXCtyIONmXBB4PCP7VCPsQMXbZQ 4MYjBlMXMhZTK9SaIwLTUdUCOjxq9OVQIvWFWqNiShVcYdJBMkOTLyPUnhWQXpLFW5DyP8TCXqIIBtVZ 0FCnAiINWbPKoaLmUgBWYrUQChsq8LFYAsHCFbRYH5 ALXoEGDjDKNhQHqeZBJqIRS2CbIeWSWzLJQiDH1NSlLrAVFmJbF3GUXeDXNsJDZsjw7KSXCbBTDwYywj XDAyGDDbFKUhDSsaVTLtCQJ3CIS2NCPsBBYpOL3VEaWeSXRfQjGlNAVlKIEtLLBzgs6JLYVyCAAdRONg DvRiIPFyDBUfIRuxGSEiUYT7RRD0RYMaJSIaWT3WHd IaKZNpRyGwXnXyFNEbEYGzld7ZYRLjNPMuQgC8MCBwYOLiIVTgYKqcFBChKIK3RXQ9KCHgAUIeXH1TBl VuMLabVVKWOdc1HTknN3z5JQQfLY8WJ4Rts8KjYnZuJIWTTKfsKM4ugwUjGRTcKr3RY1iGRvjxAlLvCT RmKUGkTML3FzNuTUs6WbZ8RxW4WWFrZlJcBi5jBPWx ExFhVXW1VFL7KSMsZQXnUYGcNVotKVF3A6MlIjYpUuIzIT9INw2MHaL2BND5sCPnKq7XCtZ1YLwAYaVu WB3LCLm= ID Date Data Source [id number] 10/09/2020 09:31:00 AM EST [facility] ([facility]) Name Value Range Interpretation Code Description Data Devi rce(s) Supporting Document(s) Red Blood Count 2.81 10 4.30-6.10 Below low normal [facility] ([facility]) White Blood Count 6.5 10 4.0-10.0 Normal (applies to non-numeri c results) [facility] ([facility]) Hemoglobin 8.8 g/dL 13.5-17.5 Below low normal [facility] ( [facility]) Hematocrit 28.2 % 42.0-52.0 Below low normal [facility]) Mean Corpuscular Hemoglobin 31.3 pg 27.0-33.0 Norm al (applies to non-numeric results) [facility] ([facility]) Mean Corpuscular Volume 100.4 fl 80.0-96.0 Above high normal [facility] ([facility]) Mean Corpuscular HGB Conc 31.2 g/dL 32.0-36.5 Below low normal [facility] ([facility]) Red Cell Distribution Width 14.6 % 11.5-14.5 Above high normal [facility] ([facility]) Platelet Count, Automated 233 10 150-450 Normal (applies to non-numeric results) [facility] ([facility]) Lymph % 12.6 % 24.0-44.0 Below low normal [facility] ([facility] Neutrophils % 79.3 % 36.0-66.0 Above high normal [facility] ([facility]) Baso % 0.3 % 0.0-1.0 Normal (applies to non-numeric resul ts) [facility] ([facility]) Eos % 3.6 % 0.0-3.0 Above high normal [facility] ([facility]) Luna % 3.9 % 2.0-8.0 Normal (applies to non-numeric resul ts) [facility] ([facility]) Nucleated Red Blood Cell % 0.0 % 0-0 Normal (applies to n on-numeric results) [facility] ([facility]) Immature Granulocyte % 0.3 % 0-3.0 Normal (applies to non-n umeric results) [facility] ([facility]) Neutrophils # 5.1 10 1.5-8.5 Normal (applies to non-numeric re sults) [facility] ([facility]) Lymph # 0.8 10 1.5-5.0 Below low normal [facility] ([facility]) Luna # 0.3 10 0.0-0.8 Normal (applies to non-numeric resul ts) [facility] ([facility]) Eos # 0.2 10 0.0-0.5 Normal (applies to non-numeric resul ts) [facility] ([facility]) Baso # 0.0 10 0.0-0.2 Normal (applies to non-numeric resul ts) [facility] ([facility]) ID Date Data Source [id number] 10/09/2020 09:31:00 AM EST [facility] ([facility]) Name Value Range Interpretation Code Description Data Devi rce(s) Supporting Document(s) Natriuretic peptide.B prohormone N-Terminal [Mass/volu me] in Serum or Plasma 95709 pg/mL Above high normal [facility] ([facility]) ID Date Data Source [id number] 10/09/2020 09:31:00 AM EST [facility] ([facility]) Name Value Range Interpretation Code Description Data Devi rce(s) Supporting Document(s) Glucose, Fasting 97 mg/dL 70-100 Normal (applies to non-numeric results) [facility] ([facility]) Creatinine For GFR 3.95 mg/dL 0.70-1.30 Above high normal [facility] ([facility]) Blood Urea Nitrogen 65 mg/dL 7-18 Above high normal [facility] ([facility]) Sodium Level 141 meq/L 136-145 Normal (applies to non-numeric res ults) [facility]) Glomerular Filtration Rate 15.4 Below low normal [facility] ([facility]) <content>Units are mL/min/1.73 m2</content>
<content></content>
<content>Chronic Kidney Disease Staging per NKF:</content>
<content></content>
<content>Stage I & II GFR >=60 Normal to Mildly Decreased</content>
<content>Stage III GFR 30- 59 Moderately Decreased</content>
<content>Stage IV GFR 15-29 Severely Decreased</content>
<content>Stage V GFR <15 Very Little GFR Left</content>
<content>ESRD GFR <15 on GREETING CARD EDITOR</content>
<content></content> Carbon Dioxide Level 27 meq/L 21-32 Normal (applies to non-num jerrod results) [facility] ([facility]) Potassium Serum 4.7 meq/L 3.5-5.1 Normal (applies to non-numeric results) [facility] ([facility]) Chloride Level 106 meq/L 98-107 Normal (applies to non-numeric r esults) [facility]) Calcium Level 7.6 mg/dL 8.8-10.2 Below low normal [facility] ([facility]) Anion Gap 8 meq/L 8-16 Normal (applies to non-numeric resul ts) [facility] ([facility]) Alt/SGPT 18 U/L 12-78 Normal (applies to non-numeric resul ts) [facility] ([facility]) Ast/Sgot 13 U/L 7-37 Normal (applies to non-numeric resul ts) [facility] ([facility]) Bilirubin,Total 0.4 mg/dL 0.2-1.0 Normal (applies to non-numeric results) [facility] ([facility]) Total Protein 5.6 GM/DL 6.4-8.2 Below low normal [facility] ([facility]) Alkaline Phosphatase 71 U/L 45-117 Normal (applies to non-num jerrod results) [facility] ([facility]) Albumin 2.7 GM/DL 3.2-5.2 Below low normal [facility] ([facility]) Albumin/Globulin Ratio 0.9 Normal (applies to non-n umeric results) [facility] ([facility]) ID Date Data Source [id number] 09/29/2020 09:18:03 AM EST [facility] Name Value Range Interpretation Code Description Data Devi rce(s) Supporting Document(s) History and Physical [facility] BTFXGa5vPmWFExOk77/CHTxbUREwp8CnTNfhZZz9MWyfPQOtH2BbHRP9iN2lQQG7UMxYDgLaIaUzKuP9 lbm QiVlnXArOxJRUkTqzKEoKrCRmpWodvkCOlOM6ZtCF2ZFFvH39wJCStUAQtP2TmELE0WWR+Yt1XYJTckD KkKT9BWzjM3O2oe4lP0GpJ/oxKsh6MGRU0k+wAANBByp9VlU7m5fGu+zQiZ5bAjB619Swe++t2S22uRX TG0lI+f9uTLLyUYPI0PKibALVVfH6+L3fc3LrfgN/r s0ONIfaDw/hMnE7uLM3l9aYyQI4HJiWK2LFbdz+/ybF9gvk34HuFQUgqi7hDHxrHvxK8KHtFifrO3lo8 nt0eKVfTae/Evxra2Yx6IRIOC4B47etKwtVqpVur4w6NYQuIWJuuV6HXVGJkgeHyx+TNT9EMO4DD2Zel 72RMUD3RIbsb/HuF1LHrKjv6SoOFUxhdeQ4DcBauzo JbNMNI9r3lWIlZZpCT2r0mjMhxaiq7ozKigAWsnkSFgmcl8QDM98d30gaSigQwkfQ20vwZlSH8yD8sCP K2KaJM8qNAR3lWK0XUFxscxHjyt+cnZmT1+N6n/+WxlvOxNLyvtHEi45BCERhYSITm8+w5Z1Pi4EXTVm C2eETHR8IuzufxuY3jceGRMrk2X4jw1VwPXD32Tykv xUgGX52r3Px7Q9DCpRZ0oJOgX13w8GGGbN+U7ZrCWm8M5VNvXO3WTOa8+feHRETWKNYA2cLxH2ggJUz/ LybUa6uU7YrSBpsMNEPxS8JwVwG9cbSXagn78Tx7hui9RDRwIS5Ni+HMkWGw3n7w27j0XLtTco74zimf VSI5N2ihPMxLBnuqZlx7U6x14nC6lF8nms6RA3utMn 6AcVJCi/KbMJ4vN2MFsJ4Or3P1RliEO939oyx3QetZz5+Pardo/ACGJe2g8KfClzSzdw8bzZawKAdddjiPu 9nDqNuN5t+IoRIbwRf4EyiZP6jrHl6oRt4bxwHXK4ucJ9/fXwo/j3pFxvXf7IrOFbMefAKLXorKTNAlO Y1NxekgyboT7fIcQMLDsncsicw2g/hRbQITSGiTxCc 88EeEw82DvuCNFACGy9ZzLKQU8ugyS1WpvGxs+sbxNLTujGXpO6UFjSCKzEDQtpncOmWzZojhbJZqgiu 6t3B26N+k7r1T0Uz5C+f5B8n+CXvk1Ldg/hfxe2GmqUbEWRVPBYwHl2f0aP+nGL6vJ3Ew2+yhNHW8pY4 X86pRjJzly4a20CS7TSGBO+WUbpwogZREfOPZi8gTf ecmqIDGTdEjq/uKDqY0ww4yw3sR8ftNolkfdvqvENIiN1PQQK0UYkeH2kxFTTUxTbWYIihfsHULwg7Li g81YqjKb3yuprJCefW/SOzG6vVLSMEyK6aoDGEoX83q26x1c3y+oLxp8+VqgAuHq17yyqcMaSAJk/eep 4s6ntaRcicCijmi5OijolmaBjb9Y+M5gbAe6Wv0iPq IRMA/uVdxjrw6ObAmQnmadTqyO+tHVwDNewrN5ZvBsH8DurAETgHDaxj0Gwwp34SNKUB8R+wsZl4vQvIjw [file] A6KqbCZqLjLK8MHWi= ID Date Data Source [id number] 09/28/2020 11:48:44 AM [facility] Name Value Range Interpretation Code Description Data Devi rce(s) Supporting Document(s) Glucose [Mass/volume] in Capillary blood by Glucometer 132 mg/dL 70- 140 [facility] ID Date Data Source [id number] 09/28/2020 09:34:20 AM EST [facility] Name Value Range Interpretation Code Description Data Devi rce(s) Supporting Document(s) Consultation [facility] RVKMIf1mBbRAGwIw63/BHZroPIWtr3RoQAhcUTp0BPigLJWhZ8PwEWP3dC0kPFH3TQbGWqIyQdPzClTy [facility] [file] T0YNCg== ID Date Data Source [id number] 09/28/2020 09:25:06 AM [facility] Name Value Range Interpretation Code Description Data Devi rce(s) Supporting Document(s) Glucose [Mass/volume] in Capillary blood by Glucometer 86 mg/dL 70- 140 [facility] ID Date Data Source [id number] 09/28/2020 07:48:16 AM [facility] Name Value Range Interpretation Code Description Data Devi rce(s) Supporting Document(s) EKG [facility] OIIRGq2bAmNOAkExn9IhJmMgGZUbSM7nkrg1K0I9tBZhP0WujCVof1abE7IbM7HhMBTeJKWOAD3BzDGu jb2 [file] over short and damage clerk+W+1pq1lCVmYzKTvYrRr8ahpkzACZVbG5PvrgPf2 [file] plant worker/5HKzc+KiXHvBm6yeKjpIE6hYy6Y+iTblv8EQbxnI [file] C28znZ9SlivGkF+24eFDvaAvTZMkDvwlFk6pujSdQDdAY7cR+[facility] [place] [place] [place]+cRKgcPX5DWAGmBkQSpF [file] MCBSCgo+GrjppBRqrOvpWDPEGdS1LBSKYCSPJ0C= ID Date Data Source [id number] 09/28/2020 06:13:06 AM [facility] Name Value Range Interpretation Code Description Data Devi rce(s) Supporting Document(s) Leukocytes [#/volume] in Blood by Automated count 3.7 10*3/uL 4-10 L [facility] Erythrocytes [#/volume] in Blood by Automated count 2.71 10*6/uL 4.6- 6.1 L [facility] Hemoglobin [Mass/volume] in Blood 8.5 g/dL 13.5-18 L [facility] Hematocrit [Volume Fraction] of Blood by Automated count 25.4 % 4 1-53 L [facility] Erythrocyte mean corpuscular volume [Entitic volume] by Auto mated count 93.9 fL 80-96 [facility] Erythrocyte mean corpuscular hemoglobin [Entitic mass] by Automated count 31.2 pg 27-33 [facility] Erythrocyte mean corpuscular hemoglobin concentration [Mass/volume] by Automated count 33.2 g/dL 32.0-36.0 [facility] distribution width [Ratio] by Automated count 15.6 % 11.5-14.5 H [facility] Platelets [#/volume] in Blood by Automated count 126 10*3/uL 150-400 L [facility] ID Date Data Source [id number] 09/28/2020 06:25:11 AM [facility] Name Value Range Interpretation Code Description Data Devi rce(s) Supporting Document(s) Bicarbonate [Moles/volume] in Serum 23 mmol/L 22-29 [facility] Chloride [Moles/volume] in Serum or Plasma 103 mmol/L 98-107 [facility] Creatinine [Mass/volume] in Serum or Plasma 3.02 mg/dL 0.70-1.20 H [facility] Glucose [Mass/volume] in Serum or Plasma 96 mg/dL 70-140 [facility] Potassium [Moles/volume] in Serum or Plasma 4.5 mmol/L 3.4-5.1 [facility] Sodium [Moles/volume] in Serum or Plasma 133 mmol/L 136-145 L [facility] Urea nitrogen [Mass/volume] in Serum or Plasma 45 mg/dL 8-23 H [facility] Anion gap 3 in Serum or Plasma 7 mmol/L 8-15 L [facility] Osmolality of Serum or Plasma by calculation 287 mosm/kg 275-300 [facility] Creatinine/Urea nitrogen [Mass Ratio] in Serum or Plasma 15 [facility] Calcium [Mass/volume] in Serum or Plasma 7.6 mg/dL 8.8-10.2 L [facility] Glomerular filtration rate/1.73 sq M pre dicted among non-blacks [Volume Rate/Area] in Serum or Plasma by Creatinine-based formula (MDRD) >6 0 [facility] Glomerular filtration rate/1.73 sq M pre dicted among blacks [Volume Rate/Area] in Serum or Plasma by Creatinine-based formula (MDRD) >60 [facility] ID Date Data Source [id number] 09/28/2020 06:25:11 AM [facility] Name Value Range Interpretation Code Description Data Devi rce(s) Supporting Document(s) Magnesium [Mass/volume] in Serum or Plasma 1.5 mg/dL 1.6-2.4 L [facility] ID Date Data Source [id number] 09/28/2020 06:25:[address] [facility] Value Range Interpretation Code Description Data Devi rce(s) Supporting Document(s) Phosphate [Mass/volume] in Serum or Plasma 4.3 mg/dL 2.5-4.5 [facility] ID Date Data Source [id number] 09/27/2020 11:02:43 PM [facility] XR CHEST FRONTAL ONLY [id number] RESULTI nterpreted by:SOLE JamesROCEDURE INFORMATION: Exam: XR Chest, 1 View Exam date and time: 09/27/2020 10:46 PM Age: 89 years old Clinical indication: Atrioventricular block, complete; Other: Chest pain, evaluate for pacemaker lead placement TECHNIQUE: Imaging protocol: XR of the chest Views: 1 view. COMPARISON: CR XR CHEST FRONTAL ONLY [id number] PORTABLE 09/26/2020 2:47 PM FINDINGS: Tubes, catheters and devices: Dual-chamber pacemaker on left. Lungs: No consolidation. Pleural spaces: Small left pleural effusion. No pneumothorax. Heart/Mediastinum: Unremarkable. No cardiomegaly. Bones/joints: Unremarkable. IMPRESSION: No significant interval change.THIS DOCUMENT HAS BEEN ELECTRONICALLY SIGNED BY LANRE DOTY MDThis document has been electronically signed by Lanre Doty MD on 09/27/2020 11:02 PM Name Value Range Interpretation Code Description Data Devi rce(s) Supporting Document(s) ID Date Data Source [id number] 09/27/2020 09:56:[address] [facility] Value Range Interpretation Code Description Data Devi rce(s) Supporting Document(s) Glucose [Mass/volume] in Capillary blood by Glucometer 141 mg/dL 70- 140 H [facility] ID Date Data Source [id number] 09/27/2020 09:25:[address] [facility] Value Range Interpretation Code Description Data Devi rce(s) Supporting Document(s) Troponin T.cardiac [Mass/volume] in Serum or Plasma 0.07 ng/mL <0.01 H [facility] ID Date Data Source [id number] 09/27/2020 05:08:[address] [facility] Value Range Interpretation Code Description Data Devi rce(s) Supporting Document(s) Glucose [Mass/volume] in Capillary blood by Glucometer 137 mg/dL 70- 140 [facility] ID Date Data Source [id number] 09/27/2020 12:17:[address] [facility] Value Range Interpretation Code Description Data Devi rce(s) Supporting Document(s) Glucose [Mass/volume] in Capillary blood by Glucometer 164 mg/dL 70- 140 [facility] ID Date Data Source [id number] 09/27/2020 08:53:[address] [facility] Value Range Interpretation Code Description Data Devi rce(s) Supporting Document(s) Glucose [Mass/volume] in Capillary blood by Glucometer 86 mg/dL 70- 140 [facility] ID Date Data Source [id number] 09/27/2020 08:29:[address] [facility] Value Range Interpretation Code Description Data Devi rce(s) Supporting Document(s) [facility] BNTEQt9pNlJFVnQbb3ToPkZqOZCkNI0rsck7T0L0uILrO9EuaBPmv5okY6MyK5ZoCOHpZLAKBN7LiHZu jb2 [file] 7+V7dvCw5hkA8UrtkzjuwRfk5arETaB/Hzzu+pTnzHada7i4wclmulT2JezaTIkZb/Danish+H5bQ25N45c9 +t2ZT+yX6NfJJ6AnY8gdCZ+/r9h77FkNpiF8g0sR3tJ7eT/t0Aq0dglBRiRkio45s7G+kHay2HP15DOA mYUueLvP0+8iQxA/s/N1iuoNCEQls45d93nlM2w1Jv Q5FT5O60eqFvvL4lSXS6aa2Kodi3B0KvdmY3UG5/5GmTxe+x4f3EcDs+pLHdP4x3yv2vc3UlzHG5h92z HjR6qyomTdE1hlM59j7y8ZYU157lr1h4mR5X2KxugxvpTKg9UJ/MvjTTLyb+6qig9awGBkeb/pzRp5+l 6kgJg9JoYqsa27tlh5e1S32Yi44TOtnyrh3XaR6Wa9 SCLzGN2c7z26oq9vCD9+66eUOOOIc4GAhi915cK+OfNbz9N2IjD+5/u0Oz8f+eLnI1/7rYPHchuogpt4 hN/F8ZaML/D9VGN87ZtI81aoOCMTuhLhA53C54oKhXMdqWjUd2kEBKyTTZ0CD7+LqAvrwkSXPYRNYVOY MANAGER CONCRETE+0k55rZ9PrDRnAFkRdNv3aX1hB6ni5rg+942EdW [file] P2byBf5fLnAmWZCOV6Ret0QeHCYoTIIFAr1+XlV3ZFH4eYZqFej3LJF6RzudRGUIXj== ID Date Data Source [id number] 09/27/2020 05:47:17 AM [facility] Name Value Range Interpretation Code Description Data Devi rce(s) Supporting Document(s) Leukocytes [#/volume] in Blood by Automated count 4.3 10*3/uL 4-10 [facility] Erythrocytes [#/volume] in Blood by Automated count 2.84 10*6/uL 4.6- 6.1 L [facility] Hemoglobin [Mass/volume] in Blood 9.0 g/dL 13.5-18 L [facility] Hematocrit [Volume Fraction] of Blood by Automated count 27.0 % 4 1-53 L [facility] Erythrocyte mean corpuscular volume [Entitic volume] by Auto mated count 94.9 fL 80-96 [facility] Erythrocyte mean corpuscular hemoglobin [Entitic mass] by Automated count 31.8 pg 27-33 [facility] Erythrocyte mean corpuscular hemoglobin concentration [Mass/volume] by Automated count 33.5 g/dL 32.0-36.0 [facility] E[facility] distribution width [Ratio] by Automated count 15.9 % 11.5-14.5 H [facility] Platelets [#/volume] in Blood by Automated count 130 10*3/uL 150-400 L [facility] ID Date Data Source [id number] 09/27/2020 06:06:23 AM [facility] Name Value Range Interpretation Code Description Data Devi rce(s) Supporting Document(s) Bicarbonate [Moles/volume] in Serum 22 mmol/L 22-29 [facility] Chloride [Moles/volume] in Serum or Plasma 106 mmol/L 98-107 [facility] Creatinine [Mass/volume] in Serum or Plasma 3.01 mg/dL 0.70-1.20 H [facility] Glucose [Mass/volume] in Serum or Plasma 73 mg/dL 70-140 [facility] Potassium [Moles/volume] in Serum or Plasma 5.2 mmol/L 3.4-5.1 H [facility] Sodium [Moles/volume] in Serum or Plasma 136 mmol/L 136-145 [facility] Urea nitrogen [Mass/volume] in Serum or Plasma 41 mg/dL 8-23 H [facility] Anion gap 3 in Serum or Plasma 9 mmol/L 8-15 [facility] Osmolality of Serum or Plasma by calculation 291 mosm/kg 275-300 [facility] Creatinine/Urea nitrogen [Mass Ratio] in Serum or Plasma 14 [facility] Calcium [Mass/volume] in Serum or Plasma 7.8 mg/dL 8.8-10.2 L [facility] Glomerular filtration rate/1.73 sq M pre dicted among non-blacks [Volume Rate/Area] in Serum or Plasma by Creatinine-based formula (MDRD) >6 0 [facility] Glomerular filtration rate/1.73 sq M pre dicted among blacks [Volume Rate/Area] in Serum or Plasma by Creatinine-based formula (MDRD) >60 [facility] ID Date Data Source [id number] 09/27/2020 06:06:23 AM [facility] Name Value Range Interpretation Code Description Data Devi rce(s) Supporting Document(s) Magnesium [Mass/volume] in Serum or Plasma 1.5 mg/dL 1.6-2.4 L [facility] ID Date Data Source [id number] 09/27/2020 06:06:23 AM [facility] Name Value Range Interpretation Code Description Data Devi rce(s) Supporting Document(s) Phosphate [Mass/volume] in Serum or Plasma 4.3 mg/dL 2.5-4.5 [facility] ID Date Data Source [id number] 09/26/2020 10:58:[address] [facility] Value Range Interpretation Code Description Data Devi rce(s) Supporting Document(s) Magnesium [Mass/volume] in Serum or Plasma 1.5 mg/dL 1.6-2.4 L [facility] ID Date Data Source [id number] 09/26/2020 10:58:19 PM [facility] Name Value Range Interpretation Code Description Data Devi rce(s) Supporting Document(s) Bicarbonate [Moles/volume] in Serum 22 mmol/L 22-29 [facility] Chloride [Moles/volume] in Serum or Plasma 107 mmol/L 98-107 [facility] Creatinine [Mass/volume] in Serum or Plasma 3.11 mg/dL 0.70-1.20 H [facility] Glucose [Mass/volume] in Serum or Plasma 150 mg/dL 70-140 H [facility] Potassium [Moles/volume] in Serum or Plasma 5.8 mmol/L 3.4-5.1 H [facility] Sodium [Moles/volume] in Serum or Plasma 138 mmol/L 136-145 [facility] Urea nitrogen [Mass/volume] in Serum or Plasma 42 mg/dL 8-23 H [facility] Anion gap 3 in Serum or Plasma 8 mmol/L 8-15 [facility] Osmolality of Serum or Plasma by calculation 299 mosm/kg 275-300 [facility] Creatinine/Urea nitrogen [Mass Ratio] in Serum or Plasma 14 [facility] Calcium [Mass/volume] in Serum or Plasma 7.8 mg/dL 8.8-10.2 L [facility] Glomerular filtration rate/1.73 sq M pre dicted among non-blacks [Volume Rate/Area] in Serum or Plasma by Creatinine-based formula (MDRD) >6 0 [facility] Glomerular filtration rate/1.73 sq M pre dicted among blacks [Volume Rate/Area] in Serum or Plasma by Creatinine-based formula (MDRD) >60 [facility] ID Date Data Source [id number] 09/26/2020 09:57:40 PM [facility] Name Value Range Interpretation Code Description Data Devi rce(s) Supporting Document(s) Bicarbonate [Moles/volume] in Serum 22 mmol/L 22-29 [facility] Chloride [Moles/volume] in Serum or Plasma 107 mmol/L 98-107 [facility] Creatinine [Mass/volume] in Serum or Plasma 3.18 mg/dL 0.70-1.20 H [facility] Glucose [Mass/volume] in Serum or Plasma 159 mg/dL 70-140 H [facility] Potassium [Moles/volume] in Serum or Plasma 6.1 mmol/L 3.4-5.1 [facility] HemolyzedResults called to and read back by KEYONNA OTOOLE RN ON 8F AT [phone] BY [phone] Sodium [Moles/volume] in Serum or Plasma 137 mmol/L 136-145 [facility] Urea nitrogen [Mass/volume] in Serum or Plasma 41 mg/dL 8-23 H [facility] Anion gap 3 in Serum or Plasma 7 mmol/L 8-15 L [facility] Osmolality of Serum or Plasma by calculation 297 mosm/kg 275-300 [facility] Creatinine/Urea nitrogen [Mass Ratio] in Serum or Plasma 13 [facility] Calcium [Mass/volume] in Serum or Plasma 7.9 mg/dL 8.8-10.2 L [facility] Glomerular filtration rate/1.73 sq M pre dicted among non-blacks [Volume Rate/Area] in Serum or Plasma by Creatinine-based formula (MDRD) >6 0 [facility] Glomerular filtration rate/1.73 sq M pre dicted among blacks [Volume Rate/Area] in Serum or Plasma by Creatinine-based formula (MDRD) >60 [facility] ID Date Data Source [id number] 09/26/2020 09:57:40 PM [facility] Name Value Range Interpretation Code Description Data Devi rce(s) Supporting Document(s) Magnesium [Mass/volume] in Serum or Plasma 1.6 mg/dL 1.6-2.4 [facility] ID Date Data Source [id number] 09/26/2020 09:57:[address] [facility] Value Range Interpretation Code Description Data Devi rce(s) Supporting Document(s) Phosphate [Mass/volume] in Serum or Plasma 4.4 mg/dL 2.5-4.5 [facility] ID Date Data Source [id number] 09/26/2020 08:42:[address] [facility] Value Range Interpretation Code Description Data Devi rce(s) Supporting Document(s) Glucose [Mass/volume] in Capillary blood by Glucometer 159 mg/dL 70- 140 H [facility] ID Date Data Source [id number] 09/26/2020 05:33:[address] [facility] Value Range Interpretation Code Description Data Devi rce(s) Supporting Document(s) Glucose [Mass/volume] in Capillary blood by Glucometer 86 mg/dL 70- 140 [facility] ID Date Data Source [id number] 09/26/2020 03:33:55 PM [facility] XR CHEST FRONTAL ONLY [id number] RESULTI nterpreted by:Guillermina Rose MDINDICATION: 89-year-old male presenting for initial radiographic evaluation following pacemaker placement.TECHNIQUE: AP views of the chest were obtained with the patient positioned at 30 degrees.Comparison: Chest radiograph dated 04/23/2006.FINDINGS: Lines, Devices, Tubes: Dual lead cardiac pacemaker with the leads overlying the right atrium and right ventricle.Heart: The cardiomediastinal silhouette is grossly normal.Lungs: Low lung volumes with bibasilar atelectasis.Pleura: Persistent elevation of the right hemidiaphragm. Small left pleural effusion. No other evidence of pleural disease.Bones: Moderate to advanced degenerative changes of the acromioclavicular joints and the visualized spine.IMPRESSION: 1. Dual lead cardiac pacemaker with the leads overlying the right atrium and right ventricle.2. Low lung volumes with bibasilar atelectasis.3. Small left pleural effusion.This document has been electronically signed by Cyrus Meadows MD on 09/26/2020 3:31 PM Name Value Range Interpretation Code Description Data Devi rce(s) Supporting Document(s) ID Date Data Source [id number] 09/26/2020 06:08:[address] [facility] Value Range Interpretation Code Description Data Devi rce(s) Supporting Document(s) Glucose [Mass/volume] in Capillary blood by Glucometer 84 mg/dL 70- 140 [facility] ID Date Data Source [id number] 09/26/2020 03:57:[address] [facility] Value Range Interpretation Code Description Data Devi rce(s) Supporting Document(s) Magnesium [Mass/volume] in Serum or Plasma 1.6 mg/dL 1.6-2.4 [facility] ID Date Data Source [id number] 09/26/2020 03:57:[address] [facility] Value Range Interpretation Code Description Data Devi rce(s) Supporting Document(s) Phosphate [Mass/volume] in Serum or Plasma 3.5 mg/dL 2.5-4.5 [facility] ID Date Data Source [id number] 09/26/2020 03:57:14 AM [facility] Name Value Range Interpretation Code Description Data Devi rce(s) Supporting Document(s) Bicarbonate [Moles/volume] in Serum 21 mmol/L 22-29 L [facility] Chloride [Moles/volume] in Serum or Plasma 107 mmol/L 98-107 [facility] Creatinine [Mass/volume] in Serum or Plasma 3.16 mg/dL 0.70-1.20 H [facility] Glucose [Mass/volume] in Serum or Plasma 97 mg/dL 70-140 [facility] Potassium [Moles/volume] in Serum or Plasma 5.0 mmol/L 3.4-5.1 [facility] Sodium [Moles/volume] in Serum or Plasma 135 mmol/L 136-145 L [facility] Urea nitrogen [Mass/volume] in Serum or Plasma 39 mg/dL 8-23 H [facility] Anion gap 3 in Serum or Plasma 7 mmol/L 8-15 L [facility] Osmolality of Serum or Plasma by calculation 289 mosm/kg 275-300 [facility] Creatinine/Urea nitrogen [Mass Ratio] in Serum or Plasma 12 [facility] Calcium [Mass/volume] in Serum or Plasma 8.0 mg/dL 8.8-10.2 L [facility] Glomerular filtration rate/1.73 sq M pre dicted among non-blacks [Volume Rate/Area] in Serum or Plasma by Creatinine-based formula (MDRD) >6 0 [facility] Glomerular filtration rate/1.73 sq M pre dicted among blacks [Volume Rate/Area] in Serum or Plasma by Creatinine-based formula (MDRD) >60 [facility] ID Date Data Source [id number] 09/26/2020 04:11:43 AM [facility] Name Value Range Interpretation Code Description Data Devi rce(s) Supporting Document(s) Leukocytes [#/volume] in Blood by Automated count 6.0 10*3/uL 4-10 [facility] Erythrocytes [#/volume] in Blood by Automated count 3.05 10*6/uL 4.6- 6.1 [facility] Hemoglobin [Mass/volume] in Blood 9.6 g/dL 13.5-18 L [facility] Hematocrit [Volume Fraction] of Blood by Automated count 29.1 % 4 1-53 [facility] Erythrocyte mean corpuscular volume [Entitic volume] by Auto mated count 95.3 fL 80-96 [facility] Erythrocyte mean corpuscular hemoglobin [Entitic mass] by Automated count 31.6 pg 27-33 [facility] Erythrocyte mean corpuscular hemoglobin concentration [Mass/volume] by Automated count 33.2 g/dL 32.0-36.0 [facility] Erythrocyte distribution width [Ratio] by Automated count 16.4 % 11.5-14.5 H [facility] Platelets [#/volume] in Blood by Automated count 124 10*3/uL 150-400 L [facility] Confirmed ID Date Data Source [id number] 09/25/2020 10:19:[address] [facility] Value Range Interpretation Code Description Data Devi rce(s) Supporting Document(s) Glucose [Mass/volume] in Capillary blood by Glucometer 89 mg/dL 70- 140 [facility] ID Date Data Source [id number] 09/25/2020 06:18:[address] [facility] Value Range Interpretation Code Description Data Devi rce(s) Supporting Document(s) Glucose [Mass/volume] in Capillary blood by Glucometer 136 mg/dL 70- 140 [facility] ID Date Data Source [id number] 09/25/2020 06:18:[address] [facility] Value Range Interpretation Code Description Data Devi rce(s) Supporting Document(s) Glucose [Mass/volume] in Capillary blood by Glucometer 53 mg/dL 70- 140 [facility] ID Date Data Source [id number] 09/25/2020 05:13:[address] [facility] Value Range Interpretation Code Description Data Devi rce(s) Supporting Document(s) Glucose [Mass/volume] in Capillary blood by Glucometer 50 mg/dL 70- 140 [facility] ID Date Data Source [id number] 09/25/2020 05:13:[address] [facility] Value Range Interpretation Code Description Data Devi rce(s) Supporting Document(s) Glucose [Mass/volume] in Capillary blood by Glucometer 58 mg/dL 70- 140 [facility] ID Date Data Source [id number] 09/25/2020 04:05:[address] [facility] Value Range Interpretation Code Description Data Devi rce(s) Supporting Document(s) Troponin T.cardiac [Mass/volume] in Serum or Plasma 0.09 ng/mL <0.01 [facility] ID Date Data Source [id number] 09/25/2020 12:32:25 PM [facility] Name Value Range Interpretation Code Description Data Devi rce(s) Supporting Document(s) Glucose [Mass/volume] in Capillary blood by Glucometer 161 mg/dL 70- 140 [facility] ID Date Data Source [id number] 09/25/2020 11:43:20 AM [facility] Name Value Range Interpretation Code Description Data Devi rce(s) Supporting Document(s) [facility] RUUPOz6zVaHPHlIhb8GfJuElVIXaSI3txml5L8A5fEGgE5SxwQQqh9tjF9HuG4WvTCIcUYWNPM5RrTGs jb2 [file] sYpZ85x1/Y0N72Gtl5WUPG9+P7a0tnJTSkcb/RdlGp1yjszAjDAck7sYa/Jose Ramon+Ux6ZCs31Wr7aE2G1Zb [file] Il3RgyCrmwcBgUd8/0aRzanAVN70VoWR/олег/0OK3XEq9Sr8i3uH9gbT+stJQen8fI97Tc5Lity5V4V1 0v472tMKOovrhPB21ush2bjwx92eoTJks7E4g4nJPb q339/P9VPf9/VlTHRfr94ev993rWwrViskBp/kA5A/UZqGfi/hhiczrzc80W9lP380bjc2l1qWNsz0dJ LhPEj8mbD6GvbpF9kirOEa8YSQ+dxbp12f8s6pr1aVY22xB37NqVdE+5eZMn94WrTrTrT5dTircGgjVl eXC78u4/4mjlp5aYVikLkXB3jnG7nb85C2O46otTLa PHV/ea27p+3Zyv6L0h9Opdoq8lmSM5vb+3l7be1i5a0i6qBv92mjAnwDarl+fanre28b/U043w7zEd3Y U+B2bf+aXavST4F52lre4he1hFH12r80PPq6vbgQR+0z1ohW0M+ny/gz2TxQ97jsw5Nvy2BFF9wkCU2J 6vtp/M+CnUASt5oh5cgHp+EbTM+Oqq8m9/vqqe05/r PpRo962Eqb/7+f+zvp5hxY//R9rP/yPtF/Tn/5H28/4JZ8vjiQ42UCg/NkJQYSy71F6s/bej/822ra1E 7FoUO5tNy886fypp8yrFemNDgpTEAH/p8vkZX+me54huwZZSFL/l5roKP234+QVzIL5OrXD+2tcN+ga9 QW/Q+6nPjK/2s/j32wS3C2fvqzjhsOA9G9jlRAB5FF mP8X9z88J5m8p4XdSV4nCkSQ3BiqPd8Ce8Qx1mTgz3SvzRPcRCvhpeS3YxjIi/78rsKrd23UXic3zqfO awlb77Vf4Ys2U13J1d45qmjprzB/tz89rZuW+epAPwA3D5tl5e1YTYfGd3uPjizlEybj45iA47em/cX/ KC757q3+4z25tsQ8ntcC65BtHu/Y777xx1y+ap22yv Lg3ifj36tQ5lJ+iUad6194yk+tw/46sqR+SUP+Xgnk1k6klpZMm6gR63hG79uf5tPpMOTtonfR3rPxL4 nE0Pj2kx2o8ijll5+wawFlvxvRP3K5sKlixi3KTAfAI+QW/QG/R+8AspH95/c+eGmdefpZ/treuAPqAf 0A/oE/o8+hlfPdfQC/XFtHRmj86k/qrqP+sg8uDGa7 Nu8i0lDwcGewvaO+dr9s3HaosHV1DFcyg24jEKf/6uYqq2yO+mx3/m/FX5xpy/mu6Hz5xcBaT0vwspn8 6o4Dm5RSk3q4WlEa8GFm8Ov87kL2Qi/Lpw/YzDc/vLuYZeoVfo2+mnjvHKz//fue+eRpH82oUuZ0+h79 AL4UPrtWUiS/QJ/fl/BTz78Kl079xfWrPV8J/nuSu+ rxZ407mV4253PniaadA0U0/meb2baw7hn+Reixrk6SXp5ds+Ehwf5zjOXFq12+jX/NW+hl6gF+gVeoW+ Qo6AGsQRz5A85tptcux+W/NXdX2+vkidb1fy52QL41dxbBbtAyldN/ix999X+k6q56CxsHumNSdNxzO/ 4da0EhpuywUq6Q/07beotU5t+tne+U0O3fzReSCbK8 Lk6R4gt3E02iwUSwt1n872d18RmMSv7Vn5D35m7TqesYgRV9umy4Wpt+2VpZ/tvZbeoe+7b4d8rzU7ON vha273vRR4a1xur8O1ub4CruIctTfnNfqFzNVksCixXLjWvg6+u9bF74T4b7IvvL/Qn/kNuxLlnPkrkz Vgj9Xxc22Q/LPJ+S46TxI9WsnlbR2Z8reoY4ycWA7/ H2DXQjXzNTfB4JW0o82f3m6yjqAky/iujZ216wqU56Kfr89Cbp+bnvUjw/dLFA4JxO9jhR9dfN5r2osT 11HP9BSA+qBh/rzho8GFOvOiYytUH71cnL3+2ESNDq8i4I0C25by/Br0n5M6Up5iaL1Aaphi14MpvgR5 dAdioE0mzbWbMi0p84H2+jjBdt308s5M81HB1SKK+q WjtdHtSgb9UxxbXLoT/pj9F6BTccrrRC35apRiqpETE0TX3+tn/df8rP+jf85xiUk5Bb40xYrRXxf6Aa 77sFjT2oG+uK+hD+gD+mV5uP4eF+k06zTlHw/G+qB1+HOHP2P+yrA+aFgftA5/eejMpqnwkp07+HPH++ 33us2ya+G6gkdbqqnr7V0W/XlN5oJ4X+0NtDfQXqwP Bds1QCvl5w0C3xR26ID+W1yjbG0benbfveosjQ94ze5TjwNt9pmd/7Wt+GrGCTbO+r6NE2/YgD8P+POA Pw/484A/D/jzgD8P+DPiKxvovwPtHSeetIH/RwP/k4hKFtLQgZsXpX/E/6NE/8T1YCSgPc2Ah0qZA/sa eoPeoHfoHfoOfYc+rIf1HPctI03z82X+5G/4dfI3/L qgF+gFeoVeoW/QN+gNeoPeoXfoO/Qd+uy83W3YC/p1/IxWsOWLUq2lV5/s4r8YOmMD2ZZ7ysuXm/hKln 2736c48r1u6Nt45/bAkw6mrzA63gWi+KqehfbKeb++9bgfv804V5/8q6U//xcTi5ix0JO7eI7hT+gb9A 58n64kl+gd+k88hx8hC+vP8UV33ZklizGHX320kgOn VzOuR7dgvJ2d0LSfxxEZJ121huUhAjAiO5uumY1h0EAnagJJR492pnwe44McC+v7bic/x+2s/7vP1Fv5 Ze64N0wtqN899quLtLV2ithm+VeO/CtHfOWIrxzxlSO+csRXzjxexFfuaK+ljE84LocjyQ+gkJ83Fp5s 4/063q/j/Lfg3z647Ujcbp5qW/yg0ztjqG5pwwK25o u5203pY34brIT8IA/QK/SKctDeiq+W/tTbGmLrH2jisT1d7WHbhkNkNOc9//V+/v62J9pa7rl5zlUaWf QmS4uijV9m8EGfcvGXx7W/5ci/8kB7A+5KjAtVHcHYMoVnhU375n1a58hK+SvH/JVj/soxf+JOg3ONQt mqvrfuI920Un1e05E1T5h72G1Z6iE+8nG+F3zFV+v/ zsD/I8xf+RjQJ/SINzB/5Ql/hgNa86p6SzqruK+ycNn5KpqrwQ+iaHw7Wb5w0e3q+XjmO8zw+E1mjI18 JvTn+6hfp//264JeoBfoFXqF/mtpjCcoubaycvtdehuhvynv2enM51J//bdj/qpj/qpfA/qE/nzvdznj c0d+e0f+PUs2D306To/hAE074Ph9Oi5dGXv0tD+gvY J7AyAp2P/oB/SJ8vF+kd/ekd/eMX/Vkd/aPj3O45bgP/BMinDj9E0x7xVBbgr268eym7igG/cHyhkof0 Ew7QT7Fi1ErgsBcpbpbF3QqhwdadvpFs796z6p+ee+3cl6sxtt48/91i8D1sp4ZsY3kx9arM6N+pzvhb 7iq/XcFV/TuWUxaZ8OkMerwgzFO9dCUo1Y8Y+R394R O7LGGh8fDZa62IWiydXVXyDPU7iIAM46Z/+PuqP/+uac5cOcdhHW5MZ2dowxQgP+6n7yn/uKr+q3Jx+p +5di5UntcnG5vnDD+Cfj6S2OB91Z7t54Nb8ve7T7a5607P/3fvKBez/7q9912R92a96JupO6cnZu+oAe 8pMmb42wIsmAzx3zh1b52K1D7JD68im7b2kx40Ffp8 WicIHzyggUrbpcy752qsB+8tof4BP9Yz+0A4nuksdmqgOaxwWOeeJ4DmL9wC7T2Q9e06P1h9Lc5FaDA0 rH8in5nx1Zugg3fLcIb/YOvN+B95tn/ajnWT/qedaPOvLbO/LbO/Hpm5RaM/684qsqH/5L4UJPzNNLI9 IGWv6R3vK1V/030X+xPtixPhjIb4/r+DUcmq4L5a6C bw/hmbwg0gA71DMGkvu994D9MS3E4shUmBRJAM/QD+uX2Qe36xr50nI4VLXXZ/QKvULfoG/QG/Ror6C9 tN8T6AMmigzLT9N5LxN+AQN9NcG6e3wz27OhZvQs/SK/PRTvF/IDxul7bFqkyAPt0rD2INL+KjB/FZi/ LjdzWvoaWnYCnvytIT78QSrrA83/8xpwt8yl+aOd8S oa3i/mr6Kd+L5oSus94KHUnjK08T67Yd0rj/hseDuLYV1zEL1YcI+FnzR6sl61Fbe/GBVfybp+6dcx/D Jgp7UXh0t14ba1LfGx68KNxbW6Q88/aBj3emgPaXf8mVOmQ583Fq5uN016wC1dw36WHiO/ueb4qzfxCS ul8636viB571gd66/yZz5/4B0k6815kJg76byq/Zj5 5p2wDDCkqlq3x2mhE6r+PaEeN200aZs4tEyxC8/y0t2FcNvmR2n/Rw12aNdf3MwXc84kj4450mmlq1/u 6bh/9wGszqrL87/tveOr+6O3uQ0139Xtg/58J6i26vEztntVc4yf9Q9x7CS4Z00c7wkr5zyQSF7mb5n2 bguI5bl+fpwqi4rbeY/P/Ro91/P5us1CNh4eEP/pOr Os0hjO27DuoulOxBcl2inaUmRF3+M/V55siaDcjlvgC3bV+Too1F8h1JK8J+tl0c/8RmD+KhBfBfYPRu 0fnM+t/Ctb17d+0BbDI2y0r/6le8k68sV/+FAi8yh9gi5idRq16nb4zxr22dC5+u2WR576Go34ufB+5T +y6685qfc05bpXU6+4wqL3tK1sO+lf8C81W/UfJx84 Kr+2vm1dYbeQo37Bb/MOFfT4Bj5NwgDvUZfs9obH9n0Z2ohuf6erub2Z6mKROXz/MlZ+cg0W4w932yFI yX+Old++f0FT7OF+k4I0rvkm6iKkJ17TFmumC7oT/uRPjpXfvq+gp5C2kVUhd5I/7R3Ibx/Ibx/Ibx9X QB/QD+iC0Oz0xY7fjhE8a3F6jjdy/Hr8LeafRGudY9 +L575Duc8bZ0/GELQX+e0D+e0D+o6Agc3AWXEI7lwV+Yny8+x61EXBQppFpc36A1QCRj/Qk88/FO3Vk8 8/oWD8kr0tVgXQCLe9K1Q65oR/b1Vidht/6z3DtsmynRd4hZ/6bTv5/KOd/PnJ4Z2jUS/329DehvfbTr 73WPnt+xp6P/Vf+e2r/iu/ejVq2foI/++jnXz+sfLb +2YndA598xMBre/Sn/n0khk1jwz6vfk5cuIv13vcE/n8Y+W3r2et/MPB41Q1mh2T7s1f3y63z6/9V377 em04x2XRGlhII2uqS/tTxspvX/Y0vN+V376vz/5S7d965rAolf++j4DCa5w+e10b7j/1U2gVf4/X0M/2 Cq2ee4635ekTeDBe/+9w9F9H/7G8516ijtEwcc2+Os arld++r8/43DE+9wa9QW/QO/QOfYe+Qx/QB/QD+gF9Qp/P/91c4guh3ghlYsNa0jYPd4jjx/mNuoa+Qd +gN+Katrin+Wgw9honLkdGnRt+UM5Z/n7u5x4QNYh1Fs4X09/8apL6q5T9b2Hh2T01vvj4c+avfF0/33cD64 YO41TI65PJ37gZ10cA35vY67dF03ioLKeI5Xp6RIav rlXzgW4ZaI6Y1B+NFOgVeoX+pD1J1W7U2Q+VXH939+rHmr/a17i/t9d8H7111BB8HTEgV6qc6GqnA/Mb pS97aiR6NVk80jbDkezhiQAwe09A02ehDw14s/2Gchzln/pabZ3NqP1t9m9I50z9lziiYA48Ja41FF+V sY1YaD7h3l9R27gcT88mufycUpr+sUUeK9chMAjprl vZLd5rZR+GeZ0JaK8r3bjP89PC/PZE/Jose A/vjT04987bCQ3S2bt7WLn1siWzWnacYlR7w6a0X2HWB+Kj F/lWv+jr575bDY81HI5lFK+uPfcOJ6wQoqwd/EtcG4gRkuR9v4t7S+VSL/KpF/lZi/oogd83HBR+3r44 mSb8pVAcJleoUrH8a0u2I3MGL+KpF/lYb3a/Bn5Len dr2Z3paqb/yxBKBF65AO1sBY+xNbnPMySthAW2wtHzrWH2CGaT3ppO+G37iowW3/37Ibmo3e64pMUpc9 He1F/jZqjGFiBamVu7rHt8/mE27wj9dsQ/03/vWMbtm8C/oBfUJ/1dOta0zMMB0MvbKI+e2J/PZEfnsi /hiH5550pdX3mDm/wW00n49Nf/7b0X87+m/H++14vx [file] XYieTQ5vmsJlHOWdCmnmHl9bdRH4ECRjFpgMIy0Lw3SsytX1ecJvIjFyPHb6NpOkGK7M ID Date Data Source [id number] 09/25/2020 11:40:10 AM EST [facility] Name Value Range Interpretation Code Description Data Devi rce(s) Supporting Document(s) [facility] YZLVVv0aHiCZUeJkq0VyExIeBZGxLE9gqwj6Z5Z3fRPlU2CzzEDyo1zaX4VqQ9ZaVXZoVJSUTJ3QcZHu jb2 [file] ZZoJAcMLUENeEu2lkVWFJP9SCXkkWUSIGI2YefLGX1wDOzLUMGOVsKgbylkmCafSY8VzWVFOgJJBTIYS VIOYkXRAOL1H58D4PqJqPKkQvIVZqeTFsrVbCMFKT+Z8GD3B5ClSlsWwJAZEL+Q1XY2J6MoAxpDgNUpK bgRsE3hRaFmcEERmyJXGmGRJYgRDecebJRceoAth80 N9QNFHiNJtDZFXXuYrp7mdUvNWtPKlfGtek3yLdUAByRej45do13wh79nk05yo62gd76ui80jt69od75 lm55fp35nn39ro80ji15wh90jj87bq66qp26qj06gw92ko07um84hd62ak65oh46hi85dw88xi09aq43 bc11ni06zAG1ohz50kx16ta29bu27kh13qn12dg63j l64KaygA+RNlIn+nIHXAsL3Z1gaXqVfRnVJzKvRlwZXPVoI27DMezkFkA9/rY0g8zhw2hS/W1UtgjVr1 zNIj5GGGmIDOIihQXaubuTNjIiiCMjJEiPCXjCgGDMZY4ICKNYLTSBbTMdEfSZtMttB562c828d620z6 64g370c561d225v453q246h765u651h1W+O+s3Hf2b pevJp1Wl75P/hxyv8CqnLX8aCH0EfW+IYDMkzalZpTS35hDgWJUVYvBDJcmjrWyQgqoBkJB47eIsDsUm DDuyWOonbUE7bmJG6RIZ1flM56lyr5TNTPKNGDQtyA6EPKq3HZO2aQCgyBxVJV3qXLfbVxg9Ajp0FwH2 8S2GJXTEYPvRPTXplGqOlal5fWTKGFuAGpczNoVgsf 5UROTrbo5GQYtdiSrdNAIn/bP92ohU9G4Fc9XUI+7LuqySrQVFEbOtLGmwSAsadJW3pfGQ2SJS4byA87 fhhd8cPR0CnA+CJlzQJcFeQUf0sRTkLDYqkuA06qsR9EeT2GCG/mREiQZSBiwLuw7RXiNUhwKKtxZSpu HIvvO38Q43cuqO+D74NrOmPAD5e0eKbzILoJ55ptmT 86f+MkNAqOJvSMXJTsCa5Vg3NsKYnvnfyMvJIiaMDJJK3EqbYMVOWIUZG2c4D5RO9LhYVuWfJMrAXetK wiTsSJkIOFMxxdj+XJVI5kM/jhLnSpbUN2vgYlHM+uL4FeCbzb0dL7fk3vko3uwOd0eYuvA48nc/7S9c nBUwh3SW+gP1zY1zKouJAM5Cn6l7NzVYeKRIQTk8G9 cjFVpRP8dQuz5/GyF0uBJ/vLcfwz7Aaa8U/pqimGYHOPch3KrVEoS8Y5cr61q5ujEAQF1Mr2J80oaZwS h07n9mSOzkxZ4RHl3dEE+2qvcTCtb/C7Vya8NtuP1/rshjXC55EDA7RKR+IAhq1K2GAeE5MskSA5Usg8 SD+aRq8lBnxaXZqF81R94DaYn8HjHm6W2y7E9QS7RH 5W76Z7U0h3mqjYYLhA0JfmBhDSIQquiDWDP7Zu22Z2lQebstYJq6gFpYj0vktVHmU8Cs2JWWe+N64LZ/ jPsy052HuuRhibhls9PB9ewN3FGvRidZNNA/ck6bYVdBILA/r+r372+R2RtjYP5Me/uojuhg6au/32+f 9++/x0bn2uOtGE90N80wckR0k6/PVv/ubtv3/39bf4 WCY4PZ/24melOwmPxca8OvC5+fmQXj/57x++/hrsDUVd18afmY8de58f/n6P5/Pf/+ib67t52kdfe/7w +ePbLz5+3t3BX69+9qtvv/n1x0/ff/P5Nz/xv3t7e/v03a8+f/Nlb6qJOx7/+ubjrz/8/Se4rNrA7+V+ rHvijFDWKeEdvsi2L3+/ffr6N5+//jVsM29d+es3+W P3niaEg11+9vPvvvyHv/GAavri4t8/fqA1H15++9xgbz1s0y/zkzfyo9wmgv5/+khu8krg3txWv0542e PbN9/+1NiQI80+++f/0yS3ud5+9fbdt2/v2p99/ZwiLv61G4o//Nc/blwe5Xvz1usgoj1+lx+//Obvvv md3paBpp++/ert89s/wjp5l5qDJ/v2u0+/+PDzd67+ wt+/PIe8m/7U28cv//1slYshO1v+9k9ff/b56vacyiMDB1/t1tR4qx+Dt+/+7n1e/MmHX/66E65P7y/G e5fa3/u6FrevQtefz95//+7ei1iWwa6h+3gxNa531lGS44+v+AAljB304V/98hd/3t6iwuk/jw59j84/ +/t4i1v27atZ195/w1+7nLdIbD9aV7/08fyU62h80D efvV/iy68/fPv3H9/88q1jM8+/fZjwwegfS39/Drv02qhzV/0e12x75x5/fPX9j6+ahRVeV/3yT3/8t9 //+Q+/+9e3/+N/vf369//+/99t//3o4p845r8//7t/fe3j4P//125/++DZ+quOn+ZyA9nB9bg jn5cMv/rxLNhdQiv2aUi/9D35v+DvevJ0lW/wauPr7 7Pjg8/r6/tTQHbmsAX10+ls+hBiv5Izxxo22p7GKM9Xco3q4/XCx57xt4fbP4+kk0hcKqKrUsO+/+7ff dDB0ImrBu4v/+KcP//Process Stripper+++/viLj9/+AEkyHfJfH6cos49+tDw1mJMG56x/ecB/PTqrP75P0jTM3vfn w69/98f//Nu3P//2P3/3g6u/isuunXzs7jO/sItSez XE54hFq4Uoaxt2/R//83d//n/+w03G1S07/3Nnj85Fe0E4X4i/+v7tX//H+83//k9//RM5M2rfr88lx8 iwf/z803/8/C/s6bgE+Lsn/4P71LqKZ8Trk3xkuz+I+CoM5vddriLl/bhXHuyXP/q1b27cd/2fv/uP// dfOT3s4gZEv/k5r3jSjujc8/39/7/+/XVm9Opt1Tpx /vsPOjh+gH752//xL7/9j9//9o8/+vub6eW//cE2cABjA8/8tyaav5omu/SR26Cf/+hp4hxHQcKEYiGX 4fWBz7/7l//rj7//l/d7+PEq0RePbZ29Crxh7Gc/4z/fx9W/fvE+Q371m//6nelSpVXf/mI9wbx9/Rd8 rb9chf/9R14/XTFh61apu5/9P3/3Nt7+2Q0sY5hIP5 kkx9sB9iNRh9Z+9zqKD0D61+1UETuub37nbnv6/kQ//3348svvfvXt+4t3dzD3dr7R1C8GS/WRBQplbm RiaOAwLX7YAT4av1CaQhS6NIZva5DyGKtyBCg1bCVsZKuygvOqt1EmrocdK1Vlh3ZsTfKzHHGoQxHeCd l0DTYxWmS7fXTxMvZtHKKxH9GbDXVfNzW5CeRwQZMU BW9PBXWpnqMiGaObJAH+TxQuEH8iakjkIPBon6QsEFyuAQjiNWXgV0L7fSzkBTSqM0AcvF22QNNcK8Px sjA7WVD4SAHdZdNzZZGvgYUbQNJaBJW+DaYdZH6hvbpdQVQgh2PvODluIQI0nA6uZMwCBPCHFJtCZWna OqZ7q72ewyDIHGCsHCDdQP2YccQaqRzucgXbfGXyGZ B5CnIjQEJbFqUwOYVoRAFFBICmPAMxHYMvOIFqN6RvoXenILuDNMJRUHxEAMruTfTiz1E4MVUxneRJY7 JOFvLIBWaaOy8BLuHyWcEyWDW2EGPyZ6HcrnSgmWXoJMRNJNyjSmxpMDCuqW0ikDctD4WgXXW2i7KsRZ 9BC5IyNCPwZBRBQJE0s6IpABJuqpusvtsdKoSrJUGf KCZxJROjHR1Uzz0pvJRlmjWsITORZDgxBwnpLM9vvRxkhodtM6QwoGKzOVF+FoTuOE8sfb9+CjEgMCBv Ypg2KTUuPCcsCYQgUGHaCIIwF4xpQAAwWtSdYBTvXzIlNL8Ev4LhxVNbJo1yfxHeTnqZwDAzPbzbUTWg ASScXADrQkODWZTfTPYmTNIsBYP2KBCeOSRwDKaxZN GsKLNyXTI6ITPaTVPnQS1nVsCpGSYgNhM3WbJyCFFdXKEscxYUWEHzYUB5ASLnVEXgMETpDNBtYMxuEV DwFPFgPAPfIEL2XIT7IIGqUoWpWVLfXAUdNFEqFFJmSVOvuuDRGOJuZRIpBNX6RVYeNCFiRRXbQYznZK MdTGHwVPtuDYVaWDPtKK1pQqNdORXmGZQrAWzeTHCd LGBtrqAXMNHkPBAkDPFpASYrABWbVADmEYgqHUEpQKGmPVOtOSMtQCTeVH3kSqUfPHScEOL4LOPdNKZw CLJsyoZNLQMuDUSqTYe0FPDlPLTxBVAwYIykTUPmMOGiJFZ9ASAbPHPzVG0oUsBzUHNqOKY2ByGsYQGo XAGxnvKNSNFjUOAeQJQ5SfTiRICoWZVjZYdfTCQeER QoFUlkJFCwENImZJ1wMiRwRBWyCIElSPqtBUYnWMHdkjAMKIRjBPYwBYWtYmMmHJXnYWTyZWagIOOeZW UuMWAlTCXkSEInFF5yPeBuBSGuLEP9ARzrONUfKQFgoeYXKWEiIMElYKksPRVpPOTgUNNmVZugVHHaGU YvFFG2FSSbEVHtZQ7rHyNuTHSrLEVkJMYmWiO5TePu HaGQbHGrbXsixxl0WIruS8g5ZRVwJZfwEQ3dngVkPKLmVedbJd6svJV3CKTdHlzSEr3Wr2DjmsK3jwQe JaXdXECpCbAfBS6Y ID Date Data Source [id number] 09/25/2020 08:42:44 AM [facility] Name Value Range Interpretation Code Description Data Devi rce(s) Supporting Document(s) Glucose [Mass/volume] in Capillary blood by Glucometer 115 mg/dL 70- 140 [facility] ID Date Data Source [id number] 09/25/2020 07:37:42 AM [facility] Name Value Range Interpretation Code Description Data Devi rce(s) Supporting Document(s) History and Physical [facility] NBEBYe6yYtFAGcLy37/RWQavJUSyv0RiWVglBAd1TBrlFIQuC7NwLKN3aB6dCSZ2IFwNHbMuOkBnVJFx lbm [file] ICAgICAgICAgICAgICAgICAgICAgICAgICAgICAgICAgICAgICAgICAgICAgICANCiAgICAgICAgICAg ICAgICAgICAgICAgICAgICAgICAgICAgICAgICAgIC AgICAgICAgICAgICAgICAgICAgICAgICAgICAgICAgICAgICAgICAgICAgICAgICAgICAgICAgICANCi AgICAgICAgICAgICAgICAgICAgICAgICAgICAgICAgICAgICAgICAgICAgICAgICAgICAgICAgICAgIC AgICAgICAgICAgICAgICAgICAgICAgICAgICAgICAg ICAgICAgICANCiAgICAgICAgICAgICAgICAgICAgICAgICAgICAgICAgICAgICAgICAgICAgICAgICAg ICAgICAgICAgICAgICAgICAgICAgICAgICAgICAgICAgICAgICAgICAgICAgICAgICANCiAgICAgICAg ICAgICAgICAgICAgICAgICAgICAgICAgICAgICAgIC AgICAgICAgICAgICAgICAgICAgICAgICAgICAgICAgICAgICAgICAgICAgICAgICAgICAgICAgICAgIC ANCiAgICAgICAgICAgICAgICAgICAgICAgICAgICAgICAgICAgICAgICAgICAgICAgICAgICAgICAgIC AgICAgICAgICAgICAgICAgICAgICAgICAgICAgICAg ICAgICAgICAgICANCiAgICAgICAgICAgICAgICAgICAgICAgICAgICAgICAgICAgICAgICAgICAgICAg ICAgICAgICAgICAgICAgICAgICAgICAgICAgICAgICAgICAgICAgICAgICAgICAgICAgICANCiAgICAg ICAgICAgICAgICAgICAgICAgICAgICAgICAgICAgIC AgICAgICAgICAgICAgICAgICAgICAgICAgICAgICAgICAgICAgICAgICAgICAgICAgICAgICAgICAgIC AgICANCiAgICAgICAgICAgICAgICAgICAgICAgICAgICAgICAgICAgICAgICAgICAgICAgICAgICAgIC AgICAgICAgICAgICAgICAgICAgICAgICAgICAgICAg ICAgICAgICAgICAgICANCiAgICAgICAgICAgICAgICAgICAgICAgICAgICAgICAgICAgICAgICAgICAg ICAgICAgICAgICAgICAgICAgICAgICAgICAgICAgICAgICAgICAgICAgICAgICAgICAgICAgICANCjw/ kQDmX2jarOZxhrB4J2xuUg3SHp2LTY5nt4IaQKItRS nkfqCdOumTZiFbLYUiCsgJGhu4BXfyWC0IhTRhS5RiT0LnHKzfWP0KUSKaRGJldTUmEKNsPWPaNlS1CA GrACmnVP2HpSWrINzvWWNrZGUxQpXuEHZuJRYwAEOaKEElAXJKTUXzWVZuRwIgPUvkAN2Tx2AxpWX2JU o+Qv0PQP7rs3MlHUihJoRyFJ0jkm7SDXcPElKbE7Yj qgH3RDN6NVJgHf2CIFNoRNXhcBShUHNoCXYNVsPwQ0XdyO07ECRZPl4+EDekqgSpLeiPFuG7XQVbe6Yf OZe5RR6VKVMsOSx1eYGjWLHFJZZ7CLk2LRj6YYfnY5hphVPlBujmDFSmKCDwGB5ySJ4fFFMtVSD9NbMe QVCZOK8RJPZkQDTveKMbEQYxBYSWGX6VDRymBPZ3PS QsuyDreJVySCkbRV5YFAIrezOgDwGzIJLZPCn+Zi1UDJ1tp0XeGUqmEJAkBS7zvc8MDKiYYwMjX9P6tJ RkG7G0ZVzoHn8NHCLeKFCkUdVjXSWUVIagMV0SZD2afwH2EB1JpQOhHPZeBZEcaYGxCXo0K33piUKlJH tbDU5WYVJ+Marga+Wn7SWUKjIGUtGBToSpSsWIVLEfNy C0KlY3KMn6NiT5PpCO89fXycmuHcROexOI3VFQ6eAUOcCWWFQA5FgUKwzW1vhlBfVeXcTPHQSfHxT03n hLNwTVXtZGRuDAZxJs3NBQOeK8UowcCfrTfxmeHmTOZiBMJRFA8NMAcqpjLvaGKyoRbhQD09xQpaMK5H Am4QQwByQY9iid3NtFZxHe2EQRKbIx5WJMNzXAIpVD AgKVY9EOCwNdWgZRlsFZCcVXNrSYL1JWBcUWYmML3PMvBmMYWwBcX8WwZiGBRrSFOqoh0BDMNaECMbPR QbLPNbDKQfASTsQEjpVFFvIXXqVXI7YKOjQCHxEU1ZZcGtFHQqBTE2TBBvKRBjUPPgdx8BIRFtLHYdPo meOHQmFTEmNTZzDZdiWVDaJTF4XyU5DLLvTLXnKT6P GmLcEFVfAVe5ZPmoSNRwYVCrol1OUMKcUMWcMRO9VtXcUDLjYJNuZZxvHFSkSVNtXEX7RZZjMMLhZI6W AiCbIVMoRUJ3QiMhDTHqHJMlou5VKMHmAWTtITrnXDHcHFYmPZWkKBntZGSdDUC0RUg0HFMvSZDaXJ2H JxDiUSQpDHRzFZKwCIAbOHTlvh7CXPXdKCTdWbV1Us DeXRSiOPJvOBueSIGpUZX0OeV4TXEyVPWoNR7GYgFuNYPcPRe7JQFaILSzFOLecq3BBMOvHDTuJFOvUB GmSWRxJMPxMSfjHYPsECZ6EhDlJREfVJTpSP1LFaIhNYTxJLg6HQQdVDMsWMIcss6COLQfDMOzQOf8SH BjLCJcNSGuPCwfBXVvXJKyRPM2JZSeVBPqVZ3ZQbCc UXZkVdDrOxFrZAHeKCJsmt1MXKRbHZFsQSKkSvFvUNHuJWBkZXgkOQDsHJMzWIT7MDCpJHDxUV1NQoDm SZXhYvHaQTLmBLGtTTGcec0ZCOFyJDVgBiN5WgReONCvJFLyWQxmJIZnYZVpKST1HRWfHXQoAS2DBqRk LFBqVxC7NsPbLYFfZOIgck0OPYLeWYEtRsF6XRIqNM SqATSjWTaxKLBaKHScXCY3JIClZWDeGH5FAsOkFXHaSdImGhBsUAEfIPBsfq9WAYHtETJaAZmtYHZkPN MiSDMpLYleKYOjILE0IHZ5FGIlZBIzPO0VUoJaWRYtGwD4MLIyXNGlCUVfqt0XgXXncFxahg8RGKyNBx 0GlMczOAN8VXfeNd0bxVCiSYWdDXMDBk2UpaBiVLNb CZYGTToaAPBtSVN7PZN5PNnlKpI6CTYzAJY5PCQrYwZ5BOW1NHVaUZIzCkZ7GTe5ElC3AUHpZQjjKBY6 AjXgEkKqDoj5HTHoMNRtRfF+KS3bJUz+Gp1[id number]== ID Date Data Source [id number] 09/25/2020 05:56:18 AM EST [facility] Name Value Range Interpretation Code Description Data Devi rce(s) Supporting Document(s) Leukocytes [#/volume] in Blood by Automated count 6.8 10*3/uL 4-10 [facility] Erythrocytes [#/volume] in Blood by Automated count 3.04 10*6/uL 4.6- 6.1 L [facility] Hemoglobin [Mass/volume] in Blood 9.6 g/dL 13.5-18 L [facility] Hematocrit [Volume Fraction] of Blood by Automated count 29.2 % 4 1-53 L [facility] Erythrocyte mean corpuscular volume [Entitic volume] by Auto mated count 95.9 fL 80-96 [facility] Erythrocyte mean corpuscular hemoglobin [Entitic mass] by Automated count 31.5 pg 27-33 [facility] Erythrocyte mean corpuscular hemoglobin concentration [Mass/volume] by Automated count 32.9 g/dL 32.0-[facility] width [Ratio] by Automated count 16.9 % 11.5-14.5 H [facility] Platelets [#/volume] in Blood by Automated count 143 10*3/uL 150-400 L [facility] ID Date Data Source [id number] 09/25/2020 06:12:26 AM [facility] Name Value Range Interpretation Code Description Data Devi rce(s) Supporting Document(s) Magnesium [Mass/volume] in Serum or Plasma 2.0 mg/dL 1.6-2.4 [facility] ID Date Data Source [id number] 09/25/2020 06:12:26 AM [facility] Name Value Range Interpretation Code Description Data Devi rce(s) Supporting Document(s) Phosphate [Mass/volume] in Serum or Plasma 3.2 mg/dL 2.5-4.5 [facility] ID Date Data Source [id number] 09/25/2020 06:12:26 AM [facility] Name Value Range Interpretation Code Description Data Devi rce(s) Supporting Document(s) Bicarbonate [Moles/volume] in Serum 18 mmol/L 22-29 [facility] Chloride [Moles/volume] in Serum or Plasma 110 mmol/L 98-107 [facility] Creatinine [Mass/volume] in Serum or Plasma 3.12 mg/dL 0.70-1.20 [facility] Glucose [Mass/volume] in Serum or Plasma 164 mg/dL 70-140 [facility] Potassium [Moles/volume] in Serum or Plasma 5.0 mmol/L 3.4-5.1 [facility] Sodium [Moles/volume] in Serum or Plasma 139 mmol/L 136-145 [facility] Urea nitrogen [Mass/volume] in Serum or Plasma 39 mg/dL 8-23 [facility] Anion gap 3 in Serum or Plasma 11 mmol/L 8-15 [facility] Osmolality of Serum or Plasma by calculation 301 mosm/kg 275-300 [facility] Creatinine/Urea nitrogen [Mass Ratio] in Serum or Plasma 13 [facility] Calcium [Mass/volume] in Serum or Plasma 8.0 mg/dL 8.8-10.2 L [facility] Glomerular filtration rate/1.73 sq M pre dicted among non-blacks [Volume Rate/Area] in Serum or Plasma by Creatinine-based formula (MDRD) >6 0 [facility] Glomerular filtration rate/1.73 sq M pre dicted among blacks [Volume Rate/Area] in Serum or Plasma by Creatinine-based formula (MDRD) >60 [facility] ID Date Data Source [id number] 09/25/2020 05:21:[address] [facility] Value Range Interpretation Code Description Data Devi rce(s) Supporting Document(s) Glucose [Mass/volume] in Capillary blood by Glucometer 162 mg/dL 70- 140 H [facility] ID Date Data Source [id number] 09/25/2020 04:29:[address] [facility] Value Range Interpretation Code Description Data Devi rce(s) Supporting Document(s) Glucose [Mass/volume] in Capillary blood by Glucometer 181 mg/dL 70- 140 H [facility] ID Date Data Source [id number] 09/25/2020 03:50:[address] [facility] Value Range Interpretation Code Description Data Devi rce(s) Supporting Document(s) Glucose [Mass/volume] in Capillary blood by Glucometer 177 mg/dL 70- 140 H [facility] ID Date Data Source [id number] 09/25/2020 03:19:[address] [facility] Value Range Interpretation Code Description Data Devi rce(s) Supporting Document(s) Glucose [Mass/volume] in Capillary blood by Glucometer 197 mg/dL 70- 140 H [facility] ID Date Data Source [id number] 09/25/2020 02:58:[address] [facility] Value Range Interpretation Code Description Data Devi rce(s) Supporting Document(s) Glucose [Mass/volume] in Capillary blood by Glucometer 213 mg/dL 70- 140 H [facility] ID Date Data Source [id number] 09/25/2020 12:52:[address] [facility] Value Range Interpretation Code Description Data Devi rce(s) Supporting Document(s) Leukocytes [#/volume] in Blood by Automated count 6.8 10*3/uL 4-10 [facility] Erythrocytes [#/volume] in Blood by Automated count 3.21 10*6/uL 4.6- 6.1 [facility] Hemoglobin [Mass/volume] in Blood 10.1 g/dL 13.5-18 [facility] Hematocrit [Volume Fraction] of Blood by Automated count 31.3 % 4 1-53 [facility] Erythrocyte mean corpuscular volume [Entitic volume] by Auto mated count 97.5 fL 80-96 [facility] Erythrocyte mean corpuscular hemoglobin [Entitic mass] by Automated count 31.4 pg 27-33 [facility] Erythrocyte mean corpuscular hemoglobin concentration [Mass/volume] by Automated count 32.2 g/dL 32.0-36.0 [facility] distribution width [Ratio] by Automated count 17.0 % 11.5-14.5 [facility] Platelets [#/volume] in Blood by Automated count 137 10*3/uL 150-400 [facility] ID Date Data Source [id number] 09/25/2020 01:14:57 AM [facility] Name Value Range Interpretation Code Description Data Devi rce(s) Supporting Document(s) Bicarbonate [Moles/volume] in Serum 19 mmol/L 22-29 L [facility] Chloride [Moles/volume] in Serum or Plasma 111 mmol/L 98-107 H [facility] Creatinine [Mass/volume] in Serum or Plasma 3.02 mg/dL 0.70-1.20 H [facility] Glucose [Mass/volume] in Serum or Plasma 291 mg/dL 70-140 H [facility] Potassium [Moles/volume] in Serum or Plasma 5.7 mmol/L 3.4-5.1 [facility] Sodium [Moles/volume] in Serum or Plasma 137 mmol/L 136-145 [facility] Urea nitrogen [Mass/volume] in Serum or Plasma 38 mg/dL 8-23 H [facility] Anion gap 3 in Serum or Plasma 7 mmol/L 8-15 L [facility] Osmolality of Serum or Plasma by calculation 304 mosm/kg 275-300 H [facility] Creatinine/Urea nitrogen [Mass Ratio] in Serum or Plasma 13 [facility] Calcium [Mass/volume] in Serum or Plasma 7.8 mg/dL 8.8-10.2 L [facility] Glomerular filtration rate/1.73 sq M pre dicted among non-blacks [Volume Rate/Area] in Serum or Plasma by Creatinine-based formula (MDRD) >6 0 [facility] Glomerular filtration rate/1.73 sq M pre dicted among blacks [Volume Rate/Area] in Serum or Plasma by Creatinine-based formula (MDRD) >60 [facility] ID Date Data Source [id number] 09/25/2020 01:14:[address] [facility] Value Range Interpretation Code Description Data Devi rce(s) Supporting Document(s) Magnesium [Mass/volume] in Serum or Plasma 1.7 mg/dL 1.6-2.4 [facility] ID Date Data Source [id number] 09/25/2020 01:14:[address] [facility] Value Range Interpretation Code Description Data Devi rce(s) Supporting Document(s) Phosphate [Mass/volume] in Serum or Plasma 2.9 mg/dL 2.5-4.5 [facility] ID Date Data Source [id number] 09/25/2020 12:31:[address] [facility] Value Range Interpretation Code Description Data Devi rce(s) Supporting Document(s) Glucose [Mass/volume] in Capillary blood by Glucometer 210 mg/dL 70- 140 H [facility] ID Date Data Source [id number] 09/24/2020 11:15:[address] [facility] Value Range Interpretation Code Description Data Devi rce(s) Supporting Document(s) Glucose [Mass/volume] in Capillary blood by Glucometer 223 mg/dL 70- 140 H [facility] ID Date Data Source [id number] 09/24/2020 10:27:00 PM EST [facility] Name Value Range Interpretation Code Description Data Devi rce(s) Supporting Document(s) SARS-CoV-2 RNA 2019 nCoV Real-Time RT-PCR: NOT DETECTED [facility] This lab was ordered by [facility] and reported by [facility]. ID Date Data Source [id number] 09/25/2020 11:51:[address] [facility] Value Range Interpretation Code Description Data Devi rce(s) Supporting Document(s) Specimen source [Identifier] of Unspecified specimen [facility] SARS-CoV-2 RNA 2019 nCoV Real-Time RT-PCR: NOT DETECTED [facility] Assay Performed [facility] Patients first test for [facility] Patient employed in healthcare setting [facility] Patient has symptoms related to [facility] When did you start to experience these symptoms [Date and time] [Phen X] [facility] Patient was hospitalized because of this [facility] patient was admitted to ICU for [facility] Patient resides in a congregate care setting [facility] status [facility] ID Date Data Source [id number] 09/24/2020 10:25:[address] [facility] Value Range Interpretation Code Description Data Devi rce(s) Supporting Document(s) Glucose [Mass/volume] in Capillary blood by Glucometer 158 mg/dL 70- 140 H [facility] ID Date Data Source [id number] 09/24/2020 09:50:[address] [facility] Value Range Interpretation Code Description Data Devi rce(s) Supporting Document(s) Glucose [Mass/volume] in Capillary blood by Glucometer 126 mg/dL 70- 140 [facility] ID Date Data Source [id number] 09/24/2020 09:08:[address] [facility] Value Range Interpretation Code Description Data Devi rce(s) Supporting Document(s) Glucose [Mass/volume] in Capillary blood by Glucometer 122 mg/dL 70- 140 [facility] ID Date Data Source [id number] 09/24/2020 08:28:[address] [facility] Value Range Interpretation Code Description Data Devi rce(s) Supporting Document(s) Glucose [Mass/volume] in Capillary blood by Glucometer 113 mg/dL 70- 140 [facility] ID Date Data Source [id number] 09/24/2020 07:27:05 PM [facility] Name Value Range Interpretation Code Description Data Devi rce(s) Supporting Document(s) Leukocytes [#/volume] in Blood by Automated count 5.5 10*3/uL 4-10 [facility] Erythrocytes [#/volume] in Blood by Automated count 3.47 10*6/uL 4.6- 6.1 L [facility] Hemoglobin [Mass/volume] in Blood 11.0 g/dL 13.5-18 L [facility] Hematocrit [Volume Fraction] of Blood by Automated count 33.4 % 4 1-53 L [facility] Erythrocyte mean corpuscular volume [Entitic volume] by Auto mated count 96.1 fL 80-96 [facility] Erythrocyte mean corpuscular hemoglobin [Entitic mass] by Automated count 31.5 pg 27-33 [facility] Erythrocyte mean corpuscular hemoglobin concentration [Mass/volume] by Automated count 32.8 g/dL 32.0-36.0 [facility] Erythrocyte distribution width [Ratio] by Automated count 16.9 % 11.5-14.5 [facility] Platelets [#/volume] in Blood by Automated count 138 10*3/uL 150-400 L [facility] ID Date Data Source [id number] 09/24/2020 07:58:[address] [facility] Value Range Interpretation Code Description Data Devi rce(s) Supporting Document(s) Thyroxine (T4) free [Mass/volume] in Serum or Plasma 1.11 ng/dL 0.93- 1.70 [facility] ID Date Data Source [id number] 09/24/2020 07:58:[address] [facility] Value Range Interpretation Code Description Data Devi rce(s) Supporting Document(s) Bicarbonate [Moles/volume] in Serum 18 mmol/L 22-29 L [facility] Chloride [Moles/volume] in Serum or Plasma 113 mmol/L 98-107 H [facility] Creatinine [Mass/volume] in Serum or Plasma 2.97 mg/dL 0.70-1.20 H [facility] Glucose [Mass/volume] in Serum or Plasma 92 mg/dL 70-140 [facility] Potassium [Moles/volume] in Serum or Plasma 5.7 mmol/L 3.4-5.1 H [facility] Sodium [Moles/volume] in Serum or Plasma 142 mmol/L 136-145 [facility] Urea nitrogen [Mass/volume] in Serum or Plasma 39 mg/dL 8-23 H [facility] Anion gap 3 in Serum or Plasma 11 mmol/L 8-15 [facility] Osmolality of Serum or Plasma by calculation 303 mosm/kg 275-300 H [facility] Creatinine/Urea nitrogen [Mass Ratio] in Serum or Plasma 13 [facility] Calcium [Mass/volume] in Serum or Plasma 8.6 mg/dL 8.8-10.2 L [facility] Glomerular filtration rate/1.73 sq M pre dicted among non-blacks [Volume Rate/Area] in Serum or Plasma by Creatinine-based formula (MDRD) >6 0 [facility] Glomerular filtration rate/1.73 sq M pre dicted among blacks [Volume Rate/Area] in Serum or Plasma by Creatinine-based formula (MDRD) >60 [facility] ID Date Data Source [id number] 09/24/2020 07:58:22 PM [facility] Name Value Range Interpretation Code Description Data Devi rce(s) Supporting Document(s) Phosphate [Mass/volume] in Serum or Plasma 3.2 mg/dL 2.5-4.5 [facility] ID Date Data Source [id number] 09/24/2020 07:58:[address] [facility] Value Range Interpretation Code Description Data Devi rce(s) Supporting Document(s) Magnesium [Mass/volume] in Serum or Plasma 1.3 mg/dL 1.6-2.4 [facility] ID Date Data Source [id number] 09/24/2020 07:58:[address] [facility] Value Range Interpretation Code Description Data Devi rce(s) Supporting Document(s) Triiodothyronine (T3) Free [Mass/volume] in Serum or Plasma 1.67 pg/mL 2.00-4.40 [facility] ID Date Data Source [id number] 09/24/2020 07:58:[address] [facility] Value Range Interpretation Code Description Data Devi rce(s) Supporting Document(s) Natriuretic peptide.B prohormone N-Terminal [Mass/volume] in Serum or Plasma <450 H [facility] ID Date Data Source [id number] 09/24/2020 07:52:55 PM EST [facility] Name Value Range Interpretation Code Description Data Devi rce(s) Supporting Document(s) Hemoglobin A1c/Hemoglobin.total in Blood by HPLC 5.1 % 4.0-6.0 [facility] (NOTE)<5.7% Average risk of diabetes (ADA)5.7-6.4% Increased risk of diabetes(ADA)>/= 6.5% Diagnostic for diabetes(ADA) Glucose mean value [Mass/volume] in Blood Estimated fr om glycated hemoglobin 99 mg/dL <126 [facility] ID Date Data Source [id number] 09/24/2020 06:53:20 PM EST [facility] Name Value Range Interpretation Code Description Data Devi rce(s) Supporting Document(s) Glucose [Mass/volume] in Capillary blood by Glucometer 83 mg/dL 70- 140 [facility] ID Date Data Source [id number] 09/24/2020 01:36:00 PM [facility] Name Value Range Interpretation Code Description Data Devi rce(s) Supporting Document(s) SARS coronavirus 2 RNA [Presence] in Res piratory specimen by BEKA with probe detection NEGATIVE [facility] This lab was ordered by [facility] a nd reported by [facility]. ID Date Data Source [id number] 09/02/2020 05:29:15 PM EST [facility] Name Value Range Interpretation Code Description Data Devi rce(s) Supporting Document(s) &PDF [facility] IQRCAr2yAiCSFxFs77/LDLnrJFNpg0DoITwxYMa1BRvlWVSlR2RqsDbaLB6MJ8DAWMwTCUnFUS9zLEBd oRX [file] AgICAgICAgICAgICAgICAgICAgICAgICAgICAgICAg ICAgICAgICAgICAgICAgICAgICAgICAgICAgICAgICAgICAgICAgICAgICAgICAgICAgICAgICAgICAg ICAgICAgICANCiAgICAgICAgICAgICAgICAgICAgICAgICAgICAgICAgICAgICAgICAgICAgICAgICAg ICAgICAgICAgICAgICAgICAgICAgICAgICAgICAgIC AgICAgICAgICAgICAgICAgICANCiAgICAgICAgICAgICAgICAgICAgICAgICAgICAgICAgICAgICAgIC AgICAgICAgICAgICAgICAgICAgICAgICAgICAgICAgICAgICAgICAgICAgICAgICAgICAgICAgICAgIC ANCiAgICAgICAgICAgICAgICAgICAgICAgICAgICAg ICAgICAgICAgICAgICAgICAgICAgICAgICAgICAgICAgICAgICAgICAgICAgICAgICAgICAgICAgICAg ICAgICAgICAgICANCiAgICAgICAgICAgICAgICAgICAgICAgICAgICAgICAgICAgICAgICAgICAgICAg ICAgICAgICAgICAgICAgICAgICAgICAgICAgICAgIC AgICAgICAgICAgICAgICAgICAgICANCiAgICAgICAgICAgICAgICAgICAgICAgICAgICAgICAgICAgIC AgICAgICAgICAgICAgICAgICAgICAgICAgICAgICAgICAgICAgICAgICAgICAgICAgICAgICAgICAgIC AgICANCiAgICAgICAgICAgICAgICAgICAgICAgICAg ICAgICAgICAgICAgICAgICAgICAgICAgICAgICAgICAgICAgICAgICAgICAgICAgICAgICAgICAgICAg ICAgICAgICAgICAgICANCiAgICAgICAgICAgICAgICAgICAgICAgICAgICAgICAgICAgICAgICAgICAg ICAgICAgICAgICAgICAgICAgICAgICAgICAgICAgIC AgICAgICAgICAgICAgICAgICAgICAgICANCiAgICAgICAgICAgICAgICAgICAgICAgICAgICAgICAgIC AgICAgICAgICAgICAgICAgICAgICAgICAgICAgICAgICAgICAgICAgICAgICAgICAgICAgICAgICAgIC AgICAgICANCiAgICAgICAgICAgICAgICAgICAgICAg ICAgICAgICAgICAgICAgICAgICAgICAgICAgICAgICAgICAgICAgICAgICAgICAgICAgICAgICAgICAg ICAgICAgICAgICAgICAgICANCjw/kCLnT9wzeSSrdmI4B9diVf1EEc7DSX9cy8TyRKWcTQjjguVzGmpS ThUdXVVyJahBVgb2TOirZM8DtRVmT0TlT0AiLZkrWA 5TIMKtSWIveWHtSZAcMZFeBmG1EUEzVJolRB7VfNXnAFkgIHZpYFNoIzWaNEPfNY4WPYLeU823epYtYt 7WJb5KYmJeEL3uto7DTxXiWUCzRgoXLxb3LGfeEH4MyMAaY8WbfLWpz6aCUkBcJ4ZHXWX3OMPsBh5BUD ZzFzPfMFOiSKbbBR7zVLMkGPXUfPnyppA3CO2QSK6f heJqIJ8HMpDxOz7kUo0MGxKbQ0OjJ5OxNMCzKNNOHWwjNO8FWPEwCYL9LFYpPSGjWJPZEfGxV26vRN9H J7Jbw68kMcM2ZHJgQlRgKGswPZ97qOscmlGmhRVvhFttRA8HLw4+DQplbmRvYmoNCnhyZWYNCjAgMjIN RkCgYXAnAOZjHVZePyC8VlWqZu4RYQBqSJAeYVWeYc YgLCCiXZVlESxlIKHoOMI9DyrdBFFdSFYwAW2VInTpWTZoSvO0YnAyZYPdBINaai1SRMVxGFMgPYR3RQ QpRXRvSXZkBAntIFSbIKPbHKR6EATqNDZjKB9EUpExOVBpLKN4SHYoDSUxEOGpwl2WTAKcVPYqWNisJJ EvRTDfHYKgAAlfGBGkIGY8SSWpZKCqZJXdVI0CBcUb NRKkDGA2NhOkAINhJNZfzr4DBXNwBWAdEzG6BpWaZIEmBJUsTMrkUDBnLJU4MoM9LBEvABJcHA9RVxEt SMQjFHebJDdlCPBuRLXagf3SONNeOBCsUNQkEIVhSKQaLKBlACmeZVUtTER3GBw1UFFlMQJgVR5FCbCk RJMaMMm8JESwAUCyJDPjzh3TCZHuOHScXYs8UeXuPP AhUCRcKAhpMAQhUOZ1TJRpJYQyWYEkQK8YIcXuOYQyZKD7KsJbEGVdQTRcxx8ADIAtQHDhUHK0QFSjXD VfCTCoZRplQZNhCLE0GBapNZIyOMJyGN8BDhTcZEVkLnU5ZaIyNJDgKCQsub5OpZDqwHwlet5GRZvOSu 1HfYogIKYjBAskWh1crVNcFHVkCGVEFi3SkdUwBKXs FPAVCBgjVVGmTOU3JPY0GEIeRnIaJzJdHjB2XaKhRzTeWgXlMRWhDJSkAcJ7YPO1PMJhMJWqCCNzVSXp Hww3F7MzPSK3WfZfURK0EIV+OO4sNZq+Fe6Cz2GbdlP4iwUaMMwiVNrzZt2XAMTLR6NRLc== ID Date Data Source [id number] 07/26/2020 04:04:00 PM EST [facility] ([facility]) Name Value Range Interpretation Code Description Data Devi rce(s) Supporting Document(s) CPK Creatine Phosphokinase 167 U/L 39-308 Kailee l (applies to non-numeric results) [facility] ([facility]) MB/CK Relative Index 3.11 Normal (applies to non-num jerrod results) [facility] ([facility]) <content>DIAGNOSIS CRITERIA</content>
<content>MMB ng/ml Relative Index (RI)</content>
<content>NON-AMI < or = 5 N/A</content>
<content>WALTON ZONE > 5 < or = 4</content>
<content>AMI > 5 > 4</content>
<content></content> CK-MB Value Mass 5.2 ng/mL Above high normal [facility]) Troponin I 0.04 ng/mL Significant change down [facility] ([facility]) <content>Troponin I Reference Interval f or Siemens [place] LOCI:</content>
<content></content>
<content>99th Percentile= 0.00-0.045 ng/ml</content>
<content></content>
<content>Risk Stratification:</content>
<content><= 0.10 ng/ml Decreased Risk for Adverse Clinical</content>
<content>Events.</content>
<content>0.10-1.50 ng/ml Increased Risk for Adverse Clinical</content>
<content>Events. Evaluation of additional</content>
<content>criterion and/or repeat testing in 2-6</content>
<content>hours is suggested to rule out myocardial</content>
<content>damage.</content>
<content>>= 1.50 ng/ml Indicative of Myocardial Injury.</content>
<content></content> ID Date Data Source [id number] 07/26/2020 01:12:00 PM EST [facility] ([facility]) Name Value Range Interpretation Code Description Data Devi rce(s) Supporting Document(s) Lipase [Enzymatic activity/volume] in Serum or Plasma 158 U/L 73-393 Normal (applies to non-numeric results) [facility] Natriuretic peptide.B prohormone N-Terminal [Mass/volu me] in Serum or Plasma 2213 pg/mL Above high normal [facility] ([facility]) Thyrotropin [Units/volume] in Serum or Plasma 5.180 uIU/ML 0. 358-3.740 Above high normal [facility] ([facility]) ID Date Data Source [id number] 07/26/2020 01:12:00 PM EST [facility] ([facility]) Name Value Range Interpretation Code Description Data Devi rce(s) Supporting Document(s) Glucose, Fasting 110 mg/dL 70-100 Above high normal [facility]) Blood Urea Nitrogen 61 mg/dL 7-18 Above high normal [facility] ([facility]) Creatinine For GFR 3.31 mg/dL 0.70-1.30 Above high normal [facility] ([facility]) Glomerular Filtration Rate 18.9 Below low normal [facility] ([facility]) <content>Units are mL/min/1.73 m2</content>
<content></content>
<content>Chronic Kidney Disease Staging per NKF:</content>
<content></content>
<content>Stage I & II GFR >=60 Normal to Mildly Decreased</content>
<content>Stage III GFR 30- 59 Moderately Decreased</content>
<content>Stage IV GFR 15-29 Severely Decreased</content>
<content>Stage V GFR <15 Very Little GFR Left</content>
<content>ESRD GFR <15 on GREETING CARD EDITOR</content>
<content></content> Sodium Level 137 meq/L 136-145 Normal (applies to non-numeric res ults) [facility] ([facility]) Chloride Level 106 meq/L 98-107 Normal (applies to non-numeric r esults) [facility] ([facility]) Potassium Serum 4.7 meq/L 3.5-5.1 Normal (applies to non-numeric results) [facility] ([facility]) Carbon Dioxide Level 28 meq/L 21-32 Normal (applies to non-num jerrod results) [facility] ([facility]) Anion Gap 3 meq/L 8-16 Below low normal [facility] Calcium Level 8.2 mg/dL 8.8-10.2 Below low normal [facility] ([facility]) ID Date Data Source [id number] 07/26/2020 01:12:00 PM EST [facility] ([facility]) Name Value Range Interpretation Code Description Data Devi rce(s) Supporting Document(s) Ast/Sgot 27 U/L 7-37 Normal (applies to non-numeric resul ts) [facility] ([facility]) Alt/SGPT 29 U/L 12-78 Normal (applies to non-numeric resul ts) [facility] ([facility]) Bilirubin,Total 0.3 mg/dL 0.2-1.0 Normal (applies to non-numeric results) [facility] ([facility]) Alkaline Phosphatase 88 U/L 45-117 Normal (applies to non-num jerrod results) [facility] ([facility]) Total Protein 6.0 GM/DL 6.4-8.2 Below low normal [facility] ([facility]) Bilirubin,Direct 0.1 mg/dL 0.0-0.2 Normal (applies to non-numeric results) [facility] ([facility]) Albumin 2.9 GM/DL 3.2-5.2 Below low normal [facility] ([facility]) Albumin/Globulin Ratio 0.9 Normal (applies to non-n umeric results) [facility] ([facility]) ID Date Data Source [id number] 07/26/2020 01:12:00 PM EST [facility] ([facility]) Name Value Range Interpretation Code Description Data Devi rce(s) Supporting Document(s) CK-MB Value Mass 5.2 ng/mL Above high normal [facility] ([facility]) CPK Creatine Phosphokinase 165 U/L 39-308 Kailee l (applies to non-numeric results) [facility] ([facility]) Troponin I 0.03 ng/mL Normal (applies to non-numeric resul ts) [facility] ([facility]) <content>Troponin I Reference Interval f or Siemens [place] LOCI:</content>
<content></content>
<content>99th Percentile= 0.00-0.045 ng/ml</content>
<content></content>
<content>Risk Stratification:</content>
<content><= 0.10 ng/ml Decreased Risk for Adverse Clinical</content>
<content>Events.</content>
<content>0.10-1.50 ng/ml Increased Risk for Adverse Clinical</content>
<content>Events. Evaluation of additional</content>
<content>criterion and/or repeat testing in 2-6</content>
<content>hours is suggested to rule out myocardial</content>
<content>damage.</content>
<content>>= 1.50 ng/ml Indicative of Myocardial Injury.</content>
<content></content> MB/CK Relative Index 3.15 Normal (applies to non-num jerrod results) [facility]) <content>DIAGNOSIS CRITERIA</content>
<content>MMB ng/ml Relative Index (RI)</content>
<content>NON-AMI < or = 5 N/A</content>
<content>WAL[place] ZONE > 5 < or = 4</content>
<content>AMI > 5 > 4</content>
<content></content> ID Date Data Source [id number] 07/26/2020 01:12:00 PM EST [facility] ([facility]) Name Value Range Interpretation Code Description Data Devi rce(s) Supporting Document(s) aPTT in Platelet poor plasma by Coagulation assay 26.5 s 24.2-38.5 Normal (applies to non-numeric results) [facility]) ID Date Data Source [id number] 07/26/2020 01:12:00 PM EST [facility] ([facility]) Name Value Range Interpretation Code Description Data Devi rce(s) Supporting Document(s) Prothrombin Time 13.0 s 12.5-14.3 Normal (applies to non-numeric results) [facility]) Inr 0.96 Normal (applies to non-numeric resul ts) [facility]) THERAPUTIC HUMAN INR VALUES INDICATIONS NORMAL RANGES PROPHYLAXIS/TREATMENT OF: VENOUS THROMBOSIS 2.0-3.0 PULMONARY EMBOLISM 2.0-3.0 PREVENTION OF SYSTEMIC EMBOLISM FROM: TISSUE HEART VALVES 2.0-3.0 ACUTE MYOCARDIAL INFARCTION 2.0-3.0 VALVULAR HEART DISEASE 2.0-3.0 ATRIAL FIBRILLATION 2.0-3.0 MECHANICAL VALVES(HIGH RISK) 2.5-3.5 RECURRENT MYOCARDIAL INFARCTION 2.5-3.5 ID Date Data Source [id number] 07/26/2020 01:12:00 PM EST [facility] ([facility]) Name Value Range Interpretation Code Description Data Devi rce(s) Supporting Document(s) White Blood Count 4.8 10 4.0-10.0 Normal (applies to non-numeri c results) [facility] ([facility]) Hemoglobin 11.5 g/dL 13.5-17.5 Below low normal [facility] ( [facility]) Red Blood Count 3.83 10 4.30-6.10 Below low normal MED ENT ([facility]) Hematocrit 36.0 % 42.0-52.0 Below low normal MED[facility] ([facility]) Mean Corpuscular Volume 94.0 fl 80.0-96.0 Normal ( applies to non-numeric results) [facility] ([facility]) Mean Corpuscular HGB Conc 31.9 g/dL 32.0-36.5 Below low normal [facility] ([facility]) Mean Corpuscular Hemoglobin 30.0 pg 27.0-33.0 Norm al (applies to non-numeric results) [facility] ([facility]) Red Cell Distribution Width 14.1 % 11.5-14.5 Norm al (applies to non-numeric results) [facility] ([facility]) Platelet Count, Automated 170 10 150-450 Normal (applies to non-numeric results) [facility] ([facility]) Neutrophils % 72.5 % 36.0-66.0 Above high normal MEDE NT ([facility]) Lymph % 17.6 % 24.0-44.0 Below low normal [facility] ([facility] Eos % 2.7 % 0.0-3.0 Normal (applies to non-numeric resul ts) [facility] ([facility]) Luna % 6.6 % 0.0-5.0 Above high normal [facility] ([facility]) Baso % 0.4 % 0.0-1.0 Normal (applies to non-numeric resul ts) [facility] ([facility]) Nucleated Red Blood Cell % 0.0 % 0-0 Normal (applies to n on-numeric results) [facility] ([facility]) Immature Granulocyte % 0.2 % 0-3.0 Normal (applies to non-n umeric results) [facility] ([facility]) Neutrophils # 3.5 10 1.5-8.5 Normal (applies to non-numeric re sults) [facility] ([facility]) Lymph # 0.9 10 1.5-5.0 Below low normal [facility] ([facility]) Luna # 0.3 10 0.0-0.8 Normal (applies to non-numeric resul ts) [facility] ([facility]) Eos # 0.1 10 0.0-0.5 Normal (applies to non-numeric resul ts) [facility] ([facility]) Baso # 0.0 10 0.0-0.2 Normal (applies to non-numeric resul ts) [facility] ([facility]) ID Date Data Source [id number] 06/16/2020 08:41:00 AM EDT [facility] ([facility]) Name Value Range Interpretation Code Description Data Devi rce(s) Supporting Document(s) Natriuretic peptide.B prohormone N-Terminal [Mass/volu me] in Serum or Plasma 6362 pg/mL Above high normal [facility] ([facility]) ID Date Data Source [id number] 06/16/2020 08:41:00 AM EDT [facility] ([facility]) Name Value Range Interpretation Code Description Data Devi rce(s) Supporting Document(s) Glucose, Fasting 92 mg/dL 70-100 Normal (applies to non-numeric results) [facility] ([facility]) Blood Urea Nitrogen 56 mg/dL 7-18 Above high normal [facility] ([facility]) Creatinine For GFR 3.05 mg/dL 0.70-1.30 Above high normal [facility] ([facility]) Sodium Level 138 meq/L 136-145 Normal (applies to non-numeric res ults) [facility] ([facility]) Glomerular Filtration Rate 20.8 Below low normal [facility] ([facility]) <content>Units are mL/min/1.73 m2</content>
<content></content>
<content>Chronic Kidney Disease Staging per NKF:</content>
<content></content>
<content>Stage I & II GFR >=60 Normal to Mildly Decreased</content>
<content>Stage III GFR 30- 59 Moderately Decreased</content>
<content>Stage IV GFR 15-29 Severely Decreased</content>
<content>Stage V GFR <15 Very Little GFR Left</content>
<content>ESRD GFR <15 on GREETING CARD EDITOR</content>
<content></content> Chloride Level 102 meq/L 98-107 Normal (applies to non-numeric r esults) [facility] ([facility]) Carbon Dioxide Level 30 meq/L 21-32 Normal (applies to non-num jerrod results) [facility] ([facility]) Potassium Serum 4.4 meq/L 3.5-5.1 Normal (applies to non-numeric results) [facility] ([facility]) Anion Gap 6 meq/L 8-16 Below low normal [facility] Calcium Level 8.5 mg/dL 8.8-10.2 Below low normal MEDEN T ([facility]) Alt/SGPT 26 U/L 12-78 Normal (applies to non-numeric resul ts) [facility] ([facility]) Ast/Sgot 22 U/L 7-37 Normal (applies to non-numeric resul ts) [facility] ([facility]) Alkaline Phosphatase 80 U/L 45-117 Normal (applies to non-num jerrod results) [facility] ([facility]) Bilirubin,Total 0.4 mg/dL 0.2-1.0 Normal (applies to non-numeric results) [facility] ([facility]) Total Protein 6.5 GM/DL 6.4-8.2 Normal (applies to non-numeric re sults) [facility] ([facility]) Albumin 3.2 GM/DL 3.2-5.2 Normal (applies to non-numeric resul ts) [facility] ([facility]) Albumin/Globulin Ratio 1.0 Normal (applies to non-n umeric results) [facility] ([facility]) ID Date Data Source [id number] 06/16/2020 08:41:00 AM EDT [facility] ([facility]) Name Value Range Interpretation Code Description Data Devi rce(s) Supporting Document(s) White Blood Count 4.7 10 4.0-10.0 Normal (applies to non-numeri c results) [facility] ([facility]) Red Blood Count 3.89 10 4.30-6.10 Below low normal [facility] ENT ([facility]) Hemoglobin 11.6 g/dL 13.5-17.5 Below low normal [facility] ( [facility]) Mean Corpuscular Volume 96.9 fl 80.0-96.0 Above high normal [facility] ([facility]) Hematocrit 37.7 % 42.0-52.0 Below low normal [facility] ([facility]) Mean Corpuscular HGB Conc 30.8 g/dL 32.0-36.5 Below low normal [facility] ([facility]) Mean Corpuscular Hemoglobin 29.8 pg 27.0-33.0 Norm al (applies to non-numeric results) [facility] ([facility]) Platelet Count, Automated 149 10 150-450 Below low normal [facility] ([facility]) Red Cell Distribution Width 13.0 % 11.5-14.5 Norm al (applies to non-numeric results) [facility] ([facility]) Lymph % 19.9 % 24.0-44.0 Below low normal [facility] ([facility]) Neutrophils % 68.6 % 36.0-66.0 Above high normal MEDE NT ([facility]) Luna % 6.4 % 0.0-5.0 Above high normal [facility] ([facility]) Eos % 4.1 % 0.0-3.0 Above high normal [facility] ([facility]) Baso % 0.4 % 0.0-1.0 Normal (applies to non-numeric resul ts) [facility] ([facility]) Immature Granulocyte % 0.6 % 0-3.0 Normal (applies to non-n umeric results) [facility] ([facility]) Nucleated Red Blood Cell % 0.0 % 0-0 Normal (applies to n on-numeric results) [facility] ([facility]) Lymph # 0.9 10 1.5-5.0 Below low normal [facility] ([facility]) Neutrophils # 3.2 10 1.5-8.5 Normal (applies to non-numeric re sults) [facility] ([facility]) Eos # 0.2 10 0.0-0.5 Normal (applies to non-numeric resul ts) [facility] ([facility]) Luna # 0.3 10 0.0-0.8 Normal (applies to non-numeric resul ts) [facility] ([facility]) Baso # 0.0 10 0.0-0.2 Normal (applies to non-numeric resul ts) [facility] ([facility]) ID Date Data Source [id number] 06/04/2020 09:26:00 AM EDT [facility] ([facility]) Name Value Range Interpretation Code Description Data Devi rce(s) Supporting Document(s) Blood Urea Nitrogen 41 mg/dL 7-18 Above high normal [facility] ([facility]) Glucose, Fasting 91 mg/dL 70-100 Normal (applies to non-numeric results) [facility] ([facility]) Glomerular Filtration Rate 21.4 Below low normal [facility] ([facility]) <content>Units are mL/min/1.73 m2</content>
<content></content>
<content>Chronic Kidney Disease Staging per NKF:</content>
<content></content>
<content>Stage I & II GFR >=60 Normal to Mildly Decreased</content>
<content>Stage III GFR 30- 59 Moderately Decreased</content>
<content>Stage IV GFR 15-29 Severely Decreased</content>
<content>Stage V GFR <15 Very Little GFR Left</content>
<content>ESRD GFR <15 on GREETING CARD EDITOR</content>
<content></content> Sodium Level 137 meq/L 136-145 Normal (applies to non-numeric res ults) [facility] ([facility]) Creatinine For GFR 2.97 mg/dL 0.70-1.30 Above high normal [facility] ([facility]) Potassium Serum 4.4 meq/L 3.5-5.1 Normal (applies to non-numeric results) [facility] ([facility]) Chloride Level 100 meq/L 98-107 Normal (applies to non-numeric r esults) [facility] ([facility]) Anion Gap 5 meq/L 8-16 Below low normal [facility]) Calcium Level 8.0 mg/dL 8.8-10.2 Below low normal MEDEN T ([facility]) Carbon Dioxide Level 32 meq/L 21-32 Normal (applies to non-num jerrod results) [facility] ([facility]) Procedure Social History Code Duration Value Status Description Data Source(s ) Smoking 05/31/2021 12:00:00 AM EDT Former Smoker completed Former Smoker eCW1 ([facility]) Smoking 05/31/2021 12:00:00 AM EDT Former Smoker completed Former Smoker eC1 ([facility]) Alcohol intake 01/04/2021 12:00:00 AM EDT Current drinker of al cohol (finding) completed Current drinker of alcohol (finding) [facility] Alcohol intake 11/30/2020 12:00:00 AM EDT Yes completed [facility] Smoking 11/30/2020 12:00:00 AM EDT Former smoker completed Former smoker [facility] Alcohol intake 10/20/2020 12:00:00 AM EST Yes completed [facility] Smoking 10/20/2020 12:00:00 AM EST Former smoker completed Former smoker [facility] Alcohol intake 10/14/2020 12:00:00 AM EST Yes completed [facility] Smoking 10/14/2020 12:00:00 AM EST Former smoker completed Former smoker [facility] Alcohol intake 10/10/2020 12:00:00 AM EST Yes completed [facility] Smoking 10/10/2020 12:00:00 AM EST Former smoker completed Former smoker [facility] Smoking 09/27/2020 12:00:00 AM EST Unknown if ever smoked comp leted Unknown if ever smoked [facility] Alcohol intake 09/01/2020 12:00:00 AM EST Yes completed [facility] Smoking 09/01/2020 12:00:00 AM EST Former smoker completed Former smoker [facility] Tobacco use and exposure 06/07/2020 12:00:00 AM EDT Never used co mpleted Never used [facility] Smoking 06/07/2020 12:00:00 AM EDT Former smoker completed Former smoker [facility] Alcohol intake 06/07/2020 12:00:00 AM EDT Yes completed [facility] Smoking 06/07/2020 12:00:00 AM EDT Former smoker completed Former smoker [facility] Vital Signs ID Date Data Source [id number] Name Value Range Interpretation Code Description Data Source(s) Body weight 157 [lb_av] 157 [lb_av] W1 ([facility]) Body height 68 [in_i] 68 [in_i] eCW1 ([facility]) Body mass index (BMI) [Ratio] 23.87 kg/m2 23.87 kg/m2 W1 ([facility]) Heart rate 120 /min 120 /min W1 ([facility]) Respiratory rate 18 /min 18 /min W1 ([facility]) Body temperature 96.6 [degF] 96.6 [degF] eCW1 ( [facility]) Systolic blood pressure 136 mm[Hg] 136 mm[Hg] e CW1 ([facility]) Diastolic blood pressure 78 mm[Hg] 78 mm[Hg] eCW1 ([facility]) Body height 68.00 [in_i] 68.00 [in_i] [facility] 5'8" Body weight 157.12 [lb_av] 157.12 [lb_av] MEDEN T ([facility]) Body mass index (BMI) [Ratio] 23.9 kg/m2 23.9 k g/m2 [facility] ([facility]) Systolic blood pressure 120 mm[Hg] 120 mm[Hg] M EDENT ([facility]) Diastolic blood pressure 70 mm[Hg] 70 mm[Hg] [facility] ([facility]) Heart rate 60 /min 60 /min [facility] ([facility]) Body temperature 98.6 [degF] 98.6 [degF] [facility] ([facility]) Body temperature 37.0 Kemi 37.0 Kemi [facility] ( [facility]) Oxygen saturation in Arterial blood by Pulse oximetry 99 % 99 % [facility] ([facility]) Oxygen saturation in Arterial blood by Pulse oximetry 97 % 97 % [facility] ([facility]) Body temperature 37.0 Kemi 37.0 Kemi [facility] ( [facility]) Body height 68.00 [in_i] 68.00 [in_i] [facility] ([facility] 5'8" Systolic blood pressure 120 mm[Hg] 120 mm[Hg] [facility] Diastolic blood pressure 78 mm[Hg] 78 mm[Hg] [facility] ([facility]) Heart rate 78 /min 78 /min [facility] ([facility]) Body temperature 98.6 [degF] 98.6 [degF] [facility] ([facility]) Systolic blood pressure 130 mm[Hg] 130 mm[Hg] [facility] Diastolic blood pressure 70 mm[Hg] 70 mm[Hg] [facility] Heart rate 61 /min 61 /min [facility] Body height 172.7 cm 172.7 cm [facility] Body weight 68.947 kg 68.947 kg [facility] Body mass index (BMI) [Ratio] 23.11 kg/m2 23.11 kg/m2 [facility] Oxygen saturation in Arterial blood by Pulse oximetry 96 % 96 % [facility] Systolic blood pressure 130 mm[Hg] 130 mm[Hg] [facility] Heart rate 66 /min 66 /min [facility] ([facility]) Body height 68.00 [in_i] 68.00 [in_i] [facility] ([facility] 5'8" Body weight 154.50 [lb_av] 154.50 [lb_av] MEDEN T ([facility]) Body mass index (BMI) [Ratio] 23.5 kg/m2 23.5 k g/m2 [facility] ([facility]) Diastolic blood pressure 70 mm[Hg] 70 mm[Hg] [facility] ([facility]) Body temperature 97.8 [degF] 97.8 [degF] [facility] ([facility]) Body temperature 36.6 Kemi 36.6 Kemi [facility] ( [facility]) Oxygen saturation in Arterial blood by Pulse oximetry 98 % 98 % [facility] ([facility]) Systolic blood pressure 170 mm[Hg] 170 mm[Hg] [facility] Diastolic blood pressure 70 mm[Hg] 70 mm[Hg] [facility] Heart rate 71 /min 71 /min [facility] Body height 172.7 cm 172.7 cm [facility] Body weight 70.308 kg 70.308 kg [facility] Body mass index (BMI) [Ratio] 23.57 kg/m2 23.57 kg/m2 [facility] Oxygen saturation in Arterial blood by Pulse oximetry 98 % 98 % [facility] Systolic blood pressure 124 mm[Hg] 124 mm[Hg] [facility] Diastolic blood pressure 76 mm[Hg] 76 mm[Hg] [facility] Heart rate 62 /min 62 /min [facility] Body height 172.7 cm 172.7 cm [facility] Body weight 72.122 kg 72.122 kg [facility] Body mass index (BMI) [Ratio] 24.18 kg/m2 24.18 kg/m2 [facility] Oxygen saturation in Arterial blood by Pulse oximetry 98 % 98 % [facility] Systolic blood pressure 122 mm[Hg] 122 mm[Hg] [facility] Diastolic blood pressure 70 mm[Hg] 70 mm[Hg] [facility] Heart rate 60 /min 60 /min [facility] Body height 172.7 cm 172.7 cm [facility] Body weight 71.668 kg 71.668 kg [facility] Body mass index (BMI) [Ratio] 24.02 kg/m2 24.02 kg/m2 [facility] Oxygen saturation in Arterial blood by Pulse oximetry 99 % 99 % [facility] Systolic blood pressure 152 mm[Hg] 152 mm[Hg] [facility] Diastolic blood pressure 70 mm[Hg] 70 mm[Hg] [facility] Heart rate 60 /min 60 /min [facility] Body height 172.7 cm 172.7 cm [facility] Body weight 73.029 kg 73.029 kg [facility] Body mass index (BMI) [Ratio] 24.48 kg/m2 24.48 kg/m2 [facility] Oxygen saturation in Arterial blood by Pulse oximetry 98 % 98 % [facility] Systolic blood pressure 148 mm[Hg] 148 mm[Hg] [facility] Diastolic blood pressure 70 mm[Hg] 70 mm[Hg] [facility] Heart rate 61 /min 61 /min [facility] Body height 172.7 cm 172.7 cm [facility] Body weight 74.844 kg 74.844 kg [facility] Body mass index (BMI) [Ratio] 25.09 kg/m2 25.09 kg/m2 [facility] Oxygen saturation in Arterial blood by Pulse oximetry 98 % 98 % [facility] Systolic blood pressure 162 mm[Hg] 162 mm[Hg] [facility] Diastolic blood pressure 70 mm[Hg] 70 mm[Hg] [facility] Heart rate 80 /min 80 /min [facility] Body height 172.7 cm 172.7 cm [facility] Body weight 72.576 kg 72.576 kg [facility] Body mass index (BMI) [Ratio] 24.33 kg/m2 24.33 kg/m2 [facility] Oxygen saturation in Arterial blood by Pulse oximetry 98 % 98 % [facility] Systolic blood pressure 128 mm[Hg] 128 mm[Hg] [facility] Diastolic blood pressure 88 mm[Hg] 88 mm[Hg] [facility] Heart rate 83 /min 83 /min [facility] Body height 172.7 cm 172.7 cm [facility] Body weight 70.308 kg 70.308 kg [facility] Body mass index (BMI) [Ratio] 23.57 kg/m2 23.57 kg/m2 [facility] Oxygen saturation in Arterial blood by Pulse oximetry 99 % 99 % [facility] Oxygen saturation in Arterial blood by Pulse oximetry 98 % 98 % [facility] ([facility]) Systolic blood pressure 146 mm[Hg] 146 mm[Hg] M EDENT ([facility]) Body weight 179.00 [lb_av] 179.00 [lb_av] MEDEN T ([facility]) Diastolic blood pressure 70 mm[Hg] 70 mm[Hg] [facility] ([facility]) Heart rate 70 /min 70 /min [facility] ([facility]) Body temperature 98.2 [degF] 98.2 [degF] [facility] ([facility]) Body temperature 36.8 Kemi 36.8 Kemi [facility] ( [facility]) ID Date Data Source [id number] 10/13/2020 11:11:53 PM [facility] Name Value Range Interpretation Code Description Data Source(s) WEIGHT RECORDED 167.77 lb 167.77 lb [facility] WEIGHT RECORDED 168.9 lb 168.9 lb [facility] WEIGHT RECORDED 167.55 lb 167.55 lb [facility] WEIGHT RECORDED 166.89 lb 166.89 lb [facility] Body height Measured 68 in 68 in [facility] TRANSFER FROM [facility] Patient Treatment Plan of Care Planned Activity Planned Date Details Description Data Source (s) Tylenol Extra Strength 500 MG 04/25/2021 01:00:00 AM EDT [facility] ([facility]) Torsemide 100 MG 04/17/2021 01:00:00 AM EDT [facility] ([facility]) Lokelma 5 GM 04/16/2021 [place]:00[place] Metoprolol Succinate ER 25 MG 04/16/2021 01:00:00 AM EDT [facility] ([facility]) Calcitriol 0.25 MCG 04/16/2021 01:00:00 AM EDT [facility] ([facility]) Aspirin 81 81 MG 04/16/2021 01:00:00 AM EDT [facility]) raNITIdine HCl 150 MG 04/16/2021 01:00:00 AM EDT [facility] ([facility]) Dificid 200 MG 04/16/2021 01:00:00 AM EDT [facility] ([facility]) Torsemide 100 MG 04/16/2021 01:00:00 AM EDT [facility] ([facility]) torsemide 100 MG Oral Tablet 01/04/2021 12:00:00 AM EDT [facility] 24 HR metoprolol succinate 25 MG Extended Release Oral Tablet 01/04/2021 12:00:00 AM EDT [facility] 24 HR metoprolol succinate 25 MG Extended Release Oral Tablet 11/30/2020 12:00:00 AM EDT [facility] torsemide 100 MG Oral Tablet 11/04/2020 12:00:00 AM [facility] Isosorbide Dinitrate 20 MG Oral Tablet 11/04/2020 12:00:00 AM [facility] carvedilol 6.25 MG Oral Tablet 11/04/2020 12:00:00 AM [facility] Hydralazine Hydrochloride 50 MG Oral Tablet 10/14/2020 12:00:00 AM [facility] Acetaminophen 325 MG Oral Tablet 10/07/2020 12:00:00 AM [facility] Cephalexin 500 MG Oral Capsule 10/06/2020 12:00:00 AM [facility] torsemide 100 MG Oral Tablet 10/06/2020 12:00:00 AM [facility] Furosemide 40 MG Oral Tablet 09/28/2020 12:00:00 AM [facility] Isosorbide Dinitrate 20 MG Oral Tablet 09/27/2020 12:00:00 AM [facility] carvedilol 6.25 MG Oral Tablet 09/27/2020 12:00:00 AM [facility] carvedilol 6.25 MG Oral Tablet 09/27/2020 12:00:00 AM [facility] Isosorbide Dinitrate 20 MG Oral Tablet 09/27/2020 12:00:00 AM [facility] Hydralazine Hydrochloride 25 MG Oral Tablet 09/27/2020 12:00:00 AM [facility] Furosemide 40 MG Oral Tablet 09/27/2020 12:00:00 AM [facility] Isosorbide Dinitrate 20 MG Oral Tablet 09/27/2020 12:00:00 AM [facility] Hydralazine Hydrochloride 25 MG Oral Tablet 09/27/2020 12:00:00 AM [facility] carvedilol 6.25 MG Oral Tablet 09/27/2020 12:00:00 AM [facility] Acetaminophen 325 MG Oral Tablet 09/27/2020 12:00:00 AM [facility] 10 ML Atropine Sulfate 0.1 MG/ML Prefilled Syringe 09/25/2020 01 :45:43 AM [facility] Glucagon 1 MG Injection 09/24/2020 05:54:12 PM [facility] Glucose 0.417 MG/MG Oral Gel 09/24/2020 05:54:12 PM [facility] Furosemide 40 MG Oral Tablet 09/01/2020 12:00:00 AM [facility] Hydralazine Hydrochloride 10 MG Oral Tablet 09/01/2020 12:00:00 AM [facility] Hydralazine Hydrochloride 10 MG Oral Tablet 08/13/2020 12:00:00 AM [facility] Hydralazine Hydrochloride 10 MG Oral Tablet 06/07/2020 12:00:00 AM EDT [facility] Spironolactone 25 MG Oral Tablet 06/02/2020 12:00:00 AM EDT [facility] Furosemide 40 MG Oral Tablet 06/02/2020 12:00:00 AM EDT [facility] Vitamin B 12 1 MG/ML Injectable Solution 05/06/2020 12:00:00 AM EDT [facility] Omeprazole 20 MG Delayed Release Oral Capsule 04/10/2020 12:00:00 A M EDT [facility] Spironolactone 25 MG Oral Tablet [facility] Isosorbide Mononitrate 20 MG Oral Tablet [facility] Isosorbide Dinitrate 20 MG Oral Tablet [facility]
[2021-06-07 11:45] LABS: ALBUMIN 2.3 GM/DL (3.2-5.2); ALT/SGPT 15 U/L (12-78); AMYLASE 40 U/L (25-115); BILIRUBIN,TOTAL 0.3 MG/DL (0.2-1.0); BLOOD UREA NITROGEN 96 MG/DL (7-18); CALCIUM LEVEL 7.7 MG/DL (8.8-10.2); CARBON DIOXIDE LEVEL 22 MEQ/L (21-32); CHLORIDE LEVEL 106 MEQ/L (98-107); CREATININE FOR GFR 5.77 MG/DL (0.70-1.30); GLOMERULAR FILTRATION RATE 9.9 (>35); GLUCOSE, FASTING 117 MG/DL (70-100); LIPASE 163 U/L (73-393); POTASSIUM SERUM 4.7 MEQ/L (3.5-5.1); SODIUM LEVEL 135 MEQ/L (136-145); TOTAL PROTEIN 6.5 GM/DL (6.4-8.2)
[2021-06-07 12:33] LABS: CK-MB VALUE MASS 3.4 NG/ML (<3.6); CPK CREATINE PHOSPHOKINASE 49 U/L (39-308); MB/CK RELATIVE INDEX 6.94 (< OR =4); NT-PRO BNP 58896 PG/ML (<450); TROPONIN I < 0.02 NG/ML (< 0.10)
--- NOTE | 2021-06-07 13:04 | REP ---
INDICATION: abdominal distention; SOB COMPARISON: None. TECHNIQUE: Cross-table lateral view of the abdomen with supine views of the chest and abdomen/pelvis. FINDINGS: Frontal view of the chest demonstrates chronic appearing changes and chronic elevation of the right hemidiaphragm similar to 05/14/2021. Supine and cross-table lateral views of the abdomen and pelvis demonstrate nonspecific bowel gas pattern. Surgical suture material noted in the right mid abdomen. Skeletal structures demonstrate osteopenia and degenerative changes. IMPRESSION: Nonspecific bowel gas pattern <Electronically signed by Braden Pelaez > 06/07/21 1300
[2021-06-07 14:28] VITALS: BP 151/74
== END 2021-06-07 14:30 | disposition home or self-care (01) ==
LOC: M ED 10:00
DX: N18.9 Chronic kidney disease, unspecified (principal); I50.9 Heart failure, unspecified; E11.9 Type 2 diabetes mellitus without complications; I10 Essential (primary) hypertension; Z86.73 Personal history of transient ischemic attack (TIA), and cerebral infarction without residual deficits; E78.5 Hyperlipidemia, unspecified; Z95.0 Presence of cardiac pacemaker; Z90.49 Acquired absence of other specified parts of digestive tract; Z79.82 Long term (current) use of aspirin; Z79.899 Other long term (current) drug therapy; Z88.8 Allergy status to other drugs, medicaments and biological substances

== ENCOUNTER → 2021-06-12 | Outpatient (CLI) | payer MEDICARE, OTHER ==
--- NOTE | 2021-06-12 13:31 | REP ---
INDICATION: HYDRONEPHROSIS, UNSPECIFIED HYDRONEPHROSIS TYPE. COMPARISON: 05/15/2021. TECHNIQUE: Real-time sonographic evaluation of the kidneys is performed. FINDINGS: There is diffuse increased echotexture of the renal cortex bilaterally, suggesting medical renal disease. There is mild right hydroureteronephrosis. There is no left hydronephrosis. There is a cyst in the lower pole the right kidney medially 2.4 x 1.4 x 2.3 cm. There is a cyst in the medial upper left kidney measuring 1.8 x 1.3 x 2.2 cm and another more laterally 1.3 x 1.0 x 1.5 cm. The right kidney measures 10.5 x 5.5 x 4.4 cm. Left renal dimensions are 10.7 x 5.9 x 4.5 cm. Urinary bladder wall appears thickened and trabeculated. Ureteral jets are visualized bilaterally within the urinary bladder with Doppler color evaluation. IMPRESSION: Mild right hydroureteronephrosis. No left hydronephrosis. Bilateral renal cysts. Diffusely thickened trabeculated bladder wall. Ureteral jets are visualized in the urinary bladder bilaterally with Doppler color evaluation. <Electronically signed by Esteban Owen > 06/12/21 [id number]
== END ==
LOC: M RAD 12:27
PROVIDERS: ATTEND Urology
DX: N13.30 Unspecified hydronephrosis (principal); N28.1 Cyst of kidney, acquired; N32.9 Bladder disorder, unspecified

== ENCOUNTER → 2021-06-22 | Outpatient (REF) | payer MEDICARE, OTHER | LOC: M LAB REF 13:10 | PROVIDERS: ATTEND Internal Medicine Nephrology | DX: E83.42 Hypomagnesemia (principal) ==

== ENCOUNTER 2021-07-14 15:45 | Emergency (ER) | payer MEDICARE, OTHER ==
--- OUTSIDE RECORDS SUMMARY | 2021-07-14 15:54 | CCD ---
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 Name Role Phone Jose Martin ZARCO MD [...] Unavailable CAROLEE, R BEL MD Unavailable Unavailable CRAOLEE, R BEL MD Unavailable Unavailable CAROLEE, R [...] Unavailable CAROLEE, R BEL MD Unavailable Unavailable Rylan Velazquez Unavailable Unavailable Rylan Velazquez Unavailable Unavailable Velazquez, L Nikki PA Unavailable [...] L Nikki PA Unavailable Unavailable Velazquez, L Nkiki PA Unavailable Unavailable Velazquez, L Nikki PA Unavailable Unavailable Velazquez, L Nikki PA Unavailable Unavailable Velazquez, L Nikki PA Unavailable Unavailable Velazquez, L Nikki PA Unavailable Unavailable Velazquez, L Nikki PA Unavailable Unavailable Velazquez, L Nikki PA Unavailable Unavailable Velazquez, L Nikki PA Unavailable Unavailable Velazquez, L Nikki PA Unavailable Unavailable Velazquez, L Nikki PA Unavailable Unavailable Velazquez, L Nikki PA Unavailable Unavailable Andreas, V DADA PA-C Unavailable Unavailable Candice, V DADA PA-C Unavailable Unavailable Cadnice, V DADA PA-C Unavailable Unavailable Candice, V DADA PA-C Unavailable Unavailable Andreas, V DADA PA-C Unavailable Unavailable Andreas, V DADA PA-C Unavailable Unavailable Andreas, V DADA PA-C Unavailable Unavailable Andreas, V DADA PA-C Unavailable Unavailable Andreas, V DADA PA-C Unavailable Unavailable Andreas, V DADA PA-C Unavailable Unavailable Andreas, V DADA PA-C Unavailable Unavailable Andreas, V DADA PA-C Unavailable Unavailable Candice, V DADA PA-C Unavailable Unavailable Andreas, V DADA PA-C Unavailable Unavailable Fons, M Alma ARCHITECTURAL SUPERINTENDENT Unavailable Unavailable Fons, M Alma ARCHITECTURAL SUPERINTENDENT Unavailable Unavailable Fons, M Alma ARCHITECTURAL SUPERINTENDENT Unavailable Unavailable Fons, M Alma ARCHITECTURAL SUPERINTENDENT Unavailable Unavailable Fons, M Alma ARCHITECTURAL SUPERINTENDENT Unavailable Unavailable Fons, M Alma ARCHITECTURAL SUPERINTENDENT Unavailable Unavailable Fons, M Alma ARCHITECTURAL SUPERINTENDENT Unavailable Unavailable Fons, M Alma ARCHITECTURAL SUPERINTENDENT Unavailable Unavailable Fons, M Alma ARCHITECTURAL SUPERINTENDENT Unavailable Unavailable Fons, M Alma ARCHITECTURAL SUPERINTENDENT Unavailable Unavailable Fons, M Alma ARCHITECTURAL SUPERINTENDENT Unavailable Unavailable Fons, M Alma ARCHITECTURAL SUPERINTENDENT Unavailable Unavailable Fons, M Alma ARCHITECTURAL SUPERINTENDENT Unavailable Unavailable Fons, M Alma ARCHITECTURAL SUPERINTENDENT Unavailable Unavailable Fons, M Alma ARCHITECTURAL SUPERINTENDENT Unavailable Unavailable Fons, M Alma ARCHITECTURAL SUPERINTENDENT Unavailable Unavailable Fons, M Alma ARCHITECTURAL SUPERINTENDENT Unavailable Unavailable Fons, M Alma ARCHITECTURAL SUPERINTENDENT Unavailable Unavailable Fons, M Alma ARCHITECTURAL SUPERINTENDENT Unavailable Unavailable Fons, M Alma ARCHITECTURAL SUPERINTENDENT Unavailable Unavailable Fons, M Alma ARCHITECTURAL SUPERINTENDENT Unavailable Unavailable Fons, M Alma ARCHITECTURAL SUPERINTENDENT Unavailable Unavailable Fons, M Alma ARCHITECTURAL SUPERINTENDENT Unavailable Unavailable Fons, M Alma ARCHITECTURAL SUPERINTENDENT Unavailable Unavailable Fons, M Alma ARCHITECTURAL SUPERINTENDENT Unavailable Unavailable Fons, M Alma ARCHITECTURAL SUPERINTENDENT Unavailable Unavailable Fons, M Alma ARCHITECTURAL SUPERINTENDENT Unavailable Unavailable Fons, M Alma ARCHITECTURAL SUPERINTENDENT Unavailable Unavailable Fons, M Alma ARCHITECTURAL SUPERINTENDENT Unavailable Unavailable Fons, M Alma ARCHITECTURAL SUPERINTENDENT Unavailable Unavailable Fons, M Alma ARCHITECTURAL SUPERINTENDENT Unavailable Unavailable Fons, M Alma ARCHITECTURAL SUPERINTENDENT Unavailable Unavailable Fons, M Alma ARCHITECTURAL SUPERINTENDENT Unavailable Unavailable Fons, M Alma ARCHITECTURAL SUPERINTENDENT Unavailable Unavailable Fons, M Alma ARCHITECTURAL SUPERINTENDENT Unavailable Unavailable Fons, M Alma ARCHITECTURAL SUPERINTENDENT Unavailable Unavailable Fons, M Alma ARCHITECTURAL SUPERINTENDENT Unavailable Unavailable Fons, M Alma ARCHITECTURAL SUPERINTENDENT Unavailable Unavailable Fons, M Alma ARCHITECTURAL SUPERINTENDENT Unavailable Unavailable Fons, M Alma ARCHITECTURAL SUPERINTENDENT Unavailable Unavailable Fons, M Alma ARCHITECTURAL SUPERINTENDENT Unavailable Unavailable Fons, M Alma ARCHITECTURAL SUPERINTENDENT Unavailable Unavailable Fons, M Alma ARCHITECTURAL SUPERINTENDENT Unavailable Unavailable Fons, M Alma ARCHITECTURAL SUPERINTENDENT Unavailable Unavailable Fons, M Alma ARCHITECTURAL SUPERINTENDENT Unavailable Unavailable Fons, M Alma ARCHITECTURAL SUPERINTENDENT Unavailable Unavailable Fons, M Alma ARCHITECTURAL SUPERINTENDENT Unavailable Unavailable Fons, M Alma ARCHITECTURAL SUPERINTENDENT Unavailable Unavailable Fons, M Alma ARCHITECTURAL SUPERINTENDENT Unavailable Unavailable Fons, M Alma ARCHITECTURAL SUPERINTENDENT Unavailable Unavailable Fons, M Alma ARCHITECTURAL SUPERINTENDENT Unavailable Unavailable Fons, M Alma ARCHITECTURAL SUPERINTENDENT Unavailable Unavailable Fons, M Alma ARCHITECTURAL SUPERINTENDENT Unavailable Unavailable JENNIE WANG MD Unavailable Unavailable JENNIE WANG MD Unavailable Unavailable JENNIE WANG MD Unavailable Unavailable ALEKSIEJUK, JENNIE MD Unavailable Unavailable GARCIA, COLTEN MBBS Unavailable Unavailable [...] Mirandajtech Unavailable Unavailable Rico Mirandajtech Unavailable Unavailable Ruben Vojtech Unavailable Unavailable Rico Mirandajtech Unavailable Unavailable Rico Mirandajtech Unavailable Unavailable Rico Mirandajtech Unavailable Unavailable Rico Mirandajtech Unavailable Unavailable Rico Mirandajtech Unavailable Unavailable Rico Mirandajtech Unavailable Unavailable Rico Mirandajtech Unavailable Unavailable SleRico alarconjtech Unavailable Unavailable Slezka Vojtech Unavailable Unavailable Rico Mirandajtech Unavailable Unavailable Rico Mirandajtech Unavailable Unavailable Rico Mirandajovi OSHEA Unavailable Unavailable Slezka Vojtech Unavailable Unavailable Slezka Vojtech Unavailable Unavailable Slezka Vojtech Unavailable Unavailable Slezka Vojtech Unavailable Unavailable Slezka Vojtech Unavailable Unavailable Slezka Vojtech Unavailable Unavailable Slezka Vojtech Unavailable Unavailable Slezka Vojtech Unavailable Unavailable Slezka Vojtech Unavailable Unavailable SlezkaRicojtech Unavailable Unavailable SlezkaRicojtech Unavailable Unavailable Slezka Vojtech Unavailable Unavailable SlezkaRicojtech Unavailable Unavailable SlezkaRicojtech Unavailable Unavailable Slezka Vojtech Unavailable Unavailable Slezka Vojtech Unavailable Unavailable Slezka Vojtech Unavailable Unavailable SlezkaRicojtech Unavailable Unavailable SlezkaRicojtech Unavailable Unavailable SlezkaRicojtech Unavailable Unavailable SlezkaRicojtech Unavailable Unavailable SlezkaRicojtech Unavailable Unavailable Slezka Vojtech Unavailable Unavailable SlezkaRicojtech Unavailable Unavailable SlezkaRicojtech Unavailable Unavailable Slezka Vojtech Unavailable Unavailable Slezka Vojtech Unavailable Unavailable Slezka Vojtech Unavailable Unavailable Slezka Vojtech Unavailable Unavailable Slezka Vojtech Unavailable Unavailable Slezka Vojtech Unavailable Unavailable Slezka Vojtech Unavailable Unavailable Slezka Vojtech Unavailable Unavailable SlezkaRicojtech Unavailable Unavailable SlezkaRicojtech Unavailable Unavailable Slezka Vojtech Unavailable Unavailable SlezkaRicojtech Unavailable Unavailable Slezka Vojtech Unavailable Unavailable Slezka Vojtech Unavailable Unavailable SlezkaRicojtech Unavailable Unavailable SlezkaRicojtech Unavailable Unavailable Slezka Vojtech Unavailable Unavailable Slezka Vojtech Unavailable Unavailable Slezka Vojtech Unavailable Unavailable Re-disclosure [...] is protected by Article 27-F of the [facility] Public Health law. If you continue you may have access to information: Regarding HIV / AIDS; Provided by facilities licensed or operated by the [facility] Office of Mental Health; or Provided by the [facility] Office for People With Developmental Disabilities. If such information is present, then the following [facility] mandated warning applies: This information [...] law may result in a fine or group home sentence or both. A general authorization for the release of medical or other information is NOT sufficient authorization for further disc losure. Allergies and Adverse Reactions Type Description Substance Reaction Status Data Source(s ) Ramipril Ramipril Ramipril active NETSMART ([facility]) Propensity to adverse reactions NO KNOWN ALLERGIES NO KNOWN ALLERGIES [facility] Family History Family Member Name Family Member Gender Family Member Status Date o f Status Description Data Source(s) Unknown Male Problem MEDENT ([facility]) Encounters Encounter Providers Location Date Indications Data Source(s ) Unknown [address] [facility], [facility] [id number] 06/01/2021 12:00:00 AM EDT eCW1 ([facility]) (Cysto1) Urology [address] [place] [address] 05/31/2021 12:00:00 AM EDT eCW1 ([facility]) Outpatient SJP.CT-SJP.CHERISE 05/11/2021 10:14:09 AM EDT [facility] Outpatient Attender: BEL ZARCO MD CMP Internal Med at [facility] 04/19/2021 04:00:00 PM EDT [facility] ([facility]) 04/16/2021 01:00:00 AM EDT - 04:16:16 PM EDT [facility] ([facility]) Outpatient SJPBertoCT-SJP.SYR 02/02/2021 11:11:26 AM EDT [facility] Outpatient Attender: DADA ALANISCHUN-SJP 07/2021 12:00:00 AM EDT - 01/04/2021 12:09:03 PM EDT [facility] Outpatient Attender: BEL ZARCO MD CMP Internal Med at [facility] 12/19/2020 01:20:00 PM EDT [facility] ([facility]) Outpatient Attender: Nikki ALANISCHUN-PHAMP.CHUN 02/2021 10:11:54 AM EDT - 11/30/2020 11:14:25 AM EDT [facility] Outpatient CHUN-PHAMP 10/28/2020 03:32:20 PM EST [facility] Outpatient Attender: Nikki VANG-ANT.CHUN 11/2020 12:00:00 AM EST - 10/27/2020 04:07:13 PM EST [facility] Outpatient CHUN-ANT.CHUN 10/27/2020 12:00:00 AM [facility] Outpatient Attender: Nikki VANG-ANT.CHUN 12:00:00 AM EST - 10/20/2020 10:04:52 AM [facility] Outpatient Attender: Nikki VANG-ANT.CHUN 12:00:00 AM EST - 10/14/2020 11:38:34 AM EST [facility] Outpatient Attender: DADA GOODCHUN 12:00:00 AM EST - 10/10/2020 10:58:07 AM EST [facility] Outpatient Attender: Alma VANG-SJPBertoCHUN 12:00:00 AM EST - 10/06/2020 09:27:49 AM EST [facility] Inpatient Attender: COLTEN MISHRAA ttender: JENNIE WANG MDAdmitter: JENNIE WANG MDReferrer: JENNIE WANG MDConsultant: COLTEN MISHRA [id number] 09/24/2020 12:00:00 AM EST - 09/28/2020 02:10:00 PM EST Atrioventricular block, complete [facility] Atrioventricular block, complete Patient discharged. Outpatient Attender: Alma Sheriff FNPReferrer: Alma CLARK-SJPBertoCHUN 09/01/2020 12:00:00 AM EST - 09/01/2020 02:42:19 PM EST [facility] Outpatient Referrer: Alma VANG-SJPBertoCHUN 09/01/2020 12:00:00 AM [facility] Outpatient Attender: Alma VANG-SJP.CHUN 10:49:04 AM EST - 06/29/2020 11:46:15 AM EST [facility] Outpatient Attender: BEL ZARCO MD [facility] Internal Med at [facility] 06/13/2020 01:20:00 PM EDT [facility] ([facility]) Outpatient Attender: Scarlet VANG-SJP.CHUN 05/26 12:00:00 AM EDT - 06/07/2020 12:07:41 PM EDT [facility] Immunizations Vaccine Date Status Description Data Source(s) Influenza High Dose 65>,Fluad Quadrivalent 05/30/2021 11:44:00 A M EDT completed MEDENT ([facility]) Moderna Covid-19 Sars-Cov-2, mRNA, LNP-S, PF, 100 mcg/ 0.5 mL 11/28/2020 12:00:00 AM EDT completed [facility] ([facility]) COVID-19 VACCINE Moderna 11/28/2020 12:00:00 AM EDT completed [facility] Vaccine Series Complete: YESThis Data wa s Submitted to [facility] [employer]. COVID-19 VACCINE, MRNA-1273, LNP-S (MODERNA)/PF 11/28/2020 1 2:00:00 AM EDT completed [facility] COVID-19 VACCINE Moderna 10/28/2020 12:00:00 AM EST completed [facility] Vaccine Series Complete: NOThis Data was Submitted to [facility] [employer]. COVID-19 VACCINE, MRNA-1273, LNP-S (MODERNA)/PF 10/28/2020 1 2:00:00 AM EST completed [facility] Moderna Covid-19 Sars-Cov-2, mRNA, LNP-S, PF, 100 mcg/ 0.5 mL 10/27/2020 11:00:00 PM EST completed [facility] ([facility]) Medications Medication Brand Name Start Date Product Form Dose Route Admi nistrative Instructions Pharmacy Instructions Status Indications Reaction Description Data Source(s) sodium zirconium cyclosilicate 5000 MG Powder for Oral Suspension [Lokelil] SODIUM ZIRCONIUM CYCLOSILICATE 06/29/2021 12:00:00 AM EDT powder in packet 11 DISSOLVE 1 PACKET IN 1/3CUP WATER TAKE ON SUNDAYS DIRECTED DISSOLVE 1 PACKET IN 1/3CUP WATER TAKE ON SUNDAYS DIRECTED SOLD: 07/02/2021 [facility] 324 mg (38 mg iron) 06/23/2021 12:00:00 AM EDT tablet 90 TAKE ONE TABLET BY MOUTH EVERY DAY TAKE ONE TABLET BY MOUTH EVERY DAY SOLD: 06/25/2021 [facility] 500 mg 06/07/2021 12:00:00 AM EDT tablet 7 TAKE ONE TABLET BY MOUTH EVERY OTHER DAY FOR 14 DAYS TAKE ONE TABLET BY MOUTH EVERY OTHER DAY FOR 14 DAYS S OLD: 06/09/2021 [facility] 400 mg (241.3 mg magnesium) 06/02/2021 12:00:00 AM EDT table t 90 TAKE ONE TABLET BY MOUTH EVERY DAY TAKE ONE TABLET BY MOUTH EVERY DAY SOLD: 06/04/2021 [facility] Calcitriol 0.32545 MG Oral Capsule Calcitriol 05/30/2021 12:00:00 AM EDT ORAL active [facility] torsemide 10 MG Oral Tablet Torsemide 05/30/2021 12:00:00 AM EDT ORAL active [facility] Lactobacillus acidophilus [id number] UNT Oral Tablet Acidoph ilus Probiotic 05/30/2021 12:00:00 AM EDT ORAL active MEDENT ([facility]) Lokelma Lokelma 05/30/2021 12:00:00 AM EDT active [facility] ([facility]) Finasteride 5 MG Oral Tablet FINASTERIDE 05/16/2021 [...] MOUTH EVERY DAY SOLD: 05/17/2021 [facility] 25 mg 05/11/2021 12:00:00 AM EDT tablet extended release 24 hr 30 TAKE ONE TABLET BY MOUTH EVERY DAY TAKE ONE TABLET BY MOUTH EVERY DAY SOLD: 06/17/2021 [facility] Tylenol Extra Strength 500 MG Tylenol Extra Strength 04/25/2021 01:00:00 AM EDT completed [facility] ([facility]) Torsemide 100 MG Torsemide 04/17/2021 01:00:00 AM EDT completed [facility]SM[facility] ([facility]) Calcitriol 0.25 MCG Calcitriol 04/16/2021 01:00:00 AM EDT completed [facility] ([facility]) Metoprolol Succinate ER 25 MG Metoprolol Succinate ER 2020 01:00:00 AM EDT completed NETSMAR T ([facility]) Lokelma 5 GM Lokelma 04/16/2021 01:00:00 AM EDT co mpleted NETSMART ([facility]) Dificid 200 MG Dificid 04/16/2021 01:00:00 AM EDT completed [facility] ([facility]) raNITIdine HCl 150 MG raNITIdine HCl 04/16/2021 01:00:00 AM EDT completed [facility] ([facility]) Aspirin 81 81 MG Aspirin 81 04/16/2021 01:00:00 AM EDT completed [facility] ([facility] ) Torsemide 100 MG Torsemide 04/16/2021 01:00:00 AM EDT 50.0 {mg} completed [facility] ([facility]) 200 mg 04/10/2021 12:00:00 AM EDT tablet 8 TAKE 1 TABLET [200MG] BY MOUTH TWO TIMES A DAY TAKE 1 TABLET [200MG] BY MOUTH TWO TIMES A DAY SOLD: 021 [facility] 1,000 mcg/mL 04/03/2021 12:00:00 AM EDT solution 3 INJECT 1ML INTRAMUSCULARLY EVERY 10 DAYS INJECT 1ML INTRAMUSCULARLY EVERY 10 DAYS SOLD: 06/18/2021 [facility] 1,000 mcg/mL 04/03/2021 12:00:00 AM [...] MOUTH EVERY DAY SOLD: 02/21/2021 [facility] Calcitriol 0.50678 MG Oral Capsule 0.25 mcg CALCITRIOL 02/04/2021 12:00:00 AM EDT capsule 30 TAKE ONE CAPSULE BY MOUTH 3 TIMES A WEEK (SATURDAY, SATURDAY, SATURDAY) TAKE ONE CAPSULE BY MOUTH 3 TIMES A WEEK (SATURDAY, , SATURDAY) SOLD: 07/02/2021 [facility] sodium zirconium cyclosilicate 5000 MG [...] SATURDAY, SATURDAY) SOLD: 02/06/2021 [facility] Calcitriol 0.09997 MG Oral Capsule 0.25 mcg CALCITRIOL 02/04/2021 [...] tablets (50 mg total) by mouth daily [facility] 24 HR metoprolol succinate 25 MG Extende d Release Oral Tablet metoprolol succinate (TOPROL-XL) 25 MG 24 hr tablet metoprolol succinate (TOPROL-XL) 25 MG 24 hr tablet 01/04/2021 12:00:00 AM EDT 25 mg Oral active Chronic combined systolic and diastolic congestive heart failure Take 1 tablet (25 mg total) by mouth daily [facility] Chronic combined systolic and diastolic congestive heart [...] tablet (25 mg total) by mouth daily [facility] Chronic combined systolic and diastolic congestive heart failure 100 mg 11/05/2020 12:00:00 AM EST tablet 45 TAEK 1/2 TABLET BY MOUTH ONCE DAILY TAEK 1/2 TABLET BY MOUTH ONCE DAILY SOLD: 11/06/2020 [facility] 20 mg 11/05/2020 12:00:00 AM EST tablet 180 TAKE ONE TABLET BY MOUTH THREE TIMES A DAY TAKE ONE TABLET BY MOUTH THREE TIMES A DAY SOLD: 11/06/2020 [facility] carvedilol 6.25 MG Oral Tablet CARVEDILOL 11/05/2020 12:00:00 AM EST tablet 180 TAKE ONE TABLET BY MOUTH TWICE A DAY TAKE ONE TABLET BY MOUT H TWICE A DAY SOLD: 11/06/2020 [facility] carvedilol 6.25 MG Oral Tablet carvedilol (COREG) 6.25 MG tablet carvedilol (COREG) 6.25 MG tablet 11/04/2020 12:00:00 AM EST 6.25 mg Oral aborted Take 1 tablet (6.25 mg total) by mouth 2 (two) times a day [facility] torsemide 100 MG Oral Tablet torsemide (DEMADEX) 100 M G tablet torsemide (DEMADEX) 100 MG tablet 11/04/2020 12:00:00 AM EST 50 mg Oral aborted Take 0.5 tablets (50 mg total) by mouth daily [facility] Isosorbide Dinitrate 20 MG Oral Tablet i sosorbide dinitrate (ISORDIL) 20 MG tablet isosorbide dinitrate (ISORDIL) 20 MG tablet 11/04/2020 12:00:00 AM EST 20 mg Oral aborted Take 1 tab let (20 mg total) by mouth 3 (three) times a day [facility] Hydralazine Hydrochloride 50 MG Oral Tablet HYDRALAZINE HCL 10/15/2020 12:00:00 AM EST tablet 270 TAKE ONE TABLET BY MOUTH THR EE TIMES A DAY TAKE ONE TABLET BY MOUTH THREE TIMES A DAY SOLD: 10/15/2020 [facility] Hydral[facility] Hydrochloride 50 MG Oral Tab let hydrALAZINE (APRESOLINE) 50 MG tablet hydrALAZINE (APRESOLINE) 50 MG tablet 10/14/2020 12:00:00 AM EST 50 mg Oral aborted Chronic combined systolic and diastolic congestive heart failure Take 1 tablet (50 mg total) by mouth 3 ( three) times a day [facility] Chronic combined systolic and diastolic congestive heart [...] 6 (six) hours as needed for pain [facility] 100 mg 10/06/2020 12:00:00 AM EST tablet 30 TAKE ONE TABLET BY MOUTH EVERY DAY TAKE ONE TABLET BY MOUTH EVERY DAY SOLD: 10/06/2020 [facility] torsemide 100 MG Oral Tablet torsemide (DEMADEX) 100 M G tablet torsemide (DEMADEX) 100 MG tablet 10/06/2020 12:00:00 AM EST 100 mg Oral aborted Take 1 tablet (100 mg total) by mouth daily [facility] Cephalexin 500 MG Oral Capsule cephalexin (KEFLEX) 500 MG capsule cephalexin (KEFLEX) 500 MG capsule 10/06/2020 12:00:00 AM EST 500 mg Oral active Take 1 capsule (500 mg total) by mouth 2 (two) times a day for 10 days [facility] Cephalexin 500 MG Oral Capsule CEPHALEXIN 10/06/2020 12:00:00 AM EST capsule 20 TAKE ONE CAPSULE BY MOUTH TWICE A DAY FOR 10 DAYS TAKE ONE CAPSULE BY MOUTH TWICE A DAY FOR 10 DAYS SOLD: 10/06/2020 [facility] magnesium sulfate in dextrose 5 % infusion (premix) 1 g [id number] [phone] 09/28/2020 08:00:00 AM EST 1 g Intravenous completed 1 g, Intravenous, Administer over 60 Minutes, Every 1 hour, First dose on Sat09/28/20 at 0800, For 2 doses [facility] Medication administered onsite Furosemide 40 MG Oral Tablet Furosemide 40 MG Oral Tab let (LASIX) Furosemide 40 MG Oral Tablet (LASIX) 09/28/2020 12:00:00 AM EST 20 mg Oral active Take 0.5 tablets by mouth daily [facility] Acetaminophen 325 MG Oral Tablet acetaminophen (TYLENO L) tablet 650 mg acetaminophen (TYLENOL) tablet 650 mg 09/27/2020 08:15:00 PM EST 65 0 mg Oral completed 650 mg, Oral, O nce, Sat09/27/20 at 2015, For 1 dose
Maximum daily dose of acetaminophen is 3,000 mg from all sources in 24 hours.
[facility] Medication administered onsite magnesium sulfate in dextrose 5 % infusion (premix) 1 g [id number] [phone] 09/27/2020 06:15:00 AM EST 1 g Intravenous completed 1 g, Intravenous, Administer over 60 Minutes, Once, Sat09/27/20 at 0615, For 1 dose [facility] Medication administered onsite Magnesium Oxide 400 MG Oral Tablet Magnesium Oxide (MA G-OX) tablet 400 mg Magnesium Oxide (MAG-OX) tablet 400 mg 09/27/2020 12:45:00 AM EST 4 00 mg Oral completed 400 mg, Oral, Once, Sat at 0045, For 1 dose [facility] Medication administered onsite Acetaminophen 325 MG Oral Tablet Acetaminophen 325 MG Oral T ablet 09/27/2020 12:00:00 AM EST 650 mg Oral active Take 2 tablets by mouth every 6 (six) hours as needed for up to 10 days [facility] carvedilol 6.25 MG Oral Tablet Carvedilol 6.25 MG Oral Tablet (COREG) Carvedilol 6.25 MG Oral Tablet (COREG) 09/27/2020 12:00:00 AM EST 6.25 mg Oral active Take 1 tablet by mouth Two Times Daily [facility] Hydralazine Hydrochloride 25 MG Oral Tab let hydrALAZINE HCl 25 MG Oral Tablet (APRESOLINE) hydrALAZINE HCl 25 MG Oral Tablet (APRESOLINE) 12:00:00 AM EST 25 mg Oral active Take 1 tablet by mouth every 8 (eight) hours [facility] Isosorbide Dinitrate 20 MG Oral Tablet I sosorbide Dinitrate 20 MG Oral Tablet (ISORDIL) Isosorbide Dinitrate 20 MG Oral Tablet (ISORDIL) 09/27 12:00:00 AM EST 20 mg Oral active Take 1 tablet by mouth Three times daily [facility] Furosemide 40 MG Oral Tablet Furosemide 40 MG Oral Tab let (LASIX) Furosemide 40 MG Oral Tablet (LASIX) 09/27/2020 12:00:00 AM EST 40 mg Oral aborted Take 1 tablet by mouth daily [facility] Hydralazine Hydrochloride 25 MG Oral Tab let hydrALAZINE (APRESOLINE) 25 MG tablet hydrALAZINE (APRESOLINE) 25 MG tablet 09/27/2020 12:00:00 AM EST 25 mg Oral active Take 25 mg by mouth 3 (three) times a day [facility] Isosorbide Dinitrate 20 MG Oral Tablet i sosorbide dinitrate (ISORDIL) 20 MG tablet isosorbide dinitrate (ISORDIL) 20 MG tablet 09/27/2020 12:00:00 AM EST 20 mg Oral active Take 20 mg by mouth 3 (t hree) times a day [facility] carvedilol 6.25 MG Oral Tablet carvedilol (COREG) 6.25 MG tablet carvedilol (COREG) 6.25 MG tablet 09/27/2020 12:00:00 AM EST 6.25 mg Oral active Take 6.25 mg by mouth 2 (two) times a day [facility] carvedilol 6.25 MG Oral Tablet carvedilol (COREG) 6.25 MG tablet carvedilol (COREG) 6.25 MG tablet 09/27/2020 12:00:00 AM EST 1 {tbl} Oral aborted Take 1 tablet by mouth 2 (two) times a day [facility] Isosorbide Dinitrate 20 MG Oral Tablet i sosorbide dinitrate (ISORDIL) 20 MG tablet isosorbide dinitrate (ISORDIL) 20 MG tablet 09/27/2020 12:00:00 AM EST 1 {tbl} Oral aborted Take 1 tablet by mouth 3 (three) times a day [facility] sodium polystyrene (KAYEXALATE) powder 15 g [id number] 09/26/2020 11:45:00 PM EST 15 g Oral completed 15 g, Oral, Once, 09/26/20 at 2345, For 1 dose
Mix with 60 mL water and shake well.
[facility] Medication administered onsite carvedilol 6.25 MG Oral Tablet carvedilol (COREG) tabl et 6.25 mg carvedilol (COREG) tablet 6.25 mg 09/26/2020 09:00:00 PM EST 6.25 mg Oral active 6.25 mg, Oral, 2 Times Daily, First dose on Sat09/26/20 at 2100, For 30 days
Check vital signs before administering
[facility] Medication administered onsite Acetaminophen 325 MG [...] mg from all sources in 24 hours.
[facility] Medication administered onsite Hydralazine Hydrochloride 25 MG Oral Tab let hydrALAZINE (APRESOLINE) tablet 25 mg hydrALAZINE (APRESOLINE) tablet 25 mg 09/26/2020 05:00:00 PM EST 25 mg Oral active 25 mg, Oral, E very 8 hours Standard (3 times per day), First dose on Sat09/26/20 at 1700, For 30 days
Check vital signs before administering
[facility] Medication administered onsite Magnesium Oxide 400 MG Oral Tablet Magnesium Oxide (MA G-OX) tablet 400 mg Magnesium Oxide (MAG-OX) tablet 400 mg 09/26/2020 04:15:00 AM EST 4 00 mg Oral completed 400 mg, Oral, Once, Sat at 0415, For 1 dose [facility] Medication administered onsite Isosorbide Dinitrate 20 MG Oral Tablet i sosorbide dinitrate (ISORDIL) tablet 20 mg isosorbide dinitrate (ISORDIL) tablet 20 mg 09/25/2020 05:00:00 PM EST 20 mg Oral active 20 mg, Ora l, Three Times Daily Standard, First dose on Sat09/25/20 at 1700, For 30 days
Hazardous pharmaceutical waste - Black bin disposal.
[facility] Medication administered onsite Hydralazine Hydrochloride 20 MG/ML Injec table Solution hydrALAZINE (APRESOLINE) injection 10 mg hydrALAZINE (APRESOLINE) injection 10 mg 09/25/2020 01 :15:00 PM EST 10 mg Intravenous completed 10 mg, Intravenous, Once, 09/25/20 at 1315, For 1 dose
Dilute in 25-50 ml normal saline. Administer over 30 minutes.
[facility] Medication administered onsite Aspirin 81 MG Chewable Tablet aspirin chewable tablet 81 mg aspirin chewable tablet 81 mg 09/25/2020 09:00:00 AM EST 81 mg Oral activ e 81 mg, Oral, Daily Standard, First dose on 09/25/20 at 0900, For 30 days
Chew tablet before swallowing.
[facility] Medication administered onsite 10 ML Atropine Sulfate 0.1 MG/ML Prefilled Syringe atr opine injection 0.5 mg atropine injection 0.5 mg 09/25/2020 02:30:00 AM EST 0.5 mg Intrave nous completed 0.5 mg, Intravenous, Once, Sun at 0230, For 1 dose [facility] Medication administered onsite furosemide (LASIX) injection 20 mg [id number] 09/25/2020 02:30:00 AM EST 20 mg Intravenous completed 20 mg, I ntravenous, Once, 09/25/20 at 0230, For 1 dose
Notify provider if systolic blood pressure less than: 90 [facility] Medication administered onsite 10 ML Atropine Sulfate 0.1 MG/ML Prefilled Syringe atr opine 1 MG/10ML injection atropine 1 MG/10ML injection 09/25/2020 01:45:43 AM EST completed Starting 09/25/20 at 0145, For 1 dose
Esteban Page: cabinet override
[facility] Medication administered onsite Albuterol 1 MG/ML Inhalant Solution albu terol (PROVENTIL) CONCENTRATED 0.5 % nebulizer solution 20 mg albuterol (PROVENTIL) CONCENTRATED 0 .5 % nebulizer solution 20 mg 09/25/2020 01:30:00 AM EST 20 mg Nebulization completed 20 mg, Nebulization, Once, 09/25/20 at 0130, For 1 dose [facility] Medication administered onsite furosemide (LASIX) injection 20 mg [id number] 09/25/2020 01:30:00 AM EST 20 mg Intravenous completed 20 mg, I ntravenous, Once, 09/25/20 at 0130, For 1 dose
Notify provider if systolic blood pressure less than: 90 [facility] Medication administered onsite sodium phosphate infusion 6 mmol/100 mL (premix) 09/25 01:30:00 AM EST 6 mmol Intravenous completed 6 mmol, Intravenous, at 25 mL/hr, Once, 09/25/20 at 0130, For 1 dose
Slower infusion rate (e.g. over 4 to 6 hours) are recommended in patients with renal impairment and/or less severe hypophosp hatemia.
[facility] Medication administered onsite sennosides, SENIOR CARE 8.6 MG Oral Tablet senna tablet 2 tablet sen na tablet 2 tablet 09/25/2020 01:30:00 AM EST 2 {tbl} Oral completed 2 tablet, Oral, Once, 09/25/20 at 0130, For 1 dose [facility] Medication administered onsite magnesium sulfate in dextrose 5 % infusion (premix) 1 g [id number] 09/25/2020 01:30:00 AM EST 1 g Intravenous completed 1 g, Intravenous, Administer over 60 Minutes, Once, 09/25/20 at 0130, For 1 dose [facility] Medication administered onsite sodium polystyrene (KAYEXALATE) powder 15 g [id number] 09/25/2020 01:30:00 AM EST 15 g Oral completed 15 g, Oral, Once, 09/25/20 at 0130, For 1 dose
Mix with 60 mL water and shake well.
[facility] Medication administered onsite heparin (porcine) 5000 UNIT/ML injection 5,000 Units [id number] 09/24/2020 09:00:00 PM EST 5000 U Subcutaneous active 5,000 Units, Subcutaneous, 2 Times Daily, First dose on 09/24/20 at 2100, For 30 days [facility] Medication administered onsite 50 ML Magnesium Sulfate 40 MG/ML Injecti on magnesium sulfate infusion 2 g/50 mL (premix) magnesium sulfate infusion 2 g/50 mL (premix) 09/24/19 08:30:00 PM EST 2 g Intravenous completed 2 g, Intravenous, Administer over 60 Minutes, Once, 09/24/20 at 2030, For 1 dose [facility] Medication administered onsite sodium polystyrene (KAYEXALATE) powder 15 g [id number] 09/24/2020 08:15:00 PM EST 15 g Oral completed 15 g, Oral, Once, 09/24/20 at 2015, For 1 dose
Mix with 60 mL water and shake well.
[facility] Medication administered onsite Hydralazine Hydrochloride 10 MG Oral Tab let hydrALAZINE (APRESOLINE) tablet 10 mg hydrALAZINE (APRESOLINE) tablet 10 mg 09/24/2020 06:30:00 PM EST 10 mg Oral aborted 10 mg, Oral, E very 8 hours, First dose (after last modification) on 09/24/20 at 1830, For 30 days
Check vital signs before administering
[facility] Medication administered onsite furosemide (LASIX) injection 20 mg [id number] 09/24/2020 06:30:00 PM EST 20 mg Intravenous completed 20 mg, I ntravenous, Daily Standard, First dose on 09/24/20 at 1830, For 5 days
Notify provider if systolic blood pressure less than: 90 [facility] Medication administered onsite insulin lispro (HumaLOG) injection LOW DOSE EATING INS ULIN patients 1-8 Units [id number] 09/24/2020 06:15:00 PM EST U Subcutaneous aborted 1-8 Units, Subcutaneous, Three Times Daily-With Meals, First dose on 09/24/20 at 1815, For 30 days
Nursing MUST open the 'SQ Insulin Dosing Charts' Sidebar Report, or, the Patient Summary or Summary Report within the ED.
[facility] Medication administered onsite Glucose 0.417 MG/MG Oral Gel glucose (GLUTOSE) 40 % or al gel 15 g glucose (GLUTOSE) 40 % oral gel 15 g 09/24/2020 05:54:12 PM EST 15 g Oral active 15 g, Oral, PRN, Low blood s ugar, for gluose 55-69 mg/dl and able to take PO, Starting 09/24/20 at 1754, For 30 days [facility] Medication administered onsite Glucagon 1 MG Injection glucagon (human recombinant) ( GLUCAGEN) injection 1 mg glucagon (human recombinant) (GLUCAGEN) injection 1 mg 09/24/2020 05:54:12 PM EST 1 mg Intramuscular active 1 mg, Intramuscular, PRN, for glucose <55 without IV access, Starting 09/24/20 at 1754, For 30 days [facility] Medication administered onsite isoproterenol (ISUPREL) 1 mg in dextrose 5 % 250 mL (0.004 m g/mL) infusion 09/24/2020 05:45:00 PM EST 2 ug/min Intravenous aborted 2 mcg/min (30 mL/hr), Intravenous, at 30 mL/hr, Continuous, Starting 09/24/20 at 1745, For 30 days
Starting dose = 2 mcg/min Titrate to maintain HR > 60 Increase by 1-2 mcg/min Max Dose = 10 mcg/min
[facility] Medication administered onsite Hydralazine Hydrochloride 10 MG Oral Tab let hydrALAZINE (APRESOLINE) 10 MG tablet hydrALAZINE (APRESOLINE) 10 MG tablet 09/01/2020 12:00:00 AM EST 10 mg Oral active Take 1 tablet (10 mg total) by mouth 3 (three) times a day [facility] Furosemide 40 MG Oral Tablet furosemide (LASIX) 40 MG tablet furosemide (LASIX) 40 MG tablet 09/01/2020 12:00:00 AM EST 40 mg Oral activ e Take 1 tablet (40 mg total) by mouth daily [facility] Hydralazine Hydrochloride 10 MG Oral Tab let hydrALAZINE (APRESOLINE) 10 MG tablet hydrALAZINE (APRESOLINE) 10 MG tablet 08/13/2020 12:00:00 AM EST aborted [facility] 10 mg 07/07/2020 12:00:00 AM [...] 06/13/2020 12:00:00 AM EDT ORAL completed [facility] ([facility]) Isosorbide Mononitrate 20 MG Oral Tablet Isosorbide Mononitr ate 06/13/2020 12:00:00 AM EDT ORAL active M EDENT ([facility]) 10 mg 06/08/2020 12:00:00 AM EDT tablet 90 TAKE ONE TABLET BY MOUTH THREE TIMES A DAY TAKE ONE TABLET BY MOUTH THREE TIMES A DAY SOLD: 06/10/2020 [facility] Hydralazine Hydrochloride 10 MG Oral Tab let hydrALAZINE (APRESOLINE) 10 MG tablet hydrALAZINE (APRESOLINE) 10 MG tablet 06/07/2020 12:00:00 AM EDT 10 mg Oral active Take 1 tablet (10 mg total) by mouth 3 (three) times a day [facility] 40 mg 06/02/2020 12:00:00 AM EDT tablet 60 TAKE 1 TABLET [40MG] BY MOUTH TWO TIMES A DAY AT 9:00AM AND 5:00PM TAKE 1 TABLET [40MG] BY MOUTH TWO TIMES A DAY AT 9:00AM AND 5:00PM SOLD: 06/03/2020 [facility] 20 mg 06/02/2020 12:00:00 AM EDT tablet 60 TAKE 1 TABLET [20MG] BY MOUTH TWO TIMES A DAY TAKE 1 TABLET [20MG] BY MOUTH TWO TIMES A DAY SOLD: 06/03/2020 [facility] Spironolactone 25 MG Oral Tablet spironolactone (ALDAC TONE) 25 MG tablet spironolactone (ALDACTONE) 25 MG tablet 06/02/2020 12:00:00 AM EDT 0.5 {tbl} Oral active Take 0.5 tablets by mouth daily [facility] Furosemide 40 MG Oral Tablet furosemide (LASIX) 40 MG tablet furosemide (LASIX) 40 MG tablet 06/02/2020 12:00:00 AM EDT 60 mg Oral activ e Take 60 mg by mouth daily [facility] 25 mg 06/02/2020 12:00:00 AM EDT tablet 15 TAKE 1/2 TABLET BY MOUTH DAILY TAKE 1/2 TABLET BY MOUTH DAILY SOLD: 06/03/2020 [facility] 20 mg 04/11/2020 12:00:00 AM [...] MOUTH EVERY DAY SOLD: 12/28/2020 [facility] 24 HR Isosorbide Mononitrate 30 [...] 12:00:00 AM EDT ORAL complete d [facility] ([facility]) 1,000 mcg/mL 03/29/2020 12:00:00 AM EDT solution [...] EVERY 10 DAYS SOLD: 09/30/2020 [facility] Isosorbide Dinitrate 20 MG Oral Tablet i sosorbide dinitrate (ISORDIL) 20 MG tablet isosorbide dinitrate (ISORDIL) 20 MG tablet 20 mg Oral active Take 20 mg by mouth 2 (two) times a day [facility] Spironolactone 25 MG Oral Tablet Spironolactone 25 MG Oral Tablet (ALDACTONE) Spironolactone 25 MG Oral Tablet (ALDACTONE) 12.5 mg Oral aborted Take 12.5 mg by mouth daily [facility] Isosorbide Mononitrate 20 MG Oral Tablet Isosorbide Mononitrate 20 MG Oral Tablet (ISMO) Isosorbide Mononitrate 20 MG Oral Tablet (ISMO) 20 mg Oral aborted Take 20 mg by mouth Two Time s Daily [facility] Insurance Providers Payer name Policy type / Coverage type Policy ID Covered constitution party ID Covered constitution party's relationship to mejia Policy Mejia Plan Information MEDICARE [id number] xxxxxxxxxxx [id number] MEDICARE [id number] SP [id number] [employer] Medicare Primary [id number] Self [id number] MEDICARE [id number] SP [id number] MEDICARE M [id number] S [id number] [employer] Medicare Primary [id number] Self [id number] Medicare Railroad Medicare Primary [id number] Self [id number] Medicare [employer] Medicare Primary [id number] Self [id number] MEDICARE [id number] SP [id number] MEDICARE A [id number] Self [id number] MEDICARE [id number] Elsa [id number] UNITED HE[employer]CARE GE PARTB [id number] SP [id number] [facility] [id number] Elsa [id number] [facility] [id number] xxxxxxxxx [id number] [facility] UNITED HEALTH CARE U [id number] Self [id number] [employer] Medigap Part B [id number] Self Medicare Railroad Medicare Primary [id number] Self [facility] INDEMNITY O [id number] S [id number] UNITED HEALTHCARE O [id number] S [id number] MEDICARE -O/P [id number] 18 [id number] MEDICARE [id number] SP [id number] UNITED HEALTHCARE RET RR [id number] SP [id number] MEDICARE [id number] SP [id number] UNITED HEALTHCARE RET RR [id number] SP [id number] UNITED HEALTHCARE RET RR [id number] SP [id number] [employer] MEDICARE C [id number] S [id number] [facility] GE PAR O [id number] S [id number] MEDICARE C [id number] S [id number] [facility] Commercial Medigap Part B [id number] Self [id number] Medicare Railroad Medicare Primary [id number] Self [id number] [facility] Part B [id number] Self [id number] Medicare Railroad Medicare Primary [id number] Self [id number] [facility] GE PARTB [id number] SP [id number] [employer] MEDICARE C [id number] S [id number] [facility] PARTB [id number] SP [id number] Problems, Conditions, and Diagnoses Code Display Name Description Problem Type Effective Dates Data Source(s) 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 Chronic combined systolic (congestive) a Diagnosis 01/04/2021 10:54:41 AM EDT [facility] R79.89 Other specified abnormal findings of blo od chemistry Other specified abnormal findings of blo Diagnosis 11/30/2020 10:11:54 AM EDT [facility] T81.49XA Infection following a proced ure, other surgical site, initial encounter Infection following a procedure, other s Diagnosis 021 10:11:54 AM EDT [facility] R07.89 Other chest pain Other chest pain Diagnosis 11/30/2020 10 :11:54 AM EDT [facility] Z95.0 Presence of cardiac pacemaker Presence of cardiac pace maker Diagnosis 11/30/2020 10:11:54 AM EDT [facility] N18.4 Chronic kidney disease, stage 4 (severe) Chronic kidney disease, stage 4 (severe) Diagnosis 11/30/2020 10:11:54 AM EDT [facility] I44.2 Atrioventricular block, complete Atrioventricula r block, complete Diagnosis 11/30/2020 10:11:54 AM EDT [facility] E03.9 Hypothyroidism, unspecified Hypothyroidism, unspecifie d Diagnosis 10/27/2020 02:16:53 PM [facility] R94.6 Abnormal results of thyroid function [place] dies Abnormal results of thyroid function [place] Diagnosis 10/20/2020 08:35:06 AM [facility] R06.00 Dyspnea, unspecified Dyspnea, unspecified Diagnosis 10/06/2020 08:25:42 AM [facility] I10 Essential (primary) hypertension Essential (primary) h ypertension Diagnosis 10/06/2020 08:25:42 AM [facility] D64.9 Anemia, unspecified Anemia, unspecified Diagnosis 0 10/06/2020 08:25:42 AM [facility] I44.2 Atrioventricular block, complete Atrioventricula r block, complete Diagnosis 09/24/2020 06:36:49 PM [facility] 3rd degree AV block, 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, needs biventricular pacer placed Diagnosis 09/24/2020 05:25:00 PM [facility] 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 Acquired absence of other specified parts of digestive tract Problem 01:00:00 AM EDT [facility] ([facility] ) E86.0 Dehydration Dehydration Problem 04/16/2021 01:00:00 AM EDT [facility] ([facility]) 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, or unspecified chronic kidney disease Hypertensive heart and chronic kidney di sease with heart failure and stage 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, or unspecified chronic kidney disease Problem 04/16/2021 01:00:00 AM EDT [facility] ([facility]) I50.22 Chronic systolic (congestive) heart fail ure Chronic systolic (congestive) heart failure Problem 04/16/2021 01:00:00 AM EDT [facility] ([facility]) N18.4 Chronic kidney disease, stage 4 (severe) Chronic kidney disease, stage 4 (severe) Problem 04/16/2021 01:00:00 AM EDT [facility] ([facility]) E87.2 Acidosis Acidosis Problem 04/16/2021 01:00:00 AM ED T [facility] ([facility]) N17.9 Acute kidney failure, unspecified Acute kidney f ailure, unspecified Problem 04/16/2021 01:00:00 AM EDT [facility] ([facility]) D51.0 Vitamin B12 deficiency anemia due to int rinsic factor deficiency Vitamin B12 deficiency anemia due to intrinsic factor deficiency Problem 04/16/2021 01:00:00 AM EDT [facility] ([facility] ) 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 myocardial infarction Pr oblem 04/16/2021 01:00:00 AM EDT [facility] ([facility] ) G43.909 Migraine, unspecified, not intractable, without status migrainosus Migraine, unspecified, not intractable, without status migrainosus Problem 04/16/2021 01:00:00 AM EDT [facility] ([facility] ) Z95.0 Presence of cardiac pacemaker Presence of cardiac pace maker Problem 04/16/2021 01:00:00 AM EDT [facility] ([facility] ) Z91.81 History of falling History of falling Problem 01:00:00 AM EDT [facility] ([facility]) Z79.82 intermediate frame tender (current) use of aspirin custodial (cu rrent) use of aspirin Problem 04/16/2021 01:00:00 AM EDT [facility] ([facility]) 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), 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 transient ischemic attack (TIA), and cerebral infarction without residual deficits Problem 04/16/2021 01:00:00 AM EDT [facility] ([facility] ) Z87.891 Personal history of nicotine dependence Personal history of nicotine dependence Problem 04/16/2021 01:00:00 AM EDT [facility] ([facility]) 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, 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, recurrent Problem 04/10/2021 01:00:00 AM E DT [facility] ([facility]) R79.89 Abnormal thyroid blood test Abnormal thyroid blood lalita t [id number] 10/20/2020 12:00:00 AM EST [facility] R07.89 Other chest pain Other chest pain [id number] 10/14/2020 12 :00:00 AM EST [facility] R06.00 TYLER (dyspnea on exertion) TYLER (dyspnea on exertion) [id number] 10/06/2020 12:00:00 AM EST [facility] T81.49XA Incisional infection Incisional infection [id number] 10/06/2020 12:00:00 AM EST [facility] Z95.0 Pacemaker Pacemaker [id number] 10/06/2020 12:00:00 AM ES T [facility] 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 Third degree AV block [id number] 10/06/2020 12:00:00 AM [facility] I10 Essential hypertension Essential hypertension [id number] 06/07/2020 12:00:00 AM EDT [facility] 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 4 chronic kidney disease [id number] 06/07/2020 12:00:00 AM EDT [facility] 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 [id number] 06/07/2020 12:00:00 AM EDT [facility] Surgeries/Procedures Procedure Description Date Indications Data Source(s) Med: Lidocaine Jelly 2% 6ml Intravesically (Glydo) 05/31/2021 12:00:00 AM EDT eCW1 ([facility]) TCM-Mod 04/19/2021 12:00:00 AM EDT Noelle KRAUS ([facility]) OFFICE OUTPATIENT VISIT 25 MINUTES 12/19/2020 12:00:00 AM EDT [facility] ([facility]) ECG ROUTINE ECG W/LEAST 12 LDS W/I&R <td>POCT AMB EKG</td><td>Routine</td><td>10/20/2020 11:27 AM EST</td><td> Other chest pain</td><td> </td> 10/20/2020 04:27:00 PM EST Other chest pain [facility] Other chest pain BLOOD COUNT COMPLETE AUTO&AUTO DIFRNTL WBC COUNT <td>C BC AND DIFFERENTIAL</td><td>Routine</td><td>10/09/2020</td><td></td><td> </td> 10/09/2020 12:00:00 AM EST [facility] HEPATIC FUNCTION PANEL <td>HEPATIC FUNCTION PANEL</td><td>Routine</td><td>10/09/2020</td><td></td><td> </td> 10/09/2020 12:00:00 AM EST [facility] BASIC METABOLIC PANEL CALCIUM TOTAL <td>BASIC METABOLI C PANEL</td><td>Routine</td><td>10/09/2020</td><td></td><td> </td> 10/09/2020 12:00:00 AM EST [facility] POCT GLUCOSE, DOCKED <td>POCT GLUCOSE, DOCKED</td ><td>Routine</td><td>09/28/2020 11:33 AM EST</td><td></td><td> </td> 09/28/2020 11:33:00 AM [facility] POCT GLUCOSE, DOCKED <td>POCT GLUCOSE, DOCKED</td ><td>Routine</td><td>09/28/2020 7:50 AM EST</td><td></td><td> </td> 09/28/2020 07:50:00 AM [facility] BLOOD COUNT COMPLETE AUTOMATED <td>CBC</td><td>Routine </td><td>09/28/2020 5:18 AM EST</td><td></td><td> </td> 09/28/2020 05:18:00 AM [facility] PHOSPHORUS INORGANIC <td>PHOSPHORUS LEVEL</td><td >Routine</td><td>09/28/2020 5:18 AM EST</td><td></td><td> </td> 09/28/2020 05:18:00 AM [facility] MAGNESIUM <td>MAGNESIUM LEVEL</td><td> Routine</td><td>09/28/2020 5:18 AM EST</td><td></td><td> </td> 09/28/2020 05:18:00 AM [facility] BASIC METABOLIC PANEL CALCIUM TOTAL <td>BASIC METABOLI C PANEL</td><td>Routine</td><td>09/28/2020 5:18 AM EST</td><td></td><td> </td> 09/28/2020 05:18:00 AM [facility] XR CHEST FRONTAL ONLY [id number] <td>XR CHEST FRONTAL ONLY [id number]</td><td>Routine</td><td>09/27/2020 10:46 PM EST</td><td></td><td> </td> 09/27/2020 10:46:50 PM [facility] GLUCOSE QUANTITATIVE BLOOD XCPT REAGENT STRIP <td>POCT GLUCOSE, DOCKED</td><td>Routine</td><td>09/27/2020 9:53 PM EST</td><td></td><td> </td> 09/27/2020 09:53:00 PM [facility] TROPONIN QUANTITATIVE <td>TROPONIN T</td><td>Routi ne</td><td>09/27/2020 8:36 PM EST</td><td></td><td> </td> 09/27/2020 08:36:00 PM [facility] EKG 12-LEAD - CMAXX REPORT <td>EKG 12-LEAD - CMAXX REPORT</td><td></td><td>09/27/2020 7:38 PM EST</td><td></td><td></td> 09/27/2020 07:38:26 PM [facility] EKG 12-LEAD - CMAXX REPORT <td>EKG 12-LEAD - CMAXX REPORT</td><td></td><td>09/27/2020 7:38 PM EST</td><td></td><td></td> 09/27/2020 07:38:26 PM [facility] EKG 12-LEAD <td>EKG 12-LEAD</td><td>Rout ine</td><td>09/27/2020 7:38 PM EST</td><td></td><td></td> 09/27/2020 07:38:26 PM [facility] EKG 12-LEAD <td>EKG 12-LEAD</td><td>Rout ine</td><td>09/27/2020 7:38 PM EST</td><td></td><td> </td> 09/27/2020 07:38:26 PM [facility] GLUCOSE QUANTITATIVE BLOOD XCPT REAGENT STRIP <td>POCT GLUCOSE, DOCKED</td><td>Routine</td><td>09/27/2020 5:05 PM EST</td><td></td><td> </td> 09/27/2020 05:05:00 PM [facility] CARDIAC DEVICE (IMPLANT) CHECK <td>CARDIAC DEVICE (IMP LANT) CHECK</td><td>Routine</td><td>09/27/2020 12:33 PM EST</td><td></td><td></td> 09/27/2020 12:33:11 PM [facility] GLUCOSE QUANTITATIVE BLOOD XCPT REAGENT STRIP <td>POCT GLUCOSE, DOCKED</td><td>Routine</td><td>09/27/2020 12:15 PM EST</td><td></td><td> </td> 09/27/2020 12:15:00 PM [facility] RADIOLOGY REPORT <td>RADIOLOGY REPORT</td><td ></td><td>09/27/2020 10:53 AM EST</td><td></td><td></td> 09/27/2020 10:53:55 AM [facility] CARDIAC REPORT <td>CARDIAC REPORT</td><td>< /td><td>09/27/2020 10:53 AM EST</td><td></td><td></td> 09/27/2020 10:53:54 AM [facility] CARDIAC REPORT <td>CARDIAC REPORT</td><td>< /td><td>09/27/2020 10:53 AM EST</td><td></td><td></td> 09/27/2020 10:53:54 AM [facility] CARDIAC REPORT <td>CARDIAC REPORT</td><td>< /td><td>09/27/2020 10:53 AM EST</td><td></td><td></td> 09/27/2020 10:53:53 AM [facility] GLUCOSE QUANTITATIVE BLOOD XCPT REAGENT STRIP <td>POCT GLUCOSE, DOCKED</td><td>Routine</td><td>09/27/2020 8:52 AM EST</td><td></td><td> </td> 09/27/2020 08:52:00 AM [facility] BLOOD COUNT COMPLETE AUTOMATED <td>CBC</td><td>Routine </td><td>09/27/2020 5:01 AM EST</td><td></td><td> </td> 09/27/2020 05:01:00 AM [facility] PHOSPHORUS INORGANIC <td>PHOSPHORUS LEVEL</td><td >Routine</td><td>09/27/2020 5:01 AM EST</td><td></td><td> </td> 09/27/2020 05:01:00 AM [facility] MAGNESIUM <td>MAGNESIUM LEVEL</td><td> Routine</td><td>09/27/2020 5:01 AM EST</td><td></td><td> </td> 09/27/2020 05:01:00 AM [facility] BASIC METABOLIC PANEL CALCIUM TOTAL <td>BASIC METABOLI C PANEL</td><td>Routine</td><td>09/27/2020 5:01 AM EST</td><td></td><td> </td> 09/27/2020 05:01:00 AM [facility] EKG 12-LEAD - CMAXX REPORT <td>EKG 12-LEAD - CMAXX REPORT</td><td></td><td>09/27/2020 12:29 AM EST</td><td></td><td></td> 09/27/2020 12:29:01 AM [facility] EKG 12-LEAD - CMAXX REPORT <td>EKG 12-LEAD - CMAXX REPORT</td><td></td><td>09/27/2020 12:29 AM EST</td><td></td><td></td> 09/27/2020 12:29:01 AM [facility] EKG 12-LEAD <td>EKG 12-LEAD</td><td>Rout ine</td><td>09/27/2020 12:29 AM EST</td><td></td><td> </td> 09/27/2020 12:29:01 AM [facility] MAGNESIUM <td>MAGNESIUM LEVEL</td><td> Routine</td><td>09/26/2020 10:03 PM EST</td><td></td><td> </td> 09/26/2020 10:03:00 PM [facility] BASIC METABOLIC PANEL CALCIUM TOTAL <td>BASIC METABOLI C PANEL</td><td>Routine</td><td>09/26/2020 10:03 PM EST</td><td></td><td> </td> 09/26/2020 10:03:00 PM [facility] GLUCOSE QUANTITATIVE BLOOD XCPT REAGENT STRIP <td>POCT GLUCOSE, DOCKED</td><td>Routine</td><td>09/26/2020 8:30 PM EST</td><td></td><td> </td> 09/26/2020 08:30:00 PM [facility] PHOSPHORUS INORGANIC <td>PHOSPHORUS LEVEL</td><td >Routine</td><td>09/26/2020 8:30 PM EST</td><td></td><td> </td> 09/26/2020 08:30:00 PM [facility] MAGNESIUM <td>MAGNESIUM LEVEL</td><td> Routine</td><td>09/26/2020 8:30 PM EST</td><td></td><td> </td> 09/26/2020 08:30:00 PM [facility] BASIC METABOLIC PANEL CALCIUM TOTAL <td>BASIC METABOLI C PANEL</td><td>Routine</td><td>09/26/2020 8:30 PM EST</td><td></td><td> </td> 09/26/2020 08:30:00 PM [facility] GLUCOSE QUANTITATIVE BLOOD XCPT REAGENT STRIP <td>POCT GLUCOSE, DOCKED</td><td>Routine</td><td>09/26/2020 5:19 PM EST</td><td></td><td> </td> 09/26/2020 05:19:00 PM EST [facility] XR CHEST FRONTAL ONLY [id number] <td>XR CHEST FRONTAL ONLY [id number]</td><td>STAT</td><td>09/26/2020 2:47 PM EST</td><td></td><td> </td> 09/26/2020 02:47:00 PM EST [facility] INSERTION/REPLACEMENT, PERMANENT PACEMAK ER W/TRANSVENOUS ELECTRODE(S) ATRIAL AND VENTRICULAR <td>INSERTION/REPLACEMENT, PERMANENT PAC EMAKER W/TRANSVENOUS ELECTRODE(S) ATRIAL AND VENTRICULAR</td><td></td><td>09/26/2020 12:10 PM EST</td><td> CHB (complete heart block)</td><td></td> 09/26/2020 12:10:00 PM EST - 09/26/2020 02:36:00 PM EST CHB (complete heart block) [facility] CHB (complete heart block) TCAT INSJ/RPL PERM LEADLESS PACEMAKER RV W/IMG <td>TCA T INSJ/RPL PERM LEADLESS PACEMAKER RV W/IMG</td><td></td><td>09/26/2020 12:10 PM EST</td><td> CHB (complete heart block)</td><td></td> 09/26/2020 12:10:00 PM EST - 09/26/2020 02:36:00 PM EST CHB (complete heart block) [facility] CHB (complete heart block) EP LAB PROCEDURE LOG <td>EP LAB PROCEDURE LOG</td ><td></td><td>09/26/2020 11:24 AM EST</td><td></td><td></td> 09/26/2020 11:24:40 AM EST [facility] EP LAB PROCEDURE <td>EP LAB PROCEDURE</td><td >Routine</td><td>09/26/2020 11:24 AM EST</td><td></td><td></td> 09/26/2020 11:24:15 AM [facility] ECHO TTHRC R-T 2D W/WOM-MODE COMPL SPEC&COLR DOP <td>E CHOCARDIOGRAM 2D COMPLETE</td><td>Routine</td><td>09/26/2020 9:54 AM EST</td><td></td><td> </td> 09/26/2020 09:54:35 AM [facility] GLUCOSE QUANTITATIVE BLOOD XCPT REAGENT STRIP <td>POCT GLUCOSE, DOCKED</td><td>Routine</td><td>09/26/2020 6:06 AM EST</td><td></td><td> </td> 09/26/2020 06:06:00 AM [facility] BLOOD COUNT COMPLETE AUTOMATED <td>CBC</td><td>Routine </td><td>09/26/2020 3:18 AM EST</td><td></td><td> </td> 09/26/2020 03:18:00 AM [facility] PHOSPHORUS INORGANIC <td>PHOSPHORUS LEVEL</td><td >Routine</td><td>09/26/2020 3:18 AM EST</td><td></td><td> </td> 09/26/2020 03:18:00 AM [facility] MAGNESIUM <td>MAGNESIUM LEVEL</td><td> Routine</td><td>09/26/2020 3:18 AM EST</td><td></td><td> </td> 09/26/2020 03:18:00 AM [facility] BASIC METABOLIC PANEL CALCIUM TOTAL <td>BASIC METABOLI C PANEL</td><td>Routine</td><td>09/26/2020 3:18 AM EST</td><td></td><td> </td> 09/26/2020 03:18:00 AM [facility] GLUCOSE QUANTITATIVE BLOOD XCPT REAGENT STRIP <td>POCT GLUCOSE, DOCKED</td><td>Routine</td><td>09/25/2020 9:57 PM EST</td><td></td><td> </td> 09/25/2020 09:57:00 PM [facility] GLUCOSE QUANTITATIVE BLOOD XCPT REAGENT STRIP <td>POCT GLUCOSE, DOCKED</td><td>Routine</td><td>09/25/2020 6:14 PM EST</td><td></td><td> </td> 09/25/2020 06:14:00 PM [facility] GLUCOSE QUANTITATIVE BLOOD XCPT REAGENT STRIP <td>POCT GLUCOSE, DOCKED</td><td>Routine</td><td>09/25/2020 5:33 PM EST</td><td></td><td> </td> 09/25/2020 05:33:00 PM [facility] GLUCOSE QUANTITATIVE BLOOD XCPT REAGENT STRIP <td>POCT GLUCOSE, DOCKED</td><td>Routine</td><td>09/25/2020 5:11 PM EST</td><td></td><td> </td> 09/25/2020 05:11:00 PM [facility] GLUCOSE QUANTITATIVE BLOOD XCPT REAGENT STRIP <td>POCT GLUCOSE, DOCKED</td><td>Routine</td><td>09/25/2020 5:08 PM EST</td><td></td><td> </td> 09/25/2020 05:08:00 PM [facility] TROPONIN QUANTITATIVE <td>TROPONIN T</td><td>Routi ne</td><td>09/25/2020 3:29 PM EST</td><td></td><td> </td> 09/25/2020 03:29:00 PM [facility] GLUCOSE QUANTITATIVE BLOOD XCPT REAGENT STRIP <td>POCT GLUCOSE, DOCKED</td><td>Routine</td><td>09/25/2020 12:26 PM EST</td><td></td><td> </td> 09/25/2020 12:26:00 PM [facility] GLUCOSE QUANTITATIVE BLOOD XCPT REAGENT STRIP <td>POCT GLUCOSE, DOCKED</td><td>Routine</td><td>09/25/2020 8:39 AM EST</td><td></td><td> </td> 09/25/2020 08:39:00 AM [facility] GLUCOSE QUANTITATIVE BLOOD XCPT REAGENT STRIP <td>POCT GLUCOSE, DOCKED</td><td>Routine</td><td>09/25/2020 5:20 AM EST</td><td></td><td> </td> 09/25/2020 05:20:00 AM [facility] BLOOD COUNT COMPLETE AUTOMATED <td>CBC</td><td>Routine </td><td>09/25/2020 5:20 AM EST</td><td></td><td> </td> 09/25/2020 05:20:00 AM [facility] PHOSPHORUS INORGANIC <td>PHOSPHORUS LEVEL</td><td >Routine</td><td>09/25/2020 5:20 AM EST</td><td></td><td> </td> 09/25/2020 05:20:00 AM [facility] MAGNESIUM <td>MAGNESIUM LEVEL</td><td> Routine</td><td>09/25/2020 5:20 AM EST</td><td></td><td> </td> 09/25/2020 05:20:00 AM [facility] BASIC METABOLIC PANEL CALCIUM TOTAL <td>BASIC METABOLI C PANEL</td><td>Routine</td><td>09/25/2020 5:20 AM EST</td><td></td><td> </td> 09/25/2020 05:20:00 AM [facility] GLUCOSE QUANTITATIVE BLOOD XCPT REAGENT STRIP <td>POCT GLUCOSE, DOCKED</td><td>Routine</td><td>09/25/2020 4:27 AM EST</td><td></td><td> </td> 09/25/2020 04:27:00 AM [facility] GLUCOSE QUANTITATIVE BLOOD XCPT REAGENT STRIP <td>POCT GLUCOSE, DOCKED</td><td>Routine</td><td>09/25/2020 3:48 AM EST</td><td></td><td> </td> 09/25/2020 03:48:00 AM [facility] GLUCOSE QUANTITATIVE BLOOD XCPT REAGENT STRIP <td>POCT GLUCOSE, DOCKED</td><td>Routine</td><td>09/25/2020 3:17 AM EST</td><td></td><td> </td> 09/25/2020 03:17:00 AM [facility] GLUCOSE QUANTITATIVE BLOOD XCPT REAGENT STRIP <td>POCT GLUCOSE, DOCKED</td><td>Routine</td><td>09/25/2020 2:56 AM EST</td><td></td><td> </td> 09/25/2020 02:56:00 AM [facility] EKG 12-LEAD - CMAXX REPORT <td>EKG 12-LEAD - CMAXX REPORT</td><td></td><td>09/25/2020 2:00 AM EST</td><td></td><td></td> 09/25/2020 02:00:09 AM [facility] EKG 12-LEAD - CMAXX REPORT <td>EKG 12-LEAD - CMAXX REPORT</td><td></td><td>09/25/2020 2:00 AM EST</td><td></td><td></td> 09/25/2020 02:00:09 AM [facility] EKG 12-LEAD <td>EKG 12-LEAD</td><td>Rout ine</td><td>09/25/2020 2:00 AM EST</td><td></td><td> </td> 09/25/2020 02:00:09 AM [facility] BLOOD COUNT COMPLETE AUTOMATED <td>CBC</td><td>Routine </td><td>09/25/2020 12:35 AM EST</td><td></td><td> </td> 09/25/2020 12:35:00 AM [facility] PHOSPHORUS INORGANIC <td>PHOSPHORUS LEVEL</td><td >Routine</td><td>09/25/2020 12:35 AM EST</td><td></td><td> </td> 09/25/2020 12:35:00 AM [facility] MAGNESIUM <td>MAGNESIUM LEVEL</td><td> Routine</td><td>09/25/2020 12:35 AM EST</td><td></td><td> </td> 09/25/2020 12:35:00 AM [facility] BASIC METABOLIC PANEL CALCIUM TOTAL <td>BASIC METABOLI C PANEL</td><td>Routine</td><td>09/25/2020 12:35 AM EST</td><td></td><td> </td> 09/25/2020 12:35:00 AM [facility] GLUCOSE QUANTITATIVE BLOOD XCPT REAGENT STRIP <td>POCT GLUCOSE, DOCKED</td><td>Routine</td><td>09/25/2020 12:29 AM EST</td><td></td><td> </td> 09/25/2020 12:29:00 AM [facility] GLUCOSE QUANTITATIVE BLOOD XCPT REAGENT STRIP <td>POCT GLUCOSE, DOCKED</td><td>Routine</td><td>09/24/2020 11:12 PM EST</td><td></td><td> </td> 09/24/2020 11:12:00 PM [facility] COVID-19 PCR <td>COVID-19 PCR</td><td>Kavon santoyo</td><td>09/24/2020 10:27 PM EST</td><td></td><td> </td> 09/24/2020 10:27:00 PM [facility] GLUCOSE QUANTITATIVE BLOOD XCPT REAGENT STRIP <td>POCT GLUCOSE, DOCKED</td><td>Routine</td><td>09/24/2020 10:24 PM EST</td><td></td><td> </td> 09/24/2020 10:24:00 PM [facility] GLUCOSE QUANTITATIVE BLOOD XCPT REAGENT STRIP <td>POCT GLUCOSE, DOCKED</td><td>Routine</td><td>09/24/2020 9:49 PM EST</td><td></td><td> </td> 09/24/2020 09:49:00 PM [facility] GLUCOSE QUANTITATIVE BLOOD XCPT REAGENT STRIP <td>POCT GLUCOSE, DOCKED</td><td>Routine</td><td>09/24/2020 9:05 PM EST</td><td></td><td> </td> 09/24/2020 09:05:00 PM [facility] GLUCOSE QUANTITATIVE BLOOD XCPT REAGENT STRIP <td>POCT GLUCOSE, DOCKED</td><td>Routine</td><td>09/24/2020 8:26 PM EST</td><td></td><td> </td> 09/24/2020 08:26:00 PM [facility] NATRIURETIC PEPTIDE <td>PROBNP</td><td>Routine</ td><td>09/24/2020 7:02 PM EST</td><td></td><td> </td> 09/24/2020 07:02:00 PM [facility] BLOOD COUNT COMPLETE AUTOMATED <td>CBC</td><td>Routine </td><td>09/24/2020 7:02 PM EST</td><td></td><td> </td> 09/24/2020 07:02:00 PM [facility] TRIIODOTHYRONINE T3 FREE <td>T3, FREE</td><td>Routine </td><td>09/24/2020 7:02 PM EST</td><td></td><td> </td> 09/24/2020 07:02:00 PM [facility] THYROXINE FREE <td>T4, FREE</td><td>Routine </td><td>09/24/2020 7:02 PM EST</td><td></td><td> </td> 09/24/2020 07:02:00 PM [facility] PHOSPHORUS INORGANIC <td>PHOSPHORUS LEVEL</td><td >Routine</td><td>09/24/2020 7:02 PM EST</td><td></td><td> </td> 09/24/2020 07:02:00 PM [facility] MAGNESIUM <td>MAGNESIUM LEVEL</td><td> Routine</td><td>09/24/2020 7:02 PM EST</td><td></td><td> </td> 09/24/2020 07:02:00 PM [facility] HEMOGLOBIN GLYCOSYLATED A1C <td>HEMOGLOBIN A1C</td><td>Routine</td><td>09/24/2020 7:02 PM EST</td><td></td><td> </td> 09/24/2020 07:02:00 PM [facility] BASIC METABOLIC PANEL CALCIUM TOTAL <td>BASIC METABOLI C PANEL</td><td>Routine</td><td>09/24/2020 7:02 PM EST</td><td></td><td> </td> 09/24/2020 07:02:00 PM [facility] GLUCOSE QUANTITATIVE BLOOD XCPT REAGENT STRIP <td>POCT GLUCOSE, DOCKED</td><td>Routine</td><td>09/24/2020 6:49 PM EST</td><td></td><td> </td> 09/24/2020 06:49:00 PM [facility] EKG 12-LEAD - CMAXX REPORT <td>EKG 12-LEAD - CMAXX REPORT</td><td></td><td>09/24/2020 5:55 PM EST</td><td></td><td></td> 09/24/2020 05:55:51 PM [facility] EKG 12-LEAD - CMAXX REPORT <td>EKG 12-LEAD - CMAXX REPORT</td><td></td><td>09/24/2020 5:55 PM EST</td><td></td><td></td> 09/24/2020 05:55:51 PM [facility] EKG 12-LEAD <td>EKG 12-LEAD</td><td>Rout ine</td><td>09/24/2020 5:55 PM EST</td><td></td><td> </td> 09/24/2020 05:55:51 PM EST [facility] POCT AMB EKG <td>POCT AMB EKG</td><td>Kavon santoyo</td><td>09/01/2020 4:39 PM EST</td><td> Chronic combined systolic and diastolic congestive heart failure</td><td> </td> 09/01/2020 09:39:00 PM EST Chronic combined systolic and diastolic congestive hea rt failure [facility] Chronic combined systolic and diastolic congestive heart failure BLOOD COUNT COMPLETE AUTO&AUTO DIFRNTL WBC COUNT <td>C BC AND DIFFERENTIAL</td><td>Routine</td><td>07/26/2020</td><td></td><td> </td> 07/26/2020 12:00:00 AM EST [facility] HEPATIC FUNCTION PANEL <td>HEPATIC FUNCTION PANEL</td><td>Routine</td><td>07/26/2020</td><td></td><td> </td> 07/26/2020 12:00:00 AM EST [facility] BASIC METABOLIC PANEL CALCIUM TOTAL <td>BASIC METABOLI C PANEL</td><td>Routine</td><td>07/26/2020</td><td></td><td> </td> 07/26/2020 12:00:00 AM EST [facility] BLOOD COUNT COMPLETE AUTO&AUTO DIFRNTL WBC COUNT <td>C BC AND DIFFERENTIAL</td><td>Routine</td><td>06/16/2020</td><td></td><td> </td> 06/16/2020 12:00:00 AM EDT [facility] HEPATIC FUNCTION PANEL <td>HEPATIC FUNCTION PANEL</td><td>Routine</td><td>06/16/2020</td><td></td><td> </td> 06/16/2020 12:00:00 AM EDT [facility] BASIC METABOLIC PANEL CALCIUM TOTAL <td>BASIC METABOLI C PANEL</td><td>Routine</td><td>06/16/2020</td><td></td><td> </td> 06/16/2020 12:00:00 AM EDT [facility] Results ID Date Data Source [id number] 06/02/2021 11:22:00 AM EDT [facility] ([facility]) Name Value Range Interpretation Code Description Data Devi rce(s) Supporting Document(s) Laboratory test finding (navigational concept) Laboratory test r esult Normal (applies to non-numeric results) [facility] <content>FULL REPORT IN LAB [...] FOR ESBL</content>
<content></content> ID Date Data Source [id number] 05/30/2021 12:01:00 PM EDT [facility] ([facility]) Name Value Range Interpretation Code Description Data Devi rce(s) Supporting Document(s) Hemoglobin A1c/Hemoglobin.total in Blood 5.7 % 3.6-6.9 [facility] ([facility]) <content>Hgb A1c Interpretation:</conten t>
<content><5.8% - Non- diabetic</content>
<content>>6.5% - Diabetic</content>
<content><7.0% - ADA diabetic treatment goal</content>
<content></content> Thyrotropin [Units/volume] in Serum or Plasma 9.514 mIU/ml 0. 350-5.500 Above high normal [facility] ([facility]) not fasting Urate [Mass/volume] in Serum or Plasma 10.7 mg/dL 2.6-7.2 Above hi gh normal [facility] ([facility]) not fasting Venipuncture Laboratory test result [facility] ([facility]) not fasting Glucose mean value [Mass/volume] in Blood Estimated fr om glycated hemoglobin 117 mg[facility] The Estimated Average Glucose is a calcu lation of the average glucose over the last 120 days including non-fasting as well as fasting levels. Vitamin D+Metabolites [Mass/volume] in Serum or Plasma 23.68 ng/ mL 30-100 Below low normal [facility] ([facility]) <content>Recommended Levels for Circulat ing 25-hydroxy Vitamin D:</content>
<content>Vitamin D Status 25-OH Vitamin D Test Result</content>
<content>Deficient <10ng/mL</content>
<content>Insufficient 10- 29ng/mL</content>
<content>Sufficient 30-100ng/mL</content>
<content>Potential Intoxication >100ng/mL</content>
<content>A pediatric reference range has not been established using this method.</content>
<content></content> ID Date Data Source [id number] 05/30/2021 12:01:00 PM EDT [facility] ([facility]) Name Value Range Interpretation Code Description Data Devi rce(s) Supporting Document(s) Cholesterol [Mass/volume] in Serum or Plasma 154 mg/dL 0-200 [facility] ([facility]) Cholesterol in HDL [Mass/volume] in Serum or Plasma 68 mg/dL 40-60 Above high normal [facility] ([facility]) Triglyceride [Mass/volume] in Serum or Plasma 58 mg/dL 0-249 [facility] ([facility]) <content>National Cholesterol Education Program (NCEP) Guidelines:</content>
<content>Recommended Range <150 mg/dL</content>
<content></content> Cholesterol in LDL [Mass/volume] in Serum or Plasma by calcu lation 74 mg/dL 0-130 [facility] ([facility]) VLDL 12 mg/dL 0-28 [facility]) Cardiac Risk 2.26 Ratio 3.7-5.3 Below low normal [facility] ([facility]) ID Date Data Source [id number] 05/30/2021 12:01:00 PM EDT [facility] ([facility]) Name Value Range Interpretation Code Description Data Devi rce(s) Supporting Document(s) Urea nitrogen [Moles/volume] in Serum or Plasma 78 mg/dL 6-20 Record coming over is a correction and thus replaces a final result [facility] ([facility]) Results Confirmed by Repeat Analysis. Tried to call no answer [id number] lori Consistent with previous results [facility] and transmitted [id number] lori 05/30/2021 Glucose [Mass/volume] in Serum or Plasma 102 mg/dL 74-106 [facility] ([facility]) [employer] (ADA) Recommended Range is 65-99 mg/dL Sodium [Moles/volume] in Serum or Plasma 137 mmol/L 136-145 [facility] ([facility]) Potassium [Moles/volume] in Serum or Plasma 4.5 mmol/L 3.5-5.3 [facility] ([facility]) Creatinine [Mass/volume] in Serum or Plasma 4.6 mg/dL 0.5-1.3 Above high normal [facility] ([facility]) Carbon dioxide, total [Moles/volume] in Serum or Plasma 18 meq/L 20-31 Below low normal [facility] ([facility]) Chloride [Moles/volume] in Serum or Plasma 108 mmol/L 98-107 Above high normal [facility] ([facility]) eGFR-male 12 mL/m/1.73m [facility]) Anion Gap 11 mmol/L 7-16 [facility]) eGFR-Aa male 15 mL/m/1.73m [facility]) <content>Normal Kidney Function or Mild Disease GFR >59 mL/min/1.73m2</content>
<content>Chronic Kidney Disease GFR 15-59 mL/min/1.73m2</content>
<content>Renal Failure GFR <15 mL/min/1.73m2</content>
<content></content> Alkaline phosphatase [Enzymatic activity/volume] in Serum or Plasma 64 U/L 46-116 [facility] ([facility]) Alanine aminotransferase [Enzymatic activity/volume] in Seru m or Plasma 16 U/L 4-36 [facility] ([facility]) Effective 02/23/2017: [employer] has indicated interference with the drugs sulfasalazine and sulfapyridine. They suggest collection should occur prior to drug administration due to falsely depressed results. Aspartate aminotransferase [Enzymatic activity/volume] in Serum or Plasma 16 U/L 8-33 [facility]) Albumin [Mass/volume] in Serum or Plasma 3.6 g/dL 3.6-5.1 [facility] ([facility]) Bilirubin.total [Mass/volume] in Serum or Plasma 0.2 mg/dL 0.3-1.2 Below low normal [facility] ([facility]) Protein [Mass/volume] in Serum or Plasma 5.9 g/dL 6.4-8.3 Below low normal [facility] ([facility]) Results may reflect a potential interfer ence in Total Protein results in patients receiving dextran as blood volume expanders. Albumin/Globulin [Mass Ratio] in Serum or Plasma 1.6 Ratio 1.0-2.0 [facility] ([facility]) Globulin [Mass/volume] in Serum by calculation 2.3 g/dL 1.9-3.7 [facility] ([facility]) Calcium [Mass/volume] in Serum or Plasma 8.0 mg/dL 8.9-10.5 Below low normal [facility] ([facility]) ID Date Data Source [id number] 05/30/2021 12:01:00 PM EDT [facility] ([facility]) Name Value Range Interpretation Code Description Data Devi rce(s) Supporting Document(s) Cobalamin (Vitamin B12) [Mass/volume] in Serum or Plasma 8765 pg /mL 211-911 Above high normal [facility] ([facility]) Results Confirmed on Dilution. ID Date Data Source [id number] 05/30/2021 12:01:00 PM EDT [facility] ([facility]) Name Value Range Interpretation Code Description Data Devi rce(s) Supporting Document(s) WBC. 3.80 x10E3/uL 4.2-12.0 Below low normal [facility]) Erythrocytes [#/volume] in Blood by Automated count 2.64 x10E6/u L 4.4-6.0 Below low normal [facility] ([facility]) Hemoglobin [Mass/volume] in Blood 8.3 g/dL 13.8-18.0 Below low nor mal [facility] ([facility]) MCH 31.5 pg 27-33 [facility]) Hematocrit [Volume Fraction] of Blood by Automated count 26.9 % 39-52 Below low normal [facility] ([facility]) MCV 102.0 fL 80-98 Above high normal [facility] Platelets [#/volume] in Blood by Automated count 283 x10E3/uL 135-420 [facility] ([facility]) MCHC 30.9 g/dL 32-36 Below low normal [facility]) RDW 16.5 % 11.2-15.2 Above high normal [facility] % Indra 79.8 % 41.0-80.0 [facility]) %Lym 15.4 % 10.0-45.2 [facility]) MPV 8.9 fL 7.0-12.3 [facility]) Eosinophils [#/volume] in Blood by Automated count 1.0 % 0.0-8.0 [facility] ([facility]) %Callahan 3.6 % 2.0-13.0 [facility]) %Baso 0.2 % 0.0-3.0 [facility]) Callahan 0.1 x10E3/uL 0.0-1.0 [facility] Neut 3.0 x10E3/uL 2.0-8.1 [facility] ([facility]) Lymp 0.6 x10E3/uL 0.6-3.1 [facility] ([facility]) Baso 0.0 x10E3/uL 0.0-0.2 [facility] ([facility]) Eos 0.0 x10E3/uL 0.0-0.6 [facility] ([facility]) ID Date Data Source [id number] 05/24/2021 06:24:00 PM EDT [facility] ([facility]) Name Value Range Interpretation Code Description Data Devi rce(s) Supporting Document(s) Blood Urea Nitrogen 63 mg/dL 7-18 Above high normal [facility] ([facility]) Glucose, Fasting 89 mg/dL 70-100 Normal (applies to non-numeric results) [facility] ([facility]) Creatinine For GFR 3.87 mg/dL 0.70-1.30 Above high normal [facility] ([facility]) Glomerular Filtration Rate 15.7 Below low normal [facility] ([facility]) <content>Units are mL/min/1.73 m2</content>
<content></content>
<content>Chronic Kidney Disease Staging per NK[facility]:</content>
<content></content>
<content>Stage I & II GFR >=60 Normal to Mildly Decreased</content>
<content>Stage III GFR 30- 59 Moderately Decreased</content>
<content>Stage IV GFR 15-29 Severely Decreased</content>
<content>Stage V GFR <15 Very Little GFR Left</content>
<content>ESRD GFR <15 on [employer]</content>
<content></content> Potassium Serum 5.0 meq/L 3.5-5.1 Normal (applies to non-numeric results) [facility] ([facility]) Chloride Level 110 meq/L 98-107 Above high normal [facility] ([facility]) Sodium Level 139 meq/L 136-145 Normal (applies to non-numeric res ults) [facility] ([facility]) Anion Gap 10 meq/L 8-16 Normal (applies to non-numeric resul ts) [facility] ([facility]) Calcium Level 7.5 mg/dL 8.8-10.2 Below low normal [facility] ([facility]) Carbon Dioxide Level 19 meq/L 21-[address] [facility] ([facility]) Alt/SGPT 19 U/L 12-78 Normal (applies to non-numeric resul ts) [facility] ([facility]) Alkaline Phosphatase 74 U/L 45-117 Normal (applies to non-num jerrod results) [facility] ([facility]) Ast/Sgot 14 U/L 7-37 Normal (applies to non-numeric resul ts) [facility]) Albumin 2.2 GM/DL 3.2-5.[address] [facility] ([facility]) Total Protein 5.6 GM/DL 6.4-8.2 Below low normal [facility] ([facility]) Bilirubin,Total 0.3 mg/dL 0.2-1.0 Normal (applies to non-numeric results) [facility] ([facility]) Albumin/Globulin Ratio 0.6 Normal (applies to non-n umeric results) [facility]) ID Date Data Source [id number] 05/24/2021 06:24:[address] [facility] ([facility]) Name Value Range Interpretation Code Description Data Devi rce(s) Supporting Document(s) White Blood Count 7.0 10 4.0-10.0 Normal (applies to non-numeri c results) [facility]) Red Blood Count 2.56 10 4.30-6.10 Below low normal [facility] ([facility]) Hematocrit 25.1 % 42.0-52.0 Below low normal [facility] ([facility]) Hemoglobin 8.1 g/dL 13.5-17.5 Below low normal [facility] ( [facility]) Mean Corpuscular Hemoglobin 31.6 pg 27.0-33.0 Norm al (applies to non-numeric results) [facility] ([facility]) Mean Corpuscular HGB Conc 32.3 g/dL 32.0-36.5 Normal (applies to non-numeric results) [facility] ([facility]) Mean Corpuscular Volume 98.0 fl 80.0-96.0 Above high normal [facility] ([facility]) Neutrophils % 86.6 % 36.0-66.0 Above high normal [facility] ([facility]) Platelet Count, Automated 226 10 150-450 Normal (applies to non-numeric results) [facility] ([facility]) Red Cell Distribution Width 15.8 % 11.5-14.5 Above high normal [facility] ([facility]) Lymph % 7.1 % 24.0-44.0 Below low normal [facility]) Callahan % 4.7 % 2.0-8.0 Normal (applies to non-numeric resul ts) [facility] ([facility]) Eos % 0.7 % 0.0-3.0 Normal (applies to non-numeric resul ts) [facility] ([facility]) Immature Granulocyte % 0.6 % 0-3.0 Normal (applies to non-n umeric results) [facility] ([facility]) Baso % 0.3 % 0.0-1.0 Normal (applies to non-numeric resul ts) [facility] ([facility]) Nucleated Red Blood Cell % 0.0 % 0-0 Normal (applies to n on-numeric results) [facility] ([facility]) Lymph # 0.5 10 1.5-5.0 Below low normal [facility] ([facility]) Neutrophils # 6.1 10 1.5-8.5 Normal (applies to non-numeric re sults) [facility] ([facility]) Callahan # 0.3 10 0.0-0.8 Normal (applies to non-numeric resul ts) [facility] ([facility]) Eos # 0.1 10 0.0-0.5 Normal (applies to non-numeric resul ts) [facility] ([facility]) Baso # 0.0 10 0.0-0.2 Normal (applies to non-numeric resul ts) [facility] ([facility]) ID Date Data Source [id number] 05/11/2021 05:28:00 PM EDT [facility] Name Value Range Interpretation Code Description Data Devi rce(s) Supporting Document(s) SARS COVID ANTIGEN NEGATIVE [facility] This lab was ordered by [facility] a nd reported by [facility]. ID Date Data Source [id number] 05/11/2021 11:19:00 AM EDT [facility] Name Value Range Interpretation Code Description Data Devi rce(s) Supporting Document(s) SARS coronavirus 2 RNA [Presence] in Res piratory specimen by BEKA with probe detection NEGATIVE [facility] This lab was ordered by [facility] a nd reported by [facility]. ID Date Data Source [id number] 04/19/2021 04:35:00 PM EDT [facility] ([facility]) Name Value Range Interpretation Code Description Data Devi rce(s) Supporting Document(s) Urea nitrogen [Moles/volume] in Serum or Plasma 85 mg/dL 6-20 Record coming over is a correction and thus replaces a final result [facility] ([facility]) Results Confirmed by Repeat Analysis. Results faxed at 1053 04/20/21 kk Called to Lauren at 1053 04/20/21 kk Glucose [Mass/volume] in Serum or Plasma 94 mg/dL 74-106 [facility] ([facility]) [employer] (ADA) Recommended Range is 65-99 mg/dL Creatinine [Mass/volume] in Serum or Plasma 5.6 mg/dL 0.5- 1.3 Record coming over is a correction and thus replaces a final result [facility] ([facility]) Results Confirmed by Repeat Analysis. Results faxed at 1053 04/20/21 kk Called to Lauren at 1053 04/20/21 kk Potassium [Moles/volume] in Serum or Plasma 3.6 mmol/L 3.5-5.3 [facility] ([facility]) Sodium [Moles/volume] in Serum or Plasma 132 mmol/L 136-145 Below low normal [facility] ([facility]) Results Confirmed by Repeat Analysis. Carbon dioxide, total [Moles/volume] in Serum or Plasma 23 meq/L 20 -31 [facility] ([facility]) Anion Gap 13 mmol/L 7-16 [facility]) Chloride [Moles/volume] in Serum or Plasma 96 mmol/L 98-107 Belo w low normal [facility] ([facility]) Alkaline phosphatase [Enzymatic activity/volume] in Serum or Plasma 74 U/L 46-116 [facility] ([facility]) eGFR-male 10 mL/m/1.73m [facility]) eGFR-Aa male 12 mL/m/1.73m [facility] ([facility]) <content>Normal Kidney Function or Mild Disease GFR >59 mL/min/1.73m2</content>
<content>Chronic Kidney Disease GFR 15-59 mL/min/1.73m2</content>
<content>Renal Failure GFR <15 mL/min/1.73m2</content>
<content></content> Alanine aminotransferase [Enzymatic activity/volume] in Seru m or Plasma 19 U/L 4-36 [facility] ([facility]) Effective 02/23/2017: [employer] has indicated interference with the drugs sulfasalazine and sulfapyridine. They suggest collection should occur prior to drug administration due to falsely depressed results. Aspartate aminotransferase [Enzymatic activity/volume] in Serum or Plasma 26 U/L 8-33 [facility]) Bilirubin.total [Mass/volume] in Serum or Plasma 0.3 mg/dL 0.3-1.2 [facility] ([facility]) Protein [Mass/volume] in Serum or Plasma 5.4 g/dL 6.4-8.3 Below low normal [facility] ([facility]) Results may reflect a potential interfer ence in Total Protein results in patients receiving dextran as blood volume expanders. Albumin [Mass/volume] in Serum or Plasma 3.0 g/dL 3.6-5.1 Below low normal [facility] ([facility]) Globulin [Mass/volume] in Serum by calculation 2.4 g/dL 1.9-3.7 [facility] ([facility]) Albumin/Globulin [Mass Ratio] in Serum or Plasma 1.3 Ratio 1.0-2.0 [facility] ([facility]) Calcium [Mass/volume] in Serum or Plasma 7.8 mg/dL 8.9-10.5 Below low normal [facility] ([facility]) ID Date Data Source [id number] 04/19/2021 04:35:00 PM EDT [facility] ([facility]) Name Value Range Interpretation Code Description Data Devi rce(s) Supporting Document(s) Hemoglobin [Mass/volume] in Blood 11.0 g/dL 13.8-18.0 Below low nor mal [facility] ([facility]) WBC. 8.30 x10E3/uL 4.2-12.0 [facility]) Erythrocytes [#/volume] in Blood by Automated count 3.61 x10E6/u L 4.4-6.0 Below low normal [facility] ([facility]) 1+ Ovalocytes 2+ Anisocytosis 1+ Hypochromasia Hematocrit [Volume Fraction] of Blood by Automated count 34.8 % 39-52 Below low normal [facility] ([facility]) MCV 96.4 fL 80-98 [facility]) MCH 30.6 pg 27-33 [facility]) Platelets [#/volume] in Blood by Automated count 247 x10E3/uL 135-420 [facility] ([facility]) RDW 14.8 % 11.2-15.2 [facility] ([facility]) MCHC 31.7 g/dL 32-36 Below low normal [facility] ([facility]) MPV 8.1 fL 7.0-12.3 [facility] ([facility]) %Lym 4.6 % 10.0-45.2 Below low normal [facility] ([facility]) % Indra 93.0 % 41.0-80.0 Above high normal [facility]) %Callahan 2.1 % 2.0-13.0 [facility]) Eosinophils [#/volume] in Blood by Automated count 0.1 % 0.0-8.0 [facility] ([facility]) %Baso 0.1 % 0.0-3.0 [facility] ([facility]) Neut 7.7 x10E3/uL 2.0-8.1 [facility]) Callahan 0.2 x10E3/uL 0.0-1.0 [facility]) Lymp 0.4 x10E3/uL 0.6-3.1 Below low normal [facility] ([facility]) Baso 0.0 x10E3/uL 0.0-0.2 [facility]) Eos 0.0 x10E3/uL 0.0-0.6 [facility]) ID Date Data Source [id number] 04/19/2021 04:35:00 PM EDT [facility] ([facility]) Name Value Range Interpretation Code Description Data Devi rce(s) Supporting Document(s) Natriuretic peptide B [Mass/volume] in Serum or Plasma 1015.8 pg /mL 0-100 Above high normal [facility] ([facility]) ID Date Data Source [id number] 04/19/2021 04:35:00 PM EDT [facility] ([facility]) Name Value Range Interpretation Code Description Data Devi rce(s) Supporting Document(s) Band 0 % 3-5 Below low normal [facility] ([facility]) Segs 89 % 40-60 Above high normal [facility] ([facility]) Monos 2 % 6-12 Below low normal [facility] ([facility]) Lymph 8 % 21-45 Below low normal [facility] ([facility]) Eosinophils 0 % 1-5 Below low normal [facility] ([facility]) Basophils 0 % 1-3 Below low normal [facility] ([facility]) Atyp Lymph 1 % [facility] ID Date Data Source [id number] 04/19/2021 04:35:00 PM EDT [facility] ([facility]) Name Value Range Interpretation Code Description Data Devi rce(s) Supporting Document(s) Venipuncture Laboratory test result [facility] ([facility]) ID Date Data Source [id number] 04/04/2021 07:29:00 PM EDT [facility] ([facility]) Name Value Range Interpretation Code Description Data Devi rce(s) Supporting Document(s) Laboratory test finding (navigational concept) Laboratory test r esult Normal (applies to non-numeric results) [facility] ([facility]) Negative results do not preclude influen za or RSV virus infection and should not be used as the sole basis for treatment or other patient management decisions. Laboratory test finding (navigational concept) Laboratory test r esult Normal (applies to non-numeric results) [facility] ([facility]) Negative results do not preclude influen za or RSV virus infection and should not be used as the sole basis for treatment or other patient management decisions. Laboratory test finding (navigational concept) Laboratory test r esult Normal (applies to non-numeric results) [facility] ([facility]) Negative results do not preclude influen za or RSV virus infection and should not be used as the sole basis for treatment or other patient management decisions. Laboratory test finding (navigational concept) Laboratory test r esult Normal (applies to non-numeric results) [facility] ([facility]) A false negative result may occur if [...] pathogens. DISCLAIMER: Testing was performed using the [employer] SARS-CoV-2 test. This test was developed and its performance characteristics determined by [employer]. This test has not been FDA cleared [...] or revoked sooner. ID Date Data Source [id number] 04/04/2021 07:29:00 PM EDT [facility] Name Value Range Interpretation Code Description Data Devi rce(s) Supporting Document(s) SARS coronavirus 2 RNA [Presence] in Res piratory specimen by BEKA with probe detection NEGATIVE [facility] This lab was ordered by [facility] a nd reported by [facility]. ID Date Data Source [id number] 04/04/2021 05:11:00 PM EDT [facility] ([facility]) Name Value Range Interpretation Code Description Data Devi rce(s) Supporting Document(s) Magnesium [Mass/volume] in Serum or Plasma 1.5 mg/dL 1.8-2.4 Belo w low normal [facility] ([facility]) Natriuretic peptide.B prohormone N-Terminal [Mass/volu me] in Serum or Plasma 8105 pg/mL Above high normal [facility] ([facility]) Thyrotropin [Units/volume] in Serum or Plasma 3.550 uIU/ML 0. 358-3.740 Normal (applies to non-numeric results) [facility]) ID Date Data Source [id number] 04/04/2021 05:11:00 PM EDT [facility] ([facility]) Name Value Range Interpretation Code Description Data Devi rce(s) Supporting Document(s) Glucose, Fasting 95 mg/dL 70-100 Normal (applies to non-numeric results) [facility] ([facility]) Blood Urea Nitrogen 130 mg/dL 7-18 Above high normal [facility] ([facility]) Creatinine For GFR 8.50 mg/dL 0.70-1.30 Above upper panic limits [facility] ([facility]) Glomerular Filtration Rate 6.4 Below low normal [facility] ([facility]) <content>Units are mL/min/1.73 m2</content>
<content></content>
<content>Chronic Kidney Disease Staging per NKF:</content>
<content></content>
<content>Stage I & II GFR >=60 Normal to Mildly Decreased</content>
<content>Stage III GFR 30- 59 Moderately Decreased</content>
<content>Stage IV GFR 15-29 Severely Decreased</content>
<content>Stage V GFR <15 Very Little GFR Left</content>
<content>ESRD GFR <15 on FLEET DISPATCH MANAGER</content>
<content></content> Potassium Serum 4.5 meq/L 3.5-5.1 Normal (applies to non-numeric results) [facility] ([facility]) Sodium Level 135 meq/L 136-145 Below low normal [facility] ([facility]) Anion Gap 10 meq/L 8-16 Normal (applies to non-numeric resul ts) [facility] ([facility]) Carbon Dioxide Level 20 meq/L 21-32 Below low normal [facility] ([facility]) Chloride Level 105 meq/L 98-107 Normal (applies to non-numeric r esults) [facility] ([facility]) Calcium Level 8.3 mg/dL 8.8-10.2 Below low normal [facility] ([facility]) ID Date Data Source [id number] 04/04/2021 05:11:00 PM [facility]T [facility] Name Value Range Interpretation Code Description Data Devi rce(s) Supporting Document(s) Alt/SGPT 18 U/L 12-78 Normal (applies to non-numeric resul ts) [facility] ([facility]) Ast/Sgot 10 U/L 7-37 Normal (applies to non-numeric resul ts) [facility] ([facility]) Alkaline Phosphatase 100 U/L 45-117 Normal (applies to non-num jerrod results) [facility]) Bilirubin,Total 0.3 mg/dL 0.2-1.0 Normal (applies to non-numeric results) [facility] ([facility]) Bilirubin,Direct 0.1 mg/dL 0.0-0.2 Normal (applies to non-numeric results) [facility] ([facility]) Albumin 2.8 GM/DL 3.2-5.2 Below low normal [facility] Total Protein 6.0 GM/DL 6.4-8.2 Below low normal [facility] ([facility]) Albumin/Globulin Ratio 0.9 Normal (applies to non-n umeric results) [facility] ([facility]) ID Date Data Source [id number] 04/04/2021 05:11:00 PM EDT [facility] ([facility]) Name Value Range Interpretation Code Description Data Devi rce(s) Supporting Document(s) CPK Creatine Phosphokinase 95 U/L 39-308 Kailee l (applies to non-numeric results) [facility] ([facility]) CK-MB Value Mass 3.3 ng/mL Normal (applies to non-numeric results) [facility]) MB/CK Relative Index 3.47 Normal (applies to non-num jerrod results) [facility]) <content>DIAGNOSIS CRITERIA</content>
<content>MMB ng/ml Relative Index (RI)</content>
<content>NON-AMI < or = 5 N/A</content>
<content>WAL[place] ZONE > 5 < or = 4</content>
<content>AMI > 5 > 4</content>
<content></content> Troponin I 0.03 ng/mL Normal (applies to non-numeric resul ts) [facility]) <content>Troponin I Reference Interval f or [employer] [place] LOCI:</content>
<content></content>
<content>99th Percentile= 0.00-0.045 ng/ml</content>
<content></content>
<content>Risk Stratification:</content>
<content><= 0.10 ng/ml Decreased Risk for Adverse Clinical</content>
<content>Events.</content>
<content>0.10-1.50 ng/ml Increased Risk for Adverse Clinical</content>
<content>Events. Evaluation of additional</content>
<content>criterion and/or repeat testing in 2-6</content>
<content>hours is suggested to rule out myocardial</content>
<content>damage.</content>
<content>>= 1.50 ng/ml Indicative of Myocardial Injury.</content>
<content></content> ID Date Data Source [id number] 04/04/2021 05:11:00 PM EDT [facility] ([facility]) Name Value Range Interpretation Code Description Data Devi rce(s) Supporting Document(s) Red Blood Count 4.09 10 4.30-6.10 Below low normal [facility] ([facility]) White Blood Count 4.5 10 4.0-10.0 Normal (applies to non-numeri c results) [facility] ([facility]) Hemoglobin 12.3 g/dL 13.5-17.5 Below low normal [facility] ( [facility]) Mean Corpuscular Volume 91.4 fl 80.0-96.0 Normal ( applies to non-numeric results) [facility] ([facility]) Hematocrit 37.4 % 42.0-52.0 Below low normal [facility] ([facility]) Mean Corpuscular HGB Conc 32.9 g/dL 32.0-36.5 Normal (applies to non-numeric results) [facility] ([facility]) Mean Corpuscular Hemoglobin 30.1 pg 27.0-33.0 Norm al (applies to non-numeric results) [facility] ([facility]) Red Cell Distribution Width 14.7 % 11.5-14.5 Above high normal [facility] ([facility]) Neutrophils % 82.9 % 36.0-66.0 Above high normal [facility] ([facility]) Platelet Count, Automated 207 10 150-450 Normal (applies to non-numeric results) [facility] ([facility]) Lymph % 9.0 % 24.0-44.0 Below low normal [facility] ([facility]) Callahan % 7.9 % 2.0-8.0 Normal (applies to non-numeric resul ts) [facility] ([facility]) Baso % 0.0 % 0.0-1.0 Normal (applies to non-numeric resul ts) [facility] ([facility]) Immature Granulocyte % 0.2 % 0-3.0 Normal (applies to non-n umeric results) [facility] ([facility]) Eos % 0.0 % 0.0-3.0 Normal (applies to non-numeric resul ts) [facility] ([facility]) Neutrophils # 3.8 10 1.5-8.5 Normal (applies to non-numeric re sults) [facility] ([facility]) Nucleated Red Blood Cell % 0.0 % 0-0 Normal (applies to n on-numeric results) [facility] ([facility]) Callahan # 0.4 10 0.0-0.8 Normal (applies to non-numeric resul ts) [facility] ([facility]) Lymph # 0.4 10 1.5-5.0 Below low normal [facility] ([facility]) Eos # 0.0 10 0.0-0.5 Normal (applies to non-numeric resul ts) [facility] ([facility]) Baso # 0.0 10 0.0-0.2 Normal (applies to non-numeric resul ts) [facility] ([facility]) ID Date Data Source [id number] 01/10/2021 10:36:54 [facility] Name Date of Age Gend*PT [id number] Lilian Garner 1930 89 years M ---PT Location Admission Date/Time Visit ID Attending Provider --- --- --- --- EPI ID CSN Admitting Provider [id number] ---Addended by: DADA SULLIVAN on: 01/10/2021 10:36 AM Modules accepted: Level of Service Name Value Range Interpretation Code Description Data Devi rce(s) Supporting Document(s) ID Date Data Source [id number] 12/19/2020 02:04:00 PM EDT [facility] ([facility]) Name Value Range Interpretation Code Description Data Devi rce(s) Supporting Document(s) Venipuncture Laboratory test result [facility] ([facility]) not fasting ID Date Data Source [id number] 12/19/2020 02:04:00 PM EDT [facility] ([facility]) Name Value Range Interpretation Code Description Data Devi rce(s) Supporting Document(s) Cholesterol [Mass/volume] in Serum or Plasma 146 mg/dL 0-200 [facility] ([facility]) Cholesterol in LDL [Mass/volume] in Serum or Plasma by calcu lation 70 mg/dL 0-130 [facility] ([facility]) Cholesterol in HDL [Mass/volume] in Serum or Plasma 59 mg/dL 40-60 [facility] ([facility]) Triglyceride [Mass/volume] in Serum or Plasma 84 mg/dL 0-249 [facility] ([facility]) <content>National Cholesterol Education Program (NCEP) Guidelines:</content>
<content>Recommended Range <150 mg/dL</content>
<content></content> Cardiac Risk 2.47 Ratio 3.7-5.3 Below low normal [facility] ([facility]) VLDL 17 mg/dL 0-28 [facility]) ID Date Data Source [id number] 12/19/2020 02:04:00 PM EDT [facility] Name Value Range Interpretation Code Description Data Devi rce(s) Supporting Document(s) Glucose [Mass/volume] in Serum or Plasma 110 mg/dL 74-106 Above high normal [facility] ([facility]) [employer] Diabetes [employer] (ADA) Recommended Range is 65-99 mg/dL Urea nitrogen [Moles/volume] in Serum or Plasma 86 mg/dL 6-20 Record coming over is a correction and thus replaces a final result [facility] ([facility]) Results Confirmed by Repeat Analysis. Results faxed at 437 12/19/20 kk Called to Lauren at 437 12/19/20 kk Potassium [Moles/volume] in Serum or Plasma 4.8 mmol/L 3.5-5.3 [facility] ([facility]) Creatinine [Mass/volume] in Serum or Plasma 3.4 mg/dL 0.5-1.3 Above high normal [facility] ([facility]) Sodium [Moles/volume] in Serum or Plasma 138 mmol/L 136-145 [facility] ([facility]) Anion Gap 9 mmol/L 7-16 [facility]) Carbon dioxide, total [Moles/volume] in Serum or Plasma 26 meq/L 20 -31 [facility] ([facility]) Chloride [Moles/volume] in Serum or Plasma 103 mmol/L 98-107 [facility] ([facility]) eGFR-male 17 mL/m/1.73m [facility] eGFR-Aa male 21 mL/m/1.73m [facility]) <content>Normal Kidney Function or Mild Disease GFR >59 mL/min/1.73m2</content>
<content>Chronic Kidney Disease GFR 15-59 mL/min/1.73m2</content>
<content>Renal Failure GFR <15 mL/min/1.73m2</content>
<content></content> Alkaline phosphatase [Enzymatic activity/volume] in Serum or Plasma 81 U/L 46-116 [facility] ([facility]) Bilirubin.total [Mass/volume] in Serum or Plasma 0.4 mg/dL 0.3-1.2 [facility] ([facility]) Alanine aminotransferase [Enzymatic activity/volume] in Seru m or Plasma 18 U/L 4-36 [facility] ([facility]) Effective 02/23/2017: [employer] has indicated interference with the drugs sulfasalazine and sulfapyridine. They suggest collection should occur prior to drug administration due to falsely depressed results. Aspartate aminotransferase [Enzymatic activity/volume] in Serum or Plasma 27 U/L 8-33 [facility] Albumin/Globulin [Mass Ratio] in Serum or Plasma 2.1 Ratio 1.0-2.0 Above high normal [facility] ([facility]) Albumin [Mass/volume] in Serum or Plasma 4.5 g/dL 3.6-5.1 [facility] ([facility]) Protein [Mass/volume] in Serum or Plasma 6.6 g/dL 6.4-8.3 [facility] ([facility]) Results may reflect a potential interfer ence in Total Protein results in patients receiving dextran as blood volume expanders. Globulin [Mass/volume] in Serum by calculation 2.1 g/dL 1.9-3.7 [facility] ([facility]) Calcium [Mass/volume] in Serum or Plasma 9.0 mg/dL 8.9-10.5 [facility] ([facility]) ID Date Data Source [id number] 12/19/2020 02:04:00 PM EDT [facility] ([facility]) Name Value Range Interpretation Code Description Data Devi rce(s) Supporting Document(s) Cobalamin (Vitamin B12) [Mass/volume] in Serum or Plasma 5251 pg /mL 211-911 Above high normal [facility] ([facility]) Results Confirmed on Dilution. ID Date Data Source [id number] 12/19/2020 02:04:00 PM EDT [facility] ([facility]) Name Value Range Interpretation Code Description Data Devi rce(s) Supporting Document(s) Iron [Mass/volume] in Serum or Plasma 77 ug/dL 50-175 [facility] ([facility]) not fasting Iron binding capacity [Mass/volume] in Serum or Plasma 379 ug/dL 250 -450 [facility] ([facility]) not fasting % Saturation 20 % 13-48 [facility] ([facility] not fasting Ferritin [Mass/volume] in Serum or Plasma 19 ng/mL 22.0-322.0 Below low normal [facility] ([facility]) not fasting ID Date Data Source [id number] 12/19/2020 02:04:00 PM EDT [facility] ([facility]) Name Value Range Interpretation Code Description Data Devi rce(s) Supporting Document(s) Hemoglobin [Mass/volume] in Blood 12.1 g/dL 13.8-18.0 Below low nor mal [facility] ([facility]) WBC. 5.30 x10E3/uL 4.2-12.0 [facility] Erythrocytes [#/volume] in Blood by Automated count 3.94 x10E6/u L 4.4-6.0 Below low normal [facility] ([facility]) MCV 98.0 fL 80-98 [facility]) MCH 30.7 pg 27-33 [facility]) Hematocrit [Volume Fraction] of Blood by Automated count 38.7 % 39-52 Below low normal [facility] ([facility]) RDW 13.7 % 11.2-15.2 [facility] ([facility]) MCHC 31.3 g/dL 32-36 Below low normal [facility] ([facility]) Platelets [#/volume] in Blood by Automated count 162 x10E3/uL 135-420 [facility] ([facility]) MPV 9.0 fL 7.0-12.3 [facility] ([facility]) % Indra 73.6 % 41.0-80.0 [facility] ([facility]) %Lym 19.7 % 10.0-45.2 [facility] ([facility]) Eosinophils [#/volume] in Blood by Automated count 2.1 % 0.0-8.0 [facility] ([facility]) %Baso 0.4 % 0.0-3.0 [facility] ([facility]) %Callahan 4.2 % 2.0-13.0 [facility] ([facility]) Lymp 1.0 x10E3/uL 0.6-3.1 [facility]) Callahan 0.2 x10E3/uL 0.0-1.0 [facility] Neut 3.9 x10E3/uL 2.0-8.1 [facility] Baso 0.0 x10E3/uL 0.0-0.2 [facility] Eos 0.1 x10E3/uL 0.0-0.6 [facility]) ID Date Data Source [id number] 10/30/2020 11:39:00 AM EST [facility] ([facility]) Name Value Range Interpretation Code Description Data Devi rce(s) Supporting Document(s) Thyroxine (T4) free [Mass/volume] in Serum or Plasma by Dialysis 0.90 ng/dL Normal (applies to non-numeric results) [facility] ([facility]) This test was developed and its performa nce characteristics determined by [facility]. It has not been cleared or approved by the Food and Drug Administration. Reference Range: Pubertal Children and Adults: 0.8 - 1.7 Performed at: [facility] [address] [place] [id number] Load Test Mechanic: Dmitriy Swenson MD, Phone: [phone] Thyrotropin [Units/volume] in Serum or Plasma 8.360 uIU/ML 0. 358-3.740 Above high normal [facility] ([facility]) ID Date Data Source [id number] 10/30/2020 11:39:00 AM EST [facility] ([facility]) Name Value Range Interpretation Code Description Data Devi rce(s) Supporting Document(s) Glucose, Fasting 91 mg/dL 70-100 Normal (applies to non-numeric results) [facility] ([facility]) Blood Urea Nitrogen 71 mg/dL 7-18 Above high normal [facility] ([facility]) Creatinine For GFR 3.47 mg/dL 0.70-1.30 Above high normal [facility] ([facility]) Glomerular Filtration Rate 17.9 Below low normal [facility] ([facility]) <content>Units are mL/min/1.73 m2</content>
<content></content>
<content>Chronic Kidney Disease Staging per NKF:</content>
<content></content>
<content>Stage I & II GFR >=60 Normal to Mildly Decreased</content>
<content>Stage III GFR 30- 59 Moderately Decreased</content>
<content>Stage IV GFR 15-29 Severely Decreased</content>
<content>Stage V GFR <15 Very Little GFR Left</content>
<content>ESRD GFR <15 on FLEET DISPATCH MANAGER</content>
<content></content> Sodium Level 140 meq/L 136-145 Normal (applies to non-numeric res ults) [facility] ([facility]) Chloride Level 107 meq/L 98-107 Normal (applies to non-numeric r esults) [facility] ([facility]) Potassium Serum 5.3 meq/L 3.5-5.1 Above high normal [facility] ([facility]) Carbon Dioxide Level 28 meq/L 21-32 Normal (applies to non-num jerrod results) [facility] ([facility]) Anion Gap 5 meq/L 8-16 Below low normal [facility] Calcium Level 8.5 mg/dL 8.8-10.2 Below low normal [facility] ([facility]) ID Date Data Source [id number] 10/30/2020 11:39:00 AM EST [facility] ([facility]) Name Value Range Interpretation Code Description Data Devi rce(s) Supporting Document(s) White Blood Count 3.4 10 4.0-10.0 Below low normal M [facility] ([facility]) Red Blood Count 2.97 10 4.30-6.10 Below low normal [facility] ([facility]) Hemoglobin 9.2 g/dL 13.5-17.5 Below low normal [facility] ( [facility]) Hematocrit 30.4 % 42.0-52.0 Below low normal [facility] ([facility]) Mean Corpuscular Hemoglobin 31.0 pg 27.0-33.0 Norm al (applies to non-numeric results) [facility] ([facility]) Mean Corpuscular Volume 102.4 fl 80.0-96.0 Above high normal [facility] ([facility]) Mean Corpuscular HGB Conc 30.3 g/dL 32.0-36.5 Below low normal [facility] ([facility]) Red Cell Distribution Width 13.7 % 11.5-14.5 Norm al (applies to non-numeric results) [facility] ([facility]) Nucleated Red Blood Cell % 0.0 % 0-0 Normal (applies to n on-numeric results) [facility] ([facility]) Platelet Count, Automated 163 10 150-450 Normal (applies to non-numeric results) [facility] ([facility]) ID Date Data Source [id number] 10/28/2020 03:30:30 PM EST [facility] Name Value Range Interpretation Code Description Data Devi rce(s) Supporting Document(s) &PDF [facility] JXIGKk3gTqSXZnPt51/FUHpcWFPre2SdOHqsAYs9AKwvFGOcT4LulCylDW7IB1BJLTmESMyCQB3wEBHe oRX [file] Y4vQTxTj5QZGx1FoIZLyAzPX6SRLb= ID Date Data Source [id number] 10/13/2020 11:11:53 PM EST [facility] Name Value Range Interpretation Code Description Data Devi rce(s) Supporting Document(s) Discharge Summary [facility] [employer] HNEJOi4wRrHEOiKl29/YSOjwKVQtm7AkBXnfFYf9FRgbLKMqX7CrTXU6pH4eUXC6CFtRChHgXpPfAvS3 lbm [file] ICAgICAgICAgICAgICAgICAgICAgICAgICAgICAgICAgICAgICAgICAgICAgICAgICAgICAgICAgICAg ICAgICAgICAgICAgICAgICAgICAgICAgICAgICAgICAgICANCiAgICAgICAgICAgICAgICAgICAgICAg ICAgICAgICAgICAgICAgICAgICAgICAgICAgICAgIC AgICAgICAgICAgICAgICAgICAgICAgICAgICAgICAgICAgICAgICAgICAgICANCiAgICAgICAgICAgIC AgICAgICAgICAgICAgICAgICAgICAgICAgICAgICAgICAgICAgICAgICAgICAgICAgICAgICAgICAgIC AgICAgICAgICAgICAgICAgICAgICAgICAgICANCiAg ICAgICAgICAgICAgICAgICAgICAgICAgICAgICAgICAgICAgICAgICAgICAgICAgICAgICAgICAgICAg ICAgICAgICAgICAgICAgICAgICAgICAgICAgICAgICAgICAgICANCiAgICAgICAgICAgICAgICAgICAg ICAgICAgICAgICAgICAgICAgICAgICAgICAgICAgIC AgICAgICAgICAgICAgICAgICAgICAgICAgICAgICAgICAgICAgICAgICAgICAgICANCiAgICAgICAgIC AgICAgICAgICAgICAgICAgICAgICAgICAgICAgICAgICAgICAgICAgICAgICAgICAgICAgICAgICAgIC AgICAgICAgICAgICAgICAgICAgICAgICAgICAgICAN CiAgICAgICAgICAgICAgICAgICAgICAgICAgICAgICAgICAgICAgICAgICAgICAgICAgICAgICAgICAg ICAgICAgICAgICAgICAgICAgICAgICAgICAgICAgICAgICAgICAgICANCiAgICAgICAgICAgICAgICAg ICAgICAgICAgICAgICAgICAgICAgICAgICAgICAgIC AgICAgICAgICAgICAgICAgICAgICAgICAgICAgICAgICAgICAgICAgICAgICAgICAgICANCiAgICAgIC AgICAgICAgICAgICAgICAgICAgICAgICAgICAgICAgICAgICAgICAgICAgICAgICAgICAgICAgICAgIC AgICAgICAgICAgICAgICAgICAgICAgICAgICAgICAg ICANCiAgICAgICAgICAgICAgICAgICAgICAgICAgICAgICAgICAgICAgICAgICAgICAgICAgICAgICAg ICAgICAgICAgICAgICAgICAgICAgICAgICAgICAgICAgICAgICAgICAgICANCjw/jYNkP5sauSTquzV1 M3eqGg4SQk2IHF2oy3GlYTTtCAbkdvDuWgsPYpHtMT NyRlbRTwd7TMdjKM3JaVViG3MzD6MkNOklVO3SHUFlNGTnmBToXORwSYJtSfG1VSQiRZwlTS1NnRUmLW naPTRmSKBpZbMeQCUaWPExHTZiMTXoXEARVX1CFtFfM8UkgV26HTLUXd5+DQplbmRvYmoNCjMxIDAgb2 AqVKh8VU9SKHVrYhjng7PqMcZiNCDOWEfyLB0KFKM6 WJXtUAYtMt6OUBXoB083qbOlAA5MUt1CHwVlWX7uwg4WXhEtABSnGdoNYtz0TZocFP9DdALjQCbKhZUe cUBvX3EzD4DhfFFwpGBxkQQOJBArvXHALYV2eDlvmqvmCLXqRXLjOl3vYrBxJcClEJK1GPCqVE8lVUwi NV7SOXR0MMfxKTLhOAGnT4iWDrLfCCGkObUdfVdnVH 0QUcEgK7RzwlNiuEMsPRXsJKCETv8+GOiqddAwVvfAEmSdOBPmp1WdFHc6BC7JREIsDDlwXJ4NVSZzbA 9kKRkrQS2DRsEyEDQyKTCZGdPcM66idDIwZHe2Q4IrSpVpTNHsMjonTZFbCRosFqQwLBSbHlHdTYryDC 4+ID4+STqgVR1XVOvaadQzDVBwYn2ZESMiFEZbIT9y IKZxBGZeH3U0nFxaJYBSXcDcN7icxqioNM8pQNEiS569cWomsnQdGHWrXPUfTh9WLHCgRPW6RHHzvYJh WfKdMKRCFXokMI6ToSRuYQP3yA1uZWhiPGPvAHBqW8hJKqHqoAkjPF80aUloxcUqvJDrITc+Ye2IZN0z o5GpEHt1xbCbEQgiFFZ2GQhcHSPiGVHrSQAeEMB7UC R8TMXITfYgYKLyWUFxIYeuYOVyWJLtfj9HZSNlMUZdXVW6HBEhRPIwPHLkBKtaOQAfEHF0TuG0WHVcUO IdBU6WSsCuUAExPGOmSLcaHNLqUZFdma1NCHNePAWoTBW6GhMdTIMbPAQsMImwPGAdFHC4MgpnDKKdVH EdGD9TUbToYNFcDCq3HRGkIIHbWPSyzw0YIPDqCPIb YULvAWXbGCJyLRWnQHouTKOeWQHbPZQuXLVdDRVmCQ7VMdMaFUFsDWB6SMNkMJPuYZEykg4YTNMaPMVv RfE4ZRZqJSAcYRMeMFqrPRQrBFMqUaq1BZWyWBKbPA8VItJxHYJnYUPhCsqmAULoLWPicx5QSFKcYGIs MWGvJUUcVNPvYLVmSZztVVBtRFF1YnP1ZDBaSDObAD 0NRsClQYMvZDL7DmGfFIKaTMZvzg3USZQuGZThODf4SHNvWZTjUNIiSDhaYZBiTZZ7GKH1SRDeDTKkKR 3CBvNtNLOkPNF4HnRoLQCxBEKnum7JULIfFTQqOuXdYjKiRZRfNZAeWOliHEUlQEA2SsP7CHOxBZVvNH 9HEoUcIDQsNNemJuOdCRRgHMSpft7MSZDrMNKgZUU0 RZEyNGZoYOMyLRewBUPhIXS0WuQhJUPgRVJcIX9KPyZwUDKaUqE6QSOtVYDmDEErhp6LQKPiYRWyAglc RLCbJHXfTUPrDGzvCCJkNPD8GXV2FUTrWLQlEB5EUvSsSVByWjBoMGUaDNLiEOJneg4ITATgADFfYJSj EjLxZXRlNZMxQRtcWDNrHIG4YBP7DEQmQCNeHA9FAc TbOLPeArCiVfCaBIThKGQogw6MQRXsPRDhQrK3JGPpJKFpCZNxRMuiHRQeCZC5ZLZ1ORDzIYOhLC5LRq HkXKmrITIGWrm7APcoI0e8WRKmKG6ZH6Shg3IhMzHxNQGKHSnbGV5sozAuYYCvLd2VL8hGEbmtUiDrJC TxPCNqWBF0DwBmJPw4VoI9WzH3EJVgZnVmRb1eZSQo FaRqXEK1CZT5NTPsOXUxVMZlPNwxDMQ8X5SySbUnUwAkZD5BGz4PDqJ2WWQ5bTJhKg8KFpZ6TYnHOdIg YA8RZSp= ID Date Data Source [id number] 10/09/2020 09:31:00 AM EST [facility] ([facility]) Name Value Range Interpretation Code Description Data Devi rce(s) Supporting Document(s) Red Blood Count 2.81 10 4.30-6.10 Below low normal [facility] ([facility]) White Blood Count 6.5 10 4.0-10.0 Normal (applies to non-numeri c results) [facility] ([facility]) Hemoglobin 8.8 g/dL 13.5-17.5 Below low normal [facility] ( [facility]) Hematocrit 28.2 % 42.0-52.0 Below low normal [facility] ([facility]) Mean Corpuscular Hemoglobin 31.3 pg 27.0-33.0 Norm al (applies to non-numeric results) [facility] ([facility]) Mean Corpuscular Volume 100.4 fl 80.0-96.0 Above high normal [facility] ([facility]) Mean Corpuscular HGB Conc 31.2 g/dL 32.0-36.5 Below low normal [facility] ([facility]) Red Cell Distribution Width 14.6 % 11.5-14.5 Above high normal [facility] ([facility]) Platelet Count, Automated 233 10 150-450 Normal (applies to non-numeric results) [facility] ([facility]) Lymph % 12.6 % 24.0-44.0 Below low normal [facility] ([facility]) Neutrophils % 79.3 % 36.0-66.0 Above high normal MEDE NT ([facility]) Baso % 0.3 % 0.0-1.0 Normal (applies to non-numeric resul ts) [facility] ([facility]) Eos % 3.6 % 0.0-3.0 Above high normal [facility] ([facility]) Callahan % 3.9 % 2.0-8.0 Normal (applies to non-numeric resul ts) [facility] ([facility]) Nucleated Red Blood Cell % 0.0 % 0-0 Normal (applies to n on-numeric results) [facility] ([facility]) Immature Granulocyte % 0.3 % 0-3.0 Normal (applies to non-n umeric results) [facility] ([facility]) Neutrophils # 5.1 10 1.5-8.5 Normal (applies to non-numeric re sults) [facility] ([facility]) Lymph # 0.8 10 1.5-5.0 Below low normal [facility] ([facility]) Callahan # 0.3 10 0.0-0.8 Normal (applies to non-numeric resul ts) [facility] ([facility]) Eos # 0.2 10 0.0-0.5 Normal (applies to non-numeric resul ts) [facility] ([facility]) Baso # 0.0 10 0.0-0.2 Normal (applies to non-numeric resul ts) [facility] ([facility]) ID Date Data Source [id number] 10/09/2020 09:31:[address] [facility] ([facility]) Name Value Range Interpretation Code Description Data Devi rce(s) Supporting Document(s) Natriuretic peptide.B prohormone N-Terminal [Mass/volu me] in Serum or Plasma 43381 pg/mL Above high normal [facility] ([facility]) ID Date Data Source [id number] 10/09/2020 09:31:[address] [facility] ([facility]) Name Value Range Interpretation Code Description Data Devi rce(s) Supporting Document(s) Glucose, Fasting 97 mg/dL 70-100 Normal (applies to non-numeric results) [facility] ([facility]) Creatinine For GFR 3.95 mg/dL 0.70-1.[address] [facility] ([facility]) Blood Urea Nitrogen 65 mg/dL 7-18 Above high normal [facility]) Sodium Level 141 meq/L 136-145 Normal (applies to non-numeric res ults) [facility]) Glomerular Filtration Rate 15.[address] [facility] ([facility]) <content>Units are mL/min/1.73 m2</content>
<content></content>
<content>Chronic Kidney Disease Staging per NKF:</content>
<content></content>
<content>Stage I & II GFR >=60 Normal to Mildly Decreased</content>
<content>Stage III GFR 30- 59 Moderately Decreased</content>
<content>Stage IV GFR 15-29 Severely Decreased</content>
<content>Stage V GFR <15 Very Little GFR Left</content>
<content>ESRD GFR <15 on FLEET DISPATCH MANAGER</content>
<content></content> Carbon Dioxide Level 27 meq/L 21-32 Normal (applies to non-num jerrod results) [facility]) Potassium Serum 4.7 meq/L 3.5-5.1 Normal (applies to non-numeric results) [facility] ([facility]) Chloride Level 106 meq/L 98-107 Normal (applies to non-numeric r esults) [facility] ([facility]) Calcium Level 7.6 mg/dL 8.8-10.2 Below low normal [facility] ([facility]) Anion Gap 8 meq/L 8-16 Normal (applies to non-numeric resul ts) [facility] ([facility]) Alt/SGPT 18 U/L 12-78 Normal (applies to non-numeric resul ts) [facility] ([facility]) Ast/Sgot 13 U/L 7-37 Normal (applies to non-numeric resul ts) [facility] ([facility]) Bilirubin,Total 0.4 mg/dL 0.2-1.0 Normal (applies to non-numeric results) [facility] ([facility]) Total Protein 5.6 GM/DL 6.4-8.2 Below low normal [facility] ([facility]) Alkaline Phosphatase 71 U/L 45-117 Normal (applies to non-num jerrod results) [facility] ([facility]) Albumin 2.7 GM/DL 3.2-5.2 Below low normal [facility] ([facility]) Albumin/Globulin Ratio 0.9 Normal (applies to non-n umeric results) [facility] ([facility]) ID Date Data Source [id number] 09/29/2020 09:18:03 AM [facility] Name Value Range Interpretation Code Description Data Devi rce(s) Supporting Document(s) History and Physical Health system JOVBWs7fToOCTuKi09/VBIwbPAGbz5InOAmlRMp4ZTgrYVMjD3FkLHX9wI6kPAC0ZNpQYeDaKoTtGgQ7 lbm IuWnbDAbYxBTHhUsyMAxLnLGbhDswnpIDdJT2AiGO0JEHaF62iZGYyCOXoG1PgOTI6YLX+My5EXVRepF KjID5MNvoO7A8mu7bO8HjM/fqNpy6DZKS4t+xNXNVRgs5JqB4m8aFm+oYzV9wJxI791Stf++o8Z06rKD TG0lI+z0qFSDoPSHW4XMnbFEUQaF9+Q8mw0ZtmaW/r b4ORWkoIz/xTyK6rEF5i8tSuGM1ECvSL4TGklw+/ygW7dtn91HpXRCogh3eUXcqYfmR1AAvVrsjX9ce3 jb3gNSnMmv/Ytott2Bg2ETPEU0M20uoOtpIrtNrm8i4ILLfWOPptK2ZRKNBcgqWuj+ZAR6HNW6GI2Ohc 11QYUQ4JByai/KnT1AHwTho8KuWRTckodO8WbBbdew CtBWHE2u9yQQcDIyFO4a5ucPthrlw8oaKplRWapeQQiyyb5BOI70g70cpYdmRfxnC53zbGoSJ1lH7lWC M4KsJV5gDKA3rJH3MLBlxwqNaeh+cnZmT1+N6n/+SdwwIzCSortMUy73HSUFpCAFZi0+f8W2Wy5INKGg K3bTABP6QuxsoezZ5qopRAPdc2J5jk9TzSXR94Elig rLsLB87a8Ar7N5NPfNN1oWPqL27z2LNVaD+L6RfLCv4N4JHlCC2TVWb2+adAIAPEABCV3cUuJ4ywUCu/ KaoDh5jZ9JsUHkoIUTBpD3UfMiK1paWAyqn50Hg8uwu3ZLBoBA2Dq+JOlMEb6u9p33r9PClGjq77xwsb SOH6M5wjUHeTJqfyWqt7T5e13aA3xH4yqa4ZD8vwWz 6AcVJCi/MlFA1lW9PJgC8Nx0L5WdzCV537huo1BzzTg2+Pardo/JEKNx0f9PdHpkWoxu4znExrOQoxxbjIi 5tFmLqB7x+HcDMlcAo2JawJI3toMq3aJs7zshWHC7akV9/fXwo/o0iGymAp4FhLVfPgxZXAWgdNRXUuH M2UcpiesqvJ1rKfVMGLcihklyz6r/hRbQITSGiTxCc 83ItYr51DxcCPLXZMs2LhTZWR4cxbP3UfrVzg+uccUFQuyWWrA9LAuIIDbYDVqzpmUzPiFwuydZSrmmd 3f1Y06W+d6q3N9Hu9A+f5B8n+STub3Jyy/fxfh0OcqPtBXZMGEXjFe6y1jL+gOR4oM5Nd5+iyFVG4rX6 A52eZrSsxd5t31GW6UNRJB+AMpbgelPZSuQRRy9pUa ecmqIDGTdEjq/kBOcG6ml7mx7mQ1sjQbuxlihptWFYbB9UGHF0EZvlA7uoUIYVrPsXOAovhyWAYgh2Ke b86NrjZj0irtpQImzN/MFqJ8sIDZEIvV7gdLIXlB10k98b8o6p+oLxp8+PtaZrGh97rutnXuVTXu/eep 8t9nrgLfyyVfyxe7AtpmnvbTmk2F+K0evOe7Rm7nQz IRMA/cGqswpy5ZyIgNrstqMtgB+kLGhRIvuhG7JoVxR9RrlDCYvOHlgf9Zhfj27UWDHL4F+dcSr7xWrTlm [file] H0VzuTGbGiZF7AJCh= ID Date Data Source [id number] 09/28/2020 11:48:44 AM [facility] Name Value Range Interpretation Code Description Data Devi rce(s) Supporting Document(s) Glucose [Mass/volume] in Capillary blood by Glucometer 132 mg/dL 70- 140 [facility] ID Date Data Source [id number] 09/28/2020 09:34:20 AM EST [facility] Name Value Range Interpretation Code Description Data Devi rce(s) Supporting Document(s) [facility] AYEXVz3jUyUCErXw99/PFShxHZCmv2UfSFsbHMt8PWaiUAPsH3BbZIY4tW7oUIA5DYoEChYfGpZzLpIl [facility] [file] [id number]== ID Date Data Source [id number] 09/28/2020 09:25:06 AM [facility] Name Value Range Interpretation Code Description Data Devi rce(s) Supporting Document(s) Glucose [Mass/volume] in Capillary blood by Glucometer 86 mg/dL 70- 140 [facility] ID Date Data Source [id number] 09/28/2020 07:48:16 AM [facility] Name Value Range Interpretation Code Description Data Devi rce(s) Supporting Document(s) [facility] NMFKKz5xTpKXXsWlk7BaQsYaWKIeCR0cpir3G6E8mTXqE8LxwXObn6btH9DvY9MnSTQgDVSYGF1LwEVi jb2 [file] [facility]+W+3yw1rACsCtMOuQjZw3bjywcRGQOoT9QeozYw9 [file] PJ/F1I6a3Q5v1Tvofm3/TL4IyXg+dYyqU/T+container washer machine/5HKzc+KkVLrIj2lePkvWQ8jHk3O+vXrmh0DLxdlR [file] I95qgU0BneaLlA+39vHWpyWgLCIhApdaOc3nqfFlXLgHU3pP+[place] [place] [place]+mCGflEP8QWQYaBnDRvC [file] MCBSCgo+FbnufKDsvNjhYQXKWmX1YPGSTEFCX4M= ID Date Data Source [id number] 09/28/2020 06:13:06 AM EST [facility] Name Value Range Interpretation Code Description Data Devi rce(s) Supporting Document(s) Leukocytes [#/volume] in Blood by Automated count 3.7 10*3/uL 4-10 L [facility] Erythrocytes [#/volume] in Blood by Automated count 2.71 10*6/uL 4.6- 6.1 L [facility] Hemoglobin [Mass/volume] in Blood 8.5 g/dL 13.5-18 L [facility] Hematocrit [Volume Fraction] of Blood by Automated count 25.4 % 4 1-53 L [facility] Erythrocyte mean corpuscular volume [Entitic volume] by Auto mated count 93.9 fL 80-96 [facility] Erythrocyte mean corpuscular hemoglobin [Entitic mass] by Automated count 31.2 pg 27-33 [facility] Erythrocyte mean corpuscular hemoglobin concentration [Mass/volume] by Automated count 33.2 g/dL 32.0-36.0 [facility] width [Ratio] by Automated count 15.6 % 11.5-14.5 H [facility] Platelets [#/volume] in Blood by Automated count 126 10*3/uL 150-400 L [facility] ID Date Data Source [id number] 09/28/2020 06:25:11 AM [facility] Name Value Range Interpretation Code Description Data Devi rce(s) Supporting Document(s) Bicarbonate [Moles/volume] in Serum 23 mmol/L 22-29 [facility] Chloride [Moles/volume] in Serum or Plasma 103 mmol/L 98-107 [facility] Creatinine [Mass/volume] in Serum or Plasma 3.02 mg/dL 0.70-1.20 H [facility] Glucose [Mass/volume] in Serum or Plasma 96 mg/dL 70-140 [facility] Potassium [Moles/volume] in Serum or Plasma 4.5 mmol/L 3.4-5.1 [facility] Sodium [Moles/volume] in Serum or Plasma 133 mmol/L 136-145 L [facility] Urea nitrogen [Mass/volume] in Serum or Plasma 45 mg/dL 8-23 H [facility] Anion gap 3 in Serum or Plasma 7 mmol/L 8-15 L [facility] Osmolality of Serum or Plasma by calculation 287 mosm/kg 275-300 [facility] Creatinine/Urea nitrogen [Mass Ratio] in Serum or Plasma 15 [facility] Calcium [Mass/volume] in Serum or Plasma 7.6 mg/dL 8.8-10.2 L [facility] Glomerular filtration rate/1.73 sq M pre dicted among non-blacks [Volume Rate/Area] in Serum or Plasma by Creatinine-based formula (MDRD) >6 0 [facility] Glomerular filtration rate/1.73 sq M pre dicted among blacks [Volume Rate/Area] in Serum or Plasma by Creatinine-based formula (MDRD) >60 [facility] ID Date Data Source [id number] 09/28/2020 06:25:11 AM [facility] Name Value Range Interpretation Code Description Data Devi rce(s) Supporting Document(s) Magnesium [Mass/volume] in Serum or Plasma 1.5 mg/dL 1.6-2.4 L [facility] ID Date Data Source [id number] 09/28/2020 06:25:11 AM [facility] Name Value Range Interpretation Code Description Data Devi rce(s) Supporting Document(s) Phosphate [Mass/volume] in Serum or Plasma 4.3 mg/dL 2.5-4.5 [facility] ID Date Data Source [id number] 09/27/2020 11:02:43 PM [facility] XR CHEST FRONTAL ONLY [id number] RESULTI nterpreted by:SOLE JamesROCEDURE INFORMATION: Exam: XR Chest, 1 View Exam date and time: 09/27/2020 10:46 PM Age: 89 years old Clinical indication: Atrioventricular block, complete; Other: Chest pain, evaluate for pacemaker lead placement TECHNIQUE: Imaging protocol: XR of the chest Views: 1 view. COMPARISON: CR XR CHEST FRONTAL ONLY [id number] PORTABLE 09/26/2020 2:47 PM FINDINGS: Tubes, catheters [...] rce(s) Supporting Document(s) ID Date Data Source [id number] 09/27/2020 09:56:23 PM [facility] Value Range Interpretation Code Description Data Devi rce(s) Supporting Document(s) Glucose [Mass/volume] in Capillary blood by Glucometer 141 mg/dL 70- 140 [facility] ID Date Data Source [id number] 09/27/2020 09:25:35 PM [facility] Value Range Interpretation Code Description Data Devi rce(s) Supporting Document(s) Troponin T.cardiac [Mass/volume] in Serum or Plasma 0.07 ng/mL <0.01 [facility] ID Date Data Source [id number] 09/27/2020 05:08:54 PM [facility] Value Range Interpretation Code Description Data Devi rce(s) Supporting Document(s) Glucose [Mass/volume] in Capillary blood by Glucometer 137 mg/dL 70- 140 [facility] ID Date Data Source [id number] 09/27/2020 12:17:37 PM [facility] [facility] Value Range Interpretation Code Description Data Devi rce(s) Supporting Document(s) Glucose [Mass/volume] in Capillary blood by Glucometer 164 mg/dL 70- 140 [facility] ID Date Data Source [id number] 09/27/2020 08:53:46 AM [facility] Value Range Interpretation Code Description Data Devi rce(s) Supporting Document(s) Glucose [Mass/volume] in Capillary blood by Glucometer 86 mg/dL 70- 140 [facility] ID Date Data Source [id number] 09/27/2020 08:29:23 AM [facility] Value Range Interpretation Code Description Data Devi rce(s) Supporting Document(s) [facility] TABZKx0yZzKJPhHoh2EkCmPmYYScNH7rknq4A1G5tHZmH9OddWLxk4bzX5BwF6ObYOXcBBTEQB2UtNVu jb2 [file] 7+C7vxUc5orV2TigfwcbxZje9ypRVyC/Hzzu+nTibTpzc9a2lbgknhX6PuuiXTzTh/Sami+H6pO63I44k0 +t2ZT+vS2NfBX9ZzJ6znDU+/x2s61VjXmkX7g9yJ3tM5eE/c7Uu7jidVTsEydt93p0R+jHho7FO30ZHK mYUueLvP0+8iQxA/s/S0pbsNAYGun81o07amA4k1Eg W6TC4V13qbUqiH5aRHP4ul1Atsi1A6JlptN0QI9/5GmTxe+o3v8JiBs+oITyR8w4uc9mc9OqySU9o76z QdQ9ojexWwV3pnN01g0l7OOY228uu4p9xL5N1NntoyrlQXp3FL/MvjTTLyb+9zoc6gwLIeqw/pzRp5+l 7uzUw2XnLjtt53shj0j3Z52Db61CWwnslq1NcY3Cl2 WLMlNJ3y8y07uy7mVM6+09mLWZFGj1HUlg652oI+FnZwh8E4XjL+5/u0Oz8f+eLnI1/6iVRWphcftye1 hN/F8ZaML/A6QOF43TqN48opYCLFezRdW79V73hPbGVqeXuVy9nFHKqIVS9BJ2+LqAvrwkSXPYRNYVOY CAGE MAKER MACHINE+7l11bK8IdGEtDNpGhIk1iX7bF5ec2og+942EdW [file] W8xsBi6lFlJlHYKZT3Aem1TkNDPqQTGLPv7+MfD0KPI0lVWfTzp3NDU0NzzuBVJTOy== ID Date Data Source [id number] 09/27/2020 05:47:17 AM [facility] Name Value Range Interpretation Code Description Data Devi e(s) Supporting Document(s) Leukocytes [#/volume] in Blood by Automated count 4.3 10*3/uL 4-10 [facility] Erythrocytes [#/volume] in Blood by Automated count 2.84 10*6/uL 4.6- 6.1 L [facility] Hemoglobin [Mass/volume] in Blood 9.0 g/dL 13.5-18 L [facility] Hematocrit [Volume Fraction] of Blood by Automated count 27.0 % 4 1-53 L [facility] Erythrocyte mean corpuscular volume [Entitic volume] by Auto mated count 94.9 fL 80-96 [facility] Erythrocyte mean corpuscular hemoglobin [Entitic mass] by Automated count 31.8 pg 27-33 [facility] Erythrocyte mean corpuscular hemoglobin concentration [Mass/volume] by Automated count 33.5 g/dL 32.0-36.0 [facility] width [Ratio] by Automated count 15.9 % 11.5-14.5 H [facility] Platelets [#/volume] in Blood by Automated count 130 10*3/uL 150-400 L [facility] ID Date Data Source [id number] 09/27/2020 06:06:23 AM [facility] Name Value Range Interpretation Code Description Data Devi rce(s) Supporting Document(s) Bicarbonate [Moles/volume] in Serum 22 mmol/L 22-29 [facility] Chloride [Moles/volume] in Serum or Plasma 106 mmol/L 98-107 [facility] Creatinine [Mass/volume] in Serum or Plasma 3.01 mg/dL 0.70-1.20 H [facility] Glucose [Mass/volume] in Serum or Plasma 73 mg/dL 70-140 [facility] Potassium [Moles/volume] in Serum or Plasma 5.2 mmol/L 3.4-5.1 H [facility] Sodium [Moles/volume] in Serum or Plasma 136 mmol/L 136-145 [facility] Urea nitrogen [Mass/volume] in Serum or Plasma 41 mg/dL 8-23 H [facility] Anion gap 3 in Serum or Plasma 9 mmol/L 8-15 [facility] Osmolality of Serum or Plasma by calculation 291 mosm/kg 275-300 [facility] Creatinine/Urea nitrogen [Mass Ratio] in Serum or Plasma 14 [facility] Calcium [Mass/volume] in Serum or Plasma 7.8 mg/dL 8.8-10.2 L [facility] Glomerular filtration rate/1.73 sq M pre dicted among non-blacks [Volume Rate/Area] in Serum or Plasma by Creatinine-based formula (MDRD) >6 0 [facility] Glomerular filtration rate/1.73 sq M pre dicted among blacks [Volume Rate/Area] in Serum or Plasma by Creatinine-based formula (MDRD) >60 [facility] ID Date Data Source [id number] 09/27/2020 06:06:23 AM [facility] Name Value Range Interpretation Code Description Data Devi rce(s) Supporting Document(s) Magnesium [Mass/volume] in Serum or Plasma 1.5 mg/dL 1.6-2.4 [facility] ID Date Data Source [id number] 09/27/2020 06:06:23 AM [facility] Name Value Range Interpretation Code Description Data Devi rce(s) Supporting Document(s) Phosphate [Mass/volume] in Serum or Plasma 4.3 mg/dL 2.5-4.5 [facility] ID Date Data Source [id number] 09/26/2020 10:58:19 PM [facility] Name Value Range Interpretation Code Description Data Devi rce(s) Supporting Document(s) Magnesium [Mass/volume] in Serum or Plasma 1.5 mg/dL 1.6-2.4 [facility] ID Date Data Source [id number] 09/26/2020 10:58:19 PM [facility] Name Value Range Interpretation Code Description Data Devi rce(s) Supporting Document(s) Bicarbonate [Moles/volume] in Serum 22 mmol/L 22-29 [facility] Chloride [Moles/volume] in Serum or Plasma 107 mmol/L 98-107 [facility] Creatinine [Mass/volume] in Serum or Plasma 3.11 mg/dL 0.70-1.20 H [facility] Glucose [Mass/volume] in Serum or Plasma 150 mg/dL 70-140 H [facility] Potassium [Moles/volume] in Serum or Plasma 5.8 mmol/L 3.4-5.1 [facility] Sodium [Moles/volume] in Serum or Plasma 138 mmol/L 136-145 [facility] Urea nitrogen [Mass/volume] in Serum or Plasma 42 mg/dL 8-23 H [facility] Anion gap 3 in Serum or Plasma 8 mmol/L 8-15 [facility] Osmolality of Serum or Plasma by calculation 299 mosm/kg 275-300 [facility] Creatinine/Urea nitrogen [Mass Ratio] in Serum or Plasma 14 [facility] Calcium [Mass/volume] in Serum or Plasma 7.8 mg/dL 8.8-10.2 L [facility] Glomerular filtration rate/1.73 sq M pre dicted among non-blacks [Volume Rate/Area] in Serum or Plasma by Creatinine-based formula (MDRD) >6 0 [facility] Glomerular filtration rate/1.73 sq M pre dicted among blacks [Volume Rate/Area] in Serum or Plasma by Creatinine-based formula (MDRD) >60 [facility] ID Date Data Source [id number] 09/26/2020 09:57:40 PM [facility] Name Value Range Interpretation Code Description Data Devi rce(s) Supporting Document(s) Bicarbonate [Moles/volume] in Serum 22 mmol/L 22-29 [facility] Chloride [Moles/volume] in Serum or Plasma 107 mmol/L 98-107 [facility] Creatinine [Mass/volume] in Serum or Plasma 3.18 mg/dL 0.70-1.20 H [facility] Glucose [Mass/volume] in Serum or Plasma 159 mg/dL 70-140 H [facility] Potassium [Moles/volume] in Serum or Plasma 6.1 mmol/L 3.4-5.1 [facility] HemolyzedResults called to and read back by KEYONNA OTOOLE RN ON 8F AT [phone] BY [phone] Sodium [Moles/volume] in Serum or Plasma 137 mmol/L 136-145 [facility] Urea nitrogen [Mass/volume] in Serum or Plasma 41 mg/dL 8-23 H [facility] Anion gap 3 in Serum or Plasma 7 mmol/L 8-15 L [facility] Osmolality of Serum or Plasma by calculation 297 mosm/kg 275-300 [facility] Creatinine/Urea nitrogen [Mass Ratio] in Serum or Plasma 13 [facility] Calcium [Mass/volume] in Serum or Plasma 7.9 mg/dL 8.8-10.2 L [facility] Glomerular filtration rate/1.73 sq M pre dicted among non-blacks [Volume Rate/Area] in Serum or Plasma by Creatinine-based formula (MDRD) >6 0 [facility] Glomerular filtration rate/1.73 sq M pre dicted among blacks [Volume Rate/Area] in Serum or Plasma by Creatinine-based formula (MDRD) >60 [facility] ID Date Data Source [id number] 09/26/2020 09:57:40 PM [facility] Value Range Interpretation Code Description Data Devi rce(s) Supporting Document(s) Magnesium [Mass/volume] in Serum or Plasma 1.6 mg/dL 1.6-2.4 [facility] ID Date Data Source [id number] 09/26/2020 09:57:40 PM [facility] Value Range Interpretation Code Description Data Devi rce(s) Supporting Document(s) Phosphate [Mass/volume] in Serum or Plasma 4.4 mg/dL 2.5-4.5 [facility] ID Date Data Source [id number] 09/26/2020 08:42:10 PM [facility] Value Range Interpretation Code Description Data Devi rce(s) Supporting Document(s) Glucose [Mass/volume] in Capillary blood by Glucometer 159 mg/dL 70- 140 H [facility] ID Date Data Source [id number] 09/26/2020 05:33:15 PM [facility] Name Value Range Interpretation Code Description Data Devi rce(s) Supporting Document(s) Glucose [Mass/volume] in Capillary blood by Glucometer 86 mg/dL 70- 140 [facility] ID Date Data Source [id number] 09/26/2020 03:33:55 PM [facility] XR CHEST FRONTAL ONLY [id number] RESULTI nterpreted by:Guillermina Rose MDINDICATION: 89-year-old male [...] rce(s) Supporting Document(s) ID Date Data Source [id number] 09/26/2020 06:08:55 AM [facility] Name Value Range Interpretation Code Description Data Devi rce(s) Supporting Document(s) Glucose [Mass/volume] in Capillary blood by Glucometer 84 mg/dL 70- 140 [facility] ID Date Data Source [id number] 09/26/2020 03:57:14 AM [facility] Name Value Range Interpretation Code Description Data Devi rce(s) Supporting Document(s) Magnesium [Mass/volume] in Serum or Plasma 1.6 mg/dL 1.6-2.4 [facility] ID Date Data Source [id number] 09/26/2020 03:57:14 AM [facility] Value Range Interpretation Code Description Data Devi rce(s) Supporting Document(s) Phosphate [Mass/volume] in Serum or Plasma 3.5 mg/dL 2.5-4.5 [facility] ID Date Data Source [id number] 09/26/2020 03:57:14 AM [facility] Value Range Interpretation Code Description Data Devi rce(s) Supporting Document(s) Bicarbonate [Moles/volume] in Serum 21 mmol/L 22-29 L [facility] Chloride [Moles/volume] in Serum or Plasma 107 mmol/L 98-107 [facility] Creatinine [Mass/volume] in Serum or Plasma 3.16 mg/dL 0.70-1.20 H [facility] Glucose [Mass/volume] in Serum or Plasma 97 mg/dL 70-140 [facility] Potassium [Moles/volume] in Serum or Plasma 5.0 mmol/L 3.4-5.1 [facility] Sodium [Moles/volume] in Serum or Plasma 135 mmol/L 136-145 L [facility] Urea nitrogen [Mass/volume] in Serum or Plasma 39 mg/dL 8-23 H [facility] Anion gap 3 in Serum or Plasma 7 mmol/L 8-15 L [facility] Osmolality of Serum or Plasma by calculation 289 mosm/kg 275-300 [facility] Creatinine/Urea nitrogen [Mass Ratio] in Serum or Plasma 12 [facility] Calcium [Mass/volume] in Serum or Plasma 8.0 mg/dL 8.8-10.2 L [facility] Glomerular filtration rate/1.73 sq M pre dicted among non-blacks [Volume Rate/Area] in Serum or Plasma by Creatinine-based formula (MDRD) >6 0 [facility] Glomerular filtration rate/1.73 sq M pre dicted among blacks [Volume Rate/Area] in Serum or Plasma by Creatinine-based formula (MDRD) >60 [facility] ID Date Data Source [id number] 09/26/2020 04:11:43 AM [facility] Value Range Interpretation Code Description Data Devi rce(s) Supporting Document(s) Leukocytes [#/volume] in Blood by Automated count 6.0 10*3/uL 4-10 [facility] Erythrocytes [#/volume] in Blood by Automated count 3.05 10*6/uL 4.6- 6.1 L [facility] Hemoglobin [Mass/volume] in Blood 9.6 g/dL 13.5-18 L [facility] Hematocrit [Volume Fraction] of Blood by Automated count 29.1 % 4 1-53 L [facility] Erythrocyte mean corpuscular volume [Entitic volume] by Auto mated count 95.3 fL 80-96 [facility] Erythrocyte mean corpuscular hemoglobin [Entitic mass] by Automated count 31.6 pg 27-33 [facility] Erythrocyte mean corpuscular hemoglobin concentration [Mass/volume] by Automated count 33.2 g/dL 32.0-36.0 [facility] width [Ratio] by Automated count 16.4 % 11.5-14.5 H [facility] Platelets [#/volume] in Blood by Automated count 124 10*3/uL 150-400 [facility] Confirmed ID Date Data Source [id number] 09/25/2020 10:19:17 PM [facility] Value Range Interpretation Code Description Data Devi rce(s) Supporting Document(s) Glucose [Mass/volume] in Capillary blood by Glucometer 89 mg/dL 70- 140 [facility] ID Date Data Source [id number] 09/25/2020 06:18:13 PM [facility] Value Range Interpretation Code Description Data Devi rce(s) Supporting Document(s) Glucose [Mass/volume] in Capillary blood by Glucometer 136 mg/dL 70- 140 [facility] ID Date Data Source [id number] 09/25/2020 06:18:13 PM [facility] Value Range Interpretation Code Description Data Devi rce(s) Supporting Document(s) Glucose [Mass/volume] in Capillary blood by Glucometer 53 mg/dL 70- 140 [facility] ID Date Data Source [id number] 09/25/2020 05:13:21 PM [facility] Value Range Interpretation Code Description Data Devi rce(s) Supporting Document(s) Glucose [Mass/volume] in Capillary blood by Glucometer 50 mg/dL 70- 140 [facility] ID Date Data Source [id number] 09/25/2020 05:13:21 PM [facility] Name Value Range Interpretation Code Description Data Devi rce(s) Supporting Document(s) Glucose [Mass/volume] in Capillary blood by Glucometer 58 mg/dL 70- 140 [facility] ID Date Data Source [id number] 09/25/2020 04:05:31 PM [facility] Value Range Interpretation Code Description Data Devi rce(s) Supporting Document(s) Troponin T.cardiac [Mass/volume] in Serum or Plasma 0.09 ng/mL <0.01 [facility] ID Date Data Source [id number] 09/25/2020 12:32:25 PM [facility] Value Range Interpretation Code Description Data Devi rce(s) Supporting Document(s) Glucose [Mass/volume] in Capillary blood by Glucometer 161 mg/dL 70- 140 [facility] ID Date Data Source [id number] 09/25/2020 11:43:20 AM [facility] Value Range Interpretation Code Description Data Devi rce(s) Supporting Document(s) [facility] JMBFIj0yIiSCCnPdv5RlApEyESRcWA3izzd6Z1P7pQUaB5OlqUHfe6gjO0ReE9AcJVNiDHRXJK8FhFOx jb2 [file] kGzG54j8/S5B97Mmz6VEHE3+Y9h6uyTGEbey/KweBs3hzdmFcOQnw8fUy/Jose Ramon+Tm2PVg53Hn5aG3F2Yi [file] Uj5WjnYcfklFgKl0/5yZakwRCC35AePS/олег/8VK7NYy7Nt2y9hL7wyJ+ehIAdk4cL78Sz3Gzgi0X3W9 8d362rCGZrhhlNO02ohc0dgnf01wxODco2I1n9fFBv q339/P9VPf9/AtOIDgo03pt294nXjsHxbeSq/kA5A/UZqGfi/nkwtyuuh52A1jQ792who5c5vTAfb3rV EsLDx3dzL4ErfhE5mqyVAa5LBD+uaoc90v9o7qn2bOR61iW22EdVkT+3lHQi62XqWfAsY4xOthcSpnSz jXU37c8/3arib9tQHtlRzJV4rfQ7rw86C9Q66jgFLb PHV/ea27p+8Xrq9I3h0Hcqav1njTI6sj+6u0rf9u4m0n2jOt97bmNgfLzmu+csjbt56a/T283r0aNq0M U+B2bf+dPjpNJ8N86ast8wc0gBY64z66IKm0imdJW+4j9ekC0R+ny/uo9VdF62coe5Ike7CSF0oeBX9D 6vtp/M+HzDIFy1ka9niIf+EbTM+Oqq8m9/vqqe05/r MfRo844Rvh/7+f+iom0fkY//R9rP/yPtF/Tn/5H28/4LA1ndjD13BIh/BlCUGTj96K2b/bej/415dw9U 6ElAM2fQa916jchi8boAvrJEwoQGOL/p8vkZX+gn21xqeYDOBB/z7xhWL889+DCaJO6FbZV+2tcN+ga9 QW/Q+6nPjK/2s/l18yP0Q7ktpqxskNN6O3feVZH0DQ uD4U2z92F8s8p9UsVT6qBySO4FepQo7Ow0Ju4zSjk3JbiFCvJVhiqnX0JguDg/92rkNbm41KSoy1uqoC dtnw50Xa0Cl8Q33O1g60fruitbL/dt27oPrU+ueBQrE0L5gx1d7QMUnSh1fFjztdBjud75hN30gn/cX/ YY039e8+8k89lgY3fkcR44AaPp/J439if5y+ap22yv Vs4zsx78iU1wJ+sWok6411je+tw/46sqR+SUP+Rfam2x0qfcPNh8bK96cR02gg2tKsXCYjecvQ4vAsN5 dG3Un5wp8l5yjlp4+skxChrswNI1O4nLdojv5NDAyWG+QW/QG/R+7CaeZ13/c+eGmdefpZ/treuAPqAf 0A/oE/o8+hlfPdfQC/GOjLPix84u/qrqP+sq0bRCc0 Uu9l1uTitLspwaN+qm3u9IrypEF0BWaak79yWUf/3iGzv9cN+mx3/m/FX5xpy/xh4Vn0oxElK1fwxhj8 2b4Pu7PDh3v2JyNt5GDa0Un22zJ9Xn/Lpw/YzDc/vLuYZeoVfo2+mnjvHKz//fue+fRbA25nCpX3+h79 GC7AKlhFGzN/QJ/fl/OHo78Ba645guGgSZ6A/nuSu+ feW848rZ6392HdxehdH4Z1/sny1ioy4pl+Eejhre6VKj4jo+Biko8sgVBAf41+jX/NW+hl6gF+gVeoW+ Ow5KCePQm4B31owzrbv+W/NXdX2+oddrf8ph59MI80nzsKywAkxqK/xg474V+d1j57RbrKtzHOvSpyZ/ 9uw2FyhxjyLu3F/18fpnxG3s+tne+Z9S8rkHfYPdE1 Cz8A0ev6M79epTPfl8y390c15ApAEl8As0S45q3VfenZzIW0bxo2Dew+2VpZ/tvZbeoe+2p1u7qcX1HD tjb575kNO0b5aea0W6xg1ZkdZzfOtwZgpKgMIewNctWIgXcl5+p1zI89I4k6WqvJ/Qn/kNuxLlnPkrkz Omf1Azp44X/LPJ+H99RpS1VkulgU6Q2qsfE6ujVO7/ K6OGEjRyISrF8MY5u06m2v2wgvSwv/biiQ736qzC21Fle86Gnv+bnvUjw/hBGJ1KgU8ltO1uwW4r3tmK 52YE2YCM+qBh/vxod9ULEoDsXmcSS14rvA6+9GGWHb5t9T6S11jp/Bs5w2F3Rd1thP1Slfjs21CbecN5 xVzxxS9zisWfAr5d12A1+bcRnz047p9I06DG7SMR+q WbyxWrJwr6VoubEVuK/rl9W1OLtciuDP27kdUeoxCCN5FN6+tn/df8rP+jl81ekWk4Rt29aPgUKfk2Zk 44yNcZ7oZ+uK+hD+gD+wQ9fG6sM+h47wDpPt/G+qB1+HOHP2P+yrA+aFgftA5/dkmXvgajdc19+HPH++ 31hm3if+F6tzgnfasu3N5M/CbJ1wU5B+0NtDfQXqwP Wki2EClg6s6H6iL68QR+D9mmeD8tkxrpprzeiJ17hr4FahWe2znd/7Wt+GrGCTbO+r6NE2/YgD8P+POA Pw/484A/D/jzgD8P+DPiKxvovwPtHSeetIH/RwP/n7fZYyZReJwGoY/E/6NE/6F6KKIbHa9Ny5dIV/sa eoPeoHfoHfoOfYc+lCc8AJbyT01y70A+5G/4dfI3/L qgF+gFeoVeoW/QN+gNeoPeoXfoO/Qd+kp15U0UT/p1/FaOkPDRCy0nI1/d4c9YMkPB2QY4vepQz/hKln 4264s77x9r3Yq15/hTyf9hxdE34eEo+KqehfbKeb++5yyin363B9/8q6U//qxLs1jz8BH3eP9wL+gb9A 97e73bv+gd+g04wl0eW+bU9EB60XzeexYXH306pfVo XoHaL4davI9c5EZmjzNIG147idVfKzGjI6wtaB0s3WRskhTMC194labr09EnQ+v7bic/x+2s/7lC8Tk9 Hz96N8qmpH163alPsDG9ggnd+VeO/CtHfOWIrxzxlSO+csRXzjxexFfuaK+btO35WhhykR+ykL77Dq6j 4/063q/j/Miv5i456Hswdq6nB/mm5xkekM6vgbB37l i9618zW83gkVF7BT/QK/SKctDeiq+W/pYaXtDeU0fsdG7k4ZLiqeSjBRo4//V+/u71X2ar4wc7abEaMw UoU3nxlU8f5SQclqENt1B/5ci/8kB7A+4LkBqWFyVYFrLeiS855i7t52rV+SvH/JVj/soxf+EMq2YQMy enengeN579Ze3g08U7C9o63F5K6gG+8nG+F3zFV+v/ zsD/I8xf+RjQJ/SINzB/5Ql/msVp74s7YyxdyS+vaIq0GeqybM+vsQg7Mb1t0g4h+WpmU1td+E3inH85 JvTn+6hfp//264JeoBfoFXqF/weqpNsrgtapwekvveorykxv3bjP89N//bdj/qpj/qpfA/qE/nzvdznj c0d+e0f+WZb8Q059Zy/hTL902Xj2Zd5kMVc7gT+gvY B5MlXy5T/oB/SJ8vF+kd/ekd/eMX/Vkd/kYc3F01igV/VPugVi8X3b8fCYiid765oyn9ifZ/cHyhkof0 Dx8YD5Xc4RkaqQbasdqM9YgkargqkgHl680d8u+ee+6ja2ahel41/37q4N9pd4PlI1qo7azM9N+pzvhb 7iq/XcFV/BjURnfX6AeWnjeioPH1mAUm3K3T+R394R T5VVCz4oVJn47XBlamIQFeVJD5gDEE75H/+PuqP/+nob7eMmzsXG9KN6mzumTdE+6n7yn/uKr+q3Jx+p +4ts0CdlksB9plXV+Sqq1V8RG80X9a61Np1mn1S3o4858P/3fvKBez/0u7749Z92m19HkwF4edNf+oAe 5gIqy35vAitLgz8ac3i13C3P5SM93et4p3fu04Sum4 HwgJBgxzjIrrcey599cqW+6kki6XI2Eu+5Z9zgmpgmgnFfqpMAqlN4TsH5zV8H5Q9s53C3z9Pi4UgZQ1 aR3rw3gh6Dpoc8bCbKd/YOvN+B95tn/ajnWT/qedaPOvLbO/LbO/Fzw1GvC/684qsqH/1Y1WJThAVGY1 RTSe9A2vN2U/030X+xPtixPhjIb4/r+QCoef8Q1q0F bw/lgxem7iY00CECrop091M0LO1T5dhFrKQCDG/QD+nJ8Zy42qx24eS4KJGXZ/QKvULfoG/QG/Ror6C9 hO5X6JUtmcrJQ6F4QfC+KTB7ZfW6y3ui34NqSkBx/SK/PRTvF/ZYzwz1vVzgxNIt5eL0BEW+KjB/FZi/ RvhfVbwzDiGFjsiiVZ95NBjpS73/1dfmf6wy+aOd8S oa3i/mr6Kd+Z4vQnt71UCOquU01S35Ao5jh/kkzGtQLE2lHQ2WrR+ZxvS7qi61Xkj/GBVfybp+6dcx/D Dky2GCq5t72kb1BfWp30DGvcY6H73/kIs5tzbDjIu3qMVzY570Bg7nD497mR2ro76PPgJ/rwy6wfheUU px2651lbR834ug52/yZz5/2S1v5573aZi34sbg/Zj5 6l7jSLIzpll0v1mhB2k+UwXoH019zQj1cRnoW2/u4i4CvWbrO8n/Pf05uYqb4XeRi10xg4954zowv6/u 6bh/5iJnywdS89/tveOr+5E2dN3215Iom/35W8h99rApbojBs5bj1E7d5IB1C20w0hsd1ybJFF1fz2p0 mynD7kl+renjn3tzjP/P/Ro91/H5uy0CXg1fAR/pOr Pm3avT49CezlvLhHjp3lujXnSF2+M/Q79ukrJhelbyC1aB+Raa0F1y8NO1G+tl0c/8RmD+KhBfBfYPRu 0fnM+t/Ctb17d+4SzKU2i3w/2iq5f90pC/+CQp8cu0tv9bsNz74oi1wro23tV6+r1VU387Co47zcW+5T +i8148idh78yaHT8+8dbG9uQ6lH+aw0Q53W/UfJx84 Kr+7jl7uBubDp41Ea/EKGvZ6Hs6OfsIfPAqn7mqU5l5V1oslp6ijly4S7mWADYj/MlZ+ip9Y0x161yPA yX+Old++u5VW5SU+z2C4fagj8mBzH97ZWvrnM1cE/uRPjpXfvq+cd2V8gPRzt3E/7R3Ibx/Ibx/Ibx9X QB/QD+lM8Bw4hL7cktQ7i8K2qgev/Pg5FsvkPKijS2 +N394Jtd6dR7/GELQX+e0D+e0D+s7Wjt1SCVKY6yfZ+Yny8+p01MLBBhaFhv36N6IFWy/Qk88/FO3Vk8 8/vPK7tl4jSfIOHPo3Q3S37wS/w9Mmbgf/8h6ArlyqgCa8yD/6bTv5/KOd/ExQ2P7hAS/329DehvfbTr 73WPnt+xp6P/Vf+e2r/iu/ccUe3cyT/++jnXz+sfLb +4FksE219bOUjd/Sn/f0xct8yyi8ryv4ryBg35scD/n8Y+W3r2et/PDZ95R0wb8O7s3s1d20w8/9V377 hz65t3DFJjrQA8szR/tTxspvX/Y0vN+V376vz/8D9x084zVors++x7UId6w+e10b7j/8S3xMe6/X0M/2 Xn9ux0097inAxLFb/+9w9F9H/2T9850szyXtbe1+Os arld++r8/43DE+9wa9QW/QO/QOfYe+Qx/QB/QD+gF9Qp/P/97t8jzp6fkbHoAw5hJWt3pry/mNuoa+Qd +gN+Katrin+Kvn2lujCcjAmWx+UM5Z/p9i4s8HBLr2Gb3B89/3elK7v6V5h8Es6Z42tvv9d+avfF0/33cD64 EQ78YK64MP48eH33qC69kY57lH91elMViH3Bx1UTza tmDevQ9QtX7C6E+NFOgVeoX+tZ1F4M3F1O+YEW711+rHmr/a17i/o9z0C9518HD1WFZoD5wx4CpnY/Mb lK63bdV5YBd34mhPwmisiFSaa33W53krJd27n/2Gchzln/elmS8SjD2d1s9I55q1wxzaXN55Km03OX+V dZ6ObV3a6g8R04ouH66szphcKra+fVClS9byZUpvnc jLXl8uIP+GgX0YhB5c1zmY76UC/PZE/Jose A/dfU56835wDO7W5cw2JNe5ncAxBgtfVfZ5b5j1I8OKW+Kj F/lWv+kv838iYX73RN2iKY+kCybAY7zQnslv/MmeP6gTmjR0n9b0Z+VSL/KpF/lZi/nrkx62EJH+3r44 zBj1qAFbHcraJfR0u1e7S1QRT+KpF/lYb3a/Bn5Len yw9V3rrmr/yeXJYR52YJ3yFF+aGraHGkWknAY9kkFyqHF8KLpD8arC+N32vqzR1/96Hfhy7v71oVHcv9 He1F/eZccLZeSxvIq4gYw4/qO37zj5nxQ/03/wCGwsw0K/oBfUJ/0tPkt0cMZW4VuaLB+e2J/PZEfnsi /etZ7248eqH8jEs/sV94b96Co/7b0X87+m/H++14vx [file] IXbkDH4hmgDkNLFhCfzsAi9wmMN2DXGiXtvQDz8Mo7ZvtqB6qtXnFgDgFRd1XoZbMF3Q ID Date Data Source [id number] 09/25/2020 11:40:10 AM EST [facility] Name Value Range Interpretation Code Description Data Devi rce(s) Supporting Document(s) [facility] PADRZo7tYlWAMtIsf3NoQpFoQASgLN0eyfd8I9J5hFQtL7ZtyXFjs2gkP7KnD2LaKXXbUVHDHF5HpPSc jb2 [file] XHkCLbYUJDQiAx0wlVTERY4RICkjXFBUJH2NknAIV2gQHhXXZBUXxGzefofsUfcUJ6SeIZNPjDWSUDAQ QIMYpCLJEZ8M98P5KbLcFYtTxWSFoxULtsHbHCOBP+Z8OV7S9LbHjkQrXHFMZ+N0OB4K6AqXdhMaYBjY neNcJ8zHuFomORRdnXRDzCXYEcKYrgpeNLortZjf44 T4OXLFoRSwUMKZLdSfb8pmKkYLeDSlsErex6cYiGLFqShl91mb32gq25sg61wo22tf95pp56pl11ms32 jh03fs86az93am66sk24vu70ei56um39ng77da17nr61vo48nn76mx92ul50zx57zu33ep73it25rv91 iy09xy51pZJ3ecq63va57dn86bv07dy85pk95ab17t n24BbvuB+RNlIn+wFGVQwD3Y9btDhScVpTRzRxTfoFANRoC92NNngkGdI2/xM1b7bum4mF/O5NpzsRo5 gHYv5DIKmBEOHekXTtaheODyZhoMVoNWdGYXhQhMPMIG8BGURRJNLWgFRrJnDSeYonT859a792r833j9 30f322l986v520j360l981b320c128o9A+O+s3Hf2b kkyTv2Ih84P/wgwd7SqmCJ5zFW0YoN+FNHFpphdAaGQ52wTmHDSDQzDSNjljnCrPmogXaCK27kFwDxZz XZduLNfaeEL8tpQX6UZG3bhO01lyd9ZTVVHIZGEmsM5YSWn2WDS6cPMotTrOZM6vZTpbNie0Amh0HbD9 4B2KSPKZPPbLGOPqqIaFoky8sXIORWpPMumgLyRbfo 8CZUSqhx3LOCmkoGnoKTJn/rB08uzE6Q5Ed6JLG+2NglbYfFKMAqYiSNhhDHllaOZ1nxUZ9QKF2whC59 vboa0bVR3ZeN+XEnfQIiLkPZv6oBBqBIUojcC86pzE4GpQ0UQL/sLYcAZRNckWtf0LPoBYtiDHfvHZwz YLhnZ35L13qrhX+X05OzEmVRC6q4pBxrGDfS66qfcQ 86f+QyPMsLEaPCFXRqDj5Gu3HuCXoevgmPjZKlaLSTNL0TkvAGTVTDOIP7a1E6QH6LcCBmNuDMkBCjzB wiTsSJkIOFMxxdj+ZUNF7gD/jaLiMjdRD7veJeES+pD3NsHuob5hS1kn7kiz4oeFn7hSinM56um/7S9c xVWsh2CR+nN4gW9wSufZGO1Qf4z7UvZMfYHWZJu9E8 poDQdHZ5tRfl4/MhG4rLG/rEkzte7Pzm4R/drejTMPOPdq5WaKGbX7J3jk47e1klSWFB6Aj4T56ngUeT s12v2hPLtvyP9ITc3wGW+2qvcTCtb/D1Sen1YaoM9/wufbPJ46POH4NXH+LYpn5N5NAxM7HlmAO7Ccj4 SD+oVu0jNkmyYJnV17P28DzAv7BhAc4U4w9U8AY2EB 2R27T9U7v4bnvOQMfF7YvfNkBAINaqnXNSM0Zw07W4zMsnzxWWm3vMgRl5csqMVeS7Jz4SMFh+N64LZ/ mFed876WhtAwmkocd9GY6wkL6BUfRmwBSWV/em1qQBrSVCZ/r+r372+K4JynCC8Rk/yzcdgl7jy/32+f 9++/p0fu5cEdIO49B11ymuI3z9/PVv/ubtv3/39bf4 WCY4PZ/03odmYdxHswc1ZsX0+fmQXj/57x++/nbpUYLn31xklT4cz29v/n6P5/Pf/+tq47f87nitj/7w +ePbLz5+9n6IN38+9qtvv/n1x0/ff/P5Nz/xv3t7e/v03a8+f/Gvc6mJQe0/+ubjrz/8/Wz4mCxW9+V+ wWwgyLPMMbHjjub6F0+/ffr6N5+//vSjD86e+es3+W Q5ekpDn39+9vPvvvyHv/UDegnz7b4/zlP6Q85++5xzps1l3w/fundpf8bikh0/+oou6rxp4vgWr6865f PbN9/+0UyZV82+++f/6fT0eu7+9fbdt2/v2p99/BaqKe85N0j//Nc/wfll1Xtf3mwufu2+lx+//Obvvv xd8raXxb++/ert89s/gdv6a1kYY/v2u0+/+PDzd67+ wt+/PIe8m/7U28cv//0pgDynM9u+9k9ff/y78pkrgyURV8/g7cD9va+Dt+/+7n1e/MmHX/95H32Q0i/G e5fa3/f0XyhjKqgrn47//+4si3sVdh4t+7siBn262sGP36+v+UBkgF283Q/98hd/2f9kxdc/sl69s91/ +/r6f9v94fxB500/w1+7jBfOuM4kA0/20ylL76j75S efvV/iy68/fPv3H9/06j0eC7+/fTsbbkneY74/Jlz96yujK/1x76s37i5/fPX9j6+ahRVeV/3yT3/8t9 //+Q+/+9e3/+N/vf369//+/99t//8a2k955d3//7t/fe3j4P//125/++DZ+quOn+LyO7hW3ig jn5cMv/unWTvkGng6xHl/9D35v+KwnaC8nY/wauPr7 7Pjg8/r6/uPRPkwuCV62+ls+bXky1Zbixx21n5LQB1Osj0a5/DTy25zg7ofY3+ux7wqYhUlUeV+/+7ff jFR3RvrWc1b/+KcP//[employer]+++/viLj9/+PUsdMoSzH4vbl08+dWi1yKGV97u/ecB/KDvxE82Y8pYQ2icx w69/98f//Nu3P//2P3/3g6u/xcptiIhr5fO/sItSez LC20nXy6Pdvie4/R//83d//n/+l15P1F77/5Uus22Dn4N5F9b/+v7tX//H+83//k9//MO0P9nhq30yq4 iwf/z803/8/C/s6bgE+Lsn/9T73HrBN9Tvj1tshf+I+TnQ4tprdgNb/bhXHuyXP/d6t39ll/2fv/uP// dsIW6s1aRHs/y0w9wAvxng0/39/7/+/DZh5Ugj9One /vsPOjh+gH752//xL7/9j9//9o8/+vub6eW//sY2mPPvB8/0hwdqk2aag/SR26Cf/+af9feQYmSSPqVB 4fWBz7/7l//rj7//l/d7+PJg6EaGjM37Kols7Eu/4z/fx9W/fvE+Q371m//6nelSpVXf/gL6pla2/Rd8 rb9chf/9R14/UFNq59ods2/9P3/3Nt7+2L8sC4kMX1 yel7bJ7xDLq3B+1xsAZ9W54+5CUSbcm45jcsn3/kQ//3348svvfvXt+7w7ayT0uz1V2Q4TZ/WRBQplbm HmaCTrHI8IKP5mo2GyBwZ7VIBbl8MuCAwtXBy6qSLtUFvhklEoq7TnfnnpE1Oyq3FdIbGuWZWvJuGzIs x1TXNcSfS9eLXbHpRkDQBxU9VnDRNoCdA9MtEpVOSW EF0YGOXgvhVeDkLgRDI+NnLyWB7dyutfSZByv2HaIIlsCFwyUVKhE9C0yJfmLGVkH2OrqX82MGUxU4Rm qeC4NEC7UNAySmIjZXRtgTWaUGQpNAC+IgIeUK4kkioqSUNab4JxYFolFOL8tF1aHOhFPIVMUGwDEPeq OyQ2s49yxcQDVXPwMHKtMQ0HhdVdwIzhcjSceZYaAN B4RoJlKGBvKaTpNGCeUHVVKCNwSWKaBDIkLFAjP9TrrFcjDFlDUXRJSHoAZAyzEuUem8Q5UWQdkkMUQ0 CDTyULVPhjOs0PXuMmFxEjWIZ3GNLfA4HflgEjeTTaCUEXAOrzOrddGYHakG7oaYepJ8RlAIU0p8SjDM 9FO0NzNNIjEJMKNPQ8h4AxIHPweqccalqoQgJdVZNa HRVxYCDcYK9Fxw8ecDLbqoSbWFCNFYxmQnxsVT7kjVwuugyuD4RyzERrIZE+KxPpSS1cbw3+CjEgMCBv Wvt4ZSZmNArhTMAwWJXuLIVwP8apBNYlLxVgQAShEmZsUF9Mm4FvvDSsAd7gzfXoYxnLtZPtDpufWVYw POSlBTNxNcWSWGJmBLIhMCMsGFA8NAOgNEKhVDpzMP ZyMHIvXTB9JJMlNUKtHA3tFyIxDNLsMoY9HzOjUCLkCRSplfUEJXOgVNF3EUJgAQXdMTZuDRWnPVnzCO WfFRRwYKJoZBL6HOM7AVGeCkTaMLNwSFNiZZDzJKOqCERwlmIBCXRoDOHrXTV8JZOdLDSqPJGkJDjlLC CcLGGuAQbgIAKaANPrAF0eSpPfNWZbQPEwGVvbYDBv VTZusuFOXDFdAJKuVMPgLYHsLDRoGDDqTAhrLANvLTHmVSWsOUGuZRMvLZ8pMgPqVNGvSZN1DVHbIPVw XQHcjkBRTHHhMGPkELr5OZZaGBYiOSBdXHctJHPpXOOxKWA7SCYjLGPyVP6bHcBnGCBcQCL1IlYgEJCt ZCMmbaTEWJVqSDTpIJW9LgBsQZMuZIClRUlsOJSmFH HrUQkiYAKsFCGzNW3xTvNaZXJbIPTeOFobQYNrRTVzkwFHAJKiLWMvDCBnCkLoYWLdHPFaOLzoSVKeBG WlKQOvRMQdVZFdEE8bHpEpPZXpTOA9WLhrUHClQNYlkkPZOWTrKOWwTVeiKTWiQDNzPEReQIbvAJKgOU HiMIK7BSKxNFQuWL5mNcEfXIZgGGAsJVKpVbW8OjIi KwLLjJNbhAxqetq6AJzfB7w5SOKwRJrvHV0hlaQtRMVyKiimTk3bxGY2ZCWnUloUDx4Sh0RrqdZ0rpAg LpLvIWMxTwTtAR3F ID Date Data Source [id number] 09/25/2020 08:42:44 AM [facility] Name Value Range Interpretation Code Description Data Devi rce(s) Supporting Document(s) Glucose [Mass/volume] in Capillary blood by Glucometer 115 mg/dL 70- 140 [facility] ID Date Data Source [id number] 09/25/2020 07:37:42 AM [facility] Name Value Range Interpretation Code Description Data Devi rce(s) Supporting Document(s) History and Physical Health system VJWOPn2oKrXLSkAd18/MTKadNUSie0PzUHzlKEv6WGzlAHOqF8LhQIO5jU0eOCM9HSrKNmTuKhYcYGYp lbm [file] ICAgICAgICAgICAgICAgICAgICAgICAgICAgICAgICAgICAgICAgICAgICAgICANCiAgICAgICAgICAg ICAgICAgICAgICAgICAgICAgICAgICAgICAgICAgIC AgICAgICAgICAgICAgICAgICAgICAgICAgICAgICAgICAgICAgICAgICAgICAgICAgICAgICAgICANCi AgICAgICAgICAgICAgICAgICAgICAgICAgICAgICAgICAgICAgICAgICAgICAgICAgICAgICAgICAgIC AgICAgICAgICAgICAgICAgICAgICAgICAgICAgICAg ICAgICAgICANCiAgICAgICAgICAgICAgICAgICAgICAgICAgICAgICAgICAgICAgICAgICAgICAgICAg ICAgICAgICAgICAgICAgICAgICAgICAgICAgICAgICAgICAgICAgICAgICAgICAgICANCiAgICAgICAg ICAgICAgICAgICAgICAgICAgICAgICAgICAgICAgIC AgICAgICAgICAgICAgICAgICAgICAgICAgICAgICAgICAgICAgICAgICAgICAgICAgICAgICAgICAgIC ANCiAgICAgICAgICAgICAgICAgICAgICAgICAgICAgICAgICAgICAgICAgICAgICAgICAgICAgICAgIC AgICAgICAgICAgICAgICAgICAgICAgICAgICAgICAg ICAgICAgICAgICANCiAgICAgICAgICAgICAgICAgICAgICAgICAgICAgICAgICAgICAgICAgICAgICAg ICAgICAgICAgICAgICAgICAgICAgICAgICAgICAgICAgICAgICAgICAgICAgICAgICAgICANCiAgICAg ICAgICAgICAgICAgICAgICAgICAgICAgICAgICAgIC AgICAgICAgICAgICAgICAgICAgICAgICAgICAgICAgICAgICAgICAgICAgICAgICAgICAgICAgICAgIC AgICANCiAgICAgICAgICAgICAgICAgICAgICAgICAgICAgICAgICAgICAgICAgICAgICAgICAgICAgIC AgICAgICAgICAgICAgICAgICAgICAgICAgICAgICAg ICAgICAgICAgICAgICANCiAgICAgICAgICAgICAgICAgICAgICAgICAgICAgICAgICAgICAgICAgICAg ICAgICAgICAgICAgICAgICAgICAgICAgICAgICAgICAgICAgICAgICAgICAgICAgICAgICAgICANCjw/ hKUxN3zfzQOwiiA7R0ncEh3WFp7ILE1jw0QwDUKpQD kelhFkCjsCDwQeROPtDtiPVch9NEtpNZ7WcRPiG7EqO1VfEMfqAH9YNNYcZOJloTOjLWKhNMElVxE5KY CkEMscTF6AaISuBCgaWCCjEQTfClXaACNySFClNJHaQOHxXEWEYQFmRBZuHnUtSHofKA1Ez7NhwOE2UL o+Al5JHF4fu3OyZRabPhOiQF5ale0ZHHkUQuHoN3At pjU4YRX8BQOxOi9CWSOrHRFqeRPyMIPbAXABGzDoI0FjrB72LVHGFz0+SCjldoZeOtkEMbZ1XVBbw6Vt ULw4EJ3JWWKwYSx3vACsWIDEVAM2OAk8EGt8ZEudK1qskBKiZubdNORkOSNpRZ6aML4sBBOlYXI1VhIr TKAHRY8GGXLmMBWlcWMuIMToQDUWMU7EGJlsSTE5ZC BrhjHubXBwPNjdIJ1MBQMujdFfSgWqXCJYHZq+Yh7EBT4oa9ErWTrtLWYnRO6zrw2XACeCCuUtT5F3fV GlW2N1BLvyFx7YJXGqJUImXxGvSTCLEEcmIQ5CHY1zxjX9AL8DyHJdGYDxLWUczKNfTGm9L49ipCGxUW cgIM1NRPP+Marga+Ex2GNVDkTBFtCEIaLrDcRSIPQlSk H9BoQ1FPb1JmM3XyND69gToetgRhCPleKO7WGK8fYVOrVWLVMY6JjKUejD2zpvVjAePlNBWLGyMdP79q oNFoMCDrAHBxSLAtZi5ZAOWyV5XsjeUcyGyzjxKpSSDrXAXLLJ2QBRvppwIqlDNzsYrvJR05xXmuUO7E Hk3FAeFiPO9lxl2QgAWjOz6OUYZpNx3YSYDuJGMuGP ZnLMR2XMOxGlImWZdkONMnJUQjMVX2OIJyYXXvCH4RIeVnWHMhXrT6GiLvOGUzMSScle9PLPEgRDVzPV ClBLAqHAZbITEiFJegIEXjQIXzOZO1YOSvWJXtHB0HJbBsOJCbSZM5UMLyKZBpQHEkfo8SJADnCUHePy ayVLWwCWNkTBRoOItpYVLsEBQ1QmK0QGHrGOMpSE7D ZqPiQQJvTJe5NCnaTFWhOOTxgx5WQYBaGBBxDRG6HxIhJNZaZHAvDLrxOSIfYQImRRR3MRHtCPPeTT1K DiJqLNPwDTA5HjWcHQLnKKOkyn2ONEIxNSJeSIwoMUDcDCCjWYZeEIswAUFlKUR9ETz0UOLcLGXiLJ3J YwOwKZQsTZOkJXOyHFPyWIJhrm0QDVZjNFEdXaH6Ns QmHOTqJOFjNEkfBHIhIDD7OsH4TWZfFLBeRQ9AIwYlQTUiGRz0GKZpETOdHYDvmh7GVTRbIVYxPUMqKV VhMAXpFCKcWRfoOYPhVNX7FcJhGORdHUDvYG2FAwJoACVmUQo2LPLdYUFjDNPdqw5HTOClAPTpTNs8YA FfAQVhNSFuAAdhQWSpIDBwTWB9KQTvZKOuDP6ELtLt ELIgIpKbSdAhGGAkMLRvyz4VKYAwHIFmRFEpJiGbYRPfTZSzRZkpUHZbYUElGAD3ZOYeWRJeBK3EUuLh ULAzXrYhOPRgCXXxAZRjjk9SCRMvZPNuWuM2QrHuAVKbFWUcUJxxAJVrUXYoYQZ7TMRdMODoBZ1KAeWx UYXpMsE3RtFrMARzMQJuph4WCPSaVOQbIeO1KADdUY UpZAOwGSsbHGKnDREyVYS1RNQfOJZxMD7JBuNtOOYwRaQqAbFyMNTbRFEdks3VEVFfYSUpKRgzIPJhQY IbLGZvNAxeEJFxKIT9SPJ8ETZaMCCdPO5BStYuOAPiAwO1XZMvHZZtAXOsce0FbRPlpMiama0TCRiISb 2BnRviNIH8VEliLd8lqIZfJJVlGHVAFv7DdnIzYTQz PBBHPWumATNtMJK3MAH7QFxmOzY7PCEfZSL8YZXaNzZ4YIR8SKTlCJAjRvM8GZw7ViN2STTaBKssCMU0 JuXhJhYnPmd4LDIcIZLoSpH+BM2dKWx+Rn9Eq9DnpoQ2ztVlINhlRlE0YT6KKLLUQ2VUSx== ID Date Data Source [id number] 09/25/2020 05:56:18 AM [facility] Value Range Interpretation Code Description Data Devi rce(s) Supporting Document(s) Leukocytes [#/volume] in Blood by Automated count 6.8 10*3/uL 4-10 [facility] Erythrocytes [#/volume] in Blood by Automated count 3.04 10*6/uL 4.6- 6.1 L [facility] Hemoglobin [Mass/volume] in Blood 9.6 g/dL 13.5-18 L [facility] Hematocrit [Volume Fraction] of Blood by Automated count 29.2 % 4 1-53 L [facility] Erythrocyte mean corpuscular volume [Entitic volume] by Auto mated count 95.9 fL 80-96 [facility] Erythrocyte mean corpuscular hemoglobin [Entitic mass] by Automated count 31.5 pg 27-33 [facility] Erythrocyte mean corpuscular hemoglobin concentration [Mass/volume] by Automated count 32.9 g/dL 32.0-36.0 [facility] width [Ratio] by Automated count 16.9 % 11.5-14.5 H [facility] Platelets [#/volume] in Blood by Automated count 143 10*3/uL 150-400 L [facility] ID Date Data Source [id number] 09/25/2020 06:12:26 AM [facility] Value Range Interpretation Code Description Data Devi rce(s) Supporting Document(s) Magnesium [Mass/volume] in Serum or Plasma 2.0 mg/dL 1.6-2.4 [facility] ID Date Data Source [id number] 09/25/2020 06:12:26 AM [facility] Value Range Interpretation Code Description Data Devi rce(s) Supporting Document(s) Phosphate [Mass/volume] in Serum or Plasma 3.2 mg/dL 2.5-4.5 [facility] ID Date Data Source [id number] 09/25/2020 06:12:26 AM [facility] Value Range Interpretation Code Description Data Devi rce(s) Supporting Document(s) Bicarbonate [Moles/volume] in Serum 18 mmol/L 22-29 L [facility] Chloride [Moles/volume] in Serum or Plasma 110 mmol/L 98-107 H [facility] Creatinine [Mass/volume] in Serum or Plasma 3.12 mg/dL 0.70-1.20 H [facility] Glucose [Mass/volume] in Serum or Plasma 164 mg/dL 70-140 H [facility] Potassium [Moles/volume] in Serum or Plasma 5.0 mmol/L 3.4-5.1 [facility] Sodium [Moles/volume] in Serum or Plasma 139 mmol/L 136-145 [facility] Urea nitrogen [Mass/volume] in Serum or Plasma 39 mg/dL 8-23 H [facility] Anion gap 3 in Serum or Plasma 11 mmol/L 8-15 [facility] Osmolality of Serum or Plasma by calculation 301 mosm/kg 275-300 H [facility] Creatinine/Urea nitrogen [Mass Ratio] in Serum or Plasma 13 [facility] Calcium [Mass/volume] in Serum or Plasma 8.0 mg/dL 8.8-10.2 [facility] Glomerular filtration rate/1.73 sq M pre dicted among non-blacks [Volume Rate/Area] in Serum or Plasma by Creatinine-based formula (MDRD) >6 0 [facility] Glomerular filtration rate/1.73 sq M pre dicted among blacks [Volume Rate/Area] in Serum or Plasma by Creatinine-based formula (MDRD) >60 [facility] ID Date Data Source [id number] 09/25/2020 05:21:31 AM [facility] Value Range Interpretation Code Description Data Devi rce(s) Supporting Document(s) Glucose [Mass/volume] in Capillary blood by Glucometer 162 mg/dL 70- 140 H [facility] ID Date Data Source [id number] 09/25/2020 04:29:14 AM [facility] Value Range Interpretation Code Description Data Devi rce(s) Supporting Document(s) Glucose [Mass/volume] in Capillary blood by Glucometer 181 mg/dL 70- 140 H [facility] ID Date Data Source [id number] 09/25/2020 03:50:10 AM [facility] Value Range Interpretation Code Description Data Devi rce(s) Supporting Document(s) Glucose [Mass/volume] in Capillary blood by Glucometer 177 mg/dL 70- 140 H [facility] ID Date Data Source [id number] 09/25/2020 03:19:58 AM [facility] Value Range Interpretation Code Description Data Devi rce(s) Supporting Document(s) Glucose [Mass/volume] in Capillary blood by Glucometer 197 mg/dL 70- 140 [facility] ID Date Data Source [id number] 09/25/2020 02:58:09 AM [facility] Value Range Interpretation Code Description Data Devi rce(s) Supporting Document(s) Glucose [Mass/volume] in Capillary blood by Glucometer 213 mg/dL 70- 140 [facility] ID Date Data Source [id number] 09/25/2020 12:52:24 AM [facility] Value Range Interpretation Code Description Data Devi rce(s) Supporting Document(s) Leukocytes [#/volume] in Blood by Automated count 6.8 10*3/uL 4-10 [facility] Erythrocytes [#/volume] in Blood by Automated count 3.21 10*6/uL 4.6- 6.1 [facility] Hemoglobin [Mass/volume] in Blood 10.1 g/dL 13.5-18 [facility] Hematocrit [Volume Fraction] of Blood by Automated count 31.3 % 4 1-53 [facility] Erythrocyte mean corpuscular volume [Entitic volume] by Auto mated count 97.5 fL 80-96 [facility] Erythrocyte mean corpuscular hemoglobin [Entitic mass] by Automated count 31.4 pg 27-33 [facility] Erythrocyte mean corpuscular hemoglobin concentration [Mass/volume] by Automated count 32.2 g/dL 32.0-36.0 [facility] E[facility] distribution width [Ratio] by Automated count 17.0 % 11.5-14.5 [facility] Platelets [#/volume] in Blood by Automated count 137 10*3/uL 150-400 [facility] ID Date Data Source [id number] 09/25/2020 01:14:57 AM [facility] Value Range Interpretation Code Description Data Devi rce(s) Supporting Document(s) Bicarbonate [Moles/volume] in Serum 19 mmol/L 22-29 [facility] Chloride [Moles/volume] in Serum or Plasma 111 mmol/L 98-107 H [facility] Creatinine [Mass/volume] in Serum or Plasma 3.02 mg/dL 0.70-1.20 H [facility] Glucose [Mass/volume] in Serum or Plasma 291 mg/dL 70-140 H [facility] Potassium [Moles/volume] in Serum or Plasma 5.7 mmol/L 3.4-5.1 H [facility] Sodium [Moles/volume] in Serum or Plasma 137 mmol/L 136-145 [facility] Urea nitrogen [Mass/volume] in Serum or Plasma 38 mg/dL 8-23 H [facility] Anion gap 3 in Serum or Plasma 7 mmol/L 8-15 L [facility] Osmolality of Serum or Plasma by calculation 304 mosm/kg 275-300 H [facility] Creatinine/Urea nitrogen [Mass Ratio] in Serum or Plasma 13 [facility] Calcium [Mass/volume] in Serum or Plasma 7.8 mg/dL 8.8-10.2 L [facility] Glomerular filtration rate/1.73 sq M pre dicted among non-blacks [Volume Rate/Area] in Serum or Plasma by Creatinine-based formula (MDRD) >6 0 [facility] Glomerular filtration rate/1.73 sq M pre dicted among blacks [Volume Rate/Area] in Serum or Plasma by Creatinine-based formula (MDRD) >60 [facility] ID Date Data Source [id number] 09/25/2020 01:14:57 AM [facility] Value Range Interpretation Code Description Data Devi rce(s) Supporting Document(s) Magnesium [Mass/volume] in Serum or Plasma 1.7 mg/dL 1.6-2.4 [facility] ID Date Data Source [id number] 09/25/2020 01:14:57 AM [facility] Value Range Interpretation Code Description Data Devi rce(s) Supporting Document(s) Phosphate [Mass/volume] in Serum or Plasma 2.9 mg/dL 2.5-4.5 [facility] ID Date Data Source [id number] 09/25/2020 12:31:05 AM [facility] Value Range Interpretation Code Description Data Devi rce(s) Supporting Document(s) Glucose [Mass/volume] in Capillary blood by Glucometer 210 mg/dL 70- 140 H [facility] ID Date Data Source [id number] 09/24/2020 11:15:40 PM [facility] Value Range Interpretation Code Description Data Devi rce(s) Supporting Document(s) Glucose [Mass/volume] in Capillary blood by Glucometer 223 mg/dL 70- 140 H [facility] ID Date Data Source [id number] 09/24/2020 10:27:00 PM EST [facility] Name Value Range Interpretation Code Description Data Devi rce(s) Supporting Document(s) SARS-CoV-2 RNA 2019 nCoV Real-Time RT-PCR: NOT DETECTED [facility] This lab was ordered by [facility] and reported by [facility]. ID Date Data Source [id number] 09/25/2020 11:51:03 AM [facility] Value Range Interpretation Code Description Data Devi rce(s) Supporting Document(s) Specimen source [Identifier] of Unspecified specimen [facility] SARS-CoV-2 RNA 2019 nCoV Real-Time RT-PCR: NOT DETECTED [facility] Assay Performed [facility] Patients first test for [facility] Patient employed in healthcare setting [facility] Patient has symptoms related to [facility] When did you start to experience these symptoms [Date and time] [Phen X] [facility] Patient was hospitalized because of this [facility] patient was admitted to ICU for [facility] Patient resides in a congregate care setting [facility] status [facility] ID Date Data Source [id number] 09/24/2020 10:25:52 PM [facility] Value Range Interpretation Code Description Data Devi rce(s) Supporting Document(s) Glucose [Mass/volume] in Capillary blood by Glucometer 158 mg/dL 70- 140 [facility] ID Date Data Source [id number] 09/24/2020 09:50:51 PM [facility] Value Range Interpretation Code Description Data Devi rce(s) Supporting Document(s) Glucose [Mass/volume] in Capillary blood by Glucometer 126 mg/dL 70- 140 [facility] ID Date Data Source [id number] 09/24/2020 09:08:30 PM EST [facility] Name Value Range Interpretation Code Description Data Edvi rce(s) Supporting Document(s) Glucose [Mass/volume] in Capillary blood by Glucometer 122 mg/dL 70- 140 [facility] ID Date Data Source [id number] 09/24/2020 08:28:35 PM [facility] Value Range Interpretation Code Description Data Devi rce(s) Supporting Document(s) Glucose [Mass/volume] in Capillary blood by Glucometer 113 mg/dL 70- 140 [facility] ID Date Data Source [id number] 09/24/2020 07:27:05 PM [facility] Value Range Interpretation Code Description Data Devi rce(s) Supporting Document(s) Leukocytes [#/volume] in Blood by Automated count 5.5 10*3/uL 4-10 [facility] Erythrocytes [#/volume] in Blood by Automated count 3.47 10*6/uL 4.6- 6.1 L [facility] Hemoglobin [Mass/volume] in Blood 11.0 g/dL 13.5-18 L [facility] Hematocrit [Volume Fraction] of Blood by Automated count 33.4 % 4 1-53 [facility] Erythrocyte mean corpuscular volume [Entitic volume] by Auto mated count 96.1 fL 80-96 [facility] Erythrocyte mean corpuscular hemoglobin [Entitic mass] by Automated count 31.5 pg 27-33 [facility] Erythrocyte mean corpuscular hemoglobin concentration [Mass/volume] by Automated count 32.8 g/dL 32.0-36.0 [facility] E[facility]th[facility] distribution width [Ratio] by Automated count 16.9 % 11.5-14.5 [facility] Platelets [#/volume] in Blood by Automated count 138 10*3/uL 150-400 L [facility] ID Date Data Source [id number] 09/24/2020 07:58:22 PM [facility] Value Range Interpretation Code Description Data Devi rce(s) Supporting Document(s) Thyroxine (T4) free [Mass/volume] in Serum or Plasma 1.11 ng/dL 0.93- 1.70 [facility] ID Date Data Source [id number] 09/24/2020 07:58:22 PM [facility] Value Range Interpretation Code Description Data Devi rce(s) Supporting Document(s) Bicarbonate [Moles/volume] in Serum 18 mmol/L 22-29 L [facility] Chloride [Moles/volume] in Serum or Plasma 113 mmol/L 98-107 H [facility] Creatinine [Mass/volume] in Serum or Plasma 2.97 mg/dL 0.70-1.20 H [facility] Glucose [Mass/volume] in Serum or Plasma 92 mg/dL 70-140 [facility] Potassium [Moles/volume] in Serum or Plasma 5.7 mmol/L 3.4-5.1 H [facility] Sodium [Moles/volume] in Serum or Plasma 142 mmol/L 136-145 [facility] Urea nitrogen [Mass/volume] in Serum or Plasma 39 mg/dL 8-23 H [facility] Anion gap 3 in Serum or Plasma 11 mmol/L 8-15 [facility] Osmolality of Serum or Plasma by calculation 303 mosm/kg 275-300 H [facility] Creatinine/Urea nitrogen [Mass Ratio] in Serum or Plasma 13 [facility] Calcium [Mass/volume] in Serum or Plasma 8.6 mg/dL 8.8-10.2 L [facility] Glomerular filtration rate/1.73 sq M pre dicted among non-blacks [Volume Rate/Area] in Serum or Plasma by Creatinine-based formula (MDRD) >6 0 [facility] Glomerular filtration rate/1.73 sq M pre dicted among blacks [Volume Rate/Area] in Serum or Plasma by Creatinine-based formula (MDRD) >60 [facility] ID Date Data Source [id number] 09/24/2020 07:58:22 PM [facility] Value Range Interpretation Code Description Data Devi rce(s) Supporting Document(s) Phosphate [Mass/volume] in Serum or Plasma 3.2 mg/dL 2.5-4.5 [facility] ID Date Data Source [id number] 09/24/2020 07:58:22 PM [facility] Value Range Interpretation Code Description Data Devi rce(s) Supporting Document(s) Magnesium [Mass/volume] in Serum or Plasma 1.3 mg/dL 1.6-2.4 [facility] ID Date Data Source [id number] 09/24/2020 07:58:22 PM [facility] Value Range Interpretation Code Description Data Devi rce(s) Supporting Document(s) Triiodothyronine (T3) Free [Mass/volume] in Serum or Plasma 1.67 pg/mL 2.00-4.40 L [facility] ID Date Data Source [id number] 09/24/2020 07:58:22 PM [facility] Name Value Range Interpretation Code Description Data Devi rce(s) Supporting Document(s) Natriuretic peptide.B prohormone N-Terminal [Mass/volume] in Serum or Plasma <450 H [facility] ID Date Data Source [id number] 09/24/2020 07:52:55 PM [facility] Name Value Range Interpretation Code Description Data Devi rce(s) Supporting Document(s) Hemoglobin A1c/Hemoglobin.total in Blood by HPLC 5.1 % 4.0-6.0 [facility] (NOTE)<5.7% Average risk of diabetes (ADA)5.7-6.4% Increased risk of diabetes(ADA)>/= 6.5% Diagnostic for diabetes(ADA) Glucose mean value [Mass/volume] in Blood Estimated fr om glycated hemoglobin 99 mg/dL <126 [facility] ID Date Data Source [id number] 09/24/2020 06:53:20 PM [facility] Name Value Range Interpretation Code Description Data Devi rce(s) Supporting Document(s) Glucose [Mass/volume] in Capillary blood by Glucometer 83 mg/dL 70- 140 [facility] ID Date Data Source [id number] 09/24/2020 01:36:00 PM EST [facility] Name Value Range Interpretation Code Description Data Devi rce(s) Supporting Document(s) SARS coronavirus 2 RNA [Presence] in Res piratory specimen by BEKA with probe detection NEGATIVE [facility] This lab was ordered by [facility] a nd reported by [facility]. ID Date Data Source [id number] 09/02/2020 05:29:15 PM EST [facility] Name Value Range Interpretation Code Description Data Devi rce(s) Supporting Document(s) &PDF [facility] CGUAIi5vSoLAIjJt63/APLnaNIOix6PwUYbrSTu5EQkvRAXjY1RabAxiRW9XU7JHQHbGAAzEFK8wFJXp oRX [file] AgICAgICAgICAgICAgICAgICAgICAgICAgICAgICAg ICAgICAgICAgICAgICAgICAgICAgICAgICAgICAgICAgICAgICAgICAgICAgICAgICAgICAgICAgICAg ICAgICAgICANCiAgICAgICAgICAgICAgICAgICAgICAgICAgICAgICAgICAgICAgICAgICAgICAgICAg ICAgICAgICAgICAgICAgICAgICAgICAgICAgICAgIC AgICAgICAgICAgICAgICAgICANCiAgICAgICAgICAgICAgICAgICAgICAgICAgICAgICAgICAgICAgIC AgICAgICAgICAgICAgICAgICAgICAgICAgICAgICAgICAgICAgICAgICAgICAgICAgICAgICAgICAgIC ANCiAgICAgICAgICAgICAgICAgICAgICAgICAgICAg ICAgICAgICAgICAgICAgICAgICAgICAgICAgICAgICAgICAgICAgICAgICAgICAgICAgICAgICAgICAg ICAgICAgICAgICANCiAgICAgICAgICAgICAgICAgICAgICAgICAgICAgICAgICAgICAgICAgICAgICAg ICAgICAgICAgICAgICAgICAgICAgICAgICAgICAgIC AgICAgICAgICAgICAgICAgICAgICANCiAgICAgICAgICAgICAgICAgICAgICAgICAgICAgICAgICAgIC AgICAgICAgICAgICAgICAgICAgICAgICAgICAgICAgICAgICAgICAgICAgICAgICAgICAgICAgICAgIC AgICANCiAgICAgICAgICAgICAgICAgICAgICAgICAg ICAgICAgICAgICAgICAgICAgICAgICAgICAgICAgICAgICAgICAgICAgICAgICAgICAgICAgICAgICAg ICAgICAgICAgICAgICANCiAgICAgICAgICAgICAgICAgICAgICAgICAgICAgICAgICAgICAgICAgICAg ICAgICAgICAgICAgICAgICAgICAgICAgICAgICAgIC AgICAgICAgICAgICAgICAgICAgICAgICANCiAgICAgICAgICAgICAgICAgICAgICAgICAgICAgICAgIC AgICAgICAgICAgICAgICAgICAgICAgICAgICAgICAgICAgICAgICAgICAgICAgICAgICAgICAgICAgIC AgICAgICANCiAgICAgICAgICAgICAgICAgICAgICAg ICAgICAgICAgICAgICAgICAgICAgICAgICAgICAgICAgICAgICAgICAgICAgICAgICAgICAgICAgICAg ICAgICAgICAgICAgICAgICANCjw/dRZeH5kfzAGwqgS9F5wiCd1IQk0ZOM6px1SgNLCxAYdajaOxCcnU ScQyRPXtPgnRHad8RXnmRY1XeXCaR9QaZ2KeBEfdRA 5LCFDoKKJpuHEaDESnNVNkEfZ6TSFkFKwnIF0MjXXmCRquDMRbKJYdUlJhCEDkUA1CGQUyF596vlWsXg 0LHl0HKjWhZE5vcr0SRzGnOMYfOgkVHhj4DCrxJR2KqJYvG6CkbYFjn8rBRhFsN3CJUTT0BZUgRe1LPR PpDsYcZVYqPFvxUW4sNHVzEUUJsVdxloU7CQ5JEQ9q ojPxWP8KSsTwDa8eFj5QEiIwV9IbO2DqLQRiSOPUDLuxFX8DFTEvSFR1ZMNqNRCuAUGGKbAaZ89wWJ4C B5Dtv60oDtE3DKJoMgZmGXmbBX59pHziqmZqcUKbvBikJB9JDe5+DQplbmRvYmoNCnhyZWYNCjAgMjIN OrYhBMEzYPRoYMEvNfM9McFlPn0ARWTiNMYnPBYuBs GlHYOrGPOgVIguFOJeBTX0PfhaPAPhXBKjWQ0QQaVtXSGqPmM5TnMnBBBpTFJbby3MNXVyLNWpVQE7BO XjAOToTBQkRMdrEJZvTZUoBPJ6TZDwVPCkMX0RZdNuPIEySHL2WMXoWJMsNOXxku5TJYOjLDTgKNriGC HaJCMpVTAjXHgsGLZsIMY2AAHqJDLoWRLdMB8WAiBf NABfJHK5DdGlJMNkMKHrja9UJWUzRNZiBtF2RzIsQXZtWBFbZLnkCHGtLAV1KkP7XKOqUINtQI2BWwGk IHDfFGrdXJbaTLOcKKUnco6DUWEhXTOmXMNyIDWyCZSkGQLvYZsoBQFoTRJ9LGo4WGOqGTRuME5AKyMr TOKjXNv6VZFkEASoDHUayy1MYZCcRFNdLFm4BbZqZM ZiYRYmKBlvCAFxRYA6DLGiNZAeRDIsAM1DEeAbCTFjMID3YuQuMHMnPPVbjm9EKRXfPIQoQAP1ZZCiUR TeRIRyHIwoFFDfMMR4EGpyUMQjYOZmZQ5BKoIfVENvSlD5ClMfGRPpFNVhfo5EvEBtePptyl2SMOeWPg 3NvCvrCZEbABftBl2cxYBoBFBuJTYRYg9IgoPbKNEx IXQHOUepPEJsRPN3OLV7BVNqWrJdAsWyTbJ4JiIoOgIfCpJkJDMzKLEiQbA3JRN5ZPPlBLUdADArGVTk Txb0G3ZqAZH4XjXuTRH8PGB+CE5pKBu+Zo9Qa7MrlhA8ryEmIZtlWEiwKg8HXDODE4AFMw== ID Date Data Source [id number] 07/26/2020 04:04:[address] [facility] ([facility]) Name Value Range Interpretation Code Description Data Devi rce(s) Supporting Document(s) CPK Creatine Phosphokinase 167 U/L 39-308 Kailee l (applies to non-numeric results) [facility] ([facility]) MB/CK Relative Index 3.11 Normal (applies to non-num jerrod results) [facility] ([facility]) <content>DIAGNOSIS CRITERIA</content>
<content>MMB ng/ml Relative Index (RI)</content>
<content>NON-AMI < or = 5 N/A</content>
<content>[place] ZONE > 5 < or = 4</content>
<content>AMI > 5 > 4</content>
<content></content> CK-MB Value Mass 5.2 ng/mL Above high normal [facility] ([facility]) Troponin I 0.04 ng/mL Significant change down [facility] ([facility]) <content>Troponin I Reference Interval f or Siemens [place] LOCI:</content>
<content></content>
<content>99th Percentile= 0.00-0.045 ng/ml</content>
<content></content>
<content>Risk Stratification:</content>
<content><= 0.10 ng/ml Decreased Risk for Adverse Clinical</content>
<content>Events.</content>
<content>0.10-1.50 ng/ml Increased Risk for Adverse Clinical</content>
<content>Events. Evaluation of additional</content>
<content>criterion and/or repeat testing in 2-6</content>
<content>hours is suggested to rule out myocardial</content>
<content>damage.</content>
<content>>= 1.50 ng/ml Indicative of Myocardial Injury.</content>
<content></content> ID Date Data Source [id number] 07/26/2020 01:12:00 PM EST [facility] ([facility]) Name Value Range Interpretation Code Description Data Devi rce(s) Supporting Document(s) Lipase [Enzymatic activity/volume] in Serum or Plasma 158 U/L 73-393 Normal (applies to non-numeric results) [facility] ([facility]) Natriuretic peptide.B prohormone N-Terminal [Mass/volu me] in Serum or Plasma 2213 pg/mL Above high normal [facility] ([facility]) Thyrotropin [Units/volume] in Serum or Plasma 5.180 uIU/ML 0. 358-3.[address] [facility] ([facility]) ID Date Data Source [id number] 07/26/2020 01:12:00 PM EST [facility] ([facility]) Name Value Range Interpretation Code Description Data Devi rce(s) Supporting Document(s) Glucose, Fasting 110 mg/dL 70-100 Above high normal [facility]) Blood Urea Nitrogen 61 mg/dL 7-[address] [facility] ([facility]) Creatinine For GFR 3.31 mg/dL 0.70-1.[address] [facility] ([facility]) Glomerular Filtration Rate 18.[address] [facility] ([facility]) <content>Units are mL/min/1.73 m2</content>
<content></content>
<content>Chronic Kidney Disease Staging per NKF:</content>
<content></content>
<content>Stage I & II GFR >=60 Normal to Mildly Decreased</content>
<content>Stage III GFR 30- 59 Moderately Decreased</content>
<content>Stage IV GFR 15-29 Severely Decreased</content>
<content>Stage V GFR <15 Very Little GFR Left</content>
<content>ESRD GFR <15 on FLEET DISPATCH MANAGER</content>
<content></content> Sodium Level 137 meq/L 136-145 Normal (applies to non-numeric res ults) [facility] ([facility]) Chloride Level 106 meq/L 98-107 Normal (applies to non-numeric r esults) [facility] ([facility]) Potassium Serum 4.7 meq/L 3.5-5.1 Normal (applies to non-numeric results) [facility] Carbon Dioxide Level 28 meq/L 21-32 Normal (applies to non-num jerrod results) [facility] ([facility]) Anion Gap 3 meq/L 8-[address] [facility] ([facility]) Calcium Level 8.2 mg/dL 8.8-10.2 Below low normal [facility] ([facility]) ID Date Data Source [id number] 07/26/2020 01:12:[address] [facility] ([facility]) Name Value Range Interpretation Code Description Data Devi rce(s) Supporting Document(s) Ast/Sgot 27 U/L 7-37 Normal (applies to non-numeric resul ts) [facility] ([facility]) Alt/SGPT 29 U/L 12-78 Normal (applies to non-numeric resul ts) [facility] ([facility]) Bilirubin,Total 0.3 mg/dL 0.2-1.0 Normal (applies to non-numeric results) [facility] ([facility]) Alkaline Phosphatase 88 U/L 45-117 Normal (applies to non-num jerrod results) [facility] ([facility]) Total Protein 6.0 GM/DL 6.4-8.2 Below low normal [facility] ([facility]) Bilirubin,Direct 0.1 mg/dL 0.0-0.2 Normal (applies to non-numeric results) [facility] ([facility]) Albumin 2.9 GM/DL 3.2-5.[address] [facility] ([facility]) Albumin/Globulin Ratio 0.9 Normal (applies to non-n umeric results) [facility] ([facility]) ID Date Data Source [id number] 07/26/2020 01:12:00 PM EST [facility] ([facility]) Name Value Range Interpretation Code Description Data Devi rce(s) Supporting Document(s) CK-MB Value Mass 5.2 ng/mL Above high normal [facility] ([facility]) CPK Creatine Phosphokinase 165 U/L 39-308 Kailee l (applies to non-numeric results) [facility] ([facility]) Troponin I 0.03 ng/mL Normal (applies to non-numeric resul ts) [facility] ([facility]) <content>Troponin I Reference Interval f or Siemens [place] LOCI:</content>
<content></content>
<content>99th Percentile= 0.00-0.045 ng/ml</content>
<content></content>
<content>Risk Stratification:</content>
<content><= 0.10 ng/ml Decreased Risk for Adverse Clinical</content>
<content>Events.</content>
<content>0.10-1.50 ng/ml Increased Risk for Adverse Clinical</content>
<content>Events. Evaluation of additional</content>
<content>criterion and/or repeat testing in 2-6</content>
<content>hours is suggested to rule out myocardial</content>
<content>damage.</content>
<content>>= 1.50 ng/ml Indicative of Myocardial Injury.</content>
<content></content> MB/CK Relative Index 3.15 Normal (applies to non-num jerrod results) [facility] ([facility]) <content>DIAGNOSIS CRITERIA</content>
<content>MMB ng/ml Relative Index (RI)</content>
<content>NON-AMI < or = 5 N/A</content>
<content>[place] ZONE > 5 < or = 4</content>
<content>AMI > 5 > 4</content>
<content></content> ID Date Data Source [id number] 07/26/2020 01:12:00 PM EST [facility] ([facility]) Name Value Range Interpretation Code Description Data Devi rce(s) Supporting Document(s) aPTT in Platelet poor plasma by Coagulation assay 26.5 s 24.2-38.5 Normal (applies to non-numeric results) [facility] ([facility]) ID Date Data Source [id number] 07/26/2020 01:12:00 PM EST [facility] ([facility]) Name Value Range Interpretation Code Description Data Devi rce(s) Supporting Document(s) Prothrombin Time 13.0 s 12.5-14.3 Normal (applies to non-numeric results) [facility] ([facility]) Inr 0.96 Normal (applies to non-numeric resul ts) [facility] ([facility]) THERAPUTIC HUMAN INR VALUES INDICATIONS NORMAL RANGES PROPHYLAXIS/TREATMENT OF: VENOUS THROMBOSIS 2.0-3.0 PULMONARY EMBOLISM 2.0-3.0 PREVENTION OF SYSTEMIC EMBOLISM FROM: TISSUE HEART VALVES 2.0-3.0 ACUTE MYOCARDIAL INFARCTION 2.0-3.0 VALVULAR HEART DISEASE 2.0-3.0 ATRIAL FIBRILLATION 2.0-3.0 MECHANICAL VALVES(HIGH RISK) 2.5-3.5 RECURRENT MYOCARDIAL INFARCTION 2.5-3.5 ID Date Data Source [id number] 07/26/2020 01:12:00 PM EST [facility] Name Value Range Interpretation Code Description Data Devi rce(s) Supporting Document(s) White Blood Count 4.8 10 4.0-10.0 Normal (applies to non-numeri c results) [facility] ([facility]) Hemoglobin 11.5 g/dL 13.5-17.5 Below low normal [facility]) Red Blood Count 3.83 10 4.30-6.10 Below low normal [facility] ([facility]) Hematocrit 36.0 % 42.0-52.[address] [facility] ([facility]) Mean Corpuscular Volume 94.0 fl 80.0-96.0 Normal ( applies to non-numeric results) [facility] ([facility]) Mean Corpuscular HGB Conc 31.9 g/dL 32.0-36.5 Below low normal [facility]) Mean Corpuscular Hemoglobin 30.0 pg 27.0-33.0 Norm al (applies to non-numeric results) [facility]) Red Cell Distribution Width 14.1 % 11.5-14.5 Norm al (applies to non-numeric results) [facility] ([facility]) Platelet Count, Automated 170 10 150-450 Normal (applies to non-numeric results) [facility] ([facility]) Neutrophils % 72.5 % 36.0-66.0 Above high normal [facility] ([facility]) Lymph % 17.6 % 24.0-44.0 Below low normal [facility] Eos % 2.7 % 0.0-3.0 Normal (applies to non-numeric resul ts) [facility] ([facility]) Callahan % 6.6 % 0.0-5.0 Above high normal [facility] ([facility]) Baso % 0.4 % 0.0-1.0 Normal (applies to non-numeric resul ts) [facility] ([facility]) Nucleated Red Blood Cell % 0.0 % 0-0 Normal (applies to n on-numeric results) [facility] ([facility]) Immature Granulocyte % 0.2 % 0-3.0 Normal (applies to non-n umeric results) [facility] ([facility]) Neutrophils # 3.5 10 1.5-8.5 Normal (applies to non-numeric re sults) [facility] ([facility]) Lymph # 0.9 10 1.5-5.0 Below low normal [facility] ([facility]) Callahan # 0.3 10 0.0-0.8 Normal (applies to non-numeric resul ts) [facility] ([facility]) Eos # 0.1 10 0.0-0.5 Normal (applies to non-numeric resul ts) [facility] ([facility]) Baso # 0.0 10 0.0-0.2 Normal (applies to non-numeric resul ts) [facility] ([facility]) ID Date Data Source [id number] 06/16/2020 08:41:00 AM EDT [facility] ([facility]) Name Value Range Interpretation Code Description Data Devi rce(s) Supporting Document(s) Natriuretic peptide.B prohormone N-Terminal [Mass/volu me] in Serum or Plasma 6362 pg/mL Above high normal [facility] ([facility]) ID Date Data Source [id number] 06/16/2020 08:41:00 AM EDT [facility] ([facility]) Name Value Range Interpretation Code Description Data Devi rce(s) Supporting Document(s) Glucose, Fasting 92 mg/dL 70-100 Normal (applies to non-numeric results) [facility] ([facility]) Blood Urea Nitrogen 56 mg/dL 7-18 Above high normal [facility] ([facility]) Creatinine For GFR 3.05 mg/dL 0.70-1.30 Above high normal [facility] ([facility]) Sodium Level 138 meq/L 136-145 Normal (applies to non-numeric res ults) [facility] ([facility]) Glomerular Filtration Rate 20.8 Below low normal [facility] <content>Units are mL/min/1.73 m2</content>
<content></content>
<content>Chronic Kidney Disease Staging per NKF:</content>
<content></content>
<content>Stage I & II GFR >=60 Normal to Mildly Decreased</content>
<content>Stage III GFR 30- 59 Moderately Decreased</content>
<content>Stage IV GFR 15-29 Severely Decreased</content>
<content>Stage V GFR <15 Very Little GFR Left</content>
<content>ESRD GFR <15 on FLEET DISPATCH MANAGER</content>
<content></content> Chloride Level 102 meq/L 98-107 Normal (applies to non-numeric r esults) [facility] ([facility]) Carbon Dioxide Level 30 meq/L 21-32 Normal (applies to non-num jerrod results) [facility] ([facility]) Potassium Serum 4.4 meq/L 3.5-5.1 Normal (applies to non-numeric results) [facility] ([facility]) Anion Gap 6 meq/L 8-16 Below low normal [facility]) Calcium Level 8.5 mg/dL 8.8-10.2 Below low normal [facility] ([facility]) Alt/SGPT 26 U/L 12-78 Normal (applies to non-numeric resul ts) [facility] ([facility]) Ast/Sgot 22 U/L 7-37 Normal (applies to non-numeric resul ts) [facility] ([facility]) Alkaline Phosphatase 80 U/L 45-117 Normal (applies to non-num jerrod results) [facility] ([facility]) Bilirubin,Total 0.4 mg/dL 0.2-1.0 Normal (applies to non-numeric results) [facility] ([facility]) Total Protein 6.5 GM/DL 6.4-8.2 Normal (applies to non-numeric re sults) [facility] ([facility]) Albumin 3.2 GM/DL 3.2-5.2 Normal (applies to non-numeric resul ts) [facility] ([facility]) Albumin/Globulin Ratio 1.0 Normal (applies to non-n umeric results) [facility] ([facility]) ID Date Data Source [id number] 06/16/2020 08:41:00 AM EDT [facility] ([facility]) Name Value Range Interpretation Code Description Data Devi rce(s) Supporting Document(s) White Blood Count 4.7 10 4.0-10.0 Normal (applies to non-numeri c results) [facility] ([facility]) Red Blood Count 3.89 10 4.30-6.10 Below low normal [facility] ([facility]) Hemoglobin 11.6 g/dL 13.5-17.5 Below low normal [facility] ( [facility]) Mean Corpuscular Volume 96.9 fl 80.0-96.0 Above high normal [facility] ([facility]) Hematocrit 37.7 % 42.0-52.0 Below low normal [facility] ([facility]) Mean Corpuscular HGB Conc 30.8 g/dL 32.0-36.5 Below low normal [facility] ([facility]) Mean Corpuscular Hemoglobin 29.8 pg 27.0-33.0 Norm al (applies to non-numeric results) [facility] ([facility]) Platelet Count, Automated 149 10 150-450 Below low normal [facility] ([facility]) Red Cell Distribution Width 13.0 % 11.5-14.5 Norm al (applies to non-numeric results) [facility] ([facility]) Lymph % 19.9 % 24.0-44.0 Below low normal [facility] Neutrophils % 68.6 % 36.0-66.0 Above high normal [facility] ([facility]) Callahan % 6.4 % 0.0-5.0 Above high normal [facility]) Eos % 4.1 % 0.0-3.0 Above high normal [facility] ([facility]) Baso % 0.4 % 0.0-1.0 Normal (applies to non-numeric resul ts) [facility] ([facility]) Immature Granulocyte % 0.6 % 0-3.0 Normal (applies to non-n umeric results) [facility] ([facility]) Nucleated Red Blood Cell % 0.0 % 0-0 Normal (applies to n on-numeric results) [facility] ([facility]) Lymph # 0.9 10 1.5-5.0 Below low normal [facility] ([facility]) Neutrophils # 3.2 10 1.5-8.5 Normal (applies to non-numeric re sults) [facility] ([facility]) Eos # 0.2 10 0.0-0.5 Normal (applies to non-numeric resul ts) [facility] ([facility]) Callahan # 0.3 10 0.0-0.8 Normal (applies to non-numeric resul ts) [facility] ([facility]) Baso # 0.0 10 0.0-0.2 Normal (applies to non-numeric resul ts) [facility] ([facility]) ID Date Data Source [id number] 06/04/2020 09:26:00 AM EDT [facility] ([facility]) Name Value Range Interpretation Code Description Data Devi rce(s) Supporting Document(s) Blood Urea Nitrogen 41 mg/dL 7-18 Above high normal [facility] ([facility]) Glucose, Fasting 91 mg/dL 70-100 Normal (applies to non-numeric results) [facility] ([facility]) Glomerular Filtration Rate 21.4 Below low normal [facility] ([facility]) <content>Units are mL/min/1.73 m2</content>
<content></content>
<content>Chronic Kidney Disease Staging per NKF:</content>
<content></content>
<content>Stage I & II GFR >=60 Normal to Mildly Decreased</content>
<content>Stage III GFR 30- 59 Moderately Decreased</content>
<content>Stage IV GFR 15-29 Severely Decreased</content>
<content>Stage V GFR <15 Very Little GFR Left</content>
<content>ESRD GFR <15 on FLEET DISPATCH MANAGER</content>
<content></content> Sodium Level 137 meq/L 136-145 Normal (applies to non-numeric res ults) [facility] ([facility]) Creatinine For GFR 2.97 mg/dL 0.70-1.30 Above high normal [facility] ([facility]) Potassium Serum 4.4 meq/L 3.5-5.1 Normal (applies to non-numeric results) [facility] ([facility]) Chloride Level 100 meq/L 98-107 Normal (applies to non-numeric r esults) [facility] ([facility]) Anion Gap 5 meq/L 8-16 Below low normal [facility]) Calcium Level 8.0 mg/dL 8.8-10.2 Below low normal [facility] ([facility]) Carbon Dioxide Level 32 meq/L 21-32 Normal (applies to non-num jerrod results) [facility] ([facility]) Procedure Social History Code Duration Value Status Description Data Source(s ) Smoking 05/31/2021 12:00:00 AM EDT Former Smoker completed Former Smoker eCW1 ([facility]) Smoking 05/31/2021 12:00:00 AM EDT Former Smoker completed Former Smoker eC1 ([facility]) Alcohol intake 01/04/2021 12:00:00 AM EDT Current drinker of al cohol (finding) completed Current drinker of alcohol (finding) [facility] Alcohol intake 11/30/2020 12:00:00 AM EDT Yes completed [facility] Smoking 11/30/2020 12:00:00 AM EDT Former smoker completed Former smoker [facility] Alcohol intake 10/20/2020 12:00:00 AM EST Yes completed [facility] Smoking 10/20/2020 12:00:00 AM EST Former smoker completed Former smoker [facility] Alcohol intake 10/14/2020 12:00:00 AM EST Yes completed [facility] Smoking 10/14/2020 12:00:00 AM EST Former smoker completed Former smoker [facility] Alcohol intake 10/10/2020 12:00:00 AM EST Yes completed [facility] Smoking 10/10/2020 12:00:00 AM EST Former smoker completed Former smoker [facility] Smoking 09/27/2020 12:00:00 AM EST Unknown if ever smoked comp leted Unknown if ever smoked [facility] Alcohol intake 09/01/2020 12:00:00 AM EST Yes completed [facility] Smoking 09/01/2020 12:00:00 AM EST Former smoker completed Former smoker [facility] Tobacco use and exposure 06/07/2020 12:00:00 AM EDT Never used co mpleted Never used [facility] Smoking 06/07/2020 12:00:00 AM EDT Former smoker completed Former smoker [facility] Alcohol intake 06/07/2020 12:00:00 AM EDT Yes completed [facility] Smoking 06/07/2020 12:00:00 AM EDT Former smoker completed Former smoker [facility] Vital Signs ID Date Data Source UNK Name Value Range Interpretation Code Description Data Source(s) Body weight 157 [lb_av] 157 [lb_av] W1 ([facility]) Body height 68 [in_i] 68 [in_i] eCW1 ([facility]) Body mass index (BMI) [Ratio] 23.87 kg/m2 23.87 kg/m2 W1 ([facility]) Heart rate 120 /min 120 /min eCW1 ([facility]) Respiratory rate 18 /min 18 /min W1 ([facility]) Body temperature 96.6 [degF] 96.6 [degF] eCW1 ( [facility]) Systolic blood pressure 136 mm[Hg] 136 mm[Hg] e CW1 ([facility]) Diastolic blood pressure 78 mm[Hg] 78 mm[Hg] eCW1 ([facility]) Body height 68.00 [in_i] 68.00 [in_i] [place] ([facility]) 5'8" Body weight 157.12 [lb_av] 157.12 [lb_av] [facility] ([facility]) Body mass index (BMI) [Ratio] 23.9 kg/m2 23.9 k g/m2 [facility] ([facility]) Systolic blood pressure 120 mm[Hg] 120 mm[Hg] [facility] ([facility]) Diastolic blood pressure 70 mm[Hg] 70 mm[Hg] [facility] ([facility]) Heart rate 60 /min 60 /min [facility] ([facility]) Body temperature 98.6 [degF] 98.6 [degF] [facility] ([facility]) Body temperature 37.0 Kemi 37.0 Kemi [facility] ( [facility]) Oxygen saturation in Arterial blood by Pulse oximetry 99 % 99 % [facility] ([facility]) Oxygen saturation in Arterial blood by Pulse oximetry 97 % 97 % [facility] ([facility]) Body temperature 37.0 Kemi 37.0 Kemi [facility] ( [facility]) Heart rate 78 /min 78 /min [facility] ([facility]) Body temperature 98.6 [degF] 98.6 [degF] [facility] ([facility]) Body height 68.00 [in_i] 68.00 [in_i] [facility] ([facility] 5'8" Systolic blood pressure 120 mm[Hg] 120 mm[Hg] [facility] Diastolic blood pressure 78 mm[Hg] 78 mm[Hg] [facility] ([facility]) Systolic blood pressure 130 mm[Hg] 130 mm[Hg] [facility] Diastolic blood pressure 70 mm[Hg] 70 mm[Hg] [facility] Heart rate 61 /min 61 /min [facility] Body height 172.7 cm 172.7 cm [facility] Body weight 68.947 kg 68.947 kg [facility] Body mass index (BMI) [Ratio] 23.11 kg/m2 23.11 kg/m2 [facility] Oxygen saturation in Arterial blood by Pulse oximetry 96 % 96 % [facility] Systolic blood pressure 130 mm[Hg] 130 mm[Hg] [facility] ([facility]) Heart rate 66 /min 66 /min [facility] ([facility]) Body height 68.00 [in_i] 68.00 [in_i] [facility] ([facility]) 5'8" Body weight 154.50 [lb_av] 154.50 [lb_av] [facility] ([facility]) Body mass index (BMI) [Ratio] 23.5 kg/m2 23.5 k g/m2 [facility] ([facility]) Diastolic blood pressure 70 mm[Hg] 70 mm[Hg] [facility] ([facility]) Body temperature 97.8 [degF] 97.8 [degF] [facility] ([facility]) Body temperature 36.6 Kemi 36.6 Kemi [facility] ( [facility]) Oxygen saturation in Arterial blood by Pulse oximetry 98 % 98 % [facility] ([facility]) Systolic blood pressure 170 mm[Hg] 170 mm[Hg] [facility] Diastolic blood pressure 70 mm[Hg] 70 mm[Hg] [facility] Heart rate 71 /min 71 /min [facility] Body height 172.7 cm 172.7 cm [facility] Body weight 70.308 kg 70.308 kg [facility] Body mass index (BMI) [Ratio] 23.57 kg/m2 23.57 kg/m2 [facility] Oxygen saturation in Arterial blood by Pulse oximetry 98 % 98 % [facility] Systolic blood pressure 124 mm[Hg] 124 mm[Hg] [facility] Oxygen saturation in Arterial blood by Pulse oximetry 98 % 98 % [facility] Diastolic blood pressure 76 mm[Hg] 76 mm[Hg] [facility] Heart rate 62 /min 62 /min [facility] [facility] Body height 172.7 cm 172.7 cm [facility] Body weight 72.122 kg 72.122 kg [facility] Body mass index (BMI) [Ratio] 24.18 kg/m2 24.18 kg/m2 [facility] Systolic blood pressure 122 mm[Hg] 122 mm[Hg] [facility] Diastolic blood pressure 70 mm[Hg] 70 mm[Hg] [facility] Heart rate 60 /min 60 /min [facility] Body height 172.7 cm 172.7 cm [facility] Body weight 71.668 kg 71.668 kg [facility] Body mass index (BMI) [Ratio] 24.02 kg/m2 24.02 kg/m2 [facility] Oxygen saturation in Arterial blood by Pulse oximetry 99 % 99 % [facility] Systolic blood pressure 152 mm[Hg] 152 mm[Hg] [facility] Diastolic blood pressure 70 mm[Hg] 70 mm[Hg] [facility] Heart rate 60 /min 60 /min [facility] Body height 172.7 cm 172.7 cm [facility] Body weight 73.029 kg 73.029 kg [facility] Body mass index (BMI) [Ratio] 24.48 kg/m2 24.48 kg/m2 [facility] Oxygen saturation in Arterial blood by Pulse oximetry 98 % 98 % [facility] Oxygen saturation in Arterial blood by Pulse oximetry 98 % 98 % [facility] Systolic blood pressure 148 mm[Hg] 148 mm[Hg] [facility] Diastolic blood pressure 70 mm[Hg] 70 mm[Hg] [facility] Heart rate 61 /min 61 /min [facility] Body height 172.7 cm 172.7 cm [facility] Body weight 74.844 kg 74.844 kg [facility] Body mass index (BMI) [Ratio] 25.09 kg/m2 25.09 kg/m2 [facility] Systolic blood pressure 162 mm[Hg] 162 mm[Hg] [facility] Diastolic blood pressure 70 mm[Hg] 70 mm[Hg] [facility] Heart rate 80 /min 80 /min [facility] Body height 172.7 cm 172.7 cm [facility] Body weight 72.576 kg 72.576 kg [facility] Body mass index (BMI) [Ratio] 24.33 kg/m2 24.33 kg/m2 [facility] Oxygen saturation in Arterial blood by Pulse oximetry 98 % 98 % [facility] Systolic blood pressure 128 mm[Hg] 128 mm[Hg] [facility] Diastolic blood pressure 88 mm[Hg] 88 mm[Hg] [facility] Heart rate 83 /min 83 /min [facility] Body height 172.7 cm 172.7 cm [facility] Body weight 70.308 kg 70.308 kg [facility] Body mass index (BMI) [Ratio] 23.57 kg/m2 23.57 kg/m2 [facility] Oxygen saturation in Arterial blood by Pulse oximetry 99 % 99 % [facility] Oxygen saturation in Arterial blood by Pulse oximetry 98 % 98 % [facility] ([facility]) Systolic blood pressure 146 mm[Hg] 146 mm[Hg] [facility] ([facility]) Body weight 179.00 [lb_av] 179.00 [lb_av] [facility] T ([facility]) Diastolic blood pressure 70 mm[Hg] 70 mm[Hg] [facility] ([facility]) Heart rate 70 /min 70 /min [facility] ([facility]) Body temperature 98.2 [degF] 98.2 [degF] [facility] ([facility]) Body temperature 36.8 Kemi 36.8 Kemi [facility] ( [facility]) ID Date Data Source [id number] 10/13/2020 11:11:53 PM EST [facility] Name Value Range Interpretation Code Description Data Source(s) WEIGHT RECORDED 167.77 lb 167.77 lb Health system WEIGHT RECORDED 168.9 lb 168.9 lb Health system WEIGHT RECORDED 167.55 lb 167.55 lb Health system WEIGHT RECORDED 166.89 lb 166.89 lb Health system Body height Measured 68 in 68 in [facility] TRANSFER FROM [facility] Patient Treatment Plan of Care Planned Activity Planned Date Details Description Data Source (s) Tylenol Extra Strength 500 MG 04/25/2021 01:00:[address] [facility]) Torsemide 100 MG 04/17/2021 01:00:[address] [facility] ([facility]) Lokelma 5 GM 04/16/2021 01:00:00 AM [facility]T [facility] ([facility]) Metoprolol Succinate ER 25 MG 04/16/2021 01:00:[address] [facility] ([facility]) Calcitriol 0.25 MCG 04/16/2021 01:00:00 AM EDT [facility]) Aspirin 81 81 MG 04/16/2021 01:00:[address] [facility] ([facility]) raNITIdine HCl 150 MG 04/16/2021 01:00:[address] [facility] ([facility]) Dificid 200 MG 04/16/2021 01:00:[address] [facility] ([facility]) Torsemide 100 MG 04/16/2021 01:00:[address] [facility] ([facility]) torsemide 100 MG Oral Tablet 01/04/2021 12:00:00 AM EDT [facility] 24 HR metoprolol succinate 25 MG Extended Release Oral Tablet 01/04/2021 12:00:00 AM EDT [facility] 24 HR metoprolol succinate 25 MG Extended Release Oral Tablet 11/30/2020 12:00:00 AM EDT [facility] torsemide 100 MG Oral Tablet 11/04/2020 12:00:00 AM EST [facility] Isosorbide Dinitrate 20 MG Oral Tablet 11/04/2020 12:00:00 AM EST [facility] carvedilol 6.25 MG Oral Tablet 11/04/2020 12:00:00 AM EST [facility] Hydralazine Hydrochloride 50 MG Oral Tablet 10/14/2020 12:00:00 AM [facility] Acetaminophen 325 MG Oral Tablet 10/07/2020 12:00:00 AM [facility] Cephalexin 500 MG Oral Capsule 10/06/2020 12:00:00 AM [facility] torsemide 100 MG Oral Tablet 10/06/2020 12:00:00 AM [facility] Furosemide 40 MG Oral Tablet 09/28/2020 12:00:00 AM [facility] Isosorbide Dinitrate 20 MG Oral Tablet 09/27/2020 12:00:00 AM [facility] carvedilol 6.25 MG Oral Tablet 09/27/2020 12:00:00 AM [facility] carvedilol 6.25 MG Oral Tablet 09/27/2020 12:00:00 AM [facility] Isosorbide Dinitrate 20 MG Oral Tablet 09/27/2020 12:00:00 AM [facility] Hydralazine Hydrochloride 25 MG Oral Tablet 09/27/2020 12:00:00 AM [facility] Furosemide 40 MG Oral Tablet 09/27/2020 12:00:00 AM [facility] Isosorbide Dinitrate 20 MG Oral Tablet 09/27/2020 12:00:00 AM [facility] Hydralazine Hydrochloride 25 MG Oral Tablet 09/27/2020 12:00:00 AM [facility] carvedilol 6.25 MG Oral Tablet 09/27/2020 12:00:00 AM [facility] Acetaminophen 325 MG Oral Tablet 09/27/2020 12:00:00 AM [facility] 10 ML Atropine Sulfate 0.1 MG/ML Prefilled Syringe 09/25/2020 01 :45:43 AM [facility] Glucagon 1 MG Injection 09/24/2020 05:54:12 PM [facility] Glucose 0.417 MG/MG Oral Gel 09/24/2020 05:54:12 PM [facility] Furosemide 40 MG Oral Tablet 09/01/2020 12:00:00 AM [facility] Hydralazine Hydrochloride 10 MG Oral Tablet 09/01/2020 12:00:00 AM EST [facility] Hydralazine Hydrochloride 10 MG Oral Tablet 08/13/2020 12:00:00 AM EST [facility] Hydralazine Hydrochloride 10 MG Oral Tablet 06/07/2020 12:00:00 AM EDT [facility] Spironolactone 25 MG Oral Tablet 06/02/2020 12:00:00 AM EDT [facility] Furosemide 40 MG Oral Tablet 06/02/2020 12:00:00 AM EDT [facility] Spironolactone 25 MG Oral Tablet [facility] Isosorbide Mononitrate 20 MG Oral Tablet [facility] Isosorbide Dinitrate 20 MG Oral Tablet [facility]
[2021-07-14 19:45] LABS: EOS # 0.1 10^3/uL (0.0-0.5); LYMPH # 0.3 10^3/uL (1.5-5.0); LYMPH % 7.5 % (24.0-44.0); MEAN CORPUSCULAR HEMOGLOBIN 30.3 pg (27.0-33.0); MEAN CORPUSCULAR HGB CONC 31.8 g/dl (32.0-36.5); MEAN CORPUSCULAR VOLUME 95.2 fl (80.0-96.0); MONO # 0.3 10^3/uL (0.0-0.8); MONO % 7.5 % (2.0-8.0); NEUTROPHILS # 3.7 10^3/uL (1.5-8.5); NEUTROPHILS % 82.5 % (36.0-66.0); PLATELET COUNT, AUTOMATED 182 10^3/uL (150-450); RED BLOOD COUNT 2.08 10^6/uL (4.30-6.10); WHITE BLOOD COUNT 4.4 10^3/uL (4.0-10.0)
[2021-07-14 19:47] LABS: ALBUMIN 2.3 GM/DL (3.2-5.2); BILIRUBIN,TOTAL 0.3 MG/DL (0.2-1.0); CALCIUM LEVEL 7.9 MG/DL (8.8-10.2); CREATININE FOR GFR 6.44 MG/DL (0.70-1.30); GLOMERULAR FILTRATION RATE 8.8 (>35); MAGNESIUM LEVEL 1.8 MG/DL (1.8-2.4); POTASSIUM SERUM 5.4 MEQ/L (3.5-5.1); THYROID STIMULATING HORMONE 18.4 uIU/ML (0.358-3.740); TOTAL PROTEIN 5.6 GM/DL (6.4-8.2)
[2021-07-14 19:54] LABS: HEMATOCRIT 19.8 % (42.0-52.0); HEMOGLOBIN 6.3 g/dl (13.5-17.5)
--- NOTE | 2021-07-14 20:16 | REPVR ---
PROCEDURE INFORMATION: Exam: CT Head Without Contrast Exam date and time: 07/14/2021 7:30 PM Age: 89 years old Clinical indication: Injury or trauma; Fall; Blunt trauma (contusions or hematomas); Consciousness not specified; Additional info: Fall , ? seizure TECHNIQUE: Imaging protocol: Computed tomography of the head without contrast. Radiation optimization: All CT scans at this facility use at least one of these dose optimization techniques: automated exposure control; mA and/or kV adjustment per patient size (includes targeted exams where dose is matched to clinical indication); or iterative reconstruction. COMPARISON: No relevant prior studies available. FINDINGS: Brain: Diffuse mild cerebral age related volume loss. Moderate patchy low attenuation in the white matter compatible with moderate chronic small vessel ischemic disease. No midline shift, mass, fluid collection. Acute, small, left parafalcine subdural hemorrhage just above the corpus callosum measuring 6 mm thickness. Trace acute subdural hemorrhage along the posterior falx and left tentorium. Cerebral ventricles: Ventricular enlargement proportional to volume loss. Paranasal sinuses: Visualized sinuses are unremarkable. No fluid levels. Mastoid air cells: Visualized mastoid air cells are well aerated. Bones/joints: Unremarkable. No acute fracture. Soft tissues: Unremarkable. IMPRESSION: Acute, small, left parafalcine subdural hemorrhage just above the corpus callosum measuring 6 mm thickness. Trace acute subdural hemorrhage along the posterior falx and left tentorium. Electronically signed by: Guy Snyder On 07/14/2021 20:16:25 PM
--- NOTE | 2021-07-14 20:19 | REPVR ---
PROCEDURE INFORMATION: Exam: CT Cervical Spine Without Contrast Exam date and time: 07/14/2021 7:30 PM Age: 89 years old Clinical indication: Injury or trauma; Fall; Blunt trauma; Additional info: Fall , ? seizure TECHNIQUE: Imaging protocol: Computed tomography images of the cervical spine without contrast. Radiation optimization: All CT scans at this facility use at least one of these dose optimization techniques: automated exposure control; mA and/or kV adjustment per patient size (includes targeted exams where dose is matched to clinical indication); or iterative reconstruction. COMPARISON: 1. CR Abdomen,Flat Upright,PA CHEST 2021-06-07 12:33 2. CR PORTABLE CHEST X-RAY 2021-05-14 11:58 FINDINGS: Bones/joints: Normal spinal curvature, vertebral body heights, and alignment. No spinal fracture or acute subluxation. Discs/Spinal canal/Neural foramina: Diffuse degenerative disc space loss with degenerative disc osteophyte complexes, facet arthropathy, and ligamentum flavum thickening causes up to mild to moderate spinal and foraminal stenosis, greatest at C5-C7. C5-C7. Lungs: Lung apices are normal. Soft tissues: Unremarkable. IMPRESSION: No acute vertebral fracture/subluxation. Electronically signed by: Guy Snyder On 07/14/2021 20:19:39 PM
--- OUTSIDE RECORDS SUMMARY | 2021-07-14 20:26 | CCD ---
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 Name Role Phone Jose Martin ZARCO MD Unavailable Unavailable Jose Martin ZARCO MD Unavailable Unavailable Jose Martin ZARCO MD Unavailable Unavailable Jose Martin ZARCO MD Unavailable Unavailable Jose Martni ZARCO MD Unavailable Unavailable Jose Martin ZARCO [...] Unavailable Velazquez, L Nikki PA Unavailable Unavailable Galva, V DADA PA-C Unavailable Unavailable Galva, V DADA PA-C Unavailable Unavailable Candice, V DADA PA-C Unavailable Unavailable Candice, V DADA PA-C Unavailable Unavailable Candice, V DADA PA-C Unavailable Unavailable Galva, V DADA PA-C Unavailable Unavailable Candice, V DADA PA-C Unavailable Unavailable Galva, V DADA PA-C Unavailable Unavailable Galva, V DADA PA-C Unavailable Unavailable Galva, V DADA PA-C Unavailable Unavailable Candice, V DADA PA-C Unavailable Unavailable Galva, V DADA PA-C Unavailable Unavailable Candice, V DADA PA-C Unavailable Unavailable Galva, V DADA PA-C Unavailable Unavailable Fons, M Alma LANGUAGE TEACHER Unavailable Unavailable Fons, M Alma LANGUAGE TEACHER Unavailable Unavailable Fons, M Alma LANGUAGE TEACHER Unavailable Unavailable Fons, M Alma LANGUAGE TEACHER Unavailable Unavailable Fons, M Alma LANGUAGE TEACHER Unavailable Unavailable Fons, M Alma LANGUAGE TEACHER Unavailable Unavailable Fons, M Alma LANGUAGE TEACHER Unavailable Unavailable Fons, M Alma LANGUAGE TEACHER Unavailable Unavailable Fons, M Alma LANGUAGE TEACHER Unavailable Unavailable Fons, M Alma LANGUAGE TEACHER Unavailable Unavailable Fons, M Alma LANGUAGE TEACHER Unavailable Unavailable Fons, M Alma LANGUAGE TEACHER Unavailable Unavailable Fons, M Alma LANGUAGE TEACHER Unavailable Unavailable Fons, M Alma LANGUAGE TEACHER Unavailable Unavailable Fons, M Alma LANGUAGE TEACHER Unavailable Unavailable Fons, M Alma LANGUAGE TEACHER Unavailable Unavailable Fons, M Alma LANGUAGE TEACHER Unavailable Unavailable Fons, M Alma LANGUAGE TEACHER Unavailable Unavailable Fons, M Alma LANGUAGE TEACHER Unavailable Unavailable Fons, M Alma LANGUAGE TEACHER Unavailable Unavailable Fons, M Alma LANGUAGE TEACHER Unavailable Unavailable Fons, M Alma LANGUAGE TEACHER Unavailable Unavailable Fons, M Alma LANGUAGE TEACHER Unavailable Unavailable Fons, M Alma LANGUAGE TEACHER Unavailable Unavailable Fons, M Alma LANGUAGE TEACHER Unavailable Unavailable Fons, M Alma LANGUAGE TEACHER Unavailable Unavailable Fons, M Alma LANGUAGE TEACHER Unavailable Unavailable Fons, M Alma LANGUAGE TEACHER Unavailable Unavailable Fons, M Alma LANGUAGE TEACHER Unavailable Unavailable Fons, M Alma LANGUAGE TEACHER Unavailable Unavailable Fons, M Alma LANGUAGE TEACHER Unavailable Unavailable Fons, M Alma LANGUAGE TEACHER Unavailable Unavailable Fons, M Alma LANGUAGE TEACHER Unavailable Unavailable Fons, M Alma LANGUAGE TEACHER Unavailable Unavailable Fons, M Alma LANGUAGE TEACHER Unavailable Unavailable Fons, M Alma LANGUAGE TEACHER Unavailable Unavailable Fons, M Alma LANGUAGE TEACHER Unavailable Unavailable Fons, M Alma LANGUAGE TEACHER Unavailable Unavailable Fons, M Alma LANGUAGE TEACHER Unavailable Unavailable Fons, M Alma LANGUAGE TEACHER Unavailable Unavailable Fons, M Alma LANGUAGE TEACHER Unavailable Unavailable Fons, M Alma LANGUAGE TEACHER Unavailable Unavailable Fons, M Alma LANGUAGE TEACHER Unavailable Unavailable Fons, M Alma LANGUAGE TEACHER Unavailable Unavailable Fons, M Alma LANGUAGE TEACHER Unavailable Unavailable Fons, M Alma LANGUAGE TEACHER Unavailable Unavailable Fons, M Alma LANGUAGE TEACHER Unavailable Unavailable Fons, M Alma LANGUAGE TEACHER Unavailable Unavailable Fons, M Alma LANGUAGE TEACHER Unavailable Unavailable Fons, M Alma LANGUAGE TEACHER Unavailable Unavailable Fons, M Alma LANGUAGE TEACHER Unavailable Unavailable Fons, M Alma LANGUAGE TEACHER Unavailable Unavailable Fons, M Alma LANGUAGE TEACHER Unavailable Unavailable GARCIA, COLTEN MBBS Unavailable Unavailable [...] [employer] Unavailable Unavailable Rico Mirand[employer] Unavailable Unavailable SlezRico connorjtech Unavailable Unavailable Slezka Voj[employer] Unavailable Unavailable BitakaRicojtech Unavailable Unavailable Rico Mirandajtech Unavailable Unavailable Rico [...] is protected by Article 27-F of the [facility] Public Health law. If you continue you may have access to information: Regarding HIV / AIDS; Provided by facilities licensed or operated by the [facility] Office of Mental Health; or Provided by the [facility] Office for People With Developmental Disabilities. If such information is present, then the following [facility] mandated warning applies: This information [...] law may result in a fine or correction sentence or both. A general authorization for the release of medical or other information is NOT sufficient authorization for further disc losure. Allergies and Adverse Reactions Type Description Substance Reaction Status Data Source(s ) Ramipril Ramipril Ramipril active NETSMART ([facility]) Propensity to adverse reactions NO KNOWN ALLERGIES NO KNOWN ALLERGIES [facility] Family History Family Member Name Family Member Gender Family Member Status Date o f Status Description Data Source(s) Unknown Male Problem [facility] ([facility]) Encounters Encounter Providers Location Date Indications Data Source(s ) Unknown [address] [facility], [facility] [address] 06/01/2021 12:00:00 AM EDT eCW1 ([facility]) (Cysto1) Urology [address] [place] [address] 05/31/2021 12:00:00 AM EDT eCW1 ([facility]) Outpatient SJP.CT-SJP.CHERISE 05/11/2021 10:14:09 AM EDT [facility] Outpatient Attender: BEL ZARCO MD CMP Internal Med at [facility] 04/19/2021 04:00:00 PM EDT [facility] ([facility]) 04/16/2021 01:00:00 AM EDT - 04:16:16 PM EDT NETSNORTHRIDGE ([facility]) Outpatient SJPBertoCT-SJP.SYR 02/02/2021 11:11:26 AM EDT [facility] Outpatient Attender: DADA ALANISCHUN-SJP 07/2021 12:00:00 AM EDT - 01/04/2021 12:09:03 PM EDT [facility] Outpatient Attender: BEL ZARCO MD CMP Internal Med at [facility] 12/19/2020 01:20:00 PM EDT [facility] ([facility]) Outpatient Attender: Nikki ALANISCHUN-PHAMP.CHUN 02/2021 10:11:54 AM EDT - 11/30/2020 11:14:25 AM EDT [facility] Outpatient CHUN-PHAMP 10/28/2020 03:32:20 PM EST [facility] Outpatient Attender: Nikki VANG-ANT.CHUN 11/2020 12:00:00 AM EST - 10/27/2020 04:07:13 PM EST [facility] Outpatient CHUN-ANT.CHUN 10/27/2020 12:00:[address] [facility] Outpatient Attender: Nikki VANG-ANT.CHUN 12:00:00 AM EST - 10/20/2020 10:04:[address] [facility] Outpatient Attender: Nikki VANG-ANT.CHUN 12:00:00 AM EST - 10/14/2020 11:38:34 AM EST [facility] Outpatient Attender: DADA GOODCHUN 12:00:00 AM EST - 10/10/2020 10:58:07 AM EST [facility] Outpatient Attender: Alma VANG-SJPBertoCHUN 12:00:00 AM EST - 10/06/2020 09:27:49 AM EST [facility] Inpatient Attender: COLTEN MISHRAA ttender: JENNIE WANG MDAdmitter: JENNIE WANG MDReferrer: JENNIE WANG MDConsultant: COLTEN MISHRA [id number] 09/24/2020 12:00:00 AM EST - 09/28/2020 02:10:00 PM EST Atrioventricular block, complete [facility] Atrioventricular block, complete Patient discharged. Outpatient Attender: Alma Sheriff FNPReferrer: Alma CLARK-SJPBertoCHUN 09/01/2020 12:00:00 AM EST - 09/01/2020 02:42:19 PM EST [facility] Outpatient Referrer: Alma VANG-SJPBertoCHUN 09/01/2020 12:00:[address] [facility] Outpatient Attender: Alma VANG-SJP.CHUN 10:49:04 AM EST - 06/29/2020 11:46:15 AM EST [facility] Outpatient Attender: BEL ZARCO MD [facility] Internal Med at [facility] 06/13/2020 01:20:00 PM EDT [facility] ([facility]) Outpatient Attender: Scarlet VANG-SJP.CHUN 05/26 12:00:00 AM EDT - 06/07/2020 12:07:41 PM EDT [facility] Immunizations Vaccine Date Status Description Data Source(s) Influenza High Dose 65>,Fluad Quadrivalent 05/30/2021 11:44:00 A M EDT completed [facility] ([facility]) Moderna Covid-19 Sars-Cov-2, mRNA, LNP-S, PF, 100 mcg/ 0.5 mL 11/28/2020 12:00:00 AM EDT completed [facility]) COVID-19 VACCINE Moderna 11/28/2020 12:00:00 AM EDT completed [facility] Vaccine Series Complete: YESThis Data wa s Submitted to [facility] [employer]. COVID-19 VACCINE, MRNA-1273, LNP-S (MODERNA)/PF 11/28/2020 1 2:00:00 AM EDT completed [facility] COVID-19 VACCINE Moderna 10/28/2020 12:00:00 AM EST completed [facility] Vaccine Series Complete: NOThis Data was Submitted to [facility] [employer]. COVID-19 VACCINE, MRNA-1273, LNP-S (MODERNA)/PF 10/28/2020 1 2:00:00 AM EST completed [facility] Moderna Covid-19 Sars-Cov-2, mRNA, LNP-S, PF, 100 mcg/ 0.5 mL 10/27/2020 11:00:00 PM EST completed [facility]) Medications Medication Brand Name Start Date Product Form Dose Route Admi nistrative Instructions Pharmacy Instructions Status Indications Reaction Description Data Source(s) sodium zirconium cyclosilicate 5000 MG Powder for Oral Suspension [Lokeldc] SODIUM ZIRCONIUM CYCLOSILICATE 06/29/2021 12:00:00 AM EDT [...] EVERY DAY SOLD: 06/04/2021 [facility] Calcitriol 0.74691 MG Oral Capsule Calcitriol 05/30/2021 12:00:00 AM EDT ORAL active [facility] torsemide 10 MG Oral Tablet Torsemide 05/30/2021 12:00:00 AM EDT ORAL active [facility] Lactobacillus acidophilus [id number] UNT Oral Tablet Acidoph ilus Probiotic 05/30/2021 12:00:00 AM EDT ORAL active MEDENT ([facility]) Lokelma Lokelma 05/30/2021 12:00:00 AM EDT active [facility] ([facility]) Finasteride 5 MG Oral Tablet FINASTERIDE [...] Extra Strength 04/25/2021 01:00:00 AM EDT completed [facility] ([facility]) Torsemide 100 MG Torsemide 04/17/2021 01:00:00 AM EDT completed NETSMART ([facility]) Calcitriol 0.25 MCG Calcitriol 04/16/2021 01:00:00 AM EDT completed NETSMART ([facility]) Metoprolol Succinate ER 25 MG Metoprolol Succinate ER 2020 01:00:00 AM EDT completed NETSMAR T ([facility]) Lokelma 5 GM Lokelma 04/16/2021 01:00:00 AM EDT co mpleted NETSMART ([facility]) Dificid 200 MG Dificid 04/16/2021 01:00:00 AM EDT completed [facility]SM[facility] ([facility]) raNITIdine HCl 150 MG raNITIdine HCl 04/16/2021 01:00:00 AM EDT completed [facility]SMART ([facility]) Aspirin 81 81 MG Aspirin 81 04/16/2021 01:00:00 AM EDT completed NETSMART ([facility] ) Torsemide 100 MG Torsemide 04/16/2021 01:00:00 AM EDT 50.0 {mg} completed NETSMART ([facility]) 200 mg 04/10/2021 12:00:00 AM EDT [...] EVERY DAY SOLD: 02/21/2021 [facility] Calcitriol 0.90115 MG Oral Capsule 0.25 mcg CALCITRIOL 02/04/2021 [...] SATURDAY, SATURDAY) SOLD: 02/06/2021 [facility] Calcitriol 0.68858 MG Oral Capsule 0.25 mcg CALCITRIOL 02/04/2021 [...] tablets (50 mg total) by mouth daily [facility] 24 HR metoprolol succinate 25 MG Extende d Release Oral Tablet metoprolol succinate (TOPROL-XL) 25 MG 24 hr tablet metoprolol succinate (TOPROL-XL) 25 MG 24 hr tablet 01/04/2021 12:00:00 AM EDT 25 mg Oral active Chronic combined systolic and diastolic congestive heart failure Take 1 tablet (25 mg total) by mouth daily [facility] Chronic combined systolic and diastolic congestive [...] tablet (25 mg total) by mouth daily [facility] Chronic combined systolic and diastolic congestive heart failure 100 mg 11/05/2020 12:00:00 AM EST tablet 45 TAEK 1/2 TABLET BY MOUTH ONCE DAILY TAEK 1/2 TABLET BY MOUTH ONCE DAILY SOLD: 11/06/2020 [facility] 20 mg 11/05/2020 12:00:00 AM EST tablet 180 TAKE ONE TABLET BY MOUTH THREE TIMES A DAY TAKE ONE TABLET BY MOUTH THREE TIMES A DAY SOLD: 11/06/2020 [facility] carvedilol 6.25 MG Oral Tablet CARVEDILOL 11/05/2020 12:00:00 AM EST tablet 180 TAKE ONE TABLET BY MOUTH TWICE A DAY TAKE ONE TABLET BY MOUT H TWICE A DAY SOLD: 11/06/2020 [facility] carvedilol 6.25 MG Oral Tablet carvedilol (COREG) 6.25 MG tablet carvedilol (COREG) 6.25 MG tablet 11/04/2020 12:00:00 AM EST 6.25 mg Oral aborted Take 1 tablet (6.25 mg total) by mouth 2 (two) times a day [facility] torsemide 100 MG Oral Tablet torsemide (DEMADEX) 100 M G tablet torsemide (DEMADEX) 100 MG tablet 11/04/2020 12:00:00 AM EST 50 mg Oral aborted Take 0.5 tablets (50 mg total) by mouth daily [facility] Isosorbide Dinitrate 20 MG Oral Tablet i sosorbide dinitrate (ISORDIL) 20 MG tablet isosorbide dinitrate (ISORDIL) 20 MG tablet 11/04/2020 12:00:00 AM EST 20 mg Oral aborted Take 1 tab let (20 mg total) by mouth 3 (three) times a day [facility] Hydralazine Hydrochloride 50 MG Oral Tablet HYDRALAZINE HCL 10/15/2020 12:00:00 AM EST tablet 270 TAKE ONE TABLET BY MOUTH THR EE TIMES A DAY TAKE ONE TABLET BY MOUTH THREE TIMES A DAY SOLD: 10/15/2020 [facility] Hydralazine Hydrochloride 50 MG Oral Tab let hydrALAZINE (APRESOLINE) 50 MG tablet hydrALAZINE (APRESOLINE) 50 MG tablet 10/14/2020 12:00:00 AM EST 50 mg Oral aborted Chronic combined systolic and diastolic congestive heart failure Take 1 tablet (50 mg total) by mouth 3 ( three) times a day [facility] Chronic combined systolic and diastolic congestive [...] 6 (six) hours as needed for pain [facility] 100 mg 10/06/2020 12:00:00 AM EST tablet 30 TAKE ONE TABLET BY MOUTH EVERY DAY TAKE ONE TABLET BY MOUTH EVERY DAY SOLD: 10/06/2020 [facility] torsemide 100 MG Oral Tablet torsemide (DEMADEX) 100 M G tablet torsemide (DEMADEX) 100 MG tablet 10/06/2020 12:00:00 AM EST 100 mg Oral aborted Take 1 tablet (100 mg total) by mouth daily [facility] Cephalexin 500 MG Oral Capsule cephalexin (KEFLEX) 500 MG capsule cephalexin (KEFLEX) 500 MG capsule 10/06/2020 12:00:00 AM EST 500 mg Oral active Take 1 capsule (500 mg total) by mouth 2 (two) times a day for 10 days [facility] Cephalexin 500 MG Oral Capsule CEPHALEXIN [...] on Sat09/28/20 at 0800, For 2 doses [facility] Medication administered onsite Furosemide 40 MG Oral Tablet Furosemide 40 MG Oral Tab let (LASIX) Furosemide 40 MG Oral Tablet (LASIX) 09/28/2020 12:00:00 AM EST 20 mg Oral active Take 0.5 tablets by mouth daily [facility] Acetaminophen 325 MG Oral Tablet acetaminophen (TYLENO L) tablet 650 mg acetaminophen (TYLENOL) tablet 650 mg 09/27/2020 08:15:00 PM EST 65 0 mg Oral completed 650 mg, Oral, O nce, Sat09/27/20 at 2015, For 1 dose
Maximum daily dose of acetaminophen is 3,000 mg from all sources in 24 hours.
[facility] Medication administered onsite magnesium sulfate in dextrose 5 % infusion (premix) 1 g [id number] 09/27/2020 06:15:00 AM EST 1 g Intravenous completed 1 g, Intravenous, Administer over 60 Minutes, Once, Sat09/27/20 at 0615, For 1 dose [facility] Medication administered onsite Magnesium Oxide 400 MG Oral Tablet Magnesium Oxide (MA G-OX) tablet 400 mg Magnesium Oxide (MAG-OX) tablet 400 mg 09/27/2020 12:45:00 AM EST 4 00 mg Oral completed 400 mg, Oral, Once, Sat at 0045, For 1 dose [facility] Medication administered onsite Acetaminophen 325 MG Oral Tablet Acetaminophen 325 MG Oral T ablet 09/27/2020 12:00:00 AM EST 650 mg Oral active Take 2 tablets by mouth every 6 (six) hours as needed for up to 10 days [facility] carvedilol 6.25 MG Oral Tablet Carvedilol 6.25 MG Oral Tablet (COREG) Carvedilol 6.25 MG Oral Tablet (COREG) 09/27/2020 12:00:00 AM EST 6.25 mg Oral active Take 1 tablet by mouth Two Times Daily [facility] Hydralazine Hydrochloride 25 MG Oral Tab let hydrALAZINE HCl 25 MG Oral Tablet (APRESOLINE) hydrALAZINE HCl 25 MG Oral Tablet (APRESOLINE) 12:00:00 AM EST 25 mg Oral active Take 1 tablet by mouth every 8 (eight) hours [facility] Isosorbide Dinitrate 20 MG Oral Tablet I sosorbide Dinitrate 20 MG Oral Tablet (ISORDIL) Isosorbide Dinitrate 20 MG Oral Tablet (ISORDIL) 09/27 12:00:00 AM EST 20 mg Oral active Take 1 tablet by mouth Three times daily [facility] Furosemide 40 MG Oral Tablet Furosemide 40 MG Oral Tab let (LASIX) Furosemide 40 MG Oral Tablet (LASIX) 09/27/2020 12:00:00 AM EST 40 mg Oral aborted Take 1 tablet by mouth daily [facility] Hydralazine Hydrochloride 25 MG Oral Tab let hydrALAZINE (APRESOLINE) 25 MG tablet hydrALAZINE (APRESOLINE) 25 MG tablet 09/27/2020 12:00:00 AM EST 25 mg Oral active Take 25 mg by mouth 3 (three) times a day [facility] Isosorbide Dinitrate 20 MG Oral Tablet i sosorbide dinitrate (ISORDIL) 20 MG tablet isosorbide dinitrate (ISORDIL) 20 MG tablet 09/27/2020 12:00:00 AM EST 20 mg Oral active Take 20 mg by mouth 3 (t hree) times a day [facility] carvedilol 6.25 MG Oral Tablet carvedilol (COREG) 6.25 MG tablet carvedilol (COREG) 6.25 MG tablet 09/27/2020 12:00:00 AM EST 6.25 mg Oral active Take 6.25 mg by mouth 2 (two) times a day [facility] carvedilol 6.25 MG Oral Tablet carvedilol (COREG) 6.25 MG tablet carvedilol (COREG) 6.25 MG tablet 09/27/2020 12:00:00 AM EST 1 {tbl} Oral aborted Take 1 tablet by mouth 2 (two) times a day [facility] Isosorbide Dinitrate 20 MG Oral Tablet i sosorbide dinitrate (ISORDIL) 20 MG tablet isosorbide dinitrate (ISORDIL) 20 MG tablet 09/27/2020 12:00:00 AM EST 1 {tbl} Oral aborted Take 1 tablet by mouth 3 (three) times a day [facility] sodium polystyrene (KAYEXALATE) powder 15 g [id number] 09/26/2020 11:45:00 PM EST 15 g Oral completed 15 g, Oral, Once, 09/26/20 at 2345, For 1 dose
Mix with 60 mL water and shake well.
[facility] Medication administered onsite carvedilol 6.25 MG Oral Tablet carvedilol (COREG) tabl et 6.25 mg carvedilol (COREG) tablet 6.25 mg 09/26/2020 09:00:00 PM EST 6.25 mg Oral active 6.25 mg, Oral, 2 Times Daily, First dose on Sat09/26/20 at 2100, For 30 days
Check vital signs before administering
[facility] Medication administered onsite Acetaminophen 325 MG Oral [...] mg from all sources in 24 hours.
[facility] Medication administered onsite Hydralazine Hydrochloride 25 MG Oral Tab let hydrALAZINE (APRESOLINE) tablet 25 mg hydrALAZINE (APRESOLINE) tablet 25 mg 09/26/2020 05:00:00 PM EST 25 mg Oral active 25 mg, Oral, E very 8 hours Standard (3 times per day), First dose on Sat09/26/20 at 1700, For 30 days
Check vital signs before administering
[facility] Medication administered onsite Magnesium Oxide 400 MG Oral Tablet Magnesium Oxide (MA G-OX) tablet 400 mg Magnesium Oxide (MAG-OX) tablet 400 mg 09/26/2020 04:15:00 AM EST 4 00 mg Oral completed 400 mg, Oral, Once, Sat at 0415, For 1 dose [facility] Medication administered onsite Isosorbide Dinitrate 20 MG Oral Tablet i sosorbide dinitrate (ISORDIL) tablet 20 mg isosorbide dinitrate (ISORDIL) tablet 20 mg 09/25/2020 05:00:00 PM EST 20 mg Oral active 20 mg, Ora l, Three Times Daily Standard, First dose on Sat09/25/20 at 1700, For 30 days
Hazardous pharmaceutical waste - Black bin disposal.
[facility] Medication administered onsite Hydralazine Hydrochloride 20 MG/ML Injec table Solution hydrALAZINE (APRESOLINE) injection 10 mg hydrALAZINE (APRESOLINE) injection 10 mg 09/25/2020 01 :15:00 PM EST 10 mg Intravenous completed 10 mg, Intravenous, Once, 09/25/20 at 1315, For 1 dose
Dilute in 25-50 ml normal saline. Administer over 30 minutes.
[facility] Medication administered onsite Aspirin 81 MG Chewable Tablet aspirin chewable tablet 81 mg aspirin chewable tablet 81 mg 09/25/2020 09:00:00 AM EST 81 mg Oral activ e 81 mg, Oral, Daily Standard, First dose on 09/25/20 at 0900, For 30 days
Chew tablet before swallowing.
[facility] Medication administered onsite 10 ML Atropine Sulfate 0.1 MG/ML Prefilled Syringe atr opine injection 0.5 mg atropine injection 0.5 mg 09/25/2020 02:30:00 AM EST 0.5 mg Intrave nous completed 0.5 mg, Intravenous, Once, Sun at 0230, For 1 dose [facility] Medication administered onsite furosemide (LASIX) injection 20 mg [id number] 09/25/2020 02:30:00 AM EST 20 mg Intravenous completed 20 mg, I ntravenous, Once, 09/25/20 at 0230, For 1 dose
Notify provider if systolic blood pressure less than: 90 [facility] Medication administered onsite 10 ML Atropine Sulfate 0.1 MG/ML Prefilled Syringe atr opine 1 MG/10ML injection atropine 1 MG/10ML injection 09/25/2020 01:45:43 AM EST completed Starting 09/25/20 at 0145, For 1 dose
Esteban Page: cabinet override
[facility] Medication administered onsite Albuterol 1 MG/ML Inhalant Solution albu terol (PROVENTIL) CONCENTRATED 0.5 % nebulizer solution 20 mg albuterol (PROVENTIL) CONCENTRATED 0 .5 % nebulizer solution 20 mg 09/25/2020 01:30:00 AM EST 20 mg Nebulization completed 20 mg, Nebulization, Once, 09/25/20 at 0130, For 1 dose [facility] Medication administered onsite furosemide (LASIX) injection 20 mg [id number] 09/25/2020 01:30:00 AM EST 20 mg Intravenous completed 20 mg, I ntravenous, Once, 09/25/20 at 0130, For 1 dose
Notify provider if systolic blood pressure less than: 90 [facility] Medication administered onsite sodium phosphate infusion 6 mmol/100 mL (premix) 09/25 01:30:00 AM EST 6 mmol Intravenous completed 6 mmol, Intravenous, at 25 mL/hr, Once, 09/25/20 at 0130, For 1 dose
Slower infusion rate (e.g. over 4 to 6 hours) are recommended in patients with renal impairment and/or less severe hypophosp hatemia.
[facility] Medication administered onsite sennosides, SHELTER 8.6 MG Oral Tablet senna tablet 2 tablet sen na tablet 2 tablet 09/25/2020 01:30:00 AM EST 2 {tbl} Oral completed 2 tablet, Oral, Once, 09/25/20 at 0130, For 1 dose [facility] Medication administered onsite magnesium sulfate in dextrose 5 % infusion (premix) 1 g [id number] [id number] 09/25/2020 01:30:00 AM EST 1 g Intravenous completed 1 g, Intravenous, Administer over 60 Minutes, Once, 09/25/20 at 0130, For 1 dose [facility] Medication administered onsite sodium polystyrene (KAYEXALATE) powder 15 g [id number] 09/25/2020 01:30:00 AM EST 15 g Oral completed 15 g, Oral, Once, 09/25/20 at 0130, For 1 dose
Mix with 60 mL water and shake well.
[facility] Medication administered onsite heparin (porcine) 5000 UNIT/ML injection 5,000 Units [id number] 09/24/2020 09:00:00 PM EST 5000 U Subcutaneous active 5,000 Units, Subcutaneous, 2 Times Daily, First dose on 09/24/20 at 2100, For 30 days [facility] Medication administered onsite 50 ML Magnesium Sulfate 40 MG/ML Injecti on magnesium sulfate infusion 2 g/50 mL (premix) magnesium sulfate infusion 2 g/50 mL (premix) 09/24/19 08:30:00 PM EST 2 g Intravenous completed 2 g, Intravenous, Administer over 60 Minutes, Once, 09/24/20 at 2030, For 1 dose [facility] Medication administered onsite sodium polystyrene (KAYEXALATE) powder 15 g [id number] 09/24/2020 08:15:00 PM EST 15 g Oral completed 15 g, Oral, Once, 09/24/20 at 2015, For 1 dose
Mix with 60 mL water and shake well.
[facility] Medication administered onsite Hydralazine Hydrochloride 10 MG Oral Tab let hydrALAZINE (APRESOLINE) tablet 10 mg hydrALAZINE (APRESOLINE) tablet 10 mg 09/24/2020 06:30:00 PM EST 10 mg Oral aborted 10 mg, Oral, E very 8 hours, First dose (after last modification) on 09/24/20 at 1830, For 30 days
Check vital signs before administering
[facility] Medication administered onsite furosemide (LASIX) injection 20 mg [id number] 09/24/2020 06:30:00 PM EST 20 mg Intravenous completed 20 mg, I ntravenous, Daily Standard, First dose on 09/24/20 at 1830, For 5 days
Notify provider if systolic blood pressure less than: 90 [facility] Medication administered onsite insulin lispro (HumaLOG) injection LOW DOSE EATING INS ULIN patients 1-8 Units [id number] 09/24/2020 06:15:00 PM EST U Subcutaneous aborted 1-8 Units, Subcutaneous, Three Times Daily-With Meals, First dose on 09/24/20 at 1815, For 30 days
Nursing MUST open the 'SQ Insulin Dosing Charts' Sidebar Report, or, the Patient Summary or Summary Report within the ED.
[facility] Medication administered onsite Glucose 0.417 MG/MG Oral Gel glucose (GLUTOSE) 40 % or al gel 15 g glucose (GLUTOSE) 40 % oral gel 15 g 09/24/2020 05:54:12 PM EST 15 g Oral active 15 g, Oral, PRN, Low blood s ugar, for gluose 55-69 mg/dl and able to take PO, Starting 09/24/20 at 1754, For 30 days [facility] Medication administered onsite Glucagon 1 MG Injection glucagon (human recombinant) ( GLUCAGEN) injection 1 mg glucagon (human recombinant) (GLUCAGEN) injection 1 mg 09/24/2020 05:54:12 PM EST 1 mg Intramuscular active 1 mg, Intramuscular, PRN, for glucose <55 without IV access, Starting 09/24/20 at 1754, For 30 days [facility] Medication administered onsite isoproterenol (ISUPREL) 1 mg in dextrose 5 % 250 mL (0.004 m g/mL) infusion 09/24/2020 05:45:00 PM EST 2 ug/min Intravenous aborted 2 mcg/min (30 mL/hr), Intravenous, at 30 mL/hr, Continuous, Starting 09/24/20 at 1745, For 30 days
Starting dose = 2 mcg/min Titrate to maintain HR > 60 Increase by 1-2 mcg/min Max Dose = 10 mcg/min
[facility] Medication administered onsite Hydralazine Hydrochloride 10 MG Oral Tab let hydrALAZINE (APRESOLINE) 10 MG tablet hydrALAZINE (APRESOLINE) 10 MG tablet 09/01/2020 12:00:00 AM EST 10 mg Oral active Take 1 tablet (10 mg total) by mouth 3 (three) times a day [facility] Furosemide 40 MG Oral Tablet furosemide (LASIX) 40 MG tablet furosemide (LASIX) 40 MG tablet 09/01/2020 12:00:00 AM EST 40 mg Oral activ e Take 1 tablet (40 mg total) by mouth daily [facility] Hydralazine Hydrochloride 10 MG Oral Tab let hydrALAZINE (APRESOLINE) 10 MG tablet hydrALAZINE (APRESOLINE) 10 MG tablet 08/13/2020 12:00:00 AM EST aborted [facility] 10 mg 07/07/2020 12:00:00 AM EST [...] 06/13/2020 12:00:00 AM EDT ORAL completed [facility]ENT ([facility]) Isosorbide Mononitrate 20 MG Oral Tablet Isosorbide Mononitr ate 06/13/2020 12:00:00 AM EDT ORAL active M EDENT ([facility]) 10 mg 06/08/2020 12:00:00 AM EDT tablet 90 TAKE ONE TABLET BY MOUTH THREE TIMES A DAY TAKE ONE TABLET BY MOUTH THREE TIMES A DAY SOLD: 06/10/2020 [facility] Hydralazine Hydrochloride 10 MG Oral Tab let hydrALAZINE (APRESOLINE) 10 MG tablet hydrALAZINE (APRESOLINE) 10 MG tablet 06/07/2020 12:00:00 AM EDT 10 mg Oral active Take 1 tablet (10 mg total) by mouth 3 (three) times a day [facility] 40 mg 06/02/2020 12:00:00 AM EDT tablet 60 TAKE 1 TABLET [40MG] BY MOUTH TWO TIMES A DAY AT 9:00AM AND 5:00PM TAKE 1 TABLET [40MG] BY MOUTH TWO TIMES A DAY AT 9:00AM AND 5:00PM SOLD: 06/03/2020 [facility] 20 mg 06/02/2020 12:00:00 AM [...] active Take 0.5 tablets by mouth daily [facility] Furosemide 40 MG Oral Tablet furosemide (LASIX) 40 MG tablet furosemide (LASIX) 40 MG tablet 06/02/2020 12:00:00 AM EDT 60 mg Oral activ e Take 60 mg by mouth daily [facility] 25 mg 06/02/2020 12:00:00 AM EDT [...] 12:00:00 AM EDT ORAL complete d MEDENT ([facility]) 1,000 mcg/mL 03/29/2020 12:00:00 AM [...] by mouth 2 (two) times a day [facility] Spironolactone 25 MG Oral Tablet Spironolactone 25 MG Oral Tablet (ALDACTONE) Spironolactone 25 MG Oral Tablet (ALDACTONE) 12.5 mg Oral aborted Take 12.5 mg by mouth daily [facility] Isosorbide Mononitrate 20 MG Oral Tablet Isosorbide Mononitrate 20 MG Oral Tablet (ISMO) Isosorbide Mononitrate 20 MG Oral Tablet (ISMO) 20 mg Oral aborted Take 20 mg by mouth Two Time s Daily [facility] Insurance Providers Payer name Policy type / Coverage type Policy ID Covered green party ID Covered green party's relationship to mejia Policy Mejia Plan Information MEDICARE [id number] xxxxxxxxxxx [id number] MEDICARE [id number] SP [id number] [address] Medicare Primary [id number] Self [id number] MEDICARE [id number] SP [id number] MEDICARE M [id number] S [id number] [address] Medicare Primary [id number] Self [id number] Medicare Railroad Medicare Primary [id number] Self [id number] Medicare Railroad Medicare Primary [id number] Self [id number] MEDICARE [id number] SP [id number] MEDICARE A [id number] Self [id number] MEDICARE [id number] Elsa [id number] [employer] GE PARTB [id number] SP [id number] [facility] [id number] Elsa [id number] [facility] [id number] [id number] [facility] UNITED HE[employer] CARE U [id number] Self [id number] United [employer] Medigap Part [id number] Self Medicare Railroad Medicare Primary [id number] Self [facility] INDEMNITY O [id number] S [id number] UNITED HEALTHCARE O [id number] S [id number] MEDICARE -O/P [id number] 18 [id number] MEDICARE [id number] SP [id number] UNITED HEALTHCARE RET RR [id number] SP [id number] MEDICARE [id number] SP [id number] UNITED [employer] RET RR [id number] SP [id number] UNITED HE[employer]CARE RET RR [id number] SP [id number] [employer] MEDICARE C [id number] S [id number] [facility] GE PAR O [id number] S [id number] MEDICARE C [id number] S [id number] [facility] Commercial Medigap Part B [id number] Self [id number] Medicare Railroad Medicare Primary [id number] Self [id number] [facility] Part B [id number] Self [id number] Medicare Railroad Medicare Primary [id number] Self [id number] [facility] GE PARTB [id number] SP [id number] [employer] MEDICARE C [id number] S A [id number] [facility] PARTB [id number] SP [id number] Problems, Conditions, and Diagnoses Code Display Name Description Problem Type Effective Dates Data Source(s) 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 Chronic combined systolic (congestive) a Diagnosis 01/04/2021 10:54:41 AM EDT [facility] R79.89 Other specified abnormal findings of blo od chemistry Other specified abnormal findings of blo Diagnosis 11/30/2020 10:11:54 AM EDT [facility] T81.49XA Infection following a proced ure, other surgical site, initial encounter Infection following a procedure, other s Diagnosis 021 10:11:54 AM EDT [facility] R07.89 Other chest pain Other chest pain Diagnosis 11/30/2020 10 :11:54 AM EDT [facility] Z95.0 Presence of cardiac pacemaker Presence of cardiac pace maker Diagnosis 11/30/2020 10:11:54 AM EDT [facility] N18.4 Chronic kidney disease, stage 4 (severe) Chronic kidney disease, stage 4 (severe) Diagnosis 11/30/2020 10:11:54 AM EDT [facility] I44.2 Atrioventricular block, complete Atrioventricula r block, complete Diagnosis 11/30/2020 10:11:54 AM EDT [facility] E03.9 Hypothyroidism, unspecified Hypothyroidism, unspecifie d Diagnosis 10/27/2020 02:16:[address] [facility] R94.6 Abnormal results of thyroid function [place] dies Abnormal results of thyroid function [place] Diagnosis 10/20/2020 08:35:[address] [facility] R06.00 Dyspnea, unspecified Dyspnea, unspecified Diagnosis 10/06/2020 08:25:[address] [facility] I10 Essential (primary) hypertension Essential (primary) h ypertension Diagnosis 10/06/2020 08:25:[address] [facility] D64.9 Anemia, unspecified Anemia, unspecified Diagnosis 0 10/06/2020 08:25:[address] 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 Acquired absence of other specified parts of digestive tract Problem 01:00:00 AM EDT [facility] ([facility] ) E86.0 Dehydration Dehydration Problem 04/16/2021 01:00:00 AM EDT [facility] ([facility]) 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, or unspecified chronic kidney disease Hypertensive heart and chronic kidney di sease with heart failure and stage 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, or unspecified chronic kidney disease Problem 04/16/2021 01:00:00 AM EDT [facility] ([facility]) I50.22 Chronic systolic (congestive) heart fail ure Chronic systolic (congestive) heart failure Problem 04/16/2021 01:00:00 AM EDT [facility] ([facility]) N18.4 Chronic kidney disease, stage 4 (severe) Chronic kidney disease, stage 4 (severe) Problem 04/16/2021 01:00:00 AM EDT [facility] ([facility]) E87.2 Acidosis Acidosis Problem 04/16/2021 01:00:00 AM ED T [facility] ([facility]) N17.9 Acute kidney failure, unspecified Acute kidney f ailure, unspecified Problem 04/16/2021 01:00:00 AM EDT [facility] ([facility]) D51.0 Vitamin B12 deficiency anemia due to int rinsic factor deficiency Vitamin B12 deficiency anemia due to intrinsic factor deficiency Problem 04/16/2021 01:00:00 AM EDT [facility] ([facility] ) 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 myocardial infarction Pr oblem 04/16/2021 01:00:00 AM EDT [facility] ([facility] ) G43.909 Migraine, unspecified, not intractable, without status migrainosus Migraine, unspecified, not intractable, without status migrainosus Problem 04/16/2021 01:00:00 AM EDT [facility] ([facility] ) Z95.0 Presence of cardiac pacemaker Presence of cardiac pace maker Problem 04/16/2021 01:00:00 AM EDT [facility] ([facility] ) Z91.81 History of falling History of falling Problem 01:00:00 AM EDT [facility] ([facility]) 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 [facility] (cu rrent) use of aspirin Problem 04/16/2021 01:00:00 AM EDT [facility] ([facility]) 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), 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 transient ischemic attack (TIA), and cerebral infarction without residual deficits Problem 04/16/2021 01:00:00 AM EDT [facility] ([facility] ) Z87.891 Personal history of nicotine dependence Personal history of nicotine dependence Problem 04/16/2021 01:00:00 AM EDT [facility] ([facility]) 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, 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, recurrent Problem 04/10/2021 01:00:00 AM E DT [facility] ([facility]) R79.89 Abnormal thyroid blood test Abnormal thyroid blood lalita t [id number] 10/20/2020 12:00:00 AM EST [facility] R07.89 Other chest pain Other chest pain [id number] 10/14/2020 12 :00:00 AM EST [facility] R06.00 TYLER (dyspnea on exertion) TYLER (dyspnea on exertion) 64 [id number] 10/06/2020 12:00:00 AM EST [facility] T81.49XA Incisional infection Incisional infection [id number] 10/06/2020 12:00:00 AM EST [facility] Z95.0 Pacemaker Pacemaker [id number] 10/06/2020 12:00:00 AM ES T [facility] 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 Third degree AV block [id number] 10/06/2020 12:00:[address] 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 [id number] 06/07/2020 12:00:00 AM EDT [facility] Surgeries/Procedures Procedure Description Date Indications Data Source(s) Med: Lidocaine Jelly 2% 6ml Intravesically (Glydo) 05/31/2021 12:00:00 AM EDT eCW1 ([facility]) TCM-Mod 04/19/2021 12:00:00 AM EDT Noelle KRAUS ([facility]) OFFICE OUTPATIENT VISIT 25 MINUTES 12/19/2020 12:00:00 AM EDT DALTNO ([facility]) ECG ROUTINE ECG W/LEAST 12 LDS W/I&R <td>POCT AMB EKG</td><td>Routine</td><td>10/20/2020 11:27 AM EST</td><td> Other chest pain</td><td> </td> 10/20/2020 04:27:00 PM EST Other chest pain [facility] Other chest pain BLOOD COUNT COMPLETE AUTO&AUTO DIFRNTL WBC COUNT <td>C BC AND DIFFERENTIAL</td><td>Routine</td><td>10/09/2020</td><td></td><td> </td> 10/09/2020 12:00:00 AM EST [facility] HEPATIC FUNCTION PANEL <td>HEPATIC FUNCTION PANEL</td><td>Routine</td><td>10/09/2020</td><td></td><td> </td> 10/09/2020 12:00:00 AM EST [facility] BASIC METABOLIC PANEL CALCIUM TOTAL <td>BASIC METABOLI C PANEL</td><td>Routine</td><td>10/09/2020</td><td></td><td> </td> 10/09/2020 12:00:00 AM EST [facility] POCT GLUCOSE, DOCKED <td>POCT GLUCOSE, DOCKED</td ><td>Routine</td><td>09/28/2020 11:33 AM EST</td><td></td><td> </td> 09/28/2020 11:33:00 AM [facility] POCT GLUCOSE, DOCKED <td>POCT GLUCOSE, DOCKED</td ><td>Routine</td><td>09/28/2020 7:50 AM EST</td><td></td><td> </td> 09/28/2020 07:50:00 AM [facility] BLOOD COUNT COMPLETE AUTOMATED <td>CBC</td><td>Routine </td><td>09/28/2020 5:18 AM EST</td><td></td><td> </td> 09/28/2020 05:18:00 AM [facility] PHOSPHORUS INORGANIC <td>PHOSPHORUS LEVEL</td><td >Routine</td><td>09/28/2020 5:18 AM EST</td><td></td><td> </td> 09/28/2020 05:18:00 AM [facility] MAGNESIUM <td>MAGNESIUM LEVEL</td><td> Routine</td><td>09/28/2020 5:18 AM EST</td><td></td><td> </td> 09/28/2020 05:18:00 AM [facility] BASIC METABOLIC PANEL CALCIUM TOTAL <td>BASIC METABOLI C PANEL</td><td>Routine</td><td>09/28/2020 5:18 AM EST</td><td></td><td> </td> 09/28/2020 05:18:00 AM [facility] XR CHEST FRONTAL ONLY [id number] <td>XR CHEST FRONTAL ONLY [id number]</td><td>Routine</td><td>09/27/2020 10:46 PM EST</td><td></td><td> </td> 09/27/2020 10:46:50 PM [facility] GLUCOSE QUANTITATIVE BLOOD XCPT REAGENT STRIP <td>POCT GLUCOSE, DOCKED</td><td>Routine</td><td>09/27/2020 9:53 PM EST</td><td></td><td> </td> 09/27/2020 09:53:00 PM [facility] TROPONIN QUANTITATIVE <td>TROPONIN T</td><td>Routi ne</td><td>09/27/2020 8:36 PM EST</td><td></td><td> </td> 09/27/2020 08:36:00 PM [facility] EKG 12-LEAD - CMAXX REPORT <td>EKG 12-LEAD - CMAXX REPORT</td><td></td><td>09/27/2020 7:38 PM EST</td><td></td><td></td> 09/27/2020 07:38:26 PM [facility] EKG 12-LEAD - CMAXX REPORT <td>EKG 12-LEAD - CMAXX REPORT</td><td></td><td>09/27/2020 7:38 PM EST</td><td></td><td></td> 09/27/2020 07:38:26 PM [facility] EKG 12-LEAD <td>EKG 12-LEAD</td><td>Rout ine</td><td>09/27/2020 7:38 PM EST</td><td></td><td></td> 09/27/2020 07:38:26 PM [facility] EKG 12-LEAD <td>EKG 12-LEAD</td><td>Rout ine</td><td>09/27/2020 7:38 PM EST</td><td></td><td> </td> 09/27/2020 07:38:26 PM [facility] GLUCOSE QUANTITATIVE BLOOD XCPT REAGENT STRIP <td>POCT GLUCOSE, DOCKED</td><td>Routine</td><td>09/27/2020 5:05 PM EST</td><td></td><td> </td> 09/27/2020 05:05:00 PM [facility] CARDIAC DEVICE (IMPLANT) CHECK <td>CARDIAC DEVICE (IMP LANT) CHECK</td><td>Routine</td><td>09/27/2020 12:33 PM EST</td><td></td><td></td> 09/27/2020 12:33:11 PM [facility] GLUCOSE QUANTITATIVE BLOOD XCPT REAGENT STRIP <td>POCT GLUCOSE, DOCKED</td><td>Routine</td><td>09/27/2020 12:15 PM EST</td><td></td><td> </td> 09/27/2020 12:15:00 PM [facility] RADIOLOGY REPORT <td>RADIOLOGY REPORT</td><td ></td><td>09/27/2020 10:53 AM EST</td><td></td><td></td> 09/27/2020 10:53:55 AM [facility] CARDIAC REPORT <td>CARDIAC REPORT</td><td>< /td><td>09/27/2020 10:53 AM EST</td><td></td><td></td> 09/27/2020 10:53:54 AM [facility] CARDIAC REPORT <td>CARDIAC REPORT</td><td>< /td><td>09/27/2020 10:53 AM EST</td><td></td><td></td> 09/27/2020 10:53:54 AM [facility] CARDIAC REPORT <td>CARDIAC REPORT</td><td>< /td><td>09/27/2020 10:53 AM EST</td><td></td><td></td> 09/27/2020 10:53:53 AM [facility] GLUCOSE QUANTITATIVE BLOOD XCPT REAGENT STRIP <td>POCT GLUCOSE, DOCKED</td><td>Routine</td><td>09/27/2020 8:52 AM EST</td><td></td><td> </td> 09/27/2020 08:52:00 AM [facility] BLOOD COUNT COMPLETE AUTOMATED <td>CBC</td><td>Routine </td><td>09/27/2020 5:01 AM EST</td><td></td><td> </td> 09/27/2020 05:01:00 AM [facility] PHOSPHORUS INORGANIC <td>PHOSPHORUS LEVEL</td><td >Routine</td><td>09/27/2020 5:01 AM EST</td><td></td><td> </td> 09/27/2020 05:01:00 AM [facility] MAGNESIUM <td>MAGNESIUM LEVEL</td><td> Routine</td><td>09/27/2020 5:01 AM EST</td><td></td><td> </td> 09/27/2020 05:01:00 AM [facility] BASIC METABOLIC PANEL CALCIUM TOTAL <td>BASIC METABOLI C PANEL</td><td>Routine</td><td>09/27/2020 5:01 AM EST</td><td></td><td> </td> 09/27/2020 05:01:00 AM [facility] EKG 12-LEAD - CMAXX REPORT <td>EKG 12-LEAD - CMAXX REPORT</td><td></td><td>09/27/2020 12:29 AM EST</td><td></td><td></td> 09/27/2020 12:29:01 AM [facility] EKG 12-LEAD - CMAXX REPORT <td>EKG 12-LEAD - CMAXX REPORT</td><td></td><td>09/27/2020 12:29 AM EST</td><td></td><td></td> 09/27/2020 12:29:01 AM [facility] EKG 12-LEAD <td>EKG 12-LEAD</td><td>Rout ine</td><td>09/27/2020 12:29 AM EST</td><td></td><td> </td> 09/27/2020 12:29:01 AM [facility] MAGNESIUM <td>MAGNESIUM LEVEL</td><td> Routine</td><td>09/26/2020 10:03 PM EST</td><td></td><td> </td> 09/26/2020 10:03:00 PM [facility] BASIC METABOLIC PANEL CALCIUM TOTAL <td>BASIC METABOLI C PANEL</td><td>Routine</td><td>09/26/2020 10:03 PM EST</td><td></td><td> </td> 09/26/2020 10:03:00 PM [facility] GLUCOSE QUANTITATIVE BLOOD XCPT REAGENT STRIP <td>POCT GLUCOSE, DOCKED</td><td>Routine</td><td>09/26/2020 8:30 PM EST</td><td></td><td> </td> 09/26/2020 08:30:00 PM [facility] PHOSPHORUS INORGANIC <td>PHOSPHORUS LEVEL</td><td >Routine</td><td>09/26/2020 8:30 PM EST</td><td></td><td> </td> 09/26/2020 08:30:00 PM [facility] MAGNESIUM <td>MAGNESIUM LEVEL</td><td> Routine</td><td>09/26/2020 8:30 PM EST</td><td></td><td> </td> 09/26/2020 08:30:00 PM [facility] BASIC METABOLIC PANEL CALCIUM TOTAL <td>BASIC METABOLI C PANEL</td><td>Routine</td><td>09/26/2020 8:30 PM EST</td><td></td><td> </td> 09/26/2020 08:30:00 PM [facility] GLUCOSE QUANTITATIVE BLOOD XCPT REAGENT STRIP <td>POCT GLUCOSE, DOCKED</td><td>Routine</td><td>09/26/2020 5:19 PM EST</td><td></td><td> </td> 09/26/2020 05:19:00 PM EST [facility] XR CHEST FRONTAL ONLY [id number] <td>XR CHEST FRONTAL ONLY [id number]</td><td>STAT</td><td>09/26/2020 2:47 PM EST</td><td></td><td> </td> 09/26/2020 02:47:00 PM EST [facility] INSERTION/REPLACEMENT, PERMANENT PACEMAK ER W/TRANSVENOUS ELECTRODE(S) ATRIAL AND VENTRICULAR <td>INSERTION/REPLACEMENT, PERMANENT PAC EMAKER W/TRANSVENOUS ELECTRODE(S) ATRIAL AND VENTRICULAR</td><td></td><td>09/26/2020 12:10 PM EST</td><td> CHB (complete heart block)</td><td></td> 09/26/2020 12:10:00 PM EST - 09/26/2020 02:36:00 PM EST CHB (complete heart block) [facility] CHB (complete heart block) TCAT INSJ/RPL PERM LEADLESS PACEMAKER RV W/IMG <td>TCA T INSJ/RPL PERM LEADLESS PACEMAKER RV W/IMG</td><td></td><td>09/26/2020 12:10 PM EST</td><td> CHB (complete heart block)</td><td></td> 09/26/2020 12:10:00 PM EST - 09/26/2020 02:36:00 PM EST CHB (complete heart block) [facility] CHB (complete heart block) EP LAB PROCEDURE LOG <td>EP LAB PROCEDURE LOG</td ><td></td><td>09/26/2020 11:24 AM EST</td><td></td><td></td> 09/26/2020 11:24:40 AM EST [facility] EP LAB PROCEDURE <td>EP LAB PROCEDURE</td><td >Routine</td><td>09/26/2020 11:24 AM EST</td><td></td><td></td> 09/26/2020 11:24:15 AM [facility] ECHO TTHRC R-T 2D W/WOM-MODE COMPL SPEC&COLR DOP <td>E CHOCARDIOGRAM 2D COMPLETE</td><td>Routine</td><td>09/26/2020 9:54 AM EST</td><td></td><td> </td> 09/26/2020 09:54:35 AM [facility] GLUCOSE QUANTITATIVE BLOOD XCPT REAGENT STRIP <td>POCT GLUCOSE, DOCKED</td><td>Routine</td><td>09/26/2020 6:06 AM EST</td><td></td><td> </td> 09/26/2020 06:06:00 AM [facility] BLOOD COUNT COMPLETE AUTOMATED <td>CBC</td><td>Routine </td><td>09/26/2020 3:18 AM EST</td><td></td><td> </td> 09/26/2020 03:18:00 AM [facility] PHOSPHORUS INORGANIC <td>PHOSPHORUS LEVEL</td><td >Routine</td><td>09/26/2020 3:18 AM EST</td><td></td><td> </td> 09/26/2020 03:18:00 AM [facility] MAGNESIUM <td>MAGNESIUM LEVEL</td><td> Routine</td><td>09/26/2020 3:18 AM EST</td><td></td><td> </td> 09/26/2020 03:18:00 AM [facility] BASIC METABOLIC PANEL CALCIUM TOTAL <td>BASIC METABOLI C PANEL</td><td>Routine</td><td>09/26/2020 3:18 AM EST</td><td></td><td> </td> 09/26/2020 03:18:00 AM [facility] GLUCOSE QUANTITATIVE BLOOD XCPT REAGENT STRIP <td>POCT GLUCOSE, DOCKED</td><td>Routine</td><td>09/25/2020 9:57 PM EST</td><td></td><td> </td> 09/25/2020 09:57:00 PM [facility] GLUCOSE QUANTITATIVE BLOOD XCPT REAGENT STRIP <td>POCT GLUCOSE, DOCKED</td><td>Routine</td><td>09/25/2020 6:14 PM EST</td><td></td><td> </td> 09/25/2020 06:14:00 PM [facility] GLUCOSE QUANTITATIVE BLOOD XCPT REAGENT STRIP <td>POCT GLUCOSE, DOCKED</td><td>Routine</td><td>09/25/2020 5:33 PM EST</td><td></td><td> </td> 09/25/2020 05:33:00 PM [facility] GLUCOSE QUANTITATIVE BLOOD XCPT REAGENT STRIP <td>POCT GLUCOSE, DOCKED</td><td>Routine</td><td>09/25/2020 5:11 PM EST</td><td></td><td> </td> 09/25/2020 05:11:00 PM [facility] GLUCOSE QUANTITATIVE BLOOD XCPT REAGENT STRIP <td>POCT GLUCOSE, DOCKED</td><td>Routine</td><td>09/25/2020 5:08 PM EST</td><td></td><td> </td> 09/25/2020 05:08:00 PM [facility] TROPONIN QUANTITATIVE <td>TROPONIN T</td><td>Routi ne</td><td>09/25/2020 3:29 PM EST</td><td></td><td> </td> 09/25/2020 03:29:00 PM [facility] GLUCOSE QUANTITATIVE BLOOD XCPT REAGENT STRIP <td>POCT GLUCOSE, DOCKED</td><td>Routine</td><td>09/25/2020 12:26 PM EST</td><td></td><td> </td> 09/25/2020 12:26:00 PM [facility] GLUCOSE QUANTITATIVE BLOOD XCPT REAGENT STRIP <td>POCT GLUCOSE, DOCKED</td><td>Routine</td><td>09/25/2020 8:39 AM EST</td><td></td><td> </td> 09/25/2020 08:39:00 AM [facility] GLUCOSE QUANTITATIVE BLOOD XCPT REAGENT STRIP <td>POCT GLUCOSE, DOCKED</td><td>Routine</td><td>09/25/2020 5:20 AM EST</td><td></td><td> </td> 09/25/2020 05:20:00 AM [facility] BLOOD COUNT COMPLETE AUTOMATED <td>CBC</td><td>Routine </td><td>09/25/2020 5:20 AM EST</td><td></td><td> </td> 09/25/2020 05:20:00 AM [facility] PHOSPHORUS INORGANIC <td>PHOSPHORUS LEVEL</td><td >Routine</td><td>09/25/2020 5:20 AM EST</td><td></td><td> </td> 09/25/2020 05:20:00 AM [facility] MAGNESIUM <td>MAGNESIUM LEVEL</td><td> Routine</td><td>09/25/2020 5:20 AM EST</td><td></td><td> </td> 09/25/2020 05:20:00 AM [facility] BASIC METABOLIC PANEL CALCIUM TOTAL <td>BASIC METABOLI C PANEL</td><td>Routine</td><td>09/25/2020 5:20 AM EST</td><td></td><td> </td> 09/25/2020 05:20:00 AM [facility] GLUCOSE QUANTITATIVE BLOOD XCPT REAGENT STRIP <td>POCT GLUCOSE, DOCKED</td><td>Routine</td><td>09/25/2020 4:27 AM EST</td><td></td><td> </td> 09/25/2020 04:27:00 AM [facility] GLUCOSE QUANTITATIVE BLOOD XCPT REAGENT STRIP <td>POCT GLUCOSE, DOCKED</td><td>Routine</td><td>09/25/2020 3:48 AM EST</td><td></td><td> </td> 09/25/2020 03:48:00 AM [facility] GLUCOSE QUANTITATIVE BLOOD XCPT REAGENT STRIP <td>POCT GLUCOSE, DOCKED</td><td>Routine</td><td>09/25/2020 3:17 AM EST</td><td></td><td> </td> 09/25/2020 03:17:00 AM [facility] GLUCOSE QUANTITATIVE BLOOD XCPT REAGENT STRIP <td>POCT GLUCOSE, DOCKED</td><td>Routine</td><td>09/25/2020 2:56 AM EST</td><td></td><td> </td> 09/25/2020 02:56:00 AM [facility] EKG 12-LEAD - CMAXX REPORT <td>EKG 12-LEAD - CMAXX REPORT</td><td></td><td>09/25/2020 2:00 AM EST</td><td></td><td></td> 09/25/2020 02:00:09 AM [facility] EKG 12-LEAD - CMAXX REPORT <td>EKG 12-LEAD - CMAXX REPORT</td><td></td><td>09/25/2020 2:00 AM EST</td><td></td><td></td> 09/25/2020 02:00:09 AM [facility] EKG 12-LEAD <td>EKG 12-LEAD</td><td>Rout ine</td><td>09/25/2020 2:00 AM EST</td><td></td><td> </td> 09/25/2020 02:00:09 AM [facility] BLOOD COUNT COMPLETE AUTOMATED <td>CBC</td><td>Routine </td><td>09/25/2020 12:35 AM EST</td><td></td><td> </td> 09/25/2020 12:35:00 AM [facility] PHOSPHORUS INORGANIC <td>PHOSPHORUS LEVEL</td><td >Routine</td><td>09/25/2020 12:35 AM EST</td><td></td><td> </td> 09/25/2020 12:35:00 AM [facility] MAGNESIUM <td>MAGNESIUM LEVEL</td><td> Routine</td><td>09/25/2020 12:35 AM EST</td><td></td><td> </td> 09/25/2020 12:35:00 AM [facility] BASIC METABOLIC PANEL CALCIUM TOTAL <td>BASIC METABOLI C PANEL</td><td>Routine</td><td>09/25/2020 12:35 AM EST</td><td></td><td> </td> 09/25/2020 12:35:00 AM [facility] GLUCOSE QUANTITATIVE BLOOD XCPT REAGENT STRIP <td>POCT GLUCOSE, DOCKED</td><td>Routine</td><td>09/25/2020 12:29 AM EST</td><td></td><td> </td> 09/25/2020 12:29:00 AM [facility] GLUCOSE QUANTITATIVE BLOOD XCPT REAGENT STRIP <td>POCT GLUCOSE, DOCKED</td><td>Routine</td><td>09/24/2020 11:12 PM EST</td><td></td><td> </td> 09/24/2020 11:12:00 PM [facility] COVID-19 PCR <td>COVID-19 PCR</td><td>Kavon santoyo</td><td>09/24/2020 10:27 PM EST</td><td></td><td> </td> 09/24/2020 10:27:00 PM [facility] GLUCOSE QUANTITATIVE BLOOD XCPT REAGENT STRIP <td>POCT GLUCOSE, DOCKED</td><td>Routine</td><td>09/24/2020 10:24 PM EST</td><td></td><td> </td> 09/24/2020 10:24:00 PM [facility] GLUCOSE QUANTITATIVE BLOOD XCPT REAGENT STRIP <td>POCT GLUCOSE, DOCKED</td><td>Routine</td><td>09/24/2020 9:49 PM EST</td><td></td><td> </td> 09/24/2020 09:49:00 PM [facility] GLUCOSE QUANTITATIVE BLOOD XCPT REAGENT STRIP <td>POCT GLUCOSE, DOCKED</td><td>Routine</td><td>09/24/2020 9:05 PM EST</td><td></td><td> </td> 09/24/2020 09:05:00 PM [facility] GLUCOSE QUANTITATIVE BLOOD XCPT REAGENT STRIP <td>POCT GLUCOSE, DOCKED</td><td>Routine</td><td>09/24/2020 8:26 PM EST</td><td></td><td> </td> 09/24/2020 08:26:00 PM [facility] NATRIURETIC PEPTIDE <td>PROBNP</td><td>Routine</ td><td>09/24/2020 7:02 PM EST</td><td></td><td> </td> 09/24/2020 07:02:00 PM [facility] BLOOD COUNT COMPLETE AUTOMATED <td>CBC</td><td>Routine </td><td>09/24/2020 7:02 PM EST</td><td></td><td> </td> 09/24/2020 07:02:00 PM [facility] TRIIODOTHYRONINE T3 FREE <td>T3, FREE</td><td>Routine </td><td>09/24/2020 7:02 PM EST</td><td></td><td> </td> 09/24/2020 07:02:00 PM [facility] THYROXINE FREE <td>T4, FREE</td><td>Routine </td><td>09/24/2020 7:02 PM EST</td><td></td><td> </td> 09/24/2020 07:02:00 PM [facility] PHOSPHORUS INORGANIC <td>PHOSPHORUS LEVEL</td><td >Routine</td><td>09/24/2020 7:02 PM EST</td><td></td><td> </td> 09/24/2020 07:02:00 PM [facility] MAGNESIUM <td>MAGNESIUM LEVEL</td><td> Routine</td><td>09/24/2020 7:02 PM EST</td><td></td><td> </td> 09/24/2020 07:02:00 PM [facility] HEMOGLOBIN GLYCOSYLATED A1C <td>HEMOGLOBIN A1C</td><td>Routine</td><td>09/24/2020 7:02 PM EST</td><td></td><td> </td> 09/24/2020 07:02:00 PM [facility] BASIC METABOLIC PANEL CALCIUM TOTAL <td>BASIC METABOLI C PANEL</td><td>Routine</td><td>09/24/2020 7:02 PM EST</td><td></td><td> </td> 09/24/2020 07:02:00 PM [facility] GLUCOSE QUANTITATIVE BLOOD XCPT REAGENT STRIP <td>POCT GLUCOSE, DOCKED</td><td>Routine</td><td>09/24/2020 6:49 PM EST</td><td></td><td> </td> 09/24/2020 06:49:00 PM [facility] EKG 12-LEAD - CMAXX REPORT <td>EKG 12-LEAD - CMAXX REPORT</td><td></td><td>09/24/2020 5:55 PM EST</td><td></td><td></td> 09/24/2020 05:55:51 PM [facility] EKG 12-LEAD - CMAXX REPORT <td>EKG 12-LEAD - CMAXX REPORT</td><td></td><td>09/24/2020 5:55 PM EST</td><td></td><td></td> 09/24/2020 05:55:51 PM [facility] EKG 12-LEAD <td>EKG 12-LEAD</td><td>Rout ine</td><td>09/24/2020 5:55 PM EST</td><td></td><td> </td> 09/24/2020 05:55:51 PM EST [facility] POCT AMB EKG <td>POCT AMB EKG</td><td>Kavon santoyo</td><td>09/01/2020 4:39 PM EST</td><td> Chronic combined systolic and diastolic congestive heart failure</td><td> </td> 09/01/2020 09:39:00 PM EST Chronic combined systolic and diastolic congestive hea rt failure [facility] Chronic combined systolic and diastolic congestive heart failure BLOOD COUNT COMPLETE AUTO&AUTO DIFRNTL WBC COUNT <td>C BC AND DIFFERENTIAL</td><td>Routine</td><td>07/26/2020</td><td></td><td> </td> 07/26/2020 12:00:00 AM EST [facility] HEPATIC FUNCTION PANEL <td>HEPATIC FUNCTION PANEL</td><td>Routine</td><td>07/26/2020</td><td></td><td> </td> 07/26/2020 12:00:00 AM EST [facility] BASIC METABOLIC PANEL CALCIUM TOTAL <td>BASIC METABOLI C PANEL</td><td>Routine</td><td>07/26/2020</td><td></td><td> </td> 07/26/2020 12:00:00 AM EST [facility] BLOOD COUNT COMPLETE AUTO&AUTO DIFRNTL WBC COUNT <td>C BC AND DIFFERENTIAL</td><td>Routine</td><td>06/16/2020</td><td></td><td> </td> 06/16/2020 12:00:00 AM EDT [facility] HEPATIC FUNCTION PANEL <td>HEPATIC FUNCTION PANEL</td><td>Routine</td><td>06/16/2020</td><td></td><td> </td> 06/16/2020 12:00:00 AM EDT [facility] BASIC METABOLIC PANEL CALCIUM TOTAL <td>BASIC METABOLI C PANEL</td><td>Routine</td><td>06/16/2020</td><td></td><td> </td> 06/16/2020 12:00:00 AM EDT [facility] Results ID Date Data Source [id number] 06/02/2021 11:22:00 AM EDT [facility] ([facility]) Name Value Range Interpretation Code Description Data Devi rce(s) Supporting Document(s) Laboratory test finding (navigational concept) Laboratory test r esult Normal (applies to non-numeric results) [facility] <content>FULL REPORT IN LAB [...] FOR ESBL</content>
<content></content> ID Date Data Source [id number] 05/30/2021 12:01:00 PM EDT [facility] ([facility]) Name Value Range Interpretation Code Description Data Devi rce(s) Supporting Document(s) Hemoglobin A1c/Hemoglobin.total in Blood 5.7 % 3.6-6.9 [facility]) <content>Hgb A1c Interpretation:</conten t>
<content><5.8% - Non- diabetic</content>
<content>>6.5% - Diabetic</content>
<content><7.0% - ADA diabetic treatment goal</content>
<content></content> Thyrotropin [Units/volume] in Serum or Plasma 9.514 mIU/ml 0. 350-5.500 Above high normal [facility] ([facility]) not fasting Urate [Mass/volume] in Serum or Plasma 10.7 mg/dL 2.6-7.2 Above hi gh normal [facility] ([facility]) not fasting Venipuncture Laboratory test result [facility] ([facility]) not fasting Glucose mean value [Mass/volume] in Blood Estimated fr om glycated hemoglobin 117 mg/dL [facility] The Estimated Average Glucose is a calcu lation of the average glucose over the last 120 days including non-fasting as well as fasting levels. Vitamin D+Metabolites [Mass/volume] in Serum or Plasma 23.68 ng/ mL 30-100 Below low normal [facility] ([facility]) <content>Recommended Levels for Circulat ing 25-hydroxy Vitamin D:</content>
<content>Vitamin D Status 25-OH Vitamin D Test Result</content>
<content>Deficient <10ng/mL</content>
<content>Insufficient 10- 29ng/mL</content>
<content>Sufficient 30-100ng/mL</content>
<content>Potential Intoxication >100ng/mL</content>
<content>A pediatric reference range has not been established using this method.</content>
<content></content> ID Date Data Source [id number] 05/30/2021 12:01:00 PM EDT [facility] Name Value Range Interpretation Code Description Data Devi rce(s) Supporting Document(s) Cholesterol [Mass/volume] in Serum or Plasma 154 mg/dL 0-200 [facility] ([facility]) Cholesterol in HDL [Mass/volume] in Serum or Plasma 68 mg/dL 40-60 Above high normal [facility] ([facility]) Triglyceride [Mass/volume] in Serum or Plasma 58 mg/dL 0-249 [facility] ([facility]) <content>National Cholesterol Education Program (NCEP) Guidelines:</content>
<content>Recommended Range <150 mg/dL</content>
<content></content> Cholesterol in LDL [Mass/volume] in Serum or Plasma by calcu lation 74 mg/dL 0-130 [facility] ([facility]) VLDL 12 mg/dL 0-28 [facility]) Cardiac Risk 2.26 Ratio 3.7-5.3 Below low normal [facility] ([facility]) ID Date Data Source [id number] 05/30/2021 12:01:00 PM EDT [facility]) Name Value Range Interpretation Code Description Data Devi rce(s) Supporting Document(s) Urea nitrogen [Moles/volume] in Serum or Plasma 78 mg/dL 6-20 Record coming over is a correction and thus replaces a final result [facility] ([facility]) Results Confirmed by Repeat Analysis. Tried to call no answer [phone] lori Consistent with previous results [facility] and transmitted [phone] lori 05/30/2021 Glucose [Mass/volume] in Serum or Plasma 102 mg/dL 74-106 [facility] ([facility]) [place] [employer] (ADA) Recommended Range is 65-99 mg/dL Sodium [Moles/volume] in Serum or Plasma 137 mmol/L 136-145 [facility] ([facility]) Potassium [Moles/volume] in Serum or Plasma 4.5 mmol/L 3.5-5.3 [facility] ([facility]) Creatinine [Mass/volume] in Serum or Plasma 4.6 mg/dL 0.5-1.3 Above high normal [facility] ([facility]) Carbon dioxide, total [Moles/volume] in Serum or Plasma 18 meq/L 20-31 Below low normal [facility] ([facility]) Chloride [Moles/volume] in Serum or Plasma 108 mmol/L 98-107 Above high normal [facility] ([facility]) eGFR-male 12 mL/m/1.73m [facility]) Anion Gap 11 mmol/L 7-16 [facility]) eGFR-Aa male 15 mL/m/1.73m [facility] <content>Normal Kidney Function or Mild Disease GFR >59 mL/min/1.73m2</content>
<content>Chronic Kidney Disease GFR 15-59 mL/min/1.73m2</content>
<content>Renal Failure GFR <15 mL/min/1.73m2</content>
<content></content> Alkaline phosphatase [Enzymatic activity/volume] in Serum or Plasma 64 U/L 46-116 [facility] ([facility]) Alanine aminotransferase [Enzymatic activity/volume] in Seru m or Plasma 16 U/L 4-36 [facility] ([facility]) Effective 02/23/2017: [facility] has indicated interference with the drugs sulfasalazine and sulfapyridine. They suggest collection should occur prior to drug administration due to falsely depressed results. Aspartate aminotransferase [Enzymatic activity/volume] in Serum or Plasma 16 U/L 8-33 [facility]) Albumin [Mass/volume] in Serum or Plasma 3.6 g/dL 3.6-5.1 [facility] ([facility]) Bilirubin.total [Mass/volume] in Serum or Plasma 0.2 mg/dL 0.3-1.2 Below low normal [facility] ([facility]) Protein [Mass/volume] in Serum or Plasma 5.9 g/dL 6.4-8.3 Below low normal [facility] ([facility]) Results may reflect a potential interfer ence in Total Protein results in patients receiving dextran as blood volume expanders. Albumin/Globulin [Mass Ratio] in Serum or Plasma 1.6 Ratio 1.0-2.0 [facility] ([facility]) Globulin [Mass/volume] in Serum by calculation 2.3 g/dL 1.9-3.7 [facility] ([facility]) Calcium [Mass/volume] in Serum or Plasma 8.0 mg/dL 8.9-10.5 Below low normal [facility] ([facility]) ID Date Data Source [id number] 05/30/2021 12:01:00 PM EDT [facility] Name Value Range Interpretation Code Description Data Devi rce(s) Supporting Document(s) Cobalamin (Vitamin B12) [Mass/volume] in Serum or Plasma 8765 pg /mL 211-911 Above high normal [facility] ([facility]) Results Confirmed on Dilution. ID Date Data Source [id number] 05/30/2021 12:01:00 PM EDT [facility] Name Value Range Interpretation Code Description Data Devi rce(s) Supporting Document(s) WBC. 3.80 x10E3/uL 4.2-12.0 Below low normal [facility]) Erythrocytes [#/volume] in Blood by Automated count 2.64 x10E6/u L 4.4-6.0 Below low normal [facility] ([facility]) Hemoglobin [Mass/volume] in Blood 8.3 g/dL 13.8-18.0 Below low nor mal [facility] ([facility]) MCH 31.5 pg 27-33 [facility]) Hematocrit [Volume Fraction] of Blood by Automated count 26.9 % 39-52 Below low normal [facility] ([facility]) MCV 102.0 fL 80-98 Above high normal [facility] Platelets [#/volume] in Blood by Automated count 283 x10E3/uL 135-420 [facility] ([facility]) MCHC 30.9 g/dL 32-36 Below low normal [facility] ([facility]) RDW 16.5 % 11.2-15.2 Above high normal [facility] % Indra 79.8 % 41.0-80.0 [facility]) %Lym 15.4 % 10.0-45.2 [facility]) MPV 8.9 fL 7.0-12.3 [facility]) Eosinophils [#/volume] in Blood by Automated count 1.0 % 0.0-8.0 [facility] ([facility]) %[place] 3.6 % 2.0-13.0 [facility]) %Baso 0.2 % 0.0-3.0 [facility]) [place] 0.1 x10E3/uL 0.0-1.0 [facility] Neut 3.0 x10E3/uL 2.0-8.1 [facility]) Lymp 0.6 x10E3/uL 0.6-3.1 [facility]) Baso 0.0 x10E3/uL 0.0-0.2 [facility]) Eos 0.0 x10E3/uL 0.0-0.6 [facility]) ID Date Data Source [id number] 05/24/2021 06:24:00 PM EDT [facility] ([facility]) Name Value Range Interpretation Code Description Data Devi rce(s) Supporting Document(s) Blood Urea Nitrogen 63 mg/dL 7-18 Above high normal [facility] ([facility]) Glucose, Fasting 89 mg/dL 70-100 Normal (applies to non-numeric results) [facility] ([facility]) Creatinine For GFR 3.87 mg/dL 0.70-1.30 Above high normal [facility] ([facility]) Glomerular Filtration Rate 15.7 Below low normal [facility] ([facility]) <content>Units are mL/min/1.73 m2</content>
<content></content>
<content>Chronic Kidney Disease Staging per NKF:</content>
<content></content>
<content>Stage I & II GFR >=60 Normal to Mildly Decreased</content>
<content>Stage III GFR 30- 59 Moderately Decreased</content>
<content>Stage IV GFR 15-29 Severely Decreased</content>
<content>Stage V GFR <15 Very Little GFR Left</content>
<content>ESRD GFR <15 on SLAB OFF MILL TENDER</content>
<content></content> Potassium Serum 5.0 meq/L 3.5-5.1 Normal (applies to non-numeric results) [facility] ([facility]) Chloride Level 110 meq/L 98-107 Above high normal [facility] ([facility]) Sodium Level 139 meq/L 136-145 Normal (applies to non-numeric res ults) [facility] ([facility]) Anion Gap 10 meq/L 8-16 Normal (applies to non-numeric resul ts) [facility] ([facility]) Calcium Level 7.5 mg/dL 8.8-10.2 Below low normal [facility] ([facility]) Carbon Dioxide Level 19 meq/L 21-32 Below low normal [facility] ([facility]) Alt/SGPT 19 U/L 12-78 Normal (applies to non-numeric resul ts) [facility] ([facility]) Alkaline Phosphatase 74 U/L 45-117 Normal (applies to non-num jerrod results) [facility] ([facility]) Ast/Sgot 14 U/L 7-37 Normal (applies to non-numeric resul ts) [facility] ([facility]) Albumin 2.2 GM/DL 3.2-5.2 Below low normal [facility] ([facility]) Total Protein 5.6 GM/DL 6.4-8.2 Below low normal [facility] ([facility]) Bilirubin,Total 0.3 mg/dL 0.2-1.0 Normal (applies to non-numeric results) [facility] ([facility]) Albumin/Globulin Ratio 0.6 Normal (applies to non-n umeric results) [facility]) ID Date Data Source [id number] 05/24/2021 06:24:00 PM EDT [facility] ([facility]) Name Value Range Interpretation Code Description Data Devi rce(s) Supporting Document(s) White Blood Count 7.0 10 4.0-10.0 Normal (applies to non-numeri c results) [facility]) Red Blood Count 2.56 10 4.30-6.10 Below low normal [facility] ([facility]) Hematocrit 25.1 % 42.0-52.0 Below low normal [facility] ([facility]) Hemoglobin 8.1 g/dL 13.5-17.5 Below low normal [facility] ( [facility]) Mean Corpuscular Hemoglobin 31.6 pg 27.0-33.0 Norm al (applies to non-numeric results) [facility] ([facility]) Mean Corpuscular HGB Conc 32.3 g/dL 32.0-36.5 Normal (applies to non-numeric results) [facility] ([facility]) Mean Corpuscular Volume 98.0 fl 80.0-96.0 Above high normal [facility] ([facility]) Neutrophils % 86.6 % 36.0-66.0 Above high normal [facility] ([facility]) Platelet Count, Automated 226 10 150-450 Normal (applies to non-numeric results) [facility] ([facility]) Red Cell Distribution Width 15.8 % 11.5-14.5 Above high normal [facility] ([facility]) Lymph % 7.1 % 24.0-44.0 Below low normal [facility]) [place] % 4.7 % 2.0-8.0 Normal (applies to non-numeric resul ts) [facility] ([facility]) Eos % 0.7 % 0.0-3.0 Normal (applies to non-numeric resul ts) [facility] ([facility]) Immature Granulocyte % 0.6 % 0-3.0 Normal (applies to non-n umeric results) [facility] ([facility]) Baso % 0.3 % 0.0-1.0 Normal (applies to non-numeric resul ts) [facility] ([facility]) Nucleated Red Blood Cell % 0.0 % 0-0 Normal (applies to n on-numeric results) [facility] ([facility]) Lymph # 0.5 10 1.5-5.0 Below low normal [facility] Neutrophils # 6.1 10 1.5-8.5 Normal (applies to non-numeric re sults) [facility] ([facility]) [place] # 0.3 10 0.0-0.8 Normal (applies to non-numeric resul ts) [facility] ([facility]) Eos # 0.1 10 0.0-0.5 Normal (applies to non-numeric resul ts) [facility] ([facility]) Baso # 0.0 10 0.0-0.2 Normal (applies to non-numeric resul ts) [facility]) ID Date Data Source [id number] 05/11/2021 05:28:00 PM EDT [facility] Name Value Range Interpretation Code Description Data Devi rce(s) Supporting Document(s) SARS COVID ANTIGEN NEGATIVE [facility] This lab was ordered by [facility] a nd reported by [facility]. ID Date Data Source [id number] 05/11/2021 11:19:00 AM EDT [facility] Name Value Range Interpretation Code Description Data Devi rce(s) Supporting Document(s) SARS coronavirus 2 RNA [Presence] in Res piratory specimen by [facility] with probe detection NEGATIVE [facility] This lab was ordered by [facility] a nd reported by [facility]. ID Date Data Source [id number] 04/19/2021 04:35:00 PM EDT [facility] ([facility]) Name Value Range Interpretation Code Description Data Devi rce(s) Supporting Document(s) Urea nitrogen [Moles/volume] in Serum or Plasma 85 mg/dL 6-20 Record coming over is a correction and thus replaces a final result [facility] ([facility]) Results Confirmed by Repeat Analysis. Results faxed at 1053 04/20/21 kk Called to Lauren at 1053 04/20/21 kk Glucose [Mass/volume] in Serum or Plasma 94 mg/dL 74-106 [facility]) [place] [employer] (ADA) Recommended Range is 65-99 mg/dL Creatinine [Mass/volume] in Serum or Plasma 5.6 mg/dL 0.5- 1.3 Record coming over is a correction and thus replaces a final result [facility] ([facility]) Results Confirmed by Repeat Analysis. Results faxed at 1053 04/20/21 kk Called to Lauren at 1053 04/20/21 kk Potassium [Moles/volume] in Serum or Plasma 3.6 mmol/L 3.5-5.3 [facility] ([facility]) Sodium [Moles/volume] in Serum or Plasma 132 mmol/L 136-145 Below low normal [facility] ([facility]) Results Confirmed by Repeat Analysis. [...] m or Plasma 19 U/L 4-36 [facility] ([facility]) Effective 02/23/2017: Tbricks has indicated interference with the drugs sulfasalazine and sulfapyridine. They suggest collection should occur prior to drug administration due to falsely depressed results. Aspartate aminotransferase [Enzymatic activity/volume] in Serum or Plasma 26 U/L 8-33 [facility]) Bilirubin.total [Mass/volume] in Serum or Plasma 0.3 mg/dL 0.3-1.2 [facility] ([facility]) Protein [Mass/volume] in Serum or Plasma 5.4 g/dL 6.4-8.3 Below low normal [facility] ([facility]) Results may reflect a potential interfer ence in Total Protein results in patients receiving dextran as blood volume expanders. Albumin [Mass/volume] in Serum or Plasma 3.0 g/dL 3.6-5.1 Below low normal [facility] ([facility]) Globulin [Mass/volume] in Serum by calculation 2.4 g/dL 1.9-3.7 [facility] ([facility]) Albumin/Globulin [Mass Ratio] in Serum or Plasma 1.3 Ratio 1.0-2.0 [facility] ([facility]) Calcium [Mass/volume] in Serum or Plasma 7.8 mg/dL 8.9-10.5 Below low normal [facility] ([facility]) ID Date Data Source [id number] 04/19/2021 04:35:00 PM EDT [facility]) Name Value Range Interpretation Code Description Data Devi rce(s) Supporting Document(s) Hemoglobin [Mass/volume] in Blood 11.0 g/dL 13.8-18.0 Below low nor mal [facility] ([facility]) WBC. 8.30 x10E3/uL 4.2-12.0 [facility] Erythrocytes [#/volume] in Blood by Automated count 3.61 x10E6/u L 4.4-6.0 Below low normal [facility] ([facility]) 1+ Ovalocytes 2+ Anisocytosis 1+ Hypochromasia Hematocrit [Volume Fraction] of Blood by Automated count 34.8 % 39-52 Below low normal [facility] ([facility]) MCV 96.4 fL 80-98 [facility] ([facility]) MCH 30.6 pg 27-33 [facility] ([facility]) Platelets [#/volume] in Blood by Automated count 247 x10E3/uL 135-420 [facility] ([facility]) RDW 14.8 % 11.2-15.2 [facility] ([facility]) MCHC 31.7 g/dL 32-36 Below low normal [facility] ([facility]) MPV 8.1 fL 7.0-12.3 [facility] ([facility]) %Lym 4.6 % 10.0-45.2 Below low normal [facility] ([facility]) % Indra 93.0 % 41.0-80.0 Above high normal [facility]) %[place] 2.1 % 2.0-13.0 [facility] ([facility]) Eosinophils [#/volume] in Blood by Automated count 0.1 % 0.0-8.0 [facility] ([facility]) %Baso 0.1 % 0.0-3.0 [facility] ([facility]) Neut 7.7 x10E3/uL 2.0-8.1 [facility]) [place] 0.2 x10E3/uL 0.0-1.0 [facility]) Lymp 0.4 x10E3/uL 0.6-3.1 Below low normal [facility]) Baso 0.0 x10E3/uL 0.0-0.2 [facility] Eos 0.0 x10E3/uL 0.0-0.6 [facility]) ID Date Data Source [id number] 04/19/2021 04:35:00 PM EDT [facility] ([facility]) Name Value Range Interpretation Code Description Data Devi rce(s) Supporting Document(s) Natriuretic peptide B [Mass/volume] in Serum or Plasma 1015.8 pg /mL 0-100 Above high normal [facility] ([facility]) ID Date Data Source [id number] 04/19/2021 04:35:00 PM EDT [facility] ([facility] [...] 0 % 1-5 Below low normal [facility] Basophils 0 % 1-3 Below low normal [facility] ([facility]) Atyp Lymph 1 % [facility] ID Date Data Source [id number] 04/19/2021 04:35:00 PM EDT [facility] ([facility]) Name Value Range Interpretation Code Description Data Devi rce(s) Supporting Document(s) Venipuncture Laboratory test result [facility] NT ([facility]) ID Date Data Source [id number] 04/04/2021 07:29:00 PM EDT [facility] ([facility]) Name Value Range Interpretation Code Description Data Devi rce(s) Supporting Document(s) Laboratory test finding (navigational concept) Laboratory test r esult Normal (applies to non-numeric results) [facility] ([facility]) Negative results do not preclude influen za or RSV virus infection and should not be used as the sole basis for treatment or other patient management decisions. Laboratory test finding (navigational concept) Laboratory test r esult Normal (applies to non-numeric results) [facility] ([facility]) Negative results do not preclude influen za or RSV virus infection and should not be used as the sole basis for treatment or other patient management decisions. Laboratory test finding (navigational concept) Laboratory test r esult Normal (applies to non-numeric results) [facility] ([facility]) Negative results do not preclude influen za or RSV virus infection and should not be used as the sole basis for treatment or other patient management decisions. Laboratory test finding (navigational concept) Laboratory test r esult Normal (applies to non-numeric results) [facility] ([facility]) A false negative result may occur [...] pathogens. DISCLAIMER: Testing was performed using the Expert SARS-CoV-2 test. This test was developed and its performance characteristics determined by [facility]. This test has not been FDA cleared [...] or revoked sooner. ID Date Data Source [id number] 04/04/2021 07:29:00 PM EDT [facility] Name Value Range Interpretation Code Description Data Devi rce(s) Supporting Document(s) SARS coronavirus 2 RNA [Presence] in Res piratory specimen by BEKA with probe detection [facility]GAT[facility] This lab was ordered by [facility] a nd reported by [facility]. ID Date Data Source [id number] 04/04/2021 05:11:00 PM EDT [facility] ([facility]) Name Value Range Interpretation Code Description Data Devi rce(s) Supporting Document(s) Magnesium [Mass/volume] in Serum or Plasma 1.5 mg/dL 1.8-2.4 [place] w low normal [facility] ([facility]) Natriuretic peptide.B prohormone N-Terminal [Mass/volu me] in Serum or Plasma 8105 pg/mL Above high normal [facility] ([facility]) Thyrotropin [Units/volume] in Serum or Plasma 3.550 uIU/ML 0. 358-3.740 Normal (applies to non-numeric results) [facility] ID Date Data Source [id number] 04/04/2021 05:11:00 PM EDT [facility] Name Value Range Interpretation Code Description Data Devi rce(s) Supporting Document(s) Glucose, Fasting 95 mg/dL 70-100 Normal (applies to non-numeric results) [facility] ([facility]) Blood Urea Nitrogen 130 mg/dL 7-18 Above high normal [facility] ([facility]) Creatinine For GFR 8.50 mg/dL 0.70-1.30 Above upper panic limits [facility] ([facility]) Glomerular Filtration Rate 6.4 Below low normal [facility] ([facility]) <content>Units are mL/min/1.73 m2</content>
<content></content>
<content>Chronic Kidney Disease Staging per NKF:</content>
<content></content>
<content>Stage I & II GFR >=60 Normal to Mildly Decreased</content>
<content>Stage III GFR 30- 59 Moderately Decreased</content>
<content>Stage IV GFR 15-29 Severely Decreased</content>
<content>Stage V GFR <15 Very Little GFR Left</content>
<content>ESRD GFR <15 on SLAB OFF MILL TENDER</content>
<content></content> Potassium Serum 4.5 meq/L 3.5-5.1 Normal (applies to non-numeric results) [facility] ([facility]) Sodium Level 135 meq/L 136-145 Below low normal [facility] ([facility]) Anion Gap 10 meq/L 8-16 Normal (applies to non-numeric resul ts) [facility] ([facility]) Carbon Dioxide Level 20 meq/L 21-32 Below low normal [facility] ([facility]) Chloride Level 105 meq/L 98-107 Normal (applies to non-numeric r esults) [facility] ([facility]) Calcium Level 8.3 mg/dL 8.8-10.2 Below low normal [facility] T ([facility]) ID Date Data Source [id number] 04/04/2021 05:11:00 PM EDT [facility]) Name Value Range Interpretation Code Description Data Devi rce(s) Supporting Document(s) Alt/SGPT 18 U/L 12-78 Normal (applies to non-numeric resul ts) [facility] ([facility]) Ast/Sgot 10 U/L 7-37 Normal (applies to non-numeric resul ts) [facility] ([facility]) Alkaline Phosphatase 100 U/L 45-117 Normal (applies to non-num jerrod results) [facility]) Bilirubin,Total 0.3 mg/dL 0.2-1.0 Normal (applies to non-numeric results) [facility] ([facility]) Bilirubin,Direct 0.1 mg/dL 0.0-0.2 Normal (applies to non-numeric results) [facility] ([facility]) Albumin 2.8 GM/DL 3.2-5.2 Below low normal [facility]) Total Protein 6.0 GM/DL 6.4-8.2 Below low normal [facility] T ([facility]) Albumin/Globulin Ratio 0.9 Normal (applies to non-n umeric results) [facility] ID Date Data Source [id number] 04/04/2021 05:11:00 PM EDT [facility]) Name Value Range Interpretation Code Description Data Devi rce(s) Supporting Document(s) CPK Creatine Phosphokinase 95 U/L 39-308 Kailee l (applies to non-numeric results) [facility] ([facility]) CK-MB Value Mass 3.3 ng/mL Normal (applies to non-numeric results) [facility]) MB/CK Relative Index 3.47 Normal (applies to non-num jerrod results) [facility]) <content>DIAGNOSIS CRITERIA</content>
<content>MMB ng/ml Relative Index (RI)</content>
<content>NON-AMI < or = 5 N/A</content>
<content>WALTON ZONE > 5 < or = 4</content>
<content>AMI > 5 > 4</content>
<content></content> Troponin I 0.03 ng/mL Normal (applies to non-numeric resul ts) [facility]) <content>Troponin I Reference Interval f or Siemens [place] LOCI:</content>
<content></content>
<content>99th Percentile= 0.00-0.045 ng/ml</content>
<content></content>
<content>Risk Stratification:</content>
<content><= 0.10 ng/ml Decreased Risk for Adverse Clinical</content>
<content>Events.</content>
<content>0.10-1.50 ng/ml Increased Risk for Adverse Clinical</content>
<content>Events. Evaluation of additional</content>
<content>criterion and/or repeat testing in 2-6</content>
<content>hours is suggested to rule out myocardial</content>
<content>damage.</content>
<content>>= 1.50 ng/ml Indicative of Myocardial Injury.</content>
<content></content> ID Date Data Source [id number] 04/04/2021 05:11:00 PM EDT [facility] ([facility]) Name Value Range Interpretation Code Description Data Devi rce(s) Supporting Document(s) Red Blood Count 4.09 10 4.30-6.10 Below low normal [facility] ([facility]) White Blood Count 4.5 10 4.0-10.0 Normal (applies to non-numeri c results) [facility] ([facility]) Hemoglobin 12.3 g/dL 13.5-17.5 Below low normal [facility] ( [facility]) Mean Corpuscular Volume 91.4 fl 80.0-96.0 Normal ( applies to non-numeric results) [facility] ([facility]) Hematocrit 37.4 % 42.0-52.0 Below low normal [facility] ([facility]) Mean Corpuscular HGB Conc 32.9 g/dL 32.0-36.5 Normal (applies to non-numeric results) [facility] ([facility]) Mean Corpuscular Hemoglobin 30.1 pg 27.0-33.0 Norm al (applies to non-numeric results) [facility]) Red Cell Distribution Width 14.7 % 11.5-14.5 Above high normal [facility]) Neutrophils % 82.9 % 36.0-66.0 Above high normal [facility] NT ([facility]) Platelet Count, Automated 207 10 150-450 Normal (applies to non-numeric results) [facility]) Lymph % 9.0 % 24.0-44.0 Below low normal [facility] ([facility]) [place] % 7.9 % 2.0-8.0 Normal (applies to non-numeric resul ts) [facility] ([facility]) Baso % 0.0 % 0.0-1.0 Normal (applies to non-numeric resul ts) [facility] ([facility]) Immature Granulocyte % 0.2 % 0-3.0 Normal (applies to non-n umeric results) [facility] ([facility]) Eos % 0.0 % 0.0-3.0 Normal (applies to non-numeric resul ts) [facility] ([facility]) Neutrophils # 3.8 10 1.5-8.5 Normal (applies to non-numeric re sults) [facility] ([facility]) Nucleated Red Blood Cell % 0.0 % 0-0 Normal (applies to n on-numeric results) [facility] ([facility]) [place] # 0.4 10 0.0-0.8 Normal (applies to non-numeric resul ts) [facility] ([facility]) Lymph # 0.4 10 1.5-5.0 Below low normal [facility] ([facility]) Eos # 0.0 10 0.0-0.5 Normal (applies to non-numeric resul ts) [facility] ([facility]) Baso # 0.0 10 0.0-0.2 Normal (applies to non-numeric resul ts) [facility] ([facility]) ID Date Data Source [id number] 01/10/2021 10:36:54 AM EDT [facility] NT INFORMATIONPatient MRN Name Date of Age Gend*PT [id number] Lilian Garner 1930 89 years M ---PT Location Admission Date/Time Visit ID Attending Provider --- --- --- --- EPI ID CSN Admitting Provider [id number] ---Addended by: DADA SULLIVAN on: 01/10/2021 10:36 AM Modules accepted: Level of Service Name Value Range Interpretation Code Description Data Devi rce(s) Supporting Document(s) ID Date Data Source [id number] 12/19/2020 02:04:00 PM EDT [facility] ([facility]) Name Value Range Interpretation Code Description Data Devi rce(s) Supporting Document(s) Venipuncture Laboratory test result [facility] ([facility]) not fasting ID Date Data Source [id number] 12/19/2020 02:04:00 PM EDT [facility] ([facility]) Name Value Range Interpretation Code Description Data Devi rce(s) Supporting Document(s) Cholesterol [Mass/volume] in Serum or Plasma 146 mg/dL 0-200 [facility] ([facility]) Cholesterol in LDL [Mass/volume] in Serum or Plasma by calcu lation 70 mg/dL 0-130 [facility] ([facility]) Cholesterol in HDL [Mass/volume] in Serum or Plasma 59 mg/dL 40-60 [facility] ([facility]) Triglyceride [Mass/volume] in Serum or Plasma 84 mg/dL 0-249 [facility] ([facility]) <content>National Cholesterol Education Program (NCEP) Guidelines:</content>
<content>Recommended Range <150 mg/dL</content>
<content></content> Cardiac Risk 2.47 Ratio 3.7-5.3 Below low normal [facility] ([facility]) VLDL 17 mg/dL 0-28 [facility]) ID Date Data Source [id number] 12/19/2020 02:04:00 PM EDT [facility] Name Value Range Interpretation Code Description Data Devi rce(s) Supporting Document(s) Glucose [Mass/volume] in Serum or Plasma 110 mg/dL 74-106 Above high normal [facility] ([facility]) [place] [employer] Association (ADA) Recommended Range is 65-99 mg/dL Urea nitrogen [Moles/volume] in Serum or Plasma 86 mg/dL 6-20 Record coming over is a correction and thus replaces a final result [facility] ([facility]) Results Confirmed by Repeat Analysis. Results faxed at 437 12/19/20 kk Called to Lauren at 437 12/19/20 kk Potassium [Moles/volume] in Serum or Plasma 4.8 mmol/L 3.5-5.3 [facility] ([facility]) Creatinine [Mass/volume] in Serum or Plasma 3.4 mg/dL 0.5-1.3 Above high normal [facility] ([facility]) Sodium [Moles/volume] in Serum or Plasma 138 mmol/L 136-145 [facility] ([facility]) Anion Gap 9 mmol/L 7-16 [facility] ([facility]) Carbon dioxide, total [Moles/volume] in Serum or Plasma 26 meq/L 20 -31 [facility] ([facility]) Chloride [Moles/volume] in Serum or Plasma 103 mmol/L 98-107 [facility] ([facility]) eGFR-male 17 mL/m/1.73m [facility]) eGFR-Aa male 21 mL/m/1.73m [facility] ([facility]) <content>Normal Kidney Function or Mild Disease GFR >59 mL/min/1.73m2</content>
<content>Chronic Kidney Disease GFR 15-59 mL/min/1.73m2</content>
<content>Renal Failure GFR <15 mL/min/1.73m2</content>
<content></content> Alkaline phosphatase [Enzymatic activity/volume] in Serum or Plasma 81 U/L 46-116 [facility] ([facility]) Bilirubin.total [Mass/volume] in Serum or Plasma 0.4 mg/dL 0.3-1.2 [facility] ([facility]) Alanine aminotransferase [Enzymatic activity/volume] in Seru m or Plasma 18 U/L 4-36 [facility] ([facility]) Effective 02/23/2017: [facility] has indicated interference with the drugs sulfasalazine and sulfapyridine. They suggest collection should occur prior to drug administration due to falsely depressed results. Aspartate aminotransferase [Enzymatic activity/volume] in Serum or Plasma 27 U/L 8-33 [facility] Albumin/Globulin [Mass Ratio] in Serum or Plasma 2.1 Ratio 1.0-2.0 Above high normal [facility] ([facility]) Albumin [Mass/volume] in Serum or Plasma 4.5 g/dL 3.6-5.1 [facility] ([facility]) Protein [Mass/volume] in Serum or Plasma 6.6 g/dL 6.4-8.3 [facility] ([facility]) Results may reflect a potential interfer ence in Total Protein results in patients receiving dextran as blood volume expanders. Globulin [Mass/volume] in Serum by calculation 2.1 g/dL 1.9-3.7 [facility] ([facility]) Calcium [Mass/volume] in Serum or Plasma 9.0 mg/dL 8.9-10.5 [facility] ([facility]) ID Date Data Source [id number] 12/19/2020 02:04:00 PM EDT [facility]) Name Value Range Interpretation Code Description Data Devi rce(s) Supporting Document(s) Cobalamin (Vitamin B12) [Mass/volume] in Serum or Plasma 5251 pg /mL 211-911 Above high normal [facility] ([facility]) Results Confirmed on Dilution. ID Date Data Source [id number] 12/19/2020 02:04:00 PM EDT [facility] ([facility]) Name Value Range Interpretation Code Description Data Devi rce(s) Supporting Document(s) Iron [Mass/volume] in Serum or Plasma 77 ug/dL 50-175 [facility] ([facility]) not fasting Iron binding capacity [Mass/volume] in Serum or Plasma 379 ug/dL 250 -450 [facility] ([facility]) not fasting % Saturation 20 % 13-48 [facility] ([facility]) not fasting Ferritin [Mass/volume] in Serum or Plasma 19 ng/mL 22.0-322.0 Below low normal [facility] ([facility]) not fasting ID Date Data Source [id number] 12/19/2020 02:04:00 PM EDT [facility] ([facility] [...] by Automated count 162 x10E3/uL 135-420 [facility] ([facility]) MPV 9.0 fL 7.0-12.3 [facility] ([facility]) % Indra 73.6 % 41.0-80.0 [facility] ([facility]) %Lym 19.7 % 10.0-45.2 [facility] ([facility]) Eosinophils [#/volume] in Blood by Automated count 2.1 % 0.0-8.0 [facility] ([facility]) %Baso 0.4 % 0.0-3.0 [facility] ([facility]) %[place] 4.2 % 2.0-13.0 [facility] ([facility]) Lymp 1.0 x10E3/uL 0.6-3.1 [facility]) [place] 0.2 x10E3/uL 0.0-1.0 [facility]) Neut 3.9 x10E3/uL 2.0-8.1 [facility]) Baso 0.0 x10E3/uL 0.0-0.2 [facility]) Eos 0.1 x10E3/uL 0.0-0.6 [facility]) ID Date Data Source [id number] 10/30/2020 11:39:00 AM EST [facility] ([facility] [...] and Adults: 0.8 - 1.7 Performed at: [employer] [address] [place] [address] [id number] Gauntlet Pairer: Dmitriy Swenson MD, Phone: [phone] Thyrotropin [Units/volume] in Serum or Plasma 8.360 uIU/ML 0. 358-3.740 Above high normal [facility] ([facility]) ID Date Data Source [id number] 10/30/2020 11:39:00 AM EST [facility]) Name Value Range Interpretation Code Description Data Devi rce(s) Supporting Document(s) Glucose, Fasting 91 mg/dL 70-100 Normal (applies to non-numeric results) [facility] ([facility]) Blood Urea Nitrogen 71 mg/dL 7-18 Above high normal [facility] ([facility]) Creatinine For GFR 3.47 mg/dL 0.70-1.30 Above high normal [facility] ([facility]) Glomerular Filtration Rate 17.9 Below low normal [facility] ([facility]) <content>Units are mL/min/1.73 m2</content>
<content></content>
<content>Chronic Kidney Disease Staging per NKF:</content>
<content></content>
<content>Stage I & II GFR >=60 Normal to Mildly Decreased</content>
<content>Stage III GFR 30- 59 Moderately Decreased</content>
<content>Stage IV GFR 15-29 Severely Decreased</content>
<content>Stage V GFR <15 Very Little GFR Left</content>
<content>ESRD GFR <15 on SLAB OFF MILL TENDER</content>
<content></content> Sodium Level 140 meq/L 136-145 Normal (applies to non-numeric res ults) [facility] ([facility]) Chloride Level 107 meq/L 98-107 Normal (applies to non-numeric r esults) [facility] ([facility]) Potassium Serum 5.3 meq/L 3.5-5.1 Above high normal [facility] ([facility]) Carbon Dioxide Level 28 meq/L 21-32 Normal (applies to non-num jerrod results) [facility] ([facility]) Anion Gap 5 meq/L 8-16 Below low normal [facility] Calcium Level 8.5 mg/dL 8.8-10.2 Below low normal [facility] T ([facility]) ID Date Data Source [id number] 10/30/2020 11:39:00 AM EST [facility] ([facility]) Name Value Range Interpretation Code Description Data Devi rce(s) Supporting Document(s) White Blood Count 3.4 10 4.0-10.0 Below low normal M [facility] ([facility]) Red Blood Count 2.97 10 4.30-6.10 Below low normal [facility] ([facility]) Hemoglobin 9.2 g/dL 13.5-17.5 Below low normal [facility] ( [facility]) Hematocrit 30.4 % 42.0-52.0 Below low normal [facility] ([facility]) Mean Corpuscular Hemoglobin 31.0 pg 27.0-33.0 Norm al (applies to non-numeric results) [facility] ([facility]) Mean Corpuscular Volume 102.4 fl 80.0-96.0 Above high normal [facility] ([facility]) Mean Corpuscular HGB Conc 30.3 g/dL 32.0-36.5 Below low normal [facility] Red Cell Distribution Width 13.7 % 11.5-14.5 Norm al (applies to non-numeric results) [facility] ([facility]) Nucleated Red Blood Cell % 0.0 % 0-0 Normal (applies to n on-numeric results) [facility]) Platelet Count, Automated 163 10 150-450 Normal (applies to non-numeric results) [facility] ([facility]) ID Date Data Source [id number] 10/28/2020 03:30:30 PM EST [facility] Name Value Range Interpretation Code Description Data Devi rce(s) Supporting Document(s) &PDF [facility] QCDSOo4rKvFKYxPj31/DUQmyAFMyg1OeWOevJGj1WTjsKHEsA3WfaNnwDW3KK9BQDXrIVVfNLQ2cHDNo oRX [file] AgICAgICAgICAgICAgICAgICAgICAgICAgICAgICAgICAgICAgICAgICAgICAgICAgICAgICAgICAgIC AgICAgICAgICAgICAgICAgICAgICAgICAgICAgICAgICAgICAgDQogICAgICAgICAgICAgICAgICAgIC AgICAgICAgICAgICAgICAgICAgICAgICAgICAgICAg ICAgICAgICAgICAgICAgICAgICAgICAgICAgICAgICAgICAgICAgICAgICAgICAgDQogICAgICAgICAg ICAgICAgICAgICAgICAgICAgICAgICAgICAgICAgICAgICAgICAgICAgICAgICAgICAgICAgICAgICAg ICAgICAgICAgICAgICAgICAgICAgICAgICAgICAgDQ ogICAgICAgICAgICAgICAgICAgICAgICAgICAgICAgICAgICAgICAgICAgICAgICAgICAgICAgICAgIC AgICAgICAgICAgICAgICAgICAgICAgICAgICAgICAgICAgICAgICAgDQogICAgICAgICAgICAgICAgIC AgICAgICAgICAgICAgICAgICAgICAgICAgICAgICAg ICAgICAgICAgICAgICAgICAgICAgICAgICAgICAgICAgICAgICAgICAgICAgICAgICAgDQogICAgICAg ICAgICAgICAgICAgICAgICAgICAgICAgICAgICAgICAgICAgICAgICAgICAgICAgICAgICAgICAgICAg ICAgICAgICAgICAgICAgICAgICAgICAgICAgICAgIC AgDQogICAgICAgICAgICAgICAgICAgICAgICAgICAgICAgICAgICAgICAgICAgICAgICAgICAgICAgIC AgICAgICAgICAgICAgICAgICAgICAgICAgICAgICAgICAgICAgICAgICAgDQogICAgICAgICAgICAgIC AgICAgICAgICAgICAgICAgICAgICAgICAgICAgICAg ICAgICAgICAgICAgICAgICAgICAgICAgICAgICAgICAgICAgICAgICAgICAgICAgICAgICAgDQogICAg ICAgICAgICAgICAgICAgICAgICAgICAgICAgICAgICAgICAgICAgICAgICAgICAgICAgICAgICAgICAg ICAgICAgICAgICAgICAgICAgICAgICAgICAgICAgIC AgICAgDQogICAgICAgICAgICAgICAgICAgICAgICAgICAgICAgICAgICAgICAgICAgICAgICAgICAgIC KqHFDnHXMqNPLuUJJcQGFqNDQtEFNfIRGjVARrDIOdYJXmFWPfSONaTIUiZAYjWPc1B4sjEIBtWMCiIT 1kQXv7Ed9+FAfJTgXeCKI7ffMwuN8DFW5fi7LnSPbz QYQvw3ZlJOx8II7ZWNJdBImgXK4EYFdwlc6SMKNgATZskOPCi7fvYpPxJRD5OLYoYywcDO4XYMNrQ7ym aoZxOOSeSSUKEOfpBSZJTR4QYoIiP5MmnD97EYKWVy5+WElilsYdSotXVoF3ANDie3JsTRk7MT5JSMJd GJrnQW6NFEThbZ8jNRnoFO1JFrQhHgFtSGPKEsYtL4 9glPMuIVu6V5DsRnHdQQQoNlmlCTYfGSzvZtPaSGDyMaAjFSvyBD7+ID4+KQpvUY0TPZpfhaDrGTEiLf 3ATTNnJJZ4JXZduIQfQBidYTUHUHcgKU2HsOQxAIY8rA9xTMqwRKRgADQlZ7aFSkOdrTwmBC87oCdhyo VsbCBdDQo+Ds7MVA7ji1TuVXo2shArOXzpMQU1AEry YAKxABHqEAQqHYG5YPO7RVPMZlAeLBWlQGBgLKpgRCVsFRAhkm9CBBQiABWjEKKrTsGcVZQmVHYjUPcb HDJwZMV2AwbrJBWqVUMcEN6DEoAvMWUwKPUcCBIwFAKvTFYhhj1MYTXyULXsTqQ7QGNbWYSuRSMoJFco SOOeNAFhTsU0CQIsDYLsQJ9UNtHnISNlOAD7APElSP VuMODpvm0JEFSjUUVeHRFkPUAcHGEmDKUrCVklKCIjKMA3PBv3HCWhVUMqEK9FMrDqRXInKLJfOxOtLT VuPOUbkk1ABYCjZPWvOLA0BgEjHTRcQDDeXWkzWARyGGQ2VFW3AKHsIREqBJ0KPeIdGVErIOO9RUxvCB MpZKMncl8TMFQeSSVzFekvBGHfAXByIUJlJRoiNGMi RQFdHAr1JTEpLGJcAA0LSfGrKNCsETZ1OWQhGKZbHUXlvj1PAQEzOSJoZOvdFEEfZJQkBOQmGXrfWZNy NQH4Ydh6QDYwADFtBK8UIwTnUOgjIBQVNgf3RMavM4j8UIPaEG0TP7Vaj0IzCYugWXDOVKruIQ3briAn DUFqWb4NQ0qHCpg1PuQ8GqKwLHi9H1I7FnbxLhEwJN MkMMP9XnUwSyLoOW0qAUw0GcZeQ7B7RUu0UtT8TXBvOwPbNVM6GKwnSUBlZOWwCeCdNO5WVh9UPlK8LF S0lVUdLa3IODx5XfJRHrSgQL6ZWNb= ID Date Data Source [id number] 10/13/2020 11:11:53 PM EST [facility] Name Value Range Interpretation Code Description Data Devi rce(s) Supporting Document(s) Discharge Summary [facility] QXNIWs1cLbSMBnRw21/TYIzeGBCkl4QeJNgaDKw7OPjqXYGmM1LhTIJ2hI7lOBO9LJrPQpLxBuMuMdE7 lbm [file] ICAgICAgICAgICAgICAgICAgICAgICAgICAgICAgICAgICAgICAgICAgICAgICAgICAgICAgICAgICAg ICAgICAgICAgICAgICAgICAgICAgICAgICAgICAgICAgICANCiAgICAgICAgICAgICAgICAgICAgICAg ICAgICAgICAgICAgICAgICAgICAgICAgICAgICAgIC AgICAgICAgICAgICAgICAgICAgICAgICAgICAgICAgICAgICAgICAgICAgICANCiAgICAgICAgICAgIC AgICAgICAgICAgICAgICAgICAgICAgICAgICAgICAgICAgICAgICAgICAgICAgICAgICAgICAgICAgIC AgICAgICAgICAgICAgICAgICAgICAgICAgICANCiAg ICAgICAgICAgICAgICAgICAgICAgICAgICAgICAgICAgICAgICAgICAgICAgICAgICAgICAgICAgICAg ICAgICAgICAgICAgICAgICAgICAgICAgICAgICAgICAgICAgICANCiAgICAgICAgICAgICAgICAgICAg ICAgICAgICAgICAgICAgICAgICAgICAgICAgICAgIC AgICAgICAgICAgICAgICAgICAgICAgICAgICAgICAgICAgICAgICAgICAgICAgICANCiAgICAgICAgIC AgICAgICAgICAgICAgICAgICAgICAgICAgICAgICAgICAgICAgICAgICAgICAgICAgICAgICAgICAgIC AgICAgICAgICAgICAgICAgICAgICAgICAgICAgICAN CiAgICAgICAgICAgICAgICAgICAgICAgICAgICAgICAgICAgICAgICAgICAgICAgICAgICAgICAgICAg ICAgICAgICAgICAgICAgICAgICAgICAgICAgICAgICAgICAgICAgICANCiAgICAgICAgICAgICAgICAg ICAgICAgICAgICAgICAgICAgICAgICAgICAgICAgIC AgICAgICAgICAgICAgICAgICAgICAgICAgICAgICAgICAgICAgICAgICAgICAgICAgICANCiAgICAgIC AgICAgICAgICAgICAgICAgICAgICAgICAgICAgICAgICAgICAgICAgICAgICAgICAgICAgICAgICAgIC AgICAgICAgICAgICAgICAgICAgICAgICAgICAgICAg ICANCiAgICAgICAgICAgICAgICAgICAgICAgICAgICAgICAgICAgICAgICAgICAgICAgICAgICAgICAg ICAgICAgICAgICAgICAgICAgICAgICAgICAgICAgICAgICAgICAgICAgICANCjw/fCUkZ2bnsCZtdzL0 M0uwVs2EMh2KWT3nc5CiYJMvXPftwpWjGgvLYiFpOS PoLuaXTcm1XQlrHF3EnTWeP5XkT9EuWUdjQC0VYDRqVPDztZFqFCJiMFObCaH2YFKxWQgiVT9NeQEgEW mlEXStZTVrTcJjGWFzWKLlYNBdWJNiKBANHF2HHuMfA2TcmT70DSJTQa4+DQplbmRvYmoNCjMxIDAgb2 YxEJl0NK3UFCXiTbdkr4QrUrWcOENJTNjcOQ3ISGT0 GDJaCBRbEt4ORIZlE141jvSpMI9KOu9MFcJnZB6jho1RDvDiPKUxBsjTEdp5NXyjSC5MwZBwQOcMwLUf qKOnF1VmE6HzoIPlhOSxrSDSMRMqzNFEPOL0zWewdklvVEAeWOYsSj8aVuKcBcPlQUO1JTUoHE9bMTej QE2KPKM1RDmbIPMsONBeB1nYPoNaSIZsTuSvvEauVQ 7HHaKdH0UbdjVhhZAnZMTiTDTOAb1+UZrhcxCpCozUYjJbZLKjl2RjVUo6UD3BQQBxGIgpZJ2SQIVhpG 8mZXhxUF4AOnHrHNYiCLTMYwSuD45rdMKrDAo6O9QbNhYfVZSiMnvaRAPfNPyqNqPqIEJxCsTcPXubTP 4+ID4+ZHsrIS4USSaydoCvSBQrOs5HXDWwXTAfBK1b LOBkPLTgJ9T3nGjbRVPVWdKxU3fjqkysUI6iWRIjC776lOaqauAdGPJuERAbKc9ONMIaIMY8TKMcbEHp EwXkTAAUHRajSU2XpRIqAEE0pA5aIEorOZLbWFTgO9iDVtGnjFzrVJ52aIyewsXafKTgQXu+Us3LDQ7a y2JjNOy3bxGoTVgiUEO7OJmdIZBvGKFiJKKtEHR6DX U5ZXFVMyHuQVMgBUJkYVpsZFQeXRSsro8EAJDiCLHpYMU6QCXwDPCvENXbFFsmNENtEKP9FiW6AWXqHW MmWA0WLqQqYGNpMTLhDCzzULLsIMFmdu6KCASeZGBeWJW6CoSpVRElWSKhBPeeGDKcMRP9HfkvBNRkFP DxOE7WEhWaDJYoTBl7TXMlCXNlNZLvcn0SUPTbQCJa QEIxGJOyKNXdPRHcXCvhNTHtJUUxUEVhLDHqQVGpRK9DZfFaNLRsTEH8NEShZMJqDGWahs3QNICbWTEp CzS6JLNcDTGfHKJyBQkvSKRaXABsZum9OUCtPQXcJA8OKwImSVSoJSTkDcsdMYEhBHOwes7YJVFtZQTn VRTsIARcELXmHWTaQRzsZTInYAI5VjH0MJNcZXUgYL 5GQwKrMZOkPHZ5PdXkRMBiCOWkqp6WYWXvWUVwYZb4DACwOUObFXNbWWqjIJJeTCK2KUG8SEEyJHEsGS 5FGpWuYXExACO5JzSiOVOaQZChry6BBPBeHNPpVnMlOcCeRIAjAEHyNGceHOKpTGQ3UwP2OOOdAGYrNH 9ZQaUzQTUvOSkoTfLjSTJjGRIeme0SARKkERZuXJN1 UATkAOHpCXEgFAeaCSPqZCC3LsJeUKPfXYRvIT9JXtVeTGFgQfO9VRNbYPPyBMFobp3QZBGyAEZqZegu LPRgJVUmFVXkDZmnNDCnSZZ1GHE6RXXdXPLmVV6WTgRmKHHfOpWdICTjXPMmRFNwkh8PUDPbDWJoRKBy BbKfROJlHEHlVDppRKFpCJT3VTO7DQWbWBXfSD9IFq LfIHOsNsBwPpMqOBBzXMIvls5IBTYjTUBgNmW0ZAGsVXLqTMSwPKfdHLCqJSG3OBJ3RYBqTEBhAN3UXl MwRDfaOYPIRfm2EEhiC2v1NNLnVK6OI6Aqn8CiVjVdNQOWPYfuQC7isnSfCSRmLd3DJ9vUUoeoCtYhNH UtBBInESX7FbMyOHq1KiL0JvS3XBUpXvLnLk4aSKRm AvLwBLA4KVI3PGAvAGFcKKZlIOzlQHI7L5VhApPuUbXmIA2KMb0BAoO7TMB6iRIyCw8WDrD8MSqELvAk WI6BZGu= ID Date Data Source [id number] 10/09/2020 09:31:00 AM EST [facility] ([facility]) Name Value Range Interpretation Code Description Data Devi rce(s) Supporting Document(s) Red Blood Count 2.81 10 4.30-6.10 Below low normal [facility] ([facility]) White Blood Count 6.5 10 4.0-10.0 Normal (applies to non-numeri c results) [facility] ([facility]) Hemoglobin 8.8 g/dL 13.5-17.5 Below low normal [facility] ( [facility]) Hematocrit 28.2 % 42.0-52.0 Below low normal [facility] ([facility]) Mean Corpuscular Hemoglobin 31.3 pg 27.0-33.0 Norm al (applies to non-numeric results) [facility] ([facility]) Mean Corpuscular Volume 100.4 fl 80.0-96.0 Above high normal [facility] ([facility]) Mean Corpuscular HGB Conc 31.2 g/dL 32.0-36.5 Below low normal [facility] ([facility]) Red Cell Distribution Width 14.6 % 11.5-14.5 Above high normal [facility] ([facility]) Platelet Count, Automated 233 10 150-450 Normal (applies to non-numeric results) [facility] ([facility]) Lymph % 12.6 % 24.0-44.0 Below low normal [facility] ([facility]) Neutrophils % 79.3 % 36.0-66.0 Above high normal [facility] ([facility]) Baso % 0.3 % 0.0-1.0 Normal (applies to non-numeric resul ts) [facility] ([facility]) Eos % 3.6 % 0.0-3.0 Above high normal [facility] ([facility]) [place] % 3.9 % 2.0-8.0 Normal (applies to non-numeric resul ts) [facility] ([facility]) Nucleated Red Blood Cell % 0.0 % 0-0 Normal (applies to n on-numeric results) [facility] ([facility]) Immature Granulocyte % 0.3 % 0-3.0 Normal (applies to non-n umeric results) [facility] ([facility]) Neutrophils # 5.1 10 1.5-8.5 Normal (applies to non-numeric re sults) [facility] ([facility]) Lymph # 0.8 10 1.5-5.0 Below low normal [facility] ([facility]) [place] # 0.3 10 0.0-0.8 Normal (applies to non-numeric resul ts) [facility] ([facility]) Eos # 0.2 10 0.0-0.5 Normal (applies to non-numeric resul ts) [facility] ([facility]) Baso # 0.0 10 0.0-0.2 Normal (applies to non-numeric resul ts) [facility] ([facility]) ID Date Data Source [id number] 10/09/2020 09:31:00 AM EST [facility] ([facility]) Name Value Range Interpretation Code Description Data Devi rce(s) Supporting Document(s) Natriuretic peptide.B prohormone N-Terminal [Mass/volu me] in Serum or Plasma 63695 pg/mL Above high normal [facility] ([facility]) ID Date Data Source [id number] 10/09/2020 09:31:00 AM EST [facility] ([facility]) Name Value Range Interpretation Code Description Data Devi rce(s) Supporting Document(s) Glucose, Fasting 97 mg/dL 70-100 Normal (applies to non-numeric results) [facility] ([facility]) Creatinine For GFR 3.95 mg/dL 0.70-1.30 Above high normal [facility] ([facility]) Blood Urea Nitrogen 65 mg/dL 7-18 Above high normal [facility]) Sodium Level 141 meq/L 136-145 Normal (applies to non-numeric res ults) [facility]) Glomerular Filtration Rate 15.4 Below low normal [facility] ([facility]) <content>Units are mL/min/1.73 m2</content>
<content></content>
<content>Chronic Kidney Disease Staging per NKF:</content>
<content></content>
<content>Stage I & II GFR >=60 Normal to Mildly Decreased</content>
<content>Stage III GFR 30- 59 Moderately Decreased</content>
<content>Stage IV GFR 15-29 Severely Decreased</content>
<content>Stage V GFR <15 Very Little GFR Left</content>
<content>ESRD GFR <15 on SLAB OFF M[employer] TENDER</content>
<content></content> Carbon Dioxide Level 27 meq/L 21-32 Normal (applies to non-num jerrod results) [facility]) Potassium Serum 4.7 meq/L 3.5-5.1 Normal (applies to non-numeric results) [facility] ([facility]) Chloride Level 106 meq/L 98-107 Normal (applies to non-numeric r esults) [facility] ([facility]) Calcium Level 7.6 mg/dL 8.8-10.2 Below low normal [facility] ([facility]) Anion Gap 8 meq/L 8-16 Normal (applies to non-numeric resul ts) [facility] ([facility]) Alt/SGPT 18 U/L 12-78 Normal (applies to non-numeric resul ts) [facility] ([facility]) Ast/Sgot 13 U/L 7-37 Normal (applies to non-numeric resul ts) [facility] ([facility]) Bilirubin,Total 0.4 mg/dL 0.2-1.0 Normal (applies to non-numeric results) [facility] ([facility]) Total Protein 5.6 GM/DL 6.4-8.2 Below low normal [facility] ([facility]) Alkaline Phosphatase 71 U/L 45-117 Normal (applies to non-num jerrod results) [facility] ([facility]) Albumin 2.7 GM/DL 3.2-5.2 Below low normal [facility] ([facility]) Albumin/Globulin Ratio 0.9 Normal (applies to non-n umeric results) [facility] ID Date Data Source [id number] 09/29/2020 09:18:03 AM [facility] Name Value Range Interpretation Code Description Data Devi rce(s) Supporting Document(s) History and Physical [facility] WSUNCj7gZeZVNaIm34/XZJoqWIJqy6IkYKopDCv9IAgdIACnP2UcAJK4yC3xFCT2CIlFChIkQaJuRhF9 lbm ZwRxpDDjRcPSTxSgpEQwUpYUtiCcvjlBYiAG9ZtQX2KMUqT36yLJMuRNEhF1XvFHC6NQX+Ao8RRCEmjQ LxYP0KGbbD4J8dg2zP3GwO/fpHek1TKXZ6r+lFOBONmy3LxL9d2eYs+gKlF3oZlE594Nsv++f9O86bQK TG0lI+n3zWFKmEHDC2NZmhKZNInE7+I9pp8FhpqT/r n2BHJasFt/vSfP8jRW3p8qLyHM2RAsCU3OFuhc+/vcY1xoz02OuHWHllb9eVZfyUbpO6JPvRrmmE7ho7 rs6dMWrOkj/Eitpa6Fu8GFNCV9D38vxRtkMonZoz7q7UZQvFZEorS2ZCEMYopuSvm+ICG3FHR6PF8Lbr 63PMYL9ENhpc/EdT7LOoFxh2MsMCPmnguI0PrZscbw YzJTCX4d2bNCmQQyUT5q9ulXtzjyo5taIouCQummKRgrki3BXU80s19flJkpVcvnN90ajLnPP6sB4qGJ Q9QoVT8lWKR6jWF4XJLtypjOgyy+cnZmT1+N6n/+ZqzhQlPIxjkYNd12YSOFkVLBZr7+j4Y9Jx3LSDDd R6kMVEN3SwebpusP2ozaCGTgd3U9pv8XzWXJ88Krxk gAzQJ39c3Bf6K5KZrFS2zIJmR08l9ULKdP+I8AlKQq1N5OFkQK8ZZCo8+rpLIMKTWKMK0cCsL0xbDSm/ GcoAj4rZ7BgSAmjQBQIiU7NhVdA5ioCRcix67Xt3ahh7MRKgXG3Lh+GDhTGp5o6i20v6GXcMuu96kcmf MCU2K0xaOAnBCfqhPnz6E3w44yP2vA7zpf2ST2biAu 6AcVJCi/YjEV4tQ4KPgJ5By4Z6QsmWH048bww4MrvYn1+Pardo/EPXTb5h5LrBheNfbo0jqGixDTyrxojZa 1zIjYqT5m+AyFQowXb6SnvWE7meQo3jPq6fmzAAM4gmL1/fXwo/a0zLbwQj7TqSPpPnbIUUTfnJNKFgQ N8SnolzjvsC0hBjYHLBsuqktal5j/hRbQITSGiTxCc 45TjJt88QnqPSCCZTp7BwXWXA1cekT8HggNnb+pxsUNDjtNXqL2JStHTYkQVIuuauOwEhOpgqnXPiphr 0o4T62J+s6n4X0Wh2U+f5B8n+LPnf3Dde/opdb6ZvqPlVJLXGWUuBo6b6zR+xVW5dO7Gd8+zsVLL2pR0 U63oVlFntq2s98PU6GRLQF+BZepmkrEGTyZWGy6jBp ecmqIDGTdEjq/aKTuP2mc8tl9eT6qxChylovcvwLUGcT3UBHJ4GCnrW1cxHGCNyLsSBKcbudVRTwi0Mf f95HsuGx6mvmnPXxqA/MQnK3pCFAWXtN2vdGJLsS89f57s2s5n+oLxp8+CcjVpJb98quezWdHUOc/eep 6w9cdqViktFworl6XrvcoerNxr2D+M0xoEn6By3mKk IRMA/wGhqsfm8UaWpHhpspYxhC+qDLyPLtrfU2LlUoL0XimMRVyVHvpj8Srbg58DTMUV0Y+jtDm3bHpBgd [file] [id number]= ID Date Data Source [id number] 09/28/2020 11:48:44 AM [facility] Name Value Range Interpretation Code Description Data Devi rce(s) Supporting Document(s) Glucose [Mass/volume] in Capillary blood by Glucometer 132 mg/dL 70- 140 [facility] ID Date Data Source [id number] 09/28/2020 09:34:20 AM EST [facility] Name Value Range Interpretation Code Description Data Devi rce(s) Supporting Document(s) [facility] WKRCBl8lMiTXOtGo42/TOWnxOZNoc1EeHTfiWDo0ZMjqFDVtW1VuMEG7uW8hRZK0QEnETiOlGzIgZzKe [facility] [file] [id number]== ID Date Data Source [id number] 09/28/2020 09:25:06 AM [facility] Name Value Range Interpretation Code Description Data Devi rce(s) Supporting Document(s) Glucose [Mass/volume] in Capillary blood by Glucometer 86 mg/dL 70- 140 [facility] ID Date Data Source [id number] 09/28/2020 07:48:16 AM [facility] Name Value Range Interpretation Code Description Data Devi rce(s) Supporting Document(s) [facility] ZLCLKn6sDqQZTlFve2TtAyDhABAeTB5socl9N0S6dZOwW6EmqXVnp9gnU4KgH8RnMCVqGIHIUJ2JmSQb jb2 [file] house coordinator+W+2fv8cIRtBoNHnBrSf7lwuzzFYCRkV9DjcjKq2 [file] and emulsifiers supervisor/5HKzc+HxTCsBn1vkBzlQH5jTe8I+tPpgp5DTadqT [file] W00tfF6LvutIlO+95yTAkzHbBFPgQpkwIl4bbaNvYMxJF9kI+[place]+cEXxqFK7FWGGgVvMXsK [file] MCBSCgo+WlpssEXurKqrEEYKYdN9LXSOTMCMK7H= ID Date Data Source [id number] 09/28/2020 06:13:[address] [facility] Name Value Range Interpretation Code Description Data Devi rce(s) Supporting Document(s) Leukocytes [#/volume] in Blood by Automated count 3.7 10*3/uL 4-10 L [facility] Erythrocytes [#/volume] in Blood by Automated count 2.71 10*6/uL 4.6- 6.1 L [facility] Hemoglobin [Mass/volume] in Blood 8.5 g/dL 13.5-18 L [facility] Hematocrit [Volume Fraction] of Blood by Automated count 25.4 % 4 1-53 L [facility] Erythrocyte mean corpuscular volume [Entitic volume] by Auto mated count 93.9 fL 80-96 [facility] Erythrocyte mean corpuscular hemoglobin [Entitic mass] by Automated count 31.2 pg 27-33 [facility] Erythrocyte mean corpuscular hemoglobin concentration [Mass/volume] by Automated count 33.2 g/dL 32.0-36.0 [facility] [Ratio] by Automated count 15.6 % 11.5-14.5 H [facility] Platelets [#/volume] in Blood by Automated count 126 10*3/uL 150-400 L [facility] ID Date Data Source [id number] 09/28/2020 06:25:11 AM [facility] Name Value Range Interpretation Code Description Data Devi rce(s) Supporting Document(s) Bicarbonate [Moles/volume] in Serum 23 mmol/L 22-29 [facility] Chloride [Moles/volume] in Serum or Plasma 103 mmol/L 98-107 [facility] Creatinine [Mass/volume] in Serum or Plasma 3.02 mg/dL 0.70-1.20 H [facility] Glucose [Mass/volume] in Serum or Plasma 96 mg/dL 70-140 [facility] Potassium [Moles/volume] in Serum or Plasma 4.5 mmol/L 3.4-5.1 [facility] Sodium [Moles/volume] in Serum or Plasma 133 mmol/L 136-145 L [facility] Urea nitrogen [Mass/volume] in Serum or Plasma 45 mg/dL 8-23 H [facility] Anion gap 3 in Serum or Plasma 7 mmol/L 8-15 L [facility] Osmolality of Serum or Plasma by calculation 287 mosm/kg 275-300 [facility] Creatinine/Urea nitrogen [Mass Ratio] in Serum or Plasma 15 [facility] Calcium [Mass/volume] in Serum or Plasma 7.6 mg/dL 8.8-10.2 L [facility] Glomerular filtration rate/1.73 sq M pre dicted among non-blacks [Volume Rate/Area] in Serum or Plasma by Creatinine-based formula (MDRD) >6 0 [facility] Glomerular filtration rate/1.73 sq M pre dicted among blacks [Volume Rate/Area] in Serum or Plasma by Creatinine-based formula (MDRD) >60 [facility] ID Date Data Source [id number] 09/28/2020 06:25:11 AM [facility] Name Value Range Interpretation Code Description Data Devi rce(s) Supporting Document(s) Magnesium [Mass/volume] in Serum or Plasma 1.5 mg/dL 1.6-2.4 L [facility] ID Date Data Source [id number] 09/28/2020 06:25:11 AM [facility] Name Value Range Interpretation Code Description Data Devi rce(s) Supporting Document(s) Phosphate [Mass/volume] in Serum or Plasma 4.3 mg/dL 2.5-4.5 [facility] ID Date Data Source [id number] 09/27/2020 11:02:43 PM [facility] XR CHEST FRONTAL ONLY [id number] RESULTI nterpreted by:SOLE JamesROCEDURE INFORMATION: Exam: XR Chest, 1 View Exam date and time: 09/27/2020 10:46 PM Age: 89 years old Clinical indication: Atrioventricular block, complete; Other: Chest pain, evaluate for pacemaker lead placement TECHNIQUE: Imaging protocol: XR of the chest Views: 1 view. COMPARISON: CR XR CHEST FRONTAL ONLY [id number] PORTABLE 09/26/2020 2:47 PM FINDINGS: Tubes, catheters [...] rce(s) Supporting Document(s) ID Date Data Source [id number] 09/27/2020 09:56:23 PM [facility] Value Range Interpretation Code Description Data Devi rce(s) Supporting Document(s) Glucose [Mass/volume] in Capillary blood by Glucometer 141 mg/dL 70- 140 [facility] ID Date Data Source [id number] 09/27/2020 09:25:35 PM [facility] Value Range Interpretation Code Description Data Devi rce(s) Supporting Document(s) Troponin T.cardiac [Mass/volume] in Serum or Plasma 0.07 ng/mL <0.01 [facility] ID Date Data Source [id number] 09/27/2020 05:08:54 PM [facility] Value Range Interpretation Code Description Data Devi rce(s) Supporting Document(s) Glucose [Mass/volume] in Capillary blood by Glucometer 137 mg/dL 70- 140 [facility] ID Date Data Source [id number] 09/27/2020 12:17:37 PM [facility] Value Range Interpretation Code Description Data Devi rce(s) Supporting Document(s) Glucose [Mass/volume] in Capillary blood by Glucometer 164 mg/dL 70- 140 [facility] ID Date Data Source [id number] 09/27/2020 08:53:46 AM [facility] Value Range Interpretation Code Description Data Devi rce(s) Supporting Document(s) Glucose [Mass/volume] in Capillary blood by Glucometer 86 mg/dL 70- 140 [facility] ID Date Data Source [id number] 09/27/2020 08:29:23 AM [facility] Value Range Interpretation Code Description Data Devi rce(s) Supporting Document(s) [facility] JMUICw1sZqPCFoJyl4VhEiHuDPHmXU5qufm5V7Y9jLJxC6LraQTzm9jqQ1NaJ4JvKYArILOZGU7EtDPt jb2 [file] 7+K2ueYm5etA2WbeduxifQcy8jmFNsA/Hzzu+pFipAhiz2z7nhpkwsC9EtiiZDzKi/[place]+U6vE77H57h2 +t2ZT+dT8WqNR6PsE7bgUO+/d2c67IfUriQ7z0lL9vQ4dB/f7Md1abiFOoKbek00o4N+yWrt5FQ62OHJ mYUueLvP0+8iQxA/s/D2scmMVFBml44h16uvG8k0Aa S9LX1A67kzXshJ5wFHG0ni5Dfnc0V0RclsX8RM9/5GmTxe+c3h4PlQn+mNAkE7u9uh8cr0ApjPT8v50m ObN5izjtEoX0wbC68s1j0RQU441sg6i0kU0A1AqgxkklJFs1BN/MvjTTLyb+9bae9axTPbix/pzRp5+l 1bvSs2XdAsuf98ujh0o6H43Of50ZYhsxbb6XiA3Tg3 GSQpCY7p1q55vy6lKE1+72iKIAXXc9IRhy111dO+EzToq1E4CvL+5/u0Oz8f+eLnI1/0gBVTgizebif3 hN/F8ZaML/A2LXK74KdD17wlNKTWjiPeG05L24gDbTMbtXyYb8rDFRyVWI2AM7+LqAvrwkSXPYRNYVOY COMPOUNDING SCALER+3d67tM1ZnCAtOPfTnZv0lX7bR2si2ua+942EdW [file] E4sfDg3qHwXeFAZQO5Pwv4TpYMDnTFWPXn4+SxB0NIX5uAYuYgz1DOR5TfueTLOLTr== ID Date Data Source [id number] 09/27/2020 05:47:17 AM [facility] Name Value Range Interpretation Code Description Data Devi e(s) Supporting Document(s) Leukocytes [#/volume] in Blood by Automated count 4.3 10*3/uL 4-10 [facility] Erythrocytes [#/volume] in Blood by Automated count 2.84 10*6/uL 4.6- 6.1 L [facility] Hemoglobin [Mass/volume] in Blood 9.0 g/dL 13.5-18 L [facility] Hematocrit [Volume Fraction] of Blood by Automated count 27.0 % 4 1-53 L [facility] Erythrocyte mean corpuscular volume [Entitic volume] by Auto mated count 94.9 fL 80-96 [facility] Erythrocyte mean corpuscular hemoglobin [Entitic mass] by Automated count 31.8 pg 27-33 [facility] Erythrocyte mean corpuscular hemoglobin concentration [Mass/volume] by Automated count 33.5 g/dL 32.0-36.0 [facility] [Ratio] by Automated count 15.9 % 11.5-14.5 H [facility] Platelets [#/volume] in Blood by Automated count 130 10*3/uL 150-400 L [facility] ID Date Data Source [id number] 09/27/2020 06:06:23 AM [facility] Name Value Range Interpretation Code Description Data Devi rce(s) Supporting Document(s) Bicarbonate [Moles/volume] in Serum 22 mmol/L 22-29 [facility] Chloride [Moles/volume] in Serum or Plasma 106 mmol/L 98-107 [facility] Creatinine [Mass/volume] in Serum or Plasma 3.01 mg/dL 0.70-1.20 H [facility] Glucose [Mass/volume] in Serum or Plasma 73 mg/dL 70-140 [facility] Potassium [Moles/volume] in Serum or Plasma 5.2 mmol/L 3.4-5.1 H [facility] Sodium [Moles/volume] in Serum or Plasma 136 mmol/L 136-145 [facility] Urea nitrogen [Mass/volume] in Serum or Plasma 41 mg/dL 8-23 H [facility] Anion gap 3 in Serum or Plasma 9 mmol/L 8-15 [facility] Osmolality of Serum or Plasma by calculation 291 mosm/kg 275-300 [facility] Creatinine/Urea nitrogen [Mass Ratio] in Serum or Plasma 14 [facility] Calcium [Mass/volume] in Serum or Plasma 7.8 mg/dL 8.8-10.2 L [facility] Glomerular filtration rate/1.73 sq M pre dicted among non-blacks [Volume Rate/Area] in Serum or Plasma by Creatinine-based formula (MDRD) >6 0 [facility] Glomerular filtration rate/1.73 sq M pre dicted among blacks [Volume Rate/Area] in Serum or Plasma by Creatinine-based formula (MDRD) >60 [facility] ID Date Data Source [id number] 09/27/2020 06:06:23 AM [facility] Name Value Range Interpretation Code Description Data Devi rce(s) Supporting Document(s) Magnesium [Mass/volume] in Serum or Plasma 1.5 mg/dL 1.6-2.4 [facility] ID Date Data Source [id number] 09/27/2020 06:06:23 AM [facility] Name Value Range Interpretation Code Description Data Devi rce(s) Supporting Document(s) Phosphate [Mass/volume] in Serum or Plasma 4.3 mg/dL 2.5-4.5 [facility] ID Date Data Source [id number] 09/26/2020 10:58:19 PM [facility] Name Value Range Interpretation Code Description Data Devi rce(s) Supporting Document(s) Magnesium [Mass/volume] in Serum or Plasma 1.5 mg/dL 1.6-2.4 [facility] ID Date Data Source [id number] 09/26/2020 10:58:19 PM [facility] Name Value Range Interpretation Code Description Data Devi rce(s) Supporting Document(s) Bicarbonate [Moles/volume] in Serum 22 mmol/L 22-29 [facility] Chloride [Moles/volume] in Serum or Plasma 107 mmol/L 98-107 [facility] Creatinine [Mass/volume] in Serum or Plasma 3.11 mg/dL 0.70-1.20 H [facility] Glucose [Mass/volume] in Serum or Plasma 150 mg/dL 70-140 H [facility] Potassium [Moles/volume] in Serum or Plasma 5.8 mmol/L 3.4-5.1 [facility] Sodium [Moles/volume] in Serum or Plasma 138 mmol/L 136-145 [facility] Urea nitrogen [Mass/volume] in Serum or Plasma 42 mg/dL 8-23 H [facility] Anion gap 3 in Serum or Plasma 8 mmol/L 8-15 [facility] Osmolality of Serum or Plasma by calculation 299 mosm/kg 275-300 [facility] Creatinine/Urea nitrogen [Mass Ratio] in Serum or Plasma 14 [facility] Calcium [Mass/volume] in Serum or Plasma 7.8 mg/dL 8.8-10.2 L [facility] Glomerular filtration rate/1.73 sq M pre dicted among non-blacks [Volume Rate/Area] in Serum or Plasma by Creatinine-based formula (MDRD) >6 0 [facility] Glomerular filtration rate/1.73 sq M pre dicted among blacks [Volume Rate/Area] in Serum or Plasma by Creatinine-based formula (MDRD) >60 [facility] ID Date Data Source [id number] 09/26/2020 09:57:40 PM [facility] Name Value Range Interpretation Code Description Data Devi rce(s) Supporting Document(s) Bicarbonate [Moles/volume] in Serum 22 mmol/L 22-29 [facility] Chloride [Moles/volume] in Serum or Plasma 107 mmol/L 98-107 [facility] Creatinine [Mass/volume] in Serum or Plasma 3.18 mg/dL 0.70-1.20 H [facility] Glucose [Mass/volume] in Serum or Plasma 159 mg/dL 70-140 H [facility] Potassium [Moles/volume] in Serum or Plasma 6.1 mmol/L 3.4-5.1 [facility] HemolyzedResults called to and read back by KEYONNA OTOOLE RN ON 8F AT [phone] BY [phone] Sodium [Moles/volume] in Serum or Plasma 137 mmol/L 136-145 [facility] Urea nitrogen [Mass/volume] in Serum or Plasma 41 mg/dL 8-23 H [facility] Anion gap 3 in Serum or Plasma 7 mmol/L 8-15 L [facility] Osmolality of Serum or Plasma by calculation 297 mosm/kg 275-300 [facility] Creatinine/Urea nitrogen [Mass Ratio] in Serum or Plasma 13 [facility] Calcium [Mass/volume] in Serum or Plasma 7.9 mg/dL 8.8-10.2 L [facility] Glomerular filtration rate/1.73 sq M pre dicted among non-blacks [Volume Rate/Area] in Serum or Plasma by Creatinine-based formula (MDRD) >6 0 [facility] Glomerular filtration rate/1.73 sq M pre dicted among blacks [Volume Rate/Area] in Serum or Plasma by Creatinine-based formula (MDRD) >60 [facility] ID Date Data Source [id number] 09/26/2020 09:57:40 PM [facility] Value Range Interpretation Code Description Data Devi rce(s) Supporting Document(s) Magnesium [Mass/volume] in Serum or Plasma 1.6 mg/dL 1.6-2.4 [facility] ID Date Data Source [id number] 09/26/2020 09:57:40 PM [facility] Value Range Interpretation Code Description Data Devi rce(s) Supporting Document(s) Phosphate [Mass/volume] in Serum or Plasma 4.4 mg/dL 2.5-4.5 [facility] ID Date Data Source [id number] 09/26/2020 08:42:10 PM [facility] Value Range Interpretation Code Description Data Devi rce(s) Supporting Document(s) Glucose [Mass/volume] in Capillary blood by Glucometer 159 mg/dL 70- 140 H [facility] ID Date Data Source [id number] 09/26/2020 05:33:15 PM [facility] Name Value Range Interpretation Code Description Data Devi rce(s) Supporting Document(s) Glucose [Mass/volume] in Capillary blood by Glucometer 86 mg/dL 70- 140 [facility] ID Date Data Source [id number] 09/26/2020 03:33:55 PM [facility] XR CHEST FRONTAL ONLY [id number] RESULTI nterpreted by:Guillermina Rose MDINDICATION: 89-year-old male [...] rce(s) Supporting Document(s) ID Date Data Source [id number] 09/26/2020 06:08:55 AM [facility] Name Value Range Interpretation Code Description Data Devi rce(s) Supporting Document(s) Glucose [Mass/volume] in Capillary blood by Glucometer 84 mg/dL 70- 140 [facility] ID Date Data Source [id number] 09/26/2020 03:57:14 AM [facility] Name Value Range Interpretation Code Description Data Devi rce(s) Supporting Document(s) Magnesium [Mass/volume] in Serum or Plasma 1.6 mg/dL 1.6-2.4 [facility] ID Date Data Source [id number] 09/26/2020 03:57:14 AM [facility] Value Range Interpretation Code Description Data Devi rce(s) Supporting Document(s) Phosphate [Mass/volume] in Serum or Plasma 3.5 mg/dL 2.5-4.5 [facility] ID Date Data Source [id number] 09/26/2020 03:57:14 AM [facility] Value Range Interpretation Code Description Data Devi rce(s) Supporting Document(s) Bicarbonate [Moles/volume] in Serum 21 mmol/L 22-29 L [facility] Chloride [Moles/volume] in Serum or Plasma 107 mmol/L 98-107 [facility] Creatinine [Mass/volume] in Serum or Plasma 3.16 mg/dL 0.70-1.20 H [facility] Glucose [Mass/volume] in Serum or Plasma 97 mg/dL 70-140 [facility] Potassium [Moles/volume] in Serum or Plasma 5.0 mmol/L 3.4-5.1 [facility] Sodium [Moles/volume] in Serum or Plasma 135 mmol/L 136-145 L [facility] Urea nitrogen [Mass/volume] in Serum or Plasma 39 mg/dL 8-23 H [facility] Anion gap 3 in Serum or Plasma 7 mmol/L 8-15 L [facility] Osmolality of Serum or Plasma by calculation 289 mosm/kg 275-300 [facility] Creatinine/Urea nitrogen [Mass Ratio] in Serum or Plasma 12 [facility] Calcium [Mass/volume] in Serum or Plasma 8.0 mg/dL 8.8-10.2 L [facility] Glomerular filtration rate/1.73 sq M pre dicted among non-blacks [Volume Rate/Area] in Serum or Plasma by Creatinine-based formula (MDRD) >6 0 [facility] Glomerular filtration rate/1.73 sq M pre dicted among blacks [Volume Rate/Area] in Serum or Plasma by Creatinine-based formula (MDRD) >60 [facility] ID Date Data Source [id number] 09/26/2020 04:11:43 AM [facility] Value Range Interpretation Code Description Data Devi rce(s) Supporting Document(s) Leukocytes [#/volume] in Blood by Automated count 6.0 10*3/uL 4-10 [facility] Erythrocytes [#/volume] in Blood by Automated count 3.05 10*6/uL 4.6- 6.1 L [facility] Hemoglobin [Mass/volume] in Blood 9.6 g/dL 13.5-18 L [facility] Hematocrit [Volume Fraction] of Blood by Automated count 29.1 % 4 1-53 L [facility] Erythrocyte mean corpuscular volume [Entitic volume] by Auto mated count 95.3 fL 80-96 [facility] Erythrocyte mean corpuscular hemoglobin [Entitic mass] by Automated count 31.6 pg 27-33 [facility] Erythrocyte mean corpuscular hemoglobin concentration [Mass/volume] by Automated count 33.2 g/dL 32.0-[facility] [Ratio] by Automated count 16.4 % 11.5-14.5 H [facility] Platelets [#/volume] in Blood by Automated count 124 10*3/uL 150-400 [facility] Confirmed ID Date Data Source [id number] 09/25/2020 10:19:17 PM [facility] Value Range Interpretation Code Description Data Devi rce(s) Supporting Document(s) Glucose [Mass/volume] in Capillary blood by Glucometer 89 mg/dL 70- 140 [facility] ID Date Data Source [id number] 09/25/2020 06:18:13 PM [facility] Value Range Interpretation Code Description Data Devi rce(s) Supporting Document(s) Glucose [Mass/volume] in Capillary blood by Glucometer 136 mg/dL 70- 140 [facility] ID Date Data Source [id number] 09/25/2020 06:18:13 PM [facility] Value Range Interpretation Code Description Data Devi rce(s) Supporting Document(s) Glucose [Mass/volume] in Capillary blood by Glucometer 53 mg/dL 70- 140 [facility] ID Date Data Source [id number] 09/25/2020 05:13:21 PM [facility] Value Range Interpretation Code Description Data Devi rce(s) Supporting Document(s) Glucose [Mass/volume] in Capillary blood by Glucometer 50 mg/dL 70- 140 [facility] ID Date Data Source [id number] 09/25/2020 05:13:21 PM [facility] Name Value Range Interpretation Code Description Data Devi rce(s) Supporting Document(s) Glucose [Mass/volume] in Capillary blood by Glucometer 58 mg/dL 70- 140 [facility] ID Date Data Source [id number] 09/25/2020 04:05:31 PM [facility] Value Range Interpretation Code Description Data Devi rce(s) Supporting Document(s) Troponin T.cardiac [Mass/volume] in Serum or Plasma 0.09 ng/mL <0.01 [facility] ID Date Data Source [id number] 09/25/2020 12:32:25 PM [facility] Value Range Interpretation Code Description Data Devi rce(s) Supporting Document(s) Glucose [Mass/volume] in Capillary blood by Glucometer 161 mg/dL 70- 140 [facility] ID Date Data Source [id number] 09/25/2020 11:43:20 AM [facility] Value Range Interpretation Code Description Data Devi rce(s) Supporting Document(s) [facility]ital RKDDSf5dOmVYWfInl7BuWoZbHPFhAR0werp7M6O4oKAtX0MhqESjb8pqU1FtG9ZwCBNrTDEGIT6JgYYz jb2 [file] fNdK58x9/M9I18Svz2FZWQ4+M6p3dbRROdwx/LvoVz4tzhlEnGJau5hPk/Jose Ramon+Ty6PKm80Vp3rC7I5Sx [file] Nw7HhcRjymdQwIs7/3sBmngILH54MtZN/олег/1IZ8HNw4Jv1a3aQ8vtN+dpRFbi5sL16Km0Arkl4G1K8 4g097tTXTtpfxKS20lln7rleu49olNWfi6E2f6qUVo q339/P9VPf9/JmQMMyu38wm239xCgwYzylNf/kA5A/UZqGfi/qlrqjibw29U1vP675ytr0z9hUUwe5hH IkCWq5njW2XuofB1qopPBb8DOV+xthu08g0h0xy6bTT37iQ29PfCkR+4wPNi93SsRxZzG4lXivdVxuOh zMG84j3/5lxxk4aQCygEwXK8oiG5qb31K8P39mwEFe PHV/ea27p+5Mrb9T7r4Dvbyx9pqND2vv+9v7ws1b2x2o6gTv06yiAorSbhv+lqnlt04h/Q715l1lAs6E U+B2bf+mMbzSS9P23chd0ev3iQH36v19CDn1kymLX+2i7fbS5C+ny/ni6WqF45zwh2Jin5FVU7bvNR8I 6vtp/M+EhEHFk6ic9jmTq+EbTM+Oqq8m9/vqqe05/r WtDg202Jfu/7+f+cuf6fpC//R9rP/yPtF/Tn/5H28/6FZ1fjjH75KIx/ZiAPBKz40C1l/bej/390mn8I 5BjXN1nLj845iccm6fuPbmULykZKAQ/p8vkZX+cd09digNTSBL/a4wcAS882+OHcOO8XcCS+2tcN+ga9 QW/Q+6nPjK/2s/b21zY1H5hpbycvaXH3W2oeHHV9QE vH4P8q13O0i8u7ZcTR0fLvPN4BwxNf8Oo4Xs7vCdk2GsyEXbDMapuzA3ElqFx/55wmSio14HIxi2mskY ecwx59Kg9Tq5P71Q9s02ogsjyoV/yo56iByQ+fhOZjY1O6as3r9IEYoTe3yUcgfrCmbe75wV84ti/cX/ SE193c9+1l02noF4ocqW50JlEt/B827vj8e+ap22yv Oz9wdv01yP8aI+fPgo6820et+tw/46sqR+SUP+Jaeq5q4rxjFKn1eH82jK64pg4hTwNWOxoliB7gZsE1 rD7Ml4vk2t5hyey2+jczNqkveJZ4W3tRgdre4YVNiKC+QW/QG/R+8GxmY98/c+eGmdefpZ/treuAPqAf 0A/oE/o8+hlfPdfQC/QPgHPfd54q/qrqP+ze3iOLf7 Ky2b2zKcqXbikmD+he4t9DwcfUZ7BFwhs71kOQf/4sEft3fN+mx3/m/FX5xpy/yu6Gs7ndKlY5eilre6 4k4Qx4VGn4n0CrIp8GDx1So20pT2Hg/Lpw/YzDc/vLuYZeoVfo2+mnjvHKz//fue+dBiR61iVdJ1+h79 FK6KRspDTtV/QJ/fl/BUt98Og272yrSrBC7Z/nuSu+ wnG693rZ6870VlsgbhM1Z7/tgm1uym3bu+Kmoohu5ZTf2tj+Gpgh6rsKCGl84+jX/NW+hl6gF+gVeoW+ Mr0DJaHNs7U23trymee+W/NXdX2+ohkvx3cv44ZH95okxBbyAjjeM/ly928N+f5h28GvzCmxTYhBrfY/ 9sw2YltsqoYs1G/50uyerW4k+tne+B1M5ddHnKDzW6 Wi7O2rr6R27plOFls8j214h15WbEEb2Hu5E61w4RmzsEqIE3qrl2Enz+2VpZ/tvZbeoe+9r9m8orC8VV ggt220aRK4z6cdg9M3ad5SqmUkfKmrHfnOeNFdgIqrGIdFhm5+q9wS95P6j3AhrK/Qn/kNuxLlnPkrkz Poa7Hjz41W/LPJ+P07JtX7LhvyqX6W2uknG9xwAY9/ X6AFQmVwUWcW4YD0r43d9u9disTpq/ktdF898kgM74Aop84Viu+bnvUjw/hMOT6ZiE2yoI6nlS1x1ggD 69GW7WAZ+qBh/wrjz3ZPFoBjPnrFF12dbU6+5MCOQh2r2Z8P84ct/Ko5x0D1Kl9wyH2Ltjoq00ZqenB6 lXjaaW6cbqXxPv6v80G2+hqEnf052c4K46LG1RFD+q PufqPqQjz3AlrsIYdT/xp4A2RJjrbjTQ93xsSvafQPU6QC8+tn/df8rP+js90ltKz0Km50iMvUEwt8Zi 29qHdN7nL+uK+hD+gD+fO5bL0hP+k64aMjZe/G+qB1+HOHP2P+yrA+aFgftA5/fgmZvphskf14+HPH++ 90cd5nq+Y0zmovobqa6W4H/TvX9lR6X+0NtDfQXqwP Ivc2DBko2y9G8aR34AA+W5oaaG3ahitzffcloB18at5IdxWu5tsx/7Wt+GrGCTbO+r6NE2/YgD8P+POA Pw/484A/D/jzgD8P+DPiKxvovwPtHSeetIH/RwP/q1nRHaWFxJsCkQ/E/6NE/4X2BGXqSr2Pk0rUG/sa eoPeoHfoHfoOfYc+yGs8SJvxA19f39L+5G/4dfI3/L qgF+gFeoVeoW/QN+gNeoPeoXfoO/Qd+sh07C7HI/p1/XrFqBUZUa5tH0/o3p3XLnQL0WD0egaHi/hKln 8562o90u0t7La42/nMlu0axrO07zQo+KqehfbKeb++4ckmd802J6/8q6U//clYa3ie6MU1bA1eK+gb9A 69l42yf+gd+l89lc5sY+rC9AE51YgoxqXWM002wsWk UgRmI3nxeZ0g5ZLrqcFMU794rdAhXgWpD9jjpJ1w0LXqozRQF279ictw52TaF+v7bic/x+2s/0yQ0Fr4 Mw70A2akwH648juAcVJ1ysuh+VeO/CtHfOWIrxzxlSO+csRXzjxexFfuaK+crD17ZauvoB+meS32Qz7u 4/063q/j/Tpd4r009Hydqx7sW/kb6veugI8nroO35f q1186cY92taUP2HC/QK/SKctDeiq+W/fLuFoBsW7owtF9z7LEtikCoCXh3//V+/m99A9qe2ut8dvPjWk RuZ4gbyF6l9XDmycJTh2J/5ci/8kB7A+5QhZwQYrWGPsUetU921j7k37dF+SvH/JVj/soxf+LDe2ZELg kgczumT174Yy3o84E7W4t53O6P1wF+8nG+F3zFV+v/ zsD/I8xf+RjQJ/SINzB/5Ql/muAv09v7YhthkA+fwRr0NutlgT+myJk6Ac0e1m7e+JprH7zy+L9niB64 JvTn+6hfp//264JeoBfoFXqF/tpvbJezxktaqlptyswxhuon4bvF17Z//bdj/qpj/qpfA/qE/nzvdznj c0d+e0f+NUc1B823Ar/tGU122Xi0Oc4mDWf3fC+gvY O5FnOb8E/oB/SJ8vF+kd/ekd/eMX/Vkd/eEk3L70ikL/IGjwIp9P4v7vMSlwn651kps0cnZ/cHyhkof0 Cz9BY2Uw6UjnzRdbjoyS5UrftdawziIk609b1m+ee+1yb5xmsk16/73o1K0yj3QbL8il6yyG8I+pzvhb 7iq/XcFV/ToOXetZ9CtVwyfjgKU6oEBn3B8B+R394R Y2PYUk2rTVg74LKhfjJWAyQDT2aAJD21M/+PuqP/+wzd4zRaueCG0GV6ydinNsC+6n7yn/uKr+q3Jx+p +1tf3KijtoH6pcHV+Skc8N6VH02L8k64Ki9mx7U5y2980K/3fvKBez/6p3725U21w56ZbrN0jrAu+oAe 3tGoy82tTioTtv2pm4q76Q0X0UX23lv8p2wx56Ptd8 EkmRYlbxoSnozva160ntE+0jua8JN4Nm+7L4drkqrypjEvvzCBydP8RkF5nP3Y5F7v47Q8x4Op1XtHF7 aT8vr4ys7Luza6mVyLx/YOvN+B95tn/ajnWT/qedaPOvLbO/LbO/Gbt5RnX/684qsqH/5Q6NTKxBXIV2 LUEn9C9hD8J/030X+xPtixPhjIb4/r+MQqgg2C7r2G bw/slxhy5vK01QLXdyf948A8HP2H7heFgTCCQS/QD+oU7Wp09ki70nG3FSHVT/QKvULfoG/QG/Ror6C9 nD8N8URwnwoNF9B1DlP+HDW5ZtQ4g1ao75RzRsOg/SK/PRTvF/VJuks4qLggjMQw0aA1VVX+KjB/FZi/ SiqkPoxqSdFQvztwKR21ZEqdD77/5vlqt5ew+aOd8S oa3i/mr6Kd+Y3rGzw93AFWqaK91A60Up2cv/iqsKrGBK4tMZ4ZtC+LrtV4hq16Dod/GBVfybp+6dcx/D Cxq0VJz8g54hn0RaEa22QSsyH6N34/wUi1qpcNiBx0gJToH998Pr0hG762eK3kn55ZYiZ/wku8qrczIG jw2082reS710ht66/yZz5/6A9w6689cVm46lfw/Zj5 2g0bCSDmrqe1l4ilF3a+OnNrP403wLe3jBgkL7/k0h1FyIoyS5l/Du79eSld6IkUc45bh7717blgc9/u 6bh/2dSvtstR95/tveOr+8F8eJ2560Kdo/41B6u72xDboyxVt9ql2B7g4FQ8F06l9htd9wuICO0oj8y3 hqnQ7yy+ovtdd2ghjS/P/Ro91/Q1xy5CLr5rON/pOr Co2hhW87YqclcUcMlx5ktuElJV0+M/H00eqtIcqspiV2aJ+Oxq3J7j9XJ9K+tl0c/8RmD+KhBfBfYPRu 0fnM+t/Ctb17d+5TwHZ2b3a/8rk2o05uG/+RXc7ak7pe3qxQf50zs8mxo25gU3+r1PP728Ty68mbH+5T +g0883ggo85qlER7+6geM2tY7gB+ou4I04N/UfJx84 Kr+3kc1jXysYj52Ky/UCDuI3Ov1QjoQoKMqh8wkM3n0N7eogq4jsha0C1gEITHz/MlZ+ie0Z8x428tUS yX+Old++i7BN4WW+b3W9txgh8mYgT85VAikyN4lH/uRPjpXfvq+vv9T9dPKhh7Q/7R3Ibx/Ibx/Ibx9X QB/QD+vK9Wd6wZ6zecI6k4Y9eybo/Yx2RssfNStdH7 +K015Hur9kJ7/GELQX+e0D+e0D+u7Tzd3YFIOH2soI+Yny8+q50ZCLWruAhe17O2YVBz/Qk88/FO3Vk8 8/dQI0hw7cWsWCPRc8N5J44uN/v7Zwkso/0b4QgqlawMa7mR/6bTv5/KOd/ZoK2U6fJQ/329DehvfbTr 73WPnt+xp6P/Vf+e2r/iu/uoHx1knH/++jnXz+sfLb +3LscH861fLRji/Sn/s3mpi7pgg7usz7pdAl49dxW/n8Y+W3r2et/WAS57P3iv3R7w8k0g17g8/9V377 zh02x0EWGwmYC2zyB/tTxspvX/Y0vN+V376vz/8C2e523rEtja++x0RBb0x+e10b7j/3E9mAo1/X0M/2 Sj3yl6958wcKmJCj/+9w9F9H/6T1573zkwWutj0+Os arld++r8/43DE+9wa9QW/QO/QOfYe+Qx/QB/QD+gF9Qp/P/38g2nkv8kgxNrUy8eJKu7oci/mNuoa+Qd +gN+Katrin+Pzh9livNhzKnZb+UM5Z/j7k2v4LEGr8Ct4G47/3baI1m4D7h0Uv2G43acj1w+avfF0/33cD64 ZB49TY58WG01qN97tZ22sF95sZ83diTEgB3Xf2GAvr gqFtkC7BkB3F0T+NFOgVeoX+wG1W8I9A6S+TIB865+rHmr/a17i/g5s1B1755LA4QIJwW5fd0ZngC/Mb lM85kdW3TWq68fwGresxuARrc66Q33rmRe23o/2Gchzln/chzY0WaU1y6o2C36l7mrvgEU55Td66YE+V jM7JqL3c3p6U80duY44cqgrvEbi+jERjO5wtHElwuf nMFy0kNU+KvT7XuY9z0kbY37XX/PZE/Jose A/xpG28431nFL8C3vh9NVr1rvWxPajjHgW6k2p5C9UBK+Kj F/lWv+kq219fQV74LY6tIA+zMvpBN2hShfpe/GbiE4uLznC2k1j0L+VSL/KpF/lZi/bmcw78ODV+3r44 wPm7sVLoTwttYcK0d2j7M3YXM+KpF/lYb3a/Bn5Len ri9V7ldep/awSMWC52WD9vFK+oGhdWRdCyjHB7ofQcxNZ9GTxI0oxY+H07vokJ9/53Snad9v62gKDeh5 He1F/aHngFBmVdsUk4aPy0/dN86nr6ywM/03/iDHgkf6N/oBfUJ/6fVgd8qNNR6KleXF+e2J/PZEfnsi /jgQ2099anT8lJf/lX06t32Rg/7b0X87+m/H++14vx [file] JJakVA1weqXvKHEnFgahXg8jmDD8DPPySagEOd0Zb1MubxL3efFxFzBsJLk5KsFzNE8R ID Date Data Source [id number] 09/25/2020 11:40:[address] [facility] Name Value Range Interpretation Code Description Data Devi rce(s) Supporting Document(s) [facility] VNXDLt5vMrRBXeQmp6OeCxBtGAOnXW6wckd5L7P4tVFrL4AkhHHcs5cqN8HyY8XaRIQxPLCVXQ4DwJVw jb2 [file] DXyUIvKYCRSdFt9plNFCZI0FCNxqIDABNL4JyvXZY8tLVoRWWWOUrCwvuioeZitWA9PeLWKMiAAVDZDN BQWTbRETMP2O48K1EcNmCKpCvWHEtmWDspPpCUGFA+G4OJ9V1JoKvdHcWEPEJ+H9FT6Y1BpYlpIvVXxD nkPkL7vTvDigLWGdtGXLaSDSMrGSwfqiFXblkTvt64 I5TDBGeLBbLJVJEuQwf7fjRfDOuAQomCnxx4sPjBIOxDvp50vh73ca51tx08su30jc11od74qn15ta52 im56dy69da52gj10xa38ip94na64yc94ty39uv79ps90rn53pp00ip07hz10ju48rs25jw22mr44fw15 vc43rt52vTK5aot41uf93fo35bk05sg17hr08tq72g d57VkwvY+RNlIn+tYHYNqE5J0xfGaTxOcNNeGfHiyWRHExP84SDifwQtU6/sG3n9lph6tD/N1DokbUe3 wDWg1MNOdWGTWdsXWbobmGStBhsRFnWTiFFYoWyZIHXW6RBUTLAKWAxKDvFgSVbLoxC061f266b969l5 26s153m427d794s611d589l492j334i3E+O+s3Hf2b vqcBv6Sw33W/bzel1YbjNC4uGL3DyP+JHUFzbvxTvBM05vGoHWUTRrJEEsawjYtTdbwHbFU52yTfReKk XVedNDcdvRI8vuBK9GQX9kiA47hae9IDOTITDTFfrC7TXGv0LWM6iYPbvKgCMZ6vALjtAer0Ver3FuQ7 4M2RAWPIFRvUXFQzqPiHktr2xVBHDRhDMwbvEwVxdg 2WCFHrqy0RHVdydAaiTFCo/xD96dgG9S6Md1YMI+1RoxpXpMBHBhYmOVbjKKcvgMO7hkZA4GKY0ikS25 kyfx0sSC4AcI+KTqkCPcUrTIy0pUQoCKLnaeW80sjK7KvM9JLS/tMCkYYZOkpAzm2KQhBZofSGcyQPvj GOcvO81N38ludZ+F84TvKiAJA1a4cMjjOEbW69phdU 86f+XfHAxLQtIUBNPgMo5Rt7CfMLmvzkhYeLIqaELOOY6BguAZIDIBKHV2f7O4YU9KoPSjKaPPpPUabK wiTsSJkIOFMxxdj+IEST9nV/ksTgDnbYK6mxGxDS+eT4IpNncp7nY9bc0lws7eeXd6sCbuX61lh/7S9c iSGii1EM+eP0sE0cFbcMBG6Dm4z9HiWPjDOQWRu7V8 xaCMfZS3tYjf4/DyN5yAB/gImwqk9Qye0G/ipoxDVPZKti9CaGMmA3P6bd43b6nyCIJU5Nq1H07yxGaY q33o6eDNqaiA4PKu1fWK+2qvcTCtb/X7Lps6CbbS8/xqluON61RVU7WBA+QHoi4E3YFwY0DkvZY0Rtz5 SD+vJk0xPxwjYNqT02V90CtYr4EvSk9C7j8D1UF0JO 8F13K1L9t9gxhWHYoK7AcnQiQVOSscvYWXL9Bs56U1fHopsqQIe7oZqHj6shnFBkM5Zv2KPXg+N64LZ/ lPrk593EmgPsrmuvx9QB4clW1FGcShrKEXZ/dh9sAPwJTHV/r+r372+Y0JsyLP1Jr/iswlgr6di/32+f 9++/n5nt2cDySZ76W15rqrY1d5/PVv/ubtv3/39bf4 WCY4PZ/79mkbMbtXvjm0XoM0+fmQXj/57x++/qswGTDz93egkJ4mn52m/n6P5/Pf/+hv32i81rjmh/7w +ePbLz5+4d7ZI56+9qtvv/n1x0/ff/P5Nz/xv3t7e/v03a8+f/Rfq6eRIe4/+ubjrz/8/Qs5uGvG0+V+ mVguvKVYOcYpmdo6Y7+/ffr6N5+//sApR89m+es3+W R5kkaXe55+9vPvvvyHv/QClgwh0u8/ppV9U34++2jqfb9e9w/mvaktx7xvpq0/+bke1ixr9kgUo4508g PbN9/+7XgVE45+++f/2lC8bw0+9fbdt2/v2p99/YamMq19T5z//Nc/jzug1Tvb4vqlwy6+lx+//Obvvv dm9kzGrd++/ert89s/ehl3b9aQQ/v2u0+/+PDzd67+ wt+/PIe8m/7U28cv//0xiLboY9g+9k9ff/k93xidetFEL4/i9jG6mb+Dt+/+7n1e/MmHX/63D44G7v/G e5fa3/p9BavqRliax10//+2uq9yXww2x+9kcSg788dPQ05+v+BDrsK706W/98hd/9i2mqgc/ce11j09/ +/g3v0w48mmR862/w1+5hGrCrN5jW1/88mqL23z24K efvV/iy68/fPv3H9/25g1oO6+/lLcbipfuD59/Gqd47svaX/9t49m73c3/fPX9j6+ahRVeV/3yT3/8t9 //+Q+/+9e3/+N/vf369//+/99t//9k6e282g5//7t/fe3j4P//125/++DZ+quOn+BkQ3jN3rk jn5cMv/nzRFahDuy9dWk/9D35v+QjrvL6cF/wauPr7 7Pjg8/r6/uBIZppvUZ83+ls+kGea2Gjlpy53e3QFS3Hmu7o5/MIl68kf7ykJ0+tq9yvAcHyQqU+/+7ff yEK4XklYh4x/+KcP//Induction Furnace Operator+++/viLj9/+EDvzDdErB1cem99+xGz2zOBR40r/ecB/TZjiW03D6mUU7ekp w69/98f//Nu3P//2P3/3g6u/kwselTlx6vA/sItSez RK29rXf2Spdvn2/R//83d//n/+u53X6N76/2Rux28Dd0W7K3e/+v7tX//H+83//k9//QP6I1ycm83sq3 iwf/z803/8/C/s6bgE+Lsn/8S86HaKB4Zas7erro+I+ExX1zxqszDb/bhXHuyXP/h1s11eh/2fv/uP// ypBE0y5xXDz/r1r9nUsuku0/39/7/+/IAf0Lgh9Zvp /vsPOjh+gH752//xL7/9j9//9o8/+vub6eW//wX2tDKsD4/7ddhcy2ihz/SR26Cf/+ya6uuCLxHBOaXI 4fWBz7/7l//rj7//l/d7+XEg7PbUxR43Ywzv1Lc/4z/fx9W/fvE+Q371m//6nelSpVXf/pN8emc8/Rd8 rb9chf/9R14/LWDb99rtm7/9P3/3Nt7+2L8pD6xUV8 ccb9gG6hMKy7W+3jyXT7X70+0TWLwhr41hmzy9/kQ//3348svvfvXt+0e5uqM9ho1N1S4VU/WRBQplbm WbdBSwPV9YAJ6im5WjKdB2SSBnr8EcHYaeHNb0hMAcVOwhbiQki3QocociA5Rfz6LrApVrYWRfFtKdDk w3KRQxAwC4lUNnMvNtUTElO4KkBOGgCbR8JwUdLCQB VP4WTLWehuPeGtDjUHC+XlUvRF4tjiadMNSjn7AlEOoxDTpxWWHjI9E9fAmuOJEmS5DrwC66JICbL5Vt hpT7NJB5XFEyBdVgTOTzmNExQHQyPMZ+VsYqKR8lnbvdDJKkt6HfAYezRBY9vG4aPCmEPJNETJtRQTds VwC8h34ocpUTREYtMEMlPW3PclLakVgthzCnlSAdRQ O5BsViNIXvDpNpRNUuJSAFPGCpLRCyPDAwPNZdE3OvbKioWVeKLIHPDHaMEFrqQbVts7X3UJSjquIDI2 QEUcKPVHnoNr9FOrTrGqTiJWU9TAXdA8AbspTrbNJuUZTEXUwtCjlnHXZuxY9yrBgfP4GdBXQ4g6IiLP 0JB4YvLGKzXDSRHUE2i6XlHLFdugzpkwbvTxAdVAGh UZCtOXZvYQ7Udp9udOUpidNfVAJFJWvcOhzhCH7yjPexthefA4EhxHXzOKL+BsQrLG8ejd2+CjEgMCBv Opn8OGMxWRirAMUlTEKjCSAzG8koNAPiSdDiRVQoCwHbSB3Aa6JnnWJtIl7eziTzAfvOtYRfAucxDEWh REDaGLOaUmXMYQJlREBuABBwHIA9XPBrAHSvXWneML XyQOUkYFV9VTIzXFPlZL2bUbVbXGMsWwC8XkWxTYZkCXOimjNCWRTqHZE6PJNjGZDnJAJfSSOwBNurEL DgSEFhABLbVDH4JEE8KQNoGqItNDCzNNUhKCFwDGMqFLWvywWONEWhWWVtBBQ5QCAnXGHzCUZxKHmtYC ZyFFPhUVucJOXdXCLuEK4tCyPeWRQiLOYyMEyqSLQm UURwarJNWKRgDAEgOSEdWPNhTMKxFSDqZNgoCVGeBUJeMWJnRGXvYXVrPW4sZoOzUPKiNXE3YIImALWe MMAcveEFHLDeETSgFIp2YFZjUDAcWDQgJNszAJIkTLNhEJB7VAUdVINeQM7hAmLuQYCzLBI5HpZqCBKs KBBuleYTMZRcTODgGFH6DvWhFGLhUGQfDSnoPJVfWM XdHLqqCGDySORaSQ6aQaPnAPQpTJQyGNqcRATyZBZpksSPJLAkXNLmYDEjDlGjDMGvDIOxEDwbIJPvEF WgJUVzLSXnELMtBI4bCuZjHQAnTBA0JGwxPMEgXHIpidXATQDoWHEdBIytTXIkGOVcPDYqWHojRAKbTJ DmBUJ4RCIkJJHlIB2dGtXtIMXvIVNjYDHnKsE5QpDj JcJIzJMjoSizfmu6CKieS0s0DOBdURigAA9uvcMxBMPgPedfFw9jwJI9ZSYzPomKWe1Jg7LcevX6dcYp NpUyJOSdCbHnCM5J ID Date Data Source [id number] 09/25/2020 08:42:44 AM [facility] Name Value Range Interpretation Code Description Data Devi rce(s) Supporting Document(s) Glucose [Mass/volume] in Capillary blood by Glucometer 115 mg/dL 70- 140 [facility] ID Date Data Source [id number] 09/25/2020 07:37:42 AM [facility] Name Value Range Interpretation Code Description Data Devi rce(s) Supporting Document(s) History and Physical [facility] GAPRQz8lBdRMDxOr39/MNUlsWDTue1ThSRbgWQk2PSfzJFZmB5JiIGK8iY9eYJK5GLtCBwKiTqXdFHGp lbm [file] ICAgICAgICAgICAgICAgICAgICAgICAgICAgICAgICAgICAgICAgICAgICAgICANCiAgICAgICAgICAg ICAgICAgICAgICAgICAgICAgICAgICAgICAgICAgIC AgICAgICAgICAgICAgICAgICAgICAgICAgICAgICAgICAgICAgICAgICAgICAgICAgICAgICAgICANCi AgICAgICAgICAgICAgICAgICAgICAgICAgICAgICAgICAgICAgICAgICAgICAgICAgICAgICAgICAgIC AgICAgICAgICAgICAgICAgICAgICAgICAgICAgICAg ICAgICAgICANCiAgICAgICAgICAgICAgICAgICAgICAgICAgICAgICAgICAgICAgICAgICAgICAgICAg ICAgICAgICAgICAgICAgICAgICAgICAgICAgICAgICAgICAgICAgICAgICAgICAgICANCiAgICAgICAg ICAgICAgICAgICAgICAgICAgICAgICAgICAgICAgIC AgICAgICAgICAgICAgICAgICAgICAgICAgICAgICAgICAgICAgICAgICAgICAgICAgICAgICAgICAgIC ANCiAgICAgICAgICAgICAgICAgICAgICAgICAgICAgICAgICAgICAgICAgICAgICAgICAgICAgICAgIC AgICAgICAgICAgICAgICAgICAgICAgICAgICAgICAg ICAgICAgICAgICANCiAgICAgICAgICAgICAgICAgICAgICAgICAgICAgICAgICAgICAgICAgICAgICAg ICAgICAgICAgICAgICAgICAgICAgICAgICAgICAgICAgICAgICAgICAgICAgICAgICAgICANCiAgICAg ICAgICAgICAgICAgICAgICAgICAgICAgICAgICAgIC AgICAgICAgICAgICAgICAgICAgICAgICAgICAgICAgICAgICAgICAgICAgICAgICAgICAgICAgICAgIC AgICANCiAgICAgICAgICAgICAgICAgICAgICAgICAgICAgICAgICAgICAgICAgICAgICAgICAgICAgIC AgICAgICAgICAgICAgICAgICAgICAgICAgICAgICAg ICAgICAgICAgICAgICANCiAgICAgICAgICAgICAgICAgICAgICAgICAgICAgICAgICAgICAgICAgICAg ICAgICAgICAgICAgICAgICAgICAgICAgICAgICAgICAgICAgICAgICAgICAgICAgICAgICAgICANCjw/ bTKfC8dwyEKamtZ0M3qmNf6YZq9ZAF0bo5JxQTKsKV avqaYbGviSIoJcXLUyGlnAMtg2EJamML3RuEXaE1EoA5GuBSfvCM8MFOUcXFCqhAOlGWVhBFRhAeY3IU UbUSkzMV4UnFJrFAhoLOAkOKSiTxFdPILsLPUiWPWcPKSpQKXQZKWaNRByBcQqKEiqJB6Jd5KdlYC2ZY o+Yy5WLC9gy4QwJIboRhInSS5tns8KHBxSKfSkV2Tk yhV8NRR2WVTxQn8XBHNvALYkaLDbCOQyZXMYEkAqS9OmvU68QXNBBs2+MEiavyKwYftUBzB4NYFrc2Wf FOb3BG5RVOKvYQw8fMAyXCMAGIF6WRm6AVj2LPeeT6focMPbYkrtUZBiZPKzOR9bCM9vOQLvMVP6WpMn OATWKF5OKPYiBIAaaCFoZBMfAMXOWM9CXVqfTYU8BC AoqgNfzKLuBLeyAV9KZAMbynMsTcPjSQKNQSg+Rz7YEL9tw1XiMKeuNEZrUZ2qju8MQHsSVmFaH0D9tK WvL4T6HJbmIe6BANRtOEOwXyDjPLWSQQbdER7ZFD4ksxQ3DJ8KpMZnHQSwIOHycSZgWXm3P24lzFHuLF qzVT1GRQF+Marga+Mj9QNOIuAPDoXYPbHwYeIQJPSuOg I1RqN2WBn7FgE5ZbOP22uLbqdvQlDGnyVA0MIF7rAUSlETCSRQ8JrMKocX6jatHxYlIsZKVYWkNvU11x nSYaQUZwQNHtPITlNd7ZKGSwJ1OuaoIvzHjemhYeSWQhXPRPJR1ZNNcmvjHkoKTwzEncGZ60qMwmVA3H Wd4XKuNvAR5rkm8JdDOzIv6GOFFmEc4IWCQaJTZdXD TvROZ2YCDdBxIaESluHFWpVRYxGSS9WKVeBYLoQM2EVjXtJMBiQuI5KdPcDFOaHFWjay5SOSToQRBwLB DmAQPaTZLxWTWbVTikZRLzPERcAVC3DPBbDRJoIO1NTqFvZPIqTNT2YTZqJZZcYWQwsb7GNWFxCSHhHu tdXMHrTNGzCJXhQXgtEZJkVUG5JcE6BMRxHYFkYN2X NdAgTIWtNMl1PBxoYIMrPRDkgw1QKZDjHSBdCKR1DlQfMGNzCXXdDQygOIOxTYQjEHG9HCOoMRXlKN4L LpViLQQoLYQ8AuEqTALkXPEreg0WIBQiHZZlXYvrPSDzZAIzBLXnAJjmOMFnCNS9UQi3TAPhTGStEE3I DlJpTGWeSRJhYCZcDZJgKRGhzz0HBCIuBXDkNbX3Cx FxGYZrKODsCNgrHPUlPHY3OiA6DLUwAATiIF4LFuAkOAHyLVj1TCZnBYVcBLNkqd2PMZQzYNVyBFMeUP JfEEEiMESnESckYJFjFUD9JbIpDIYmFJXcZC1LBdOsXVTdDZb5PGEiHBLfSTZpql1YWOJuNIInPDc3PY KiROUiNZYpPBvdTOTvOQVtBJA6CPHvABWhNS0VTxKf SFYiKjHfHkHnMXMmDPDiun7SZLQySJZiZLNvSdOaKPKaQDRwYXdaJCAuVVBcRIM8THItUXAvWO4MOcAr GCVgHeXeSVWrGXMpHDThwv5IGQLnXZLuTpN6UmStMFBzYPAvCEnfYEOjVYCxPSS3YWEbZEZwQJ2MGoPb MHRoHmY7DnWrKPPuRUCeqi7KWMQvQJPqHuB0CJDpDT KrXYJwQGrqNDOlSGWmFTZ7TGLlLMAaEI3EUdIhGLDfRwTsTcDfSGKrGYBhqe1IOFTlURLgKSloVQBrLO QqEPHiKUzbYAEcLTC7EZS0QJYhTTNeUZ5MMdHlZVWvSrN5UZVsQMFqRFSpbp4RtYHhnYrcgi3QSGwUZd 7YiXozTHB0OHohAq7bmICyPMHoZMAMTg9FcoYsNYBp DBHJKGcaUUXtOYR0QRC7YOcmTvN2MMPyKUS3QCFgCyW0SOQ7PLVzSZKeUzN4GPg2EqT2ZRDpXUrcLCD3 DgRqHsCbPjm7ZOCcNWLoWdN+TH9uVOg+[id number]== ID Date Data Source [id number] 09/25/2020 05:56:18 AM [facility] Value Range Interpretation Code Description Data Devi rce(s) Supporting Document(s) Leukocytes [#/volume] in Blood by Automated count 6.8 10*3/uL 4-10 [facility] Erythrocytes [#/volume] in Blood by Automated count 3.04 10*6/uL 4.6- 6.1 L [facility] Hemoglobin [Mass/volume] in Blood 9.6 g/dL 13.5-18 L [facility] Hematocrit [Volume Fraction] of Blood by Automated count 29.2 % 4 1-53 L [facility] Erythrocyte mean corpuscular volume [Entitic volume] by Auto mated count 95.9 fL 80-96 [facility] Erythrocyte mean corpuscular hemoglobin [Entitic mass] by Automated count 31.5 pg 27-33 [facility] Erythrocyte mean corpuscular hemoglobin concentration [Mass/volume] by Automated count 32.9 g/dL 32.0-[facility] [Ratio] by Automated count 16.9 % 11.5-14.5 H [facility] Platelets [#/volume] in Blood by Automated count 143 10*3/uL 150-400 L [facility] ID Date Data Source [id number] 09/25/2020 06:12:26 AM [facility] Value Range Interpretation Code Description Data Devi rce(s) Supporting Document(s) Magnesium [Mass/volume] in Serum or Plasma 2.0 mg/dL 1.6-2.4 [facility] ID Date Data Source [id number] 09/25/2020 06:12:26 AM [facility] Value Range Interpretation Code Description Data Devi rce(s) Supporting Document(s) Phosphate [Mass/volume] in Serum or Plasma 3.2 mg/dL 2.5-4.5 [facility] ID Date Data Source [id number] 09/25/2020 06:12:26 AM [facility] Value Range Interpretation Code Description Data Devi rce(s) Supporting Document(s) Bicarbonate [Moles/volume] in Serum 18 mmol/L 22-29 L [facility] Chloride [Moles/volume] in Serum or Plasma 110 mmol/L 98-107 H [facility] Creatinine [Mass/volume] in Serum or Plasma 3.12 mg/dL 0.70-1.20 H [facility] Glucose [Mass/volume] in Serum or Plasma 164 mg/dL 70-140 H [facility] Potassium [Moles/volume] in Serum or Plasma 5.0 mmol/L 3.4-5.1 [facility] Sodium [Moles/volume] in Serum or Plasma 139 mmol/L 136-145 [facility] Urea nitrogen [Mass/volume] in Serum or Plasma 39 mg/dL 8-23 H [facility] Anion gap 3 in Serum or Plasma 11 mmol/L 8-15 [facility] Osmolality of Serum or Plasma by calculation 301 mosm/kg 275-300 H [facility] Creatinine/Urea nitrogen [Mass Ratio] in Serum or Plasma 13 [facility] Calcium [Mass/volume] in Serum or Plasma 8.0 mg/dL 8.8-10.2 [facility] Glomerular filtration rate/1.73 sq M pre dicted among non-blacks [Volume Rate/Area] in Serum or Plasma by Creatinine-based formula (MDRD) >6 0 [facility] Glomerular filtration rate/1.73 sq M pre dicted among blacks [Volume Rate/Area] in Serum or Plasma by Creatinine-based formula (MDRD) >60 [facility] ID Date Data Source [id number] 09/25/2020 05:21:31 AM [facility] Value Range Interpretation Code Description Data Devi rce(s) Supporting Document(s) Glucose [Mass/volume] in Capillary blood by Glucometer 162 mg/dL 70- 140 H [facility] ID Date Data Source [id number] 09/25/2020 04:29:14 AM [facility] Value Range Interpretation Code Description Data Devi rce(s) Supporting Document(s) Glucose [Mass/volume] in Capillary blood by Glucometer 181 mg/dL 70- 140 H [facility] ID Date Data Source [id number] 09/25/2020 03:50:10 AM [facility] Value Range Interpretation Code Description Data Devi rce(s) Supporting Document(s) Glucose [Mass/volume] in Capillary blood by Glucometer 177 mg/dL 70- 140 H [facility] ID Date Data Source [id number] 09/25/2020 03:19:58 AM [facility] Value Range Interpretation Code Description Data Devi rce(s) Supporting Document(s) Glucose [Mass/volume] in Capillary blood by Glucometer 197 mg/dL 70- 140 [facility] ID Date Data Source [id number] 09/25/2020 02:58:09 AM [facility] Value Range Interpretation Code Description Data Devi rce(s) Supporting Document(s) Glucose [Mass/volume] in Capillary blood by Glucometer 213 mg/dL 70- 140 [facility] ID Date Data Source [id number] 09/25/2020 12:52:24 AM [facility] Value Range Interpretation Code Description Data Devi rce(s) Supporting Document(s) Leukocytes [#/volume] in Blood by Automated count 6.8 10*3/uL 4-10 [facility] Erythrocytes [#/volume] in Blood by Automated count 3.21 10*6/uL 4.6- 6.1 [facility] Hemoglobin [Mass/volume] in Blood 10.1 g/dL 13.5-18 [facility] Hematocrit [Volume Fraction] of Blood by Automated count 31.3 % 4 1-53 [facility] Erythrocyte mean corpuscular volume [Entitic volume] by Auto mated count 97.5 fL 80-96 [facility] Erythrocyte mean corpuscular hemoglobin [Entitic mass] by Automated count 31.4 pg 27-33 [facility] Erythrocyte mean corpuscular hemoglobin concentration [Mass/volume] by Automated count 32.2 g/dL 32.0-[facility].0 [facility] width [Ratio] by Automated count 17.0 % 11.5-14.5 [facility] Platelets [#/volume] in Blood by Automated count 137 10*3/uL 150-400 [facility] ID Date Data Source [id number] 09/25/2020 01:14:57 AM [facility] Value Range Interpretation Code Description Data Devi rce(s) Supporting Document(s) Bicarbonate [Moles/volume] in Serum 19 mmol/L 22-29 [facility] Chloride [Moles/volume] in Serum or Plasma 111 mmol/L 98-107 [facility] Creatinine [Mass/volume] in Serum or Plasma 3.02 mg/dL 0.70-1.20 [facility] Glucose [Mass/volume] in Serum or Plasma 291 mg/dL 70-140 H [facility] Potassium [Moles/volume] in Serum or Plasma 5.7 mmol/L 3.4-5.1 [facility] Sodium [Moles/volume] in Serum or Plasma 137 mmol/L 136-145 [facility] Urea nitrogen [Mass/volume] in Serum or Plasma 38 mg/dL 8-23 [facility] Anion gap 3 in Serum or Plasma 7 mmol/L 8-15 L [facility] Osmolality of Serum or Plasma by calculation 304 mosm/kg 275-300 [facility] Creatinine/Urea nitrogen [Mass Ratio] in Serum or Plasma 13 [facility] Calcium [Mass/volume] in Serum or Plasma 7.8 mg/dL 8.8-10.2 L [facility] Glomerular filtration rate/1.73 sq M pre dicted among non-blacks [Volume Rate/Area] in Serum or Plasma by Creatinine-based formula (MDRD) >6 0 [facility] Glomerular filtration rate/1.73 sq M pre dicted among blacks [Volume Rate/Area] in Serum or Plasma by Creatinine-based formula (MDRD) >60 [facility] ID Date Data Source [id number] 09/25/2020 01:14:57 AM [facility] Value Range Interpretation Code Description Data Devi rce(s) Supporting Document(s) Magnesium [Mass/volume] in Serum or Plasma 1.7 mg/dL 1.6-2.4 [facility] ID Date Data Source [id number] 09/25/2020 01:14:57 AM [facility] Value Range Interpretation Code Description Data Devi rce(s) Supporting Document(s) Phosphate [Mass/volume] in Serum or Plasma 2.9 mg/dL 2.5-4.5 [facility] ID Date Data Source [id number] 09/25/2020 12:31:05 AM [facility] Value Range Interpretation Code Description Data Devi rce(s) Supporting Document(s) Glucose [Mass/volume] in Capillary blood by Glucometer 210 mg/dL 70- 140 H [facility] ID Date Data Source [id number] 09/24/2020 11:15:40 PM [facility] Value Range Interpretation Code Description Data Devi rce(s) Supporting Document(s) Glucose [Mass/volume] in Capillary blood by Glucometer 223 mg/dL 70- 140 H [facility] ID Date Data Source [id number] 09/24/2020 10:27:00 PM EST [facility] Name Value Range Interpretation Code Description Data Devi rce(s) Supporting Document(s) SARS-CoV-2 RNA 2019 nCoV Real-Time RT-PCR: NOT DETECTED [facility] This lab was ordered by [facility] and reported by [facility]. ID Date Data Source [id number] 09/25/2020 11:51:03 AM [facility] Value Range Interpretation Code Description Data Devi rce(s) Supporting Document(s) Specimen source [Identifier] of Unspecified specimen [facility] SARS-CoV-2 RNA 2019 nCoV Real-Time RT-PCR: NOT DETECTED [facility] Assay Performed [facility] Patients first test for [facility] Patient employed in healthcare setting [facility] Patient has symptoms related to [facility] When did you start to experience these symptoms [Date and time] [Phen X] [facility] Patient was hospitalized because of this [facility] patient was admitted to ICU for [facility] Patient resides in a congregate care setting [facility] status [facility] ID Date Data Source [id number] 09/24/2020 10:25:52 PM [facility] Value Range Interpretation Code Description Data Devi rce(s) Supporting Document(s) Glucose [Mass/volume] in Capillary blood by Glucometer 158 mg/dL 70- 140 [facility] ID Date Data Source [id number] 09/24/2020 09:50:51 PM [facility] Value Range Interpretation Code Description Data Devi rce(s) Supporting Document(s) Glucose [Mass/volume] in Capillary blood by Glucometer 126 mg/dL 70- 140 [facility] ID Date Data Source [id number] 09/24/2020 09:08:30 PM EST [facility] Name Value Range Interpretation Code Description Data Devi rce(s) Supporting Document(s) Glucose [Mass/volume] in Capillary blood by Glucometer 122 mg/dL 70- 140 [facility] ID Date Data Source [id number] 09/24/2020 08:28:35 PM [facility] Value Range Interpretation Code Description Data Devi rce(s) Supporting Document(s) Glucose [Mass/volume] in Capillary blood by Glucometer 113 mg/dL 70- 140 [facility] ID Date Data Source [id number] 09/24/2020 07:27:05 PM [facility] Value Range Interpretation Code Description Data Devi rce(s) Supporting Document(s) Leukocytes [#/volume] in Blood by Automated count 5.5 10*3/uL 4-10 [facility] Erythrocytes [#/volume] in Blood by Automated count 3.47 10*6/uL 4.6- 6.1 L [facility] Hemoglobin [Mass/volume] in Blood 11.0 g/dL 13.5-18 L [facility] Hematocrit [Volume Fraction] of Blood by Automated count 33.4 % 4 1-53 [facility] Erythrocyte mean corpuscular volume [Entitic volume] by Auto mated count 96.1 fL 80-96 [facility] Erythrocyte mean corpuscular hemoglobin [Entitic mass] by Automated count 31.5 pg 27-33 [facility] Erythrocyte mean corpuscular hemoglobin concentration [Mass/volume] by Automated count 32.8 g/dL 32.0-36.0 [facility] distribution width [Ratio] by Automated count 16.9 % 11.5-14.5 [facility] Platelets [#/volume] in Blood by Automated count 138 10*3/uL 150-400 L [facility] ID Date Data Source [id number] 09/24/2020 07:58:22 PM [facility] Value Range Interpretation Code Description Data Devi rce(s) Supporting Document(s) Thyroxine (T4) free [Mass/volume] in Serum or Plasma 1.11 ng/dL 0.93- 1.70 [facility] ID Date Data Source [id number] 09/24/2020 07:58:22 PM [facility] Value Range Interpretation Code Description Data Devi rce(s) Supporting Document(s) Bicarbonate [Moles/volume] in Serum 18 mmol/L 22-29 L [facility] Chloride [Moles/volume] in Serum or Plasma 113 mmol/L 98-107 H [facility] Creatinine [Mass/volume] in Serum or Plasma 2.97 mg/dL 0.70-1.20 H [facility] Glucose [Mass/volume] in Serum or Plasma 92 mg/dL 70-140 [facility] Potassium [Moles/volume] in Serum or Plasma 5.7 mmol/L 3.4-5.1 H [facility] Sodium [Moles/volume] in Serum or Plasma 142 mmol/L 136-145 [facility] Urea nitrogen [Mass/volume] in Serum or Plasma 39 mg/dL 8-23 [facility] Anion gap 3 in Serum or Plasma 11 mmol/L 8-15 [facility] Osmolality of Serum or Plasma by calculation 303 mosm/kg 275-300 [facility] Creatinine/Urea nitrogen [Mass Ratio] in Serum or Plasma 13 [facility] Calcium [Mass/volume] in Serum or Plasma 8.6 mg/dL 8.8-10.2 L [facility] Glomerular filtration rate/1.73 sq M pre dicted among non-blacks [Volume Rate/Area] in Serum or Plasma by Creatinine-based formula (MDRD) >6 0 [facility] Glomerular filtration rate/1.73 sq M pre dicted among blacks [Volume Rate/Area] in Serum or Plasma by Creatinine-based formula (MDRD) >60 [facility] ID Date Data Source [id number] 09/24/2020 07:58:22 PM [facility] Value Range Interpretation Code Description Data Devi rce(s) Supporting Document(s) Phosphate [Mass/volume] in Serum or Plasma 3.2 mg/dL 2.5-4.5 [facility] ID Date Data Source [id number] 09/24/2020 07:58:22 PM [facility] Value Range Interpretation Code Description Data Devi rce(s) Supporting Document(s) Magnesium [Mass/volume] in Serum or Plasma 1.3 mg/dL 1.6-2.4 [facility] ID Date Data Source [id number] 09/24/2020 07:58:22 PM [facility] Value Range Interpretation Code Description Data Devi rce(s) Supporting Document(s) Triiodothyronine (T3) Free [Mass/volume] in Serum or Plasma 1.67 pg/mL 2.00-4.40 L [facility] ID Date Data Source [id number] 09/24/2020 07:58:22 PM [facility] Name Value Range Interpretation Code Description Data Devi rce(s) Supporting Document(s) Natriuretic peptide.B prohormone N-Terminal [Mass/volume] in Serum or Plasma <450 H [facility] ID Date Data Source [id number] 09/24/2020 07:52:55 PM [facility] Name Value Range Interpretation Code Description Data Devi rce(s) Supporting Document(s) Hemoglobin A1c/Hemoglobin.total in Blood by HPLC 5.1 % 4.0-6.0 [facility] (NOTE)<5.7% Average risk of diabetes (ADA)5.7-6.4% Increased risk of diabetes(ADA)>/= 6.5% Diagnostic for diabetes(ADA) Glucose mean value [Mass/volume] in Blood Estimated fr om glycated hemoglobin 99 mg/dL <126 [facility] ID Date Data Source [id number] 09/24/2020 06:53:20 PM [facility] Name Value Range Interpretation Code Description Data Devi rce(s) Supporting Document(s) Glucose [Mass/volume] in Capillary blood by Glucometer 83 mg/dL 70- 140 [facility] ID Date Data Source [id number] 09/24/2020 01:36:00 PM EST [facility] Name Value Range Interpretation Code Description Data Devi rce(s) Supporting Document(s) SARS coronavirus 2 RNA [Presence] in Res piratory specimen by BEKA with probe detection NEGATIVE [facility] This lab was ordered by [facility] a nd reported by [facility]. ID Date Data Source [id number] 09/02/2020 05:29:15 PM EST [facility] Name Value Range Interpretation Code Description Data Devi rce(s) Supporting Document(s) &PDF [facility] WGIHQt6lMrGLTlYv98/CRXghXLNna9BqGEwzRUd1WWchDAYjF4UzoJcuBO8YM2YJURxDDSyKBO5xYMPg oRX [file] AgICAgICAgICAgICAgICAgICAgICAgICAgICAgICAg ICAgICAgICAgICAgICAgICAgICAgICAgICAgICAgICAgICAgICAgICAgICAgICAgICAgICAgICAgICAg ICAgICAgICANCiAgICAgICAgICAgICAgICAgICAgICAgICAgICAgICAgICAgICAgICAgICAgICAgICAg ICAgICAgICAgICAgICAgICAgICAgICAgICAgICAgIC AgICAgICAgICAgICAgICAgICANCiAgICAgICAgICAgICAgICAgICAgICAgICAgICAgICAgICAgICAgIC AgICAgICAgICAgICAgICAgICAgICAgICAgICAgICAgICAgICAgICAgICAgICAgICAgICAgICAgICAgIC ANCiAgICAgICAgICAgICAgICAgICAgICAgICAgICAg ICAgICAgICAgICAgICAgICAgICAgICAgICAgICAgICAgICAgICAgICAgICAgICAgICAgICAgICAgICAg ICAgICAgICAgICANCiAgICAgICAgICAgICAgICAgICAgICAgICAgICAgICAgICAgICAgICAgICAgICAg ICAgICAgICAgICAgICAgICAgICAgICAgICAgICAgIC AgICAgICAgICAgICAgICAgICAgICANCiAgICAgICAgICAgICAgICAgICAgICAgICAgICAgICAgICAgIC AgICAgICAgICAgICAgICAgICAgICAgICAgICAgICAgICAgICAgICAgICAgICAgICAgICAgICAgICAgIC AgICANCiAgICAgICAgICAgICAgICAgICAgICAgICAg ICAgICAgICAgICAgICAgICAgICAgICAgICAgICAgICAgICAgICAgICAgICAgICAgICAgICAgICAgICAg ICAgICAgICAgICAgICANCiAgICAgICAgICAgICAgICAgICAgICAgICAgICAgICAgICAgICAgICAgICAg ICAgICAgICAgICAgICAgICAgICAgICAgICAgICAgIC AgICAgICAgICAgICAgICAgICAgICAgICANCiAgICAgICAgICAgICAgICAgICAgICAgICAgICAgICAgIC AgICAgICAgICAgICAgICAgICAgICAgICAgICAgICAgICAgICAgICAgICAgICAgICAgICAgICAgICAgIC AgICAgICANCiAgICAgICAgICAgICAgICAgICAgICAg ICAgICAgICAgICAgICAgICAgICAgICAgICAgICAgICAgICAgICAgICAgICAgICAgICAgICAgICAgICAg ICAgICAgICAgICAgICAgICANCjw/tOIqF9yooGVtarT2M8asIj7WZk4UJV0py3GaZLIhUJxaflJqKvdI DgNrGYSmPwdUHaa1WWihCD5KrJXgP8XqX3GiPZduRC 0CJWZsDLPlqXBpIZWaRXAjFpR1INTzGHpuYQ1ZhNAxEVrzPSInGNSkLvWwCCUxJH9NOVLfL906quUyPm 4FSy0IRhQcMR5ewn4JRfVoOSOgAujLJph3KEyxRD7IbYFwI7ZmjFIqu0iTLfHjF8EHLMP2WHZeWv0ISM AjYpKqPJLaSBjjED0hMZGzTKOYeCdxmhA9KD9WWP3u ypCoYW5KHqUyFh5dKo6CFzMjA9BsQ0NjVRGxRUHHPKvkJF4VSTWtIOX9NIQdOHIoSSDUYpNpT25iVL2X Q1Obu33pAnB8AKFtUsUtMMrlRC81eAycqeGleNIhaIwhMI8GZw2+DQplbmRvYmoNCnhyZWYNCjAgMjIN UbQnAPUaYPTuZIQvYjC9SwAyLj4CXXOmCVKiEUTsXd ZlEYVjHOEhDBfeHOYlQZX0BunwHJPpJIRkXW5WMhTbVJSoChD9ArDuBBHzTJBjiw6NFASiWLVqBCG7AV UqHNWqRGTzYXfkACSiEFWsUCO5VTEzEWYuYF6IOpStLXGzFEB7BVGyXODmXDXsjz3HWYGiNSApPOxfMQ MnRFPlTRKxBOpzQXYbVCR4VSKuOOOkNPYfJY8WCkCa ZDQqKQM8RtUcRIUnEERpes3SADJhXZFiAtU3HpGuIHFtJBOuUTueJAJhHLQ9RzZ5GKViFWPlKC9REbGj ANKzKQsuAXotQTRkONFevn6ZIEHnVITjLAYdFPCpLUPqVAFrDGqcMLYyZNL8AGd9CPSgEVXqMK9FHbJp MHBbOBm0IZGeSJJaDQJzjs1BVENeLAHjUMj3InBvZV TwDLCdQGhlMDAbVGO6JBJvHQDpOHNaEJ7HWqMbMVIgVEQ1PyGfUZYcBJHxlr8TLHHpXRJsBTO1YKUeYG AdOOHcOTnuZDNiYUZ6AJkiESJxOWQiQE8BMbWnTHKgMwG1GtTyGNCgROPouz1WnIIcfVwqrk2MNUwTHi 1PdWunDITpISiaRw4eaQHvNXQeSNEDUn5RsgMuISEa MGBDAUevDRTrSGX8GST7MBIcOnJuOvIjEtM0KaAsWdQdIsZlZSKbSCMtVbT8ETG6ITAwUCEdLVPxHVSa Eas2Y8CqSIQ4PqBkHIL0ZYA+DF7bRDk+Pv0Bq9EsxvG7tzCtSCwiMRegIp4XFMCNZ9GZFb== ID Date Data Source [id number] 07/26/2020 04:04:00 PM EST [facility] ([facility]) Name Value Range Interpretation Code Description Data Devi rce(s) Supporting Document(s) CPK Creatine Phosphokinase 167 U/L 39-308 Kailee l (applies to non-numeric results) [facility] ([facility]) MB/CK Relative Index 3.11 Normal (applies to non-num jerrod results) [facility] ([facility]) <content>DIAGNOSIS CRITERIA</content>
<content>MMB ng/ml Relative Index (RI)</content>
<content>NON-AMI < or = 5 N/A</content>
<content>WALTON ZONE > 5 < or = 4</content>
<content>AMI > 5 > 4</content>
<content></content> CK-MB Value Mass 5.2 ng/mL Above high normal [facility] ([facility]) Troponin I 0.04 ng/mL Significant change down [facility] ([facility]) <content>Troponin I Reference Interval f or Siemens [place] LOCI:</content>
<content></content>
<content>99th Percentile= 0.00-0.045 ng/ml</content>
<content></content>
<content>Risk Stratification:</content>
<content><= 0.10 ng/ml Decreased Risk for Adverse Clinical</content>
<content>Events.</content>
<content>0.10-1.50 ng/ml Increased Risk for Adverse Clinical</content>
<content>Events. Evaluation of additional</content>
<content>criterion and/or repeat testing in 2-6</content>
<content>hours is suggested to rule out myocardial</content>
<content>damage.</content>
<content>>= 1.50 ng/ml Indicative of Myocardial Injury.</content>
<content></content> ID Date Data Source [id number] 07/26/2020 01:12:00 PM EST [facility] ([facility]) Name Value Range Interpretation Code Description Data Devi rce(s) Supporting Document(s) Lipase [Enzymatic activity/volume] in Serum or Plasma 158 U/L 73-393 Normal (applies to non-numeric results) [facility] Natriuretic peptide.B prohormone N-Terminal [Mass/volu me] in Serum or Plasma 2213 pg/mL Above high normal [facility] ([facility]) Thyrotropin [Units/volume] in Serum or Plasma 5.180 uIU/ML 0. 358-3.740 Above high normal [facility] ([facility]) ID Date Data Source [id number] 07/26/2020 01:12:00 PM EST [facility] ([facility]) Name Value Range Interpretation Code Description Data Devi rce(s) Supporting Document(s) Glucose, Fasting 110 mg/dL 70-100 Above high normal [facility] Blood Urea Nitrogen 61 mg/dL 7-18 Above high normal [facility] ([facility]) Creatinine For GFR 3.31 mg/dL 0.70-1.30 Above high normal [facility] ([facility]) Glomerular Filtration Rate 18.9 Below low normal [facility] ([facility]) <content>Units are mL/min/1.73 m2</content>
<content></content>
<content>Chronic Kidney Disease Staging per NKF:</content>
<content></content>
<content>Stage I & II GFR >=60 Normal to Mildly Decreased</content>
<content>Stage III GFR 30- 59 Moderately Decreased</content>
<content>Stage IV GFR 15-29 Severely Decreased</content>
<content>Stage V GFR <15 Very Little GFR Left</content>
<content>ESRD GFR <15 on SLAB OFF MILL TENDER</content>
<content></content> Sodium Level 137 meq/L 136-145 Normal (applies to non-numeric res ults) [facility] ([facility]) Chloride Level 106 meq/L 98-107 Normal (applies to non-numeric r esults) [facility] ([facility]) Potassium Serum 4.7 meq/L 3.5-5.1 Normal (applies to non-numeric results) [facility] Carbon Dioxide Level 28 meq/L 21-32 Normal (applies to non-num jerrod results) [facility] ([facility]) Anion Gap 3 meq/L 8-16 Below low normal [facility] ([facility]) Calcium Level 8.2 mg/dL 8.8-10.2 Below low normal [facility] ([facility]) ID Date Data Source [id number] 07/26/2020 01:12:00 PM EST [facility] ([facility]) Name Value Range Interpretation Code Description Data Devi rce(s) Supporting Document(s) Ast/Sgot 27 U/L 7-37 Normal (applies to non-numeric resul ts) [facility] ([facility]) Alt/SGPT 29 U/L 12-78 Normal (applies to non-numeric resul ts) [facility] ([facility]) Bilirubin,Total 0.3 mg/dL 0.2-1.0 Normal (applies to non-numeric results) [facility] ([facility]) Alkaline Phosphatase 88 U/L 45-117 Normal (applies to non-num jerrod results) [facility] ([facility]) Total Protein 6.0 GM/DL 6.4-8.2 Below low normal [facility] ([facility]) Bilirubin,Direct 0.1 mg/dL 0.0-0.2 Normal (applies to non-numeric results) [facility] ([facility]) Albumin 2.9 GM/DL 3.2-5.2 Below low normal [facility] ([facility]) Albumin/Globulin Ratio 0.9 Normal (applies to non-n umeric results) [facility] ([facility]) ID Date Data Source [id number] 07/26/2020 01:12:00 PM EST [facility] ([facility]) Name Value Range Interpretation Code Description Data Devi rce(s) Supporting Document(s) CK-MB Value Mass 5.2 ng/mL Above high normal [facility] ([facility]) CPK Creatine Phosphokinase 165 U/L 39-308 Kailee l (applies to non-numeric results) [facility] ([facility]) Troponin I 0.03 ng/mL Normal (applies to non-numeric resul ts) [facility]) <content>Troponin I Reference Interval f or Siemens [place] LOCI:</content>
<content></content>
<content>99th Percentile= 0.00-0.045 ng/ml</content>
<content></content>
<content>Risk Stratification:</content>
<content><= 0.10 ng/ml Decreased Risk for Adverse Clinical</content>
<content>Events.</content>
<content>0.10-1.50 ng/ml Increased Risk for Adverse Clinical</content>
<content>Events. Evaluation of additional</content>
<content>criterion and/or repeat testing in 2-6</content>
<content>hours is suggested to rule out myocardial</content>
<content>damage.</content>
<content>>= 1.50 ng/ml Indicative of Myocardial Injury.</content>
<content></content> MB/CK Relative Index 3.15 Normal (applies to non-num jerrod results) [facility] ([facility]) <content>DIAGNOSIS CRITERIA</content>
<content>MMB ng/ml Relative Index (RI)</content>
<content>NON-AMI < or = 5 N/A</content>
<content>W[place]ONE > 5 < or = 4</content>
<content>AMI > 5 > 4</content>
<content></content> ID Date Data Source [id number] 07/26/2020 01:12:00 PM EST [facility] Name Value Range Interpretation Code Description Data Devi rce(s) Supporting Document(s) aPTT in Platelet poor plasma by Coagulation assay 26.5 s 24.2-38.5 Normal (applies to non-numeric results) [facility] ([facility]) ID Date Data Source [id number] 07/26/2020 01:12:00 PM EST [facility] ([facility]) Name Value Range Interpretation Code Description Data Devi rce(s) Supporting Document(s) Prothrombin Time 13.0 s 12.5-14.3 Normal (applies to non-numeric results) [facility] ([facility]) Inr 0.96 Normal (applies to non-numeric resul ts) [facility] ([facility]) THERAPUTIC HUMAN INR VALUES INDICATIONS NORMAL RANGES PROPHYLAXIS/TREATMENT OF: VENOUS THROMBOSIS 2.0-3.0 PULMONARY EMBOLISM 2.0-3.0 PREVENTION OF SYSTEMIC EMBOLISM FROM: TISSUE HEART VALVES 2.0-3.0 ACUTE MYOCARDIAL INFARCTION 2.0-3.0 VALVULAR HEART DISEASE 2.0-3.0 ATRIAL FIBRILLATION 2.0-3.0 MECHANICAL VALVES(HIGH RISK) 2.5-3.5 RECURRENT MYOCARDIAL INFARCTION 2.5-3.5 ID Date Data Source [id number] 07/26/2020 01:12:00 PM EST [facility] ([facility]) Name Value Range Interpretation Code Description Data Devi rce(s) Supporting Document(s) White Blood Count 4.8 10 4.0-10.0 Normal (applies to non-numeri c results) [facility] ([facility]) Hemoglobin 11.5 g/dL 13.5-17.5 Below low normal [facility]) Red Blood Count 3.83 10 4.30-6.10 Below low normal [facility] ([facility]) Hematocrit 36.0 % 42.0-52.0 Below low normal [facility] ([facility]) Mean Corpuscular Volume 94.0 fl 80.0-96.0 Normal ( applies to non-numeric results) [facility] ([facility]) Mean Corpuscular HGB Conc 31.9 g/dL 32.0-36.5 Below low normal [facility]) Mean Corpuscular Hemoglobin 30.0 pg 27.0-33.0 Norm al (applies to non-numeric results) [facility]) Red Cell Distribution Width 14.1 % 11.5-14.5 Norm al (applies to non-numeric results) [facility] ([facility]) Platelet Count, Automated 170 10 150-450 Normal (applies to non-numeric results) [facility] ([facility]) Neutrophils % 72.5 % 36.0-66.0 Above high normal [facility] ([facility]) Lymph % 17.6 % 24.0-44.0 Below low normal [facility] Eos % 2.7 % 0.0-3.0 Normal (applies to non-numeric resul ts) [facility] ([facility]) [place] % 6.6 % 0.0-5.0 Above high normal [facility] ([facility]) Baso % 0.4 % 0.0-1.0 Normal (applies to non-numeric resul ts) [facility] ([facility]) Nucleated Red Blood Cell % 0.0 % 0-0 Normal (applies to n on-numeric results) [facility] ([facility]) Immature Granulocyte % 0.2 % 0-3.0 Normal (applies to non-n umeric results) [facility] ([facility]) Neutrophils # 3.5 10 1.5-8.5 Normal (applies to non-numeric re sults) [facility] ([facility]) Lymph # 0.9 10 1.5-5.0 Below low normal [facility] [place] # 0.3 10 0.0-0.8 Normal (applies to non-numeric resul ts) [facility] ([facility]) Eos # 0.1 10 0.0-0.5 Normal (applies to non-numeric resul ts) [facility] ([facility]) Baso # 0.0 10 0.0-0.2 Normal (applies to non-numeric resul ts) [facility] ([facility]) ID Date Data Source [id number] 06/16/2020 08:41:00 AM EDT [facility] ([facility]) Name Value Range Interpretation Code Description Data Devi rce(s) Supporting Document(s) Natriuretic peptide.B prohormone N-Terminal [Mass/volu me] in Serum or Plasma 6362 pg/mL Above high normal [facility] ([facility]) ID Date Data Source [id number] 06/16/2020 08:41:00 AM EDT [facility] ([facility]) Name Value Range Interpretation Code Description Data Devi rce(s) Supporting Document(s) Glucose, Fasting 92 mg/dL 70-100 Normal (applies to non-numeric results) [facility] ([facility]) Blood Urea Nitrogen 56 mg/dL 7-18 Above high normal [facility] ([facility]) Creatinine For GFR 3.05 mg/dL 0.70-1.30 Above high normal [facility] ([facility]) Sodium Level 138 meq/L 136-145 Normal (applies to non-numeric res ults) [facility] ([facility]) Glomerular Filtration Rate 20.8 Below low normal [facility]) <content>Units are mL/min/1.73 m2</content>
<content></content>
<content>Chronic Kidney Disease Staging per NKF:</content>
<content></content>
<content>Stage I & II GFR >=60 Normal to Mildly Decreased</content>
<content>Stage III GFR 30- 59 Moderately Decreased</content>
<content>Stage IV GFR 15-29 Severely Decreased</content>
<content>Stage V GFR <15 Very Little GFR Left</content>
<content>ESRD GFR <15 on SLAB [employer]</content>
<content></content> Chloride Level 102 meq/L 98-107 Normal (applies to non-numeric r esults) [facility] ([facility]) Carbon Dioxide Level 30 meq/L 21-32 Normal (applies to non-num jerrod results) [facility] ([facility]) Potassium Serum 4.4 meq/L 3.5-5.1 Normal (applies to non-numeric results) [facility] ([facility]) Anion Gap 6 meq/L 8-16 Below low normal [facility]) Calcium Level 8.5 mg/dL 8.8-10.2 Below low normal MEDEN T ([facility]) Alt/SGPT 26 U/L 12-78 Normal (applies to non-numeric resul ts) [facility] ([facility]) Ast/Sgot 22 U/L 7-37 Normal (applies to non-numeric resul ts) [facility] ([facility]) Alkaline Phosphatase 80 U/L 45-117 Normal (applies to non-num jerrod results) [facility] ([facility]) Bilirubin,Total 0.4 mg/dL 0.2-1.0 Normal (applies to non-numeric results) [facility] ([facility]) Total Protein 6.5 GM/DL 6.4-8.2 Normal (applies to non-numeric re sults) [facility] ([facility]) Albumin 3.2 GM/DL 3.2-5.2 Normal (applies to non-numeric resul ts) [facility] ([facility]) Albumin/Globulin Ratio 1.0 Normal (applies to non-n umeric results) [facility] ([facility]) ID Date Data Source [id number] 06/16/2020 08:41:00 AM EDT [facility] ([facility]) Name Value Range Interpretation Code Description Data Devi rce(s) Supporting Document(s) White Blood Count 4.7 10 4.0-10.0 Normal (applies to non-numeri c results) [facility] ([facility]) Red Blood Count 3.89 10 4.30-6.10 Below low normal MED ENT ([facility]) Hemoglobin 11.6 g/dL 13.5-17.5 Below low normal [facility] ( [facility]) Mean Corpuscular Volume 96.9 fl 80.0-96.0 Above high normal [facility] ([facility]) Hematocrit 37.7 % 42.0-52.0 Below low normal [facility] ([facility]) Mean Corpuscular HGB Conc 30.8 g/dL 32.0-36.5 Below low normal [facility] ([facility]) Mean Corpuscular Hemoglobin 29.8 pg 27.0-33.0 Norm al (applies to non-numeric results) [facility] ([facility]) Platelet Count, Automated 149 10 150-450 Below low normal [facility] ([facility]) Red Cell Distribution Width 13.0 % 11.5-14.5 Norm al (applies to non-numeric results) [facility] ([facility]) Lymph % 19.9 % 24.0-44.0 Below low normal [facility] Neutrophils % 68.6 % 36.0-66.0 Above high normal MEDE NT ([facility]) [place] % 6.4 % 0.0-5.0 Above high normal [facility] Eos % 4.1 % 0.0-3.0 Above high normal [facility] Baso % 0.4 % 0.0-1.0 Normal (applies to non-numeric resul ts) [facility] ([facility]) Immature Granulocyte % 0.6 % 0-3.0 Normal (applies to non-n umeric results) [facility] ([facility]) Nucleated Red Blood Cell % 0.0 % 0-0 Normal (applies to n on-numeric results) [facility] ([facility]) Lymph # 0.9 10 1.5-5.0 Below low normal [facility]) Neutrophils # 3.2 10 1.5-8.5 Normal (applies to non-numeric re sults) [facility] ([facility]) Eos # 0.2 10 0.0-0.5 Normal (applies to non-numeric resul ts) [facility] ([facility]) [place] # 0.3 10 0.0-0.8 Normal (applies to non-numeric resul ts) [facility] ([facility]) Baso # 0.0 10 0.0-0.2 Normal (applies to non-numeric resul ts) [facility] ([facility]) ID Date Data Source [id number] 06/04/2020 09:26:00 AM EDT [facility] ([facility]) Name Value Range Interpretation Code Description Data Deiv rce(s) Supporting Document(s) Blood Urea Nitrogen 41 mg/dL 7-18 Above high normal [facility] ([facility]) Glucose, Fasting 91 mg/dL 70-100 Normal (applies to non-numeric results) [facility] ([facility]) Glomerular Filtration Rate 21.4 Below low normal [facility] ([facility]) <content>Units are mL/min/1.73 m2</content>
<content></content>
<content>Chronic Kidney Disease Staging per NKF:</content>
<content></content>
<content>Stage I & II GFR >=60 Normal to Mildly Decreased</content>
<content>Stage III GFR 30- 59 Moderately Decreased</content>
<content>Stage IV GFR 15-29 Severely Decreased</content>
<content>Stage V GFR <15 Very Little GFR Left</content>
<content>ESRD GFR <15 on SLAB [employer]</content>
<content></content> Sodium Level 137 meq/L 136-145 Normal (applies to non-numeric res ults) [facility] ([facility]) Creatinine For GFR 2.97 mg/dL 0.70-1.30 Above high normal [facility] ([facility]) Potassium Serum 4.4 meq/L 3.5-5.1 Normal (applies to non-numeric results) [facility] ([facility]) Chloride Level 100 meq/L 98-107 Normal (applies to non-numeric r esults) [facility] ([facility]) Anion Gap 5 meq/L 8-16 Below low normal [facility] Calcium Level 8.0 mg/dL 8.8-10.2 Below low normal MEDEN T ([facility]) Carbon Dioxide Level 32 meq/L 21-32 Normal (applies to non-num jerrod results) [facility] ([facility]) Procedure Social History Code Duration Value Status Description Data Source(s ) Smoking 05/31/2021 12:00:00 AM EDT Former Smoker completed Former Smoker eCW1 ([facility]) Smoking 05/31/2021 12:00:00 AM EDT Former Smoker completed Former Smoker eC1 ([facility]) Alcohol intake 01/04/2021 12:00:00 AM EDT Current drinker of al cohol (finding) completed Current drinker of alcohol (finding) [facility] Alcohol intake 11/30/2020 12:00:00 AM EDT Yes completed [facility] Smoking 11/30/2020 12:00:00 AM EDT Former smoker completed Former smoker [facility] Alcohol intake 10/20/2020 12:00:00 AM EST Yes completed [facility] Smoking 10/20/2020 12:00:00 AM EST Former smoker completed Former smoker [facility] Alcohol intake 10/14/2020 12:00:00 AM EST Yes completed [facility] Smoking 10/14/2020 12:00:00 AM EST Former smoker completed Former smoker [facility] Alcohol intake 10/10/2020 12:00:00 AM EST Yes completed [facility] Smoking 10/10/2020 12:00:00 AM EST Former smoker completed Former smoker [facility] Smoking 09/27/2020 12:00:00 AM EST Unknown if ever smoked comp leted Unknown if ever smoked [facility] Alcohol intake 09/01/2020 12:00:00 AM EST Yes completed [facility] Smoking 09/01/2020 12:00:00 AM EST Former smoker completed Former smoker [facility] Tobacco use and exposure 06/07/2020 12:00:00 AM EDT Never used co mpleted Never used [facility] Smoking 06/07/2020 12:00:00 AM EDT Former smoker completed Former smoker [facility] Alcohol intake 06/07/2020 12:00:00 AM EDT Yes completed [facility] Smoking 06/07/2020 12:00:00 AM EDT Former smoker completed Former smoker [facility] Vital Signs ID Date Data Source UNK Name Value Range Interpretation Code Description Data Source(s) Body weight 157 [lb_av] 157 [lb_av] W1 ([facility]) Body height 68 [in_i] 68 [in_i] eCW1 ([facility]) Body mass index (BMI) [Ratio] 23.87 kg/m2 23.87 kg/m2 W1 ([facility]) Heart rate 120 /min 120 /min eCW1 ([facility]) Respiratory rate 18 /min 18 /min W1 ([facility]) Body temperature 96.6 [degF] 96.6 [degF] eCW1 ( [facility]) Systolic blood pressure 136 mm[Hg] 136 mm[Hg] e CW1 ([facility]) Diastolic blood pressure 78 mm[Hg] 78 mm[Hg] eCW1 ([facility]) Body height 68.00 [in_i] 68.00 [in_i] DALTON ([facility]) 5'8" Body weight 157.12 [lb_av] 157.12 [lb_av] MEDEN T ([facility]) Body mass index (BMI) [Ratio] 23.9 kg/m2 23.9 k g/m2 MED[facility] ([facility]) Systolic blood pressure 120 mm[Hg] 120 mm[Hg] M EDENT ([facility]) Diastolic blood pressure 70 mm[Hg] 70 mm[Hg] [facility] ([facility]) Heart rate 60 /min 60 /min [facility] ([facility]) Body temperature 98.6 [degF] 98.6 [degF] [facility] ([facility]) Body temperature 37.0 Kemi 37.0 Kemi MED[facility] ( [facility]) Oxygen saturation in Arterial blood by Pulse oximetry 99 % 99 % [facility] ([facility]) Oxygen saturation in Arterial blood by Pulse oximetry 97 % 97 % [facility] ([facility]) Body temperature 37.0 Kemi 37.0 Kemi MED[facility] ( [facility]) Heart rate 78 /min 78 /min [facility] ([facility]) Body temperature 98.6 [degF] 98.6 [degF] [facility] ([facility]) Body height 68.00 [in_i] 68.00 [in_i] [facility] ([facility] 5'8" Systolic blood pressure 120 mm[Hg] 120 mm[facility] Diastolic blood pressure 78 mm[Hg] 78 mm[Hg] [facility] ([facility]) Systolic blood pressure 130 mm[Hg] 130 mm[Hg] [facility] Diastolic blood pressure 70 mm[Hg] 70 mm[Hg] [facility] Heart rate 61 /min 61 /min [facility] Body height 172.7 cm 172.7 cm [facility] Body weight 68.947 kg 68.947 kg [facility] Body mass index (BMI) [Ratio] 23.11 kg/m2 23.11 kg/m2 [facility] Oxygen saturation in Arterial blood by Pulse oximetry 96 % 96 % [facility] Systolic blood pressure 130 mm[Hg] 130 mm[Hg] [facility] ([facility]) Heart rate 66 /min 66 /min [facility] ([facility]) Body height 68.00 [in_i] 68.00 [in_i] [facility] ([facility] 5'8" Body weight 154.50 [lb_av] 154.50 [lb_av] MEDEN T ([facility]) Body mass index (BMI) [Ratio] 23.5 kg/m2 23.5 k g/m2 MED[facility] ([facility]) Diastolic blood pressure 70 mm[Hg] 70 mm[Hg] [facility] ([facility]) Body temperature 97.8 [degF] 97.8 [degF] [facility] ([facility]) Body temperature 36.6 Kemi 36.6 Kemi MED[facility] ( [facility]) Oxygen saturation in Arterial blood by Pulse oximetry 98 % 98 % [facility] ([facility]) Systolic blood pressure 170 mm[Hg] 170 mm[Hg] [facility] Diastolic blood pressure 70 mm[Hg] 70 mm[Hg] [facility] Heart rate 71 /min 71 /min [facility] Body height 172.7 cm 172.7 cm [facility] Body weight 70.308 kg 70.308 kg [facility] Body mass index (BMI) [Ratio] 23.57 kg/m2 23.57 kg/m2 [facility] Oxygen saturation in Arterial blood by Pulse oximetry 98 % 98 % [facility] Oxygen saturation in Arterial blood by Pulse oximetry 98 % 98 % [facility] Diastolic blood pressure 76 mm[Hg] 76 mm[Hg] [facility] Heart rate 62 /min 62 /min [facility] Systolic blood pressure 124 mm[Hg] 124 mm[Hg] [facility] Body height 172.7 cm 172.7 cm [facility] Body weight 72.122 kg 72.122 kg [facility] Body mass index (BMI) [Ratio] 24.18 kg/m2 24.18 kg/m2 [facility] Systolic blood pressure 122 mm[Hg] 122 mm[Hg] [facility] Diastolic blood pressure 70 mm[Hg] 70 mm[Hg] [facility] Heart rate 60 /min 60 /min [facility] Body height 172.7 cm 172.7 cm [facility] Body weight 71.668 kg 71.668 kg [facility] Body mass index (BMI) [Ratio] 24.02 kg/m2 24.02 kg/m2 [facility] Oxygen saturation in Arterial blood by Pulse oximetry 99 % 99 % [facility] Systolic blood pressure 152 mm[Hg] 152 mm[Hg] [facility] Diastolic blood pressure 70 mm[Hg] 70 mm[Hg] [facility] Heart rate 60 /min 60 /min [facility] Body height 172.7 cm 172.7 cm [facility] Body weight 73.029 kg 73.029 kg [facility] Body mass index (BMI) [Ratio] 24.48 kg/m2 24.48 kg/m2 [facility] Oxygen saturation in Arterial blood by Pulse oximetry 98 % 98 % [facility] Systolic blood pressure 148 mm[Hg] 148 mm[Hg] [facility] Diastolic blood pressure 70 mm[Hg] 70 mm[Hg] [facility] Heart rate 61 /min 61 /min [facility] Body height 172.7 cm 172.7 cm [facility] Body weight 74.844 kg 74.844 kg [facility] Body mass index (BMI) [Ratio] 25.09 kg/m2 25.09 kg/m2 [facility] Oxygen saturation in Arterial blood by Pulse oximetry 98 % 98 % [facility] Systolic blood pressure 162 mm[Hg] 162 mm[Hg] [facility] Diastolic blood pressure 70 mm[Hg] 70 mm[Hg] [facility] Heart rate 80 /min 80 /min [facility] Body height 172.7 cm 172.7 cm [facility] Body weight 72.576 kg 72.576 kg [facility] Body mass index (BMI) [Ratio] 24.33 kg/m2 24.33 kg/m2 [facility] Oxygen saturation in Arterial blood by Pulse oximetry 98 % 98 % [facility] Systolic blood pressure 128 mm[Hg] 128 mm[Hg] [facility] Diastolic blood pressure 88 mm[Hg] 88 mm[Hg] [facility] Heart rate 83 /min 83 /min [facility] Body height 172.7 cm 172.7 cm [facility] Body weight 70.308 kg 70.308 kg [facility] Body mass index (BMI) [Ratio] 23.57 kg/m2 23.57 kg/m2 [facility] Oxygen saturation in Arterial blood by Pulse oximetry 99 % 99 % [facility] Oxygen saturation in Arterial blood by Pulse oximetry 98 % 98 % [facility] ([facility]) Systolic blood pressure 146 mm[Hg] 146 mm[Hg] M EDENT ([facility]) Body weight 179.00 [lb_av] 179.00 [lb_av] MEDEN T ([facility]) Diastolic blood pressure 70 mm[Hg] 70 mm[Hg] [facility] ([facility]) Heart rate 70 /min 70 /min [facility] ([facility]) Body temperature 98.2 [degF] 98.2 [degF] [facility] ([facility]) Body temperature 36.8 Kemi 36.8 Kemi MED[facility] ( [facility]) ID Date Data Source [id number] 10/13/2020 11:11:53 PM EST [facility] Name Value Range Interpretation Code Description Data Source(s) WEIGHT RECORDED 167.77 lb 167.77 lb [facility] WEIGHT RECORDED 168.9 lb 168.9 lb [facility] WEIGHT RECORDED 167.55 lb 167.55 lb [facility] WEIGHT RECORDED 166.89 lb 166.89 lb [facility] Body height Measured 68 in 68 in [facility] TRANSFER FROM [facility] Patient Treatment Plan of Care Planned Activity Planned Date Details Description Data Source (s) Tylenol Extra Strength 500 MG 04/25/2021 01:00:00 AM EDT [facility]) Torsemide 100 MG 04/17/2021 01:00:00 AM EDT [facility] ([facility]) Lokelma 5 GM 04/16/2021 01:00:00 AM [place]) Metoprolol Succinate ER 25 MG 04/16/2021 01:00:00 AM EDT [facility] ([facility]) Calcitriol 0.25 MCG 04/16/2021 01:00:00 AM EDT [facility]) Aspirin 81 81 MG 04/16/2021 01:00:00 AM EDT [facility] ([facility]) raNITIdine HCl 150 MG 04/16/2021 01:00:00 AM EDT [facility] ([facility]) Dificid 200 MG 04/16/2021 01:00:00 AM EDT [facility] ([facility]) Torsemide 100 MG 04/16/2021 01:00:00 AM EDT [facility] ([facility]) torsemide 100 MG Oral Tablet 01/04/2021 12:00:00 AM EDT [facility] 24 HR metoprolol succinate 25 MG Extended Release Oral Tablet 01/04/2021 12:00:00 AM EDT [facility] 24 HR metoprolol succinate 25 MG Extended Release Oral Tablet 11/30/2020 12:00:00 AM EDT [facility] torsemide 100 MG Oral Tablet 11/04/2020 12:00:00 AM EST [facility] Isosorbide Dinitrate 20 MG Oral Tablet 11/04/2020 12:00:00 AM EST [facility] carvedilol 6.25 MG Oral Tablet 11/04/2020 12:00:00 AM EST [facility] Hydralazine Hydrochloride 50 MG Oral Tablet 10/14/2020 12:00:[address] [facility] Acetaminophen 325 MG Oral Tablet 10/07/2020 12:00:[address] [facility] Cephalexin 500 MG Oral Capsule 10/06/2020 12:00:[address] [facility] torsemide 100 MG Oral Tablet 10/06/2020 12:00:[address] [facility] Furosemide 40 MG Oral Tablet 09/28/2020 12:00:00 AM [facility] Isosorbide Dinitrate 20 MG Oral Tablet 09/27/2020 12:00:[address] [facility] carvedilol 6.25 MG Oral Tablet 09/27/2020 12:00:[address] [facility] carvedilol 6.25 MG Oral Tablet 09/27/2020 12:00:[address] [facility] Isosorbide Dinitrate 20 MG Oral Tablet 09/27/2020 12:00:[address] [facility] Hydralazine Hydrochloride 25 MG Oral Tablet 09/27/2020 12:00:[address] [facility] Furosemide 40 MG Oral Tablet 09/27/2020 12:00:00 AM [facility] Isosorbide Dinitrate 20 MG Oral Tablet 09/27/2020 12:00:00 AM [facility] Hydralazine Hydrochloride 25 MG Oral Tablet 09/27/2020 12:00:00 AM [facility] carvedilol 6.25 MG Oral Tablet 09/27/2020 12:00:00 AM [facility] Acetaminophen 325 MG Oral Tablet 09/27/2020 12:00:00 AM [facility] 10 ML Atropine Sulfate 0.1 MG/ML Prefilled Syringe 09/25/2020 01 :45:43 AM [facility] Glucagon 1 MG Injection 09/24/2020 05:54:12 PM [facility] Glucose 0.417 MG/MG Oral Gel 09/24/2020 05:54:12 PM [facility] Furosemide 40 MG Oral Tablet 09/01/2020 12:00:[address] [facility] Hydralazine Hydrochloride 10 MG Oral Tablet 09/01/2020 12:00:00 AM EST [facility] Hydralazine Hydrochloride 10 MG Oral Tablet 08/13/2020 12:00:00 AM EST [facility] Hydralazine Hydrochloride 10 MG Oral Tablet 06/07/2020 12:00:00 AM EDT [facility] Spironolactone 25 MG Oral Tablet 06/02/2020 12:00:00 AM EDT [facility] Furosemide 40 MG Oral Tablet 06/02/2020 12:00:00 AM EDT [facility] Spironolactone 25 MG Oral Tablet [facility] Isosorbide Mononitrate 20 MG Oral Tablet [facility] Isosorbide Dinitrate 20 MG Oral Tablet [facility]
[2021-07-14 20:43] LABS: RSV AMPLIFICATION NEGATIVE (NEGATIVE)
--- NOTE | 2021-07-14 20:55 | REPVR ---
PROCEDURE INFORMATION: Exam: CT Chest Without Contrast; Diagnostic Exam date and time: 07/14/2021 8:05 PM Age: 89 years old Clinical indication: Injury or trauma; Fall; Blunt trauma (contusions or hematomas); Additional info: Fall with anemia, rule out retroperitoneal hematoma TECHNIQUE: Imaging protocol: Diagnostic computed tomography of the chest without contrast. Radiation optimization: All CT scans at this facility use at least one of these dose optimization techniques: automated exposure control; mA and/or kV adjustment per patient size (includes targeted exams where dose is matched to clinical indication); or iterative reconstruction. COMPARISON: 1. CR Abdomen,Flat Upright,PA CHEST 2021-06-07 12:33 2. CR PORTABLE CHEST X-RAY 2021-05-14 11:58 FINDINGS: Limitations: Study is limited by the absence of contrast. Tubes, catheters and devices: AICD/Pacemaker device is present, and its leads are in appropriate position. Lungs: Dependent subsegmental pulmonary atelectasis. Scattered peripheral small micronodular branching and interstitial markings, correlate for infectious, inflammatory causes, could be chronic. Pleural spaces: Unremarkable. No pneumothorax. No pleural effusion. Heart: Mild moderate coronary artery calcifications. Small pericardial effusion. Aorta: Unremarkable. No aortic aneurysm. Lymph nodes: Unremarkable. No enlarged lymph nodes. Bones/joints: Chronic left lateral rib fracture. Soft tissues: Unremarkable. IMPRESSION: 1. Scattered peripheral small micronodular branching and interstitial markings, correlate for infectious, inflammatory causes, could be chronic. 2. No acute traumatic abnormalities. Electronically signed by: Guy Snyder On 07/14/2021 20:55:03 PM
--- NOTE | 2021-07-14 20:59 | REPVR ---
PROCEDURE INFORMATION: Exam: CT Abdomen And Pelvis Without Contrast Exam date and time: 07/14/2021 8:05 PM Age: 89 years old Clinical indication: Injury or trauma; Fall; Blunt; Generalized; Additional info: Fall with anemia, rule out retroperitoneal hematoma TECHNIQUE: Imaging protocol: Computed tomography of the abdomen and pelvis without contrast. Radiation optimization: All CT scans at this facility use at least one of these dose optimization techniques: automated exposure control; mA and/or kV adjustment per patient size (includes targeted exams where dose is matched to clinical indication); or iterative reconstruction. COMPARISON: 1. CT ABD PELVIS W/O CONTRAST 2021-05-11 12:[address] ABD PELVIS W/O CONTRAST 2016-06-27 12:53 FINDINGS: Pleural spaces: Trace right-sided pleural effusion. Heart: Small pericardial effusion. Mild coronary artery calcifications. Liver: Slightly lobulated liver contour, question chronic liver disease. Gallbladder and bile ducts: Normal. No calcified stones. No ductal dilation. Pancreas: Normal. No ductal dilation. Spleen: Normal. No splenomegaly. Adrenal glands: Normal. No mass. Kidneys and ureters: Atrophic kidneys with cortical thinning. Small rim calcification in the right kidney without evidence of obstruction. Stomach and bowel: Hepatic flexure of the colon extends upward anterior to the liver. Abdominal bowel anastomosis. Multiple small bowel loops, some are adhesed to the abdominal wall. Colonic diverticula without acute inflammation. Appendix: No evidence of appendicitis. Intraperitoneal space: Unremarkable. No free air. No significant fluid collection. Vasculature: Unremarkable. No abdominal aortic aneurysm. Lymph nodes: Unremarkable. No enlarged lymph nodes. Urinary bladder: Bladder distension with a left posterolateral bladder diverticulum measuring a cm. Reproductive: Partially undescended testes. Bones/joints: Moderate severe lumbar spinal stenosis. Probable chronic appearing sacral fracture. No displacement. Soft tissues: Unremarkable. IMPRESSION: 1. No acute traumatic abnormalities or retroperitoneal hemorrhage.. 2. Slightly lobulated liver contour, question chronic liver disease. 3. Bladder distension with a left posterolateral bladder diverticulum measuring a cm. 4. Moderate severe lumbar spinal stenosis. 5. Multiple small bowel loops, some are adhesed to the abdominal wall. Colonic diverticula without acute inflammation. Electronically signed by: Guy Snyder On 07/14/2021 20:58:49 PM
[2021-07-14 21:01] LABS: HEMATOCRIT 23.1 % (42.0-52.0); HEMOGLOBIN 7.2 g/dl (13.5-17.5); MEAN CORPUSCULAR HEMOGLOBIN 29.8 pg (27.0-33.0); MEAN CORPUSCULAR HGB CONC 31.2 g/dl (32.0-36.5); MEAN CORPUSCULAR VOLUME 95.5 fl (80.0-96.0); PLATELET COUNT, AUTOMATED 198 10^3/uL (150-450); RED BLOOD COUNT 2.42 10^6/uL (4.30-6.10); WHITE BLOOD COUNT 4.2 10^3/uL (4.0-10.0)
[2021-07-14 22:17] LABS: INR 1.06; PROTHROMBIN TIME 14.3 SECONDS (12.7-14.5)
[2021-07-14 22:18] LABS: PARTIAL THROMBOPLASTIN TIME 33.6 SECONDS (25.9-37.0)
[2021-07-14 22:31] VITALS: BP 185/81
[2021-07-14 22:46] VITALS: BP 166/83
[2021-07-14] MEDS ORDERED: NS IV ONE (23:05)
[2021-07-14] MEDS ORDERED: DESMOPRESSIN ACETATE IV ONE (23:05)
[2021-07-14 23:30] VITALS: BP 151/65
[2021-07-15 00:20] VITALS: BP 136/66
[2021-07-15 01:00] VITALS: BP 116/56
--- NOTE | 2021-07-15 08:11 | ECGEPIP ---
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
== END 2021-07-15 01:05 | disposition short-term general hospital (02) ==
LOC: M ED 15:45
DX: S06.5X9A Traumatic subdural hemorrhage with loss of consciousness of unspecified duration, initial encounter (principal); W18.09XA Striking against other object with subsequent fall, initial encounter; Y92.9 Unspecified place or not applicable; Y93.9 Activity, unspecified; Y99.9 Unspecified external cause status; K92.2 Gastrointestinal hemorrhage, unspecified; D64.9 Anemia, unspecified; N18.4 Chronic kidney disease, stage 4 (severe); Z95.0 Presence of cardiac pacemaker; I50.9 Heart failure, unspecified; I10 Essential (primary) hypertension; N40.0 Benign prostatic hyperplasia without lower urinary tract symptoms; R93.2 Abnormal findings on diagnostic imaging of liver and biliary tract; M48.061 Spinal stenosis, lumbar region without neurogenic claudication; K57.30 Diverticulosis of large intestine without perforation or abscess without bleeding; Z79.82 Long term (current) use of aspirin; Z79.899 Other long term (current) drug therapy; Z88.8 Allergy status to other drugs, medicaments and biological substances
CPT/HCPCS: 36415; 36430; 70450; 71250; 72125; 74176; 80053; 82550; 83605; 83735; 84443; 84484; 85025; 85027; 85610; 85730; 86850; 86900; 86901; 86920; 87040; 87631; 93005; 96374; 99285; J2597; P9016

== ENCOUNTER → 2021-09-01 | Outpatient (REF) | payer MEDICARE, OTHER ==
[2021-09-01 17:57] LABS: FERRITIN 237 NG/ML (26-388); IRON (FE) 66 UG/DL (65-175); MAGNESIUM LEVEL 1.2 MG/DL (1.8-2.4); PERCENT SATURATION 38.4 % (19.7-50.0); TOTAL IRON BINDING CAPACITY 172 UG/DL (250-450)
[2021-09-04 10:41] LABS: HEPATITIS B SURFACE ANTIBODY NEGATIVE (POSITIVE)
[2021-09-04 10:51] LABS: HEPATITIS B SURFACE ANTIGEN NEGATIVE (NEGATIVE)
[2021-09-04 11:18] LABS: HEPATITIS C VIRUS ABY INDEX 0.1 INDEX (<0.8)
[2021-09-04 11:20] LABS: HEPATITIS B CORE ANTIBODY IGM NEGATIVE (NEGATIVE)
== END ==
LOC: M LAB REF 16:50
PROVIDERS: ATTEND Internal Medicine Nephrology
DX: N18.5 Chronic kidney disease, stage 5 (principal); D63.1 Anemia in chronic kidney disease; E83.42 Hypomagnesemia

== ENCOUNTER 2021-09-02 21:30 | Inpatient (IN) | payer MEDICARE, OTHER ==
[~2021-09-02] VITALS: Ht 170.2 cm; Wt 67.7 kg
[2021-09-02] MEDS: PANTOPRAZOLE 40MG VIAL (C9113 PER 1) IV SCH (09:00)
[2021-09-02] MEDS ORDERED: AMIODARONE 150MG/3ML INJ (J0282) As Ordered ONE (21:34)
[2021-09-02] MEDS ORDERED: NS 1,000 ML IV ONE (21:45)
[2021-09-02] MEDS ORDERED: AMIODARONE 150MG/3ML INJ (J0282) IVP STA (21:47)
[2021-09-02 21:55] LABS: ABG BASE EXCESS -21.7 (-2.0-2.0); ABG HCO3 6.9 MEQ/L (22.0-26.0); ABG O2 SATURATION 98.1 % (95.0-99.0); ABG PARTIAL PRESSURE O2 242.3 mmHg (75.0-100.0); ABG STANDARD HCO3 8.2 MEQ/L (22.0-26.0); ABG TOTAL CO2 7.7 MEQ/L (23.0-31.0)
[2021-09-02 21:57] LABS: ABG pH (ARTERIAL) 7.061 UNITS (7.350-7.450)
[2021-09-02 22:04] LABS: BASO % 0.4 % (0.0-1.0); EOS % 0.8 % (0.0-3.0); HEMATOCRIT 28.3 % (42.0-52.0); LYMPH # 0.6 10^3/uL (1.5-5.0); LYMPH % 24.9 % (24.0-44.0); MEAN CORPUSCULAR HEMOGLOBIN 29.3 pg (27.0-33.0); MEAN CORPUSCULAR HGB CONC 31.8 g/dl (32.0-36.5); MEAN CORPUSCULAR VOLUME 92.2 fl (80.0-96.0); MONO # 0.1 10^3/uL (0.0-0.8); NEUTROPHILS # 1.7 10^3/uL (1.5-8.5); NEUTROPHILS % 67.2 % (36.0-66.0); PLATELET COUNT, AUTOMATED 192 10^3/uL (150-450); RED BLOOD COUNT 3.07 10^6/uL (4.30-6.10); WHITE BLOOD COUNT 2.5 10^3/uL (4.0-10.0)
[2021-09-02 22:34] LABS: AMPHETAMINES LEVEL URINE NEGATIVE (NEGATIVE); BARBITURATES URINE NEGATIVE (NEGATIVE); BENZODIAZEPINES URINE NEGATIVE (NEGATIVE); CANNABINOIDS URINE NEGATIVE (NEGATIVE); COCAINE METABOLITE URINE NEGATIVE (NEGATIVE); METHADONE URINE NEGATIVE (NEGATIVE); OPIATES URINE NEGATIVE (NEGATIVE); PHENCYCLIDINE URINE NEGATIVE (NEGATIVE)
[2021-09-02 22:39] LABS: MB/CK RELATIVE INDEX 4.61 (< OR =4); RSV AMPLIFICATION NEGATIVE (NEGATIVE)
[2021-09-02 22:40] LABS: OSMOLALITY SERUM 336 MOSM/KG (280-301)
[2021-09-02] MEDS ORDERED: NS 500 ML IV ONE (22:40)
[2021-09-02] MEDS ORDERED: TORS100T PO (22:47)
[2021-09-02] MEDS ORDERED: FINA5TAB2 PO (22:53)
[2021-09-02] MEDS ORDERED: FLOM0.4C39 PO (22:53)
[2021-09-02] MEDS ORDERED: SODIUM BICARBONATE 150 MEQ in D5W 1,000 ML IV SCH (22:55)
[2021-09-02] MEDS: SODIUM BICARBONATE 150 MEQ in D5W 1,000 ML IV SCH (23:00)
[2021-09-02] MEDS ORDERED: HOME MED LIST COMPLETE! XX SCH (23:00)
[2021-09-02 23:07] LABS: ACETAMINOPHEN LEVEL < 2.0 UG/ML (10.0-30.0); ALBUMIN 2.4 GM/DL (3.2-5.2); ALT/SGPT 36 U/L (12-78); BILIRUBIN,DIRECT 0.2 MG/DL (0.0-0.2); BILIRUBIN,TOTAL 0.3 MG/DL (0.2-1.0); BLOOD UREA NITROGEN 139 MG/DL (7-18); CALCIUM LEVEL 7.4 MG/DL (8.8-10.2); CARBON DIOXIDE LEVEL 13 MEQ/L (21-32); CHLORIDE LEVEL 111 MEQ/L (98-107); CREATININE FOR GFR 7.87 MG/DL (0.70-1.30); ETHYL ALCOHOL (ETHANOL) < 0.003 % (0.000-0.010); GLOMERULAR FILTRATION RATE 6.9 (>35); GLUCOSE, FASTING 162 MG/DL (70-100); POTASSIUM SERUM 5.8 MEQ/L (3.5-5.1); SALICYLATE LEVEL < 1.7 MG/DL (5.0-30.0); SODIUM LEVEL 137 MEQ/L (136-145)
[2021-09-02] MEDS ORDERED: CALCIUM GLUCONATE 1,000 MG in D5W MINI-BAG PLUS 100 ML IV ONE (23:20)
[2021-09-02 23:34] LABS: ABG BASE EXCESS -14.2 (-2.0-2.0); ABG HCO3 11.7 MEQ/L (22.0-26.0); ABG O2 SATURATION 98.2 % (95.0-99.0); ABG PARTIAL PRESSURE CO2 27.7 mmHg (35.0-45.0); ABG PARTIAL PRESSURE O2 312.5 mmHg (75.0-100.0); ABG STANDARD HCO3 13.2 MEQ/L (22.0-26.0); ABG TOTAL CO2 12.6 MEQ/L (23.0-31.0); ABG pH (ARTERIAL) 7.245 UNITS (7.350-7.450)
[2021-09-02] MEDS ORDERED: LACRILUBE (AKWA TEARS) OPHTH OINT 3.5 GM OU PRN (23:40)
[2021-09-02] MEDS ORDERED: ACETAMINOPHEN 650 MG SUPP PR PRN (23:40)
[2021-09-02] MEDS ORDERED: HumuLIN R (REGULAR) INSULIN (NovoLIN R) **100U/ML** PER UNIT IV STA (23:43)
[2021-09-02] MEDS ORDERED: DEXTROSE 50% 50 ML SYRINGE IV STA (23:43)
[2021-09-02] MEDS ORDERED: GLUCAGON INJ 1MG VIAL SC PRN (23:45)
[2021-09-02] MEDS ORDERED: GLUCOSE 4GM CHEW TABLET PO PRN (23:45)
[2021-09-03] VITALS (92 sets, daily range): BP systolic 90–171; BP diastolic 44–118; O2SAT 98
[2021-09-03] MEDS: MIDAZOLAM INJ 2MG/2ML VIAL (J2250 PER 1MG) IV PRN ×2 (00:05→04:37)
[2021-09-03 00:49] LABS: INR 1.19; PROTHROMBIN TIME 15.6 SECONDS (12.7-14.5)
[2021-09-03 00:50] LABS: PARTIAL THROMBOPLASTIN TIME 36.7 SECONDS (25.9-37.0)
[2021-09-03] MEDS ORDERED: NS 500 ML IV ONE ×2 (01:45→17:30)
[2021-09-03 03:07] LABS: HEMATOCRIT 23.1 % (42.0-52.0); HEMOGLOBIN 7.6 g/dl (13.5-17.5); LYMPH # 0.1 10^3/uL (1.5-5.0); LYMPH % 7.3 % (24.0-44.0); MEAN CORPUSCULAR HEMOGLOBIN 29.5 pg (27.0-33.0); MEAN CORPUSCULAR HGB CONC 32.9 g/dl (32.0-36.5); MEAN CORPUSCULAR VOLUME 89.5 fl (80.0-96.0); MONO % 1.8 % (2.0-8.0); NEUTROPHILS # 1.5 10^3/uL (1.5-8.5); NEUTROPHILS % 89.7 % (36.0-66.0); PLATELET COUNT, AUTOMATED 141 10^3/uL (150-450); RED BLOOD COUNT 2.58 10^6/uL (4.30-6.10); WHITE BLOOD COUNT 1.6 10^3/uL (4.0-10.0)
[2021-09-03] MEDS: propofoL 1,000 MG in IV 1 EA IV SCH ×3 (03:12→23:31)
[2021-09-03 03:18] LABS: INR 1.22; PROTHROMBIN TIME 15.8 SECONDS (12.7-14.5)
[2021-09-03 03:20] LABS: PARTIAL THROMBOPLASTIN TIME 53.3 SECONDS (25.9-37.0)
[2021-09-03 03:24] LABS: BILIRUBIN,TOTAL 0.2 MG/DL (0.2-1.0); CALCIUM LEVEL 7.6 MG/DL (8.8-10.2); CREATININE FOR GFR 7.25 MG/DL (0.70-1.30); GLOMERULAR FILTRATION RATE 7.6 (>35); MAGNESIUM LEVEL 1.1 MG/DL (1.8-2.4); MB/CK RELATIVE INDEX 2.68 (< OR =4); PHOSPHORUS LEVEL 4.1 MG/DL (2.5-4.9); POTASSIUM SERUM 4.4 MEQ/L (3.5-5.1); TOTAL PROTEIN 4.7 GM/DL (6.4-8.2)
[2021-09-03] MEDS: HumaLOG INSULIN (NovoLOG) PER UNIT SC SCH ×6 (03:27→21:00)
[2021-09-03 03:45] LABS: D-DIMER QUANT > 4000 ng/ml (<500)
[2021-09-03] MEDS: NOREPINEPHRINE BITARTRATE 16 MG in D5W 484 ML IV SCH (04:10)
[2021-09-03 06:15] LABS: ABG BASE EXCESS -8.9 (-2.0-2.0); ABG HCO3 13.5 MEQ/L (22.0-26.0); ABG O2 SATURATION 97.8 % (95.0-99.0); ABG PARTIAL PRESSURE CO2 19.6 mmHg (35.0-45.0); ABG PARTIAL PRESSURE O2 300.3 mmHg (75.0-100.0); ABG STANDARD HCO3 17.2 MEQ/L (22.0-26.0); ABG TOTAL CO2 14.1 MEQ/L (23.0-31.0); ABG pH (ARTERIAL) 7.457 UNITS (7.350-7.450)
[2021-09-03 06:17] LABS: HEMATOCRIT 24.5 % (42.0-52.0); HEMOGLOBIN 8.5 g/dl (13.5-17.5); MEAN CORPUSCULAR HEMOGLOBIN 29.6 pg (27.0-33.0); MEAN CORPUSCULAR HGB CONC 34.7 g/dl (32.0-36.5); MEAN CORPUSCULAR VOLUME 85.4 fl (80.0-96.0); PLATELET COUNT, AUTOMATED 183 10^3/uL (150-450); RED BLOOD COUNT 2.87 10^6/uL (4.30-6.10); WHITE BLOOD COUNT 3.7 10^3/uL (4.0-10.0)
[2021-09-03 06:29] LABS: INR 1.18; PROTHROMBIN TIME 15.4 SECONDS (12.7-14.5)
[2021-09-03 06:30] LABS: PARTIAL THROMBOPLASTIN TIME 36.7 SECONDS (25.9-37.0)
[2021-09-03 06:48] LABS: BILIRUBIN,TOTAL 0.3 MG/DL (0.2-1.0); CALCIUM LEVEL 7.5 MG/DL (8.8-10.2); CREATININE FOR GFR 7.29 MG/DL (0.70-1.30); GLOMERULAR FILTRATION RATE 7.6 (>35); PHOSPHORUS LEVEL 3.4 MG/DL (2.5-4.9); POTASSIUM SERUM 4.4 MEQ/L (3.5-5.1)
[2021-09-03 06:49] LABS: BASOPHILS 1 % (0-1); LYMPHOCYTES 2 % (16-44); METAMYELOCYTES 3 % (0-0); MONOCYTES 3 % (0-5); NEUTROPHILS 76 % (28-66)
[2021-09-03 06:51] LABS: PLATELET CLUMPS SMALL AMT; PLATELET ESTIMATE NORMAL (NORMAL)
[2021-09-03 06:52] LABS: SCHISTOCYTES 2+
[2021-09-03 06:53] LABS: OVALOCYTES 1+
[2021-09-03] MEDS: SODIUM BICARBONATE 150 MEQ in D5W 1,000 ML IV SCH (07:47)
[2021-09-03] MEDS: CHLORHEXIDINE GLUCONATE 0.12 % 15ML UDC (PERIDEX ORAL RINSE) MT SCH ×2 (07:50→22:00)
[2021-09-03] MEDS: HEPARIN SOD (PORCINE) 5000UNITS/ML 1ML VIAL/SYRINGE SC SCH ×2 (07:50→22:01)
[2021-09-03] MEDS: LACRILUBE (AKWA TEARS) OPHTH OINT 3.5 GM OU SCH ×3 (09:22→22:34)
[2021-09-03] MEDS: PANTOPRAZOLE 40MG VIAL (C9113 PER 1) IV SCH (09:22)
[2021-09-03 10:24] LABS: ABG BASE EXCESS -5.9 (-2.0-2.0); ABG HCO3 16.2 MEQ/L (22.0-26.0); ABG O2 SATURATION 97.8 % (95.0-99.0); ABG PARTIAL PRESSURE CO2 21.6 mmHg (35.0-45.0); ABG PARTIAL PRESSURE O2 194.2 mmHg (75.0-100.0); ABG STANDARD HCO3 19.5 MEQ/L (22.0-26.0); ABG TOTAL CO2 16.9 MEQ/L (23.0-31.0); ABG pH (ARTERIAL) 7.493 UNITS (7.350-7.450)
[2021-09-03 10:29] LABS: HEMATOCRIT 23.6 % (42.0-52.0); HEMOGLOBIN 8.2 g/dl (13.5-17.5); MEAN CORPUSCULAR HEMOGLOBIN 29.4 pg (27.0-33.0); MEAN CORPUSCULAR HGB CONC 34.7 g/dl (32.0-36.5); MEAN CORPUSCULAR VOLUME 84.6 fl (80.0-96.0); PLATELET COUNT, AUTOMATED 181 10^3/uL (150-450); RED BLOOD COUNT 2.79 10^6/uL (4.30-6.10); WHITE BLOOD COUNT 3.1 10^3/uL (4.0-10.0)
[2021-09-03] MEDS ORDERED: SODIUM CHLORIDE 0.9% INJ 10 ML SYR IV PRN (10:35)
[2021-09-03 10:40] LABS: INR 1.2; PROTHROMBIN TIME 15.6 SECONDS (12.7-14.5)
[2021-09-03 10:41] LABS: PARTIAL THROMBOPLASTIN TIME 45.8 SECONDS (25.9-37.0)
[2021-09-03 10:52] LABS: ALBUMIN 1.8 GM/DL (3.2-5.2); BILIRUBIN,TOTAL 0.2 MG/DL (0.2-1.0); CALCIUM LEVEL 7.2 MG/DL (8.8-10.2); CREATININE FOR GFR 7.26 MG/DL (0.70-1.30); GLOMERULAR FILTRATION RATE 7.6 (>35); MAGNESIUM LEVEL 1.1 MG/DL (1.8-2.4); PHOSPHORUS LEVEL 2.7 MG/DL (2.5-4.9); POTASSIUM SERUM 4.1 MEQ/L (3.5-5.1); TOTAL PROTEIN 4.7 GM/DL (6.4-8.2)
[2021-09-03] MEDS ORDERED: MAG SULF 1GM/100ML (MAG RUN) 1 GM in IV 1 EA IV ONE (12:00)
[2021-09-03] MEDS: VASOPRESSIN INJ 40 UNITS in NS 499 ML IV SCH (13:36)
[2021-09-03 14:46] LABS: ABG BASE EXCESS -5.2 (-2.0-2.0); ABG HCO3 17.9 MEQ/L (22.0-26.0); ABG O2 SATURATION 97.4 % (95.0-99.0); ABG PARTIAL PRESSURE CO2 26.2 mmHg (35.0-45.0); ABG PARTIAL PRESSURE O2 203.8 mmHg (75.0-100.0); ABG STANDARD HCO3 20.2 MEQ/L (22.0-26.0); ABG TOTAL CO2 18.7 MEQ/L (23.0-31.0); ABG pH (ARTERIAL) 7.452 UNITS (7.350-7.450)
[2021-09-03 15:00] LABS: HEMATOCRIT 24.8 % (42.0-52.0); HEMOGLOBIN 8.6 g/dl (13.5-17.5); MEAN CORPUSCULAR HEMOGLOBIN 29.4 pg (27.0-33.0); MEAN CORPUSCULAR HGB CONC 34.7 g/dl (32.0-36.5); MEAN CORPUSCULAR VOLUME 84.6 fl (80.0-96.0); PLATELET COUNT, AUTOMATED 179 10^3/uL (150-450); RED BLOOD COUNT 2.93 10^6/uL (4.30-6.10); WHITE BLOOD COUNT 3.1 10^3/uL (4.0-10.0)
[2021-09-03 15:15] LABS: INR 1.16; PROTHROMBIN TIME 15.2 SECONDS (12.7-14.5)
[2021-09-03 15:37] LABS: ALBUMIN 1.8 GM/DL (3.2-5.2); BILIRUBIN,TOTAL 0.3 MG/DL (0.2-1.0); CALCIUM LEVEL 6.9 MG/DL (8.8-10.2); CREATININE FOR GFR 5.72 MG/DL (0.70-1.30); MAGNESIUM LEVEL 1.5 MG/DL (1.8-2.4); PHOSPHORUS LEVEL 2.5 MG/DL (2.5-4.9); TOTAL PROTEIN 5.2 GM/DL (6.4-8.2)
[2021-09-03] MEDS: DEXTROSE 50% 50 ML SYRINGE IV PRN (17:45)
[2021-09-03 18:11] LABS: ABG HCO3 18.1 MEQ/L (22.0-26.0); ABG O2 SATURATION 97.9 % (95.0-99.0); ABG PARTIAL PRESSURE O2 218.3 mmHg (75.0-100.0); ABG STANDARD HCO3 20.3 MEQ/L (22.0-26.0); ABG TOTAL CO2 18.9 MEQ/L (23.0-31.0); ABG pH (ARTERIAL) 7.461 UNITS (7.350-7.450)
[2021-09-03 18:28] LABS: HEMOGLOBIN 7.1 g/dl (13.5-17.5); MEAN CORPUSCULAR HGB CONC 34.1 g/dl (32.0-36.5); MEAN CORPUSCULAR VOLUME 84.9 fl (80.0-96.0); PLATELET COUNT, AUTOMATED 110 10^3/uL (150-450); RED BLOOD COUNT 2.45 10^6/uL (4.30-6.10); WHITE BLOOD COUNT 4.5 10^3/uL (4.0-10.0)
[2021-09-03 18:35] LABS: HEMATOCRIT 20.8 % (42.0-52.0)
[2021-09-03 18:44] LABS: INR 1.32; PROTHROMBIN TIME 16.9 SECONDS (12.7-14.5)
[2021-09-03 18:45] LABS: PARTIAL THROMBOPLASTIN TIME 46.2 SECONDS (25.9-37.0)
[2021-09-03 18:47] LABS: ALBUMIN 1.1 GM/DL (3.2-5.2); ALT/SGPT 19 U/L (12-78); BEDSIDE GLUCOSE CONFIRMATION 196 MG/DL (LESS THAN 200); BILIRUBIN,TOTAL 0.2 MG/DL (0.2-1.0); BLOOD UREA NITROGEN 70 MG/DL (7-18); CARBON DIOXIDE LEVEL 15 MEQ/L (21-32); CHLORIDE LEVEL 121 MEQ/L (98-107); CREATININE FOR GFR 3.43 MG/DL (0.70-1.30); GLOMERULAR FILTRATION RATE 18.1 (>35); GLUCOSE, FASTING 196 MG/DL (70-100); PHOSPHORUS LEVEL 1.8 MG/DL (2.5-4.9); SODIUM LEVEL 145 MEQ/L (136-145)
[2021-09-03 19:01] LABS: CALCIUM LEVEL < 5.0 MG/DL (8.8-10.2)
[2021-09-03] MEDS ORDERED: POTASSIUM CHLORIDE 10% LIQ 20 MEQ/15 ML UDC PO ONE (19:20)
[2021-09-03] MEDS ORDERED: NS 1,000 ML IV ONE (19:55)
[2021-09-03] MEDS: MAG SULF 1GM/100ML (MAG RUN) 1 GM in IV 1 EA IV SCH ×2 (20:16→20:55)
[2021-09-03] MEDS: CALCIUM GLUCONATE 1,000 MG, VIAL MATE ADAPTER 1 EACH in NS 100 ML IV SCH ×2 (20:19→21:28)
[2021-09-03] MEDS: KCL 10MEQ/100ML SWI (KRUN) 10 MEQ in IV 1 EA IV SCH ×3 (20:45→23:30)
[2021-09-03] MEDS ORDERED: POTASSIUM PHOSPHATE INJ 30 MMOL in D5W 250 ML IV ONE (21:00)
[2021-09-03] MEDS: PIPERACILLIN/TAZOBACTAM SOD 4.5 GM in D5W MINI-BAG PLUS 50 ML IV SCH (22:34)
[2021-09-04] VITALS (91 sets, daily range): BP systolic 86–165; BP diastolic 42–94
[2021-09-04 00:08] LABS: ABG BASE EXCESS -5.1 (-2.0-2.0); ABG HCO3 17.5 MEQ/L (22.0-26.0); ABG O2 SATURATION 97.6 % (95.0-99.0); ABG PARTIAL PRESSURE CO2 23.8 mmHg (35.0-45.0); ABG PARTIAL PRESSURE O2 192.8 mmHg (75.0-100.0); ABG STANDARD HCO3 20.2 MEQ/L (22.0-26.0); ABG TOTAL CO2 18.3 MEQ/L (23.0-31.0); ABG pH (ARTERIAL) 7.485 UNITS (7.350-7.450)
[2021-09-04 00:31] LABS: HEMOGLOBIN 7.1 g/dl (13.5-17.5); MEAN CORPUSCULAR HEMOGLOBIN 29.8 pg (27.0-33.0); MEAN CORPUSCULAR HGB CONC 35.5 g/dl (32.0-36.5); RED BLOOD COUNT 2.38 10^6/uL (4.30-6.10); WHITE BLOOD COUNT 3.4 10^3/uL (4.0-10.0)
[2021-09-04 00:34] LABS: INR 1.31; PROTHROMBIN TIME 16.7 SECONDS (12.7-14.5)
[2021-09-04 00:35] LABS: PARTIAL THROMBOPLASTIN TIME 55.5 SECONDS (25.9-37.0)
[2021-09-04 00:41] LABS: ALBUMIN 1.6 GM/DL (3.2-5.2); BILIRUBIN,TOTAL 0.2 MG/DL (0.2-1.0); CALCIUM LEVEL 6.7 MG/DL (8.8-10.2); CREATININE FOR GFR 3.5 MG/DL (0.70-1.30); GLOMERULAR FILTRATION RATE 17.7 (>35); MAGNESIUM LEVEL 2.3 MG/DL (1.8-2.4); PHOSPHORUS LEVEL 3.4 MG/DL (2.5-4.9); POTASSIUM SERUM 5.8 MEQ/L (3.5-5.1); TOTAL PROTEIN 4.3 GM/DL (6.4-8.2)
[2021-09-04] MEDS: HumaLOG INSULIN (NovoLOG) PER UNIT SC SCH ×6 (01:00→21:00)
[2021-09-04 01:08] LABS: PLATELET COUNT, AUTOMATED 78 10^3/uL (150-450)
[2021-09-04] MEDS ORDERED: DEXTROSE 50% 50 ML SYRINGE IV STA ×2 (01:36→09:06)
[2021-09-04] MEDS ORDERED: HumuLIN R (REGULAR) INSULIN (NovoLIN R) **100U/ML** PER UNIT IV STA (01:36)
[2021-09-04] MEDS ORDERED: CALCIUM GLUCONATE 1,000 MG in NS MINI-BAG PLUS 100 ML IV ONE (01:40)
[2021-09-04] MEDS: NOREPINEPHRINE BITARTRATE 16 MG in D5W 484 ML IV SCH ×2 (02:00→10:33)
[2021-09-04 03:02] LABS: ALBUMIN 1.5 GM/DL (3.2-5.2); BILIRUBIN,TOTAL 0.3 MG/DL (0.2-1.0); CALCIUM LEVEL 6.6 MG/DL (8.8-10.2); CREATININE FOR GFR 3.15 MG/DL (0.70-1.30); POTASSIUM SERUM 5.1 MEQ/L (3.5-5.1); TOTAL PROTEIN 3.8 GM/DL (6.4-8.2)
[2021-09-04] MEDS: VASOPRESSIN INJ 40 UNITS in NS 499 ML IV SCH (04:19)
[2021-09-04 05:20] LABS: ABG BASE EXCESS -4.6 (-2.0-2.0); ABG HCO3 18.1 MEQ/L (22.0-26.0); ABG O2 SATURATION 97.6 % (95.0-99.0); ABG PARTIAL PRESSURE CO2 24.8 mmHg (35.0-45.0); ABG PARTIAL PRESSURE O2 161.1 mmHg (75.0-100.0); ABG STANDARD HCO3 20.6 MEQ/L (22.0-26.0); ABG TOTAL CO2 18.9 MEQ/L (23.0-31.0); ABG pH (ARTERIAL) 7.481 UNITS (7.350-7.450)
[2021-09-04 05:27] LABS: HEMATOCRIT 21.4 % (42.0-52.0); HEMOGLOBIN 7.4 g/dl (13.5-17.5); MEAN CORPUSCULAR HGB CONC 34.6 g/dl (32.0-36.5); MEAN CORPUSCULAR VOLUME 83.9 fl (80.0-96.0); RED BLOOD COUNT 2.55 10^6/uL (4.30-6.10); WHITE BLOOD COUNT 3.4 10^3/uL (4.0-10.0)
[2021-09-04 05:28] LABS: PLATELET COUNT, AUTOMATED 76 10^3/uL (150-450)
[2021-09-04] MEDS: PIPERACILLIN/TAZOBACTAM SOD 4.5 GM in D5W MINI-BAG PLUS 50 ML IV SCH ×3 (05:34→20:50)
[2021-09-04 05:36] LABS: INR 1.31; PROTHROMBIN TIME 16.7 SECONDS (12.7-14.5)
[2021-09-04 05:37] LABS: PARTIAL THROMBOPLASTIN TIME 54.6 SECONDS (25.9-37.0)
[2021-09-04 05:57] LABS: ALBUMIN 1.7 GM/DL (3.2-5.2); BILIRUBIN,TOTAL 0.3 MG/DL (0.2-1.0); CALCIUM LEVEL 7.3 MG/DL (8.8-10.2); CREATININE FOR GFR 2.93 MG/DL (0.70-1.30); GLOMERULAR FILTRATION RATE 21.7 (>35); MAGNESIUM LEVEL 2.2 MG/DL (1.8-2.4); PHOSPHORUS LEVEL 2.6 MG/DL (2.5-4.9); POTASSIUM SERUM 4.7 MEQ/L (3.5-5.1); TOTAL PROTEIN 4.2 GM/DL (6.4-8.2)
[2021-09-04 06:16] LABS: LYMPHOCYTES 4 % (16-44); METAMYELOCYTES 1 % (0-0); MONOCYTES 1 % (0-5); NEUTROPHILS 77 % (28-66)
[2021-09-04 06:17] LABS: ANISOCYTOSIS 2+; PLATELET ESTIMATE DECREASED (NORMAL); SCHISTOCYTES 2+
[2021-09-04] MEDS: CALCIUM GLUCONATE 1,000 MG in NS MINI-BAG PLUS 100 ML IV SCH ×2 (06:51→08:23)
[2021-09-04] MEDS: propofoL 1,000 MG in IV 1 EA IV SCH ×2 (08:00→15:35)
[2021-09-04] MEDS: DEXTROSE 50% 50 ML SYRINGE IV PRN ×2 (08:22→09:08)
[2021-09-04] MEDS: PANTOPRAZOLE 40MG VIAL (C9113 PER 1) IV SCH (08:26)
[2021-09-04] MEDS: CHLORHEXIDINE GLUCONATE 0.12 % 15ML UDC (PERIDEX ORAL RINSE) MT SCH ×2 (08:26→20:24)
[2021-09-04] MEDS: HEPARIN SOD (PORCINE) 5000UNITS/ML 1ML VIAL/SYRINGE SC SCH ×2 (08:27→20:25)
[2021-09-04] MEDS: LACRILUBE (AKWA TEARS) OPHTH OINT 3.5 GM OU SCH ×3 (08:27→20:25)
[2021-09-04 09:59] LABS: ABG BASE EXCESS -1.3 (-2.0-2.0); ABG HCO3 21.3 MEQ/L (22.0-26.0); ABG O2 SATURATION 97.8 % (95.0-99.0); ABG PARTIAL PRESSURE CO2 26.5 mmHg (35.0-45.0); ABG PARTIAL PRESSURE O2 192.7 mmHg (75.0-100.0); ABG STANDARD HCO3 23.4 MEQ/L (22.0-26.0); ABG TOTAL CO2 22.1 MEQ/L (23.0-31.0); ABG pH (ARTERIAL) 7.522 UNITS (7.350-7.450)
[2021-09-04 10:08] LABS: MEAN CORPUSCULAR HEMOGLOBIN 28.8 pg (27.0-33.0); MEAN CORPUSCULAR HGB CONC 34.6 g/dl (32.0-36.5); MEAN CORPUSCULAR VOLUME 83.1 fl (80.0-96.0); RED BLOOD COUNT 2.19 10^6/uL (4.30-6.10)
[2021-09-04 10:11] LABS: HEMATOCRIT 18.2 % (42.0-52.0); PLATELET COUNT, AUTOMATED 61 10^3/uL (150-450)
[2021-09-04 10:17] LABS: HEMOGLOBIN 6.3 g/dl (13.5-17.5)
[2021-09-04 10:18] LABS: INR 1.44
[2021-09-04 10:19] LABS: PARTIAL THROMBOPLASTIN TIME 55.7 SECONDS (25.9-37.0)
[2021-09-04 10:40] LABS: ALBUMIN 1.5 GM/DL (3.2-5.2); BILIRUBIN,TOTAL 0.3 MG/DL (0.2-1.0); CALCIUM LEVEL 7.9 MG/DL (8.8-10.2); CREATININE FOR GFR 2.64 MG/DL (0.70-1.30); GLOMERULAR FILTRATION RATE 24.5 (>35); PHOSPHORUS LEVEL 2.6 MG/DL (2.5-4.9); POTASSIUM SERUM 4.6 MEQ/L (3.5-5.1); TOTAL PROTEIN 3.5 GM/DL (6.4-8.2)
[2021-09-04 10:41] LABS: MAGNESIUM LEVEL 1.9 MG/DL (1.8-2.4)
[2021-09-04] MEDS ORDERED: CALCIUM GLUCONATE 1,000 MG in NS 100 ML IV ONE (10:55)
[2021-09-04] MEDS ORDERED: MAG SULF 1GM/100ML (MAG RUN) 1 GM in IV 1 EA IV ONE (12:00)
[2021-09-04] MEDS: MIDAZOLAM INJ 2MG/2ML VIAL (J2250 PER 1MG) IV PRN (12:24)
[2021-09-04 18:00] LABS: HEMATOCRIT 29.5 % (42.0-52.0); HEMOGLOBIN 10.3 g/dl (13.5-17.5); MEAN CORPUSCULAR HEMOGLOBIN 29.2 pg (27.0-33.0); MEAN CORPUSCULAR HGB CONC 34.9 g/dl (32.0-36.5); MEAN CORPUSCULAR VOLUME 83.6 fl (80.0-96.0); RED BLOOD COUNT 3.53 10^6/uL (4.30-6.10); WHITE BLOOD COUNT 4.9 10^3/uL (4.0-10.0)
[2021-09-04 18:03] LABS: PLATELET COUNT, AUTOMATED 66 10^3/uL (150-450)
[2021-09-04 22:09] LABS: HEMOGLOBIN 10.9 g/dl (13.5-17.5); MEAN CORPUSCULAR HEMOGLOBIN 29.2 pg (27.0-33.0); MEAN CORPUSCULAR HGB CONC 35.2 g/dl (32.0-36.5); MEAN CORPUSCULAR VOLUME 83.1 fl (80.0-96.0); RED BLOOD COUNT 3.73 10^6/uL (4.30-6.10); WHITE BLOOD COUNT 4.2 10^3/uL (4.0-10.0)
[2021-09-04 22:14] LABS: PLATELET COUNT, AUTOMATED 64 10^3/uL (150-450)
[2021-09-04] MEDS ORDERED: CALCIUM GLUCONATE 1,000 MG in D5W MINI-BAG PLUS 100 ML IV ONE (22:15)
[2021-09-04 22:41] LABS: ALBUMIN 1.6 GM/DL (3.2-5.2); BILIRUBIN,TOTAL 0.8 MG/DL (0.2-1.0); CALCIUM LEVEL 8.2 MG/DL (8.8-10.2); CREATININE FOR GFR 1.98 MG/DL (0.70-1.30); GLOMERULAR FILTRATION RATE 34.1 (>35); POTASSIUM SERUM 4.5 MEQ/L (3.5-5.1); TOTAL PROTEIN 4.6 GM/DL (6.4-8.2)
[2021-09-05] VITALS (47 sets, daily range): BP systolic 71–162; BP diastolic 44–98
[2021-09-05 00:14] LABS: MAGNESIUM LEVEL 1.9 MG/DL (1.8-2.4); PHOSPHORUS LEVEL 2.6 MG/DL (2.5-4.9)
[2021-09-05] MEDS: HumaLOG INSULIN (NovoLOG) PER UNIT SC SCH ×3 (01:00→08:23)
[2021-09-05] MEDS: VASOPRESSIN INJ 40 UNITS in NS 499 ML IV SCH (01:51)
[2021-09-05] MEDS: NOREPINEPHRINE BITARTRATE 16 MG in D5W 484 ML IV SCH ×3 (02:00→09:18)
[2021-09-05] MEDS ORDERED: DEXTROSE 50% 50 ML SYRINGE IV STA (03:55)
[2021-09-05] MEDS: PIPERACILLIN/TAZOBACTAM SOD 4.5 GM in D5W MINI-BAG PLUS 50 ML IV SCH (04:56)
[2021-09-05 06:34] LABS: ABG BASE EXCESS -8.6 (-2.0-2.0); ABG HCO3 14.3 MEQ/L (22.0-26.0); ABG O2 SATURATION 98.2 % (95.0-99.0); ABG PARTIAL PRESSURE CO2 23.3 mmHg (35.0-45.0); ABG PARTIAL PRESSURE O2 268.8 mmHg (75.0-100.0); ABG STANDARD HCO3 17.5 MEQ/L (22.0-26.0); ABG TOTAL CO2 15.1 MEQ/L (23.0-31.0); ABG pH (ARTERIAL) 7.407 UNITS (7.350-7.450)
[2021-09-05] MEDS: PANTOPRAZOLE 40MG VIAL (C9113 PER 1) IV SCH (08:22)
[2021-09-05] MEDS: CHLORHEXIDINE GLUCONATE 0.12 % 15ML UDC (PERIDEX ORAL RINSE) MT SCH (08:22)
[2021-09-05] MEDS: HEPARIN SOD (PORCINE) 5000UNITS/ML 1ML VIAL/SYRINGE SC SCH (08:22)
[2021-09-05] MEDS: LACRILUBE (AKWA TEARS) OPHTH OINT 3.5 GM OU SCH (08:23)
[2021-09-05] MEDS: DEXTROSE 50% 50 ML SYRINGE IV PRN ×3 (10:27→11:10)
[2021-09-05] MEDS: MIDAZOLAM INJ 2MG/2ML VIAL (J2250 PER 1MG) IV PRN (11:40)
[2021-09-05] MEDS ORDERED: LORazepam 2 MG/ML VIAL IV PRN (11:45)
[2021-09-05] MEDS ORDERED: MORPHINE 2 MG/ML 1ML VIAL (J2270) IV PRN (11:45)
[2021-09-05] MEDS ORDERED: MORPHINE 2 MG/ML 1ML VIAL (J2270) As Ordered ONE (11:49)
== END 2021-09-05 12:18 | disposition expired | DRG 871 ==
LOC: M ED 21:30 → M ED INP 23:30 → M PCU 09-03 01:01
PROVIDERS: ADMIT Internal Medicine Pulmonary Disease; ATTEND Internal Medicine Pulmonary Disease
PROC: 5A1945Z Respiratory Ventilation, 24-96 Consecutive Hours (ICD-10-PCS; 2021-09-02)
PROC: 06HM33Z Insertion of Infusion Device into Right Femoral Vein, Percutaneous Approach (ICD-10-PCS; principal; 2021-09-03)
PROC: 04HY32Z Insertion of Monitoring Device into Lower Artery, Percutaneous Approach (ICD-10-PCS; 2021-09-03)
PROC: 5A1D90Z Performance of Urinary Filtration, Continuous, Greater than 18 hours Per Day (ICD-10-PCS; 2021-09-03)
DX: A41.9 Sepsis, unspecified organism (principal); J96.90 Respiratory failure, unspecified, unspecified whether with hypoxia or hypercapnia; N18.6 End stage renal disease; R65.21 Severe sepsis with septic shock; J18.9 Pneumonia, unspecified organism; I50.32 Chronic diastolic (congestive) heart failure; E87.2 Acidosis; N25.81 Secondary hyperparathyroidism of renal origin; A09 Infectious gastroenteritis and colitis, unspecified; G93.1 Anoxic brain damage, not elsewhere classified; I46.9 Cardiac arrest, cause unspecified; D63.1 Anemia in chronic kidney disease; Z95.0 Presence of cardiac pacemaker; Z66 Do not resuscitate; E11.22 Type 2 diabetes mellitus with diabetic chronic kidney disease; Z90.49 Acquired absence of other specified parts of digestive tract; E87.5 Hyperkalemia; Z79.82 Long term (current) use of aspirin; Z79.899 Other long term (current) drug therapy; Z88.8 Allergy status to other drugs, medicaments and biological substances; Z87.891 Personal history of nicotine dependence; Z86.73 Personal history of transient ischemic attack (TIA), and cerebral infarction without residual deficits; E11.649 Type 2 diabetes mellitus with hypoglycemia without coma; R57.0 Cardiogenic shock; D69.6 Thrombocytopenia, unspecified